=== PATIENT | female | born 1950 | race Caucasian/White ===

== ENCOUNTER 2016-11-13 16:16 | Inpatient (IN) | payer MEDICARE, OTHER ==
[2016-11-13] MEDS ORDERED: ASPIRIN 81 MG CHEW PO STA (16:50)
--- NOTE | 2016-11-13 16:57 | ED ---
General Adult HPI - General Chief complaint: Psychiatric Symptoms Stated complaint: mental health Time Seen by Provider: 11/13/16 16:22 Source: patient, EMS, RN notes reviewed, old records reviewed Mode of arrival: EMS - History of Present Illness Initial comments: 66-year-old female presenting for hallucinations for the past week. Patient states she did not know she was hallucinating until somebody told her today, so she decided to come to the ER. She states she does have a history of depression. She states she has had a history of hallucinations in the past but she believes it was because she was accidentally given illicit drugs. She also mentions that she has had chest pain for the past 2 weeks, as well as pain over her entire body. She denies any shortness of breath associated. She is currently taking Cymbalta for depression. She denies any suicidal or homicidal ideations at this time. She denies any illicit drug use or alcohol use. - Related Data Home Medications Medication Instructions Recorded Confirmed ARIPiprazole [Abilify] 10 mg PO DAILY 01/21/16 11/13/16 Atenolol [Tenormin] 25 mg PO DAILY 01/21/16 11/13/16 Benazepril/Hydrochlorothiazide 1 tab PO DAILY 01/21/16 11/13/16 [Benazepril-Hctz 20-25 mg Tab] Canagliflozin [Invokana] 100 mg PO DAILY 01/21/16 11/13/16 DULoxetine HCL [Cymbalta] 60 mg PO BID 01/21/16 11/13/16 Isosorbide Mononitrate ER [Imdur] 60 mg PO DAILY 01/21/16 11/13/16 Oxybutynin Chloride [Oxybutynin 10 mg PO DAILY 01/21/16 11/13/16 Chloride ER] Ranitidine HCl 150 mg PO BID 01/21/16 11/13/16 Simvastatin [Zocor] 20 mg PO HS 01/21/16 11/13/16 sitaGLIPtin PHOS/metFORMIN HCL 1 tab PO AC-SUPPER 01/21/16 11/13/16 [Janumet Xr 100-1,000 mg Tablet] Loratadine 10 mg PO DAILY 11/13/16 11/13/16 amLODIPine [Norvasc] 10 mg PO DAILY 11/13/16 11/13/16 Allergies Allergy/AdvReac Type Severity Reaction Status Date / Time cephalexin monohydrate Allergy Itching. Verified 11/13/16 17:00 [From Keflex] SWELLING Review of Systems ROS Statement: Those systems with pertinent positive or pertinent negative responses have been documented in the HPI. Constitutional: No fevers. No chills. No change in appetite. No unexpected weight loss. Eyes: No visual changes. No eye pain. No sensitivity to light. HENT: No sinus pressure. No ear pain. No hearing changes. No epistaxis. No sore throat. Respiratory: No cough. No SOB. No wheezing. Cardiovascular: Positive chest pain. No palpitations. No lower extremity edema. Abdomen: No abdominal pain. No nausea. No vomiting. No diarrhea. Genitourinary: No dysuria. No hematuria. No difficulty urinating. No flank pain. Musculoskeletal: No injury. No back pain. Positive body aches. Skin: No rash. No lesions. No lacerations. Neuro: No gross strength deficits. No LOC. No seizures. No headache. Psych: No confusion. No memory changes. No anxiety/depression. Positive hallucinations. ROS Other: All systems not noted in ROS Statement are negative. Past Medical History Past Medical History: Asthma, Diabetes Mellitus, Deep Vein Thrombosis (DVT), GERD/Reflux, Hyperlipidemia, Hypertension, Myocardial Infarction ([place]), Osteoarthritis ([place]) Additional Past Medical History / Comment(s): has abd. HERNIA, recent hospitalization @[facility] for "heart problems" Last Myocardial Infarction Date:: unknown History of Any Multi-Drug Resistant Organisms: None Reported Past Surgical History: Section, Heart Catheterization, Heart Catheterization With Stent, Orthopedic Surgery Additional Past Surgical History / Comment(s): ORIF RIGHT ULNA/RADIUS, left rotator cuff repair Past Anesthesia/Blood Transfusion Reactions: No Reported Reaction Date of Last Stent Placement:: 2010 Past Psychological History: Anxiety, Bipolar, Depression Smoking Status: Never smoker Past Alcohol Use History: Rare Past Drug Use History: None Reported - Past Family History Brother(s) Family Medical History: Cancer General Exam - General Exam Comments Initial Comments: General: Awake and Alert. No acute distress. Does not appear acutely ill. Eyes: JUVE, EOM intact. No nystagmus. No scleral icterus. HENT: Atraumatic, normocephalic. Mucous membranes moist. Trachea midline. Neck: The neck is supple, there is no tenderness or JVD. Cardiovascular: Regular rate and rhythm. No murmur, rub, or gallop is appreciated. Distal pulses intact. Respiratory: Lungs are clear to auscultation bilaterally. No wheezes, rales, rhonchi. No respiratory distress. Gastrointestinal: Soft, Nontender. No rebound or guarding. Non-distended. No masses or organomegaly noted. No CVA tenderness. Musculoskeletal: No tenderness. Normal ROM. No gross deformity. No strength deficits. Neurological: A&Ox3. CN II-XII grossly intact, There are no obvious motor or sensory deficits. Coordination appears grossly intact. Speech is normal. Skin: Skin is warm and dry and no rashes or lesions are noted. Psychiatric: Cooperative, appropriate mood, flat affect, normal judgment. No suicidal ideations or plan. Course Vital Signs 11/13/16 11/13/16 11/13/16 16:17 17:19 18:10 Temperature 97.4 F L Pulse Rate 71 63 74 Respiratory 16 16 16 Rate Blood Pressure 114/58 121/75 128/65 O2 Sat by Pulse 99 67 L 98 Oximetry 11/13/16 18:58 Temperature Pulse Rate 63 Respiratory 16 Rate Blood Pressure 109/61 O2 Sat by Pulse 98 Oximetry EKG Findings - EKG Comments: EKG Findings:: EKG 17:16. Sinus rhythm. Rate 68. NE 176. QRS 80. QT/QTC 418 /444. Normal axis. No STEMI. Nonspecific EKG. Medical Decision Making - Medical Decision Making 66-year-old female presenting for hallucinations. She also mentioned she's had chest pain for the past 2 weeks. She does have a history of ACS with prior stents. EKG without acute ischemia. Patient is given aspirin. Plan for medical clearance including cardiac workup prior to behavior health evaluation. CXR no acute process CT Head no acute process Initial lab work with stable CBC. BMP with evidence of FELIPA, mild electrolyte abnormality. Initial troponin elevated at 0.228 Given elevated troponin and chest pain, concern for NSTEMI. Pt reevaluated. States she still feels some chest pain, morphine ordered. No Nitro at this time as BP is on the lower side. Patient was started on heparin drip after negative CT head imaging. No history of GI bleed per discussion. Updated on results and imaging. Discussed plan for admission for further cardiac management as well as inpatient psychiatric consult. I spoke with fabiano Wallis for Dr. Lemons. She agrees with plan for admission. Agrees with consult to cardiology and Psych. - Lab Data Result diagrams: 11/13/16 17:10 11/13/16 17:10 Lab Results 11/13/16 11/13/16 11/13/16 Range/Units 17:10 17:10 17:10 WBC 6.5 (3.8-10.6) k/uL RBC 4.27 (3.80-5.40) m/uL Hgb 12.9 (11.4-16.0) gm/dL Hct 38.5 (34.0-46.0) % MCV 90.2 (80.0-100.0) fL MCH 30.2 (25.0-35.0) pg MCHC 33.5 (31.0-37.0) g/dL RDW 14.1 (11.5-15.5) % Plt Count 251 (150-450) k/uL Neutrophils % 63 % Lymphocytes % 27 % Monocytes % 6 % Eosinophils % 2 % Basophils % 0 % Neutrophils # 4.1 (1.3-7.7) k/uL Lymphocytes # 1.7 (1.0-4.8) k/uL Monocytes # 0.4 (0-1.0) k/uL Eosinophils # 0.1 (0-0.7) k/uL Basophils # 0.0 (0-0.2) k/uL APTT (22.0-30.0) sec Sodium 138 (137-145) mmol/L Potassium 5.3 H (3.5-5.1) mmol/L Chloride 109 H (98-107) mmol/L Carbon Dioxide 17 L (22-30) mmol/L Anion Gap 12 mmol/L BUN 66 H (7-17) mg/dL Creatinine 2.12 H (0.52-1.04) mg/dL Est GFR (MDRD) Af Amer 28 (>60 ml/min/1.73 sqM) Est GFR (MDRD) Non-Af 23 (>60 ml/min/1.73 sqM) Glucose 216 H (74-99) mg/dL Calcium 8.8 (8.4-10.2) mg/dL Troponin I 0.228 H* (0.000-0.034) ng/mL Urine Color Urine Appearance (Clear) Urine pH (5.0-8.0) Ur Specific [place] (1.001-1.035) Urine Protein (Negative) Urine Glucose (UA) (Negative) Urine Ketones (Negative) Urine Blood (Negative) Urine Nitrite (Negative) Urine Bilirubin (Negative) Urine Urobilinogen (<2.0) mg/dL Ur Leukocyte Esterase (Negative) Urine RBC (0-5) /hpf Urine WBC (0-5) /hpf Ur Squamous Epith Cells (0-4) /hpf Amorphous Sediment (None) /hpf Urine Bacteria (None) /hpf Hyaline Casts (0-2) /lpf Urine Mucus (None) /hpf Urine Opiates Screen (NotDetected) Ur Oxycodone Screen (NotDetected) Urine Methadone Screen (NotDetected) Ur Propoxyphene Screen (NotDetected) Ur Barbiturates Screen (NotDetected) U Tricyclic Antidepress (NotDetected) Ur Phencyclidine Scrn (NotDetected) Ur Amphetamines Screen (NotDetected) U Methamphetamines Scrn (NotDetected) U Benzodiazepines Scrn (NotDetected) Urine Cocaine Screen (NotDetected) U Marijuana (THC) Screen (NotDetected) 11/13/16 11/13/16 Range/Units 17:10 17:26 WBC (3.8-10.6) k/uL RBC (3.80-5.40) m/uL Hgb (11.4-16.0) gm/dL Hct (34.0-46.0) % MCV (80.0-100.0) fL MCH (25.0-35.0) pg MCHC (31.0-37.0) g/dL RDW (11.5-15.5) % Plt Count (150-450) k/uL Neutrophils % % Lymphocytes % % Monocytes % % Eosinophils % % Basophils % % Neutrophils # (1.3-7.7) k/uL Lymphocytes # (1.0-4.8) k/uL Monocytes # (0-1.0) k/uL Eosinophils # (0-0.7) k/uL Basophils # (0-0.2) k/uL APTT 22.5 (22.0-30.0) sec Sodium (137-145) mmol/L Potassium (3.5-5.1) mmol/L Chloride (98-107) mmol/L Carbon Dioxide (22-30) mmol/L Anion Gap mmol/L BUN (7-17) mg/dL Creatinine (0.52-1.04) mg/dL Est GFR (MDRD) Af Amer (>60 ml/min/1.73 sqM) Est GFR (MDRD) Non-Af (>60 ml/min/1.73 sqM) Glucose (74-99) mg/dL Calcium (8.4-10.2) mg/dL Troponin I (0.000-0.034) ng/mL Urine Color Yellow Urine Appearance Clear (Clear) Urine pH 5.5 (5.0-8.0) Ur Specific [place] 1.013 (1.001-1.035) Urine Protein Trace H (Negative) Urine Glucose (UA) Negative (Negative) Urine Ketones Negative (Negative) Urine Blood Negative (Negative) Urine Nitrite Negative (Negative) Urine Bilirubin Negative (Negative) Urine Urobilinogen <2.0 (<2.0) mg/dL Ur Leukocyte Esterase Small H (Negative) Urine RBC 1 (0-5) /hpf Urine WBC 7 H (0-5) /hpf Ur Squamous Epith Cells 5 H (0-4) /hpf Amorphous Sediment Rare H (None) /hpf Urine Bacteria Rare H (None) /hpf Hyaline Casts 5 H (0-2) /lpf Urine Mucus Rare H (None) /hpf Urine Opiates Screen Detected H (NotDetected) Ur Oxycodone Screen Not Detected (NotDetected) Urine Methadone Screen Not Detected (NotDetected) Ur Propoxyphene Screen Not Detected (NotDetected) Ur Barbiturates Screen Not Detected (NotDetected) U Tricyclic Antidepress Not Detected (NotDetected) Ur Phencyclidine Scrn Not Detected (NotDetected) Ur Amphetamines Screen Not Detected (NotDetected) U Methamphetamines Scrn Not Detected (NotDetected) U Benzodiazepines Scrn Not Detected (NotDetected) Urine Cocaine Screen Not Detected (NotDetected) U Marijuana (THC) Screen Not Detected (NotDetected) - EKG Data -: EKG Interpreted by Ks EKG shows normal: sinus rhythm Rate: normal - Radiology Data Radiology results: report reviewed, image reviewed Disposition Clinical Impression: NSTEMI (non-ST elevated myocardial infarction), Hallucinations, Chest pain, FELIPA (acute kidney injury) Disposition: ADMITTED IP TO THIS HOSP Condition: Undetermined Decision to Admit Reason: Admit from EC
[2016-11-13 17:23] LABS: Basophils % (A) 0 %; CH 29.4; CHCM 32.7; Eosinophils # (A) 0.1 k/uL (0-0.7); Eosinophils % (A) 2 %; HCT 38.5 % (34.0-46.0); HDW 2.47; HGB 12.9 gm/dL (11.4-16.0); Luc # (Auto) 0.13; Luc % (Auto) 2; Lymphocytes # (A) 1.7 k/uL (1.0-4.8); Lymphocytes % (A) 27 %; MCH 30.2 pg (25.0-35.0); MCHC 33.5 g/dL (31.0-37.0); MCV 90.2 fL (80.0-100.0); Mean Platelet Volume 8.1; Monocytes # (A) 0.4 k/uL (0-1.0); Monocytes % (A) 6 %; Neutrophils # (A) 4.1 k/uL (1.3-7.7); Neutrophils % (A) 63 %; RBC 4.27 m/uL (3.80-5.40); RDW 14.1 % (11.5-15.5); WBC 6.5 k/uL (3.8-10.6); WBC (Perox) 6.53
[2016-11-13 17:38] LABS: Calcium 8.8 mg/dL (8.4-10.2); Potassium 5.3 mmol/L (3.5-5.1)
[2016-11-13 17:44] LABS: Amorphous Sediment,Urine Rare /hpf; Appearance,Urine Clear (Clear); Bacteria,Urine Rare /hpf; Bilirubin,Urine Negative (Negative); Glucose,Urine (UA) Negative (Negative); Ketones,Urine Negative (Negative); Leukocyte Esterase,Urine Small (Negative); Mucus,Urine Rare /hpf; Nitrite,Urine Negative (Negative); PH, Urine 5.5 (5.0-8.0); Particle Count 3650; Protein,Urine Trace (Negative); RBC,Urine 1 /hpf (0-5); Specific Gravity,Urine 1.013 (1.001-1.035); Squamous Epithelial Cell,Urine 5 /hpf (0-4); UA Billing (MACRO vs. MICRO) MICRO; Urobilinogen,Urine <2.0 mg/dL (<2.0); WBC,Urine 7 /hpf (0-5)
[2016-11-13] MEDS ORDERED: HEPARIN SODIUM,PORCINE 5,000 UNIT/ML 1 ML VIAL IV ONE (18:29)
[2016-11-13] MEDS ORDERED: NITROGLYCERIN SL TABS 0.4 MG TAB SUBLINGUAL PRN (18:32)
--- NOTE | 2016-11-13 18:33 | CT ---
EXAMINATION TYPE: CT brain wo con DATE OF EXAM: 11/13/2016 6:26 PM COMPARISON: 01/04/2011 HISTORY: Dizziness and hallucinations. CT DLP: 1075.20 mGycm Automated exposure control for dose reduction was used. FINDINGS: There is diffuse cerebral auricle atrophy. There is no mass effect nor midline shift. There is no sig n of cranial hemorrhage. There is mucosal thickening with fluid level in the right maxillary sinus. C alvarium is intact. IMPRESSION: Cerebral atrophy. There is new right maxillary sinusitis compared to old exam. No acute intracranial abnormality.
[2016-11-13] MEDS: HEPARIN SODIUM,PORCINE/D5W PMX 25,000 UNIT in DEXTROSE/WATER 1 500ML.BAG IV SCH (18:52)
[2016-11-13] MEDS ORDERED: MORPHINE SULFATE 4 MG/ML SYRINGE IVP STA (18:57)
[2016-11-13] MEDS ORDERED: PNEUMOCOCCAL VACC-PNEUMOVAX 23 25 MCG/0.5 ML VIAL IM ONE (21:00)
--- NOTE | 2016-11-13 21:00 | XR ---
EXAMINATION TYPE: XR chest 2V DATE OF EXAM: 11/13/2016 8:53 PM COMPARISON: 11/30/2010 HISTORY: Chest pain TECHNIQUE: Frontal and lateral views of the chest are obtained. FINDINGS: There is no heart failure nor confluent pneumonic infiltrate. Heart size is normal. There are no hilar masses. There are chest leads. IMPRESSION: No active cardiopulmonary disease. No change.
[2016-11-13 21:10] LABS: Glucose,Whole Blood 296 mg/dL (75-99)
[2016-11-13] MEDS ORDERED: ALPRAZolam 0.25 MG TAB PO PRN (21:34)
[2016-11-13] MEDS ORDERED: TEMAZEPAM 15 MG CAP PO PRN (21:34)
[2016-11-13 22:24] LABS: C Reactive Protein 62.1 mg/L (<10.0); Total Bilirubin 0.7 mg/dL (0.2-1.3); Total Protein 6.3 g/dL (6.3-8.2)
[2016-11-13 23:31] LABS: Creatine Kinase MB 1.4 ng/mL (0.0-2.4)
[2016-11-13 23:41] LABS: Troponin I 0.188 ng/mL (0.000-0.034)
[2016-11-14] MEDS: HYDROmorphone 1 MG/ML 1 ML SYRINGE IVP PRN (03:14)
[2016-11-14 05:25] LABS: Basophils % (A) 1 %; CH 29.5; CHCM 32.3; Eosinophils # (A) 0.2 k/uL (0-0.7); Eosinophils % (A) 3 %; HCT 37.4 % (34.0-46.0); HDW 2.45; Luc # (Auto) 0.19; Luc % (Auto) 3; Lymphocytes # (A) 2.9 k/uL (1.0-4.8); Lymphocytes % (A) 44 %; MCH 29.4 pg (25.0-35.0); Mean Platelet Volume 8.1; Monocytes # (A) 0.4 k/uL (0-1.0); Monocytes % (A) 7 %; Neutrophils # (A) 2.8 k/uL (1.3-7.7); Neutrophils % (A) 43 %; RBC 4.07 m/uL (3.80-5.40); RDW 14.1 % (11.5-15.5); WBC 6.5 k/uL (3.8-10.6); WBC (Perox) 6.89
[2016-11-14 06:01] LABS: Calcium 8.6 mg/dL (8.4-10.2); Potassium 4.8 mmol/L (3.5-5.1)
[2016-11-14 06:04] LABS: Glucose,Whole Blood 184 mg/dL (75-99)
[2016-11-14 06:04] LABS: Creatine Kinase MB 1.1 ng/mL (0.0-2.4)
[2016-11-14 06:14] LABS: Troponin I 0.135 ng/mL (0.000-0.034)
[2016-11-14] MEDS: PANTOPRAZOLE 40 MG TABLET PO SCH (06:37)
[2016-11-14] MEDS: INSULIN LISPRO (humaLOG) 300 UNIT/3 ML VIAL SQ SCH ×4 (06:38→22:50)
--- NOTE | 2016-11-14 07:39 | HP ---
DATE OF ADMISSION: DATE OF SERVICE: 11/13/2016 CHIEF COMPLAINT: Hallucinations as well as chest pain and back pain. HISTORY OF PRESENT ILLNESS: This 66-year-old woman with a past medical history of multiple medical problems, including history of asthma, diabetes mellitus, history of deep venous thrombosis, GERD, hypertension, hyperlipidemia, history of myocardial infarction, degenerative joint disease, history of hernia, history of coronary artery disease and stent, history anxiety, bipolar and depression, being followed by Dr. Marcio Sharpe in the outpatient setting was having back pain to the lower back for the last several weeks. The pain was sharp, constant. Patient unable to sleep. Pain is also in the anterior part of the chest. Patient apparently was drinking alcohol to relieve the pain, about 3 or 4 drinks a day. The patient did not have a chance to come to the hospital because her daughter was incarcerated because of altercation and because she has to take care of the daughter's two children. The patient came to [facility]. The patient also had basic neuropathy and lower limb problems before, Dr. Baca had seen the patient previously. Details are not available at this time. The patient also had some hallucinations and patient came to [facility] and admitted for further evaluation and treatment. After admission, the EKG did not show acute abnormality. CAT scan of the brain showed also showed no acute abnormality. The labs showed multiple abnormalities including creatinine 2.12. The previous creatinine was 1.1, indicating acute renal failure. CO2 79, potassium 5.3. Troponin 0.23. Patient admitted for evaluation and treatment. There is no history of fever, rigors, chills. No history of headache, loss of consciousness, seizures. Patient had weight loss about 160 pounds which is intentional according to her. PAST MEDICAL HISTORY: History of asthma, diabetes, DVT, GERD, hypertension, hyperlipidemia, myocardial infarction, coronary artery disease and stent, history of anxiety, bipolar, depression, not otherwise specified. Medications prior to admission include: 1. Norvasc 10 mg daily. 2. Loratadine 10 mg daily. 3. Abilify 10 mg p.o. daily. 4. Cymbalta 60 mg p.o. b.i.d. 5. Invokana 100 mg p.o. daily. 6. Benazepril hydrochlorothiazide 20/25 p.o. daily. 7. Tenormin 25 mg p.o. daily. 8. Janumet XR 100/1000 one p.o. supper. 9. Zocor 20 mg p.o. q.h.s. 10. Ranitidine 150 mg p.o. b.i.d. 11. Oxybutynin 10 mg p.o. daily. 12. Imdur 60 mg p.o. daily. ALLERGIES: KEFLEX. FAMILY HISTORY: History of cancer in the family. SOCIAL HISTORY: No history of smoking, alcohol as mentioned earlier. REVIEW OF SYSTEMS: ENT: Significant diminished hearing. No diminished vision. CARDIOVASCULAR: As mentioned earlier. RESPIRATORY: As mentioned earlier. GI: No nausea. : No dysuria. NERVOUS SYSTEM: As mentioned earlier. ALLERGY/IMMUNOLOGY: As mentioned earlier. MUSCULOSKELETAL: As mentioned earlier. HEMATOLOGY/ONCOLOGY: As mentioned earlier. ENDOCRINE: As mentioned earlier. CONSTITUTIONAL: As mentioned earlier. DERMATOLOGY: Negative. RHEUMATOLOGY: As mentioned earlier. PSYCHIATRY: As mentioned earlier. PHYSICAL EXAMINATION: Patient is alert and oriented x3. Pulse 66, blood pressure 131/63, respiration 19, temperature 97 degrees, pulse ox 98%. HEENT: Conjunctivae normal. Oral mucosa moist. NECK: No jugular venous distention. No carotid bruit. No lymph node enlargement. CARDIOVASCULAR: S1 and S2, muffled. No S3, no S4. RESPIRATORY: Breath sounds diminished at the bases. No rhonchi, no crackles. Some minimal tenderness in the D12 kyphoscoliosis present. ABDOMEN: Soft, ventral hernia present. Otherwise nontender. No mass palpable. No hepatosplenomegaly. LEGS: No edema, no swelling. NERVOUS SYSTEM: Higher function as mentioned. Moves all four limbs. No focal motor deficits. LYMPHATIC: No lymphadenopathy in the neck, axillae or groin. SKIN: No ulcer, rash or bleeding. LABS: CBC within normal limits. aPTT 22.5. Potassium 5.3 and creatinine is 2.12. Troponin 0.228. LFTs are not available. UA noted. Drug screen is positive for opiates. ASSESSMENT: 1. Neck and chest pain for evaluation rule out acute coronary syndrome. 2. Troponin 0.228. 3. Rule out vertebral pathology. 4. Acute renal failure of undetermined etiology. 5. Hyperkalemia and decreased CO2 possibly secondary to of renal failure. 6. Diabetes mellitus type 2. 7. History of asthma. 8. Obesity with body mass index of 33.5. 9. History of recent intentional weight loss. 10. History of deep venous thrombosis. 11. Gastroesophageal reflux disease. 12. Hypertension. 13. Hyperlipidemia. 14. History of myocardial infarction, coronary artery disease and stent. 15. History of degenerative joint disease. 16. History of abdominal wall hernia. 17. History of right ulnar and radius open reduction and internal fixation. 18. Anxiety, bipolar, depression, not otherwise specified. 19. FULL CODE. RECOMMENDATIONS AND DISCUSSION: In this 66-year-old woman who presented with multiple complex medical issues, will monitor the patient closely, symptomatic treatment. Otherwise, I would also recommend Cardiology consultation and unstable angina protocol. I would also recommend a CT scan of the abdomen and pelvis with views of the spine also because of the pain. Other than that, basic labs are ordered. See orders for further details. Prognosis extremely guarded because of multiple complex medical issues. Discussed with the patient who understands. Further recommendations to follow. Copy of dictation forwarded to Dr. Marcio Sharpe who is the primary physician.
[2016-11-14] MEDS: IOHEXOL 350 MG/ML 25 ML BOTTLE (ORAL USE) PO PRN ×2 (08:03→09:03)
[2016-11-14] MEDS ORDERED: HEPARIN SODIUM,PORCINE 5,000 UNIT/ML 1 ML VIAL IV STA (08:11)
[2016-11-14] MEDS ORDERED: ASPIRIN 325 MG TAB PO SCH (09:00)
[2016-11-14] MEDS ORDERED: NON-FORMULARY DRUG (Canagliflozin [Invokana] 100 MG) PO SCH (09:00)
[2016-11-14] MEDS ORDERED: ALPRAZolam 0.5 MG TAB PO PRN (11:10)
[2016-11-14] MEDS ORDERED: NITROGLYCERIN SL TABS 0.4 MG TAB SUBLINGUAL PRN (11:10)
[2016-11-14] MEDS ORDERED: SODIUM CHLORIDE 0.9% 1,000 ML in EMPTY BAG 1 BAG IV ONE (11:10)
[2016-11-14] MEDS ORDERED: ASPIRIN 325 MG TAB PO STA (11:10)
[2016-11-14] MEDS ORDERED: ALPRAZolam 0.25 MG TAB PO PRN (11:10)
[2016-11-14 11:28] LABS: Glucose,Whole Blood 155 mg/dL (75-99)
--- NOTE | 2016-11-14 11:29 | P.CRDCN ---
History of Present Illness Consult date: 11/14/16 Reason for Consult (text): NSTEMI Chief complaint: hallucinations and chest pain History of present illness: This is a 66-year-old female patient with a known history of diabetes, DVT, hyperlipidemia, hypertension, OK with most recent stent to the mid LAD in January 2016, surgical removal of a benign lung mass over 30 years ago and depression. EMS was called yesterday and patient was brought to the emergency department due to complaints of hallucinations for about a week as well as complaints of chest discomfort, quite severe, radiating to the back worsened with activity and associated with shortness of breath on and off for the last 2-3 weeks. The patient has also been having episodes of dizziness and thought this was related to her [place] so she has not been taking this medication. Apparently the patient's daughter was recently incarcerated and the patient had been caring for her grandson states this is the reason for not seeking medical treatment sooner. In questioning the patient about her medications she denies taking a statin and says she was on Lipitor "a while ago" but ran out of refills. She also has not been taking aspirin or Plavix since her stent placement in January, says she just found the prescriptions for these about a month ago. Upon admission, EKG showed sinus arrhythmia without any acute ST-T wave changes. BUN and creatinine were elevated at 66 and 2.12, down to 59 and 1.70 this morning. Troponins were elevated at 0.228, 0.188 and 0.135. Chest x-ray was negative. Patient had computed tomography scan of the brain without contrast that showed cerebral atrophy and sinusitis. She has been initiated on a heparin drip. She is scheduled to go for a CT of the chest, abdomen and pelvis this morning with oral contrast only. Upon examination, patient is resting comfortably in bed she complains of continued chest discomfort at times, currently pain-free, has been receiving Dilaudid for pain. She denies further hallucinations, denies shortness of breath, dizziness, palpitations. She does complain of some swelling in her left ankle. Past Medical History Past Medical History: Asthma, Diabetes Mellitus, Deep Vein Thrombosis (DVT), GERD/Reflux, Hyperlipidemia, Hypertension, Myocardial Infarction (OK), Osteoarthritis (OA) Additional Past Medical History / Comment(s): has abd. HERNIA Last Myocardial Infarction Date:: unknown History of Any Multi-Drug Resistant Organisms: None Reported Past Surgical History: Section, Heart Catheterization, Heart Catheterization With Stent, Orthopedic Surgery Additional Past Surgical History / Comment(s): ORIF RIGHT ULNA/RADIUS, left rotator cuff repair, stent x2 Past Anesthesia/Blood Transfusion Reactions: No Reported Reaction Date of Last Stent Placement:: 2010 Past Psychological History: Anxiety, Bipolar, Depression Additional Psychological History / Comment(s): take cymbalta. pt reports hallucinations Smoking Status: Never smoker Past Alcohol Use History: Rare Past Drug Use History: None Reported - Past Family History Brother(s) Family Medical History: Cancer Medications and Allergies Home Medications Medication Instructions Recorded Confirmed Type ARIPiprazole [Abilify] 10 mg PO DAILY 01/21/16 11/13/16 History Atenolol [Tenormin] 25 mg PO DAILY 01/21/16 11/13/16 History Benazepril/Hydrochlorothiazide 1 tab PO DAILY 01/21/16 11/13/16 History [Benazepril-Hctz 20-25 mg Tab] Canagliflozin [Invokana] 100 mg PO DAILY 01/21/16 11/13/16 History DULoxetine HCL [Cymbalta] 60 mg PO BID 01/21/16 11/13/16 History Isosorbide Mononitrate ER [Imdur] 60 mg PO DAILY 01/21/16 11/13/16 History Oxybutynin Chloride [Oxybutynin 10 mg PO DAILY 01/21/16 11/13/16 History Chloride ER] Ranitidine HCl 150 mg PO BID 01/21/16 11/13/16 History Simvastatin [Zocor] 20 mg PO HS 01/21/16 11/13/16 History sitaGLIPtin PHOS/metFORMIN HCL 1 tab PO AC-SUPPER 01/21/16 11/13/16 History [Janumet Xr 100-1,000 mg Tablet] Loratadine 10 mg PO DAILY 11/13/16 11/13/16 History amLODIPine [Norvasc] 10 mg PO DAILY 11/13/16 11/13/16 History Allergies Allergy/AdvReac Type Severity Reaction Status Date / Time cephalexin monohydrate Allergy Itching. Verified 11/13/16 17:00 [From Keflex] SWELLING Physical Exam Vitals: Vital Signs Temp Pulse Pulse Resp BP BP Pulse Ox 11/14/16 08:17 97.5 F L 55 L 16 84/47 100 11/14/16 03:49 97.6 F 67 18 117/59 100 11/14/16 00:00 96.9 F L 70 18 109/55 98 11/13/16 20:00 71 18 11/13/16 19:47 97 F L 66 19 131/63 100 11/13/16 18:58 63 16 109/61 98 Intake and Output 11/13/16 11/14/16 11/14/16 22:59 06:59 14:59 Intake Total 142.875 138.098 Output Total 400 Balance -257.125 138.098 Intake: Intake, IV Titration 142.875 138.098 Amount Heparin Sodium,Porcine/ 142.875 138.098 D5w Pmx 25,000 unit In Dextrose/Water 1 500ml. bag @ 12 UNITS/KG/HR 19. 05 mls/hr IV .Q24H [facility] Rx #:[id number] Output: Urine 400 Other: Voiding Method Toilet Toilet Toilet # Voids 1 Weight 80.7 kg 80.4 kg PHYSICAL EXAMINATION: HEENT: Head is atraumatic, normocephalic. Pupils equal, round. Neck is supple. There is no elevated jugular venous pressure. HEART EXAMINATION: Heart sounds regular, S1 and S2 normal. No murmur or gallop heard. CHEST EXAMINATION: Lungs are clear to auscultation and precussion. No chest wall tenderness is noted on palpation or with deep breathing. ABDOMEN: Soft, nontender. Bowel sounds are heard. No organomegaly noted. EXTREMITIES: 1+ peripheral pulses with no evidence of peripheral edema and no calf tenderness noted. NEUROLOGIC patient is awake, alert and oriented x3. . Results 11/14/16 04:48 11/14/16 04:48 Cardiac Enzymes 11/13/16 11/14/16 Range/Units 22:36 04:48 CK-MB (CK-2) 1.4 1.1 (0.0-2.4) ng/mL Troponin I 0.188 H* 0.135 H* (0.000-0.034) ng/mL Coagulation 11/14/16 11/14/16 Range/Units 00:49 06:26 APTT 38.4 H 43.2 H (22.0-30.0) sec Lipids 11/14/16 Range/Units 04:48 Triglycerides 88 (<150) mg/dL Cholesterol 166 (<200) mg/dL HDL Cholesterol 62 H (40-60) mg/dL CBC 11/14/16 Range/Units 04:48 WBC 6.5 (3.8-10.6) k/uL RBC 4.07 (3.80-5.40) m/uL Hgb 12.0 (11.4-16.0) gm/dL Hct 37.4 (34.0-46.0) % Plt Count 239 (150-450) k/uL Comprehensive Metabolic Panel 11/14/16 Range/Units 04:48 Sodium 137 (137-145) mmol/L Potassium 4.8 (3.5-5.1) mmol/L Chloride 111 H (98-107) mmol/L Carbon Dioxide 15 L (22-30) mmol/L BUN 59 H (7-17) mg/dL Creatinine 1.70 H (0.52-1.04) mg/dL Glucose 214 H (74-99) mg/dL Calcium 8.6 (8.4-10.2) mg/dL Current Medications Generic Name Dose Route Start Last Admin Trade Name Freq PRN Reason Stop Dose Admin Hydrocodone Bitart/Acetaminophen 1 each 11/13/16 21:34 [place] 5-325 PO Q6HR PRN Pain Alprazolam 0.25 mg 11/13/16 21:34 Xanax PO TID PRN Anxiety Amlodipine Besylate 10 mg 11/14/16 09:00 Norvasc PO DAILY [facility] Aripiprazole 10 mg 11/14/16 09:00 Abilify PO DAILY [facility] Aspirin 325 mg 11/14/16 09:00 Aspirin PO DAILY [facility] Atenolol 25 mg 11/14/16 09:00 Tenormin PO DAILY [facility] Atorvastatin Calcium 10 mg 11/14/16 21:00 Lipitor PO HS [facility] Duloxetine HCl 60 mg 11/14/16 09:00 Cymbalta PO BID [facility] Hydrochlorothiazide 25 mg 11/14/16 09:00 Hydrodiuril PO DAILY [facility] Hydromorphone HCl 0.5 mg 11/13/16 21:34 11/14/16 03:14 Dilaudid IVP 0.5 mg Q6HR PRN Administration Severe Pain Heparin Sodium/Dextrose 25,000 500 mls @ 19.05 mls/hr 11/13/16 18:30 08:10 unit/ IV Solution IV 17 units/kg/hr .Q24H [facility] 26.98 mls/hr Protocol Titration 12 UNITS/KG/HR Insulin Human Lispro 0 unit 11/14/16 07:30 11/14/16 06:38 Humalog SQ 2 unit ACHS [facility] Administration Protocol Iohexol 25 ml 11/13/16 21:33 11/14/16 08:03 Omnipaque 350 Mg/Ml (For Oral Use) PO 11/14/16 21:33 25 ml Q60M PRN Administration CT Scan Isosorbide Mononitrate 60 mg 11/14/16 09:00 Imdur PO DAILY [facility] Lisinopril 20 mg 11/14/16 09:00 Zestril PO DAILY [facility] Loratadine 10 mg 11/14/16 09:00 Claritin PO DAILY [facility] Nitroglycerin 0.4 mg 11/13/16 18:32 11/13/16 18:57 Nitrostat SUBLINGUAL 0.4 mg Q5M PRN Administration Chest Pain Non-Formulary Medication 100 mg 11/14/16 09:00 Canagliflozin [Invokana] PO DAILY [facility] Oxybutynin Chloride 10 mg 11/14/16 09:00 Ditropan Xl PO DAILY [facility] Pantoprazole Sodium 40 mg 11/14/16 07:30 11/14/16 06:37 Protonix PO Not Given AC-BRKFST [facility] Temazepam 15 mg 11/13/16 21:34 Restoril PO HS PRN Insomnia Intake and Output 11/13/16 11/14/16 11/14/16 22:59 06:59 14:59 Intake Total 142.875 138.098 Output Total 400 Balance -257.125 138.098 Intake: Intake, IV Titration 142.875 138.098 Amount Heparin Sodium,Porcine/ 142.875 138.098 D5w Pmx 25,000 unit In Dextrose/Water 1 500ml. bag @ 12 UNITS/KG/HR 19. 05 mls/hr IV .Q24H [facility] Rx #:[id number] Output: Urine 400 Other: Voiding Method Toilet Toilet Toilet # Voids 1 Weight 80.7 kg 80.4 kg 11/14/16 04:48 11/14/16 04:48 EKG Interpretations (text) Sinus arrhythmia without acute ST-T wave changes Assessment and Plan Plan: Assessment and plan #1 ongoing chest pain, worse with exertion and elevated troponins significant for non-ST elevation myocardial infarction #2 history of CAD with most recent stent in January 2016, not on Plavix or aspirin at home. #3 acute kidney injury #4 diabetes #5 hypertension From cardiology's perspective, continue IV heparin. We will hydrate the patient and check CBC and BMP in the morning. We will resume statin, Plavix and aspirin. Patient to be scheduled for a cardiac catheterization with Dr. LEXUS Gastelum tomorrow. Further recommendations to follow. MANAGER SHIFT note has been reviewed, I agree with a documented findings and plan of care. Patient was seen and examined.
--- NOTE | 2016-11-14 11:32 | CT ---
EXAMINATION TYPE: CT ChestAbdPelvis wo con DATE OF EXAM: 11/14/2016 10:16 AM COMPARISON: NONE HISTORY: 66-year-old female with back pain at T12 vertebra. Weight loss. TECHNIQUE: Contiguous axial scanning of the chest, abdomen, and pelvis without IV contrast. Coronal a nd sagittal reconstructions performed. CT DLP: 1471 mGycm Automated exposure control for dose reduction was used. FINDINGS: CHEST: The heart is normal size with trace pericardial thickening/fluid. Coronary vessel calcifications are present in remarkable for coronary artery disease. The aorta is normal caliber with conventional branching anatomy and mild atherosclerotic calcificatio ns. No thoracic lymphadenopathy. There is some pleural-parenchymal scarring at the peripheral right base. No consolidation or pleural effusion. ABDOMEN: Small hiatal hernia. Noncontrast appearance of the liver, gallbladder, adrenal glands, kidneys, and atrophic pancreas show no gross abnormality. There is a 9 mm area of eggshell calcification in the mid spleen probably jose pherally calcified cyst but nonspecific. Tortuous vessels at the splenic hilum. Lack of IV contrast l imits their evaluation such as for any potential splenic artery aneurysm. No dilated small bowel, free fluid, or free air. There is a small omental fat-containing right lower abdominal ventral wall hernia within measuring 5 mm wide in the herniating fat measuring only 1.1 cm wide, axial image 78. Mild to moderate scattered stool. Oral contrast has progressed to the hepatic flexure. There is moderate stool within the right hemicol on and there is left hemicolonic diverticulosis with a redundant sigmoid colon. No pericolonic inflam matory change. There are scattered prominent but nonenlarged mesenteric lymph nodes are noted. Pelvis: Bladder is nondistended. Uterus and ovaries are visualized. No abnormal fluid collection in the pelvi s or pelvic lymphadenopathy seen. Bones: Mild degenerative changes at the hips. Bilateral L5 pars defects with grade 1 anterolisthesis L5-S1. There is moderate disc/endplate degenerative change in the lower thoracic spine and thoracolumbar noah ction with endplate irregularity and some vacuum phenomenon noted. Multiple endplate Schmorl's nodes along the lower thoracic spine. Facet arthropathy at T12-L1 with grade 1 retrolisthesis at this level. No suspicious endplate erosion s or paravertebral soft tissue abnormality is appreciated. IMPRESSION: 1. MODERATE DEGENERATIVE DISC DISEASE IN THE LOWER THORACIC SPINE AND THORACOLUMBAR JUNCTION. FACET A RTHROPATHY CAUSES A GRADE 1 RETROLISTHESIS AT T12-L1. 2. BILATERAL L5 PARS DEFECTS WITH GRADE 1 ANTEROLISTHESIS AT L5-S1. 3. SMALL HIATAL HERNIA AND A SMALL RIGHT-SIDED LOWER ABDOMINAL HERNIA WITH THE 1 CM WIDE HERNIA SAC C ONTAINING OMENTAL FAT. THE ABDOMINAL WALL DEFECT MEASURES 5 MM. 4. LEFT HEMICOLONIC DIVERTICULOSIS WITHOUT ACUTE DIVERTICULITIS.
[2016-11-14] MEDS ORDERED: ATORVASTATIN 80 MG TAB PO STA (11:37)
[2016-11-14] MEDS: DULoxetine HCL 60 MG CAPSULE.DR PO SCH ×2 (12:02→22:48)
[2016-11-14] MEDS: ARIPiprazole 10 MG TAB PO SCH (12:02)
[2016-11-14] MEDS: CLOPIDOGREL 75 MG TAB PO SCH (12:02)
[2016-11-14] MEDS: OXYBUTYNIN 10 MG TAB.ER.24 PO SCH (12:03)
[2016-11-14] MEDS: LORATADINE 10 MG TAB PO SCH (12:03)
[2016-11-14] MEDS: ATENOLOL 25 MG TAB PO SCH (12:03)
[2016-11-14] MEDS ORDERED: HEPARIN SODIUM,PORCINE 5,000 UNIT/ML 1 ML VIAL IV PRN (14:25)
--- NOTE | 2016-11-14 14:51 | ECHOF ---
Referral Reason:chest pain MEASUREMENTS -------- HEIGHT: 149.9 cm WEIGHT: 80.3 kg BP: 117/59 IVSd: 1.1 cm (0.6 - 1.1) LVIDd: 3.0 cm (3.9 - 5.3) LVPWd: 1.0 cm (0.6 - 1.1) IVSs: 1.1 cm LVIDs: 1.8 cm LVPWs: 1.4 cm Ao Diam: 3.1 cm (2.0 - 3.7) AV Cusp: 1.8 cm (1.5 - 2.6) LA Diam: 3.3 cm (2.7 - 3.8) MV EXCURSION: 18.742 mm (> 18.000) MV EF SLOPE: 99 mm/s (70 - 150) EPSS: 0.5 cm MV E Jaime: 0.65 m/s MV DecT: 246 ms MV A Jaime: 0.79 m/s MV E/A Ratio: 0.83 RAP: 5.00 mmHg RVSP: 19.39 mmHg FINDINGS -------- Sinus rhythm. This was a technically good study. Left ventricular wall thickness is normal. Overall left ventricular systolic function is normal with, an EF between 55 - 60 %. The right ventricle is normal in size and function. The left atrium is normal in size. The right atrium is normal in size. Aortic valve is trileaflet and is mildly thickened. The mitral valve leaflets are mildly thickened. Mild mitral regurgitation is present. Mild tricuspid regurgitation present. The right ventricular systolic pressure, as measured by Doppler, is 19.39mmHg. Pulmonic valve appears structurally normal. The aortic root size is normal. The pericardium is normal. CONCLUSIONS -------- 1. Sinus rhythm. 2. Mild mitral regurgitation is present. 3. Mild tricuspid regurgitation present. 4. The right ventricular systolic pressure, as measured by Doppler, is 19.39mmHg. 5. Pulmonic valve appears structurally normal. 6. The aortic root size is normal. 7. The pericardium is normal. 8. This was a technically good study. 9. Left ventricular wall thickness is normal. 10. Overall left ventricular systolic function is normal with, an EF between 55 - 60 %. 11. The right ventricle is normal in size and function. 12. The left atrium is normal in size. 13. The right atrium is normal in size. 14. Aortic valve is trileaflet and is mildly thickened. 15. The mitral valve leaflets are mildly thickened. PRODUCT SAFETY SPECIALIST: Kristy Garcia RDCS
[2016-11-14] MEDS: HYDROcodone/APAP 5-325MG 1 EACH TAB PO PRN ×2 (14:54→22:51)
[2016-11-14] MEDS: HYDROCHLOROTHIAZIDE 25 MG TAB PO SCH (15:01)
[2016-11-14] MEDS: ISOSORBIDE MONONITRATE ER 60 MG TAB.ER.24H PO SCH (15:01)
[2016-11-14] MEDS: amLODIPine 10 MG TAB PO SCH (15:01)
[2016-11-14] MEDS: LISINOPRIL 20 MG TAB PO SCH (15:01)
[2016-11-14] MEDS: SODIUM CHLORIDE 0.9% 1,000 ML IV SCH ×2 (15:02→22:47)
[2016-11-14 15:31] VITALS: BMI 38.3
[2016-11-14 15:54] LABS: Hemoglobin A1C 9.1 % (4.2-6.1)
[2016-11-14 16:16] LABS: Glucose,Whole Blood 213 mg/dL (75-99)
--- NOTE | 2016-11-14 17:21 | P.CN ---
Psychiatric Consult - . Consult date: 11/14/16 Consult:: 11/14/16 16:55 Date of consultation: [11/14/2016] Reason for consultation: Visual hallucinations Identifying data and history of present illness: The patient is 66-year-old female, who was admitted to the medical floor due to chest pain and she reported hallucinations. The patient stated that her hallucination just started 2 weeks ago, and it's only visual hallucination. She described her hallucinations as seeing things is not existing and her daughter and other family members get angry about reporting that to them. Patient gave examples that she saw her neighbor's dog drawing at the backyard jarrett. Patient denies any any prior history of hallucinations but she admitted to prior history of depression and anxiety. The patient denies any current auditory or visual hallucinations and she denies feeling hopeless or suicidal. Patient states that she has been taking antidepressant medication Cymbalta for the past few years and she feels that the very helpful for depression and anxiety. Patient denies any history of manic episodes including sustained period of time with elevated or irritable mood, uninhibited behavior, grandiosity or inflated self-esteem. The patient denies any history of psychosis including paranoid ideation auditory or visual hallucinations. The patient reports has been suffering from chronic pain, and recently for the past months is started to drink alcohol to cope with her pain. She reports has multiple binge drinking over the past month. She relates her visual hallucinations to do heavy drinking over the past month. Past psychiatric history: Patient reports prior psychiatric hospitalization but she couldn't give more details. Apparently she was admitted at this hospital a few years ago and according to the record, the patient was admitted to the psychiatric floor in 2012 after psychotic episode and probably induced by poor medication compliance. At that time, the psychiatrist restarted risperidone and patient was discharged on risperidone and Cymbalta. According to the patient, she denies taking any other medications besides Cymbalta. Substance use history: Patient reports remote history of other call use disorder and she was able to control her drinking for years, but she reports for the last months has multiple binge of drinking. Past medical history: Myocardial infarction Acute kidney injury Hearing problems Chronic back pain ALLERGIES: Keflex Home medications: Cymbalta 60 mg twice daily Family history of psychiatric illness: Her daughter 5 years ago due to overdose. According to prior medical record, patient has a sister suffer from depression Brief social history: The patient is 66-year-old. She is currently , lives it was her daughter and 2 grandchildren. Patient on Social Security disability. She completed education up to 10th grade. Mental status examination: The patient was seen in [facility], morbidly obese, female. The patient was partially disheveled. Her eye contact is appropriate. Her affect was expressive. She reports her mood as 'fine'. She denies any suicidal or homicidal thoughts. She denies any form of hallucinations or perceptual disturbances. The patient was fully alert, oriented to time place and person and situation. Cognitive function looks intact. Speech was loud that's mainly because the patient has a problem with heating. Assessment: The patient has prior diagnosis with major depressive disorder with psychotic features, but her visual hallucinations at this time are not related to her mood , and the patient currently looked presented with any more problems. The patient might had visual hallucinations related to alcohol. 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 Recommendations: Continue the patient on home psychotropic medication Cymbalta 60 mg by mouth twice a day. Patient to follow up with her outpatient psychiatrist for further monitoring of of any psychotic symptoms.
[2016-11-14 20:55] LABS: Glucose,Whole Blood 174 mg/dL (75-99)
[2016-11-14] MEDS ORDERED: ATORVASTATIN 10 MG TAB PO SCH (21:00)
[2016-11-14] MEDS: HEPARIN SODIUM,PORCINE/D5W PMX 25,000 UNIT in DEXTROSE/WATER 1 500ML.BAG IV SCH (22:47)
[2016-11-15] MEDS: HYDROcodone/APAP 5-325MG 1 EACH TAB PO PRN ×2 (04:25→18:09)
[2016-11-15 05:58] LABS: Glucose,Whole Blood 183 mg/dL (75-99)
[2016-11-15 06:03] LABS: Basophils % (A) 1 %; CH 29.4; CHCM 31.6; Eosinophils # (A) 0.2 k/uL (0-0.7); Eosinophils % (A) 3 %; HCT 36.9 % (34.0-46.0); HDW 2.49; HGB 11.4 gm/dL (11.4-16.0); Luc # (Auto) 0.14; Luc % (Auto) 2; Lymphocytes # (A) 3.1 k/uL (1.0-4.8); Lymphocytes % (A) 49 %; MCV 93.8 fL (80.0-100.0); Mean Platelet Volume 8.3; Monocytes # (A) 0.4 k/uL (0-1.0); Monocytes % (A) 6 %; Neutrophils # (A) 2.5 k/uL (1.3-7.7); Neutrophils % (A) 40 %; RBC 3.94 m/uL (3.80-5.40); RDW 14.1 % (11.5-15.5); WBC 6.4 k/uL (3.8-10.6); WBC (Perox) 6.75
[2016-11-15] MEDS: PANTOPRAZOLE 40 MG TABLET PO SCH (06:13)
[2016-11-15] MEDS: amLODIPine 10 MG TAB PO SCH (06:13)
[2016-11-15] MEDS: ARIPiprazole 10 MG TAB PO SCH (06:13)
[2016-11-15] MEDS: ASPIRIN 81 MG CHEW PO SCH (06:14)
[2016-11-15] MEDS: CLOPIDOGREL 75 MG TAB PO SCH (06:14)
[2016-11-15] MEDS: ATENOLOL 25 MG TAB PO SCH (06:14)
[2016-11-15] MEDS: HYDROCHLOROTHIAZIDE 25 MG TAB PO SCH (06:14)
[2016-11-15] MEDS: DULoxetine HCL 60 MG CAPSULE.DR PO SCH ×2 (06:14→20:59)
[2016-11-15] MEDS: ISOSORBIDE MONONITRATE ER 60 MG TAB.ER.24H PO SCH (06:15)
[2016-11-15] MEDS: LISINOPRIL 20 MG TAB PO SCH (06:15)
[2016-11-15] MEDS: OXYBUTYNIN 10 MG TAB.ER.24 PO SCH (06:15)
[2016-11-15] MEDS: LORATADINE 10 MG TAB PO SCH (06:15)
[2016-11-15] MEDS: SODIUM CHLORIDE 0.9% 1,000 ML IV SCH ×4 (06:15→15:57)
[2016-11-15] MEDS: INSULIN LISPRO (humaLOG) 300 UNIT/3 ML VIAL SQ SCH ×4 (06:26→20:59)
[2016-11-15 07:34] LABS: Calcium 9.8 mg/dL (8.4-10.2)
[2016-11-15 07:52] LABS: Potassium 6.3 mmol/L (3.5-5.1)
[2016-11-15] MEDS ORDERED: SODIUM POLYSTYRENE SULFONATE 15 GM/60 ML BOTTLE PO STA (08:21)
[2016-11-15] MEDS ORDERED: diphenhydrAMINE 50 MG/ML 1 ML VIAL ONE (10:43)
[2016-11-15] MEDS ORDERED: LIDOCAINE 2% INJ 20 MG/ML (20 ML MDV) ONE (10:43)
[2016-11-15] MEDS ORDERED: MIDAZOLAM 2 MG/2 ML VIAL ONE (10:43)
[2016-11-15] MEDS ORDERED: IV FLUID CONTINUATION 650 ML IV ONE (10:50)
[2016-11-15] MEDS ORDERED: VERAPAMIL 2.5 MG/ML 2 ML AMP ONE (10:55)
[2016-11-15] MEDS ORDERED: diphenhydrAMINE 50 MG/ML 1 ML VIAL IVP ONE (11:18)
[2016-11-15] MEDS ORDERED: MIDAZOLAM 2 MG/2 ML VIAL IVP ONE (11:19)
--- NOTE | 2016-11-15 11:19 | PN ---
DATE Of SERVICE: 11/14/2016 This 66-year-old woman was admitted hallucinations. She has chest pain and back pain. She is being closely monitored at this time. Cardiology is following the patient closely and recommending possible hydration and possible cardiac catheterization. Otherwise, Psychiatry also has seen the patient. A 2-D echo with Doppler been done, which showed ejection fraction of 50% to 60%. Other than that, chest, abdomen and pelvis CT scan was done which showed moderate degenerative joint disease of the lower thoracic spine and thoracolumbar junction with as well as bilateral L5 pars defect and small hiatal hernia and left hemicolonic diverticulosis without any diverticulitis. The patient is being closely monitored. PAST MEDICAL HISTORY: Reviewed. REVIEW OF SYSTEMS: CARDIOVASCULAR: No angina, no palpitations. LUNGS: Clear to auscultation. GI: As mentioned. MUSCULOSKELETAL: As mentioned. Current medications are reviewed and include: 1. [place] 5 mg every 6 p.r.n. 2. Xanax 0.5 t.i.d. 3. Norvasc 10 mg daily. 4. Abilify 10 mg daily. 5. Aspirin 81 mg daily. 6. Tenormin 25 mg daily. 7. Lipitor 10 mg at bedtime. 8. Heparin. 9. Hydrodiuril 25 mg daily. 10. Dilaudid. 11. Imdur 60 mg. 12. Zestril 20 mg daily. 13. Claritin 10 mg daily. 14. Nitrostat. 15. Protonix. 16. Restoril. PHYSICAL EXAMINATION: HEENT: Alert, oriented x3. Pulse is 55, blood pressure 83/48, respirations 16, temperature 97.6, pulse 100% on 2 L. HEENT: Conjunctivae normal. CARDIOVASCULAR: S1 and S2 muffled. LUNG: Breath sounds diminished at the bases. A few scattered rhonchi and crackles. ABDOMEN: Soft, nontender. EXTREMITIES: Legs no edema. NERVOUS SYSTEMS: No focal deficits. LABS: Creatinine is 1.7, mildly improved. Troponin 0.135. Otherwise other labs are noted. ASSESSMENT: 1. Neck and c pain for evaluation, possible acute coronary syndrome with troponin 0.228. 2. Back pain. 3. Severe degenerative joint disease at lower thoracic at T12 and L1. 4. Acute renal failure of undetermined etiology, possibly prerenal factors. 5. Hypokalemia. 6. Decreased CO2, possibly secondary to renal failure. 7. Diabetes mellitus type 2. 8. History of asthma. 9. Obesity with body mass index of 33.5. 10. History of recent intentional weight loss. 11. History of deep venous thrombosis. 12. History of gastroesophageal reflux disease. 13. Hypertension, essential. 14. Hyperlipidemia. 15. History of myocardial infarction, coronary artery disease, stent. 16. History of degenerative joint disease. 17. History of abdominal wall hernia. 18. History of right ulnar and radial open reduction and internal fixation. 19. History of anxiety, bipolar, depression, not otherwise specified. 20. FULL CODE. RECOMMENDATIONS: Continue current medications, continue with monitoring and symptomatic treatment. Otherwise at this time I would recommend continue with hydration. Follow closely with cardiology. Proceed with cardiac catheterization. Otherwise, will also get Dr. Jacob for evaluation of the back pain and abnormal CT scan of the vertebrae also. Psychiatric input appreciated. The prognosis is guarded because of multiple complex medical issues. Further recommendations to follow. TARIQD
[2016-11-15] MEDS ORDERED: LIDOCAINE 2% INJ 20 MG/ML SQ ONE (11:25)
[2016-11-15] MEDS ORDERED: IODIXANOL 320 MG/ML 100 ML INTRAARTER ONE (11:40)
[2016-11-15] MEDS ORDERED: RX INFO: IV CONTRAST WAS GIVEN 1 EACH MISC MISCELLANE PRN (12:23)
[2016-11-15 12:28] LABS: Glucose,Whole Blood 133 mg/dL (75-99)
--- NOTE | 2016-11-15 14:53 | PN ---
This lady presented with a non-ST elevation NH has a previous LAD PCI. I advised her regarding coronary angiography and intervention. Risks, benefits, options, rationale were carefully explained. She understands all details and wishes to proceed. I also hydrate her and creatinine is improved to 1.54. However, she received amlodipine and benazepril and she is slightly hyperkalemic. I gave her some Kayexalate and I am going to hydrate her. Blood pressure is also low. She has type 2 diabetes mellitus as well. We will hydrate her. Give her Kayexalate and we will probably proceed with coronary angiography after a re-evaluate her. I discussed my thoughts in detail with the patient. Her chest pain has improved but troponin profile suggests a non-ST elevation NH.
[2016-11-15 16:32] VITALS: RESP 18
[2016-11-15 16:51] LABS: Glucose,Whole Blood 216 mg/dL (75-99)
[2016-11-15 20:49] LABS: Glucose,Whole Blood 212 mg/dL (75-99)
[2016-11-15] MEDS ORDERED: ATORVASTATIN 40 MG TAB PO SCH (21:00)
[2016-11-15] MEDS: HYDROmorphone 1 MG/ML 1 ML SYRINGE IVP PRN (22:30)
[2016-11-16] MEDS: SODIUM CHLORIDE 0.9% 1,000 ML IV SCH ×3 (01:35→03:55)
[2016-11-16] MEDS: HYDROcodone/APAP 5-325MG 1 EACH TAB PO PRN ×2 (03:53→13:43)
[2016-11-16 06:16] LABS: Glucose,Whole Blood 174 mg/dL (75-99)
[2016-11-16 06:24] LABS: Basophils % (A) 0 %; CH 28.7; CHCM 31.9; Eosinophils # (A) 0.1 k/uL (0-0.7); Eosinophils % (A) 2 %; HCT 34.6 % (34.0-46.0); HGB 11.6 gm/dL (11.4-16.0); Luc # (Auto) 0.12; Luc % (Auto) 2; Lymphocytes # (A) 2.1 k/uL (1.0-4.8); Lymphocytes % (A) 39 %; MCH 30.2 pg (25.0-35.0); MCHC 33.4 g/dL (31.0-37.0); MCV 90.4 fL (80.0-100.0); Mean Platelet Volume 7.7; Monocytes # (A) 0.4 k/uL (0-1.0); Monocytes % (A) 8 %; Neutrophils # (A) 2.6 k/uL (1.3-7.7); Neutrophils % (A) 48 %; RBC 3.83 m/uL (3.80-5.40); RDW 13.8 % (11.5-15.5); WBC 5.5 k/uL (3.8-10.6); WBC (Perox) 5.85
[2016-11-16] MEDS: INSULIN LISPRO (humaLOG) 300 UNIT/3 ML VIAL SQ SCH ×2 (06:32→12:21)
[2016-11-16] MEDS: PANTOPRAZOLE 40 MG TABLET PO SCH (06:32)
[2016-11-16 06:38] LABS: Anion Gap 6 mmol/L; Blood Urea Nitrogen 26 mg/dL (7-17); Calcium 8.4 mg/dL (8.4-10.2); Carbon Dioxide 20 mmol/L (22-30); Chloride 113 mmol/L (98-107); Glucose 162 mg/dL (74-99); Non-African American GFR(MDRD) 50 (>60 ml/min/1.73 sqM); Potassium 5.3 mmol/L (3.5-5.1); Sodium 139 mmol/L (137-145)
[2016-11-16] MEDS: DULoxetine HCL 60 MG CAPSULE.DR PO SCH (07:34)
[2016-11-16] MEDS: CLOPIDOGREL 75 MG TAB PO SCH (07:34)
[2016-11-16] MEDS: OXYBUTYNIN 10 MG TAB.ER.24 PO SCH (07:34)
[2016-11-16] MEDS: ASPIRIN 81 MG CHEW PO SCH (07:34)
[2016-11-16] MEDS: ARIPiprazole 10 MG TAB PO SCH (07:34)
[2016-11-16] MEDS: ATENOLOL 25 MG TAB PO SCH (07:34)
[2016-11-16] MEDS: LORATADINE 10 MG TAB PO SCH (07:34)
[2016-11-16 07:41] VITALS: PULSE 72
[2016-11-16] MEDS ORDERED: SODIUM POLYSTYRENE SULFONATE 15 GM/60 ML BOTTLE PO ONE (09:18)
--- NOTE | 2016-11-16 11:18 | PN ---
DATE OF SERVICE: 11/15/2016 This is a 66-year-old woman who was admitted with chest pain and multiple medical problems, had cardiac catheterization. The cardiac cath, the full official report is pending. Cardiac catheterization did not show any significant coronary artery disease. Patient also had a 2-D echo with Doppler, which showed ejection fraction about 55% to 60%. Patient also had a CAT scan of the abdomen and pelvis which was reviewed, previously. Moderate DJD was noted. No chest pain or palpitation. No fever. On exam, alert and oriented x3. Pulse 69, blood pressure 94/61, respiratory rate 18, temperature 97.6, pulse ox 98% on 2 L. CHEST: Conjunctivae normal. NECK: No jugular venous distension. CARDIOVASCULAR: S1, S2, muffled, RESPIRATORY: Breath sounds diminished at the bases. Bilateral scattered rhonchi, no crackles. Abdomen is soft, nontender. LEGS: No edema, no swelling. NERVOUS SYSTEM: No focal deficits. LABS: Potassium 6.3 then, now 5.5, creatinine is 1.54. ASSESSMENT: 1. Neck and chest pain for evaluation, possibly [place] with a troponin of 0.228 and cardiac that is showing mild to modearte significant coronary artery disease. 2. Back pain. 3. Severe degenerative joint disease of the lower thoracic at T12 and L1. 4. Acute renal failure, undetermined etiology, possible prerenal factors. 5. Hyperkalemia secondary to renal failure. 6. Decreased CO2, possible secondary to renal failure. 7. Diabetes mellitus type 2. 8. History of asthma. 9. History of obesity with a body mass index of 33.5. 10. History of recent intentional weight loss. 11. History of deep venous thrombosis. 12. History of gastroesophageal reflux disease. 13. Hypertension, essential. 14. Hyperlipidemia. 15. History of myocardial infarction, coronary artery disease and stent. 16. History of degenerative joint disease. 17. History of abdominal wall hernia. 18. History of right ulnar and radial open ORIF. 19. History of anxiety, bipolar depression, not otherwise specified. 20. FULL CODE. RECOMMENDATIONS: Recommend to continue current medications. Continue with the symptomatic treatment. Otherwise, I would recommend monitor potassium closely. Closely follow with Cardiology and prognosis guarded. Further recommendations to follow. Psychiatry has also been consulted. MTDD
[2016-11-16 12:30] LABS: Glucose,Whole Blood 155 mg/dL (75-99)
--- NOTE | 2016-11-16 12:34 | P.PN ---
Subjective Principal diagnosis: Chest pain This is a 66-year-old female patient with known history of diabetes, hyperlipidemia, hypertension, CAD with prior stenting to the mid LAD in January 2016, prior DVT, prior lung mass, depression. She presented to the hospital with symptoms of chest discomfort. Patient also was not taking her aspirin or Plavix at home for approximately one month now. Her creatinine on admission was 2.1, yesterday 1.5 prior to the cardiac cath, 1.1 this morning. Potassium 5.3. Cardiac catheterization performed yesterday revealed a patent previously stented site was a mild 40-45% lesion in that vessel. She was advised maximum medical therapy, also advised strongly regarding the importance of taking her medications. Blood pressure this morning 113/80 with a heart rate in the 70s. She was complaining of some chest pain this morning, she states the pain worsens with taking deep breaths. Objective - Vital Signs Vital signs: Vital Signs Temp 97.6 F 11/16/16 07:36 Pulse 72 11/16/16 07:36 Resp 18 11/16/16 07:36 BP 113/83 11/16/16 07:36 Pulse Ox 100 11/16/16 07:36 Intake & Output 11/15/16 11/16/16 11/16/16 18:59 06:59 18:59 Intake Total 580 1450 260 Output Total 800 300 Balance -220 1150 260 Weight 82.4 kg Intake: IV 100 800 Sodium Chloride 0.9% 1, 800 000 ml @ 100 mls/hr IV . Q10H VIOLETTA Rx#:[id number] Oral 480 650 260 Output: Urine 800 300 Other: Voiding Method Toilet Toilet # Voids 1 - Exam PHYSICAL EXAMINATION: HEENT: Head is atraumatic, normocephalic. Pupils equal, round. Neck is supple. There is no elevated jugular venous pressure. HEART EXAMINATION: Heart S1, S2 normal. No murmur or gallop heard. CHEST EXAMINATION: Lungs are clear to auscultation and precussion. Positive chest wall tenderness is noted on palpation and with deep breathing. ABDOMEN: Soft, nontender. Bowel sounds are heard. No organomegaly noted. Right groin soft, no evidence of any hematoma. EXTREMITIES: 2+ peripheral pulses with no evidence of peripheral edema and no calf tenderness noted. NEUROLOGIC patient is awake, alert and oriented -3. . - Labs CBC & Chem 7: 11/16/16 05:36 11/16/16 05:36 Labs: Abnormal Lab Results - Last 24 Hours (Table) 11/15/16 11/15/16 11/16/16 Range/Units 16:49 20:46 05:36 Potassium 5.3 H (3.5-5.1) mmol/L Chloride 113 H (98-107) mmol/L Carbon Dioxide 20 L (22-30) mmol/L BUN 26 H (7-17) mg/dL Creatinine 1.10 H (0.52-1.04) mg/dL Glucose 162 H (74-99) mg/dL POC Glucose (mg/dL) 216 H 212 H (75-99) mg/dL 11/16/16 Range/Units 06:15 Potassium (3.5-5.1) mmol/L Chloride (98-107) mmol/L Carbon Dioxide (22-30) mmol/L BUN (7-17) mg/dL Creatinine (0.52-1.04) mg/dL Glucose (74-99) mg/dL POC Glucose (mg/dL) 174 H (75-99) mg/dL Assessment and Plan (1) HTN (hypertension) Status: Acute (2) Hyperlipemia Status: Acute (3) Diabetes Status: Acute (4) Presence of stent in LAD coronary artery Status: Acute (5) S/P cardiac cath Status: Acute (6) FELIPA (acute kidney injury) Status: Acute (7) Chest pain Status: Acute Plan: From cardiology's perspective, we'll give the patient 15 g of Kayexalate, check her potassium level again at 2 PM, if stable she may be able to be discharged home. We will make her a follow-up appointment in the office post discharge with Dr. Haydee Gastelum in 2 weeks. DNP note has been reviewed, I agree with a documented findings and plan of care. Patient was seen and examined.
[2016-11-16 12:40] VITALS: TEMP 97.5
--- NOTE | 2016-11-16 13:07 | CC ---
DATE OF SERVICE: 11/15/2016 PROCEDURE: Left heart catheterization, coronary angiography. Performed by Dr. Delphine Gastelum. CLINICAL INFORMATION: Mrs. Colleen Plata is a 66-year-old lady with a history of type 2 diabetes, hypertension, hyperlipidemia, CAD, who underwent stenting of mid LAD performed by Dr. Sudha Gastelum in January of 2016. However, she did not take her aspirin and Plavix as advised and was lost to followup. She finally came into the hospital with episode of chest pain and a troponin elevation suggestive of [id number] NM and continued to have chest pain. She has mild chronic kidney disease secondary to diabetes and also hyperkalemia. She was hydrated since yesterday and had hyperkalemia which was also addressed with the Kayexalate. She was advised to have coronary angiography in view of non-ST elevation NM and ongoing chest pain. PROCEDURE NOTE: Under local anesthesia and strict aseptic strict precautions, a 6 Salvadorean introducer was placed in the right radial artery. I use a standard Ramez catheters to perform coronary angiography and the same right Ramez catheter was used to check LV pressures but LV gram was not performed. Patient tolerated the procedure well. She received about 50 to 55 mL of dye during the procedure. CARDIAC CATHETERIZATION FINDINGS: The left end-diastolic pressure was about 15 mmHg and there was no gradient across aortic valve. CORONARY ANGIOGRAPHIC FINDINGS LEFT MAIN CORONARY ARTERY: This is a short, patent vessel free of significant disease that bifurcates into LAD and circumflex. There is mild calcification noted. Left main itself is free of significant disease. LEFT ANTERIOR DESCENDING CORONARY ARTERY: This is a good caliber vessel, proximally as a decent caliber, gives off a large diagonal branch and after the diagonal branch, there is stented segment, which is widely patent with a no more than 35% narrowing. Beyond the stented segment in the CROATIAN projection, there is an eccentric 40% to 45% narrowing which is unchanged from the previous study from January of last year. The stented segment is patent, the flow is brisk in the LAD and the diagonal also is a large caliber, large distribution vessel that is free of significant disease, has minor diffuse irregularities, which are unchanged from before. LAD therefore has a 40% plaque beyond the stented segment, but the plaque and the appearance is very stable comparable to the previous study. LEFT POSTERIOR CIRCUMFLEX CORONARY ARTERY: This is a nondominant vessel, has a 40% proximal ostial stenosis, caliber improves. It runs laterally and gives off a posterolateral branch and a small AV groove branch. The entire circumflex system is free of significant disease other than the proximal portion/ostium which has about a 40% narrowing. RIGHT CORONARY ARTERY: Technically a dominant vessel, has about a 40% proximal lesion unchanged from before. Midportion that is somewhat ectatic. No significant disease. There is another 35% distally and it bifurcates into PDA and PLV. The PLV is small in caliber, diffusely diseased. The PDA is larger in caliber but the distal part of the PDA has subtotal occlusion and this area may be responsible for patient's troponin. The distal branches of the PDA show that there is some subtotal occlusion towards the end of the branching area and this may represent some of the troponin elevation, but there are no critical blockages. There is mild to moderate diffuse disease in the branches of RCA and throughout. Right coronary artery is a dominant vessel. LEFT VENTRICULOGRAM: This was not performed. FINAL IMPRESSION: This patient has a patent left anterior descending artery at the site of previous stenting. There is a 40% plaque beyond the stented segment unchanged from before. There is diffuse disease in the distal branches of the right coronary artery, which is a dominant vessel and this may be responsible for her troponin elevation. Circumflex has a 40% ostial lesion unchanged. Filling pressures are acceptable and LV gram was not performed. Only about 55 mL of dye was used. RECOMMENDATION: Findings were discussed with the patient at length. I also talked to her daughter by phone. Will continue medical therapy with risk factor modification, but no intervention at this time.
--- NOTE | 2016-11-16 13:10 | LTR ---
November 15, 2016 RE: Colleen Plata Dear Marcio, Thank you for opportunity to participate in the care of Mrs. Colleen Plata. I am pleased to report to you that she does not have any significant progression of disease. There is evidence of mid LAD disease of about 40%, plaque is unchanged. She has distal branches of RCA have mildly diffuse disease and this may explain her troponin leak. Will continue aggressive medical therapy with risk factor modification and I have advised her regarding complaint with medication. We will hydrate her, check a BUN and creatinine and send her home tomorrow if she remains stable. Thank you for your referral and please call for questions. With kindest regards. Sincerely yours, ELYSIA AKERS MD
[2016-11-16 13:23] VITALS: BP 143/86
--- NOTE | 2016-11-16 14:10 | CONS ---
DATE OF CONSULTATION: 11/16/2016 REASON FOR CONSULT: Hyperkalemia, renal failure. HISTORY OF PRESENT ILLNESS: Patient is a 66-year-old white female who was admitted to the hospital with a history of hallucinations. She also had some chest pain and back pain at the time of admission. She was found to have an elevated troponin at 0.2. Patient was seen by Cardiology and was taken for cardiac catheterization for a [id number] myocardial infarction, and persistent chest pain. On cardiac cath, patient was found to have diffuse disease in the distal branches of the right coronary artery, 40% lesion in the circumflex and patient is being managed with medical therapy. Her potassium was elevated at 5.3 on initial admission and it did go up to 6.3. It is now at 5.3 mEq/L. She has received Kayexalate. Patient had been on NILDA inhibitors which are now discontinued. Serum creatinine was 2.1 on initial admission. It is now down to 1.10 mg/dL. The patient was also mildly acidotic with CO2 at about 17 and that has improved now to about 20. PAST MEDICAL HISTORY: Hypertension, type 2 diabetes, asthma, history of DVT, gastroesophageal reflux disease, history of [place], osteoarthritis, hyperlipidemia. PAST SURGICAL HISTORY: , cardiac catheterization, orthopedic surgery, ORIF right ulna radius, rotator cuff surgery, coronary stent placement. Medications prior to admission included Abilify, Tenormin, Benazepril, hydrochlorothiazide, Invokana, Cymbalta, Imdur, Zocor, Ranitidine, oxybutynin, Norvasc, loratadine, Janumet. Allergies include CEPHALEXIN. REVIEW OF SYSTEMS: As per HPI. Other systems negative On examination, patient is currently comfortable, awake, not in any acute distress. Examination of the heart, S1 and S2. Examination of the lungs, bilateral breath sounds are heard. Abdomen is soft, nontender. Examination of the lower extremities shows no evidence of edema. MUSIC PROMOTER exam is grossly intact. Labs show sodium 139, potassium 5.3, chloride of 113, CO2 of 20, BUN 26, serum creatinine 1.1. Hemoglobin 11.6 g/dL. ASSESSMENT: 1. Acute kidney injury, most likely prerenal, currently improved. 2. Hyperkalemia at the time of admission associated with acute kidney injury and patient had been on NILDA inhibitors at the time of admission. 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 Currently, the potassium is down to 5.3. Patient is getting another dose of Kayexalate. She can be discharged with plans to follow up as outpatient and repeat labs as outpatient. Patient is advised regarding low potassium diet. She will likely benefit from use of diuretics as an outpatient, which can be started in the next few days once renal function stabilizes. We will need to be careful with the NILDA inhibitors given the persistent hyperkalemia. Sometimes use of loop diuretics along with a small dose of sodium bicarb helps to counteract the hyperkalemia from type IV RTA. Patient is advised to continue to avoid the use of NSAIDs. 3. Coronary artery disease, status post non-Q-wave myocardial infarction, status post cardiac catheterization and coronary stent placement. PLAN: Patient can be discharged, maintain her on low-potassium diet. Avoid NILDA inhibitors for now. Repeat labs as outpatient. Consider loop diuretics and small dose of sodium bicarb to help with hyperkalemia if persists as outpatient. Thank you for this consultation.
--- NOTE | 2016-11-17 15:47 | DS ---
DATE OF ADMISSION: 11/13/2016 DATE OF DISCHARGE: 11/16/2016 FINAL DIAGNOSES: 1. Neck and chest pain for evaluation; possibly unstable angina with a troponin 0.228 with cardiac catheterization showing mild to moderate coronary artery disease. 2. Patent stent. 3. Back pain. 4. Severe degenerative joint disease in lower T12 and L1. 5. Mild hyperkalemia. 6. Acute renal failure, possibly prerenal. 7. Hyperkalemia secondary to renal failure. 8. Decreased carbon dioxide, possibly secondary to renal failure. 9. Diabetes mellitus, type 2. 10. History of asthma. 11. Obesity; body mass index of 33.5. 12. History of recent intentional weight loss. 13. History of deep venous thrombosis. 14. History of gastroesophageal reflux disease. 15. Hypertension, essential. 16. Hyperlipidemia. 17. History of myocardial infarction and coronary artery disease, stent. 18. History of degenerative joint disease. 19. History of abdominal wall hernia. 20. History of right ulnar and radial open reduction internal fixation. 21. History of anxiety, bipolar, depression not otherwise specified. 22. FULL CODE. DISCHARGE DISPOSITION: The patient will be discharged in stable condition with guarded prognosis. Cardiology cleared the patient for discharge and Nephrology also cleared the patient for discharge. HISTORY OF PRESENT ILLNESS: This 66-year-old woman with a past medical history of multiple medical problems, as mentioned earlier, was admitted with chest and back pain, possible unstable angina. Troponin was 0.228 and cardiac catheterization showed mild to moderate coronary artery disease and patent stent. Treated symptomatically. Potassium was 5.3. Dr. Johnson saw the patient. Creatinine improved to 1.10. The patient will be discharged in stable condition with guarded prognosis with the following advice and medications: 1. Diet is cardiac. 2. Activity limited until followup. 3. No NILDA inhibitors at this time because of renal failure and hyperkalemia. 4. Follow up with Dr. Marcio Sharpe in 2 to 3 days. 5. Follow up with Dr. Jacob as advised. 6. Abilify 10 mg p.o. daily. 7. Aspirin 81 mg daily. 8. Tenormin 25 mg daily. 9. Lipitor 40 mg at bedtime. 10. Invokana 100 mg p.o. daily. 11. Plavix 75 mg p.o. daily. 12. Cymbalta 60 mg p.o. b.i.d. 13. Loratadine 10 mg p.o. daily. 14. Nitrostat 0.4 sublingually p.r.n. 15. Oxybutynin 10 mg p.o. daily. 16. Ranitidine 150 mg p.o. b.i.d. 17. Sitagliptin/metformin 1 tablet p.o. before meal daily. Once again, the patient will be discharged in stable condition with guarded prognosis.
--- NOTE | 2016-11-18 16:08 | P.PN ---
Progress Note - Text Addendum to discharge summary for Dr. Lemons Date of discharge 11/16/2014 Final Diagnoses: 1. Neck and chest pain for evaluation; possibly unstable angina with troponin 0.2-8 with cardiac catheterization reportedly mild to moderate CAD, possible non -STEMI.
== END 2016-11-16 16:23 | disposition home or self-care (01) | DRG 281 ==
LOC: EC 16:16 → 6SEL 18:33
PROVIDERS: ADMIT Family Medicine; ATTEND Family Medicine
PROC: B211YZZ Fluoroscopy of Multiple Coronary Arteries using Other Contrast (ICD-10-PCS; 2016-11-15)
PROC: 4A023N7 Measurement of Cardiac Sampling and Pressure, Left Heart, Percutaneous Approach (ICD-10-PCS; principal; 2016-11-15 10:48)
DX: I21.4 Non-ST elevation (NSTEMI) myocardial infarction (principal); N17.9 Acute kidney failure, unspecified; E87.2 Acidosis; R44.3 Hallucinations, unspecified; I25.110 Atherosclerotic heart disease of native coronary artery with unstable angina pectoris; E11.40 Type 2 diabetes mellitus with diabetic neuropathy, unspecified; E87.5 Hyperkalemia; E66.9 Obesity, unspecified; E78.5 Hyperlipidemia, unspecified; F41.9 Anxiety disorder, unspecified; I10 Essential (primary) hypertension; I25.2 Old myocardial infarction; J45.909 Unspecified asthma, uncomplicated; K21.9 Gastro-esophageal reflux disease without esophagitis; K44.9 Diaphragmatic hernia without obstruction or gangrene; K57.90 Diverticulosis of intestine, part unspecified, without perforation or abscess without bleeding; M47.9 Spondylosis, unspecified; M19.90 Unspecified osteoarthritis, unspecified site; K46.9 Unspecified abdominal hernia without obstruction or gangrene; Z68.33 Body mass index [BMI] 33.0-33.9, adult; Z79.84 Long term (current) use of oral hypoglycemic drugs; Z79.899 Other long term (current) drug therapy; Z95.5 Presence of coronary angioplasty implant and graft; Z88.1 Allergy status to other antibiotic agents
CPT/HCPCS: 36415; 70450; 71020; 71250; 74176; 80048; 80053; 80061; 80306; 81001; 82150; 82550; 82553; 83036; 83690; 84132; 84484; 85025; 85652; 85730; 86140; 93005; 93306; 93458; 94760; 96365; 96375; 96376; 99285

== ENCOUNTER → 2017-01-22 | Outpatient (CLI) | payer MEDICARE, OTHER ==
[2017-01-22 13:24] LABS: Blood Urea Nitrogen 25 mg/dL (7-17); Non-African American GFR(MDRD) 53 (>60 ml/min/1.73 sqM)
--- NOTE | 2017-01-22 14:25 | MR ---
EXAMINATION TYPE: MR cervical spine wo con DATE OF EXAM: 01/22/2017 COMPARISON: NONE HISTORY: CERVICALGIA TECHNIQUE: Multiplanar, multisequence images of the cervical spine were acquired. C2-C3: Mild degenerative disc disease but no disc herniation or canal stenosis. Neural foramina paten t. C3-C4: Mild degenerative disc disease. There is uncovertebral joint hypertrophy bilaterally but no ev idence of canal stenosis or foraminal encroachment. C4-C5: No disc herniation or canal stenosis. No foraminal encroachment. C5-C6: Large paracentral and and central disc herniation broad-based which abuts the anterior margin the spinal cord. Uncovertebral joint hypertrophy noted at this level with bilateral moderate foramina l encroachment and mild facet arthropathy. Moderate degenerative disc disease. C6-C7: Right paracentral broad-based disc bulging but no canal stenosis. Neural foramina remain paten t. C7-T1: No evidence for degenerative disc disease. No disc bulge/herniation or protrusion. No Canal stenosis. Foramina are patent bilaterally. Cervical segments are intact. There is normal alignment. Cervical spinal cord is of normal signal. Craniovertebral junction relationships are within normal limits. Scoliotic curvature of the vertebr al column. IMPRESSION: 1. Right paracentral and central disc broad-based herniation C5-C6 with compression of the thecal sac and abuts the anterior margin the spinal cord without evidence of displacement or myelitis. 2. Disc bulging paracentrally the right C6-C7. No Canal stenosis. 3. Correlate for scoliosis.
--- NOTE | 2017-01-22 14:30 | MR ---
EXAMINATION TYPE: MR lumbar spine wo con DATE OF EXAM: 01/22/2017 COMPARISON: NONE HISTORY: Back pain TECHNIQUE: T1 and T2 axial and sagittal images of the lumbar spine are submitted. FINDINGS: There is no abnormal signal seen within the visualized spinal cord or paraspinal soft tissu es. At T12-L1 there is moderate to severe degenerative disc disease. There is disc bulging greater parace ntrally and laterally the right with mild right-sided foraminal encroachment. At L1-2 there is degenerative disc disease with facet arthropathy but no canal stenosis or foraminal encroachment. At L2-3 there is no disc herniation. There is facet arthropathy but no foraminal encroachment or tito l stenosis. At L3-4 there is degenerative disc disease and facet arthropathy but no canal stenosis or foraminal e ncroachment. At L4-5 there is degenerative disc disease with severe facet arthropathy. No Canal stenosis. Mild cir cumferential disc bulging with mild bilateral foraminal encroachment. At L5-S1 there is no disc herniation or canal stenosis. There is facet arthropathy. Mild bilateral fo raminal encroachment. Bilateral spondylolysis of L5. IMPRESSION: 1. Multilevel degenerative disc disease with disc bulging greater paracentrally and laterally right T 12-L1 with mild right-sided foraminal encroachment. 2. Multilevel facet arthropathy with severe changes at L5-S1. 3. Bilateral spondylolysis L5 with no evidence of spondylolisthesis. 4. Probable tiny gallstones.
== END | disposition home or self-care (01) ==
LOC: RADMRIMAIN 13:01
PROVIDERS: ATTEND Psychiatry & Neurology Neurology
DX: M50.222 Other cervical disc displacement at C5-C6 level (principal); M51.35 Other intervertebral disc degeneration, thoracolumbar region; M51.25 Other intervertebral disc displacement, thoracolumbar region; M46.87 Other specified inflammatory spondylopathies, lumbosacral region; M47.816 Spondylosis without myelopathy or radiculopathy, lumbar region; Z88.1 Allergy status to other antibiotic agents
CPT/HCPCS: 36415; 72141; 72148; 82565; 84520

== ENCOUNTER → 2017-05-20 | Outpatient (CLI) | payer MEDICARE, OTHER ==
--- NOTE | 2017-05-20 13:24 | CT ---
EXAMINATION TYPE: CT abdomen pelvis w con DATE OF EXAM: 05/20/2017 HISTORY: Umbilical hernia CT DLP: 1575.10mGycm Automated Exposure Control for Dose Reduction was Utilized. CONTRAST: CT scan of the abdomen and pelvis is performed with IV Contrast, patient injected with 80 ml mL of Vi sipaque 320. COMPARISON: 11/14/2016 FINDINGS: LUNG BASES: Linear peripheral right lower lobe atelectasis is appreciated. Again there is a small hia suze hernia. LIVER/GB: The liver parenchyma enhances homogeneously without ductal dilatation or focal lesion. Gall bladder is unremarkable with no evidence of radiopaque calculi. PANCREAS: Mild pancreatic parenchymal atrophy is seen without ductal dilatation. SPLEEN: Peripherally calcified approximately 1.0 cm splenic lesion is favored to be benign and may re present posttraumatic calcified cyst. No evidence of splenic arterial pseudoaneurysm at the hilum is questioned on the prior exam. ADRENALS: Symmetric without nodularity or hypertrophy. KIDNEYS: Peripherally lobulated contour may relate to congenital lobulation or sequela of prior injuries. 7 mm left lower pole renal cortically-based hypoattenuated lesion is too small to accurate ly characterize. BOWEL: Again the bowel is nondilated with moderate amount of retained colonic stool and few scattered colonic diverticula without pericolonic fat stranding. LYMPH NODES: No greater than 1cm abdominal or pelvic lymph nodes are appreciated. OSSEOUS STRUCTURES: Multilevel degenerative changes are again appreciated of the thoracolumbar spine and femoral acetabular joints with bilateral L5 pars interarticularis defects and grade 1 anterolisth esis of L5 on S1. Mild retrolisthesis of T12 with respect to L1 is again appreciated. OTHER: There is redemonstration of a small ventral hernia containing mesenteric fat with a narrow nec k measuring approximately 5.5 mm located approximately 1.6 cm above the umbilicus with the hernia jasbir suring approximately 1.1 cm. IMPRESSION: 1. Redemonstration of a mesenteric fat filled supraumbilical ventral hernia with a narrow neck measur ing 5.5 mm overall unchanged from the prior exam. 2. Colonic diverticulosis without evidence of diverticulitis.
== END | disposition home or self-care (01) ==
LOC: RADCTMAIN 10:39
PROVIDERS: ATTEND Surgery
DX: K43.9 Ventral hernia without obstruction or gangrene (principal); K57.30 Diverticulosis of large intestine without perforation or abscess without bleeding
CPT/HCPCS: 82565; 84520; 74177; 36415; Q9967

== ENCOUNTER 2017-06-29 07:09 | Day surgery (SDC) | payer MEDICARE, OTHER ==
[2017-06-28 09:44] VITALS: BMI 43.2
[~2017-06-29 07:09] MED LIST: LACTATED RINGERS 1,000 ML IV SCH
[2017-06-29 07:27] VITALS: TEMP 98.6
[2017-06-29] MEDS ORDERED: INSULIN ASPART 100 UNIT/ML 1 ML 10 ML VIAL SQ ONE (07:38)
[2017-06-29 07:53] LABS: Glucose,Whole Blood 328 mg/dL (75-99)
[2017-06-29] MEDS ORDERED: LIDOCAINE 1% INJ 10MG/ML (20 ML MDV) ONE (08:15)
[2017-06-29] MEDS ORDERED: PROPOFOL 10 MG/ML 20 ML VIAL IV ONE (08:15)
--- NOTE | 2017-06-29 08:39 | P.PCN ---
Date of Procedure: 06/29/17 Preoperative Diagnosis: Prior history of cecal polyp Postoperative Diagnosis: Sigmoid diverticuli, internal hemorrhoids Procedure(s) Performed: Colonoscopy Anesthesia: MAC Surgeon: Marie Butcher Estimated Blood Loss (ml): 0 IV fluids (ml): 100 Pathology: none sent Condition: stable Disposition: PACU Indications for Procedure: Prior history of cecal polyp Operative Findings: Sigmoid diverticuli, internal hemorrhoids Description of Procedure: Patient was taken to the endoscopy suite and placed in the left lateral decubitus position. Following sedation rectal examination was performed. Patient was noted to have adequate sphincter tone with no masses. Colonoscope was passed through the anus into the rectum. The bowel prep was somewhat suboptimal however we were able to visualize well enough impresses scope through the sigmoid colon splenic flexure transverse colon hepatic flexure right colon down to the area of the cecum. Circumferential observation of the mucosa did not reveal any lesions of concern in the cecum or right colon. No lesions of concern were noted in the transverse colon. No mucosal lesions of concern were noted in the left colon or sigmoid colon. Diverticuli were identified in the sigmoid colon. The scope was brought down into the rectum where it was retroflexed and internal hemorrhoids were identified. Impression/plan: 1. Internal hemorrhoids 2. Scattered diverticuli in the sigmoid colon 3. Somewhat suboptimal bowel prep Plan: 1. Conservative management of diverticuli and hemorrhoids 2. Secondary to suboptimal bowel prep would recommend repeat scope in 3-5 years unless patient notices a symptoms
--- NOTE | 2017-06-29 08:40 | P.DS ---
Providers Attending physician: Marie Butcher Primary care physician: Marcio Sharpe Plan - Discharge Summary New Discharge Prescriptions: No Action Ranitidine HCl 150 mg PO BID Oxybutynin Chloride [Oxybutynin Chloride ER] 10 mg PO BID ARIPiprazole [Abilify] 10 mg PO DAILY DULoxetine HCL [Cymbalta] 60 mg PO BID Loratadine 10 mg PO DAILY Aspirin 81 mg PO DAILY #30 chew Clopidogrel [Plavix] 75 mg PO DAILY #30 tab Simvastatin [Zocor] 20 mg PO DAILY Benazepril HCl [Lotensin] 20 mg PO DAILY Albuterol Inhaler [Ventolin Hfa Inhaler] 1 - 2 puff INHALATION Q6HR PRN PRN Reason: Shortness Of Breath Discharge Medication List ARIPiprazole [Abilify] 10 mg PO DAILY 01/21/16 [History] DULoxetine HCL [Cymbalta] 60 mg PO BID 01/21/16 [History] Oxybutynin Chloride [Oxybutynin Chloride ER] 10 mg PO BID 01/21/16 [History] Ranitidine HCl 150 mg PO BID 01/21/16 [History] Loratadine 10 mg PO DAILY 11/13/16 [History] Aspirin 81 mg PO DAILY #30 chew 11/16/16 [Rx] Clopidogrel [Plavix] 75 mg PO DAILY #30 tab 11/16/16 [Rx] Albuterol Inhaler [Ventolin Hfa Inhaler] 1 - 2 puff INHALATION Q6HR PRN [History] Benazepril HCl [Lotensin] 20 mg PO DAILY 06/28/17 [History] Simvastatin [Zocor] 20 mg PO DAILY 06/28/17 [History] Activity/Diet/Wound Care/Special Instructions: Diverticular diet Discharge Disposition: HOME SELF-CARE
[2017-06-29 09:14] LABS: Glucose,Whole Blood 250 mg/dL (75-99)
[2017-06-29 09:20] VITALS: BP 150/86; PULSE 80; RESP 18
== END 2017-06-29 09:36 | disposition home or self-care (01) ==
LOC: ORWHC2ENDO 07:09
PROVIDERS: ATTEND Surgery
DX: Z12.11 Encounter for screening for malignant neoplasm of colon (principal); K57.30 Diverticulosis of large intestine without perforation or abscess without bleeding; K64.8 Other hemorrhoids; I25.10 Atherosclerotic heart disease of native coronary artery without angina pectoris; I10 Essential (primary) hypertension; E78.5 Hyperlipidemia, unspecified; J45.909 Unspecified asthma, uncomplicated; E11.9 Type 2 diabetes mellitus without complications; K21.9 Gastro-esophageal reflux disease without esophagitis; M19.90 Unspecified osteoarthritis, unspecified site; R32 Unspecified urinary incontinence; Z86.018 Personal history of other benign neoplasm; Z88.1 Allergy status to other antibiotic agents; Z79.02 Long term (current) use of antithrombotics/antiplatelets; Z79.82 Long term (current) use of aspirin; Z79.899 Other long term (current) drug therapy; Z86.718 Personal history of other venous thrombosis and embolism; Z95.5 Presence of coronary angioplasty implant and graft; Z82.49 Family history of ischemic heart disease and other diseases of the circulatory system
CPT/HCPCS: G0105; J2001; J2704; 45378

== ENCOUNTER 2017-11-13 12:30 | Emergency (ER) | payer MEDICARE, OTHER ==
--- NOTE | 2017-11-13 12:51 | ED ---
General Adult HPI - General Chief complaint: Recheck/Abnormal Lab/Rx Stated complaint: Abdominal Mass Time Seen by Provider: 11/13/17 12:33 Source: patient, RN notes reviewed, old records reviewed Mode of arrival: EMS Limitations: no limitations - History of Present Illness Initial comments: This is a 59-year-old female to the ER for evaluation. Patient was essay for evaluation of abdominal pain abdominal mass. Patient has history of CVA. No recent fevers he has complete of right-sided abdominal pain. No nausea no vomiting no diarrhea. Patient states she was sent in for evaluation of REGARDING MASS ON ABDOMINAL WALL. - Related Data Home Medications Medication Instructions Recorded Confirmed ARIPiprazole [Abilify] 10 mg PO HS 01/21/16 11/13/17 DULoxetine HCL [Cymbalta] 60 mg PO BID 01/21/16 11/13/17 Oxybutynin Chloride [Oxybutynin 10 mg PO BID@0800,2000 01/21/16 11/13/17 Chloride ER] Ranitidine HCl 150 mg PO BID 01/21/16 11/13/17 Loratadine 10 mg PO DAILY 11/13/16 11/13/17 Acetaminophen Tab [Tylenol Tab] 650 mg PO Q6H PRN 11/13/17 11/13/17 Antifungal Powder(Unknown) 1 applic TOPICAL BID 11/13/17 11/13/17 Atorvastatin [Lipitor] 40 mg PO HS 11/13/17 11/13/17 Cranberry Fruit Extract [Cranberry] 500 mg PO HS 11/13/17 11/13/17 Ergocalciferol (Vitamin D2) 50,000 unit PO HOPPER 11/13/17 11/13/17 [Vitamin D2] Ertapenem [INVanz] 1 gm IVPB HS 11/13/17 11/13/17 HYDROcodone/APAP 7.5-325MG [[place] 1 tab PO Q4H 11/13/17 11/13/17 7.5-325] HYDROcodone/APAP 7.5-325MG [[place] 1 tab PO Q6H PRN 11/13/17 11/13/17 7.5-325] INSULIN LISPRO (humaLOG) [humaLOG] See Protocol SQ ACHS@07,11,16,20 11/13/1702/23 Metoprolol Tartrate [Lopressor] 12.5 mg PO BID 11/13/17 11/13/17 Nitroglycerin Sl Tabs [Nitrostat] 0.4 mg SUBLINGUAL Q5M PRN 11/13/17 11/13/17 Pioglitazone [Actos] 30 mg PO DAILY 11/13/17 11/13/17 Previous Rx's Medication Instructions Recorded Aspirin 81 mg PO DAILY #30 chew 11/16/16 Allergies Allergy/AdvReac Type Severity Reaction Status Date / Time cephalexin monohydrate Allergy Itching. Verified 11/13/17 13:10 [From Keflex] SWELLING Review of Systems ROS Statement: Those systems with pertinent positive or pertinent negative responses have been documented in the HPI. ROS Other: All systems not noted in ROS Statement are negative. Past Medical History Past Medical History: Asthma, Diabetes Mellitus, Deep Vein Thrombosis (DVT), GERD/Reflux, Hyperlipidemia, Hypertension, Myocardial Infarction ([place]), Osteoarthritis (OA) Additional Past Medical History / Comment(s): ABD HERNIA right sided Last Myocardial Infarction Date:: unknown History of Any Multi-Drug Resistant Organisms: None Reported Past Surgical History: Section, Heart Catheterization, Heart Catheterization With Stent, Orthopedic Surgery Additional Past Surgical History / Comment(s): ORIF RIGHT ULNA/RADIUS, left rotator cuff repair, stent x2, picc line inserted for IV ABX 11/09/2017 Past Anesthesia/Blood Transfusion Reactions: No Reported Reaction Date of Last Stent Placement:: 11/2016 Past Psychological History: Anxiety, Bipolar, Depression Smoking Status: Never smoker Past Alcohol Use History: None Reported Past Drug Use History: None Reported - Past Family History Brother(s) Family Medical History: Cancer General Exam - General Exam Comments Initial Comments: Right abdominal wall tenderness Limitations: no limitations General appearance: alert, in no apparent distress Head exam: Present: atraumatic, normocephalic, normal inspection Eye exam: Present: normal appearance, PERRL, EOMI. Absent: scleral icterus, conjunctival injection, periorbital swelling ENT exam: Present: normal exam, mucous membranes moist Neck exam: Present: normal inspection. Absent: tenderness, meningismus, lymphadenopathy Respiratory exam: Present: normal lung sounds bilaterally. Absent: respiratory distress, wheezes, rales, rhonchi, stridor Cardiovascular Exam: Present: regular rate, normal rhythm, normal heart sounds. Absent: systolic murmur, diastolic murmur, rubs, gallop, clicks GI/Abdominal exam: Present: soft, normal bowel sounds. Absent: distended, tenderness, guarding, rebound, rigid Extremities exam: Present: normal inspection, full ROM, normal capillary refill. Absent: tenderness, pedal edema, joint swelling, calf tenderness Back exam: Present: normal inspection Neurological exam: Present: alert, oriented X3, CN II-XII intact Psychiatric exam: Present: normal affect, normal mood Skin exam: Present: warm, dry, intact, normal color. Absent: rash Course Vital Signs 11/13/17 11/13/17 11/13/17 12:37 14:49 16:46 Temperature 98.9 F 97.9 F 97.8 F Pulse Rate 89 83 82 Respiratory 18 16 16 Rate Blood Pressure 159/79 142/81 160/70 O2 Sat by Pulse 96 96 94 L Oximetry - Reevaluation(s) Reevaluation #1: 11/13/17 17:36 Patient with no specific improvement, still with pain Medical Decision Making - Medical Decision Making 59 female the ER for evaluation regarding cellulitis. Patient has history of abdominal pain, CVA. Will admit for IV antibiotics - Lab Data Result diagrams: 11/13/17 16:25 11/13/17 16:25 Lab Results 11/13/17 11/13/17 11/13/17 Range/Units 16:25 16:25 16:25 WBC 6.0 (3.8-10.6) k/uL RBC 3.58 L (3.80-5.40) m/uL Hgb 10.1 L (11.4-16.0) gm/dL Hct 31.8 L (34.0-46.0) % MCV 88.6 (80.0-100.0) fL MCH 28.2 (25.0-35.0) pg MCHC 31.8 (31.0-37.0) g/dL RDW 14.2 (11.5-15.5) % Plt Count 354 (150-450) k/uL Neutrophils % 58 % Lymphocytes % 31 % Monocytes % 5 % Eosinophils % 4 % Basophils % 1 % Neutrophils # 3.5 (1.3-7.7) k/uL Lymphocytes # 1.8 (1.0-4.8) k/uL Monocytes # 0.3 (0-1.0) k/uL Eosinophils # 0.2 (0-0.7) k/uL Basophils # 0.0 (0-0.2) k/uL Sodium 140 (137-145) mmol/L Potassium 5.1 (3.5-5.1) mmol/L Chloride 106 (98-107) mmol/L Carbon Dioxide 23 (22-30) mmol/L Anion Gap 11 mmol/L BUN 18 H (7-17) mg/dL Creatinine 0.80 (0.52-1.04) mg/dL Est GFR (CKD-EPI)AfAm 88 (>60 ml/min/1.73 sqM) Est GFR (CKD-EPI)NonAf 76 (>60 ml/min/1.73 sqM) Glucose 150 H (74-99) mg/dL Calcium 8.8 (8.4-10.2) mg/dL Total Bilirubin 0.3 (0.2-1.3) mg/dL AST 36 (14-36) U/L ALT 31 (9-52) U/L Alkaline Phosphatase 112 (38-126) U/L Total Protein 5.6 L (6.3-8.2) g/dL Albumin 3.0 L (3.5-5.0) g/dL Amylase 54 (30-110) U/L Lipase 53 (23-300) U/L Urine Color Light Yellow Urine Appearance Clear (Clear) Urine pH 7.0 (5.0-8.0) Ur Specific [place] 1.007 (1.001-1.035) Urine Protein Negative (Negative) Urine Glucose (UA) Negative (Negative) Urine Ketones Negative (Negative) Urine Blood Negative (Negative) Urine Nitrite Negative (Negative) Urine Bilirubin Negative (Negative) Urine Urobilinogen <2.0 (<2.0) mg/dL Ur Leukocyte Esterase Negative (Negative) - Radiology Data Radiology results: report reviewed (Ultrasound abdomen likely cellulitis CT abdomen pelvis cellulitis), image reviewed Disposition Clinical Impression: Abdominal wall cellulitis Disposition: ADMITTED IP TO THIS HOSP Condition: Good Referrals: Tre Denise DO [Primary Care Provider] - 1-2 days
[2017-11-13] MEDS ORDERED: HYDROcodone/APAP 5-325MG 1 EACH TAB PO STA (13:56)
[2017-11-13 14:51] VITALS: RESP 16
--- NOTE | 2017-11-13 14:57 | US ---
EXAMINATION TYPE: US abdomen limited DATE OF EXAM: 11/13/2017 COMPARISON: CT abdomen and pelvis May 20, 2017 CLINICAL HISTORY: Pain. Patient feels a lump RLQ for 2 days. EXAM MEASUREMENTS: Liver Length: 18.4 cm Gallbladder Wall: 0.2 cm CBD: 0.5 cm Right Kidney: 10.8 x 4.2 x 4.7 cm Technical limitations due to patient's body habitus and large amount of overlying bowel content Pancreas: Tail obscured by overlying bowel gas, duct = 0.4cm Liver: attenuating Gallbladder: no evidence of stones Evidence for sonographic Lazo's sign: no CBD: appears wnl as visualized Right Kidney: limited evaluation, no evidence of hydronephrosis Scanned within patient's area of concern, soft tissue edema noted, unable to identify any distinct mass at this time by ultrasound Suboptimal study per technologist due to patient's body habitus and overlying bowel gas. Pancreatic d uct is visualized and minimally dilated on images saved. Some generalized atrophy of the pancreas is seen on comparison CT. Visualized liver shows no ductal dilatation. Slightly heterogeneous hyperechoi c appearance of liver is present favoring fatty infiltration. No gallstones or ultrasound evidence fo r acute cholecystitis. Limited images right kidney show no gross hydronephrosis. Towards fundus study there is moderate to severe subcutaneous edema at area of swelling in the right lower quadrant witho ut well-formed fluid collection or suspicious mass. IMPRESSION: Moderate to severe subcutaneous edema raises concern for cellulitis. No well-formed absce ss. No suspicious mass identified on images saved.
[2017-11-13] MEDS ORDERED: RX INFO: IV CONTRAST WAS GIVEN 1 EACH MISC MISCELLANE PRN (16:04)
[2017-11-13] MEDS ORDERED: SODIUM CHLORIDE 0.9% 1,000 ML IV STA (16:04)
[2017-11-13] MEDS ORDERED: VANCOMYCIN IV PER PHARMACY 1 EACH MISC MISCELLANE PRN (16:06)
[2017-11-13] MEDS ORDERED: VANCOMYCIN 1,750 MG in SODIUM CHLORIDE 0.9% 250 ML IVPB STA (16:16)
[2017-11-13 16:44] LABS: Appearance,Urine Clear (Clear); Basophils % (A) 1 %; Bilirubin,Urine Negative (Negative); Blood,Urine Negative (Negative); Color,Urine Light Yellow; Eosinophils # (A) 0.2 k/uL (0-0.7); Eosinophils % (A) 4 %; Glucose,Urine (UA) Negative (Negative); HCT 31.8 % (34.0-46.0); HGB 10.1 gm/dL (11.4-16.0); Ketones,Urine Negative (Negative); Leukocyte Esterase,Urine Negative (Negative); Lymphocytes # (A) 1.8 k/uL (1.0-4.8); Lymphocytes % (A) 31 %; MCH 28.2 pg (25.0-35.0); MCHC 31.8 g/dL (31.0-37.0); MCV 88.6 fL (80.0-100.0); Mean Platelet Volume 7.5; Monocytes # (A) 0.3 k/uL (0-1.0); Monocytes % (A) 5 %; Neutrophils # (A) 3.5 k/uL (1.3-7.7); Neutrophils % (A) 58 %; Nitrite,Urine Negative (Negative); Platelet Count 354 k/uL (150-450); Protein,Urine Negative (Negative); RBC 3.58 m/uL (3.80-5.40); RDW 14.2 % (11.5-15.5); Specific Gravity,Urine 1.007 (1.001-1.035); Urobilinogen,Urine <2.0 mg/dL (<2.0)
[2017-11-13 16:55] LABS: Calcium 8.8 mg/dL (8.4-10.2); Potassium 5.1 mmol/L (3.5-5.1); Total Bilirubin 0.3 mg/dL (0.2-1.3); Total Protein 5.6 g/dL (6.3-8.2)
--- NOTE | 2017-11-13 16:58 | CT ---
EXAMINATION TYPE: CT abdomen pelvis w con DATE OF EXAM: 11/13/2017 HISTORY: Right flank swelling that wraps around to right groin. CT DLP: 2179.5mGycm Automated Exposure Control for Dose Reduction was Utilized. CONTRAST: CT scan of the abdomen and pelvis is performed without oral but with IV Contrast, patient injected wi th 100 mL of Isovue 300. COMPARISON: None. FINDINGS: LUNG BASES: There is suspected coronary stent in the left circumflex distribution redemonstrated. The re is right basilar linear scarring just above diaphragm. LIVER/GB: Liver is hypodense relative to spleen suggesting fatty infiltration similar to prior. PANCREAS: No significant abnormality is seen. SPLEEN: Spleen is upper limits of normal in size with stable central 1.0 cm calcification could refle ct a rim calcified cyst. ADRENALS: No significant abnormality is seen. KIDNEYS: There is symmetric cortical medullary uptake and excretion without evidence of hydronephrosi s bilaterally. There is a subcentimeter hypodense lesion anteriorly lower pole of left kidney that is too small to further characterize seen best series 5 image 38 more prominent in size versus prior, f ollow-up CT or MRI in 6 months time is advised to continue to monitor. BOWEL: Evaluation of bowel is suboptimal secondary to lack of enteric contrast. There is no suspiciou s small or large bowel dilatation. There is some prominence of fecal material in the right colon. Div erticula are seen throughout the colon most prominent in the left and sigmoid colon. UTERUS/ADNEXA: Anteverted uterus is redemonstrated extending to right of midline, . Underlying fibroi d is suspected. This can be better evaluated with pelvic ultrasound if desired. LYMPH NODES: No greater than 1cm abdominal or pelvic lymph nodes are appreciated. OSSEOUS STRUCTURES: There is moderate multilevel spurring and disc space narrowing in the thoracic sp ine. Bilateral pars defect L5 level without significant spondylolisthesis is redemonstrated. OTHER: There is moderate diffuse subcutaneous edema most prominent along the right flank and in the b ilateral gluteal region. There is moderate axial joint space loss in both hips. There is stable small fat-containing umbilical hernia on axial image 46. IMPRESSION: No significant new or acute finding is seen to account for patient's clinical symptoms.
[2017-11-13] MEDS ORDERED: SODIUM CHLORIDE 0.9% 1,000 ML IV ONE (17:34)
--- NOTE | 2017-11-13 17:49 | ED ---
Medical Decision Making - Lab Data Result diagrams: 11/13/17 16:25 11/13/17 16:25 Lab Results 11/13/17 11/13/17 11/13/17 Range/Units 16:25 16:25 16:25 WBC 6.0 (3.8-10.6) k/uL RBC 3.58 L (3.80-5.40) m/uL Hgb 10.1 L (11.4-16.0) gm/dL Hct 31.8 L (34.0-46.0) % MCV 88.6 (80.0-100.0) fL MCH 28.2 (25.0-35.0) pg MCHC 31.8 (31.0-37.0) g/dL RDW 14.2 (11.5-15.5) % Plt Count 354 (150-450) k/uL Neutrophils % 58 % Lymphocytes % 31 % Monocytes % 5 % Eosinophils % 4 % Basophils % 1 % Neutrophils # 3.5 (1.3-7.7) k/uL Lymphocytes # 1.8 (1.0-4.8) k/uL Monocytes # 0.3 (0-1.0) k/uL Eosinophils # 0.2 (0-0.7) k/uL Basophils # 0.0 (0-0.2) k/uL Sodium 140 (137-145) mmol/L Potassium 5.1 (3.5-5.1) mmol/L Chloride 106 (98-107) mmol/L Carbon Dioxide 23 (22-30) mmol/L Anion Gap 11 mmol/L BUN 18 H (7-17) mg/dL Creatinine 0.80 (0.52-1.04) mg/dL Est GFR (CKD-EPI)AfAm 88 (>60 ml/min/1.73 sqM) Est GFR (CKD-EPI)NonAf 76 (>60 ml/min/1.73 sqM) Glucose 150 H (74-99) mg/dL Calcium 8.8 (8.4-10.2) mg/dL Total Bilirubin 0.3 (0.2-1.3) mg/dL AST 36 (14-36) U/L ALT 31 (9-52) U/L Alkaline Phosphatase 112 (38-126) U/L Total Protein 5.6 L (6.3-8.2) g/dL Albumin 3.0 L (3.5-5.0) g/dL Amylase 54 (30-110) U/L Lipase 53 (23-300) U/L Urine Color Light Yellow Urine Appearance Clear (Clear) Urine pH 7.0 (5.0-8.0) Ur Specific [place] 1.007 (1.001-1.035) Urine Protein Negative (Negative) Urine Glucose (UA) Negative (Negative) Urine Ketones Negative (Negative) Urine Blood Negative (Negative) Urine Nitrite Negative (Negative) Urine Bilirubin Negative (Negative) Urine Urobilinogen <2.0 (<2.0) mg/dL Ur Leukocyte Esterase Negative (Negative) Disposition Clinical Impression: Abdominal wall cellulitis Disposition: HOME SELF-CARE Condition: Good Instructions: Cellulitis (ED) Referrals: Tre Denise DO [Primary Care Provider] - 1-2 days
[2017-11-13 19:05] VITALS: BP 163/82; PULSE 83; TEMP 98.4
[2017-11-14] MEDS ORDERED: ENOXAPARIN 40 MG/0.4 ML SYRINGE SQ SCH (09:00)
[2017-11-14] MEDS ORDERED: VANCOMYCIN 1,750 MG in SODIUM CHLORIDE 0.9% 250 ML IVPB SCH (14:00)
== END 2017-11-13 19:28 | disposition home or self-care (01) ==
LOC: EC 12:30 → EEVIPCON 12:30 → UNDOADMIN 17:34 → 5MS5E 17:34 → EC 19:28
DX: L03.311 Cellulitis of abdominal wall (principal); E11.9 Type 2 diabetes mellitus without complications; K21.9 Gastro-esophageal reflux disease without esophagitis; E78.5 Hyperlipidemia, unspecified; I10 Essential (primary) hypertension; M19.90 Unspecified osteoarthritis, unspecified site; I25.2 Old myocardial infarction; F31.9 Bipolar disorder, unspecified; F41.9 Anxiety disorder, unspecified; Z86.718 Personal history of other venous thrombosis and embolism; Z95.5 Presence of coronary angioplasty implant and graft; Z88.1 Allergy status to other antibiotic agents; Z79.4 Long term (current) use of insulin; Z79.84 Long term (current) use of oral hypoglycemic drugs; Z79.891 Long term (current) use of opiate analgesic; Z79.899 Other long term (current) drug therapy
CPT/HCPCS: 99284; 96365; 96366; 96361; 36415; 80053; 82150; 83690; 85025; 81003; 87040; 87086; 87077; 87186; 76705; 74177; J3370; Q9967

== ENCOUNTER 2017-11-23 17:39 | Emergency (ER) | payer MEDICARE ==
[2017-11-23] MEDS ORDERED: SODIUM CHLORIDE 0.9% 1,000 ML IV ONE (18:17)
[2017-11-23 18:26] LABS: Glucose,Whole Blood 98 mg/dL (75-99)
[2017-11-23 18:29] LABS: Basophils % (A) 0 %; Eosinophils # (A) 0.1 k/uL (0-0.7); Eosinophils % (A) 1 %; HCT 27.7 % (34.0-46.0); HGB 9.2 gm/dL (11.4-16.0); Lymphocytes # (A) 1.1 k/uL (1.0-4.8); Lymphocytes % (A) 18 %; MCH 28.6 pg (25.0-35.0); MCHC 33.2 g/dL (31.0-37.0); MCV 86.1 fL (80.0-100.0); Mean Platelet Volume 7.9; Monocytes # (A) 0.5 k/uL (0-1.0); Monocytes % (A) 8 %; Neutrophils # (A) 4.1 k/uL (1.3-7.7); Neutrophils % (A) 69 %; Platelet Count 192 k/uL (150-450); RBC 3.22 m/uL (3.80-5.40); RDW 13.8 % (11.5-15.5)
[2017-11-23 18:32] LABS: Appearance,Urine Clear (Clear); Bilirubin,Urine Negative (Negative); Blood,Urine Negative (Negative); Color,Urine Yellow; Glucose,Urine (UA) Negative (Negative); Ketones,Urine Negative (Negative); Leukocyte Esterase,Urine Negative (Negative); Nitrite,Urine Negative (Negative); PH, Urine 5.5 (5.0-8.0); Protein,Urine Negative (Negative); Urobilinogen,Urine <2.0 mg/dL (<2.0)
[2017-11-23 18:39] LABS: Partial Thromboplastin Time 22.1 sec (22.0-30.0); Prothrombin Time 9.7 sec (9.0-12.0)
[2017-11-23 18:41] LABS: Amphetamine Screen,Urine Not Detected (NotDetected); Cocaine Screen,Urine Not Detected (NotDetected); Opiate Screen,Urine Detected (NotDetected); Phencyclidine Screen,Urine Not Detected (NotDetected); Urn Cannabinoid Scrn Not Detected (NotDetected)
[2017-11-23 18:42] LABS: Barbiturate Screen,Urine Not Detected (NotDetected); Benzodiazepines Screen,Urine Detected (NotDetected); Methadone Screen, Urine Not Detected (NotDetected); Oxycodone Screen, Urine Not Detected (NotDetected); Tricyclic Antidepressant,Urine Not Detected (NotDetected)
[2017-11-23 18:43] LABS: Albumin 3.3 g/dL (3.5-5.0); Calcium 8.5 mg/dL (8.4-10.2); Total Bilirubin 0.3 mg/dL (0.2-1.3)
--- NOTE | 2017-11-23 18:46 | ED ---
General Adult HPI - General Chief complaint: Altered Mental Status Stated complaint: Aletered mental status Time Seen by Provider: 11/23/17 17:59 Source: patient, EMS, RN notes reviewed, old records reviewed Mode of arrival: EMS Limitations: language barrier, altered mental status - History of Present Illness Initial comments: Patient 67-year-old female presented to the emergency room today by EMS, the chief complaint of cough congestion over the last 5 days. Patient does stay at [facility]. They called EMS because have noticed that her behavior has been off for the past 5 days. Patient's been more confused. Patient did have a recent urinary tract infection was on antibiotics. Patient states she's had some bowel pain she admits to some cough. Patient states she believes she may have pneumonia. Patient denies any headache. Patient denies any other complaints or symptoms at this time. Patient does have hallucinations while in the wound. Talking to somebody else at bedside during HPI. When asked more specifically she states not seen any bloody admits to not talk anybody else. Patient denies any recent fever, chills, shortness of breath, chest pain, back pain, abdominal pain, numbness or tingling, constipation or diarrhea, headaches or visual changes, or any other complaints. - Related Data Home Medications Medication Instructions Recorded Confirmed ARIPiprazole [Abilify] 10 mg PO HS 01/21/16 11/23/17 DULoxetine HCL [Cymbalta] 60 mg PO BID 01/21/16 11/23/17 Oxybutynin Chloride [Oxybutynin 10 mg PO BID@0800,2000 01/21/16 11/23/17 Chloride ER] Ranitidine HCl 150 mg PO BID 01/21/16 11/23/17 Loratadine 10 mg PO DAILY 11/13/16 11/23/17 Acetaminophen Tab [Tylenol Tab] 650 mg PO Q6H PRN 11/13/17 11/23/17 Atorvastatin [Lipitor] 40 mg PO HS 11/13/17 11/23/17 Cranberry Fruit Extract [Cranberry] 500 mg PO HS 11/13/17 11/23/17 Ergocalciferol (Vitamin D2) 50,000 unit PO HOPPER 11/13/17 11/23/17 [Vitamin D2] Ertapenem [INVanz] 1 gm IVPB HS 11/13/17 11/23/17 HYDROcodone/APAP 7.5-325MG [[place] 1 tab PO Q4H 11/13/17 11/23/17 7.5-325] HYDROcodone/APAP 7.5-325MG [[place] 1 tab PO Q6H PRN 11/13/17 11/23/17 7.5-325] INSULIN LISPRO (humaLOG) [humaLOG] See Protocol SQ ACHS@07,11,16,20 11/13/17 Metoprolol Tartrate [Lopressor] 12.5 mg PO BID 11/13/17 11/23/17 Nitroglycerin Sl Tabs [Nitrostat] 0.4 mg SUBLINGUAL Q5M PRN 11/13/17 11/23/17 Pioglitazone [Actos] 30 mg PO DAILY 11/13/17 11/23/17 Magnesium Hydroxide [Milk of 2,400 mg PO ONCE PRN 11/23/17 11/23/17 Magnesia] Previous Rx's Medication Instructions Recorded Aspirin 81 mg PO DAILY #30 chew 11/16/16 Sulfamethox-Tmp 800-160Mg [Bactrim 2 tab PO BID #40 tab 11/13/17 DS 800-160 mg] Allergies Allergy/AdvReac Type Severity Reaction Status Date / Time cephalexin monohydrate Allergy Itching. Verified 11/23/17 18:56 [From Keflex] SWELLING Review of Systems ROS Statement: Those systems with pertinent positive or pertinent negative responses have been documented in the HPI. ROS Other: All systems not noted in ROS Statement are negative. Past Medical History Past Medical History: Asthma, Diabetes Mellitus, Deep Vein Thrombosis (DVT), GERD/Reflux, Hyperlipidemia, Hypertension, Myocardial Infarction ([place]), Osteoarthritis (OA) Additional Past Medical History / Comment(s): ABD HERNIA right sided Last Myocardial Infarction Date:: unknown History of Any Multi-Drug Resistant Organisms: VRE Date of last positivie culture/infection: 11/13/17 MDRO Source:: VRE URINE Past Surgical History: Section, Heart Catheterization, Heart Catheterization With Stent, Orthopedic Surgery Additional Past Surgical History / Comment(s): ORIF RIGHT ULNA/RADIUS, left rotator cuff repair, stent x2, picc line inserted for IV ABX 11/09/2017 Past Anesthesia/Blood Transfusion Reactions: No Reported Reaction Date of Last Stent Placement:: 11/2016 Past Psychological History: Anxiety, Bipolar, Depression Smoking Status: Never smoker Past Alcohol Use History: None Reported Past Drug Use History: None Reported - Past Family History Brother(s) Family Medical History: Cancer General Exam - General Exam Comments Initial Comments: General: The patient is awake and alert, in no distress, and does not appear acutely ill. Eye: Pupils are equal, round and reactive to light, extra-ocular movements are intact. No nystagmus. There is normal conjunctiva bilaterally. No signs of icterus. Ears, nose, mouth and throat: There are moist mucous membranes and no oral lesions. Neck: The neck is supple, there is no tenderness or JVD. Cardiovascular: There is a regular rate and rhythm. No murmur, rub or gallop is appreciated. Respiratory: Lungs are clear to auscultation, respirations are non-labored, breath sounds are equal. No wheezes, stridor, rales, or rhonchi. Gastrointestinal: Soft, non-distended, non-tender abdomen without masses or organomegaly noted. There is no rebound or guarding present. No CVA tenderness. Bowel sounds are unremarkable. Musculoskeletal: Normal ROM, no tenderness. Strength 5/5. Sensation intact. Pulses equal bilaterally 2+. Neurological: CN II-XII intact, There are no obvious motor or sensory deficits. Coordination appears grossly intact. Speech is normal. Skin: Skin is warm and dry and no rashes or lesions are noted. Limitations: language barrier, altered mental status Course Vital Signs 11/23/17 11/23/17 17:52 19:15 Temperature 98.8 F Pulse Rate 81 86 Respiratory 20 20 Rate Blood Pressure 103/65 121/62 O2 Sat by Pulse 99 97 Oximetry EKG Findings - EKG Comments: EKG Findings:: EKG performed at 1825: Shows normal sinus rhythm at 87 beats per minute. CO interval 136. QRS 74. QT/QTC 382/459. No acute ST change. Medical Decision Making - Medical Decision Making Case discussed in detail with attending physician Dr. Agarwal. Patient reexamined at this time shows no signs of distress resting comfortably. Patient 's labs been reviewed. Chest x-ray and CT of the head are negative. Results were discussed with the patient. Patient will be discharged back to the [facility]. Advised following up over the next day with family physician. - Lab Data Result diagrams: 11/23/17 18:00 11/23/17 18:00 Lab Results 11/23/17 11/23/17 11/23/17 Range/Units 18:00 18:00 18:00 WBC 6.0 (3.8-10.6) k/uL RBC 3.22 L (3.80-5.40) m/uL Hgb 9.2 L (11.4-16.0) gm/dL Hct 27.7 L (34.0-46.0) % MCV 86.1 (80.0-100.0) fL MCH 28.6 (25.0-35.0) pg MCHC 33.2 (31.0-37.0) g/dL RDW 13.8 (11.5-15.5) % Plt Count 192 (150-450) k/uL Neutrophils % 69 % Lymphocytes % 18 % Monocytes % 8 % Eosinophils % 1 % Basophils % 0 % Neutrophils # 4.1 (1.3-7.7) k/uL Lymphocytes # 1.1 (1.0-4.8) k/uL Monocytes # 0.5 (0-1.0) k/uL Eosinophils # 0.1 (0-0.7) k/uL Basophils # 0.0 (0-0.2) k/uL PT (9.0-12.0) sec INR (<1.2) APTT (22.0-30.0) sec Sodium 132 L (137-145) mmol/L Potassium 5.0 (3.5-5.1) mmol/L Chloride 99 (98-107) mmol/L Carbon Dioxide 16 L (22-30) mmol/L Anion Gap 17 mmol/L BUN 37 H (7-17) mg/dL Creatinine 1.70 H (0.52-1.04) mg/dL Est GFR (CKD-EPI)AfAm 35 (>60 ml/min/1.73 sqM) Est GFR (CKD-EPI)NonAf 31 (>60 ml/min/1.73 sqM) Glucose 85 (74-99) mg/dL POC Glucose (mg/dL) (75-99) mg/dL POC Glu Gastroenterology Nurse ID Calcium 8.5 (8.4-10.2) mg/dL Total Bilirubin 0.3 (0.2-1.3) mg/dL AST 41 H (14-36) U/L ALT 24 (9-52) U/L Alkaline Phosphatase 100 (38-126) U/L Total Creatine Kinase 585 H (30-135) U/L CK-MB (CK-2) 7.3 H* (0.0-2.4) ng/mL CK-MB (CK-2) Rel Index 1.2 Troponin I <0.012 (0.000-0.034) ng/mL Total Protein 6.0 L (6.3-8.2) g/dL Albumin 3.3 L (3.5-5.0) g/dL Urine Color Urine Appearance (Clear) Urine pH (5.0-8.0) Ur Specific [place] (1.001-1.035) Urine Protein (Negative) Urine Glucose (UA) (Negative) Urine Ketones (Negative) Urine Blood (Negative) Urine Nitrite (Negative) Urine Bilirubin (Negative) Urine Urobilinogen (<2.0) mg/dL Ur Leukocyte Esterase (Negative) Urine Opiates Screen (NotDetected) Ur Oxycodone Screen (NotDetected) Urine Methadone Screen (NotDetected) Ur Propoxyphene Screen (NotDetected) Ur Barbiturates Screen (NotDetected) U Tricyclic Antidepress (NotDetected) Ur Phencyclidine Scrn (NotDetected) Ur Amphetamines Screen (NotDetected) U Methamphetamines Scrn (NotDetected) U Benzodiazepines Scrn (NotDetected) Urine Cocaine Screen (NotDetected) U Marijuana (THC) Screen (NotDetected) 11/23/17 11/23/17 11/23/17 Range/Units 18:00 18:00 18:22 WBC (3.8-10.6) k/uL RBC (3.80-5.40) m/uL Hgb (11.4-16.0) gm/dL Hct (34.0-46.0) % MCV (80.0-100.0) fL MCH (25.0-35.0) pg MCHC (31.0-37.0) g/dL RDW (11.5-15.5) % Plt Count (150-450) k/uL Neutrophils % % Lymphocytes % % Monocytes % % Eosinophils % % Basophils % % Neutrophils # (1.3-7.7) k/uL Lymphocytes # (1.0-4.8) k/uL Monocytes # (0-1.0) k/uL Eosinophils # (0-0.7) k/uL Basophils # (0-0.2) k/uL PT 9.7 (9.0-12.0) sec INR 1.0 (<1.2) APTT 22.1 (22.0-30.0) sec Sodium (137-145) mmol/L Potassium (3.5-5.1) mmol/L Chloride (98-107) mmol/L Carbon Dioxide (22-30) mmol/L Anion Gap mmol/L BUN (7-17) mg/dL Creatinine (0.52-1.04) mg/dL Est GFR (CKD-EPI)AfAm (>60 ml/min/1.73 sqM) Est GFR (CKD-EPI)NonAf (>60 ml/min/1.73 sqM) Glucose (74-99) mg/dL POC Glucose (mg/dL) 98 (75-99) mg/dL POC Glu Gastroenterology Nurse ID Jerrica Martines Calcium (8.4-10.2) mg/dL Total Bilirubin (0.2-1.3) mg/dL AST (14-36) U/L ALT (9-52) U/L Alkaline Phosphatase (38-126) U/L Total Creatine Kinase (30-135) U/L CK-MB (CK-2) (0.0-2.4) ng/mL CK-MB (CK-2) Rel Index Troponin I (0.000-0.034) ng/mL Total Protein (6.3-8.2) g/dL Albumin (3.5-5.0) g/dL Urine Color Yellow Urine Appearance Clear (Clear) Urine pH 5.5 (5.0-8.0) Ur Specific [place] 1.010 (1.001-1.035) Urine Protein Negative (Negative) Urine Glucose (UA) Negative (Negative) Urine Ketones Negative (Negative) Urine Blood Negative (Negative) Urine Nitrite Negative (Negative) Urine Bilirubin Negative (Negative) Urine Urobilinogen <2.0 (<2.0) mg/dL Ur Leukocyte Esterase Negative (Negative) Urine Opiates Screen Detected H (NotDetected) Ur Oxycodone Screen Not Detected (NotDetected) Urine Methadone Screen Not Detected (NotDetected) Ur Propoxyphene Screen Not Detected (NotDetected) Ur Barbiturates Screen Not Detected (NotDetected) U Tricyclic Antidepress Not Detected (NotDetected) Ur Phencyclidine Scrn Not Detected (NotDetected) Ur Amphetamines Screen Not Detected (NotDetected) U Methamphetamines Scrn Not Detected (NotDetected) U Benzodiazepines Scrn Detected H (NotDetected) Urine Cocaine Screen Not Detected (NotDetected) U Marijuana (THC) Screen Not Detected (NotDetected) Disposition Clinical Impression: URI (upper respiratory infection) Disposition: HOME SELF-CARE Condition: Good Instructions: Upper Respiratory Infection (ED) Additional Instructions: Results that physician over the next 2 days. Her strength emergency room if any symptoms increase or worsen or for new concerns. Is patient prescribed a controlled substance at discharge?: No Referrals: Tre Denise DO [Primary Care Provider] - 1-2 days Time of Disposition: 19:54
[2017-11-23 18:53] LABS: Creatine Kinase 585 U/L (30-135)
[2017-11-23 19:06] LABS: Troponin I <0.012 ng/mL (0.000-0.034)
[2017-11-23 19:10] LABS: Creatine Kinase MB 7.3 ng/mL (0.0-2.4)
--- NOTE | 2017-11-23 19:25 | CT ---
EXAMINATION TYPE: CT brain wo con DATE OF EXAM: 11/23/2017 COMPARISON: NONE HISTORY: Altered mental status. CT DLP: 1607.[address] of the brain was performed. Examination is limited by patient motion and resultant art ifact. The ventricles, basal cisterns and sulci overlying the cerebral convexities demonstrate mild enlargem ent. There is no evidence for intracranial hemorrhage or sulcal effacement. There is decreased attenuation about the periventricular white matter and deep white matter of both c erebral hemispheres, compatible with chronic small vessel ischemia. Differential diagnosis does inclu de demyelination. No mass effects are seen.No midline shift. Osseous calvarium is intact. If symptoms persist consider MRI. IMPRESSION: 1. Age related atrophic and chronic small vessel ischemic change without acute intracranial process s een at this time.
--- NOTE | 2017-11-23 19:26 | XR ---
EXAMINATION TYPE: XR chest 2V DATE OF EXAM: 11/23/2017 COMPARISON: 11/13/2016 HISTORY: Shortness of breath TECHNIQUE: Frontal and lateral views of the chest are obtained. FINDINGS: Scattered senescent parenchymal changes noted. Hyperinflation compatible with COPD. No evidence for infiltrate. No evidence for atelectasis. Heart size is stable. Mediastinal structures are stable and grossly unremarkable. No evidence for hilar prominence. Degenerative changes dorsal spine. IMPRESSION: 1. No evidence for acute pulmonary disease.
[2017-11-23 20:26] VITALS: BP 110/65; PULSE 80; RESP 18; TEMP 97
== END 2017-11-23 20:27 | disposition home or self-care (01) ==
LOC: EC 17:39
DX: J06.9 Acute upper respiratory infection, unspecified (principal); R41.82 Altered mental status, unspecified; R41.0 Disorientation, unspecified; N39.0 Urinary tract infection, site not specified; R44.1 Visual hallucinations; E78.5 Hyperlipidemia, unspecified; I10 Essential (primary) hypertension; E11.9 Type 2 diabetes mellitus without complications; K21.9 Gastro-esophageal reflux disease without esophagitis; F31.9 Bipolar disorder, unspecified; F41.9 Anxiety disorder, unspecified; I25.2 Old myocardial infarction; Z79.4 Long term (current) use of insulin; Z79.891 Long term (current) use of opiate analgesic; Z79.899 Other long term (current) drug therapy; Z88.1 Allergy status to other antibiotic agents
CPT/HCPCS: 36415; 70450; 71046; 80053; 80306; 81003; 82550; 82553; 84484; 85025; 85610; 85730; 87086; 93005; 96360; 99285

== ENCOUNTER 2017-11-24 03:38 | Inpatient (IN) | payer MEDICARE ==
[2017-11-24] MEDS ORDERED: LORazepam 2 MG/ML INJ ONE (05:09)
[2017-11-24] MEDS ORDERED: ZIPRASIDONE 20 MG VIAL IM ONE (05:09)
--- NOTE | 2017-11-24 07:11 | ED ---
Psych HPI - General Source: patient - History of Present Illness MD Complaint: other -: days(s) Associated Psychiatric Symptoms: auditory hallucinations, visual hallucinations , delusions History of same: Yes Quality: getting worse Improves With: none Worsens With: none <Joao St - Last Filed: 11/24/17 07:42> <Hood Mckeon - Last Filed: 11/24/17 09:15> - General Stated Complaint: Confusion Time Seen by Provider: 11/24/17 03:45 - History of Present Illness Initial Comments: This patient is a 67-year-old woman with history of previous psychiatric illness , [facility] the [facility] to have [facility] evaluation. The patient was seen here yesterday for similar symptoms, and had gone back to the [facility]. They report that the patient has been very disruptive to the living conditions there. She is reportedly acting out, appearing to respond to hallucinations, and interfering with staff/other residents. The patient is not able to give any additional history. (Joao St) - Related Data Home Medications Medication Instructions Recorded Confirmed ARIPiprazole [Abilify] 10 mg PO HS 01/21/16 11/23/17 DULoxetine HCL [Cymbalta] 60 mg PO BID 01/21/16 11/23/17 Oxybutynin Chloride [Oxybutynin 10 mg PO BID@0800,2000 01/21/16 11/23/17 Chloride ER] Ranitidine HCl 150 mg PO BID 01/21/16 11/23/17 Loratadine 10 mg PO DAILY 11/13/16 11/23/17 Acetaminophen Tab [Tylenol Tab] 650 mg PO Q6H PRN 11/13/17 11/23/17 Atorvastatin [Lipitor] 40 mg PO HS 11/13/17 11/23/17 Cranberry Fruit Extract [Cranberry] 500 mg PO HS 11/13/17 11/23/17 Ergocalciferol (Vitamin D2) 50,000 unit PO HOPPER 11/13/17 11/23/17 [Vitamin D2] Ertapenem [INVanz] 1 gm IVPB HS 11/13/17 11/23/17 HYDROcodone/APAP 7.5-325MG [[place] 1 tab PO Q4H 11/13/17 11/23/17 7.5-325] HYDROcodone/APAP 7.5-325MG [[place] 1 tab PO Q6H PRN 11/13/17 11/23/17 7.5-325] INSULIN LISPRO (humaLOG) [humaLOG] See Protocol SQ ACHS@07,11,16,20 11/13/17 Metoprolol Tartrate [Lopressor] 12.5 mg PO BID 11/13/17 11/23/17 Nitroglycerin Sl Tabs [Nitrostat] 0.4 mg SUBLINGUAL Q5M PRN 11/13/17 11/23/17 Pioglitazone [Actos] 30 mg PO DAILY 11/13/17 11/23/17 Magnesium Hydroxide [Milk of 2,400 mg PO ONCE PRN 11/23/17 11/23/17 Magnesia] Previous Rx's Medication Instructions Recorded Aspirin 81 mg PO DAILY #30 chew 11/16/16 Sulfamethox-Tmp 800-160Mg [Bactrim 2 tab PO BID #40 tab 11/13/17 DS 800-160 mg] Allergies Allergy/AdvReac Type Severity Reaction Status Date / Time cephalexin monohydrate Allergy Itching. Verified 11/23/17 18:56 [From Keflex] SWELLING Review of Systems ROS Other: All systems not noted in ROS Statement are negative. Limitations: ROS unobtainable due to patients medical condition Constitutional: Denies: fever Respiratory: Denies: dyspnea Cardiovascular: Denies: chest pain Gastrointestinal: Denies: abdominal pain, vomiting Musculoskeletal: Denies: back pain Neurological: Denies: headache <Joao St - Last Filed: 11/24/17 07:42> ROS Other: All systems not noted in ROS Statement are negative. <Hood Mckeon - Last Filed: 11/24/17 09:15> ROS Statement: Those systems with pertinent positive or pertinent negative responses have been documented in the HPI. Past Medical History Past Medical History: Asthma, Diabetes Mellitus, Deep Vein Thrombosis (DVT), GERD/Reflux, Hyperlipidemia, Hypertension, Myocardial Infarction ([place]), Osteoarthritis (OA) Additional Past Medical History / Comment(s): ABD HERNIA right sided Last Myocardial Infarction Date:: unknown History of Any Multi-Drug Resistant Organisms: VRE Date of last positivie culture/infection: 11/13/17 MDRO Source:: VRE URINE Past Surgical History: Section, Heart Catheterization, Heart Catheterization With Stent, Orthopedic Surgery Additional Past Surgical History / Comment(s): ORIF RIGHT ULNA/RADIUS, left rotator cuff repair, stent x2, picc line inserted for IV ABX 11/09/2017 Past Anesthesia/Blood Transfusion Reactions: No Reported Reaction Date of Last Stent Placement:: 11/2016 Past Psychological History: Anxiety, Bipolar, Depression Smoking Status: Never smoker Past Alcohol Use History: None Reported Past Drug Use History: None Reported - Past Family History Brother(s) Family Medical History: Cancer <MacielJoao - Last Filed: 11/24/17 07:42> General Exam General appearance: alert, obese Head exam: Present: atraumatic, normocephalic Eye exam: Present: normal appearance, PERRL, EOMI. Absent: scleral icterus, conjunctival injection ENT exam: Present: mucous membranes dry Neck exam: Present: full ROM. Absent: tenderness, meningismus Respiratory exam: Present: normal lung sounds bilaterally. Absent: respiratory distress, wheezes, rales, rhonchi, stridor Cardiovascular Exam: Present: regular rate, normal rhythm, normal heart sounds. Absent: systolic murmur, diastolic murmur, rubs, gallop GI/Abdominal exam: Present: soft. Absent: distended, tenderness, guarding Extremities exam: Present: normal inspection, normal capillary refill. Absent: pedal edema, calf tenderness Back exam: Present: normal inspection. Absent: vertebral tenderness Neurological exam: Present: alert. Absent: oriented X3, motor sensory deficit Skin exam: Present: warm, dry, intact, normal color. Absent: rash <Joao St - Last Filed: 11/24/17 07:42> Disposition <Joao St - Last Filed: 11/24/17 07:42> Is patient prescribed a controlled substance at discharge?: No <Hood Mckeon - Last Filed: 11/24/17 09:15> Clinical Impression: Altered mental status Disposition: ADMITTED IP TO THIS [facility] Condition: Fair Referrals: Tre Denise DO [Primary Care Provider] - 1-2 days
[2017-11-24] MEDS ORDERED: SODIUM CHLORIDE 0.9% 500 ML IV STA (07:41)
[2017-11-24] MEDS ORDERED: MORPHINE SULFATE 4MG/4ML SYRG ONE (07:57)
[2017-11-24] MEDS ORDERED: NALOXONE 0.4 MG/ML 1 ML VIAL IV PRN ×2 (09:15→16:09)
[2017-11-24] MEDS ORDERED: ALPRAZolam 0.25 MG TAB PO PRN (09:15)
[2017-11-24] MEDS ORDERED: MAGNESIUM HYDROXIDE 2,400 MG/10 ML CUP PO PRN (09:19)
[2017-11-24 09:57] LABS: Albumin 3.5 g/dL (3.5-5.0); Calcium 8.7 mg/dL (8.4-10.2); Potassium 5.2 mmol/L (3.5-5.1); Total Bilirubin 0.4 mg/dL (0.2-1.3); Total Protein 6.3 g/dL (6.3-8.2)
--- NOTE | 2017-11-24 10:00 | CT ---
EXAMINATION TYPE: CT brain wo con DATE OF EXAM: 11/24/2017 COMPARISON: 11/23/2017 HISTORY: 67-year-old female with pain, altered mental status TECHNIQUE: Examination was done in axial plane without intravenous contrast. Coronal and sagittal r econstructions performed. The patient was strapped down for the CT. There is persistent movement and the patient was rescanned. CT DLP: 2389 mGycm Automated exposure control for dose reduction was used. FINDINGS: There is no evidence of acute intracranial hemorrhage, acute ischemic changes, mass, mass-effect, or extra-axial fluid collection. There is no effacement of cerebral sulci or basal subarachnoid cister ns. There is no hydrocephalus. There is no midline shift. [place]-white matter distinction is preserv ed. Mild generalized supratentorial volume loss especially with bifrontal atrophy. Moderate focal mucosal thickening posterior right maxillary sinus. Redemonstrated is air in the anter ior right globe. Mastoid air cells well pneumatized. IMPRESSION: Stable exam with mild atrophy. No acute intracranial abnormality seen. Stable air bubble in the right globe.
--- NOTE | 2017-11-24 10:02 | XR ---
EXAMINATION TYPE: XR chest 1V DATE OF EXAM: 11/24/2017 COMPARISON: 11/23/2017 HISTORY: 67-year-old female with pain, confusion, altered mental status TECHNIQUE: Single frontal view of the chest is obtained. FINDINGS: The heart is mildly enlarged. Diffuse interstitial prominence and hyperinflation. Left base underpene trated and not well assessed. Limitations due to large patient body habitus. The remainder of the fallon gs show no definite consolidation. No significant pleural effusion. IMPRESSION: 1. Mild cardiomegaly. 2. Correlate to exclude mild pulmonary vascular congestion. There are limitations due to portable ab hnique and patient's large body habitus.
[2017-11-24 10:06] LABS: Basophils % (A) 1 %; Eosinophils # (A) 0.2 k/uL (0-0.7); Eosinophils % (A) 2 %; HCT 29.6 % (34.0-46.0); HGB 9.5 gm/dL (11.4-16.0); Lymphocytes # (A) 1.3 k/uL (1.0-4.8); Lymphocytes % (A) 17 %; MCH 28.2 pg (25.0-35.0); MCHC 32.3 g/dL (31.0-37.0); MCV 87.3 fL (80.0-100.0); Mean Platelet Volume 9.2; Monocytes # (A) 0.9 k/uL (0-1.0); Monocytes % (A) 12 %; Neutrophils % (A) 64 %; Platelet Count 236 k/uL (150-450); RBC 3.39 m/uL (3.80-5.40); RDW 14.2 % (11.5-15.5); WBC 7.8 k/uL (3.8-10.6)
[2017-11-24] MEDS ORDERED: diphenhydrAMINE 50 MG/ML 1 ML VIAL IVP STA (11:00)
[2017-11-24] MEDS ORDERED: ONDANSETRON 4 MG/2 ML VIAL IVP PRN (16:09)
[2017-11-24] MEDS ORDERED: CALCIUM CARBONATE 500 MG CHEWABLE PO PRN (16:09)
[2017-11-24] MEDS ORDERED: ACETAMINOPHEN TAB 325 MG TAB PO PRN (16:09)
[2017-11-24] MEDS ORDERED: MELATONIN 3 MG TABLET PO PRN (16:09)
[2017-11-24] MEDS ORDERED: SODIUM CHLORIDE 0.9% 1,000 ML IV SCH (16:15)
[2017-11-24 16:18] LABS: Appearance,Urine Clear (Clear); Bilirubin,Urine Negative (Negative); Blood,Urine Negative (Negative); Color,Urine Yellow; Glucose,Urine (UA) Negative (Negative); Ketones,Urine Negative (Negative); Leukocyte Esterase,Urine Negative (Negative); Nitrite,Urine Negative (Negative); PH, Urine 5.5 (5.0-8.0); Protein,Urine Trace (Negative); Specific Gravity,Urine 1.014 (1.001-1.035); Urobilinogen,Urine <2.0 mg/dL (<2.0)
[2017-11-24] MEDS ORDERED: HALOPERIDOL LACTATE 5 MG/ML 1 ML VIAL IM ONE (16:25)
[2017-11-24] MEDS ORDERED: VANCOMYCIN IV PER PHARMACY 1 EACH MISC MISCELLANE PRN (17:12)
[2017-11-24] MEDS ORDERED: LORazepam 2 MG/ML INJ IV PRN (17:17)
[2017-11-24 17:33] LABS: Glucose,Whole Blood 179 mg/dL (75-99)
[2017-11-24 18:11] LABS: ABG Base Excess -11.3 mmol/L; ABG HCO3 14 mmol/L (21-25); ABG Oxygen Saturation 98.3 % (94-97); ABG PCO2 25 mmHg (35-45); ABG PH 7.37 (7.35-7.45); ABG PO2 113 mmHg (83-108); ABG TCO2 15 mmol/L (19-24)
[2017-11-24] MEDS ORDERED: HALOPERIDOL LACTATE 5 MG/ML 1 ML VIAL IM PRN ×2 (18:33→19:09)
[2017-11-24] MEDS: INSULIN ASPART 100 UNIT/ML 1 ML 10 ML VIAL SQ SCH ×2 (18:36→22:11)
[2017-11-24 18:54] LABS: Glucose,Whole Blood 195 mg/dL (75-99)
--- NOTE | 2017-11-24 19:03 | HP ---
HISTORY AND PHYSICAL DATE OF ADMISSION: November 24, 2017. PRESENT COMPLAINT: Altered mental status. HISTORY OF PRESENTING COMPLAINT: This 67-year-old patient who follows with Dr. Denise at [facility]. The patient has a legal guardian, Radha Guadarrama. The patient's chronic stable medical conditions include nonobstructive coronary artery disease, osteoarthritis of T12-L1, diabetes, GERD, hypertension, chronic kidney stage 4, urinary continence per the transfer sheet. The patient is brought in for altered mental status changes. The patient is noted to have elevated BUN and creatinine 34/1.7 in the ER, elevated from a baseline. I was called from the floor that the patient had a fever of 101.4, heart rate of 132 with a blood pressure of 150/75. The patient was agitated, moving about, unable to be kept in place and I was called to give a order of 5 mg of Haldol that did not really control the patient control. Psychiatry was consulted and called from the ER. Empirically, I ordered a dose of Levaquin and vancomycin. The patient also has a sitter and the patient is thrashing about, pulling at her restraints. Given the septic picture and change in status, I decided move the patient to the ICU for closer monitoring and critical care management. REVIEW OF SYSTEMS: Cannot be obtained. PAST MEDICAL HISTORY: Coronary artery disease, nonobstructive, diabetes mellitus type 2, GERD, hypertension, hyperlipidemia, severe osteoarthritis of T12-L1, chronic kidney stage 4, lobectomy for lung cancer, abdominal wall hernia, gait dysfunction with falls, urinary incontinence. PAST SURGICAL HISTORY: , cardiac catheterization with stent, lung lobectomy, ORIF of the right ulnar radius, left rotator cuff repair, healed surgery, colonoscopy with polypectomy, angioplasty with stent x2. Psych: History of major depression with psychotic features. SOCIAL HISTORY: Resident of [facility]. Patient uses a walker to walk with a walker. Legal guardian is Radha Guadarrama. The patient did have a past history of alcohol dependence and marijuana use. FAMILY HISTORY: Of cancer, type unknown. HOME MEDICATIONS: 1. Bactrim DS 1 to 2 tablets p.o. b.i.d. 2. Zantac 150 mg p.o. b.i.d. 3. Actos 30 mg p.o. daily. 4. Oxybutynin 10 mg b.i.d. 5. Zyprexa 10 mg q.h.s. 6. Lopressor 12.5 p.o. b.i.d. 7. Milk of magnesia 2400 mg p.o. 8. Claritin 10 mg a day. 9. [place] 7.5 one tab q.6 p.r.n. 10.Vitamin D2 50,000 units Wednesday. 11.Cymbalta 60 mg b.i.d. 12.Lipitor 40 mg q.h.s. 13.Aspirin 81 mg p.o. daily. 14.Tylenol 650 mg q.6h p.r.n. 15.Abilify 10 mg q.h.s. ALLERGIES: KEFLEX. PHYSICAL EXAMINATION: T-max 101.4, pulse up to 132, respirations 36, blood pressure 120/75, pulse ox 95% on room air. General appearance: Well built, BMI 51.5, very agitated, thrashing about. Eyes: Pupils are equal. Conjunctivae normal. HEENT: External appearance of nose and ears normal. Oral cavity difficult to assess. Neck JVD unable to assess. Mass not palpable. Respiratory effort increased. LUNGS: Diminished breath sounds. Cardiovascular: 1st and 2nd sounds normal. No edema. ABDOMEN: Distended, soft. Liver and spleen not palpable. Bowel sounds are present. Lymphatics: No lymph palpable in the neck and axilla. Psychiatry: Patient extremely agitated, not able to fully follow any commands, very agitated. Neurological: Pupils equal. No facial asymmetry. Thrashing about. Moving all 4 limbs. INVESTIGATIONS: White count 7.8, hemoglobin 9.5, potassium 5.2, BUN 34, creatinine 1.72. Influenza A and B negative. CT scan of the brain nil acute. Chest x-ray limited study. ASSESSMENT: 1. The patient presents with acute change of mental status from the ECF with acute agitation and also febrile and tachycardiac, though normal white count. Differential of course includes sepsis, for which empirically I put the patient on Levaquin and vancomycin. Also, less likely but possible the differential is neuroleptics malignant syndrome and will hold off patient's Zyprexa and Abilify until further evaluation by Psychiatry. 2. Acute severe delirium. 3. Morbid obesity BMI 51.5. 4. Major depression with history of psychotic features. 5. Hyperlipidemia. 6. Chronic urinary stress incontinence. 7. Diabetes mellitus type 2 on oral hypoglycemics. 8. Patient has a legal guardian, Radha Guadarrama. 9. Acute renal failure could be prerenal. Need to rule out rhabdomyolysis. 10.Acute metabolic acidosis, likely from renal failure. PLAN: The patient empirically put on Levaquin and vancomycin. The patient for critical care management moved to the ICU. Consultation to Critical Care, Infectious Disease and psychiatry. Patient also been put on IV fluids and also give bicarb with each L fluid. Including IV fluids, we will add sodium bicarb to each L of fluid. Copy to Dr. Denise. MMATULL / IJN: [id number] /
--- NOTE | 2017-11-24 19:10 | P.CNPUL ---
History of Present Illness Consult date: 11/24/17 History of present illness: 67-year-old female patient known history of depression with psychotic features presented to the emergency department with altered mentation. The patient is a half-way resident. Apparently she was having altered mentation, agitation, restlessness, disruptive behavior to other residents at the half-way. Apparently she was yelling, acting out, hallucinating, trying to reach things in her speech was very much mumbled and she was dysarthric. His bite all this, the patient was moving all 4 extremities without any limitation. Stiffness. She was having episodes of fever and some sweating and she was slightly tachycardic at a time of admission. No information can be obtained from this patient. No other information is available. Reviewing her medication, the patient has been maintained on a combination of Abilify, Cymbalta and Zyprexa. Her psychiatric history is not known to me at length however she has been admitted in the past year the hospital and she has been seen by psychiatry who supported the history of depression with psychotic features. I do not appreciate any neck stiffness. No reported headache. No reported seizure activity. No skin rashes. No leukocytosis. She does having his labored breathing at the Negative blood gas show no acute abnormality with a pH of 7.37 with a pCO2 of 25 and pO2 of 113 and this was essentially done on room air nontender the patient is not utilizing her nasal cannula and she keeps and pulling it out. Lactic acid level is at 1.2. No leukocytosis. Neurologically screen is negative. Urinalysis is also negative. Abdomen is soft. No body stiffness. Her CPK is mildly elevated at 1250. The glucose is 195. Her creatinine is at 1.7 and she does have a mild component of anion gap metabolic acidosis with anion gap of 18 and a bicarb level of 14. Thus far, the patient has been given 5 mg of Haldol and a total of 2 mg of Ativan without significant response. She remains quite restless and agitated in bed. She is in a 2 point restraints and she'll be moved to the intensive care unit. I made recommendations to give additional 5 mg of Haldol to control her agitation. She was also placed on a bicarb infusion at the rate of 100 mL an hour. Review of Systems ROS unobtainable: due to mental status Past Medical History Past Medical History: Coronary Artery Disease (CAD), Cancer, Chest Pain / Angina , Diabetes Mellitus, Deep Vein Thrombosis (DVT), GERD/Reflux, Hyperlipidemia, Hypertension, Myocardial Infarction (UT), Osteoarthritis (OA) Additional Past Medical History / Comment(s): Major depression with psychotic features, morbid obesity, Chronic kidney disease stage IV, COPD/chronic bronchitis, coronary artery disease with previous history of myocardial infarction back in 2008, lobectomy for lung cancer, abdominal wall hernia R side , generalized weakness, gait dysfunction, falls, DJD T12 and L1, urine incontinence at times. The patient is a half-way resident. Last Myocardial Infarction Date:: 01/20/09 History of Any Multi-Drug Resistant Organisms: VRE Date of last positivie culture/infection: 11/13/17 MDRO Source:: VRE URINE Past Surgical History: Section, Heart Catheterization, Heart Catheterization With Stent, Orthopedic Surgery Additional Past Surgical History / Comment(s): Lung lobectomy, ORIF RIGHT ULNA/ RADIUS, left rotator cuff repair, cataract removals, heel surgery r/t infection (laterality unknown), colonoscopies/ benign polypectomy, PCI/ stent x2, picc line inserted for IV ABX 11/09/2017 Past Anesthesia/Blood Transfusion Reactions: No Reported Reaction Date of Last Stent Placement:: 11/2016 Past Psychological History: Anxiety, Bipolar, Depression Smoking Status: Never smoker Past Alcohol Use History: Unable to Obtain Past Drug Use History: Marijuana - Past Family History Brother(s) Family Medical History: Cancer Medications and Allergies Home Medications Medication Instructions Recorded Confirmed Type ARIPiprazole [Abilify] 10 mg PO HS 01/21/16 11/24/17 History DULoxetine HCL [Cymbalta] 60 mg PO BID 01/21/16 11/24/17 History Oxybutynin Chloride [Oxybutynin 10 mg PO BID@0800,2000 01/21/16 11/24/17 History Chloride ER] Ranitidine HCl 150 mg PO BID 01/21/16 11/24/17 History Loratadine 10 mg PO DAILY 11/13/16 11/24/17 History Aspirin 81 mg PO DAILY #30 chew 11/16/16 11/24/17 Rx Acetaminophen Tab [Tylenol Tab] 650 mg PO Q6H PRN 11/13/17 11/24/17 History Atorvastatin [Lipitor] 40 mg PO HS 11/13/17 11/24/17 History Cranberry Fruit Extract [Cranberry] 500 mg PO HS 11/13/17 11/24/17 History Ergocalciferol (Vitamin D2) 50,000 unit PO HOPPER 11/13/17 11/24/17 History [Vitamin D2] HYDROcodone/APAP 7.5-325MG [[place] 1 tab PO Q6H PRN 11/13/17 11/24/17 History 7.5-325] INSULIN LISPRO (humaLOG) [humaLOG] See Protocol SQ ACHS@07,,16,20 11/13/17 History Metoprolol Tartrate [Lopressor] 12.5 mg PO BID 11/13/17 11/24/17 History Nitroglycerin Sl Tabs [Nitrostat] 0.4 mg SUBLINGUAL Q5M PRN 11/13/17 11/24/17 History Pioglitazone [Actos] 30 mg PO DAILY 11/13/17 11/24/17 History Sulfamethox-Tmp 800-160Mg [Bactrim 2 tab PO BID #40 tab 11/13/17 11/24/17 Rx DS 800-160 mg] Magnesium Hydroxide [Milk of 2,400 mg PO ONCE PRN 11/23/17 11/24/17 History Magnesia] OLANZapine [ZyPREXA] 10 mg PO HS@199911/24/17 11/24/17 History Allergies Allergy/AdvReac Type Severity Reaction Status Date / Time cephalexin monohydrate Allergy Itching. Verified 11/24/17 09:35 [From Keflex] SWELLING Physical Exam Vitals: Vital Signs Temp Pulse Pulse Resp BP BP Pulse Ox 11/24/17 17:45 100.8 F H 11/24/17 16:51 100.7 F H 132 H 32 H 195/71 91 L 11/24/17 16:45 130 H 38 H 11/24/17 16:34 101.4 F H 77 36 H 150/75 95 11/24/17 15:26 100.2 F H 118 H 22 139/78 97 11/24/17 13:25 95 20 135/80 96 11/24/17 13:11 120 H 20 113/65 96 11/24/17 11:57 99.5 F 126 H 22 126/74 96 Intake and Output 11/24/17 11/24/17 11/24/17 06:59 14:59 22:59 Output Total 600 Balance -600 Output: Urine 600 Other: # Bowel Movements 0 Weight 119.54 kg The patient is quite restless and agitated even in bed. She is on 2 point restraints. At times she yells then she cries and she seems to be very emotionally labile. She tries to reach stuff. She speaks on her own and her speech is rather garbled. She is moving all 4 extremities without any limitation. She is a bit diaphoretic and sweaty.Head exam was generally normal. There was no scleral icterus or corneal arcus. Mucous membranes were moist. Neck is supple and there is no stiffness.Neck was supple and without jugular venous distension, thyromegaly, or carotid bruits. Carotids were easily palpable bilaterally. There was no adenopathy. The patient has significant crowding of the posterior oropharynx. Pupils are equal and reactive to light. Somewhat irregular left pupil.Lungs were clear to auscultation and percussion, and with normal diaphragmatic excursion. No wheezes or rales were noted. Cardiac exam revealed the PMI to be normally situated and sized. The rhythm was regular and no extrasystoles were noted during several minutes of auscultation. The first and second heart sounds were normal and physiologic splitting of the second heart sound was noted. There were no murmurs, rubs, clicks, or gallops.Abdominal exam revealed normal bowel sounds. The abdomen was soft, non- tender, and without masses, organomegaly, or appreciable enlargement of the abdominal aorta. The patient is obese and the patient has an abdominal wall hernia which is easily reducible at this point.Examination of the extremities revealed easily palpable radial, femoral and pedal pulses. There was no cyanosis , clubbing or edema. Neurologically as mentioned the patient has no focal neurological deficit. She is quite agitated and confused and has some psychotic features knowing that she has been reaching stuff in her speech is obviously dysarthric and garbled. Reflexes are +1 symmetric in all 4 extremities. No Babinski. No clonus. Results - Laboratory Findings CBC and BMP: 11/24/17 08:00 11/24/17 08:00 ABG ABG pH 7.37 (7.35-7.45) 11/24/17 18:03 ABG pCO2 25 mmHg (35-45) L 11/24/17 18:03 ABG pO2 113 mmHg (83-108) H 11/24/17 18:03 ABG O2 Saturation 98.3 % (94-97) H 11/24/17 18:03 Abnormal lab findings: Abnormal Labs 11/24/17 11/24/17 11/24/17 08:00 08:00 08:00 RBC 3.39 L Hgb 9.5 L Hct 29.6 L ABG pCO2 ABG pO2 ABG HCO3 ABG Total CO2 ABG O2 Saturation Sodium 136 L Potassium 5.2 H Carbon Dioxide 14 L BUN 34 H Creatinine 1.72 H Glucose 159 H POC Glucose (mg/dL) AST 62 H Alkaline Phosphatase 136 H Creatine Kinase 1250 H Lipase 17 L Urine Protein Ur Random Sodium 11/24/17 11/24/17 11/24/17 16:00 16:00 17:13 RBC Hgb Hct ABG pCO2 ABG pO2 ABG HCO3 ABG Total CO2 ABG O2 Saturation Sodium Potassium Carbon Dioxide BUN Creatinine Glucose POC Glucose (mg/dL) 179 H AST Alkaline Phosphatase Creatine Kinase Lipase Urine Protein Trace H Ur Random Sodium 23 L 11/24/17 11/24/17 18:03 18:53 RBC Hgb Hct ABG pCO2 25 L ABG pO2 113 H ABG HCO3 14 L ABG Total CO2 15 L ABG O2 Saturation 98.3 H Sodium Potassium Carbon Dioxide BUN Creatinine Glucose POC Glucose (mg/dL) 195 H AST Alkaline Phosphatase Creatine Kinase Lipase Urine Protein Ur Random Sodium - Diagnostic Findings Chest x-ray: image reviewed Assessment and Plan Plan: Assessment 1 acute altered mentation with psychotic features. Rule out acute psychosis. Rule out acute serotonergic syndrome. Doubt neuroleptic malignant syndrome. Doubt meningoencephalitis. Doubt underlying septic component. The patient was moved to the intensive care unit for further monitoring. We'll control the agitation with Haldol. We'll hydrate the patient. We will consult neurology and psychiatric 2 major depression with psychotic features 3 morbid obesity 4 COPD 5 remote history of lung cancer with a previous lobectomy 6 coronary artery disease with previous UT and previous cardiac intervention and stenting 7 diabetes mellitus 8 remote history of DVT 9 hyperlipidemia 10 hypertension 11 abdominal wall hernia 12 chronic renal failure and the patient apparently has a stage IV kidney disease 13 mild anion gap metabolic acidosis 14 mild rhabdomyolysis 15 chronic normocytic anemia Plan We'll the patient to the intensive care unit. Hydrate this patient with bicarb infusion the rate of 150 mL an hour. Monitor fever pattern and provide Tylenol for temperature above 100F. Consult neurology. Consult psychiatric. Give additional Haldol 5 mg IV and monitor agitation. We'll continue Haldol somewhere between 2-5 mg every 2 hours to control her agitation and psychosis. Monitor CPK levels. CAT scan of the brain is been negative. May need a further workup including lumbar puncture if continues to have altered mentation. Keep the patient nothing by mouth for now. Give empiric antibiotic coverage with a combination of Levaquin and vancomycin. Hold the rest of the oral medications including the Cymbalta and Abilify and Zyprexa for now We'll continue to follow. Time with Patient: Greater than 30
[2017-11-24] MEDS: LEVOFLOXACIN 750MG-D5W PMX 750 MG in DEXTROSE/WATER 1 150ML.BAG IVPB SCH (19:45)
[2017-11-24] MEDS: DEXTROSE 5%-0.45% NACL 1,000 ML with SODIUM BICARB (1 MEQ/ML) 50 ML IV SCH ×2 (20:04)
[2017-11-24] MEDS ORDERED: FAMOTIDINE 20 MG TAB PO SCH (21:00)
[2017-11-24] MEDS ORDERED: ARIPiprazole 10 MG TAB PO SCH (21:00)
[2017-11-24] MEDS ORDERED: VANCOMYCIN 1,750 MG in SODIUM CHLORIDE 0.9% 250 ML IVPB ONE (21:00)
[2017-11-24] MEDS: OXYBUTYNIN 10 MG TAB.ER.24 PO SCH (21:54)
[2017-11-24] MEDS: ATORVASTATIN 40 MG TAB PO SCH (21:54)
[2017-11-24] MEDS: FAMOTIDINE 20 MG TAB PO SCH (21:54)
[2017-11-24] MEDS: DULoxetine HCL 60 MG CAPSULE.DR PO SCH (21:54)
[2017-11-24] MEDS: METOPROLOL TARTRATE 12.5 MG TAB PO SCH (21:55)
[2017-11-24 22:06] LABS: Glucose,Whole Blood 237 mg/dL (75-99)
[2017-11-24 23:02] LABS: ABG Base Excess -10.4 mmol/L; ABG HCO3 16 mmol/L (21-25); ABG Oxygen Saturation 97.7 % (94-97); ABG PCO2 33 mmHg (35-45); ABG PO2 107 mmHg (83-108); ABG TCO2 17 mmol/L (19-24)
[2017-11-25] MEDS: DEXTROSE 5%-0.45% NACL 1,000 ML with SODIUM BICARB (1 MEQ/ML) 50 ML IV SCH ×10 (02:53→20:45)
[2017-11-25 03:20] LABS: Hemoglobin A1C 6.8 % (4.0-6.0)
[2017-11-25 05:14] LABS: HCT 26.1 % (34.0-46.0); HGB 8.2 gm/dL (11.4-16.0); Hypochromasia Slight; MCH 28.2 pg (25.0-35.0); MCHC 31.5 g/dL (31.0-37.0); MCV 89.7 fL (80.0-100.0); Mean Platelet Volume 8.3; Platelet Count 178 k/uL (150-450); RBC 2.91 m/uL (3.80-5.40); RDW 13.9 % (11.5-15.5); WBC 4.5 k/uL (3.8-10.6)
[2017-11-25 05:18] LABS: Calcium 8.3 mg/dL (8.4-10.2); Magnesium 2.1 mg/dL (1.6-2.3); Phosphorus 3.7 mg/dL (2.5-4.5)
[2017-11-25 05:53] LABS: Eosinophils # (M) 0.23 k/uL (0-0.7); Lymphocytes # (M) 1.13 k/uL (1.0-4.8); Monocytes # (M) 0.63 k/uL (0-1.0); Neutrophils # (M) 2.52 k/uL (1.3-7.7); Neutrophils % (M) 56 %; Nucleated Red Blood Cells 0 /100 WBC (0-0); Total Cells Counted 100
[2017-11-25] MEDS ORDERED: IPRATROPIUM-ALBUTEROL 3 ML NEB INHALATION PRN (08:29)
[2017-11-25] MEDS: OXYBUTYNIN 10 MG TAB.ER.24 PO SCH ×2 (08:32→20:16)
--- NOTE | 2017-11-25 08:44 | P.PN ---
Subjective Progress Note Date: 11/25/17 67-year-old female patient known history of depression with psychotic features presented to the emergency department with altered mentation. The patient is a [facility] resident. Apparently she was having altered mentation, agitation, restlessness, disruptive behavior to other residents at the [facility]. Apparently she was yelling, acting out, hallucinating, trying to reach things in her speech was very much mumbled and she was dysarthric. His bite all this, the patient was moving all 4 extremities without any limitation. Stiffness. She was having episodes of fever and some sweating and she was slightly tachycardic at a time of admission. No information can be obtained from this patient. No other information is available. Reviewing her medication, the patient has been maintained on a combination of Abilify, Cymbalta and Zyprexa. Her psychiatric history is not known to me at length however she has been admitted in the past year the hospital and she has been seen by psychiatry who supported the history of depression with psychotic features. I do not appreciate any neck stiffness. No reported headache. No reported seizure activity. No skin rashes. No leukocytosis. She does having his labored breathing at the Negative blood gas show no acute abnormality with a pH of 7.37 with a pCO2 of 25 and pO2 of 113 and this was essentially done on room air nontender the patient is not utilizing her nasal cannula and she keeps and pulling it out. Lactic acid level is at 1.2. No leukocytosis. Neurologically screen is negative. Urinalysis is also negative. Abdomen is soft. No body stiffness. Her CPK is mildly elevated at 1250. The glucose is 195. Her creatinine is at 1.7 and she does have a mild component of anion gap metabolic acidosis with anion gap of 18 and a bicarb level of 14. Thus far, the patient has been given 5 mg of Haldol and a total of 2 mg of Ativan without significant response. She remains quite restless and agitated in bed. She is in a 2 point restraints and she'll be moved to the intensive care unit. I made recommendations to give additional 5 mg of Haldol to control her agitation. She was also placed on a bicarb infusion at the rate of 100 mL an hour. On 11/25/2017, the patient is being seen in follow-up. The patient is currently in the intensive care unit. Overnight she was kept in the ICU. She was given a total of 10 mg of Haldol the last dose was given to her around 7:00 in the evening and no Haldol was given since then. She also received another 2 mg of Ativan at around 10 PM. Since then the patient has been calm and quiet and comfortable laying down in bed. She is arousable however she is going back to sleep 1 left unstimulated. No agitation. No thrashing in bed. She hasn't spoken yet. As the patient became more comfortable with sedation, the fever subsided and the patient is less tachycardic. On today's evaluation she is more bronchospastic and wheezy. No reported aspiration. She is essentially having some mouth breathing and she has a dry mouth. No neck stiffness. No hypotension. No leukocytosis. She is on a bicarb drip and the bicarb level is improving. Renal function is also improving and the creatinine is down to 1.3. No seizure activity has been noted. She is still withdrawing all 4 extremities to painful stimuli. Upon repeated stimulation the patient follows some simple commands such as grabbing the hands and wiggling the toes bilaterally. No hyperreflexia. No muscle spasms. No stiffness. No hyperreflexia. Awaiting neurology consultation. Awaiting psychiatry consultation. A consultation will be placed for anesthesia for lumbar puncture to further investigate the mental status change. Objective - Vital Signs Vital signs: Vital Signs Temp 97.5 F L 11/25/17 04:00 Pulse 108 H 11/25/17 07:00 Resp 26 H 11/25/17 07:00 BP 119/56 11/25/17 07:00 Pulse Ox 95 11/25/17 07:00 Intake & Output 11/24/17 11/25/17 11/25/17 18:59 06:59 18:59 Intake Total 2400 150 Output Total 1100 795 55 Balance -1100 1605 95 Weight 119.54 kg 105.7 kg Intake: IV 2150 150 Dextrose 5%-0.45% NaCl 1, 1500 150 000 ml @ 150 mls/hr IV . Q7H [facility] with Sodium Bicarb (1 Meq/ml) 50 ml Rx#:[id number] Sodium Chloride 0.9% 1, 400 000 ml @ 100 mls/hr IV . Q10H [facility] Rx#:[id number] Vancomycin 1,750 mg In 250 Sodium Chloride 0.9% 250 ml @ 125 mls/hr IVPB Q48H [facility] Rx#:[id number] Intake, IV Titration 250 Amount Dextrose 5%-0.45% NaCl 1, 100 000 ml @ 150 mls/hr IV . Q7H [facility] with Sodium Bicarb (1 Meq/ml) 50 ml Rx#:[id number] Levofloxacin 750Mg-D5w 150 Pmx 750 mg In Dextrose/ Water 1 150ml.bag @ 100 mls/hr IVPB Q48H [facility] Rx#: [id number] Output: Urine 1100 795 55 Straight 500 Other: # Bowel Movements 0 - Exam The patient is sedated yet arousable. She follows some simple commands. No agitation this morning. She is moving all 4 extremities without any limitation. .Head exam was generally normal. There was no scleral icterus or corneal arcus. Mucous membranes were moist. Neck is supple and there is no stiffness.Neck was supple and without jugular venous distension, thyromegaly, or carotid bruits. Carotids were easily palpable bilaterally. There was no adenopathy. The patient has significant crowding of the posterior oropharynx. Pupils are equal and reactive to light. Somewhat irregular left pupil.Lungs were clear to auscultation and percussion, and with normal diaphragmatic excursion. No wheezes or rales were noted. Cardiac exam revealed the PMI to be normally situated and sized. The rhythm was regular and no extrasystoles were noted during several minutes of auscultation. The first and second heart sounds were normal and physiologic splitting of the second heart sound was noted. There were no murmurs, rubs, clicks, or gallops.Abdominal exam revealed normal bowel sounds. The abdomen was soft, non-tender, and without masses, organomegaly , or appreciable enlargement of the abdominal aorta. The patient is obese and the patient has an abdominal wall hernia which is easily reducible at this point.Examination of the extremities revealed easily palpable radial, femoral and pedal pulses. There was no cyanosis, clubbing or edema. Neurologically as mentioned the patient has no focal neurological deficit. She is quite agitated and confused and has some psychotic features knowing that she has been reaching stuff in her speech is obviously dysarthric and garbled. Reflexes are +1 symmetric in all 4 extremities. No Babinski. No clonus. - Labs CBC & Chem 7: 11/25/17 04:38 11/25/17 04:38 Labs: Abnormal Lab Results - Last 24 Hours (Table) 11/24/17 11/24/17 11/24/17 Range/Units 08:00 08:00 08:00 RBC 3.39 L (3.80-5.40) m/uL Hgb 9.5 L (11.4-16.0) gm/dL Hct 29.6 L (34.0-46.0) % ABG pH (7.35-7.45) ABG pCO2 (35-45) mmHg ABG pO2 (83-108) mmHg ABG HCO3 (21-25) mmol/L ABG Total CO2 (19-24) mmol/L ABG O2 Saturation (94-97) % Sodium 136 L (137-145) mmol/L Potassium 5.2 H (3.5-5.1) mmol/L Chloride (98-107) mmol/L Carbon Dioxide 14 L (22-30) mmol/L BUN 34 H (7-17) mg/dL Creatinine 1.72 H (0.52-1.04) mg/dL Glucose 159 H (74-99) mg/dL POC Glucose (mg/dL) (75-99) mg/dL Hemoglobin A1c (4.0-6.0) % Calcium (8.4-10.2) mg/dL AST 62 H (14-36) U/L Alkaline Phosphatase 136 H (38-126) U/L Creatine Kinase 1250 H (30-135) U/L Lipase 17 L (23-300) U/L Urine Protein (Negative) Ur Random Sodium (30-90) mmol/L 11/24/17 11/24/17 11/24/17 Range/Units 16:00 16:00 17:13 RBC (3.80-5.40) m/uL Hgb (11.4-16.0) gm/dL Hct (34.0-46.0) % ABG pH (7.35-7.45) ABG pCO2 (35-45) mmHg ABG pO2 (83-108) mmHg ABG HCO3 (21-25) mmol/L ABG Total CO2 (19-24) mmol/L ABG O2 Saturation (94-97) % Sodium (137-145) mmol/L Potassium (3.5-5.1) mmol/L Chloride (98-107) mmol/L Carbon Dioxide (22-30) mmol/L BUN (7-17) mg/dL Creatinine (0.52-1.04) mg/dL Glucose (74-99) mg/dL POC Glucose (mg/dL) 179 H (75-99) mg/dL Hemoglobin A1c (4.0-6.0) % Calcium (8.4-10.2) mg/dL AST (14-36) U/L Alkaline Phosphatase (38-126) U/L Creatine Kinase (30-135) U/L Lipase (23-300) U/L Urine Protein Trace H (Negative) Ur Random Sodium 23 L (30-90) mmol/L 11/24/17 11/24/17 11/24/17 Range/Units 17:40 18:03 18:53 RBC (3.80-5.40) m/uL Hgb (11.4-16.0) gm/dL Hct (34.0-46.0) % ABG pH (7.35-7.45) ABG pCO2 25 L (35-45) mmHg ABG pO2 113 H (83-108) mmHg ABG HCO3 14 L (21-25) mmol/L ABG Total CO2 15 L (19-24) mmol/L ABG O2 Saturation 98.3 H (94-97) % Sodium (137-145) mmol/L Potassium (3.5-5.1) mmol/L Chloride (98-107) mmol/L Carbon Dioxide (22-30) mmol/L BUN (7-17) mg/dL Creatinine (0.52-1.04) mg/dL Glucose (74-99) mg/dL POC Glucose (mg/dL) 195 H (75-99) mg/dL Hemoglobin A1c 6.8 H (4.0-6.0) % Calcium (8.4-10.2) mg/dL AST (14-36) U/L Alkaline Phosphatase (38-126) U/L Creatine Kinase (30-135) U/L Lipase (23-300) U/L Urine Protein (Negative) Ur Random Sodium (30-90) mmol/L 11/24/17 11/24/17 11/25/17 Range/Units 22:05 22:53 04:38 RBC 2.91 L (3.80-5.40) m/uL Hgb 8.2 L (11.4-16.0) gm/dL Hct 26.1 L (34.0-46.0) % ABG pH 7.30 L (7.35-7.45) ABG pCO2 33 L (35-45) mmHg ABG pO2 (83-108) mmHg ABG HCO3 16 L (21-25) mmol/L ABG Total CO2 17 L (19-24) mmol/L ABG O2 Saturation 97.7 H (94-97) % Sodium (137-145) mmol/L Potassium (3.5-5.1) mmol/L Chloride (98-107) mmol/L Carbon Dioxide (22-30) mmol/L BUN (7-17) mg/dL Creatinine (0.52-1.04) mg/dL Glucose (74-99) mg/dL POC Glucose (mg/dL) 237 H (75-99) mg/dL Hemoglobin A1c (4.0-6.0) % Calcium (8.4-10.2) mg/dL AST (14-36) U/L Alkaline Phosphatase (38-126) U/L Creatine Kinase (30-135) U/L Lipase (23-300) U/L Urine Protein (Negative) Ur Random Sodium (30-90) mmol/L 11/25/17 Range/Units 04:38 RBC (3.80-5.40) m/uL Hgb (11.4-16.0) gm/dL Hct (34.0-46.0) % ABG pH (7.35-7.45) ABG pCO2 (35-45) mmHg ABG pO2 (83-108) mmHg ABG HCO3 (21-25) mmol/L ABG Total CO2 (19-24) mmol/L ABG O2 Saturation (94-97) % Sodium (137-145) mmol/L Potassium (3.5-5.1) mmol/L Chloride 111 H (98-107) mmol/L Carbon Dioxide 18 L (22-30) mmol/L BUN 26 H (7-17) mg/dL Creatinine 1.30 H (0.52-1.04) mg/dL Glucose 141 H (74-99) mg/dL POC Glucose (mg/dL) (75-99) mg/dL Hemoglobin A1c (4.0-6.0) % Calcium 8.3 L (8.4-10.2) mg/dL AST (14-36) U/L Alkaline Phosphatase (38-126) U/L Creatine Kinase (30-135) U/L Lipase (23-300) U/L Urine Protein (Negative) Ur Random Sodium (30-90) mmol/L Microbiology - Last 24 Hours (Table) 11/24/17 16:00 Urine Culture - Preliminary Urine,Catheterized Assessment and Plan Plan: Assessment 1 acute altered mentation with psychotic features. Rule out acute psychosis. Rule out acute serotonergic syndrome. Doubt neuroleptic malignant syndrome. Doubt meningoencephalitis. Doubt underlying septic component. The patient was moved to the intensive care unit for further monitoring. We'll control the agitation with Haldol. We'll hydrate the patient. We will consult neurology and psychiatric On today's evaluation of 11/25/2017 the patient is quite sedated yet arousable. She still having some underlying altered mentation. She cannot speak yet and her speech somewhat garbled. She is still has some restlessness whenever she is arousable however she will go quite comfortable once unstimulated. She has not received any further sedation since last night. Furthermore, there is no fever. No leukocytosis. Cultures of been all negative and the patient has been maintained empiric antibiotic coverage with a combination of Levaquin and vancomycin. 2 major depression with psychotic features 3 morbid obesity 4 COPD 5 remote history of lung cancer with a previous lobectomy 6 coronary artery disease with previous [place] and previous cardiac intervention and stenting 7 diabetes mellitus 8 remote history of DVT 9 hyperlipidemia 10 hypertension 11 abdominal wall hernia 12 chronic renal failure and the patient apparently has a stage IV kidney disease 13 mild anion gap metabolic acidosis 14 mild rhabdomyolysis 15 chronic normocytic anemia Plan We'll the patient to the intensive care unit. Hydrate this patient with bicarb infusion the rate of 150 mL an hour. Monitor the fever pattern. We'll request anesthesia to perform a lumbar puncture. We'll send the CSF fluid for cell count and cultures. Neurology consultation. Psychiatric consultation. Abdomen nebulized treatments with albuterol and Atrovent around the clock. Aspiration precautions. Haldol as needed in combination for Ativan should there be any agitation. Keep the patient nothing by mouth for now. We'll continue to follow. The acute kidney injury is improving. She'll be placed on NovoLog insulin/scale coverage. Order a chest x-ray for this morning.
[2017-11-25 08:48] LABS: Glucose,Whole Blood 228 mg/dL (75-99)
[2017-11-25] MEDS: INSULIN ASPART 100 UNIT/ML 1 ML 10 ML VIAL SQ SCH ×4 (08:50→20:36)
[2017-11-25] MEDS: ASPIRIN 81 MG PO SCH (08:51)
[2017-11-25] MEDS: DULoxetine HCL 60 MG CAPSULE.DR PO SCH (08:51)
[2017-11-25] MEDS: PIOGLITAZONE 30 MG TAB PO SCH (08:52)
[2017-11-25] MEDS: FAMOTIDINE 20 MG TAB PO SCH ×2 (08:52→20:16)
[2017-11-25] MEDS: METOPROLOL TARTRATE 12.5 MG TAB PO SCH ×2 (08:52→20:17)
[2017-11-25] MEDS ORDERED: LORATADINE 10 MG TAB PO SCH (09:00)
[2017-11-25] MEDS ORDERED: VANCOMYCIN 1,750 MG in SODIUM CHLORIDE 0.9% 250 ML IVPB SCH (09:00)
--- NOTE | 2017-11-25 09:29 | XR ---
EXAMINATION TYPE: XR chest 1V DATE OF EXAM: 11/25/2017 COMPARISON: Right chest 11/24/2017 HISTORY: Shortness of breath TECHNIQUE: Single frontal view of the chest is obtained. FINDINGS: Patient is rotated. Heart remains enlarged. Central vascularity and interstitium are promi nent. No evident pneumothorax or pleural effusion. There are overlying cardiac leads. IMPRESSION: Correlate to exclude pulmonary venous hypertension and interstitial edema, there may be underlying pulmonary artery hypertension. Follow-up suggested.
--- NOTE | 2017-11-25 09:50 | P.NPCON ---
History of Present Illness - Reason for Consult acute renal failure - History of Present Illness reason for consultation: Acute kidney injury History of present illness: Patient is a 67-year-old female seen in renal consultation for acute kidney injury. Her baseline creatinine is 1 and was elevated at 1.7-1 admission on . Patient was started on IV fluids and creatinine is down to 1.3 today. She is nonoliguric. Patient presented from an ECF with mental status changes. She does have extensive history of psychiatric illness and was apparently hallucinating and was brought to the hospital for further care. Patient was given Haldol and is currently sleeping. She is not able to provide much history at this time.her urinalysis is quite benign. She is currently maintained on half-normal saline with 1 amp of sodium bicarbonate running at [address] of the brain revealed no acute intracranial abnormality. Hemodynamically she's been quite stable with 1 reading of 93/58 for blood pressure. Vital signs are stable. General: The patient appeared well nourished and normally developed. HEENT: Head exam is unremarkable. Neck is without jugular venous distension. LUNGS: Lungs are clear to auscultation and percussion. Breath sounds decreased. HEART: Rate and Rhythm are regular. First and second heart sounds normal. No murmurs, rubs or gallops. ABDOMEN: Abdominal exam reveals normal bowel sounds. Non-tender and non- distended. No evidence of peritonitis. EXTREMITITES: No clubbing, cyanosis, or edema. Past Medical History Past Medical History: Coronary Artery Disease (CAD), Cancer, Chest Pain / Angina , Diabetes Mellitus, Deep Vein Thrombosis (DVT), GERD/Reflux, Hyperlipidemia, Hypertension, Myocardial Infarction (SD), Osteoarthritis (OA) Additional Past Medical History / Comment(s): Major depression with psychotic features, morbid obesity, Chronic kidney disease stage IV, COPD/chronic bronchitis, coronary artery disease with previous history of myocardial infarction back in 2008, lobectomy for lung cancer, abdominal wall hernia R side , generalized weakness, gait dysfunction, falls, DJD T12 and L1, urine incontinence at times. The patient is a custodial resident. Last Myocardial Infarction Date:: 01/20/09 History of Any Multi-Drug Resistant Organisms: VRE Date of last positivie culture/infection: 11/13/17 MDRO Source:: VRE URINE Past Surgical History: Section, Heart Catheterization, Heart Catheterization With Stent, Orthopedic Surgery Additional Past Surgical History / Comment(s): Lung lobectomy, ORIF RIGHT ULNA/ RADIUS, left rotator cuff repair, cataract removals, heel surgery r/t infection (laterality unknown), colonoscopies/ benign polypectomy, PCI/ stent x2, picc line inserted for IV ABX 11/09/2017 Past Anesthesia/Blood Transfusion Reactions: No Reported Reaction Date of Last Stent Placement:: 11/2016 Past Psychological History: Anxiety, Bipolar, Depression Smoking Status: Never smoker Past Alcohol Use History: Unable to Obtain Past Drug Use History: Marijuana - Past Family History Brother(s) Family Medical History: Cancer Medications and Allergies Home Medications Medication Instructions Recorded Confirmed Type ARIPiprazole [Abilify] 10 mg PO HS 01/21/16 11/24/17 History DULoxetine HCL [Cymbalta] 60 mg PO BID 01/21/16 11/24/17 History Oxybutynin Chloride [Oxybutynin 10 mg PO BID@0800,2000 01/21/16 11/24/17 History Chloride ER] Ranitidine HCl 150 mg PO BID 01/21/16 11/24/17 History Loratadine 10 mg PO DAILY 11/13/16 11/24/17 History Aspirin 81 mg PO DAILY #30 chew 11/16/16 11/24/17 Rx Acetaminophen Tab [Tylenol Tab] 650 mg PO Q6H PRN 11/13/17 11/24/17 History Atorvastatin [Lipitor] 40 mg PO HS 11/13/17 11/24/17 History Cranberry Fruit Extract [Cranberry] 500 mg PO HS 11/13/17 11/24/17 History Ergocalciferol (Vitamin D2) 50,000 unit PO HOPPER 11/13/17 11/24/17 History [Vitamin D2] HYDROcodone/APAP 7.5-325MG [Walker 1 tab PO Q6H PRN 11/13/17 11/24/17 History 7.5-325] INSULIN LISPRO (humaLOG) [humaLOG] See Protocol SQ ACHS@07,11,16,20 11/13/17 History Metoprolol Tartrate [Lopressor] 12.5 mg PO BID 11/13/17 11/24/17 History Nitroglycerin Sl Tabs [Nitrostat] 0.4 mg SUBLINGUAL Q5M PRN 11/13/17 11/24/17 History Pioglitazone [Actos] 30 mg PO DAILY 11/13/17 11/24/17 History Sulfamethox-Tmp 800-160Mg [Bactrim 2 tab PO BID #40 tab 11/13/17 11/24/17 Rx DS 800-160 mg] Magnesium Hydroxide [Milk of 2,400 mg PO ONCE PRN 11/23/17 11/24/17 History Magnesia] OLANZapine [ZyPREXA] 10 mg PO HS@199911/24/17 11/24/17 History Allergies Allergy/AdvReac Type Severity Reaction Status Date / Time cephalexin monohydrate Allergy Itching. Verified 11/24/17 09:35 [From Keflex] SWELLING Physical Exam Vitals: Vital Signs Temp Pulse Pulse Resp BP BP Pulse Ox 11/25/17 07:00 108 H 26 H 119/56 95 11/25/17 06:00 104 H 19 138/57 96 11/25/17 05:00 106 H 29 H 99/49 95 11/25/17 04:00 97.5 F L 104 H 28 H 128/58 96 11/25/17 03:00 102 H 18 128/60 94 L 11/25/17 02:00 105 H 22 115/57 97 11/25/17 01:00 103 H 18 112/62 98 11/25/17 00:00 97.7 F 108 H 18 93/58 98 11/24/17 23:00 117 H 25 H 133/83 97 11/24/17 22:30 134 H 28 H 133/83 96 11/24/17 22:00 100.8 F H 131 H 30 H 87 L 11/24/17 21:30 135 H 30 H 151/104 95 11/24/17 21:00 141 H 28 H 123/87 93 L 11/24/17 20:30 134 H 30 H 96 11/24/17 20:15 132 H 52 H 139/99 95 11/24/17 20:00 136 H 132 H 18 168/68 96 11/24/17 19:45 100.4 F H 132 H 37 H 134/82 95 11/24/17 19:30 129 H 40 H 153/61 87 L 11/24/17 19:15 131 H 32 H 150/68 97 11/24/17 19:10 129 H 36 H 144/91 97 11/24/17 19:00 99.2 F 133 H 32 H 144/91 96 11/24/17 18:52 38 H 11/24/17 17:45 100.8 F H 11/24/17 16:51 100.7 F H 132 H 32 H 195/71 91 L 11/24/17 16:45 130 H 38 H 11/24/17 16:34 101.4 F H 77 36 H 150/75 95 11/24/17 15:26 100.2 F H 118 H 22 139/78 97 11/24/17 13:25 95 20 135/80 96 11/24/17 13:11 120 H 20 113/65 96 11/24/17 11:57 99.5 F 126 H 22 126/74 96 Intake and Output 11/24/17 11/25/17 11/25/17 22:59 06:59 14:59 Intake Total 775 1625 150 Output Total 1520 375 55 Balance -745 1250 95 Intake: IV 525 1625 150 Dextrose 5%-0.45% NaCl 1, 300 1200 150 000 ml @ 150 mls/hr IV . Q7H [facility] with Sodium Bicarb (1 Meq/ml) 50 ml Rx#:[id number] Sodium Chloride 0.9% 1, 100 300 000 ml @ 100 mls/hr IV . Q10H [facility] Rx#:[id number] Vancomycin 1,750 mg In 125 125 Sodium Chloride 0.9% 250 ml @ 125 mls/hr IVPB Q48H [facility] Rx#:[id number] Intake, IV Titration 250 Amount Dextrose 5%-0.45% NaCl 1, 100 000 ml @ 150 mls/hr IV . Q7H [facility] with Sodium Bicarb (1 Meq/ml) 50 ml Rx#:[id number] Levofloxacin 750Mg-D5w 150 Pmx 750 mg In Dextrose/ Water 1 150ml.bag @ 100 mls/hr IVPB Q48H [facility] Rx#: [id number] Output: Urine 1520 375 55 Straight 500 Other: # Bowel Movements 0 Weight 105.7 kg Results - Lab Results Most recent lab results ABG pH 7.30 (7.35-7.45) L 11/24/17 22:53 ABG pCO2 33 mmHg (35-45) L 11/24/17 22:53 ABG pO2 107 mmHg (83-108) 11/24/17 22:53 ABG HCO3 16 mmol/L (21-25) L 11/24/17 22:53 ABG O2 Saturation 97.7 % (94-97) H 11/24/17 22:53 Calcium 8.3 mg/dL (8.4-10.2) L 11/25/17 04:38 Phosphorus 3.7 mg/dL (2.5-4.5) 11/25/17 04:38 Magnesium 2.1 mg/dL (1.6-2.3) 11/25/17 04:38 11/25/17 04:38 11/25/17 04:38 Assessment and Plan Plan: assessment: #1.nonoliguric acute kidney injury mostly prerenal improving with IV hydration. I do note that she was on Bactrim as an outpatient which can also falsely elevate the creatinine by impairing its secretion. Creatinine was 1.7 on admission and is down to 1.3 today. Baseline creatinine is near 1. Urinalysis is quite benign. #2. Metabolic acidosis secondary to acute kidney injury and IV fluids. Improved. #3. Anemia. Rule out iron deficiency. #4. Insulin-dependent diabetes mellitus. #5. Encephalopathy likely related to exacerbation of her underlying psychiatric illness. #6. Mild hyperkalemia secondary to acute kidney injury and metabolic acidosis. Bactrim also contributed factor. Improved. Plan: Continue half-normal saline with an amp of sodium bicarbonate to be run at 125 mL an hour. Check iron studies. Avoid nephrotoxic agents and hypotensive episodes. Continue to monitor renal function and urine output. Thank you for the consultation. I will continue to follow patient with you during her hospital stay.
[2017-11-25] MEDS: IPRATROPIUM-ALBUTEROL 3 ML NEB INHALATION SCH ×3 (10:30→19:43)
--- NOTE | 2017-11-25 11:16 | P.PCN ---
Date of Procedure: 11/25/17 Procedure(s) Performed: Procedure=1-lumbar puncture . Preoperative diagnoses= altered mental status Postoperative diagnosis= altered mental status Anesthesia= local lidocaine infiltration 1% 2 mL for skin and subcu infiltration. Condition= critical Complications=none. Indication for the procedure= patient was admitted [facility] secondary to altered mental status, and intensive care unit team requested lumbar puncture, for diagnostic study , the family signed the consent , the gross patient was confused and , Description of the procedure= patient in the procedure room lateral position and monitors applied, the back prepped with chlorhexidine -3, sterile technique , local infiltration of the skin and subcu interstitial with lidocaine 1% 2 mL, then 22-gauge quickie Needle advanced slowly at L4 5 interlaminar space, the cerebrospinal fluid was clear, and no heme no paresthesia, a total of 10 mL of clear cerebrospinal fluid collected in 4 different tubes, the needle removed , Band-Aid applied , patient tolerated the procedure well without any complications, and further management as per intensive care unit team.
[2017-11-25 12:32] LABS: Glucose,Whole Blood 173 mg/dL (75-99)
[2017-11-25 13:09] LABS: Glucose,CSF 114 mg/dL (40-70); Total Protein,CSF 60 mg/dL (12-60)
[2017-11-25 13:38] LABS: Appearance,CSF Clear; CSF Tube Number 3; Nucleated Cells, CSF 3 u/L (0-5); Red Blood Cell, CSF Crenated 100 %; Red Blood Cell, CSF Fresh 0 %; Red Blood Cell,CSF 176 u/L (0-10)
--- NOTE | 2017-11-25 14:30 | P.PN ---
Progress Note - Text Progress Note Date: 11/25/17 I was asked to see the patient for visual hallucinations, patient's chart was reviewed, I spoke with nursing staff and was unable to interview the patient is on 2 occasions she was sound asleep. Patient was last admitted to the psychiatric unit in this hospital in 2012 where she presented with symptoms of psychosis and depression. At that time the patient was maintained on Cymbalta and Risperdal. At that time the patient did have hallucinations that were of a visual nature. Patient was also paranoid at that time, was not eating and was not caring for her ADLs. Patient was also seen in November 2016 and a psychiatric consultation again for a presentation of visual hallucinations at that time the patient was not endorsing or exhibiting any symptoms of depression, there is no other psychotic symptoms present she was not hearing voices nor was she paranoid or delusional at that time. At that time the patient was apparently only on Cymbalta. Patient currently now has a guardian, she has in the past lived with her daughter is unclear when the guardian was obtained. Patient's CAT scan of her brain reveals bifrontal atrophy, and the patient's hemoglobin is 8.2. Per the PES nurse who evaluated the patient in the emergency room the patient has apparently been falling at the [facility] is unclear if this is the cause for the hematomas that were described to me by the nurse in the intensive care unit. Patient received Haldol yesterday total of 10 mg her last dose being given at 8 PM and Ativan 2 mg IV at 22:50 and is sleeping soundly. I will discontinue her Cymbalta at this time. Patient was maintained on Abilify 10 mg as an outpatient as well as Zyprexa 10 mg while she was at the [facility] and was continuing to have visual hallucinations and became increasingly agitated prior to coming to hospital. Patient was examined in the intensive care unit there was some cogwheel rigidity noted in her upper extremities. Would recommend using a lower dose of Haldol if the patient becomes agitated in the future of 0.5 mg every 4 hours when necessary to a max dose of 2 mg in 24 hours, Ativan 1 mg IM can be given with the Haldol. I will return tomorrow to assess the patient, she is sleeping soundly and unable to participate in an interview at this time. per her prior psychiatric history she has been treated for major depressive disorder with psychotic features.
[2017-11-25 16:18] LABS: Iron Saturation 7.2 (12.00-45.00)
[2017-11-25 17:55] LABS: Glucose,Whole Blood 152 mg/dL (75-99)
--- NOTE | 2017-11-25 19:23 | CT ---
EXAMINATION TYPE: CT brain wo con DATE OF EXAM: 11/25/2017 COMPARISON: NONE INDICATION: Altered mental status. DLP: 1171 mGycm, Automated exposure control for dose reduction was used. CONTRAST: None CT of the brain is performed utilizing 3 mm thick sections through the posterior fossa and 3 mm thick sections through the remaining calvarium. Study is not performed within 24 hours of arrival to the hospital. No abnormal hyperdensity is present to suggest an acute intracranial hemorrhage. No mass lesion is evident. No acute infarcts are evident. Ventricles and sulci are appropriate for the patient age. There is a small retention cyst within the right maxillary sinus. Low densities within the anterior r ight orbit. Correlate for prosthesis. This is stable from yesterday. IMPRESSIONS: 1. Atrophy.
[2017-11-25] MEDS: ATORVASTATIN 40 MG TAB PO SCH (20:16)
[2017-11-25 20:52] LABS: Glucose,Whole Blood 129 mg/dL (75-99)
--- NOTE | 2017-11-25 22:13 | PN ---
PROGRESS NOTE DATE OF SERVICE: 11/25/2017 PRESENTING COMPLAINT: Altered mental status. INTERVAL HISTORY: This is a patient who is a resident of [facility], presented with mental status changes, febrile initially, and was empirically put on antibiotics. She was then moved to the ICU. The patient did receive medications last night. This morning she is rather somnolent, though she does wake up. Fevers have been down. CSF earlier today was ordered by Dr. Freedman. REVIEW OF SYSTEMS: Review of systems cannot be done, as the patient is not communicating. CURRENT MEDICATIONS: Reviewed. They include: 1. DuoNeb. 2. D5 saline with bicarb. 3. IV Levaquin. PHYSICAL EXAMINATION: This morning she is afebrile, pulse 109, respiration 23, blood pressure 126/57, pulse ox 94% on 2 L. GENERAL APPEARANCE: Lying in bed, lethargic but arousable. EYES: Pupils equal. Conjunctivae normal. HEENT: External appearance of nose and ears normal. Oral cavity with dry mucous membrane. NECK: JVD unable to assess. Mass not palpable. RESPIRATORY: Effort normal. LUNGS: Decreased breath sounds. CARDIOVASCULAR: First and second sounds normal. No edema. ABDOMEN: Soft, nontender. Liver and spleen not palpable. NEUROLOGICAL: Patient does move all 4 limbs. INVESTIGATIONS: White count 4.5, hemoglobin 8.2, potassium 4, BUN 26, creatinine 1.30. CT scan of the brain done late in the day shows some atrophy. ASSESSMENT: 1. Acute delirium, probably multifactorial. 2. Initially febrile, cause unclear. Patient is empirically covered with antibiotics and fevers are coming down. 3. Morbid obesity; body mass index 51.5. 4. Major depression. 5. Hyperlipidemia. 6. Chronic urinary stress incontinence. 7. Diabetes mellitus, type 2. 8. Patient has a legal guardian, Radha Guadarrama. 9. Acute renal failure; could be prerenal. 10.Acute metabolic acidosis from renal failure. Patient is slow to respond in terms of patient's mental status not changing. Patient's influenza screen was negative. Patient's CPK was not significantly elevated, given that patient's renal failure normally CPK is only slowly excreted. At this point we will continue with empirical treatment, including antibiotics and IV fluids. Will also get a neurology opinion. MMODL / IJN: [id number] /
[2017-11-26 02:56] LABS: Glucose,Whole Blood 224 mg/dL (75-99)
[2017-11-26 04:58] LABS: HCT 28.2 % (34.0-46.0); HGB 8.7 gm/dL (11.4-16.0); Hypochromasia Moderate; MCH 28.6 pg (25.0-35.0); MCHC 30.9 g/dL (31.0-37.0); MCV 92.4 fL (80.0-100.0); Mean Platelet Volume 7.4; Platelet Count 190 k/uL (150-450); RBC 3.05 m/uL (3.80-5.40); RDW 14.3 % (11.5-15.5); WBC 4.2 k/uL (3.8-10.6)
[2017-11-26 05:18] LABS: Calcium 8.2 mg/dL (8.4-10.2); Magnesium 1.8 mg/dL (1.6-2.3); Phosphorus 2.9 mg/dL (2.5-4.5); Potassium 4.6 mmol/L (3.5-5.1)
[2017-11-26] MEDS: DEXTROSE 5%-0.45% NACL 1,000 ML with SODIUM BICARB (1 MEQ/ML) 50 ML IV SCH ×8 (05:37→18:27)
[2017-11-26 05:48] LABS: Basophils # (M) 0.04 k/uL (0-0.2); Eosinophils # (M) 0.13 k/uL (0-0.7); Lymphocytes # (M) 0.92 k/uL (1.0-4.8); Monocytes # (M) 0.55 k/uL (0-1.0); Neutrophils # (M) 2.56 k/uL (1.3-7.7); Neutrophils % (M) 61 %; Nucleated Red Blood Cells 0 /100 WBC (0-0); Total Cells Counted 100
[2017-11-26] MEDS ORDERED: Magnesium Replacement Protocol 1 EACH MISC MISCELLANE PRN (06:59)
[2017-11-26] MEDS: IPRATROPIUM-ALBUTEROL 3 ML NEB INHALATION SCH ×4 (07:25→19:21)
[2017-11-26 07:35] LABS: Glucose,Whole Blood 226 mg/dL (75-99)
[2017-11-26] MEDS: INSULIN ASPART 100 UNIT/ML 1 ML 10 ML VIAL SQ SCH ×4 (08:08→21:15)
[2017-11-26] MEDS: MAGNESIUM SULFATE-D5W PMX 1 GM in DEXTROSE/WATER 1 100ML.BAG IVPB SCH ×2 (08:08→10:06)
[2017-11-26] MEDS: FAMOTIDINE 20 MG TAB PO SCH ×2 (08:09→21:14)
[2017-11-26] MEDS: ASPIRIN 81 MG PO SCH (08:09)
[2017-11-26] MEDS: PIOGLITAZONE 30 MG TAB PO SCH (08:09)
[2017-11-26] MEDS: METOPROLOL TARTRATE 12.5 MG TAB PO SCH ×2 (08:09→21:14)
[2017-11-26] MEDS: OXYBUTYNIN 10 MG TAB.ER.24 PO SCH ×2 (08:09→21:14)
--- NOTE | 2017-11-26 08:54 | XR ---
EXAMINATION TYPE: XR chest 1V portable DATE OF EXAM: 11/26/2017 COMPARISON: Prior chest x-ray 11/25/2017 HISTORY: Shortness of breath TECHNIQUE: Single frontal view of the chest is obtained. FINDINGS: The heart is enlarged. Patient is rotated. No evident pneumothorax or pleural effusion. Pr ominent pulmonary artery is suspected. Lung volumes are low. Interstitium is increased. IMPRESSION: Expiratory rotated exam. Cardiomegaly. Correlate for pulmonary venous hypertension and i nterstitial edema, there may be underlying pulmonary artery hypertension. Follow-up recommended.
--- NOTE | 2017-11-26 11:47 | CONS ---
CONSULTATION DATE OF SERVICE: 11/25/2017 CHIEF COMPLAINT: Altered mental status. HISTORY OF PRESENT ILLNESS: Mrs. Plata is a 67-year-old female, who is being evaluated today on 11/25/2017 by the neurology service per the request of Dr. Jackson for altered mental status. The patient resides in a halfway and has multiple psychiatric disorders including bipolar disorder, depression, and anxiety disorder. In reviewing her home medications, she is on Abilify, Cymbalta and Zyprexa. She was brought into [facility] Emergency Room after she was found to be confused and agitated. The patient was quite disruptive and was yelling at the halfway staff and other residents. It appeared that she was also having hallucinations. In the emergency room, she was noticed to be moving all 4 extremities spontaneously with no obvious weakness. A CT scan of the brain was done, which showed no intracranial abnormalities, but she did have mild generalized atrophy. Her CBC showed anemia with a hemoglobin of 8.2 and hematocrit of 26%. Her comprehensive metabolic profile showed renal insufficiency with a BUN of 26 and creatinine of 1.3. The patient initially had a mild fever and a lumbar puncture was done. I did review the CSF workup which showed no evidence of any infection. She had 176 RBCs which was likely due to a traumatic tap. The patient was sedated and admitted to the intensive care unit for closer monitoring. Her CPK was elevated at 1250 but this has improved with IV hydration. Her antipsychotic medications have been held as there is concerns for serotonin syndrome. She is lying in her bed at the time of my evaluation and continues to be sedated. She is arousable and follows some commands. PAST MEDICAL HISTORY: Anxiety disorder, depression, bipolar disorder, major depression with psychotic features, chronic renal insufficiency, chronic obstructive pulmonary disease, coronary artery disease, history of myocardial infarction, history of lung cancer with lobectomy, hernia repair, chronic gait instability, degenerative joint disease, history deep venous thrombosis, gastroesophageal reflux disease, dyslipidemia, hypertension, arthritis, diabetes, angina, history of , history of orthopedic surgeries. SOCIAL HISTORY: There is no history of any tobacco or alcohol use. There is history of marijuana use. FAMILY HISTORY: Cancer. HOME MEDICATIONS: Reviewed in the chart. ALLERGIES: KEFLEX. REVIEW OF SYSTEM: Unable to obtain, as the patient is sedated. PHYSICAL EXAM: Vital signs show a temperature of 99.3, pulse 109, respiration 23, blood pressure 126/57. GENERAL APPEARANCE: The patient is an obese female, who appears to be sedated. HEENT: Normocephalic, atraumatic, no obvious facial asymmetry is seen. Left pupil has surgical changes. Right pupil is reactive to light. Neck is supple with no masses felt. CARDIOVASCULAR: Regular rate and rhythm. ABDOMEN: Nontender, nondistended. Extremities showed edema with no clubbing seen. NEUROLOGICAL EXAM: The patient is sedated, but she is arousable. She does move all 4 extremities to command. No obvious lateralizing weakness is seen. No facial asymmetry seen on cranial nerve testing. No tremors or seizure-like activity is seen. IMPRESSION: 1. Altered mental status. 2. Psychiatric disorders. 3. Fever. 4. Renal insufficiency. 5. Anemia. RECOMMENDATION: The patient's severe agitation could be due to serotonin syndrome. She is on multiple antipsychotic medications and I do believe these need to be held at this time. A psychiatric consultation is highly recommended and one has been ordered. Continue IV hydration as tolerated. Although the patient did have a mild fever initially, this has improved at the time of my evaluation. Her spinal fluid studies were reviewed and there is no evidence of any intracranial infection. Continue monitoring her anemia as it is significant. An EEG will be ordered. I will also order a repeat CT scan of the brain. Continue neuro checks. I will continue to follow with you. Further recommendations to follow. Thank you for allowing me to participate in the care of your patient. If you have any questions, please feel free to contact me. HUBER / IJN: [id number] /
[2017-11-26 11:51] LABS: VDRL, Qualitative CSF Nonreactive (Nonreactive)
[2017-11-26 12:23] LABS: Glucose,Whole Blood 221 mg/dL (75-99)
--- NOTE | 2017-11-26 13:29 | P.PN ---
Subjective Patient is seen in follow-up for acute kidney injury. Her baseline creatinine is 1 and was elevated at 1.720 admission. GFR is back to baseline. She is currently maintained on bicarbonate drip running at 120 mL an hour. Bicarb level is up to 20. She underwent lumbar puncture altered mental status which is not suggestive of infection. Patient is currently wearing a BiPAP. She is nonoliguric. Vital signs are stable. General: The patient appeared well nourished and normally developed. HEENT: Head exam is unremarkable. Neck is without jugular venous distension. LUNGS: Lungs are clear to auscultation and percussion. Breath sounds decreased. HEART: Rate and Rhythm are regular. First and second heart sounds normal. No murmurs, rubs or gallops. ABDOMEN: Abdominal exam reveals normal bowel sounds. Non-tender and non- distended. No evidence of peritonitis. EXTREMITITES: No clubbing, cyanosis, or edema. Objective - Vital Signs Vital signs: Vital Signs Temp 98.9 F 11/26/17 12:00 Pulse 107 H 11/26/17 12:00 Resp 24 11/26/17 12:00 BP 149/66 11/26/17 12:00 Pulse Ox 99 11/26/17 12:00 Intake & Output 11/25/17 11/26/17 11/26/17 18:59 06:59 18:59 Intake Total 1530 1440 460 Output Total 725 680 200 Balance 805 760 260 Weight 102.9 kg Intake: IV 1530 1440 460 Dextrose 5%-0.45% NaCl 1, 1530 1440 240 000 ml @ 120 mls/hr IV . Q8H45M VIOLETTA with Sodium Bicarb (1 Meq/ml) 50 ml Rx#:[id number] Magnesium Sulfate-D5w Pmx 220 1 gm In Dextrose/Water 1 100ml.bag @ 100 mls/hr IVPB Q1H VIOLETTA Rx#: [id number] Output: Urine 725 680 200 Other: Voiding Method Indwelling Catheter Indwelling Catheter Indwelling Catheter - Labs CBC & Chem 7: 11/26/17 04:33 11/26/17 04:33 Labs: Abnormal Lab Results - Last 24 Hours (Table) 11/25/17 11/25/17 11/25/17 Range/Units 04:38 10:40 17:52 RBC (3.80-5.40) m/uL Hgb (11.4-16.0) gm/dL Hct (34.0-46.0) % MCHC (31.0-37.0) g/dL Lymphocytes # (Manual) (1.0-4.8) k/uL Chloride (98-107) mmol/L Carbon Dioxide (22-30) mmol/L Glucose (74-99) mg/dL POC Glucose (mg/dL) 152 H (75-99) mg/dL Calcium (8.4-10.2) mg/dL Iron 18 L (50-170) ug/dL Iron Saturation 7.20 L (12.00-45.00) Creatine Kinase (30-135) U/L CSF RBC 176 H (0-10) u/L CSF Glucose 114 H (40-70) mg/dL 11/25/17 11/25/17 11/26/17 Range/Units 18:04 20:34 02:54 RBC (3.80-5.40) m/uL Hgb (11.4-16.0) gm/dL Hct (34.0-46.0) % MCHC (31.0-37.0) g/dL Lymphocytes # (Manual) (1.0-4.8) k/uL Chloride (98-107) mmol/L Carbon Dioxide (22-30) mmol/L Glucose (74-99) mg/dL POC Glucose (mg/dL) 129 H 224 H (75-99) mg/dL Calcium (8.4-10.2) mg/dL Iron (50-170) ug/dL Iron Saturation (12.00-45.00) Creatine Kinase 514 H (30-135) U/L CSF RBC (0-10) u/L CSF Glucose (40-70) mg/dL 11/26/17 11/26/17 11/26/17 Range/Units 04:33 04:33 07:29 RBC 3.05 L (3.80-5.40) m/uL Hgb 8.7 L (11.4-16.0) gm/dL Hct 28.2 L (34.0-46.0) % MCHC 30.9 L (31.0-37.0) g/dL Lymphocytes # (Manual) 0.92 L (1.0-4.8) k/uL Chloride 110 H (98-107) mmol/L Carbon Dioxide 20 L (22-30) mmol/L Glucose 237 H (74-99) mg/dL POC Glucose (mg/dL) 226 H (75-99) mg/dL Calcium 8.2 L (8.4-10.2) mg/dL Iron (50-170) ug/dL Iron Saturation (12.00-45.00) Creatine Kinase (30-135) U/L CSF RBC (0-10) u/L CSF Glucose (40-70) mg/dL 11/26/17 Range/Units 12:06 RBC (3.80-5.40) m/uL Hgb (11.4-16.0) gm/dL Hct (34.0-46.0) % MCHC (31.0-37.0) g/dL Lymphocytes # (Manual) (1.0-4.8) k/uL Chloride (98-107) mmol/L Carbon Dioxide (22-30) mmol/L Glucose (74-99) mg/dL POC Glucose (mg/dL) 221 H (75-99) mg/dL Calcium (8.4-10.2) mg/dL Iron (50-170) ug/dL Iron Saturation (12.00-45.00) Creatine Kinase (30-135) U/L CSF RBC (0-10) u/L CSF Glucose (40-70) mg/dL Microbiology - Last 24 Hours (Table) 11/25/17 10:40 CSF Gram Stain - Preliminary Cerebral Spinal Fluid CSF Culture - Preliminary 11/24/17 16:00 Urine Culture - Final Urine,Catheterized Assessment and Plan Plan: assessment: #1. Nonoliguric acute kidney injury mostly prerenal improved with IV hydration. I do note that she was on Bactrim as an outpatient which can also falsely elevate the creatinine by impairing its secretion. Creatinine was 1.7 on admission and is down to 0.83 today. Urinalysis is quite benign. #2. Metabolic acidosis secondary to acute kidney injury and IV fluids. Improved. #3. Anemia. Iron deficiency present. #4. Insulin-dependent diabetes mellitus. #5. Encephalopathy likely related to exacerbation of her underlying psychiatric illness. Lumbar puncture not suggestive of infection. #6. Mild hyperkalemia secondary to acute kidney injury and metabolic acidosis. Bactrim also contributed factor. Improved. Plan: Continue half-normal saline with an amp of sodium bicarbonate - I will decrease the rate to 75 mL an hour. Ferrlecit 125 mg IV daily for 3 days. First dose today. Avoid nephrotoxic agents and hypotensive episodes. Continue to monitor renal function and urine output.
--- NOTE | 2017-11-26 13:36 | P.PN ---
Subjective Progress Note Date: 11/26/17 67-year-old female patient known history of depression with psychotic features presented to the emergency department with altered mentation. The patient is a retirement resident. Apparently she was having altered mentation, agitation, restlessness, disruptive behavior to other residents at the retirement. Apparently she was yelling, acting out, hallucinating, trying to reach things in her speech was very much mumbled and she was dysarthric. His bite all this, the patient was moving all 4 extremities without any limitation. Stiffness. She was having episodes of fever and some sweating and she was slightly tachycardic at a time of admission. No information can be obtained from this patient. No other information is available. Reviewing her medication, the patient has been maintained on a combination of Abilify, Cymbalta and Zyprexa. Her psychiatric history is not known to me at length however she has been admitted in the past year the hospital and she has been seen by psychiatry who supported the history of depression with psychotic features. I do not appreciate any neck stiffness. No reported headache. No reported seizure activity. No skin rashes. No leukocytosis. She does having his labored breathing at the Negative blood gas show no acute abnormality with a pH of 7.37 with a pCO2 of 25 and pO2 of 113 and this was essentially done on room air nontender the patient is not utilizing her nasal cannula and she keeps and pulling it out. Lactic acid level is at 1.2. No leukocytosis. Neurologically screen is negative. Urinalysis is also negative. Abdomen is soft. No body stiffness. Her CPK is mildly elevated at 1250. The glucose is 195. Her creatinine is at 1.7 and she does have a mild component of anion gap metabolic acidosis with anion gap of 18 and a bicarb level of 14. Thus far, the patient has been given 5 mg of Haldol and a total of 2 mg of Ativan without significant response. She remains quite restless and agitated in bed. She is in a 2 point restraints and she'll be moved to the intensive care unit. I made recommendations to give additional 5 mg of Haldol to control her agitation. She was also placed on a bicarb infusion at the rate of 100 mL an hour. On 11/25/2017, the patient is being seen in follow-up. The patient is currently in the intensive care unit. Overnight she was kept in the ICU. She was given a total of 10 mg of Haldol the last dose was given to her around 7:00 in the evening and no Haldol was given since then. She also received another 2 mg of Ativan at around 10 PM. Since then the patient has been calm and quiet and comfortable laying down in bed. She is arousable however she is going back to sleep 1 left unstimulated. No agitation. No thrashing in bed. She hasn't spoken yet. As the patient became more comfortable with sedation, the fever subsided and the patient is less tachycardic. On today's evaluation she is more bronchospastic and wheezy. No reported aspiration. She is essentially having some mouth breathing and she has a dry mouth. No neck stiffness. No hypotension. No leukocytosis. She is on a bicarb drip and the bicarb level is improving. Renal function is also improving and the creatinine is down to 1.3. No seizure activity has been noted. She is still withdrawing all 4 extremities to painful stimuli. Upon repeated stimulation the patient follows some simple commands such as grabbing the hands and wiggling the toes bilaterally. No hyperreflexia. No muscle spasms. No stiffness. No hyperreflexia. Awaiting neurology consultation. Awaiting psychiatry consultation. A consultation will be placed for anesthesia for lumbar puncture to further investigate the mental status change. On 11/26/2017, the patient is being seen in follow-up in the intensive care unit. The patient was already seen by neurology and psychiatry. Mental status still often the patient is still having altered mentation yet she seems to much more awake compared to yesterday. Upon stimulation, she would wake up and open up her eyes and follows simple commands. She can stay awake for longer period of time compared to yesterday. She denies having any headache. She is moving all 4 extremities without any limitation. No seizure activity has been noted. An EEG will be done today. A repeat CAT scan of the brain was done and it showed no evidence of any acute abnormalities and there was diffuse atrophy. Also, lumbar puncture was done that showed no significant white cells or elevation of protein or drop in the blood sugar and the Gram stain and culture has been negative. HSV by PCR still pending for now. The patient is afebrile. The patient is comfortable and she is sleeping for most of the time. She has pages of obstructive sleep apnea and she has a BMI of 44.3 and time she is having some apneic episodes which are essentially the form of obstructive sleep apnea. She is on 2 L of oxygen nasal cannula. Chest x-ray shows no acute abnormalities. Hemodynamically stable. No fever or chills. No neck stiffness. Cultures of been all negative. The white cell count is at 4.2. Rest of the blood work and electrodes were reviewed and the patient's bicarb level is up to 20. I discontinue the vancomycin I kept this patient on Levaquin as an empiric antibiotic coverage. She is receiving DuoNeb nebulized treatments around the clock. Rest of the oral medication been placed on hold and the patient is on a insulin metabolic/Coverage. Objective - Vital Signs Vital signs: Vital Signs Temp 98.9 F 11/26/17 12:00 Pulse 107 H 11/26/17 12:00 Resp 24 11/26/17 12:00 BP 149/66 11/26/17 12:00 Pulse Ox 99 11/26/17 12:00 Intake & Output 11/25/17 11/26/17 11/26/17 18:59 06:59 18:59 Intake Total 1530 1440 460 Output Total 725 680 200 Balance 805 760 260 Weight 102.9 kg Intake: IV 1530 1440 460 Dextrose 5%-0.45% NaCl 1, 1530 1440 240 000 ml @ 120 mls/hr IV . Q8H45M VIOLETTA with Sodium Bicarb (1 Meq/ml) 50 ml Rx#:[id number] Magnesium Sulfate-D5w Pmx 220 1 gm In Dextrose/Water 1 100ml.bag @ 100 mls/hr IVPB Q1H VIOLETTA Rx#: [id number] Output: Urine 725 680 200 Other: Voiding Method Indwelling Catheter Indwelling Catheter Indwelling Catheter - Exam The patient is more arousable compared to yesterday. She follows some simple commands. No agitation this morning. She is moving all 4 extremities without any limitation. .Head exam was generally normal. There was no scleral icterus or corneal arcus. Mucous membranes were moist. Neck is supple and there is no stiffness.Neck was supple and without jugular venous distension, thyromegaly, or carotid bruits. Carotids were easily palpable bilaterally. There was no adenopathy. The patient has significant crowding of the posterior oropharynx. Pupils are equal and reactive to light. Somewhat irregular left pupil.Lungs were clear to auscultation and percussion, and with normal diaphragmatic excursion. No wheezes or rales were noted. Cardiac exam revealed the PMI to be normally situated and sized. The rhythm was regular and no extrasystoles were noted during several minutes of auscultation. The first and second heart sounds were normal and physiologic splitting of the second heart sound was noted. There were no murmurs, rubs, clicks, or gallops.Abdominal exam revealed normal bowel sounds. The abdomen was soft, non-tender, and without masses, organomegaly , or appreciable enlargement of the abdominal aorta. The patient is obese and the patient has an abdominal wall hernia which is easily reducible at this point.Examination of the extremities revealed easily palpable radial, femoral and pedal pulses. There was no cyanosis, clubbing or edema. Neurologically as mentioned the patient has no focal neurological deficit. She is not agitated and she is still lethargic and sleeps quite a bit. She is much easily arousable compared to yesterday. She is following some simple commands. Her speech is more comprehensible on today's evaluation. Reflexes are +1 symmetric in all 4 extremities. No Babinski. No clonus. - Labs CBC & Chem 7: 11/26/17 04:33 11/26/17 04:33 Labs: Abnormal Lab Results - Last 24 Hours (Table) 11/25/17 11/25/17 11/25/17 Range/Units 04:38 10:40 17:52 RBC (3.80-5.40) m/uL Hgb (11.4-16.0) gm/dL Hct (34.0-46.0) % MCHC (31.0-37.0) g/dL Lymphocytes # (Manual) (1.0-4.8) k/uL Chloride (98-107) mmol/L Carbon Dioxide (22-30) mmol/L Glucose (74-99) mg/dL POC Glucose (mg/dL) 152 H (75-99) mg/dL Calcium (8.4-10.2) mg/dL Iron 18 L (50-170) ug/dL Iron Saturation 7.20 L (12.00-45.00) Creatine Kinase (30-135) U/L CSF RBC 176 H (0-10) u/L CSF Glucose 114 H (40-70) mg/dL 11/25/17 11/25/17 11/26/17 Range/Units 18:04 20:34 02:54 RBC (3.80-5.40) m/uL Hgb (11.4-16.0) gm/dL Hct (34.0-46.0) % MCHC (31.0-37.0) g/dL Lymphocytes # (Manual) (1.0-4.8) k/uL Chloride (98-107) mmol/L Carbon Dioxide (22-30) mmol/L Glucose (74-99) mg/dL POC Glucose (mg/dL) 129 H 224 H (75-99) mg/dL Calcium (8.4-10.2) mg/dL Iron (50-170) ug/dL Iron Saturation (12.00-45.00) Creatine Kinase 514 H (30-135) U/L CSF RBC (0-10) u/L CSF Glucose (40-70) mg/dL 11/26/17 11/26/17 11/26/17 Range/Units 04:33 04:33 07:29 RBC 3.05 L (3.80-5.40) m/uL Hgb 8.7 L (11.4-16.0) gm/dL Hct 28.2 L (34.0-46.0) % MCHC 30.9 L (31.0-37.0) g/dL Lymphocytes # (Manual) 0.92 L (1.0-4.8) k/uL Chloride 110 H (98-107) mmol/L Carbon Dioxide 20 L (22-30) mmol/L Glucose 237 H (74-99) mg/dL POC Glucose (mg/dL) 226 H (75-99) mg/dL Calcium 8.2 L (8.4-10.2) mg/dL Iron (50-170) ug/dL Iron Saturation (12.00-45.00) Creatine Kinase (30-135) U/L CSF RBC (0-10) u/L CSF Glucose (40-70) mg/dL 11/26/17 Range/Units 12:06 RBC (3.80-5.40) m/uL Hgb (11.4-16.0) gm/dL Hct (34.0-46.0) % MCHC (31.0-37.0) g/dL Lymphocytes # (Manual) (1.0-4.8) k/uL Chloride (98-107) mmol/L Carbon Dioxide (22-30) mmol/L Glucose (74-99) mg/dL POC Glucose (mg/dL) 221 H (75-99) mg/dL Calcium (8.4-10.2) mg/dL Iron (50-170) ug/dL Iron Saturation (12.00-45.00) Creatine Kinase (30-135) U/L CSF RBC (0-10) u/L CSF Glucose (40-70) mg/dL Microbiology - Last 24 Hours (Table) 11/25/17 10:40 CSF Gram Stain - Preliminary Cerebral Spinal Fluid CSF Culture - Preliminary 11/24/17 16:00 Urine Culture - Final Urine,Catheterized Assessment and Plan Plan: Assessment 1 acute altered mentation with psychotic features. Rule out acute psychosis. Rule out acute serotonergic syndrome. Doubt neuroleptic malignant syndrome. Doubt meningoencephalitis. Doubt underlying septic component. The patient was moved to the intensive care unit for further monitoring. We'll control the agitation with Haldol. We'll hydrate the patient. We will consult neurology and psychiatric On today's evaluation of 11/25/2017 the patient is quite sedated yet arousable. She still having some underlying altered mentation. She cannot speak yet and her speech somewhat garbled. She is still has some restlessness whenever she is arousable however she will go quite comfortable once unstimulated. She has not received any further sedation since last night. Furthermore, there is no fever. No leukocytosis. Cultures of been all negative and the patient has been maintained empiric antibiotic coverage with a combination of Levaquin and vancomycin. On 11/26/2017, the neuro workup is been essentially negative. Lumbar puncture shows no acute abnormalities. Neurologist on the case. Repeat CAT scan of the brain was done and it showed no acute abnormalities and the patient is in progress of having an EEG done. Psychiatric evaluation [place] which is also in progress. The patient is not receiving any psychiatric medication and she has on board Haldol and Ativan should she get any agitation. 2 major depression with psychotic features 3 morbid obesity 4 COPD 5 remote history of lung cancer with a previous lobectomy 6 coronary artery disease with previous PA and previous cardiac intervention and stenting 7 diabetes mellitus 8 remote history of DVT 9 hyperlipidemia 10 hypertension 11 abdominal wall hernia 12 chronic renal failure and the patient apparently has a stage IV kidney disease 13 mild anion gap metabolic acidosis, improving while in the bicarb drip 14 mild rhabdomyolysis, improving and the CPK level has also been normalizing 15 chronic normocytic anemia Plan Monitor mentation and will follow neurology and psychiatry's recommendation. Lumbar puncture was done and is negative. EEG is in progress. Mentation is gradually improving. We'll continue to follow make further recommendations accordingly.
--- NOTE | 2017-11-26 14:47 | P.PN ---
Progress Note - Text Progress Note Date: 11/26/17 I return to see the patient today, she responded to her name but then fell back asleep. Patient is unable to be interviewed at this time. Patient's chart was reviewed her CPK on admission was 1250 and decreased to 514 and 24 hours. Patient's temperature was never higher than 101.4 and this was not sustained. Patient was taking on 120 mg of Cymbalta and has been on Cymbalta 120 mg since November 2016. It is unclear if this was a serotonin syndrome, as the patient has been on her medications for some time unless her dose of hydrocodone had recently been increased or some other medication that does not appear on her summary has been added. Patient's temperature and CPK do not appear to be consistent with a diagnosis of neuroleptic malignant syndrome. I will discontinue the Haldol and would recommend not using any neuroleptics at this time, should the patient become agitated Ativan could be used. I will return to see the patient when she is better able to cooperate with an interview. All of her psychotropic medications have been discontinued at this time.
[2017-11-26 16:55] LABS: Glucose,Whole Blood 142 mg/dL (75-99)
--- NOTE | 2017-11-26 17:59 | PN ---
PROGRESS NOTE DATE OF SERVICE: 11/26/17. PRESENTING COMPLAINT: Altered mental status. INTERVAL HISTORY: The patient is a resident of on psychiatry medications presented with altered mental status, fever, acute confusion. The differential had been syndrome, neuroleptic malignant syndrome, infection. No source of infection has been found. White count never came up. The patient has been more relaxed with no more fevers. Did wake up a bit more today. Not really eating. CSF came back benign. Neurology and Psychiatry also following the patient. REVIEW OF SYSTEMS: Cannot be done as patient is rather lethargic. CURRENT MEDICATIONS: Reviewed. It may be noted that the patient is not taking medications by mouth. PHYSICAL EXAMINATION: Temperature 98.9, pulse 107, respiration 20, blood pressure 149/66, pulse ox 99%. GENERAL APPEARANCE: Lying in bed, lethargic, but arousable more than yesterday. EYES: Pupils equal. Conjunctivae normal. HEENT: External appearance of nose and ears normal. Oral cavity dry mucous membrane. NECK: JVD unable to assess. Mass not palpable. RESPIRATORY: Effort, lungs decreased breath sounds. CARDIOVASCULAR: First and second sounds, no edema. ABDOMEN: Soft, nontender. Liver and spleen not palpable. The patient does respond to commands. INVESTIGATION: White count 4.2, hemoglobin 8.7, potassium 4.6, BUN 16, creatinine 0.83. Accu-Cheks are noted. ASSESSMENT: 1. Acute delirium multifactorial, slow to respond. 2. Initially febrile cause unclear. Empirically on antibiotics. Vancomycin has been discontinued. No source was found. 3. Morbid obesity, BMI 51.5. 4. Major depression. 5. Hyperlipidemia. 6. Chronic urinary stress incontinence. 7. Diabetes mellitus type 2. 8. Patient has legal guardian, Radha Guadarrama. 9. Acute renal failure could be prerenal, improved. 10.Acute metabolic acidosis from renal failure, improved. PLAN: Infection workup has been negative. Per Psychiatry to hold off any Haldol and use Ativan p.r.n. The patient is left on Levaquin, IV fluids. I did discuss with Dr. uH on the phone. She will address patient's anti psychiatry medications when the patient is more awake. MMODL / IJN: [id number] /
[2017-11-26] MEDS: LEVOFLOXACIN 750MG-D5W PMX 750 MG in DEXTROSE/WATER 1 150ML.BAG IVPB SCH (18:28)
--- NOTE | 2017-11-26 18:59 | EEG ---
ELECTROENCEPHALOGRAM REPORT DATE OF SERVICE: 11/26/2017 REASON FOR TESTING: Altered mental status. DESCRIPTION OF THE PROCEDURE: This EEG was performed using a 21-channel digital electroencephalograph, following international 10-20 system. DESCRIPTION OF THE RECORDING: From the beginning of the tracing, and with the patient's eyes closed, the background rhythm was mostly consisting of 8 Hz alpha frequency in the posterior occipital leads. Frequent muscle and movement artifacts are seen. Photic stimulation was performed with no driving response seen. No pathological waves were elicited. Hyperventilation was not performed. More frequent movement artifacts are seen later in the tracing. Hyperventilation was not performed. The patient does reach stage II of sleep during the tracing and occasional K complexes are seen. No epileptiform discharges were seen. Her EKG lead showed a regular rate and rhythm. INTERPRETATION: This asleep and awake EEG is limited due to the frequency of movement and muscle artifacts. No obvious epileptiform discharges were seen. The absence of epileptiform discharges does not rule out the diagnosis of epilepsy; therefore clinical correlation is recommended. MMDAVID / IJN: [id number] /
[2017-11-26 21:05] LABS: Glucose,Whole Blood 178 mg/dL (75-99)
[2017-11-26] MEDS: ATORVASTATIN 40 MG TAB PO SCH (21:14)
[2017-11-26] MEDS: HYDROcodone/APAP 7.5-325MG 1 EACH TAB PO PRN (21:14)
--- NOTE | 2017-11-27 00:20 | P.PN ---
Subjective Progress Note Date: 11/26/17 Principal diagnosis: altered mental status Interval update (11/26/17): Patient was observed in the ICU. Patient is on CPAP machine continuously which also appears to be making a significant improvement in the patient's status. Patient was arousable to verbal stimuli. Patient complied with commands and loud provider to conduct neurological assessment. Patient was observed to be somewhat fatigued or drowsy. However, patient did respond when prompted. Patient is in no acute distress and nursing was in the room. Initial information: Neurology is following on a 67-year-old female for altered mental status. Patient resides in long-term care facility/[facility] and has multiple psychiatric disorders including bipolar, depression and anxiety. Patient's medications noted to include Abilify, Cymbalta and Zyprexa. She is brought to the emergency room where she was found confused and agitated. Patient was disrupted, yelling at staff and residence at the long-term care facility prior to transport. CT of the brain in the ED showed no acute intracranial process but did have mild generalized atrophy. CBC showed anemia with hemoglobin of 8.2 and hematocrit of 26%. CMP showed renal insufficiency. Patient initially had mild fever and a lumbar puncture was done. CSF was negative for any infection. Patient was sedated and admitted to the ICU for closer monitoring. CPK was elevated but has improved with IV hydration. Antipsychotic medications have been held as well as concern for serotonin syndrome. Objective - Vital Signs Vital signs: Vital Signs Temp 98.0 F 11/26/17 20:00 Pulse 119 H 11/26/17 22:00 Resp 12 11/26/17 22:00 BP 119/51 11/26/17 22:00 Pulse Ox 99 11/26/17 22:00 Intake & Output 11/26/17 11/26/17 11/27/17 06:59 18:59 06:59 Intake Total 1440 1115 825 Output Total 680 560 110 Balance 760 555 715 Weight 102.9 kg Intake: IV 1440 1115 225 Dextrose 5%-0.45% NaCl 1, 1440 915 225 000 ml @ 75 mls/hr IV . Q14H VIOLETTA with Sodium Bicarb (1 Meq/ml) 50 ml Rx#:[id number] Magnesium Sulfate-D5w Pmx 200 1 gm In Dextrose/Water 1 100ml.bag @ 100 mls/hr IVPB Q1H VIOLETTA Rx#: [id number] Oral 600 Output: Urine 680 560 110 Other: Voiding Method Indwelling Catheter Indwelling Catheter # Bowel Movements 0 - Exam General appearance: Alert & oriented x3, no apparent distress. Head: Atraumatic, normocephalic, normal inspection Eyes: unequal, left sluggish Ear, nose and throat: Normal exam, mucous membranes moist Neck: Normal inspection, absent tenderness, lymphadenopathy. Respiratory: No increased work of breathing Cardiovascular: Regular rate, rhythm GI/abdominal: nontender, nondistended Extremities: able to move all 4 extremities as requested Neurological: cranial nerves II through XII intact no lateralizing weakness no seizure activity noted on physical exam no pronator drift and no nystagmus. Left lower extremity: 4 minus/5 Right lower extremity: 4 minus/5 Left upper extremity: 4 minus/5 Right upper extremity:4 minus /5 Sensation: equal in all 4 extremities patient appeared fatigued - Labs CBC & Chem 7: 11/26/17 04:33 11/26/17 04:33 Labs: Abnormal Lab Results - Last 24 Hours (Table) 11/25/17 11/26/17 11/26/17 Range/Units 04:38 02:54 04:33 RBC (3.80-5.40) m/uL Hgb (11.4-16.0) gm/dL Hct (34.0-46.0) % MCHC (31.0-37.0) g/dL Lymphocytes # (Manual) (1.0-4.8) k/uL Chloride 110 H (98-107) mmol/L Carbon Dioxide 20 L (22-30) mmol/L Glucose 237 H (74-99) mg/dL POC Glucose (mg/dL) 224 H (75-99) mg/dL Calcium 8.2 L (8.4-10.2) mg/dL Iron 18 L (50-170) ug/dL Iron Saturation 7.20 L (12.00-45.00) 11/26/17 11/26/17 11/26/17 Range/Units 04:33 07:29 12:06 RBC 3.05 L (3.80-5.40) m/uL Hgb 8.7 L (11.4-16.0) gm/dL Hct 28.2 L (34.0-46.0) % MCHC 30.9 L (31.0-37.0) g/dL Lymphocytes # (Manual) 0.92 L (1.0-4.8) k/uL Chloride (98-107) mmol/L Carbon Dioxide (22-30) mmol/L Glucose (74-99) mg/dL POC Glucose (mg/dL) 226 H 221 H (75-99) mg/dL Calcium (8.4-10.2) mg/dL Iron (50-170) ug/dL Iron Saturation (12.00-45.00) 11/26/17 11/26/17 Range/Units 16:36 21:03 RBC (3.80-5.40) m/uL Hgb (11.4-16.0) gm/dL Hct (34.0-46.0) % MCHC (31.0-37.0) g/dL Lymphocytes # (Manual) (1.0-4.8) k/uL Chloride (98-107) mmol/L Carbon Dioxide (22-30) mmol/L Glucose (74-99) mg/dL POC Glucose (mg/dL) 142 H 178 H (75-99) mg/dL Calcium (8.4-10.2) mg/dL Iron (50-170) ug/dL Iron Saturation (12.00-45.00) Microbiology - Last 24 Hours (Table) 11/25/17 10:40 CSF Gram Stain - Preliminary Cerebral Spinal Fluid CSF Culture - Preliminary 11/24/17 16:00 Urine Culture - Final Urine,Catheterized Assessment and Plan (1) Altered mental status Current Visit: Yes Status: Acute Code(s): R41.82 - ALTERED MENTAL STATUS, UNSPECIFIED SNOMED Code(s): 766613894 (2) FELIPA (acute kidney injury) Current Visit: No Status: Acute Code(s): N17.9 - ACUTE KIDNEY FAILURE, UNSPECIFIED SNOMED Code(s): 61196365 Plan: 1. Altered mental status 2. Acute kidney injury Exact underlying etiology for patient's symptoms and presentation appear related to her psychiatric medications as they have been held and the Patient has begun improving in mental clarity, alertness and other psychosocial parameters. Patient was initially thought to have an infectious process however lumbar puncture was negative and laboratory blood work has been corrected. EEG was normal. Repeat CTs of the brain only noted atrophy and no acute process. Lumbar puncture was also negative within the last 72 hours. On physical exam, patient was fully compliant, interactive. recommend continue plan of care as ordered and implemented. Status: Neurology will continue to follow on as-needed basis. I have discussed the plan of care with the physician prior to implementation and he agrees with the plan as implemented.
[2017-11-27] MEDS: HYDROcodone/APAP 7.5-325MG 1 EACH TAB PO PRN ×2 (04:35→12:10)
[2017-11-27] MEDS: SODIUM CHLORIDE 0.9% 1,000 ML IV SCH ×2 (04:35→17:23)
[2017-11-27 05:06] LABS: Basophils % (A) 0 %; Eosinophils # (A) 0.3 k/uL (0-0.7); Eosinophils % (A) 6 %; HGB 8.1 gm/dL (11.4-16.0); Hypochromasia Slight; Lymphocytes # (A) 1.2 k/uL (1.0-4.8); Lymphocytes % (A) 23 %; MCH 28.2 pg (25.0-35.0); MCHC 31.1 g/dL (31.0-37.0); MCV 90.7 fL (80.0-100.0); Mean Platelet Volume 7.8; Monocytes # (A) 0.4 k/uL (0-1.0); Monocytes % (A) 8 %; Neutrophils # (A) 3.1 k/uL (1.3-7.7); Neutrophils % (A) 59 %; Platelet Count 203 k/uL (150-450); RBC 2.86 m/uL (3.80-5.40); RDW 14.7 % (11.5-15.5); WBC 5.3 k/uL (3.8-10.6)
[2017-11-27 05:16] LABS: Calcium 8.3 mg/dL (8.4-10.2); Phosphorus 2.5 mg/dL (2.5-4.5); Potassium 4.2 mmol/L (3.5-5.1)
[2017-11-27 07:46] LABS: Glucose,Whole Blood 178 mg/dL (75-99)
[2017-11-27] MEDS: IPRATROPIUM-ALBUTEROL 3 ML NEB INHALATION SCH ×4 (08:40→19:53)
[2017-11-27] MEDS: METOPROLOL TARTRATE 12.5 MG TAB PO SCH ×2 (08:59→21:06)
[2017-11-27] MEDS: FAMOTIDINE 20 MG TAB PO SCH ×2 (08:59→21:06)
[2017-11-27] MEDS: PIOGLITAZONE 30 MG TAB PO SCH (08:59)
[2017-11-27] MEDS: ASPIRIN 81 MG PO SCH (08:59)
[2017-11-27] MEDS: OXYBUTYNIN 10 MG TAB.ER.24 PO SCH ×2 (09:00→21:06)
[2017-11-27] MEDS: INSULIN ASPART 100 UNIT/ML 1 ML 10 ML VIAL SQ SCH ×4 (09:02→21:07)
--- NOTE | 2017-11-27 09:29 | P.PN ---
Subjective Progress Note Date: 11/27/17 67-year-old female patient known history of depression with psychotic features presented to the emergency department with altered mentation. The patient is a [facility] resident. Apparently she was having altered mentation, agitation, restlessness, disruptive behavior to other residents at the [facility]. Apparently she was yelling, acting out, hallucinating, trying to reach things in her speech was very much mumbled and she was dysarthric. His bite all this, the patient was moving all 4 extremities without any limitation. Stiffness. She was having episodes of fever and some sweating and she was slightly tachycardic at a time of admission. No information can be obtained from this patient. No other information is available. Reviewing her medication, the patient has been maintained on a combination of Abilify, Cymbalta and Zyprexa. Her psychiatric history is not known to me at length however she has been admitted in the past year the hospital and she has been seen by psychiatry who supported the history of depression with psychotic features. I do not appreciate any neck stiffness. No reported headache. No reported seizure activity. No skin rashes. No leukocytosis. She does having his labored breathing at the Negative blood gas show no acute abnormality with a pH of 7.37 with a pCO2 of 25 and pO2 of 113 and this was essentially done on room air nontender the patient is not utilizing her nasal cannula and she keeps and pulling it out. Lactic acid level is at 1.2. No leukocytosis. Neurologically screen is negative. Urinalysis is also negative. Abdomen is soft. No body stiffness. Her CPK is mildly elevated at 1250. The glucose is 195. Her creatinine is at 1.7 and she does have a mild component of anion gap metabolic acidosis with anion gap of 18 and a bicarb level of 14. Thus far, the patient has been given 5 mg of Haldol and a total of 2 mg of Ativan without significant response. She remains quite restless and agitated in bed. She is in a 2 point restraints and she'll be moved to the intensive care unit. I made recommendations to give additional 5 mg of Haldol to control her agitation. She was also placed on a bicarb infusion at the rate of 100 mL an hour. On 11/25/2017, the patient is being seen in follow-up. The patient is currently in the intensive care unit. Overnight she was kept in the ICU. She was given a total of 10 mg of Haldol the last dose was given to her around 7:00 in the evening and no Haldol was given since then. She also received another 2 mg of Ativan at around 10 PM. Since then the patient has been calm and quiet and comfortable laying down in bed. She is arousable however she is going back to sleep 1 left unstimulated. No agitation. No thrashing in bed. She hasn't spoken yet. As the patient became more comfortable with sedation, the fever subsided and the patient is less tachycardic. On today's evaluation she is more bronchospastic and wheezy. No reported aspiration. She is essentially having some mouth breathing and she has a dry mouth. No neck stiffness. No hypotension. No leukocytosis. She is on a bicarb drip and the bicarb level is improving. Renal function is also improving and the creatinine is down to 1.3. No seizure activity has been noted. She is still withdrawing all 4 extremities to painful stimuli. Upon repeated stimulation the patient follows some simple commands such as grabbing the hands and wiggling the toes bilaterally. No hyperreflexia. No muscle spasms. No stiffness. No hyperreflexia. Awaiting neurology consultation. Awaiting psychiatry consultation. A consultation will be placed for anesthesia for lumbar puncture to further investigate the mental status change. On 11/26/2017, the patient is being seen in follow-up in the intensive care unit. The patient was already seen by neurology and psychiatry. Mental status still often the patient is still having altered mentation yet she seems to much more awake compared to yesterday. Upon stimulation, she would wake up and open up her eyes and follows simple commands. She can stay awake for longer period of time compared to yesterday. She denies having any headache. She is moving all 4 extremities without any limitation. No seizure activity has been noted. An EEG will be done today. A repeat CAT scan of the brain was done and it showed no evidence of any acute abnormalities and there was diffuse atrophy. Also, lumbar puncture was done that showed no significant white cells or elevation of protein or drop in the blood sugar and the Gram stain and culture has been negative. HSV by PCR still pending for now. The patient is afebrile. The patient is comfortable and she is sleeping for most of the time. She has pages of obstructive sleep apnea and she has a BMI of 44.3 and time she is having some apneic episodes which are essentially the form of obstructive sleep apnea. She is on 2 L of oxygen nasal cannula. Chest x-ray shows no acute abnormalities. Hemodynamically stable. No fever or chills. No neck stiffness. Cultures of been all negative. The white cell count is at 4.2. Rest of the blood work and electrodes were reviewed and the patient's bicarb level is up to 20. I discontinue the vancomycin I kept this patient on Levaquin as an empiric antibiotic coverage. She is receiving DuoNeb nebulized treatments around the clock. Rest of the oral medication been placed on hold and the patient is on a insulin metabolic/Coverage. On the patient is fully awake and alert and she is following commands and answering questions appropriately. Note that the patient was placed on BiPAP throughout the day yesterday and I took her off the BiPAP this morning. She is not disruptive pH is not yelling. She is having a normal speech i. She is communicating. She has no specific complaints otherwise. The patient as mentioned resides in an [facility] home and she has multiple psychiatric disorders including history of bipolar disorder, depression and anxiety. The patient was taking Abilify, Cymbalta and Zyprexa on outpatient basis. I have not given her any form of sedative medication or Haldol for the past 24 hours. The workup for sepsis and [employer] infection has been negative. CAT scan has been negative. Questionable serotonin syndrome. Currently afebrile. Objective - Vital Signs Vital signs: Vital Signs Temp 97.7 F 11/27/17 04:00 Pulse 100 11/27/17 08:52 Resp 14 11/27/17 06:00 BP 95/48 11/27/17 06:00 Pulse Ox 97 11/27/17 08:42 Intake & Output 11/26/17 11/27/17 11/27/17 18:59 06:59 18:59 Intake Total 1115 1425 Output Total 560 300 Balance 555 1125 Weight 105 kg Intake: IV 1115 600 Dextrose 5%-0.45% NaCl 1, 915 600 000 ml @ 75 mls/hr IV . Q14H [facility] with Sodium Bicarb (1 Meq/ml) 50 ml Rx#:[id number] Magnesium Sulfate-D5w Pmx 200 1 gm In Dextrose/Water 1 100ml.bag @ 100 mls/hr IVPB Q1H [facility] Rx#: [id number] Intake, IV Titration 225 Amount Sodium Chloride 0.9% 1, 225 000 ml @ 75 mls/hr IV . [id number] [facility] Rx#:[id number] Oral 600 Output: Urine 560 300 Other: Voiding Method Indwelling Catheter Indwelling Catheter # Bowel Movements 0 - Exam The patient is awake and alert and the patient is on and any form of respiratory distress. She is following commands and answering questions appropriately.. .Head exam was generally normal. There was no scleral icterus or corneal arcus. Mucous membranes were moist. Neck is supple and there is no stiffness.Neck was supple and without jugular venous distension, thyromegaly, or carotid bruits. Carotids were easily palpable bilaterally. There was no adenopathy. The patient has significant crowding of the posterior oropharynx. Pupils are equal and reactive to light. Somewhat irregular left pupil.Lungs were clear to auscultation and percussion, and with normal diaphragmatic excursion. No wheezes or rales were noted. Cardiac exam revealed the PMI to be normally situated and sized. The rhythm was regular and no extrasystoles were noted during several minutes of auscultation. The first and second heart sounds were normal and physiologic splitting of the second heart sound was noted. There were no murmurs, rubs, clicks, or gallops.Abdominal exam revealed normal bowel sounds. The abdomen was soft, non-tender, and without masses, organomegaly , or appreciable enlargement of the abdominal aorta. The patient is obese and the patient has an abdominal wall hernia which is easily reducible at this point.Examination of the extremities revealed easily palpable radial, femoral and pedal pulses. There was no cyanosis, clubbing or edema. Neurologically patient is moving all 4 extremities. She is aware of place and time for now. She is moving all 4 extremities. Psychiatrically, no agitation no delusions or hallucinations this point and the patient's altered mentation is improved. - Labs CBC & Chem 7: 11/27/17 04:47 11/27/17 04:47 Labs: Abnormal Lab Results - Last 24 Hours (Table) 04/20/18 04/20/18 04/20/18 Range/Units 12:06 16:36 21:03 RBC (3.80-5.40) m/uL Hgb (11.4-16.0) gm/dL Hct (34.0-46.0) % Glucose (74-99) mg/dL POC Glucose (mg/dL) 221 H 142 H 178 H (75-99) mg/dL Calcium (8.4-10.2) mg/dL 11/27/17 11/27/17 11/27/17 Range/Units 04:47 04:47 07:45 RBC 2.86 L (3.80-5.40) m/uL Hgb 8.1 L (11.4-16.0) gm/dL Hct 26.0 L (34.0-46.0) % Glucose 188 H (74-99) mg/dL POC Glucose (mg/dL) 178 H (75-99) mg/dL Calcium 8.3 L (8.4-10.2) mg/dL Microbiology - Last 24 Hours (Table) 11/25/17 10:40 CSF Gram Stain - Preliminary Cerebral Spinal Fluid CSF Culture - Preliminary Assessment and Plan Plan: Assessment 1 acute altered mentation with psychotic features. Rule out acute psychosis. Rule out acute serotonergic syndrome. The patient is normalized and the patient is back to baseline. The patient has no complaints for now. 2 major depression with psychotic features 3 morbid obesity 4 COPD 5 remote history of lung cancer with a previous lobectomy 6 coronary artery disease with previous MD and previous cardiac intervention and stenting 7 diabetes mellitus 8 remote history of DVT 9 hyperlipidemia 10 hypertension 11 abdominal wall hernia 12 chronic renal failure and the patient apparently has a stage IV kidney disease 13 mild anion gap metabolic acidosis, improving and the patient will be taken off the bicarb drip 14 mild rhabdomyolysis, improving and the CPK level has also been normalizing 15 chronic normocytic anemia Plan Patient's neuro workup is negative. CAT scan of the brain is negative. EEG was negative. Neurologic function is back to baseline. Psychiatric status improving. Currently off her psychiatric medication will be awaiting further recommendations from psychiatric regarding restarting this medication. Stop the bicarb drip. Provide diet. We'll continue to follow. Stop the Levaquin. Continue the CPAP treatment overnight at a pressure of 7 cm of water. The patient may need a outpatient sleep evaluation.
--- NOTE | 2017-11-27 09:48 | P.PN ---
Subjective Patient is seen in follow-up for acute kidney injury. Her baseline creatinine is 1 and was elevated at 1.72 on admission. GFR is back to baseline. She is currently maintained on normal saline at 75 mL an hour. She underwent lumbar puncture for altered mental status which is not suggestive of infection. Patient is currently resting in bed. Urine output has been about 20 mL an hour. Oral intake has been poor. She is more awake and alert today. She denies any chest pain or shortness of breath. Vital signs are stable. General: The patient appeared well nourished and normally developed. HEENT: Head exam is unremarkable. Neck is without jugular venous distension. LUNGS: Lungs are clear to auscultation and percussion. Breath sounds decreased. HEART: Rate and Rhythm are regular. First and second heart sounds normal. No murmurs, rubs or gallops. ABDOMEN: Abdominal exam reveals normal bowel sounds. Non-tender and non- distended. No evidence of peritonitis. EXTREMITITES: No clubbing, cyanosis, or edema. Objective - Vital Signs Vital signs: Vital Signs Temp 97.7 F 11/27/17 04:00 Pulse 100 11/27/17 08:52 Resp 14 11/27/17 06:00 BP 95/48 11/27/17 06:00 Pulse Ox 97 11/27/17 08:42 Intake & Output 11/26/17 11/27/17 11/27/17 18:59 06:59 18:59 Intake Total 1115 1425 Output Total 560 300 Balance 555 1125 Weight 105 kg Intake: IV 1115 600 Dextrose 5%-0.45% NaCl 1, 915 600 000 ml @ 75 mls/hr IV . Q14H [facility] with Sodium Bicarb (1 Meq/ml) 50 ml Rx#:[id number] Magnesium Sulfate-D5w Pmx 200 1 gm In Dextrose/Water 1 100ml.bag @ 100 mls/hr IVPB Q1H [facility] Rx#: [id number] Intake, IV Titration 225 Amount Sodium Chloride 0.9% 1, 225 000 ml @ 75 mls/hr IV . [id number] [facility] Rx#:[id number] Oral 600 Output: Urine 560 300 Other: Voiding Method Indwelling Catheter Indwelling Catheter # Bowel Movements 0 - Labs CBC & Chem 7: 11/27/17 04:47 11/27/17 04:47 Labs: Abnormal Lab Results - Last 24 Hours (Table) 11/26/17 11/26/17 11/26/17 Range/Units 12:06 16:36 21:03 RBC (3.80-5.40) m/uL Hgb (11.4-16.0) gm/dL Hct (34.0-46.0) % Glucose (74-99) mg/dL POC Glucose (mg/dL) 221 H 142 H 178 H (75-99) mg/dL Calcium (8.4-10.2) mg/dL 11/27/17 11/27/17 11/27/17 Range/Units 04:47 04:47 07:45 RBC 2.86 L (3.80-5.40) m/uL Hgb 8.1 L (11.4-16.0) gm/dL Hct 26.0 L (34.0-46.0) % Glucose 188 H (74-99) mg/dL POC Glucose (mg/dL) 178 H (75-99) mg/dL Calcium 8.3 L (8.4-10.2) mg/dL Microbiology - Last 24 Hours (Table) 11/25/17 10:40 CSF Gram Stain - Preliminary Cerebral Spinal Fluid CSF Culture - Preliminary Assessment and Plan Plan: assessment: #1. Nonoliguric acute kidney injury mostly prerenal improved with IV hydration. I do note that she was on Bactrim as an outpatient which can also falsely elevate the creatinine by impairing its secretion. Urinalysis is quite benign. Resolved. #2. Metabolic acidosis secondary to acute kidney injury and IV fluids. Improved. #3. Anemia. Iron deficiency present. #4. Insulin-dependent diabetes mellitus. #5. Encephalopathy likely related to exacerbation of her underlying psychiatric illness. Lumbar puncture not suggestive of infection. #6. Mild hyperkalemia secondary to acute kidney injury and metabolic acidosis. Bactrim also contributed factor. Improved. Plan: Continue normal saline at 75 mL an hour. Ferrlecit 125 mg IV daily for 3 days. First dose today. Avoid nephrotoxic agents and hypotensive episodes. Continue to monitor renal function and urine output. Diet to be advanced today. Lasix 20 mg IV once today.
[2017-11-27] MEDS ORDERED: FUROSEMIDE 10 MG/ML 2 ML VIAL IV ONE (09:49)
[2017-11-27 12:35] LABS: Glucose,Whole Blood 152 mg/dL (75-99)
[2017-11-27] MEDS: SODIUM FERRIC GLUCONAT-SUCROSE 125 MG in SODIUM CHLORIDE 0.9% 100 ML IVPB SCH (13:15)
--- NOTE | 2017-11-27 14:33 | PN ---
PROGRESS NOTE DATE OF SERVICE: 11/27/2017 PRESENTING COMPLAINT: Altered mental status. INTERVAL HISTORY: This is a patient who presented with altered mental status, fever. Differential was serotonergic syndrome, neuroleptic malignant syndrome, infection. No source of infection was discovered. Patient remains on Levaquin. Patient actually has come around and awake this morning, talking. Lumbar puncture was negative. Neurological workup otherwise was negative. No focal manifestations. REVIEW OF SYSTEMS: Done for constitutional, cardiovascular, GI, pulmonary; relevant findings as above. CURRENT MEDICATIONS: Reviewed. PHYSICAL EXAMINATION: Afebrile. Pulse 94, respiration 16, blood pressure 118/53, pulse ox 96%. GENERAL APPEARANCE: Lying in bed, awake. Answering questions. EYES: Pupils equal. Conjunctivae normal. HEENT: External appearance of nose and ears normal. Oral cavity more moist. NECK: JVD not raised. Mass not palpable. RESPIRATORY: Effort normal. LUNGS: Decreased breath sounds. CARDIOVASCULAR: First and second sounds normal. No edema. ABDOMEN: Soft, non-tender. Liver and spleen not palpable. PSYCHIATRY: Awake, answering questions appropriately. INVESTIGATIONS: White count 5.3, hemoglobin 8.1, potassium 4.2. ASSESSMENT: 1. Acute delirium, improving. 2. Initial cause of mental status changes could be neuroleptic malignant syndrome; the diagnosis is not entirely clear. 3. Morbid obesity with body mass index of 51.5. 4. Major depression. 5. Hyperlipidemia. 6. Chronic urinary stress incontinence. 7. Diabetes mellitus, type 2. 8. Patient has a legal guardian, Radha Guadarrama. 9. Acute renal failure; could be prerenal. Improved. 10.Acute metabolic acidosis from renal failure, improved. PLAN: Patient is doing much better. Diet will be advanced. Await input from Psychiatry regarding anti-psychotic medications and will go from there. MMODL / IJN: [id number] /
[2017-11-27 16:47] LABS: Glucose,Whole Blood 253 mg/dL (75-99)
[2017-11-27 20:19] LABS: Glucose,Whole Blood 272 mg/dL (75-99)
[2017-11-27] MEDS: ATORVASTATIN 40 MG TAB PO SCH (21:06)
[2017-11-28] MEDS: HYDROcodone/APAP 7.5-325MG 1 EACH TAB PO PRN ×4 (02:28→22:17)
[2017-11-28 04:34] LABS: Basophils % (A) 0 %; Eosinophils # (A) 0.3 k/uL (0-0.7); Eosinophils % (A) 6 %; HCT 27.1 % (34.0-46.0); HGB 8.3 gm/dL (11.4-16.0); Hypochromasia Moderate; Lymphocytes # (A) 1.5 k/uL (1.0-4.8); Lymphocytes % (A) 26 %; MCH 27.9 pg (25.0-35.0); MCHC 30.6 g/dL (31.0-37.0); MCV 91.1 fL (80.0-100.0); Mean Platelet Volume 7.9; Monocytes # (A) 0.4 k/uL (0-1.0); Monocytes % (A) 6 %; Neutrophils # (A) 3.3 k/uL (1.3-7.7); Neutrophils % (A) 58 %; Platelet Count 213 k/uL (150-450); RBC 2.97 m/uL (3.80-5.40); RDW 14.6 % (11.5-15.5); WBC 5.7 k/uL (3.8-10.6)
[2017-11-28 04:47] LABS: Calcium 8.4 mg/dL (8.4-10.2); Magnesium 1.8 mg/dL (1.6-2.3); Phosphorus 3.2 mg/dL (2.5-4.5); Potassium 4.7 mmol/L (3.5-5.1)
[2017-11-28 07:15] LABS: Glucose,Whole Blood 189 mg/dL (75-99)
[2017-11-28] MEDS: IPRATROPIUM-ALBUTEROL 3 ML NEB INHALATION SCH ×4 (07:22→19:22)
[2017-11-28] MEDS: SODIUM CHLORIDE 0.9% 1,000 ML IV SCH (08:23)
[2017-11-28] MEDS: INSULIN ASPART 100 UNIT/ML 1 ML 10 ML VIAL SQ SCH ×4 (08:24→21:39)
[2017-11-28] MEDS: MAGNESIUM SULFATE-D5W PMX 1 GM in DEXTROSE/WATER 1 100ML.BAG IVPB SCH (08:24)
[2017-11-28] MEDS: FAMOTIDINE 20 MG TAB PO SCH ×2 (08:26→21:39)
[2017-11-28] MEDS: OXYBUTYNIN 10 MG TAB.ER.24 PO SCH ×2 (08:26→21:39)
[2017-11-28] MEDS: ASPIRIN 81 MG PO SCH (08:26)
[2017-11-28] MEDS: PIOGLITAZONE 30 MG TAB PO SCH (08:27)
[2017-11-28] MEDS: METOPROLOL TARTRATE 25 MG TAB PO SCH ×2 (08:32→21:40)
--- NOTE | 2017-11-28 08:47 | P.PN ---
Subjective Patient is seen in follow-up for acute kidney injury. Her baseline creatinine is 1 and was elevated at 1.72 on admission. Creatinine did come down to 0.9 but is 1.1 today which is due to diuresis. She underwent lumbar puncture for altered mental status which is not suggestive of infection. Patient is currently resting in bed. She is nonoliguric. Oral intake has improved. She is more awake and alert today. She denies any shortness of breath. Vital signs are stable. General: The patient appeared well nourished and normally developed. HEENT: Head exam is unremarkable. Neck is without jugular venous distension. LUNGS: Lungs are clear to auscultation and percussion. Breath sounds decreased. HEART: Rate and Rhythm are regular. First and second heart sounds normal. No murmurs, rubs or gallops. ABDOMEN: Abdominal exam reveals normal bowel sounds. Non-tender and non- distended. No evidence of peritonitis. EXTREMITITES: No clubbing, cyanosis, or edema. Objective - Vital Signs Vital signs: Vital Signs Temp 98.5 F 11/28/17 00:00 Pulse 96 11/28/17 07:38 Resp 14 11/28/17 07:00 BP 116/54 11/28/17 07:00 Pulse Ox 98 11/28/17 07:00 Intake & Output 11/27/17 11/28/17 11/28/17 18:59 06:59 18:59 Intake Total 1655 825 100 Output Total 1000 1075 125 Balance 655 -250 -25 Weight 105 kg Intake: IV 100 Sodium Ferric Gluconat- 100 Sucrose 125 mg In Sodium Chloride 0.9% 100 ml @ 100 mls/hr IVPB DAILY [facility] Rx#:[id number] Intake, IV Titration 975 825 100 Amount Magnesium Sulfate-D5w Pmx 100 1 gm In Dextrose/Water 1 100ml.bag @ 100 mls/hr IVPB Q1H [facility] Rx#: [id number] Sodium Chloride 0.9% 1, 975 825 000 ml @ 75 mls/hr IV . [id number] [facility] Rx#:[id number] Oral 580 Output: Urine 1000 1075 125 Other: Voiding Method Indwelling Catheter Indwelling Catheter # Bowel Movements 1 - Labs CBC & Chem 7: 11/28/17 04:09 11/28/17 04:09 Labs: Abnormal Lab Results - Last 24 Hours (Table) 11/27/17 11/27/17 11/27/17 Range/Units 12:32 16:46 20:17 RBC (3.80-5.40) m/uL Hgb (11.4-16.0) gm/dL Hct (34.0-46.0) % MCHC (31.0-37.0) g/dL BUN (7-17) mg/dL Creatinine (0.52-1.04) mg/dL Glucose (74-99) mg/dL POC Glucose (mg/dL) 152 H 253 H 272 H (75-99) mg/dL 11/28/17 11/28/17 11/28/17 Range/Units 04:09 04:09 07:13 RBC 2.97 L (3.80-5.40) m/uL Hgb 8.3 L (11.4-16.0) gm/dL Hct 27.1 L (34.0-46.0) % MCHC 30.6 L (31.0-37.0) g/dL BUN 21 H (7-17) mg/dL Creatinine 1.10 H (0.52-1.04) mg/dL Glucose 177 H (74-99) mg/dL POC Glucose (mg/dL) 189 H (75-99) mg/dL Microbiology - Last 24 Hours (Table) 11/25/17 10:40 CSF Gram Stain - Preliminary Cerebral Spinal Fluid CSF Culture - Preliminary Assessment and Plan Plan: assessment: #1. Nonoliguric acute kidney injury mostly prerenal improved with IV hydration. I do note that she was on Bactrim as an outpatient which can also falsely elevate the creatinine by impairing its secretion. Urinalysis is quite benign. Creatinine mildly elevated at 1.1 which is mostly prerenal from diuretics. #2. Metabolic acidosis secondary to acute kidney injury and IV fluids. Improved. #3. Anemia. Iron deficiency present. #4. Insulin-dependent diabetes mellitus. #5. Encephalopathy likely related to exacerbation of her underlying psychiatric illness. Lumbar puncture not suggestive of infection. #6. Mild hyperkalemia secondary to acute kidney injury and metabolic acidosis. Bactrim also contributed factor. Improved. Plan: Ferrlecit 125 mg IV daily for 3 days. Second dose today. Avoid nephrotoxic agents and hypotensive episodes. Continue to monitor renal function and urine output. Encouraged oral intake.
[2017-11-28] MEDS: SODIUM FERRIC GLUCONAT-SUCROSE 125 MG in SODIUM CHLORIDE 0.9% 100 ML IVPB SCH (09:51)
[2017-11-28 12:14] LABS: Glucose,Whole Blood 263 mg/dL (75-99)
--- NOTE | 2017-11-28 13:17 | P.PN ---
Subjective Progress Note Date: 11/28/17 67-year-old female patient known history of depression with psychotic features presented to the emergency department with altered mentation. The patient is a long term resident. Apparently she was having altered mentation, agitation, restlessness, disruptive behavior to other residents at the long term. Apparently she was yelling, acting out, hallucinating, trying to reach things in her speech was very much mumbled and she was dysarthric. His bite all this, the patient was moving all 4 extremities without any limitation. Stiffness. She was having episodes of fever and some sweating and she was slightly tachycardic at a time of admission. No information can be obtained from this patient. No other information is available. Reviewing her medication, the patient has been maintained on a combination of Abilify, Cymbalta and Zyprexa. Her psychiatric history is not known to me at length however she has been admitted in the past year the hospital and she has been seen by psychiatry who supported the history of depression with psychotic features. I do not appreciate any neck stiffness. No reported headache. No reported seizure activity. No skin rashes. No leukocytosis. She does having his labored breathing at the Negative blood gas show no acute abnormality with a pH of 7.37 with a pCO2 of 25 and pO2 of 113 and this was essentially done on room air nontender the patient is not utilizing her nasal cannula and she keeps and pulling it out. Lactic acid level is at 1.2. No leukocytosis. Neurologically screen is negative. Urinalysis is also negative. Abdomen is soft. No body stiffness. Her CPK is mildly elevated at 1250. The glucose is 195. Her creatinine is at 1.7 and she does have a mild component of anion gap metabolic acidosis with anion gap of 18 and a bicarb level of 14. Thus far, the patient has been given 5 mg of Haldol and a total of 2 mg of Ativan without significant response. She remains quite restless and agitated in bed. She is in a 2 point restraints and she'll be moved to the intensive care unit. I made recommendations to give additional 5 mg of Haldol to control her agitation. She was also placed on a bicarb infusion at the rate of 100 mL an hour. On 11/25/2017, the patient is being seen in follow-up. The patient is currently in the intensive care unit. Overnight she was kept in the ICU. She was given a total of 10 mg of Haldol the last dose was given to her around 7:00 in the evening and no Haldol was given since then. She also received another 2 mg of Ativan at around 10 PM. Since then the patient has been calm and quiet and comfortable laying down in bed. She is arousable however she is going back to sleep 1 left unstimulated. No agitation. No thrashing in bed. She hasn't spoken yet. As the patient became more comfortable with sedation, the fever subsided and the patient is less tachycardic. On today's evaluation she is more bronchospastic and wheezy. No reported aspiration. She is essentially having some mouth breathing and she has a dry mouth. No neck stiffness. No hypotension. No leukocytosis. She is on a bicarb drip and the bicarb level is improving. Renal function is also improving and the creatinine is down to 1.3. No seizure activity has been noted. She is still withdrawing all 4 extremities to painful stimuli. Upon repeated stimulation the patient follows some simple commands such as grabbing the hands and wiggling the toes bilaterally. No hyperreflexia. No muscle spasms. No stiffness. No hyperreflexia. Awaiting neurology consultation. Awaiting psychiatry consultation. A consultation will be placed for anesthesia for lumbar puncture to further investigate the mental status change. On 11/26/2017, the patient is being seen in follow-up in the intensive care unit. The patient was already seen by neurology and psychiatry. Mental status still often the patient is still having altered mentation yet she seems to much more awake compared to yesterday. Upon stimulation, she would wake up and open up her eyes and follows simple commands. She can stay awake for longer period of time compared to yesterday. She denies having any headache. She is moving all 4 extremities without any limitation. No seizure activity has been noted. An EEG will be done today. A repeat CAT scan of the brain was done and it showed no evidence of any acute abnormalities and there was diffuse atrophy. Also, lumbar puncture was done that showed no significant white cells or elevation of protein or drop in the blood sugar and the Gram stain and culture has been negative. HSV by PCR still pending for now. The patient is afebrile. The patient is comfortable and she is sleeping for most of the time. She has pages of obstructive sleep apnea and she has a BMI of 44.3 and time she is having some apneic episodes which are essentially the form of obstructive sleep apnea. She is on 2 L of oxygen nasal cannula. Chest x-ray shows no acute abnormalities. Hemodynamically stable. No fever or chills. No neck stiffness. Cultures of been all negative. The white cell count is at 4.2. Rest of the blood work and electrodes were reviewed and the patient's bicarb level is up to 20. I discontinue the vancomycin I kept this patient on Levaquin as an empiric antibiotic coverage. She is receiving DuoNeb nebulized treatments around the clock. Rest of the oral medication been placed on hold and the patient is on a insulin metabolic/Coverage. On the patient is fully awake and alert and she is following commands and answering questions appropriately. Note that the patient was placed on BiPAP throughout the day yesterday and I took her off the BiPAP this morning. She is not disruptive pH is not yelling. She is having a normal speech i. She is communicating. She has no specific complaints otherwise. The patient as mentioned resides in an [facility] home and she has multiple psychiatric disorders including history of bipolar disorder, depression and anxiety. The patient was taking Abilify, Cymbalta and Zyprexa on outpatient basis. I have not given her any form of sedative medication or Haldol for the past 24 hours. The workup for sepsis and [employer]IAN infection has been negative. CAT scan has been negative. Questionable serotonin syndrome. Currently afebrile. On 11/28/2017, the patient is wide awake and she has no specific complaints. She is very much appropriate and I am quite surprised by the massive recovered and the patient has obtained over the past 24 hours. The patient is still awaiting a repeat psychiatric evaluation as far as her reinitiation of antipsychotic medication. I have held all of his medications for now. There was a concern of an acute serotonergic syndrome. Meanwhile, the patient is looking well. She is back on her oral medications. Mi catheter will be discontinued. Oxygen will be discontinued. She is afebrile. Blood sugars under good control. No other significant events over the past 24 hours. Neuro workup has been negative. Awaiting a repeat psychiatric evaluation. Objective - Vital Signs Vital signs: Vital Signs Temp 97.7 F 11/28/17 08:00 Pulse 110 H 11/28/17 11:22 Resp 20 11/28/17 09:00 BP 108/71 11/28/17 09:00 Pulse Ox 97 11/28/17 09:00 Intake & Output 11/27/17 11/28/17 11/28/17 18:59 06:59 18:59 Intake Total 1655 825 300 Output Total 1000 1075 385 Balance 655 -250 -85 Weight 105 kg Intake: IV 100 200 Magnesium Sulfate-D5w Pmx 100 1 gm In Dextrose/Water 1 100ml.bag @ 100 mls/hr IVPB Q1H [facility] Rx#: [id number] Sodium Ferric Gluconat- 100 100 Sucrose 125 mg In Sodium Chloride 0.9% 100 ml @ 100 mls/hr IVPB DAILY [facility] Rx#:[id number] Intake, IV Titration 975 825 100 Amount Magnesium Sulfate-D5w Pmx 100 1 gm In Dextrose/Water 1 100ml.bag @ 100 mls/hr IVPB Q1H [facility] Rx#: [id number] Sodium Chloride 0.9% 1, 975 825 000 ml @ 75 mls/hr IV . [id number] [facility] Rx#:[id number] Oral 580 Output: Urine 1000 1075 385 Other: Voiding Method Indwelling Catheter Indwelling Catheter Indwelling Catheter # Bowel Movements 1 - Exam Gen. appearance the patient is calm comfortable and not in acute distress pH is morbidly obese with a BMI of 45.2. Head exam was generally normal. There was no scleral icterus or corneal arcus. Mucous membranes were moist. Mallampati class IV and significant crowding of the posterior pharynx is seen. Neck was supple and without jugular venous distension, thyromegaly, or carotid bruits. Carotids were easily palpable bilaterally. There was no adenopathy. Lungs sounds are diminished bilaterally.Lungs were clear to auscultation and percussion, and with normal diaphragmatic excursion. No wheezes or rales were noted. Cardiac exam revealed the PMI to be normally situated and sized. The rhythm was regular and no extrasystoles were noted during several minutes of auscultation. The first and second heart sounds were normal and physiologic splitting of the second heart sound was noted. There were no murmurs, rubs, clicks, or gallops. Abdominal exam revealed normal bowel sounds. The abdomen was soft, non-tender, and without masses, organomegaly, or appreciable enlargement of the abdominal aorta. Examination of the extremities revealed easily palpable radial, femoral and pedal pulses. There was no cyanosis, clubbing . There is trace edema in lower extremities bilaterally. Neurologically the patient is awake and alert and is no focal neurological deficit. Examination of the skin revealed no evidence of significant rashes, suspicious appearing nevi or other concerning lesions. - Labs CBC & Chem 7: 11/28/17 04:09 11/28/17 04:09 Labs: Abnormal Lab Results - Last 24 Hours (Table) 11/27/17 11/27/17 11/28/17 Range/Units 16:46 20:17 04:09 RBC (3.80-5.40) m/uL Hgb (11.4-16.0) gm/dL Hct (34.0-46.0) % MCHC (31.0-37.0) g/dL BUN 21 H (7-17) mg/dL Creatinine 1.10 H (0.52-1.04) mg/dL Glucose 177 H (74-99) mg/dL POC Glucose (mg/dL) 253 H 272 H (75-99) mg/dL 11/28/17 11/28/17 11/28/17 Range/Units 04:09 07:13 12:12 RBC 2.97 L (3.80-5.40) m/uL Hgb 8.3 L (11.4-16.0) gm/dL Hct 27.1 L (34.0-46.0) % MCHC 30.6 L (31.0-37.0) g/dL BUN (7-17) mg/dL Creatinine (0.52-1.04) mg/dL Glucose (74-99) mg/dL POC Glucose (mg/dL) 189 H 263 H (75-99) mg/dL Microbiology - Last 24 Hours (Table) 11/25/17 10:40 CSF Gram Stain - Preliminary Cerebral Spinal Fluid CSF Culture - Preliminary Assessment and Plan Plan: Assessment 1 acute altered mentation with psychotic features. Rule out acute psychosis. Rule out acute serotonergic syndrome 2 major depression with psychotic features 3 morbid obesity 4 COPD 5 remote history of lung cancer with a previous lobectomy 6 coronary artery disease with previous ME and previous cardiac intervention and stenting 7 diabetes mellitus 8 remote history of DVT 9 hyperlipidemia 10 hypertension 11 abdominal wall hernia 12 chronic renal failure and the patient apparently has a stage IV kidney disease 13 mild anion gap metabolic acidosis, improving and the patient will be taken off the bicarb drip 14 mild rhabdomyolysis, improving and the CPK level has also been normalizing 15 chronic normocytic anemia Plan The patient had a negative neurologic workup. Her neurologic workup was negative including a CAT scan lumbar puncture. EEG was also negative. The patient is back to her baseline. The patient will need a repeat psychiatric evaluation regarding the reinitiation of her psychiatric medications. She can transfer to the floor. She is competent. She is not agitated. We will keep her off the psychiatric medications for now. Meanwhile, discontinue the Mi catheter. Discontinue oxygen. Advance diet. Blood sugar monitoring. We'll continue to follow.
[2017-11-28 17:09] LABS: Glucose,Whole Blood 223 mg/dL (75-99)
--- NOTE | 2017-11-28 20:17 | P.PN ---
Progress Note - Text Progress Note Date: 11/28/17 Interval history: Patient seen in [facility] today for psychiatry. She has previously been being seen by Dr. Hu. Her Cymbalta as well as other psychotropic medications and been placed on hold due to concerns of serotonin syndrome and possible concerns of neuroleptic malignant syndrome. Her mental status has improved. I was asked to come follow-up the patient today regarding reinitiating psychotropic medications. Patient reports that since she's been off the Cymbalta she has developed depression again. She describes her mood is depressed. She would like to get back on her Cymbalta. Her previous dose was 60 mg twice a day. Mental status exam: She is alert and cooperative with the interview. She is able to maintain alertness. She answers questions appropriately. She describes her mood as depressed. She does not verbalize any thoughts of harm to self or others. She does not show any evidence of active psychosis. She is not presenting as agitated. Plan: Psychiatry to follow up with patient and monitor her mood closely. At this time we'll continue to hold off on Cymbalta as there has been some concern of serotonin syndrome. Consider reinitiating if serotonin syndrome is ruled out or not felt to be a factor in the patient's presenting status.per chart history there has been a significant improvement in her mental status recently.We'll hold off on reinitiating Zyprexa at this point in time, due to there having been some concerns of neuroleptic malignant syndrome.. Consideration should be given to reinitiating Zyprexa if neuroleptic malignant syndrome is ruled out. It is noted that her white count is within normal limits. Psychiatry to follow-up and monitor patient.
[2017-11-28 20:56] LABS: Glucose,Whole Blood 246 mg/dL (75-99)
[2017-11-28] MEDS ORDERED: DULoxetine HCL 30 MG CAPSULE.DR PO SCH (21:00)
[2017-11-28] MEDS: ATORVASTATIN 40 MG TAB PO SCH (21:39)
--- NOTE | 2017-11-28 22:04 | PN ---
PROGRESS NOTE DATE OF SERVICE: November 28, 2017. PRESENTING COMPLAINT: Altered mental status. INTERVAL HISTORY: This is a patient who presented with altered mental status. The patient had a fever, acute renal failure, infection work all came back negative. The patient is awake, talking, actually ate breakfast this morning. Lumbar puncture also was negative. Renal function is greatly improved. REVIEW OF SYSTEMS: Done for constitutional, cardiovascular, GI, pulmonary, psych, relevant findings as above. CURRENT MEDICATIONS: Reviewed. EXAMINATION: Temperature 97.7, pulse 107, respiration 20, blood pressure 118/53, pulse ox 98% on room air. General appearance: Lying in bed, awake, answering questions appropriately. Eyes pupils are equal. Conjunctivae normal. HEENT: External appearance of nose and ears normal. Oral cavity normal. Neck JVD not raised. Mass not palpable. Respiratory effort lungs decreased breath sounds. Cardiovascular 1st and 2nd sounds normal. No edema. ABDOMEN: Soft, nontender. Liver and spleen not palpable. Psychiatry: Awake, answering questions appropriately. INVESTIGATIONS: White count 5.7, hemoglobin 8.3, potassium 4.7, BUN 21, creatinine 1.10. ASSESSMENT: 1. Acute delirium improved, initial cause of mental stages differential could be neuroleptic malignant syndrome, syndrome or metabolic. 2. Morbid obesity BMI 51.5. 3. Major depression. 4. Hyperlipidemia. 5. Chronic urinary stress incontinence. 6. Diabetes mellitus type 2. 7. The patient has a legal guardian, Radha Guadarrama. 8. Acute renal failure could be prerenal, nearly resolved. 9. Acute metabolic acidosis from renal failure much improved. PLAN: Patient doing much better. Awaiting for further input from Psychiatry in terms of medications. Otherwise, the patient is doing rather well. Kidney function has greatly improved. MMODL / IJN: [id number] /
[2017-11-29] MEDS: HYDROcodone/APAP 7.5-325MG 1 EACH TAB PO PRN ×3 (04:01→17:12)
[2017-11-29 04:49] LABS: Basophils # (A) 0.1 k/uL (0-0.2); Basophils % (A) 1 %; Eosinophils # (A) 0.4 k/uL (0-0.7); Eosinophils % (A) 6 %; HCT 28.2 % (34.0-46.0); HGB 8.8 gm/dL (11.4-16.0); Hypochromasia Slight; Lymphocytes # (A) 1.6 k/uL (1.0-4.8); Lymphocytes % (A) 22 %; MCH 28.3 pg (25.0-35.0); MCHC 31.1 g/dL (31.0-37.0); Mean Platelet Volume 7.5; Monocytes # (A) 0.4 k/uL (0-1.0); Monocytes % (A) 5 %; Neutrophils # (A) 4.4 k/uL (1.3-7.7); Neutrophils % (A) 63 %; Platelet Count 274 k/uL (150-450); RDW 14.4 % (11.5-15.5); WBC 6.9 k/uL (3.8-10.6)
[2017-11-29 05:06] LABS: Magnesium 1.9 mg/dL (1.6-2.3); Phosphorus 3.7 mg/dL (2.5-4.5)
[2017-11-29 07:17] LABS: Glucose,Whole Blood 214 mg/dL (75-99)
[2017-11-29] MEDS: IPRATROPIUM-ALBUTEROL 3 ML NEB INHALATION SCH ×4 (07:37→18:56)
[2017-11-29] MEDS: FAMOTIDINE 20 MG TAB PO SCH ×2 (08:43→20:39)
[2017-11-29] MEDS: ASPIRIN 81 MG PO SCH (08:44)
[2017-11-29] MEDS: SODIUM FERRIC GLUCONAT-SUCROSE 125 MG in SODIUM CHLORIDE 0.9% 100 ML IVPB SCH (08:44)
[2017-11-29] MEDS: OXYBUTYNIN 10 MG TAB.ER.24 PO SCH ×2 (08:44→20:39)
[2017-11-29] MEDS: PIOGLITAZONE 30 MG TAB PO SCH (08:44)
[2017-11-29] MEDS: METOPROLOL TARTRATE 25 MG TAB PO SCH ×2 (08:46→20:39)
[2017-11-29] MEDS: INSULIN ASPART 100 UNIT/ML 1 ML 10 ML VIAL SQ SCH ×4 (08:47→20:43)
--- NOTE | 2017-11-29 09:35 | P.PN ---
Subjective Patient is seen in follow-up for acute kidney injury. Her baseline creatinine is 1 and was elevated at 1.72 on admission. Renal function significantly improved since admission. She underwent lumbar puncture for altered mental status which is not suggestive of infection. Patient is currently resting in bed. She is nonoliguric. Oral intake has improved. She is awake and alert. She denies any shortness of breath. Mi catheter was discontinued this morning. Vital signs are stable. General: The patient appeared well nourished and normally developed. HEENT: Head exam is unremarkable. Neck is without jugular venous distension. LUNGS: Lungs are clear to auscultation and percussion. Breath sounds decreased. HEART: Rate and Rhythm are regular. First and second heart sounds normal. No murmurs, rubs or gallops. ABDOMEN: Abdominal exam reveals normal bowel sounds. Non-tender and non- distended. No evidence of peritonitis. EXTREMITITES: No clubbing, cyanosis, or edema. Objective - Vital Signs Vital signs: Vital Signs Temp 97.8 F 11/29/17 06:02 Pulse 95 11/29/17 07:48 Resp 14 11/29/17 06:02 BP 114/51 11/29/17 06:02 Pulse Ox 99 11/29/17 06:02 Intake & Output 11/28/17 11/29/17 11/29/17 18:59 06:59 18:59 Intake Total 900 500 Output Total 1535 1010 Balance -635 -510 Weight 107.4 kg Intake: IV 200 Magnesium Sulfate-D5w Pmx 100 1 gm In Dextrose/Water 1 100ml.bag @ 100 mls/hr IVPB Q1H [facility] Rx#: [id number] Sodium Ferric Gluconat- 100 Sucrose 125 mg In Sodium Chloride 0.9% 100 ml @ 100 mls/hr IVPB DAILY [facility] Rx#:[id number] Intake, IV Titration 100 Amount Magnesium Sulfate-D5w Pmx 100 1 gm In Dextrose/Water 1 100ml.bag @ 100 mls/hr IVPB Q1H [facility] Rx#: [id number] Oral 600 500 Output: Urine 1535 1010 Other: Voiding Method Indwelling Catheter Indwelling Catheter - Labs CBC & Chem 7: 11/29/17 04:19 11/28/17 04:09 Labs: Abnormal Lab Results - Last 24 Hours (Table) 11/28/17 11/28/1711/28/18 Range/Units 12:12 17:08 20:54 RBC (3.80-5.40) m/uL Hgb (11.4-16.0) gm/dL Hct (34.0-46.0) % POC Glucose (mg/dL) 263 H 223 H 246 H (75-99) mg/dL 11/29/17 11/29/17 Range/Units 04:19 07:14 RBC 3.10 L (3.80-5.40) m/uL Hgb 8.8 L (11.4-16.0) gm/dL Hct 28.2 L (34.0-46.0) % POC Glucose (mg/dL) 214 H (75-99) mg/dL Microbiology - Last 24 Hours (Table) 11/25/17 10:40 CSF Gram Stain - Preliminary Cerebral Spinal Fluid CSF Culture - Preliminary Assessment and Plan Plan: assessment: #1. Nonoliguric acute kidney injury mostly prerenal improved with IV hydration. I do note that she was on Bactrim as an outpatient which can also falsely elevate the creatinine by impairing its secretion. Urinalysis is quite benign. Renal function improved since admission. #2. Metabolic acidosis secondary to acute kidney injury and IV fluids. Improved. #3. Anemia. Iron deficiency present. #4. Insulin-dependent diabetes mellitus. #5. Encephalopathy likely related to exacerbation of her underlying psychiatric illness. Lumbar puncture not suggestive of infection. #6. Mild hyperkalemia secondary to acute kidney injury and metabolic acidosis. Bactrim also contributed factor. Improved. Plan: Ferrlecit 125 mg IV daily for 3 days. Third dose today. Avoid nephrotoxic agents and hypotensive episodes. Continue to monitor renal function and urine output. Encouraged oral intake. Mi catheter was discontinued this morning. Monitor serial postvoid residuals.
[2017-11-29 10:39] LABS: Glucose,Whole Blood 163 mg/dL (75-99)
[2017-11-29 11:09] LABS: Glucose,Whole Blood 218 mg/dL (75-99)
--- NOTE | 2017-11-29 12:38 | P.PN ---
Subjective Progress Note Date: 11/29/17 Principal diagnosis: Acute mental status change with psychotic features, possible acute serotonin syndrome. 67-year-old female patient known history of depression with psychotic features presented to the emergency department with altered mentation. The patient is a half-way resident. Apparently she was having altered mentation, agitation, restlessness, disruptive behavior to other residents at the half-way. Apparently she was yelling, acting out, hallucinating, trying to reach things in her speech was very much mumbled and she was dysarthric. His bite all this, the patient was moving all 4 extremities without any limitation. Stiffness. She was having episodes of fever and some sweating and she was slightly tachycardic at a time of admission. No information can be obtained from this patient. No other information is available. Reviewing her medication, the patient has been maintained on a combination of Abilify, Cymbalta and Zyprexa. Her psychiatric history is not known to me at length however she has been admitted in the past year the hospital and she has been seen by psychiatry who supported the history of depression with psychotic features. I do not appreciate any neck stiffness. No reported headache. No reported seizure activity. No skin rashes. No leukocytosis. She does having his labored breathing at the Negative blood gas show no acute abnormality with a pH of 7.37 with a pCO2 of 25 and pO2 of 113 and this was essentially done on room air nontender the patient is not utilizing her nasal cannula and she keeps and pulling it out. Lactic acid level is at 1.2. No leukocytosis. Neurologically screen is negative. Urinalysis is also negative. Abdomen is soft. No body stiffness. Her CPK is mildly elevated at 1250. The glucose is 195. Her creatinine is at 1.7 and she does have a mild component of anion gap metabolic acidosis with anion gap of 18 and a bicarb level of 14. Thus far, the patient has been given 5 mg of Haldol and a total of 2 mg of Ativan without significant response. She remains quite restless and agitated in bed. She is in a 2 point restraints and she'll be moved to the intensive care unit. I made recommendations to give additional 5 mg of Haldol to control her agitation. She was also placed on a bicarb infusion at the rate of 100 mL an hour. On 11/25/2017, the patient is being seen in follow-up. The patient is currently in the intensive care unit. Overnight she was kept in the ICU. She was given a total of 10 mg of Haldol the last dose was given to her around 7:00 in the evening and no Haldol was given since then. She also received another 2 mg of Ativan at around 10 PM. Since then the patient has been calm and quiet and comfortable laying down in bed. She is arousable however she is going back to sleep 1 left unstimulated. No agitation. No thrashing in bed. She hasn't spoken yet. As the patient became more comfortable with sedation, the fever subsided and the patient is less tachycardic. On today's evaluation she is more bronchospastic and wheezy. No reported aspiration. She is essentially having some mouth breathing and she has a dry mouth. No neck stiffness. No hypotension. No leukocytosis. She is on a bicarb drip and the bicarb level is improving. Renal function is also improving and the creatinine is down to 1.3. No seizure activity has been noted. She is still withdrawing all 4 extremities to painful stimuli. Upon repeated stimulation the patient follows some simple commands such as grabbing the hands and wiggling the toes bilaterally. No hyperreflexia. No muscle spasms. No stiffness. No hyperreflexia. Awaiting neurology consultation. Awaiting psychiatry consultation. A consultation will be placed for anesthesia for lumbar puncture to further investigate the mental status change. On 11/26/2017, the patient is being seen in follow-up in the intensive care unit. The patient was already seen by neurology and psychiatry. Mental status still often the patient is still having altered mentation yet she seems to much more awake compared to yesterday. Upon stimulation, she would wake up and open up her eyes and follows simple commands. She can stay awake for longer period of time compared to yesterday. She denies having any headache. She is moving all 4 extremities without any limitation. No seizure activity has been noted. An EEG will be done today. A repeat CAT scan of the brain was done and it showed no evidence of any acute abnormalities and there was diffuse atrophy. Also, lumbar puncture was done that showed no significant white cells or elevation of protein or drop in the blood sugar and the Gram stain and culture has been negative. HSV by PCR still pending for now. The patient is afebrile. The patient is comfortable and she is sleeping for most of the time. She has pages of obstructive sleep apnea and she has a BMI of 44.3 and time she is having some apneic episodes which are essentially the form of obstructive sleep apnea. She is on 2 L of oxygen nasal cannula. Chest x-ray shows no acute abnormalities. Hemodynamically stable. No fever or chills. No neck stiffness. Cultures of been all negative. The white cell count is at 4.2. Rest of the blood work and electrodes were reviewed and the patient's bicarb level is up to 20. I discontinue the vancomycin I kept this patient on Levaquin as an empiric antibiotic coverage. She is receiving DuoNeb nebulized treatments around the clock. Rest of the oral medication been placed on hold and the patient is on a insulin metabolic/Coverage. On the patient is fully awake and alert and she is following commands and answering questions appropriately. Note that the patient was placed on BiPAP throughout the day yesterday and I took her off the BiPAP this morning. She is not disruptive pH is not yelling. She is having a normal speech i. She is communicating. She has no specific complaints otherwise. The patient as mentioned resides in an [facility] home and she has multiple psychiatric disorders including history of bipolar disorder, depression and anxiety. The patient was taking Abilify, Cymbalta and Zyprexa on outpatient basis. I have not given her any form of sedative medication or Haldol for the past 24 hours. 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 CAT scan has been negative. Questionable serotonin syndrome. Currently afebrile. On 11/28/2017, the patient is wide awake and she has no specific complaints. She is very much appropriate and I am quite surprised by the massive recovered and the patient has obtained over the past 24 hours. The patient is still awaiting a repeat psychiatric evaluation as far as her reinitiation of antipsychotic medication. I have held all of his medications for now. There was a concern of an acute serotonergic syndrome. Meanwhile, the patient is looking well. She is back on her oral medications. Mi catheter will be discontinued. Oxygen will be discontinued. She is afebrile. Blood sugars under good control. No other significant events over the past 24 hours. Neuro workup has been negative. Awaiting a repeat psychiatric evaluation. On 11/29/2017, patient is fully awake, in no distress, alert oriented to place, time, and person. Patient apparently made a significant improvement over the last few days. She remains off most of her meds, but today she is asking for Cymbalta to be restarted, and I will go ahead and restart Cymbalta. Apparently the patient has been on all these medications including Cymbalta, Abilify, and Zyprexa for many years. Psychiatry is following, and we'll likely restart these medications. Of course on presentation there was a concern about acute serotonin syndrome, but apparently did resolve. Patient denies taking any other medications than the ones listed in her history. CBC was reviewed hemoglobin is 8.8 WBC count is 6.9. Rest of the labs were unremarkable. Objective - Vital Signs Vital signs: Vital Signs Temp 97.8 F 11/29/17 06:02 Pulse 92 11/29/17 12:03 Resp 14 11/29/17 06:02 BP 114/51 11/29/17 06:02 Pulse Ox 99 11/29/17 06:02 Intake & Output 11/28/17 11/29/17 11/29/17 18:59 06:59 18:59 Intake Total 900 500 Output Total 1535 1010 Balance -635 -510 Weight 107.4 kg Intake: IV 200 Magnesium Sulfate-D5w Pmx 100 1 gm In Dextrose/Water 1 100ml.bag @ 100 mls/hr IVPB Q1H [facility] Rx#: [id number] Sodium Ferric Gluconat- 100 Sucrose 125 mg In Sodium Chloride 0.9% 100 ml @ 100 mls/hr IVPB DAILY [facility] Rx#:[id number] Intake, IV Titration 100 Amount Magnesium Sulfate-D5w Pmx 100 1 gm In Dextrose/Water 1 100ml.bag @ 100 mls/hr IVPB Q1H [facility] Rx#: [id number] Oral 600 500 Output: Urine 1535 1010 Other: Voiding Method Indwelling Catheter Indwelling Catheter Toilet - Exam Physical Exam: Revealed a 67-year-old female in no distress. Head: Atraumatic, normocephalic. HEENT:[Neck is supple.] [No neck masses.] [No thyromegaly.] [No JVD.] Chest: [Clear throughout, no crackles, no rhonchi, no wheezes.] Cardiac Exam: [Normal S1 and S2, no S3 gallop, no murmur.] Abdomen: [Soft, nontender, no megaly, no rebound, no guarding, normal bowel sounds.] Extremities: [No clubbing, no edema, no cyanosis.] Neurological Exam: [No focal neurologic deficit.] Psychiatric: Normal mood affect and mental status examination Musculo skeletal: No limitations in range of motion, - Labs CBC & Chem 7: 11/29/17 04:19 11/28/17 04:09 Labs: Abnormal Lab Results - Last 24 Hours (Table) 11/24/17 11/28/17 11/28/17 Range/Units 06:39 17:08 20:54 RBC (3.80-5.40) m/uL Hgb (11.4-16.0) gm/dL Hct (34.0-46.0) % POC Glucose (mg/dL) 163 H 223 H 246 H (75-99) mg/dL 11/29/17 11/29/17 11/29/17 Range/Units 04:19 07:14 11:08 RBC 3.10 L (3.80-5.40) m/uL Hgb 8.8 L (11.4-16.0) gm/dL Hct 28.2 L (34.0-46.0) % POC Glucose (mg/dL) 214 H 218 H (75-99) mg/dL Microbiology - Last 24 Hours (Table) 11/25/17 10:40 CSF Gram Stain - Final Cerebral Spinal Fluid CSF Culture - Final Assessment and Plan Assessment: 1 acute altered mentation with psychotic features. Rule out acute psychosis. Possible acute serotonin syndrome, however the patient has been on all these medications for a number of years without any side effects. 2 major depression with psychotic features 3 morbid obesity 4 COPD 5 remote history of lung cancer with a previous lobectomy 6 coronary artery disease with previous [place] and previous cardiac intervention and stenting 7 diabetes mellitus 8 remote history of DVT 9 hyperlipidemia 10 hypertension 11 abdominal wall hernia 12 chronic renal failure and the patient apparently has a stage IV kidney disease 13 mild anion gap metabolic acidosis, resolved 14 mild rhabdomyolysis, resolved 15 chronic normocytic anemia Recommendation: Consider transferring the patient out of the ICU to a medical bed with a sitter today. Time with Patient: Less than 30
[2017-11-29 16:56] LABS: Glucose,Whole Blood 390 mg/dL (75-99)
--- NOTE | 2017-11-29 17:03 | P.CN ---
Psychiatric Consult - . Consult date: 11/29/17 Consult:: 11/29/17 16:51 Identification: Patient is a 67-year-old female who was admitted due to confusion and agitation at the custodial. Reason for Consult: Consultation was requested for confusion and agitation History of Present Illness: Patient's chart was reviewed, she was seen and interviewed in her room no family members were present. This is the third time I have attempted to interview this patient as the last 2 visits she has been unable to participate in an interview. Patient states that she has been treated for depression for a number of years on Abilify and Cymbalta and is unaware of why Zyprexa was added to her medication regimen. Patient states that she has not been in the hospital for a number of years and her last admission here was in 2012. Patient states that she came to the hospital because of trouble breathing and walking and was seen things. She states that the visual hallucinations have been present for the last 2-1/2-3 weeks. She reports that she is no longer seeing things. Patient is unable to tell me why the Zyprexa was added to the her medication regimen. She states that she had been on Abilify 10 and Cymbalta 60 twice a day for a period of time prescribed by her primary care physician and is unable to tell me who she was last seen for outpatient psychiatric care. Patient states that she currently is feeling really bad, depressed and wanting to cry but denies any current suicidal ideation. She states that she has attempted suicide in the past but is unable to tell me when her last attempt was. Patient states that she's had auditory hallucinations in the past, as well as being paranoid. Patient denies any AV symptoms at this time. Patient is a fair to poor historian really unable to give much information about her past admissions. Patient has been living at [facility] and does have a guardian. Past Psychiatric History: Per the record the patient's last admission here was in 2012 and she has at least 3 prior admissions for major depressive disorder with psychotic features. Patient's most recent psychiatric medications were Abilify 10 mg, Cymbalta 60 twice a day and Zyprexa 10 mg at bedtime. Past Medical/Surgical History: Patient has a history of diabetes mellitus, coronary artery disease status post stent placement, GERD, hypertension, hyperlipidemia, renal failure status post lobectomy for lung cancer and has had orthopedic surgery in the past Family History: Patient is unable to provide Social History: Patient is currently living at [facility] and has a guardian. She is . Patient does have a daughter with whom she was living when she was last admitted to the inpatient unit in 2012. Mental status: Appearance/Attitude: Patient is lying in a recliner, she is obese , and was cooperative Behavior: Patient did not exhibit any psychomotor agitation or retardation. Speech/Language: Patient's speech was in response to my questions, she was wearing a breathing mask but was coherent Thought Process: Patient's responses were brief and non-elaborative, no evidence of loose associations Thought Content: Patient denied any auditory or visual hallucinations and no delusions or paranoid ideation were elicited. Patient states that she is feeling bad, depressed and feels like wanting to cry all the time. Suicidal/Homicidal Ideation: Patient denied any current suicidal ideation or homicidal ideation Sensorium/Cognition: Patient was alert and oriented to person and location further cognitive testing was not performed Mood/Affect: Patient's mood was depressed and her affect is appropriate to her mood Insight/Judgment: Patient's insight and judgment are limited Assessment: Patient was admitted for confusion and agitation at the custodial , she was given Haldol to control her agitation and on 2 occasions when I attempted to interview the patient she was unable to participate in the interview. Patient is now awake and reporting that she is feeling depressed but states that the visual hallucinations have stopped. She is unable to report to me why she was begun on Zyprexa but states that she's been maintained on Abilify and Cymbalta for a number of years with good results by her PCP. Patient currently is denying any suicidal ideation and states that she is not hearing voices or feeling paranoid. Patient is a fair to poor historian at this time being unable to give many details and much of the information was obtained from the patient's medical record Diagnosis: Delirium now resolved, Major depression, recurrent with psychotic features by history Plan: Patient reports that she is feeling depressed and feels like crying but is not reporting any further visual hallucinations, auditory hallucinations or paranoid ideation. She states that she is not currently suicidal. Patient is requesting to restart her Cymbalta and I discussed with her that he needs to be started at a low dose and slowly titrated. Patient will begun on Cymbalta 30 mg in the morning. At this time I see no reason to restart the patient's Abilify, patient's Abilify, Zyprexa and Cymbalta been held since her admission but the patient did receive Haldol for agitation. We'll continue to assess the patient's response to the Cymbalta and slowly titrate the medication as the patient's condition warrants. Should the patient's psychotic symptoms return a low dose of Abilify can also be started. 11/29/17 16:56
[2017-11-29] MEDS: metFORMIN 850 MG TAB PO SCH (18:59)
--- NOTE | 2017-11-29 19:11 | PN ---
PROGRESS NOTE DATE OF SERVICE: 11/29/17 PRESENTING COMPLAINT: Altered mental status. INTERVAL HISTORY: This patient presented with altered mental status, had a fever, acute renal failure. Infection workup had come back negative. The patient is awake, communicating, tolerating a diet. REVIEW OF SYSTEMS: Done for constitutional, cardiovascular, GI, pulmonary; relevant findings as above. CURRENT MEDICATIONS: Reviewed. The patient started on Cymbalta by Dr. Hu. PHYSICAL EXAMINATION: Temperature 97.8, pulse 95, respiration 17, blood pressure 119/46, pulse ox 96% on room air. General appearance: Lying in bed, awake, answering questions. Eyes: Pupils are equal. Conjunctivae normal. HEENT external appearance of nose and ears normal. Oral cavity normal. Neck JVD not raised. Mass not palpable. Respiratory effort normal. Lungs decreased breath sounds. Cardiovascular: 1st and 2nd sounds normal. No edema. ABDOMEN: Soft, nontender. Liver and spleen not palpable. Psychiatry: Awake, answering questions. INVESTIGATIONS: White count 6.9, hemoglobin 8.8. ASSESSMENT: 1. Acute delirium now improved. 2. Morbid obesity BMI 51.5. 3. Major depression. 4. Hyperlipidemia. 5. Chronic urinary stress incontinence. 6. Diabetes mellitus type 2. 7. Patient legal guardian, Radha Guadarrama. 8. Acute renal failure, resolved. 9. Acute metabolic renal failure much improved. PLAN: Dr. Hu started the patient back on Cymbalta 30 mg a day. We will see how she fairs and will get a final okay from them before she is discharged. The patient is off Abilify and Zyprexa. Will add metformin 50 twice a day starting today. MMODL / IJN: [id number] /
[2017-11-29] MEDS: ATORVASTATIN 40 MG TAB PO SCH (20:39)
[2017-11-29 20:43] LABS: Glucose,Whole Blood 178 mg/dL (75-99)
[2017-11-29] MEDS ORDERED: DULoxetine HCL 60 MG CAPSULE.DR PO SCH (21:00)
[2017-11-30] MEDS: HYDROcodone/APAP 7.5-325MG 1 EACH TAB PO PRN ×3 (00:23→13:17)
[2017-11-30 07:00] LABS: Glucose,Whole Blood 188 mg/dL (75-99)
[2017-11-30] MEDS: IPRATROPIUM-ALBUTEROL 3 ML NEB INHALATION SCH ×3 (07:32→16:13)
[2017-11-30] MEDS: INSULIN ASPART 100 UNIT/ML 1 ML 10 ML VIAL SQ SCH ×2 (07:55→13:14)
[2017-11-30] MEDS: PIOGLITAZONE 30 MG TAB PO SCH (07:56)
[2017-11-30] MEDS: FAMOTIDINE 20 MG TAB PO SCH (07:56)
[2017-11-30] MEDS: ASPIRIN 81 MG PO SCH (07:56)
[2017-11-30] MEDS: metFORMIN 850 MG TAB PO SCH (07:56)
[2017-11-30] MEDS: OXYBUTYNIN 10 MG TAB.ER.24 PO SCH (07:56)
[2017-11-30] MEDS: METOPROLOL TARTRATE 25 MG TAB PO SCH (07:57)
[2017-11-30] MEDS: SODIUM FERRIC GLUCONAT-SUCROSE 125 MG in SODIUM CHLORIDE 0.9% 100 ML IVPB SCH (09:00)
[2017-11-30] MEDS ORDERED: DULoxetine HCL 30 MG CAPSULE.DR PO SCH (09:00)
--- NOTE | 2017-11-30 11:37 | P.PN ---
Subjective Patient is seen in follow-up for acute kidney injury. Her baseline creatinine is 1 and was elevated at 1.72 on admission. Renal function significantly improved since admission. She underwent lumbar puncture for altered mental status which is not suggestive of infection. Patient is currently resting in chair. Oral intake has improved. She is awake and alert. She denies any shortness of breath. Mi catheter discontinued yesterday. She has been waiting. Vital signs are stable. General: The patient appeared well nourished and normally developed. HEENT: Head exam is unremarkable. Neck is without jugular venous distension. LUNGS: Lungs are clear to auscultation and percussion. Breath sounds decreased. HEART: Rate and Rhythm are regular. First and second heart sounds normal. No murmurs, rubs or gallops. ABDOMEN: Abdominal exam reveals normal bowel sounds. Non-tender and non- distended. No evidence of peritonitis. EXTREMITITES: No clubbing, cyanosis, or edema. Objective - Vital Signs Vital signs: Vital Signs Temp 98.1 F 11/30/17 08:00 Pulse 105 H 11/30/17 08:00 Resp 24 11/30/17 08:00 BP 113/65 11/30/17 08:00 Pulse Ox 97 11/30/17 08:00 Intake & Output 11/29/17 11/30/17 11/30/17 18:59 06:59 18:59 Weight 107.8 kg Other: Voiding Method Toilet Toilet Toilet Bedpan Bedpan # Voids 3 3 - Labs CBC & Chem 7: 11/29/17 04:19 11/28/17 04:09 Labs: Abnormal Lab Results - Last 24 Hours (Table) 11/29/17 11/29/17 11/30/17 Range/Units 16:55 20:42 06:58 POC Glucose (mg/dL) 390 H 178 H 188 H (75-99) mg/dL Microbiology - Last 24 Hours (Table) 11/25/17 10:40 CSF Gram Stain - Final Cerebral Spinal Fluid CSF Culture - Final Assessment and Plan Plan: assessment: #1. Nonoliguric acute kidney injury mostly prerenal improved with IV hydration. I do note that she was on Bactrim as an outpatient which can also falsely elevate the creatinine by impairing its secretion. Urinalysis is quite benign. Renal function improved since admission. #2. Metabolic acidosis secondary to acute kidney injury and IV fluids. Improved. #3. Anemia. Iron deficiency present - status post 3 doses of IV iron. #4. Insulin-dependent diabetes mellitus. #5. Encephalopathy likely related to exacerbation of her underlying psychiatric illness. Lumbar puncture not suggestive of infection. #6. Mild hyperkalemia secondary to acute kidney injury and metabolic acidosis. Bactrim also contributed factor. Improved. Plan: Avoid nephrotoxic agents and hypotensive episodes. Continue to monitor renal function and urine output. Encouraged oral intake. Anticipate discharge soon. She will need to follow-up as an outpatient in the next 1-2 weeks.
--- NOTE | 2017-11-30 11:39 | P.PN ---
Subjective Progress Note Date: 11/30/17 Principal diagnosis: Acute mental status change with psychotic features, possible acute serotonin syndrome. 67-year-old female patient known history of depression with psychotic features presented to the emergency department with altered mentation. The patient is a senior living resident. Apparently she was having altered mentation, agitation, restlessness, disruptive behavior to other residents at the senior living. Apparently she was yelling, acting out, hallucinating, trying to reach things in her speech was very much mumbled and she was dysarthric. His bite all this, the patient was moving all 4 extremities without any limitation. Stiffness. She was having episodes of fever and some sweating and she was slightly tachycardic at a time of admission. No information can be obtained from this patient. No other information is available. Reviewing her medication, the patient has been maintained on a combination of Abilify, Cymbalta and Zyprexa. Her psychiatric history is not known to me at length however she has been admitted in the past year the hospital and she has been seen by psychiatry who supported the history of depression with psychotic features. I do not appreciate any neck stiffness. No reported headache. No reported seizure activity. No skin rashes. No leukocytosis. She does having his labored breathing at the Negative blood gas show no acute abnormality with a pH of 7.37 with a pCO2 of 25 and pO2 of 113 and this was essentially done on room air nontender the patient is not utilizing her nasal cannula and she keeps and pulling it out. Lactic acid level is at 1.2. No leukocytosis. Neurologically screen is negative. Urinalysis is also negative. Abdomen is soft. No body stiffness. Her CPK is mildly elevated at 1250. The glucose is 195. Her creatinine is at 1.7 and she does have a mild component of anion gap metabolic acidosis with anion gap of 18 and a bicarb level of 14. Thus far, the patient has been given 5 mg of Haldol and a total of 2 mg of Ativan without significant response. She remains quite restless and agitated in bed. She is in a 2 point restraints and she'll be moved to the intensive care unit. I made recommendations to give additional 5 mg of Haldol to control her agitation. She was also placed on a bicarb infusion at the rate of 100 mL an hour. On 11/25/2017, the patient is being seen in follow-up. The patient is currently in the intensive care unit. Overnight she was kept in the ICU. She was given a total of 10 mg of Haldol the last dose was given to her around 7:00 in the evening and no Haldol was given since then. She also received another 2 mg of Ativan at around 10 PM. Since then the patient has been calm and quiet and comfortable laying down in bed. She is arousable however she is going back to sleep 1 left unstimulated. No agitation. No thrashing in bed. She hasn't spoken yet. As the patient became more comfortable with sedation, the fever subsided and the patient is less tachycardic. On today's evaluation she is more bronchospastic and wheezy. No reported aspiration. She is essentially having some mouth breathing and she has a dry mouth. No neck stiffness. No hypotension. No leukocytosis. She is on a bicarb drip and the bicarb level is improving. Renal function is also improving and the creatinine is down to 1.3. No seizure activity has been noted. She is still withdrawing all 4 extremities to painful stimuli. Upon repeated stimulation the patient follows some simple commands such as grabbing the hands and wiggling the toes bilaterally. No hyperreflexia. No muscle spasms. No stiffness. No hyperreflexia. Awaiting neurology consultation. Awaiting psychiatry consultation. A consultation will be placed for anesthesia for lumbar puncture to further investigate the mental status change. On 11/26/2017, the patient is being seen in follow-up in the intensive care unit. The patient was already seen by neurology and psychiatry. Mental status still often the patient is still having altered mentation yet she seems to much more awake compared to yesterday. Upon stimulation, she would wake up and open up her eyes and follows simple commands. She can stay awake for longer period of time compared to yesterday. She denies having any headache. She is moving all 4 extremities without any limitation. No seizure activity has been noted. An EEG will be done today. A repeat CAT scan of the brain was done and it showed no evidence of any acute abnormalities and there was diffuse atrophy. Also, lumbar puncture was done that showed no significant white cells or elevation of protein or drop in the blood sugar and the Gram stain and culture has been negative. HSV by PCR still pending for now. The patient is afebrile. The patient is comfortable and she is sleeping for most of the time. She has pages of obstructive sleep apnea and she has a BMI of 44.3 and time she is having some apneic episodes which are essentially the form of obstructive sleep apnea. She is on 2 L of oxygen nasal cannula. Chest x-ray shows no acute abnormalities. Hemodynamically stable. No fever or chills. No neck stiffness. Cultures of been all negative. The white cell count is at 4.2. Rest of the blood work and electrodes were reviewed and the patient's bicarb level is up to 20. I discontinue the vancomycin I kept this patient on Levaquin as an empiric antibiotic coverage. She is receiving DuoNeb nebulized treatments around the clock. Rest of the oral medication been placed on hold and the patient is on a insulin metabolic/Coverage. On the patient is fully awake and alert and she is following commands and answering questions appropriately. Note that the patient was placed on BiPAP throughout the day yesterday and I took her off the BiPAP this morning. She is not disruptive pH is not yelling. She is having a normal speech i. She is communicating. She has no specific complaints otherwise. The patient as mentioned resides in an [facility] home and she has multiple psychiatric disorders including history of bipolar disorder, depression and anxiety. The patient was taking Abilify, Cymbalta and Zyprexa on outpatient basis. I have not given her any form of sedative medication or Haldol for the past 24 hours. The workup for sepsis and [employer] infection has been negative. CAT scan has been negative. Questionable serotonin syndrome. Currently afebrile. On 11/28/2017, the patient is wide awake and she has no specific complaints. She is very much appropriate and I am quite surprised by the massive recovered and the patient has obtained over the past 24 hours. The patient is still awaiting a repeat psychiatric evaluation as far as her reinitiation of antipsychotic medication. I have held all of his medications for now. There was a concern of an acute serotonergic syndrome. Meanwhile, the patient is looking well. She is back on her oral medications. Mi catheter will be discontinued. Oxygen will be discontinued. She is afebrile. Blood sugars under good control. No other significant events over the past 24 hours. Neuro workup has been negative. Awaiting a repeat psychiatric evaluation. On 11/29/2017, patient is fully awake, in no distress, alert oriented to place, time, and person. Patient apparently made a significant improvement over the last few days. She remains off most of her meds, but today she is asking for Cymbalta to be restarted, and I will go ahead and restart Cymbalta. Apparently the patient has been on all these medications including Cymbalta, Abilify, and Zyprexa for many years. Psychiatry is following, and we'll likely restart these medications. Of course on presentation there was a concern about acute serotonin syndrome, but apparently did resolve. Patient denies taking any other medications than the ones listed in her history. CBC was reviewed hemoglobin is 8.8 WBC count is 6.9. Rest of the labs were unremarkable. Reevaluated today on 11/30/2017, patient is doing great, asymptomatic, in no distress, evaluated by psychiatry, and it was felt that the patient had a delirium situation, history of major depression, and recurrent psychotic features by history. Recommended restarting her Cymbalta which were already did at a smaller dose. And consider adding Abilify if the patient develops any psychotic symptoms. Today, the patient is relatively asymptomatic, labs were reviewed she had a relatively normal CBC however hemoglobin is 8.8. Her basic metabolic profile is relatively normal. Objective - Vital Signs Vital signs: Vital Signs Temp 98.1 F 11/30/17 08:00 Pulse 105 H 11/30/17 08:00 Resp 24 11/30/17 08:00 BP 113/65 11/30/17 08:00 Pulse Ox 97 11/30/17 08:00 Intake & Output 11/29/17 11/30/17 11/30/17 18:59 06:59 18:59 Weight 107.8 kg Other: Voiding Method Toilet Toilet Toilet Bedpan Bedpan # Voids 3 3 - Exam Physical Exam: Revealed a 67-year-old female in no distress. Head: Atraumatic, normocephalic. HEENT:[Neck is supple.] [No neck masses.] [No thyromegaly.] [No JVD.] Chest: [Clear throughout, no crackles, no rhonchi, no wheezes.] Cardiac Exam: [Normal S1 and S2, no S3 gallop, no murmur.] Abdomen: [Soft, nontender, no megaly, no rebound, no guarding, normal bowel sounds.] Extremities: [No clubbing, no edema, no cyanosis.] Neurological Exam: [No focal neurologic deficit.] Psychiatric: Normal mood affect and mental status examination Musculo skeletal: No limitations in range of motion, - Labs CBC & Chem 7: 11/29/17 04:19 11/28/17 04:09 Labs: Abnormal Lab Results - Last 24 Hours (Table) 11/29/17 11/29/17 11/30/17 Range/Units 16:55 20:42 06:58 POC Glucose (mg/dL) 390 H 178 H 188 H (75-99) mg/dL Microbiology - Last 24 Hours (Table) 11/25/17 10:40 CSF Gram Stain - Final Cerebral Spinal Fluid CSF Culture - Final Assessment and Plan Assessment: 1 acute altered mentation with psychotic features. Rule out acute psychosis. Possible acute serotonin syndrome, however the patient has been on all these medications for a number of years without any side effects. 2 major depression with psychotic features 3 morbid obesity 4 COPD 5 remote history of lung cancer with a previous lobectomy 6 coronary artery disease with previous HI and previous cardiac intervention and stenting 7 diabetes mellitus 8 remote history of DVT 9 hyperlipidemia 10 hypertension 11 abdominal wall hernia 12 chronic renal failure and the patient apparently has a stage IV kidney disease 13 mild anion gap metabolic acidosis, resolved 14 mild rhabdomyolysis, resolved 15 chronic normocytic anemia Recommendation: Continue present medications, consider transferring the patient out of the ICU to a regular medical floor. Patient denies any suicidal or homicidal thoughts, and she has no hallucinations or paranoid ideations. We'll continue to follow. Reviewed the notes from psychiatry. Time with Patient: Less than 30
[2017-11-30 11:41] VITALS: BMI 46.4
[2017-11-30 11:54] LABS: Glucose,Whole Blood 206 mg/dL (75-99)
--- NOTE | 2017-11-30 14:58 | P.PN ---
Progress Note - Text Progress Note Date: 11/30/17 Interval History: Patient is a 67-year-old female who was seen again today in follow-up to a psychiatric consultation. Patient states that she's been doing fairly well, she reports that she's been eating well and sleeping well. She does not report any further visual hallucinations no auditory hallucinations and states she is not feeling depressed or suicidal. Mental Status: Appearance/Attitude: Patient was sitting in a recliner, she made good eye contact and was cooperative Behavior: Patient did not exhibit any psychomotor agitation or retardation. Speech/Language: Speech was spontaneous of normal volume and rhythm and she is coherent Thought Process: Patient was goal-directed there is no evidence of loose association or flight of ideas. Thought Content: Patient denied any auditory or visual hallucinations no delusions or paranoid ideation were elicited. Patient stated that she is not feeling depressed and states she has been eating and sleeping well. Suicidal/Homicidal Ideation: Patient denied any current suicidal or homicidal ideation Sensorium/Cognition: Patient is alert and oriented to person, place, and situation and her recent and remote memory are grossly intact Mood/Affect: Patient's mood was pleasant and her affect was appropriate Assessment: Patient was restarted on Cymbalta 30 mg in the morning and is not having any side effects from the medication and is not reporting that she's feeling suicidal or depressed. Patient is also not reporting any psychotic symptoms specifically any visual hallucinations. Patient reports that she is sleeping and eating well. Plan: Would continue at this time the Cymbalta 30 mg in the morning, this can be titrated up as the patient requires based on her response as well as will not restart the Abilify at this time as there is no evidence of any psychotic symptoms and this certainly can be restarted at a low dose such as 2-5 mg once daily should her depression and not respond to the Cymbalta or she begins to report psychotic symptoms. We will follow the patient while she is in the hospital.
[2017-11-30 16:16] VITALS: PULSE 90
[2017-11-30 16:47] VITALS: BP 125/58; RESP 13; TEMP 98
--- NOTE | 2017-11-30 16:56 | DS ---
DISCHARGE SUMMARY DATE OF ADMISSION: 11/24/17 DATE OF DISCHARGE: 11/30/17. FINAL DIAGNOSES: 1. Acute delirium, multifactorial. 2. Morbid obesity, BMI 51.5. 3. Major depression. 4. Hyperlipidemia. 5. Chronic urinary stress incontinence. 6. Diabetes mellitus type 2. 7. The patient has a legal guardian, Radha Guadarrama. 8. Acute renal failure likely prerenal, resolved. 9. Acute metabolic encephalopathy from renal failure, improved. CONSULTATION: 1. Dr. Rahman from Neurology. 2. Dr. Freedman from Critical Care. 3. Dr. Hu from Psychiatry. 4. Dr. Francisco from Nephrology. HOSPITAL COURSE: This patient presented with altered mental status. Creatinine was 1.72 which did come down to 1.1 by the time of discharge. Some of the patient's antipsychotics medicine were not continued that include Abilify and Zyprexa. The patient was started back on Cymbalta by the psychiatrist and this can be titrated as an outpatient depending on her response. The patient is currently starting a diet. Comfortable, answering questions. EEG did not show any seizure activity. CT scan of the brain showed some atrophy. The patient is able to communicate. Tolerating a diet. The patient's BUN and creatinine currently is 21/1.10. Hemoglobin hemoglobin is 8.3. DC MEDICATIONS: 1. Oxybutynin ER 10 mg p.o. b.i.d. 2. Zantac 150 mg p.o. b.i.d. 3. Aspirin 81 mg p.o. daily. 4. Tylenol 650 mg q.6h p.r.n. 5. Lipitor 40 mg q.h.s. 6. Cranberry 500 mg p.o. q.h.s. 7. Vitamin D2 83147 units p.o. on Wednesday. 8. Humalog subcu a.c. and at bedtime. 9. Nitrostat 0.4 sublingual q.5h p.r.n. 10.Actos 30 mg p.o. daily. 11.Milk of magnesia 2400 mg p.o. p.r.n. 12.Cymbalta 30 mg p.o. daily. 13.Fletcher 7.5 one tablet q.6h p.r.n. 14.DuoNeb t.i.d. 15.Lopressor 25 p.o. b.i.d. 16.Glucophage 1000 mg p.o. b.i.d. DISPOSITION: [facility]. Follow up with Dr. Denise at the [facility]. Follow up with Psychiatry in 7 -10 days. Accu- Cheks to be checked in the morning. Discussion and discharge planning more than 35 minutes. MMODL / IJN: [id number] /
--- NOTE | 2017-12-02 08:18 | CDI ---
Last Revision, July 2017 Documentation Clarification Form Date: 12/02/17 From: Abigail Banda Phone: If you have a question regarding this query, please contact Jenni Castro at [phone] between 8am and 5pm Admit Date: 11/24/2017 9:15:00 AM Patient Name: Colleen Plata Visit Number: [id number] Discharge Date: 11/30/17 ATTENTION: The Clinical Documentation Specialists (CDI) and [facility] Coding Staff appreciate your assistance in clarifying documentation. Please respond to the clarification below the line at the bottom and electronically sign. The CDI & [facility] Coding staff will review the response and follow-up if needed. Please note: Queries are made part of the Legal Health Record. If you have any questions, please contact the author of this message via ITS. Dr. Augustus Jackson Possible/questionable serotonin syndrome is documented in the [facility] consult and in some of the progress notes. Patient's Cymbalta, Abilify and Zyprexa were placed on hold. Documentation in Dr. Walker's 11/28 progress note states, consider reinitiating Cymbalta is serotonin syndrome is ruled out. Cymbalta was reinitiated on 11/30 Patient history/risk factors: Patient has a history of major depression with recurrent psychotic features anxiety and bipolar. Clinical Indicators: Altered mental status and agitation. Treatment: Patient was given Haldol and thte patient's Zyprexa, Abilify and Cymbalta were placed on hold. Consults: Documentation in the psych 11/26 progress note states, it is unclear if this was a serotonin syndrome, as the patient has been on her medication for some time unless her dose of hydrocodone had recently been increased or some other medication that does not appear on her summary has been added. In your professional opinion, can you please clarify if serotonin syndrome was? Ruled In Ruled Out Other, please specify Unable to determine unable to determine MTDD
== END 2017-11-30 19:21 | DRG 885 ==
LOC: EC 03:38 → 4MS4W 09:15 → 6ICU 18:27
PROVIDERS: ADMIT Hospitalist; ATTEND Hospitalist
DX: F33.3 Major depressive disorder, recurrent, severe with psychotic symptoms (principal); G93.41 Metabolic encephalopathy; F05 Delirium due to known physiological condition; N17.9 Acute kidney failure, unspecified; E87.2 Acidosis; M62.82 Rhabdomyolysis; N18.4 Chronic kidney disease, stage 4 (severe); Z68.42 Body mass index [BMI] 45.0-49.9, adult; E11.22 Type 2 diabetes mellitus with diabetic chronic kidney disease; E66.01 Morbid (severe) obesity due to excess calories; D50.9 Iron deficiency anemia, unspecified; F10.21 Alcohol dependence, in remission; E87.5 Hyperkalemia; E78.5 Hyperlipidemia, unspecified; R50.9 Fever, unspecified; F41.9 Anxiety disorder, unspecified; G47.33 Obstructive sleep apnea (adult) (pediatric); I12.9 Hypertensive chronic kidney disease with stage 1 through stage 4 chronic kidney disease, or unspecified chronic kidney disease; I25.10 Atherosclerotic heart disease of native coronary artery without angina pectoris; I25.2 Old myocardial infarction; J44.9 Chronic obstructive pulmonary disease, unspecified; K21.9 Gastro-esophageal reflux disease without esophagitis; K43.9 Ventral hernia without obstruction or gangrene; M47.815 Spondylosis without myelopathy or radiculopathy, thoracolumbar region; N39.3 Stress incontinence (female) (male); T50.2X5A Adverse effect of carbonic-anhydrase inhibitors, benzothiadiazides and other diuretics, initial encounter; R26.9 Unspecified abnormalities of gait and mobility; Z79.4 Long term (current) use of insulin; Z79.82 Long term (current) use of aspirin; Z79.899 Other long term (current) drug therapy; Z88.1 Allergy status to other antibiotic agents; Z86.718 Personal history of other venous thrombosis and embolism; Z85.118 Personal history of other malignant neoplasm of bronchus and lung; Z95.5 Presence of coronary angioplasty implant and graft; Z91.81 History of falling; Z90.2 Acquired absence of lung [part of]
CPT/HCPCS: 36415; 36600; 70450; 71045; 71046; 80048; 80053; 80306; 81003; 82042; 82140; 82550; 82553; 82728; 82805; 82945; 83036; 83540; 83550; 83605; 83690; 83735; 83930; 83935; 84100; 84157; 84300; 84484; 85025; 85610; 85730; 86592; 87070; 87086; 87205; 87252; 87496; 87498; 87502; 87529; 87798; 88108; 89050; 93005; 94640; 94660; 95819; 96360; 96361; 96372; 96374; 96375; 99285

== ENCOUNTER → 2020-08-15 | Outpatient (CLI) | payer MEDICARE, OTHER ==
--- NOTE | 2020-08-16 13:04 | MM ---
Reason for exam: screening (asymptomatic). Last mammogram was performed 14 years and 9 months ago. History: Patient is postmenopausal. Physical Findings: A clinical breast exam by your physician is recommended on an annual basis and results should be correlated with mammographic findings. MG 3D Screening Mammo W/Cad Bilateral CC and MLO view(s) were taken. The breast tissue is heterogeneously dense. This may lower the sensitivity of mammography. No significant changes when compared with prior studies. ASSESSMENT: Benign, BI-RAD 2 RECOMMENDATION: Routine screening mammogram of both breasts in 1 year.
== END | disposition home or self-care (01) ==
LOC: RADMAMWWP 13:39 → EEVIPCON 13:40
PROVIDERS: ATTEND General Practice
DX: Z12.31 Encounter for screening mammogram for malignant neoplasm of breast (principal); E11.9 Type 2 diabetes mellitus without complications
CPT/HCPCS: 77063; 77067

== ENCOUNTER 2021-07-23 07:50 | Day surgery (SDC) | payer MEDICARE, OTHER ==
[2021-07-22 11:36] VITALS: BMI 44.2
[~2021-07-23 07:50] MED LIST changes: +LIDOCAINE 1% (10MG/ML) FOR IV START INTRADERMA PRN
[2021-07-23 08:21] VITALS: TEMP 96.8
[2021-07-23 08:31] LABS: Glucose,Whole Blood 200 mg/dL (75-99)
[2021-07-23] MEDS ORDERED: PROPOFOL 10 MG/ML 20 ML VIAL IV ONE (08:32)
--- NOTE | 2021-07-23 08:44 | P.PCN ---
Date of Procedure: 07/23/21 Procedure(s) Performed: BRIEF HISTORY: Patient is a 71-year-old pleasant female scheduled for an elective colonoscopy as a part of evaluation of prior history of colon polyps. According to the patient her last colonoscopy was 5 years ago. PROCEDURE PERFORMED: Colonoscopy. PREOPERATIVE DIAGNOSIS: History of colon polyps. IV sedation per Anesthesia. PROCEDURE: After informed consent was obtained, the patient, was brought into the endoscopy unit. IV sedation was administered by Anesthesia under continuous monitoring. Digital rectal examination was normal. Initially the Olympus CF-160 flexible video colonoscope was then inserted in the rectum, gradually advanced into the cecum without any difficulty. Careful examination was performed as the scope was gradually being withdrawn. Ileocecal valve and the appendiceal orifice were visualized and appeared normal. Prep was excellent.. Mucosa of the cecum, ascending colon, transverse colon, descending colon, sigmoid colon, and rectum appeared normal. Scattered sigmoid diverticulosis. Retroflexion was performed in the rectum and no lesions were seen. The patient tolerated the procedure well. IMPRESSION: Normal-appearing colon from rectum to cecum with no evidence of colorectal neoplasia. Scattered sigmoid diverticulosis. RECOMMENDATIONS: Findings of this examination were discussed with the patient as well as a family.. She was advised to have a repeat screening colonoscopy in 10 years.
[2021-07-23 09:05] VITALS: BP 138/86; PULSE 77; RESP 16
== END 2021-07-23 09:37 | disposition home or self-care (01) ==
LOC: ORWHC2ENDO 07:50 → EEVIPCON 10:15
PROVIDERS: ATTEND Internal Medicine Gastroenterology
DX: K57.30 Diverticulosis of large intestine without perforation or abscess without bleeding (principal); Z86.010 Personal history of colon polyps
CPT/HCPCS: 45378; J2704

== ENCOUNTER 2022-01-25 18:22 | Inpatient (IN) | payer MEDICARE, OTHER ==
--- NOTE | 2022-01-25 19:02 | ED ---
Altered Mental Status HPI - General Chief Complaint: Altered Mental Status Stated Complaint: facial swelling Time Seen by Provider: 01/25/22 18:40 Source: patient Mode of arrival: ambulatory Limitations: no limitations - History of Present Illness Initial Comments: 71-year-old female with mental disability presents to the emergency department with altered mental status and weakness. Caretakers at bedside and helps provide history. States that the patient has been laying in bed for the past 5 days. She has not ate or drank anything. It patient reports that she feels generally weak with a poor appetite. Denies fevers. No chest pain. Does admit to a mild cough. Patient has a left-sided facial swelling which was noticed today. Denies any dental pain. Denies head trauma. No headaches or visual changes. No neck stiffness. Denies any abdominal pain. States she has had a decrease in the amount that she is urinating due to her dehydration. No difficulty swallowing. No drooling. No other alleviating, precipitating or modifying factors - Related Data Home Medications Medication Instructions Recorded Confirmed Atorvastatin [Lipitor] 40 mg PO HS 11/13/17 01/26/22 Cranberry Fruit Extract [Cranberry] 500 mg PO HS 11/13/17 01/26/22 Ergocalciferol (Vitamin D2) 50,000 unit PO Q7D 11/13/17 01/26/22 [Vitamin D2] ARIPiprazole [Abilify] 10 mg PO DAILY 07/22/21 01/26/22 DULoxetine HCL [Cymbalta] 60 mg PO BID 07/22/21 01/26/22 Docusate [Colace] 100 mg PO DAILY PRN 07/22/21 01/26/22 Loratadine [Claritin] 10 mg PO DAILY 07/22/21 01/26/22 Losartan [Cozaar] 25 mg PO DAILY 07/22/21 01/26/22 Mirabegron [Myrbetriq] 25 mg PO DAILY 07/22/21 01/26/22 Multivitamins, Thera [Multivitamin 1 tab PO DAILY 07/22/21 01/26/22 (formulary)] traZODone HCL 50 mg PO HS 07/22/21 01/26/22 Pioglitazone [Actos] 45 mg PO DAILY 01/26/22 01/26/22 allopurinoL [Zyloprim] 100 mg PO DAILY 01/26/22 01/26/22 Previous Rx's Medication Instructions Recorded Aspirin 81 mg PO DAILY #30 chew 11/16/16 Metoprolol Tartrate [Lopressor] 25 mg PO BID #0 11/30/17 metFORMIN HCL [Glucophage] 1,000 mg PO BID #1 tab 11/30/17 Acetaminophen Tab [Tylenol] 650 mg PO Q6HR PRN tab 02/03/22 Amoxic-Pot Clav 500-125 mg 1 each PO BID 5 Days #10 tab 02/03/22 [Augmentin 500-125 mg] Calcium Carbonate [Tums] 1,000 mg PO Q4HR PRN tab 02/03/22 DAPTOmycin [Cubicin] 600 mg IVPB Q24H 14 Days #14 each 02/03/22 Enoxaparin [Lovenox] 40 mg SQ DAILY each 02/03/22 Folic Acid 1 mg PO DAILY #30 tablet 02/03/22 HYDROcodone/APAP 7.5-325MG [[place] 1 each PO Q6HR PRN #4 tab 02/03/22 7.5-325] INSULIN ASPART (NovoLOG) [NovoLOG 0 unit SQ ACHS each 02/03/22 (formulary)] Lactulose [Cephulac] 30 gm PO DAILY PRN ml 02/03/22 Nystatin 100,000 Unit/ml Susp 500,000 unit PO QID ml 02/03/22 [Mycostatin Oral Susp] Pantoprazole [Protonix] 40 mg PO AC-BRKFST tab 02/03/22 Scopolamine 1 mg/72 Hr Patch 1 patch TRANSDERM Q72H patch 02/03/22 [TransDerm Scop] Sodium Chloride Tab 1 gm PO DAILY tab 02/03/22 Thiamine [Vitamin B-1] 100 mg PO DAILY #30 tablet 02/03/22 amLODIPine [Norvasc] 5 mg PO DAILY #0 02/03/22 Allergies Allergy/AdvReac Type Severity Reaction Status Date / Time cephalexin monohydrate Allergy Itching. Verified 01/25/22 18:31 [From Keflex] SWELLING Review of Systems ROS Statement: Those systems with pertinent positive or pertinent negative responses have been documented in the HPI. ROS Other: All systems not noted in ROS Statement are negative. Past Medical History Past Medical History: Asthma, Coronary Artery Disease (CAD), Cancer, Chest Pain / Angina, COPD, Diabetes Mellitus, Deep Vein Thrombosis (DVT), GERD/Reflux, Hyperlipidemia, Hypertension, Myocardial Infarction ([place]), Osteoarthritis (OA) Additional Past Medical History / Comment(s): mentally incapacitated per guardian, morbid obesity, Chronic kidney disease stage IV, chronic bronchitis, lobectomy for lung cancer, abdominal wall hernia R side, generalized weakness, gait dysfunction, falls, DJD T12 and L1, urine incontinence at times. The patient lives w/her guardian Marianela Syed who is new to this role so wasn't able to confirm health hx., gets bubble pack of meds set up by Visiting Physician- takes own meds per guardian Last Myocardial Infarction Date:: 01/20/09 History of Any Multi-Drug Resistant Organisms: VRE Date of last positivie culture/infection: 11/13/17 MDRO Source:: VRE URINE Past Surgical History: Section, Heart Catheterization, Heart Ca theterization With Stent, Orthopedic Surgery Additional Past Surgical History / Comment(s): Lung lobectomy, ORIF RIGHT ULNA/RADIUS, left rotator cuff repair, cataract removals, heel surgery r/t infection (laterality unknown), colonoscopies/ benign polypectomy, PCI/ stent x2 , guardian unable to confirm Past Anesthesia/Blood Transfusion Reactions: No Reported Reaction Date of Last Stent Placement:: 11/2016 Past Psychological History: Anxiety, Bipolar, Depression Smoking Status: Unknown if ever smoked Past Alcohol Use History: None Reported Past Drug Use History: None Reported - Past Family History Brother(s) Family Medical History: Cancer General Exam Limitations: no limitations General appearance: alert, other (fatigued) Head exam: Present: atraumatic, normocephalic Eye exam: Present: normal appearance, PERRL, EOMI. Absent: scleral icterus, c onjunctival injection, periorbital swelling ENT exam: Present: normal oropharynx, mucous membranes dry, TM's normal bilaterally, other (swelling noted to left paraotid region. No overlying redness or swelling) Neck exam: Present: normal inspection. Absent: tenderness, meningismus, lymphadenopathy Respiratory exam: Present: normal lung sounds bilaterally. Absent: respiratory distress, wheezes, rales, rhonchi, stridor Cardiovascular Exam: Present: regular rate, normal rhythm, normal heart sounds. Absent: systolic murmur, diastolic murmur, rubs, gallop, clicks Neurological exam: Present: alert, oriented X3, CN II-XII intact Psychiatric exam: Present: flat affect Skin exam: Present: warm, dry Course Vital Signs 01/25/22 01/25/22 01/25/22 18:28 21:57 23:40 Temperature 97.5 F L 97.7 F 98.7 F Pulse Rate 103 H 92 87 Respiratory 22 22 20 Rate Blood Pressure 95/54 127/75 121/74 O2 Sat by Pulse 95 97 98 Oximetry - Reevaluation(s) Reevaluation #1: Urine is resulted and one source of sepsis identified at 2148. CT resulted at 2154 demonstrate additional source of infection as a left salivary gland infection. Medical Decision Making - Medical Decision Making Upon arrival patient is placed into room 9. A thorough history and physical exam was performed. IV access is established and the patient was given a liter bolus of normal saline. Additionally placed on 130 mL/h. Laboratory studies are reviewed. White count 16.3. Sodium 131. Creatinine 3.6 C-reactive protein 35.9. Urinalysis resulted at 2149 demonstrates source of infection - [place] 182 white blood cells, moderate white blood cell clumps and many bacteria. Covid is not detected. Chest x-ray demonstrates coarse lung density consistent with pulmonary fibrosis. No heart failure. CT of the brain demonstrates cerebral atrophy, no acute intracranial abnormality. CT of the soft tissue neck without contrast due to kidney failure demonstrates asymmetric enlargement of the left parotid and left submandibular salivary gland. Patient's previous urinary samples demonstrate VRE and therefore she is given a dose of Zosyn. Recommended admission. Called and spoke with Dr. Jackson who agreed to admit the patient. We'll place nephrology and infectious disease on consult. Virginia hong's home medications not ordered as they are not up-to-date. Patient agreed to this and she was transferred to the floor in stable condition - Lab Data Result diagrams: 02/01/22 09:56 02/02/22 08:36 Lab Results 01/25/22 01/25/22 01/25/22 Range/Units 19:18 19:18 19:18 WBC 16.3 H (3.8-10.6) k/uL RBC 3.86 (3.80-5.40) m/uL Hgb 11.6 (11.4-16.0) gm/dL Hct 36.1 (34.0-46.0) % MCV 93.7 (80.0-100.0) fL MCH 30.2 (25.0-35.0) pg MCHC 32.2 (31.0-37.0) g/dL RDW 14.5 (11.5-15.5) % Plt Count 326 (150-450) k/uL MPV 7.9 Neutrophils % 93 % Lymphocytes % 3 % Monocytes % 3 % Eosinophils % 0 % Basophils % 0 % Neutrophils # 15.2 H (1.3-7.7) k/uL Lymphocytes # 0.6 L (1.0-4.8) k/uL Monocytes # 0.4 (0-1.0) k/uL Eosinophils # 0.0 (0-0.7) k/uL Basophils # 0.0 (0-0.2) k/uL VBG pH (7.31-7.41) VBG pCO2 (37-51) mmHg VBG HCO3 (24-28) mmol/L Sodium 131 L (137-145) mmol/L Potassium 3.8 (3.5-5.1) mmol/L Chloride 101 (98-107) mmol/L Carbon Dioxide 13 L (22-30) mmol/L Anion Gap 17 mmol/L BUN 90 H (7-17) mg/dL Creatinine 3.64 H (0.52-1.04) mg/dL Est GFR (CKD-EPI)AfAm 14 (>60 ml/min/1.73 sqM) Est GFR (CKD-EPI)NonAf 12 (>60 ml/min/1.73 sqM) Glucose 223 H (74-99) mg/dL Plasma Lactic Acid [place]ion 1.0 (0.7-2.0) mmol/L Calcium 8.3 L (8.4-10.2) mg/dL Total Bilirubin 0.4 (0.2-1.3) mg/dL AST 45 H (14-36) U/L ALT 29 (4-34) U/L Alkaline Phosphatase 153 H (38-126) U/L Creatine Kinase 129 (30-135) U/L Troponin I (0.000-0.034) ng/mL C-Reactive Protein 35.9 H (<1.0) mg/dL Total Protein 6.2 L (6.3-8.2) g/dL Albumin 3.4 L (3.5-5.0) g/dL Urine Color Urine Appearance (Clear) Urine pH (5.0-8.0) Ur Specific [place] (1.001-1.035) Urine Protein (Negative) Urine Glucose (UA) (Negative) Urine Ketones (Negative) Urine Blood (Negative) Urine Nitrite (Negative) Urine Bilirubin (Negative) Urine Urobilinogen (<2.0) mg/dL Ur Leukocyte Esterase (Negative) Urine RBC (0-5) /hpf Urine WBC (0-5) /hpf Urine WBC Clumps (None) /hpf Ur Squamous Epith Cells (0-4) /hpf Urine Bacteria (None) /hpf Hyaline Casts (0-2) /lpf Urine Mucus (None) /hpf Coronavirus (PCR) (Not Detectd) 01/25/22 01/25/22 01/25/22 Range/Units 19:18 19:18 19:18 WBC (3.8-10.6) k/uL RBC (3.80-5.40) m/uL Hgb (11.4-16.0) gm/dL Hct (34.0-46.0) % MCV (80.0-100.0) fL MCH (25.0-35.0) pg MCHC (31.0-37.0) g/dL RDW (11.5-15.5) % Plt Count (150-450) k/uL MPV Neutrophils % % Lymphocytes % % Monocytes % % Eosinophils % % Basophils % % Neutrophils # (1.3-7.7) k/uL Lymphocytes # (1.0-4.8) k/uL Monocytes # (0-1.0) k/uL Eosinophils # (0-0.7) k/uL Basophils # (0-0.2) k/uL VBG pH (7.31-7.41) VBG pCO2 (37-51) mmHg VBG HCO3 (24-28) mmol/L Sodium (137-145) mmol/L Potassium (3.5-5.1) mmol/L Chloride (98-107) mmol/L Carbon Dioxide (22-30) mmol/L Anion Gap mmol/L BUN (7-17) mg/dL Creatinine (0.52-1.04) mg/dL Est GFR (CKD-EPI)AfAm (>60 ml/min/1.73 sqM) Est GFR (CKD-EPI)NonAf (>60 ml/min/1.73 sqM) Glucose (74-99) mg/dL Plasma Lactic Acid Orion (0.7-2.0) mmol/L Calcium (8.4-10.2) mg/dL Total Bilirubin (0.2-1.3) mg/dL AST (14-36) U/L ALT (4-34) U/L Alkaline Phosphatase (38-126) U/L Creatine Kinase (30-135) U/L Troponin I 0.016 (0.000-0.034) ng/mL C-Reactive Protein (<1.0) mg/dL Total Protein (6.3-8.2) g/dL Albumin (3.5-5.0) g/dL Urine Color Yellow Urine Appearance Cloudy H (Clear) Urine pH 5.5 (5.0-8.0) Ur Specific [place] 1.017 (1.001-1.035) Urine Protein 1+ H (Negative) Urine Glucose (UA) Negative (Negative) Urine Ketones Negative (Negative) Urine Blood Small H (Negative) Urine Nitrite Negative (Negative) Urine Bilirubin Negative (Negative) Urine Urobilinogen <2.0 (<2.0) mg/dL Ur Leukocyte Esterase Large H (Negative) Urine RBC 11 H (0-5) /hpf Urine WBC >182 H (0-5) /hpf Urine WBC Clumps Moderate H (None) /hpf Ur Squamous Epith Cells 3 (0-4) /hpf Urine Bacteria Many H (None) /hpf Hyaline Casts 8 H (0-2) /lpf Urine Mucus Rare H (None) /hpf Coronavirus (PCR) Not Detected (Not Detectd) 01/25/22 Range/Units 20:51 WBC (3.8-10.6) k/uL RBC (3.80-5.40) m/uL Hgb (11.4-16.0) gm/dL Hct (34.0-46.0) % MCV (80.0-100.0) fL MCH (25.0-35.0) pg MCHC (31.0-37.0) g/dL RDW (11.5-15.5) % Plt Count (150-450) k/uL MPV Neutrophils % % Lymphocytes % % Monocytes % % Eosinophils % % Basophils % % Neutrophils # (1.3-7.7) k/uL Lymphocytes # (1.0-4.8) k/uL Monocytes # (0-1.0) k/uL Eosinophils # (0-0.7) k/uL Basophils # (0-0.2) k/uL VBG pH 7.12 L* (7.31-7.41) VBG pCO2 45 (37-51) mmHg VBG HCO3 14 L (24-28) mmol/L Sodium (137-145) mmol/L Potassium (3.5-5.1) mmol/L Chloride (98-107) mmol/L Carbon Dioxide (22-30) mmol/L Anion Gap mmol/L BUN (7-17) mg/dL Creatinine (0.52-1.04) mg/dL Est GFR (CKD-EPI)AfAm (>60 ml/min/1.73 sqM) Est GFR (CKD-EPI)NonAf (>60 ml/min/1.73 sqM) Glucose (74-99) mg/dL Plasma Lactic Acid [place] (0.7-2.0) mmol/L Calcium (8.4-10.2) mg/dL Total Bilirubin (0.2-1.3) mg/dL AST (14-36) U/L ALT (4-34) U/L Alkaline Phosphatase (38-126) U/L Creatine Kinase (30-135) U/L Troponin I (0.000-0.034) ng/mL C-Reactive Protein (<1.0) mg/dL Total Protein (6.3-8.2) g/dL Albumin (3.5-5.0) g/dL Urine Color Urine Appearance (Clear) Urine pH (5.0-8.0) Ur Specific [place] (1.001-1.035) Urine Protein (Negative) Urine Glucose (UA) (Negative) Urine Ketones (Negative) Urine Blood (Negative) Urine Nitrite (Negative) Urine Bilirubin (Negative) Urine Urobilinogen (<2.0) mg/dL Ur Leukocyte Esterase (Negative) Urine RBC (0-5) /hpf Urine WBC (0-5) /hpf Urine WBC Clumps (None) /hpf Ur Squamous Epith Cells (0-4) /hpf Urine Bacteria (None) /hpf Hyaline Casts (0-2) /lpf Urine Mucus (None) /hpf Coronavirus (PCR) (Not Detectd) Disposition Clinical Impression: Infection of parotid gland, UTI (urinary tract infection), Encephalopathy, Sepsis, FELIPA (acute kidney injury), Increased anion gap metabolic acidosis Disposition: ADMITTED IP TO THIS [facility] Condition: Stable Is patient prescribed a controlled substance at d/c from ED?: No Time of Disposition: 22:20 Decision to Admit Reason: Admit from EC Decision Date: 01/25/22 Decision Time: 22:20
[2022-01-25] MEDS ORDERED: SODIUM CHLORIDE 0.9% 1,000 ML IV STA (19:06)
[2022-01-25] MEDS: SODIUM CHLORIDE 0.9% 1,000 ML IV SCH (19:32)
[2022-01-25 19:39] LABS: Basophils % (A) 0 %; Eosinophils % (A) 0 %; HCT 36.1 % (34.0-46.0); HGB 11.6 gm/dL (11.4-16.0); Lymphocytes # (A) 0.6 k/uL (1.0-4.8); Lymphocytes % (A) 3 %; MCH 30.2 pg (25.0-35.0); MCHC 32.2 g/dL (31.0-37.0); MCV 93.7 fL (80.0-100.0); Mean Platelet Volume 7.9; Monocytes # (A) 0.4 k/uL (0-1.0); Monocytes % (A) 3 %; Neutrophils # (A) 15.2 k/uL (1.3-7.7); Neutrophils % (A) 93 %; Platelet Count 326 k/uL (150-450); RBC 3.86 m/uL (3.80-5.40); RDW 14.5 % (11.5-15.5); WBC 16.3 k/uL (3.8-10.6)
[2022-01-25 19:54] LABS: Albumin 3.4 g/dL (3.5-5.0); Calcium 8.3 mg/dL (8.4-10.2); Potassium 3.8 mmol/L (3.5-5.1); Total Bilirubin 0.4 mg/dL (0.2-1.3); Total Protein 6.2 g/dL (6.3-8.2)
--- NOTE | 2022-01-25 20:33 | XR ---
EXAMINATION TYPE: XR chest 2V DATE OF EXAM: 01/25/2022 COMPARISON: 11/26/2017 HISTORY: Cough and chest pain TECHNIQUE: FINDINGS: There is coarse interstitial density in the lungs. Heart size is normal. There are no hilar masses. Costophrenic angles are clear. Bony thorax appears intact. IMPRESSION: Coarse lung density consistent with pulmonary fibrosis. No heart failure seen. There is p rogression of the interstitial infiltrates compared to old exam.
[2022-01-25 20:55] LABS: C Reactive Protein 35.9 mg/dL (<1.0)
[2022-01-25 21:25] LABS: VBG PH 7.12 (7.31-7.41)
[2022-01-25 21:48] LABS: Appearance,Urine Cloudy (Clear); Bacteria,Urine Many /hpf; Bilirubin,Urine Negative (Negative); Blood,Urine Small (Negative); Color,Urine Yellow; Glucose,Urine (UA) Negative (Negative); Hyaline Casts,Urine 8 /lpf (0-2); Ketones,Urine Negative (Negative); Leukocyte Esterase,Urine Large (Negative); Mucus,Urine Rare /hpf; Nitrite,Urine Negative (Negative); PH, Urine 5.5 (5.0-8.0); Protein,Urine 1+ (Negative); RBC,Urine 11 /hpf (0-5); Specific Gravity,Urine 1.017 (1.001-1.035); Squamous Epithelial Cell,Urine 3 /hpf (0-4); Urobilinogen,Urine <2.0 mg/dL (<2.0); WBC,Urine >182 /hpf (0-5)
--- NOTE | 2022-01-25 21:50 | CT ---
EXAMINATION TYPE: CT brain wo con DATE OF EXAM: 01/25/2022 COMPARISON: 11/25/2017 HISTORY: AMS and left side cheek swelling CT DLP: combined [id number] [id number] Automated exposure control for dose reduction was used. There is cerebral cortical atrophy. There is no mass effect or midline shift. No sign of intracranial hemorrhage. Calvarium is intact. There is mucosal thickening right maxillary sinus. IMPRESSION: Cerebral atrophy. No acute intracranial abnormality. No change. There is increased right maxillary sinusitis compared to old exam.
--- NOTE | 2022-01-25 21:55 | CT ---
EXAMINATION TYPE: CT soft tissue neck wo con DATE OF EXAM: 01/25/2022 COMPARISON: None HISTORY: AMS and left side cheek swelling CT DLP: combined [id number] [id number] Automated exposure control for dose reduction was used. Images obtained from the thoracic inlet to the top of the orbits with no contrast. There is opacification right maxillary sinus. Orbital margins are intact. Nasal bone is intact. No ev idence of orbital fracture. There is some asymmetric enlargement of the left parotid gland compared t o the right. No discrete mass seen. The submandibular salivary gland on the left side is also slightl y larger than the right. There is minimal fat stranding in the subcutaneous tissues on the left anter ior neck. No evidence of any significant cervical lymphadenopathy. The epiglottis is normal. Tongue appears normal. Prevertebral soft tissues are intact. The subglottic trachea appears normal. Tonsils and adenoids appear normal. No evidence of a pharyngeal mass. Cervic al vertebra appear intact. There is some degenerative disc space narrowing at C3-4 and C5-6 with mild spurring. No compression fracture. IMPRESSION: Asymmetric enlargement of the left parotid and left submandibular salivary gland could relate to infl ammatory process. No discrete mass. There is mild subcutaneous edema also around the salivary glands on the left side. No evidence of pharyngeal mass. No evidence of an abscess. Right maxillary sinusiti s.
[2022-01-25] MEDS ORDERED: PIPERACILLIN-TAZOBACTAM 3.375 GM in SODIUM CHLORIDE 0.9% 100 ML IVPB ONE (22:15)
[2022-01-25] MEDS ORDERED: NALOXONE 0.4 MG/ML 1 ML VIAL IV PRN (22:20)
[2022-01-26] MEDS: ACETAMINOPHEN TAB 325 MG TAB PO PRN (01:24)
--- NOTE | 2022-01-26 03:18 | XR ---
EXAM: XR Abdomen, 1 View CLINICAL HISTORY: ITS.REASON XR Reason: possible bowel obstruction TECHNIQUE: Frontal supine view of the abdomen/pelvis. COMPARISON: No relevant prior studies available. FINDINGS: Gastrointestinal tract: Scattered gas collections noted predominantly in the colon. Moderate stool burden. No dilation. Bones/joints: Unremarkable. IMPRESSION: Single projection examination demonstrates a nonspecific, nonobstructive bowel gas pattern. At least moderate stool burden noted.
[2022-01-26] MEDS: ONDANSETRON 4 MG/2 ML VIAL IVP PRN ×2 (03:36→10:44)
[2022-01-26] MEDS: SODIUM CHLORIDE 0.9% 1,000 ML IV SCH (04:38)
[2022-01-26] MEDS: HYDROcodone/APAP 7.5-325MG 1 EACH TAB PO PRN ×3 (06:14→20:04)
[2022-01-26 06:30] LABS: Glucose,Whole Blood 210 mg/dL (70-110)
[2022-01-26] MEDS: INSULIN ASPART (NovoLOG) 100 UNIT/ML VIAL SQ SCH ×4 (06:37→21:12)
[2022-01-26] MEDS ORDERED: PIPERACILLIN-TAZOBACTAM 3.375 GM in SODIUM CHLORIDE 0.9% 100 ML IVPB SCH ×3 (07:00)
[2022-01-26] MEDS ORDERED: INSULIN ASPART (NovoLOG) 100 UNIT/ML VIAL SQ SCH (07:30)
[2022-01-26 09:24] LABS: Basophils % (A) 0 %; Eosinophils % (A) 0 %; HCT 33.8 % (34.0-46.0); Hypochromasia Slight; Lymphocytes # (A) 0.8 k/uL (1.0-4.8); Lymphocytes % (A) 4 %; MCH 31.1 pg (25.0-35.0); MCHC 32.7 g/dL (31.0-37.0); MCV 95.2 fL (80.0-100.0); Mean Platelet Volume 7.7; Monocytes # (A) 0.4 k/uL (0-1.0); Monocytes % (A) 2 %; Neutrophils # (A) 17.6 k/uL (1.3-7.7); Neutrophils % (A) 92 %; Platelet Count 375 k/uL (150-450); RBC 3.55 m/uL (3.80-5.40); RDW 14.7 % (11.5-15.5); WBC 19.1 k/uL (3.8-10.6)
[2022-01-26 09:42] LABS: Calcium 8.4 mg/dL (8.4-10.2); Potassium 3.6 mmol/L (3.5-5.1)
[2022-01-26] MEDS: IOPAMIDOL CONTRAST (ORAL USE) VIAL PO PRN ×2 (09:46→10:43)
--- NOTE | 2022-01-26 09:50 | P.NPCON ---
History of Present Illness - Reason for Consult acute renal failure - History of Present Illness Reason for consultation: Acute kidney injury History of present illness: Patient is a 71-year-old female seen in renal consultation for acute kidney injury. Patient's creatinine on admission yesterday was 3.64. Patient was brought to the hospital due to altered mental status and weakness. Patient is not a very reliable historian. From the chart it appears that she was brought to the hospital due to poor oral intake and generalized weakness. Patient's blood pressure was noted to be as low as 95/54 this admission but is improved to 131/73 today. Patient does admit to vomiting this morning. No fever. She was taking losartan which is currently held. Patient does have diabetes. I don't see any nonsteroidals and her home medication list. She was also taking Lasix which is currently held. Patient was noted to be quite acidotic with bicarb level of 13. She denies diarrhea. She was taking metformin outpatient. Currently receiving IV fluids. Vital signs are stable. General: Resting in bed. HEENT: Head exam is unremarkable. LUNGS: Breath sounds decreased. HEART: Rate and Rhythm are regular. ABDOMEN: Soft, no distention. EXTREMITITES: No edema. Past Medical History Past Medical History: Asthma, Coronary Artery Disease (CAD), Cancer, Chest Pain / Angina, COPD, Diabetes Mellitus, Deep Vein Thrombosis (DVT), GERD/Reflux, Hyperlipidemia, Hypertension, Myocardial Infarction ([place]), Osteoarthritis (OA) Additional Past Medical History / Comment(s): mentally incapacitated per guardian, morbid obesity, Chronic kidney disease stage IV, chronic bronchitis, lobectomy for lung cancer, abdominal wall hernia R side, generalized weakness, gait dysfunction, falls, DJD T12 and L1, urine incontinence at times. The patient lives w/her guardian Marianela Syed who is new to this role so wasn't able to confirm health hx., gets bubble pack of meds set up by Visiting Physician- takes own meds per guardian Last Myocardial Infarction Date:: 01/20/09 History of Any Multi-Drug Resistant Organisms: VRE Date of last positivie culture/infection: 11/13/17 MDRO Source:: VRE URINE Past Surgical History: Section, Heart Catheterization, Heart Catheterization With Stent, Orthopedic Surgery Additional Past Surgical History / Comment(s): Lung lobectomy, ORIF RIGHT ULNA/RADIUS, left rotator cuff repair, cataract removals, heel surgery r/t infection (laterality unknown), colonoscopies/ benign polypectomy, PCI/ stent x2, guardian unable to confirm Past Anesthesia/Blood Transfusion Reactions: No Reported Reaction Date of Last Stent Placement:: 11/2016 Past Psychological History: Anxiety, Bipolar, Depression Smoking Status: Unknown if ever smoked Past Alcohol Use History: None Reported Past Drug Use History: None Reported - Past Family History Brother(s) Family Medical History: Cancer Medications and Allergies Home Medications Medication Instructions Recorded Confirmed Type Oxybutynin Chloride [Oxybutynin 15 mg PO DAILY 01/21/16 07/23/21 History Chloride ER] Aspirin 81 mg PO DAILY #30 chew 11/16/16 07/23/21 Rx Acetaminophen Tab [Tylenol] 650 mg PO Q6H PRN 11/13/17 07/23/21 History Atorvastatin [Lipitor] 40 mg PO HS 11/13/17 07/23/21 History Cranberry Fruit Extract [Cranberry] 500 mg PO HS 11/13/17 07/23/21 History Ergocalciferol (Vitamin D2) 50,000 unit PO HOPPER 11/13/17 07/23/21 History [Vitamin D2] Nitroglycerin Sl Tabs [Nitrostat] 0.4 mg SUBLINGUAL Q5M PRN 11/13/17 07/23/21 History Pioglitazone [Actos] 30 mg PO DAILY 11/13/17 07/23/21 History Ipratropium-Albuterol Nebulize 3 ml INHALATION TID ampul.neb 11/30/17 07/23/21 Rx [Duoneb 0.5 mg-3 mg/3 ml Soln] Metoprolol Tartrate [Lopressor] 25 mg PO BID #0 11/30/17 07/23/21 Rx metFORMIN HCL [Glucophage] 1,000 mg PO BID #1 tab 11/30/17 07/23/21 Rx ARIPiprazole [Abilify] 10 mg PO DAILY 07/22/21 07/23/21 History Albuterol Sulfate [Proair Hfa] 1 - 2 puff INHALATION Q6HR PRN 07/22/21 07/23/21 History DULoxetine HCL [Cymbalta] 60 mg PO BID 07/22/21 07/23/21 History Docusate [Colace] 100 mg PO DAILY PRN 07/22/21 07/23/21 History Ferrous Sulfate [Feosol] 325 mg PO DAILY 07/22/21 07/23/21 History Furosemide [Lasix] 20 mg PO BID 07/22/21 07/23/21 History HYDROcodone/APAP 7.5-325MG [[place] 1 tab PO QID 07/22/21 07/23/21 History 7.5-325] Loperamide [Imodium] 2 mg PO QID PRN 07/22/21 07/23/21 History Loratadine [Claritin] 10 mg PO DAILY 07/22/21 07/23/21 History Losartan [Cozaar] 25 mg PO DAILY 07/22/21 07/23/21 History Mirabegron [Myrbetriq] 25 mg PO DAILY 07/22/21 07/23/21 History Multivitamins, Thera [Multivitamin 1 tab PO DAILY 07/22/21 07/23/21 History (formulary)] Pantoprazole Sodium [Protonix] 20 mg PO DAILY 07/22/21 07/23/21 History amLODIPine [Norvasc] 10 mg PO DAILY 07/22/21 07/23/21 History traZODone HCL 50 mg PO HS 07/22/21 07/23/21 History Allergies Allergy/AdvReac Type Severity Reaction Status Date / Time cephalexin monohydrate Allergy Itching. Verified 01/25/22 18:31 [From Keflex] SWELLING Physical Exam Vitals: Vital Signs Temp Pulse Pulse Resp BP BP Pulse Ox 01/26/22 08:10 97.7 F 96 19 131/73 94 L 01/26/22 04:00 97.4 F L 95 20 111/62 94 L 01/26/22 02:00 95 20 01/26/22 00:08 97.6 F 95 20 122/72 97 01/25/22 23:40 98.7 F 87 20 121/74 98 01/25/22 21:57 97.7 F 92 22 127/75 97 01/25/22 18:28 97.5 F L 103 H 22 95/54 95 Intake and Output 01/25/22 01/26/22 01/26/22 22:59 06:59 14:59 Other: Voiding Method External Catheter Weight 108.862 kg 102 kg Results - Lab Results Most recent lab results Calcium 8.3 mg/dL (8.4-10.2) L 01/25/22 19:18 01/26/22 08:36 01/25/22 19:18 Assessment and Plan Plan: Assessment: 1. Acute kidney injury mostly prerenal secondary to infection, hypotension, diuretics and losartan. Creatinine 3.64 on admission yesterday. 2. Metabolic acidosis secondary to acute kidney injury and metformin. 3. Diabetes mellitus. 4. Left parotid gland inflammation. 5. UTI. On antibiotics. 6. Hypovolemic hyponatremia. Plan: Decrease rate of normal saline to 75 mL an hour. If no improvement in acidosis, will change to bicarb drip. Continue to hold diuretics and antihypertensives. Follow-up cultures. Avoid nephrotoxins. Continue to monitor renal function and urine output. Morning labs pending. Follow-up CT results. Thank you for the consultation. I will continue to follow the patient with you during her hospital stay.
[2022-01-26 10:29] LABS: Albumin 3.2 g/dL (3.5-5.0); Magnesium 2.2 mg/dL (1.6-2.3); Total Bilirubin 0.3 mg/dL (0.2-1.3); Total Protein 5.9 g/dL (6.3-8.2)
[2022-01-26] MEDS ORDERED: ENOXAPARIN 40 MG/0.4 ML SYRINGE SQ SCH (10:45)
[2022-01-26] MEDS ORDERED: DEXTROSE 5% IN WATER 1,000 ML with SODIUM BICARB (1 MEQ/ML) 100 ML IV SCH (10:45)
[2022-01-26 11:46] LABS: Glucose,Whole Blood 256 mg/dL (70-110)
--- NOTE | 2022-01-26 11:59 | CT ---
EXAMINATION TYPE: CT abdomen pelvis wo con DATE OF EXAM: 01/26/2022 COMPARISON: CT dated 11/13/2017 HISTORY: Abdominal pain, r/o bowel obstruction CT DLP: 1168.2 mGycm Automated exposure control for dose reduction was used. TECHNIQUE: Helical acquisition of images was performed from the lung bases through the pelvis. FINDINGS: LUNG BASES: Left basal subsegmental pulmonary atelectasis and thick consolidation. This could be rela mayela to recurrent aspiration however pneumonia or other lung lesion cannot be excluded. Suspected card iomegaly and coronary arterial atherosclerotic calcifications. LIVER/GB: No definite hepatic focal lesion by this nonenhanced CT scan. Markedly distended gallbladde r. Tiny 3 mm gallbladder calculus. No pericholecystic fluid or thickened gallbladder wall. PANCREAS: Markedly fatty infiltration of the pancreas. 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 No definite splenic f ocal lesion. ADRENALS: No significant abnormality is seen. KIDNEYS: Mild atrophic changes of the kidneys. No hydroureter or hydronephrosis. FREE AIR: No free air is visualized RETROPERITONEAL ADENOPATHY: None visualized REPRODUCTIVE ORGANS: No gross uterine or adnexal mass. URINARY BLADDER: Gas is seen within the urinary bladder which could be related to recent catheteriza tion, please correlate clinically. PELVIC ADENOPATHY: No pathologically enlarged pelvic lymph nodes. OSSEOUS STRUCTURES: Old healed/healing fractures of the right lower ribs. Osteopenia. Exaggerated iron mbar lordosis. Degenerative changes of the lower lumbar spine. Suspected bilateral L5 pars interartic ularis break. Retrolisthesis of T12 over L1 with mild anterior wedging of T11 and T12 vertebral tod s, likely chronic. BOWEL: Oral contrast is seen within the inferior aspect of the esophagus which may be related to ref lux. Unremarkable stomach, duodenum and small bowel with no evidence of bowel obstruction. Colonic di verticulosis most evident involving the descending colon and sigmoid colon. Fecal loading of the righ t hemicolon. No gross colonic mass. OTHER: Scattered arterial atherosclerotic calcifications. No sizable ascites. Diffuse fatty infiltrat ion of the visualized muscles. IMPRESSION: No evidence of small bowel obstruction. Fecal loading and dilatation of the right hemicolon which may suggest constipation. Please correlate clinically. No other definite acute abnormality seen in the abdomen or the pelvis by this nonenhanced CT scan. In cidental findings and recommendations as described above.
[2022-01-26] MEDS: allopurinoL 100 MG TAB PO SCH (12:35)
[2022-01-26] MEDS: OXYBUTYNIN 15 MG TAB.ER.24 PO SCH (12:36)
[2022-01-26] MEDS: DULoxetine HCL 60 MG CAPSULE.DR PO SCH ×2 (12:36→20:01)
[2022-01-26] MEDS: PANTOPRAZOLE 40 MG TABLET PO SCH (12:36)
[2022-01-26] MEDS: ASPIRIN 81 MG PO SCH (12:36)
[2022-01-26] MEDS: ARIPiprazole 10 MG TAB PO SCH (12:38)
[2022-01-26] MEDS ORDERED: POTASSIUM CHLORIDE ER 20 MEQ TAB.ER PO STA (12:57)
--- NOTE | 2022-01-26 13:43 | P.GSCN ---
History of Present Illness Consult date: 01/26/22 History of present illness: CHIEF COMPLAINT: Altered mental status changes and weakness Reason for consult possible bowel obstruction HISTORY OF PRESENT ILLNESS: This is a 71-year-old female who presented to the hospital with altered mental status changes and weakness. Most information was obtained from patient's chart and nursing staff. Patient had been laying in bed for about 5 days. She had not been eating or drinking. She had been feeling weak. She also was noted to have swelling along the left side of her face. She denies any abdominal pain. She reports feeling nauseated. She did have one episode of vomiting last night that was brownish in color. She's had 2 prior C- sections in the past. She was found have evidence of UTI, acute kidney injury a nd a left salivary gland infection. KUB x-ray was completed due to the episode of vomiting and reported a nonspecific bowel gas pattern and moderate stool burden them. Patient reports no bowel movement for about 4 days. She has had flatus. Patient does have a history of diabetes and she is on [place] tens for chronic pain. PAST MEDICAL HISTORY: See list. PAST SURGICAL HISTORY: See list. MEDICATIONS: See list. ALLERGIES: See list. SOCIAL HISTORY: No illicit drug use. REVIEW OF SYSTEMS: CONSTITUTIONAL: Denies fever or chills. HEENT: Denies blurred vision, vision changes, or eye pain. Denies hemoptysis ENDOCRINE: Denies heat or cold intolerance. CARDIOVASCULAR: Denies chest pain or pressure. RESPIRATORY: No shortness of breath. GASTROINTESTINAL: Please refer to HPI NEURO: Denies history of seizures. PSYCH: No depression or suicidal ideation HEMATOLOGIC: Denies bleeding disorders. LYMPHATIC: The patient denies any lumps and bumps around the neck. GENITOURINARY: Denies any blood in urine or increased urinary frequency. MUSCULOSKELETAL: Denies myalgias. Denies joint swelling. Denies decreased range of motion beyond patients baseline. SKIN: Denies pruitis. Denies rash. PHYSICAL EXAM: VITAL SIGNS: Reviewed GENERAL: Well-developed in no acute distress. HEENT: Patient has swelling left parotid gland Head is atraumatic, normocephalic. Hears conversational speech. No nasal drainage. NECK: Supple without lymphadenopathy. CHEST: Non-labored respirations and equal bilateral excursions. CARDIOVASCULAR: Palpable 2+ radial pulses. ABDOMEN: Soft. Nontender. Mildly distended. MUSCULOSKELETAL: No clubbing or cyanosis. NEUROLOGIC: No focal or lateralizing signs. Cranial nerves II through XII grossly intact. PSYCH: Appropriate affect. Awake and alert SKIN: Well perfused. Good skin turgor. LABORATORY DATA: WBC 16.3 up to 19.1 Hgb 11 PLT 375 sodium 134 potassium 3.6 creatinine down to 3.64-3.14 co2 12 glucose 120 lactic acid 1.0 magnesium 2.2 IMAGING: KUB nonspecific nonobstructive bowel gas pattern. At least moderate stool burden noted. ASSESSMENT: 1. Abdominal distention with nausea and episode of vomiting. Moderate stool burden noted on x-ray 2. Constipation 3. On daily narcotics at home 4. Acute kidney injury 5. Left parotid gland infection 6. UTI 7. Hyponatremia PLAN: -Computed tomography scan abdomen and pelvis with oral contrast ordered for further evaluation of stool burden versus bowel obstruction -Further recommendations forthcoming per surgeon -Continue supportive care -Downgrade diet to clear liquids due to episode of nausea and vomiting Physician [employer] note has been reviewed by physician. Signing provider agrees with the documented findings, assessment, and plan of care. Past Medical History Past Medical History: Asthma, Coronary Artery Disease (CAD), Cancer, Chest Pain / Angina, COPD, Diabetes Mellitus, Deep Vein Thrombosis (DVT), GERD/Reflux, Hyperlipidemia, Hypertension, Myocardial Infarction ([place]), Osteoarthritis (OA) Additional Past Medical History / Comment(s): mentally incapacitated per guardian, morbid obesity, Chronic kidney disease stage IV, chronic bronchitis, lobectomy for lung cancer, abdominal wall hernia R side, generalized weakness, gait dysfunction, falls, DJD T12 and L1, urine incontinence at times. 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 URINE Past Surgical History: Section, Heart Catheterization, Heart Catheterization With Stent, Orthopedic Surgery Additional Past Surgical History / Comment(s): Lung lobectomy, ORIF RIGHT ULNA/RADIUS, left rotator cuff repair, cataract removals, heel surgery r/t infection (laterality unknown), colonoscopies/ benign polypectomy, PCI/ stent x2, guardian unable to confirm Past Anesthesia/Blood Transfusion Reactions: No Reported Reaction Date of Last Stent Placement:: 11/2016 Past Psychological History: Anxiety, Bipolar, Depression Smoking Status: Unknown if ever smoked Past Alcohol Use History: None Reported Past Drug Use History: None Reported - Past Family History Brother(s) Family Medical History: Cancer Medications and Allergies Home Medications Medication Instructions Recorded Confirmed Type Aspirin 81 mg PO DAILY #30 chew 11/16/16 01/26/22 Rx Atorvastatin [Lipitor] 40 mg PO HS 11/13/17 01/26/22 History Cranberry Fruit Extract [Cranberry] 500 mg PO HS 11/13/17 01/26/22 History Ergocalciferol (Vitamin D2) 50,000 unit PO Q7D 11/13/17 01/26/22 History [Vitamin D2] Metoprolol Tartrate [Lopressor] 25 mg PO BID #0 11/30/17 01/26/22 Rx metFORMIN HCL [Glucophage] 1,000 mg PO BID #1 tab 11/30/17 01/26/22 Rx ARIPiprazole [Abilify] 10 mg PO DAILY 07/22/21 01/26/22 History DULoxetine HCL [Cymbalta] 60 mg PO BID 07/22/21 01/26/22 History Docusate [Colace] 100 mg PO DAILY PRN 07/22/21 01/26/22 History Ferrous Sulfate [Feosol] 325 mg PO DAILY 07/22/21 01/26/22 History Furosemide [Lasix] 20 mg PO BID 07/22/21 01/26/22 History Loratadine [Claritin] 10 mg PO DAILY 07/22/21 01/26/22 History Losartan [Cozaar] 25 mg PO DAILY 07/22/21 01/26/22 History Mirabegron [Myrbetriq] 25 mg PO DAILY 07/22/21 01/26/22 History Multivitamins, Thera [Multivitamin 1 tab PO DAILY 07/22/21 01/26/22 History (formulary)] Pantoprazole Sodium [Protonix] 20 mg PO DAILY 07/22/21 01/26/22 History amLODIPine [Norvasc] 10 mg PO DAILY 07/22/21 01/26/22 History traZODone HCL 50 mg PO HS 07/22/21 01/26/22 History Acetaminophen [Tylenol Arthritis] 650 mg PO Q6H PRN 01/26/22 01/26/22 History HYDROcodone/APAP 10-325MG [[place] 1 tab PO Q6H PRN 01/26/22 01/26/22 History 10-325] Oxybutynin Chloride [Oxybutynin 15 mg PO DAILY 01/26/22 01/26/22 History Chloride ER] Pioglitazone [Actos] 45 mg PO DAILY 01/26/22 01/26/22 History allopurinoL [Zyloprim] 100 mg PO DAILY 01/26/22 01/26/22 History Allergies Allergy/AdvReac Type Severity Reaction Status Date / Time cephalexin monohydrate Allergy Itching. Verified 01/25/22 18:31 [From Keflex] SWELLING Surgical - Exam Vital Signs Temp Pulse Resp BP Pulse Ox 97.5 F L 103 H 22 95/54 95 01/25/22 18:28 01/25/22 18:28 01/25/22 18:28 01/25/22 18:28 01/25/22 18:28 Results - Labs 01/26/22 08:36 01/26/22 08:36 Abnormal Lab Results - Last 24 Hours (Table) 01/25/22 01/25/22 01/25/22 Range/Units 19:18 19:18 19:18 WBC 16.3 H (3.8-10.6) k/uL RBC (3.80-5.40) m/uL Hgb (11.4-16.0) gm/dL Hct (34.0-46.0) % Neutrophils # 15.2 H (1.3-7.7) k/uL Lymphocytes # 0.6 L (1.0-4.8) k/uL VBG pH (7.31-7.41) VBG HCO3 (24-28) mmol/L Sodium 131 L (137-145) mmol/L Carbon Dioxide 13 L (22-30) mmol/L BUN 90 H (7-17) mg/dL Creatinine 3.64 H (0.52-1.04) mg/dL Glucose 223 H (74-99) mg/dL POC Glucose (mg/dL) (70-110) mg/dL Calcium 8.3 L (8.4-10.2) mg/dL AST 45 H (14-36) U/L Alkaline Phosphatase 153 H (38-126) U/L C-Reactive Protein 35.9 H (<1.0) mg/dL Total Protein 6.2 L (6.3-8.2) g/dL Albumin 3.4 L (3.5-5.0) g/dL Urine Appearance Cloudy H (Clear) Urine Protein 1+ H (Negative) Urine Blood Small H (Negative) Ur Leukocyte Esterase Large H (Negative) Urine RBC 11 H (0-5) /hpf Urine WBC >182 H (0-5) /hpf Urine WBC Clumps Moderate H (None) /hpf Urine Bacteria Many H (None) /hpf Hyaline Casts 8 H (0-2) /lpf Urine Mucus Rare H (None) /hpf 01/25/22 01/26/22 01/26/22 Range/Units 20:51 06:28 08:36 WBC 19.1 H (3.8-10.6) k/uL RBC 3.55 L (3.80-5.40) m/uL Hgb 11.0 L (11.4-16.0) gm/dL Hct 33.8 L (34.0-46.0) % Neutrophils # 17.6 H (1.3-7.7) k/uL Lymphocytes # 0.8 L (1.0-4.8) k/uL VBG pH 7.12 L* (7.31-7.41) VBG HCO3 14 L (24-28) mmol/L Sodium (137-145) mmol/L Carbon Dioxide (22-30) mmol/L BUN (7-17) mg/dL Creatinine (0.52-1.04) mg/dL Glucose (74-99) mg/dL POC Glucose (mg/dL) 210 H (70-110) mg/dL Calcium (8.4-10.2) mg/dL AST (14-36) U/L Alkaline Phosphatase (38-126) U/L C-Reactive Protein (<1.0) mg/dL Total Protein (6.3-8.2) g/dL Albumin (3.5-5.0) g/dL Urine Appearance (Clear) Urine Protein (Negative) Urine Blood (Negative) Ur Leukocyte Esterase (Negative) Urine RBC (0-5) /hpf Urine WBC (0-5) /hpf Urine WBC Clumps (None) /hpf Urine Bacteria (None) /hpf Hyaline Casts (0-2) /lpf Urine Mucus (None) /hpf 01/26/22 Range/Units 08:36 WBC (3.8-10.6) k/uL RBC (3.80-5.40) m/uL Hgb (11.4-16.0) gm/dL Hct (34.0-46.0) % Neutrophils # (1.3-7.7) k/uL Lymphocytes # (1.0-4.8) k/uL VBG pH (7.31-7.41) VBG HCO3 (24-28) mmol/L Sodium 134 L (137-145) mmol/L Carbon Dioxide 12 L (22-30) mmol/L BUN 92 H (7-17) mg/dL Creatinine 3.14 H (0.52-1.04) mg/dL Glucose 120 H (74-99) mg/dL POC Glucose (mg/dL) (70-110) mg/dL Calcium (8.4-10.2) mg/dL AST 37 H (14-36) U/L Alkaline Phosphatase 147 H (38-126) U/L C-Reactive Protein (<1.0) mg/dL Total Protein 5.9 L (6.3-8.2) g/dL Albumin 3.2 L (3.5-5.0) g/dL Urine Appearance (Clear) Urine Protein (Negative) Urine Blood (Negative) Ur Leukocyte Esterase (Negative) Urine RBC (0-5) /hpf Urine WBC (0-5) /hpf Urine WBC Clumps (None) /hpf Urine Bacteria (None) /hpf Hyaline Casts (0-2) /lpf Urine Mucus (None) /hpf Microbiology - Last 24 Hours (Table) 01/25/22 19:18 Urine Culture - Preliminary Urine,Voided Diabetes panel 01/25/22 01/26/22 Range/Units 19:18 08:36 Sodium 131 L 134 L (137-145) mmol/L Potassium 3.8 3.6 (3.5-5.1) mmol/L Chloride 101 105 (98-107) mmol/L Carbon Dioxide 13 L 12 L (22-30) mmol/L BUN 90 H 92 H (7-17) mg/dL Creatinine 3.64 H 3.14 H (0.52-1.04) mg/dL Glucose 223 H 120 H (74-99) mg/dL Calcium 8.3 L 8.4 (8.4-10.2) mg/dL AST 45 H 37 H (14-36) U/L ALT 29 25 (4-34) U/L Alkaline Phosphatase 153 H 147 H (38-126) U/L Total Protein 6.2 L 5.9 L (6.3-8.2) g/dL Albumin 3.4 L 3.2 L (3.5-5.0) g/dL Calcium panel 01/25/22 01/26/22 Range/Units 19:18 08:36 Calcium 8.3 L 8.4 (8.4-10.2) mg/dL Albumin 3.4 L 3.2 L (3.5-5.0) g/dL Pituitary panel 01/25/22 01/26/22 Range/Units 19:18 08:36 Sodium 131 L 134 L (137-145) mmol/L Potassium 3.8 3.6 (3.5-5.1) mmol/L Chloride 101 105 (98-107) mmol/L Carbon Dioxide 13 L 12 L (22-30) mmol/L BUN 90 H 92 H (7-17) mg/dL Creatinine 3.64 H 3.14 H (0.52-1.04) mg/dL Glucose 223 H 120 H (74-99) mg/dL Calcium 8.3 L 8.4 (8.4-10.2) mg/dL Adrenal panel 01/25/22 01/26/22 Range/Units 19:18 08:36 Sodium 131 L 134 L (137-145) mmol/L Potassium 3.8 3.6 (3.5-5.1) mmol/L Chloride 101 105 (98-107) mmol/L Carbon Dioxide 13 L 12 L (22-30) mmol/L BUN 90 H 92 H (7-17) mg/dL Creatinine 3.64 H 3.14 H (0.52-1.04) mg/dL Glucose 223 H 120 H (74-99) mg/dL Calcium 8.3 L 8.4 (8.4-10.2) mg/dL Total Bilirubin 0.4 0.3 (0.2-1.3) mg/dL AST 45 H 37 H (14-36) U/L ALT 29 25 (4-34) U/L Alkaline Phosphatase 153 H 147 H (38-126) U/L Total Protein 6.2 L 5.9 L (6.3-8.2) g/dL Albumin 3.4 L 3.2 L (3.5-5.0) g/dL
[2022-01-26] MEDS: NON FORMULARY DRUG (Mirabegron [Myrbetriq] 25 MG Tablet) PO SCH (14:50)
[2022-01-26] MEDS: LACTULOSE 20 GM/30 ML CUP PO SCH ×2 (15:34→21:11)
[2022-01-26] MEDS: DEXTROSE 5% IN WATER 1,000 ML with SODIUM BICARB (1 MEQ/ML) 150 ML IV SCH (15:37)
--- NOTE | 2022-01-26 16:18 | P.HPIM ---
History of Present Illness H&P Date: 01/26/22 Chief Complaint: Weakness, lethargic This is a 71-year-old patient, presents to the ER with altered mental status and weakness. Ambulatory Nurse provided the history. Patient has been laying in bed for last 5 days. Not eating or drinking anything. Patient is feeling very weak w ith a poor appetite. No fever reported. Slight cough. Left-sided facial swelling noted. No trauma reported. Abdominal pain. Decreased urine output. Patient also due to weakness very limited historian right now. Attempting to talk. Chronic stable medical conditions include obesity, depression, hyperlipidemia, urinary incontinence, diabetes mellitus type 2,. Has a legal guardian Marianela Syed. Review of systems difficult to obtain as patient is being able to talk. Past medical history to include: Depression, hyperlipidemia, urinary stress incontinence, diabetes mellitus type 2, CAD, COPD, DVT, GERD, hyperlipidemia, mentally incapacitated, chronic kidney disease stage IV, lobectomy for lung cancer, abdominal wall hernia, Social history: Legal guardian Marianela Durants. Past history of alcohol dependence. Family history: Cancer Physical examination: VITAL SIGNS: 97.5, 103, 22, 95/54, 95% on room air upon presentation] GENERAL: BMI 45.4, laying in bed, tired a bit lethargic. EYES: Pupils equal. Conjunctiva normal. HEENT: External appearance of nose and ears normal, oral cavity dry mucous membranes. Swelling over the left parotid. Tender. NECK: JVD not raised; masses not palpable. HEART: First and second heart sounds are normal; no edema. LUNGS: Respiratory rate normal; clear to auscultation. ABDOMEN: Soft, abdominal wall hernia nontender, liver spleen not palpable, no masses palpable. PSYCH: [Able to answer some simple questions. MUSCULOSKELETAL:No Clubbing/cyanosis;muscles-grossly intact NEUROLOGICAL: Cranial nerves grossly intact; no facial asymmetry, power and sensation grossly intact. LYMPHATICS: No lymph nodes palpable in the axilla and neck INVESTIGATIONS, reviewed in the clinical context: CT abdomen pelvis: Fecal loading. That additional right hemicolon. No small bowel obstruction. January 26: White count 19.1 hemoglobin 11 platelets 375 sodium 134 percussion 3.6. 92 creatinine 3.14 albumin 5.9 Troponin I less than 0.012 Admission labs: White count 16.3 hemoglobin 9.6 sodium 131 progression 3.8. 90 creatinine 3.64 UA positive for leukoesterase, WBC, WBC clumps. COVID 19 PCR: Not detected Chest x-ray film personally reviewed by me-findings could be fibrotic. CT soft tissue neck without contrast: Asymmetric enlargement and left parotid left submandibular slightly creatinine. KUB: Personally reviewed by meet: Dilated loops of bowel. Stool present. EKG tracing personally reviewed by me: Sinus rhythm Assessment and plan: -Acute severe kidney injury possibly combination of prerenal ATN. Poor oral intake. IV fluids. Follow renal function. Hold Lasix. -Metabolic acidosis from renal failure IV bicarbonate drip -Acute metabolic encephalopathy with delirium from severe renal failure Follow clinically -Acute left parotitis likely. Precipitated by dehydration and occlusion of parotid duct. Possible secondary infection IV Zosyn. IV fluids. -Morbid obesity BMI 45.4 -Severe constipation from decreased activity Laxative -Diabetes mellitus type 2 on oral hypoglycemic Hold Glucophage. Follow Accu-Cheks. -Depression and anxiety Abilify 10 mg a day. Cymbalta 60 mg twice a day. -Essential hypertension Currently blood pressure is running relatively in the lower site from dehydration. Hold Norvasc. Cozaar. Resume Lopressor 25 mg twice a day this evening -Hyperuricemia Allopurinol 100 mg a day -GERD Protonix 20 mg daily -Chronic urinary stress incontinence Oxybutynin 50 mg a day, but be tried 25 mg a day -Chronic arthritis with pain [place] 10 1 tablet every 6 when necessary -Acute medical debility Fall precautions Hold Norvasc Cozaar. IV bicarbonate drip. IV Zosyn. SABINA. Mi catheter. Consultation to nephrology and surgery. Follow labs closely. Levemir 15 units subcu daily at bedtime. Accu-Cheks and sliding scale insulin. Past Medical History Past Medical History: Asthma, Coronary Artery Disease (CAD), Cancer, Chest Pain / Angina, COPD, Diabetes Mellitus, Deep Vein Thrombosis (DVT), GERD/Reflux, Hyperlipidemia, Hypertension, Myocardial Infarction (CA), Osteoarthritis (OA) Additional Past Medical History / Comment(s): mentally incapacitated per guardian, morbid obesity, Chronic kidney disease stage IV, chronic bronchitis, lobectomy for lung cancer, abdominal wall hernia R side, generalized weakness, gait dysfunction, falls, DJD T12 and L1, urine incontinence at times. The patient lives w/her guardian Marianela Syed who is new to this role so wasn't able to confirm health hx., gets bubble pack of meds set up by Visiting Physician- takes own meds per guardian Last Myocardial Infarction Date:: 01/20/09 History of Any Multi-Drug Resistant Organisms: VRE Date of last positivie culture/infection: 11/13/17 MDRO Source:: VRE URINE Past Surgical History: Section, Heart Catheterization, Heart Catheterization With Stent, Orthopedic Surgery Additional Past Surgical History / Comment(s): Lung lobectomy, ORIF RIGHT ULNA/RADIUS, left rotator cuff repair, cataract removals, heel surgery r/t infection (laterality unknown), colonoscopies/ benign polypectomy, PCI/ stent x2, guardian unable to confirm Past Anesthesia/Blood Transfusion Reactions: No Reported Reaction Date of Last Stent Placement:: 11/2016 Past Psychological History: Anxiety, Bipolar, Depression Smoking Status: Unknown if ever smoked Past Alcohol Use History: None Reported Past Drug Use History: None Reported - Past Family History Brother(s) Family Medical History: Cancer Medications and Allergies Home Medications Medication Instructions Recorded Confirmed Type Aspirin 81 mg PO DAILY #30 chew 11/16/16 01/26/22 Rx Atorvastatin [Lipitor] 40 mg PO HS 11/13/17 01/26/22 History Cranberry Fruit Extract [Cranberry] 500 mg PO HS 11/13/17 01/26/22 History Ergocalciferol (Vitamin D2) 50,000 unit PO Q7D 11/13/17 01/26/22 History [Vitamin D2] Metoprolol Tartrate [Lopressor] 25 mg PO BID #0 11/30/17 01/26/22 Rx metFORMIN HCL [Glucophage] 1,000 mg PO BID #1 tab 11/30/17 01/26/22 Rx ARIPiprazole [Abilify] 10 mg PO DAILY 07/22/21 01/26/22 History DULoxetine HCL [Cymbalta] 60 mg PO BID 07/22/21 01/26/22 History Docusate [Colace] 100 mg PO DAILY PRN 07/22/21 01/26/22 History Ferrous Sulfate [Feosol] 325 mg PO DAILY 07/22/21 01/26/22 History Furosemide [Lasix] 20 mg PO BID 07/22/21 01/26/22 History Loratadine [Claritin] 10 mg PO DAILY 07/22/21 01/26/22 History Losartan [Cozaar] 25 mg PO DAILY 07/22/21 01/26/22 History Mirabegron [Myrbetriq] 25 mg PO DAILY 07/22/21 01/26/22 History Multivitamins, Thera [Multivitamin 1 tab PO DAILY 07/22/21 01/26/22 History (formulary)] Pantoprazole Sodium [Protonix] 20 mg PO DAILY 07/22/21 01/26/22 History amLODIPine [Norvasc] 10 mg PO DAILY 07/22/21 01/26/22 History traZODone HCL 50 mg PO HS 07/22/21 01/26/22 History Acetaminophen [Tylenol Arthritis] 650 mg PO Q6H PRN 01/26/22 01/26/22 History HYDROcodone/APAP 10-325MG [[place] 1 tab PO Q6H PRN 01/26/22 01/26/22 History 10-325] Oxybutynin Chloride [Oxybutynin 15 mg PO DAILY 01/26/22 01/26/22 History Chloride ER] Pioglitazone [Actos] 45 mg PO DAILY 01/26/22 01/26/22 History allopurinoL [Zyloprim] 100 mg PO DAILY 01/26/22 01/26/22 History Allergies Allergy/AdvReac Type Severity Reaction Status Date / Time cephalexin monohydrate Allergy Itching. Verified 01/25/22 18:31 [From Keflex] SWELLING Physical Exam Vitals: Vital Signs Temp Pulse Pulse Resp BP BP Pulse Ox 01/26/22 08:10 97.7 F 96 19 131/73 94 L 01/26/22 04:00 97.4 F L 95 20 111/62 94 L 01/26/22 02:00 95 20 01/26/22 00:08 97.6 F 95 20 122/72 97 01/25/22 23:40 98.7 F 87 20 121/74 98 01/25/22 21:57 97.7 F 92 22 127/75 97 01/25/22 18:28 97.5 F L 103 H 22 95/54 95 Intake and Output 01/25/22 01/26/22 01/26/22 22:59 06:59 14:59 Intake Total 118 Output Total 350 Balance -232 Intake: Oral 118 Output: Urine 350 Other: Voiding Method External Catheter Weight 108.862 kg 102 kg Results CBC & Chem 7: 01/26/22 08:36 01/26/22 08:36 Labs: Abnormal Lab Results - Last 24 Hours (Table) 01/25/22 01/25/22 01/25/22 Range/Units 19:18 19:18 19:18 WBC 16.3 H (3.8-10.6) k/uL RBC (3.80-5.40) m/uL Hgb (11.4-16.0) gm/dL Hct (34.0-46.0) % Neutrophils # 15.2 H (1.3-7.7) k/uL Lymphocytes # 0.6 L (1.0-4.8) k/uL VBG pH (7.31-7.41) VBG HCO3 (24-28) mmol/L Sodium 131 L (137-145) mmol/L Carbon Dioxide 13 L (22-30) mmol/L BUN 90 H (7-17) mg/dL Creatinine 3.64 H (0.52-1.04) mg/dL Glucose 223 H (74-99) mg/dL POC Glucose (mg/dL) (70-110) mg/dL Calcium 8.3 L (8.4-10.2) mg/dL AST 45 H (14-36) U/L Alkaline Phosphatase 153 H (38-126) U/L C-Reactive Protein 35.9 H (<1.0) mg/dL Total Protein 6.2 L (6.3-8.2) g/dL Albumin 3.4 L (3.5-5.0) g/dL Urine Appearance Cloudy H (Clear) Urine Protein 1+ H (Negative) Urine Blood Small H (Negative) Ur Leukocyte Esterase Large H (Negative) Urine RBC 11 H (0-5) /hpf Urine WBC >182 H (0-5) /hpf Urine WBC Clumps Moderate H (None) /hpf Urine Bacteria Many H (None) /hpf Hyaline Casts 8 H (0-2) /lpf Urine Mucus Rare H (None) /hpf 01/25/22 01/26/22 01/26/22 Range/Units 20:51 06:28 08:36 WBC 19.1 H (3.8-10.6) k/uL RBC 3.55 L (3.80-5.40) m/uL Hgb 11.0 L (11.4-16.0) gm/dL Hct 33.8 L (34.0-46.0) % Neutrophils # 17.6 H (1.3-7.7) k/uL Lymphocytes # 0.8 L (1.0-4.8) k/uL VBG pH 7.12 L* (7.31-7.41) VBG HCO3 14 L (24-28) mmol/L Sodium (137-145) mmol/L Carbon Dioxide (22-30) mmol/L BUN (7-17) mg/dL Creatinine (0.52-1.04) mg/dL Glucose (74-99) mg/dL POC Glucose (mg/dL) 210 H (70-110) mg/dL Calcium (8.4-10.2) mg/dL AST (14-36) U/L Alkaline Phosphatase (38-126) U/L C-Reactive Protein (<1.0) mg/dL Total Protein (6.3-8.2) g/dL Albumin (3.5-5.0) g/dL Urine Appearance (Clear) Urine Protein (Negative) Urine Blood (Negative) Ur Leukocyte Esterase (Negative) Urine RBC (0-5) /hpf Urine WBC (0-5) /hpf Urine WBC Clumps (None) /hpf Urine Bacteria (None) /hpf Hyaline Casts (0-2) /lpf Urine Mucus (None) /hpf 01/26/22 Range/Units 08:36 WBC (3.8-10.6) k/uL RBC (3.80-5.40) m/uL Hgb (11.4-16.0) gm/dL Hct (34.0-46.0) % Neutrophils # (1.3-7.7) k/uL Lymphocytes # (1.0-4.8) k/uL VBG pH (7.31-7.41) VBG HCO3 (24-28) mmol/L Sodium 134 L (137-145) mmol/L Carbon Dioxide 12 L (22-30) mmol/L BUN 92 H (7-17) mg/dL Creatinine 3.14 H (0.52-1.04) mg/dL Glucose 120 H (74-99) mg/dL POC Glucose (mg/dL) (70-110) mg/dL Calcium (8.4-10.2) mg/dL AST 37 H (14-36) U/L Alkaline Phosphatase 147 H (38-126) U/L C-Reactive Protein (<1.0) mg/dL Total Protein 5.9 L (6.3-8.2) g/dL Albumin 3.2 L (3.5-5.0) g/dL Urine Appearance (Clear) Urine Protein (Negative) Urine Blood (Negative) Ur Leukocyte Esterase (Negative) Urine RBC (0-5) /hpf Urine WBC (0-5) /hpf Urine WBC Clumps (None) /hpf Urine Bacteria (None) /hpf Hyaline Casts (0-2) /lpf Urine Mucus (None) /hpf Thrombosis Risk Factor Assmnt - Choose All That Apply Other Risk Factors: Yes Each Risk Factor Represents 2 Points: Age 61-74 years Thrombosis Risk Factor Assessment Total Risk Factor Score: 2 Thrombosis Risk Factor Assessment Level: Low Risk
[2022-01-26 16:38] LABS: Glucose,Whole Blood 192 mg/dL (70-110)
[2022-01-26] MEDS: CALCIUM CARBONATE 500 MG CHEWABLE PO PRN (17:49)
[2022-01-26] MEDS: PIPERACILLIN-TAZOBACTAM 3.375 GM in SODIUM CHLORIDE 0.9% 100 ML IVPB SCH (19:58)
[2022-01-26] MEDS: METOPROLOL TARTRATE 25 MG TAB PO SCH (20:01)
[2022-01-26 20:46] LABS: Glucose,Whole Blood 216 mg/dL (70-110)
[2022-01-26] MEDS ORDERED: INSULIN DETEMIR (LEVEMIR) 100 UNIT/ML SYR SQ SCH (21:00)
[2022-01-26] MEDS ORDERED: ATORVASTATIN 40 MG TAB PO SCH (21:00)
[2022-01-26] MEDS: traZODone HCL 50 MG TAB PO SCH (21:11)
[2022-01-26] MEDS: LORazepam 0.5 MG TAB PO PRN (21:11)
--- NOTE | 2022-01-26 22:51 | P.CONS ---
History of Present Illness - Reason for Consult Consult date: 01/26/22 UTI and history of VRE Requesting physician: Donita Suarez - History of Present Illness Patient is a 71-year female presenting to the ER last evening for evaluation of mental status changes and weakness in this patient apparently has been laying in bed for 5 days before the patient be brought to the hospital patient not eat or drink anything and was complaining of generalized weakness w ith poor appetite no clear history of any fever or any chills patient denies having any nausea no vomiting no chest pain or shortness of breath occasional cough and no diarrhea patient on presentation to the hospital was afebrile and no fever have been recorded subsequently patient did have white count of 16 point 3 repeat is 19.1 with a left shift BUN and creatinine has been elevated AST was mildly elevated patient did have a positive UA COVID testing was negative patient did have a chest x-ray coarse lung density consistent with pulmonary fibrosis no heart failure is seen CT of the soft tissue of the neck asymmetric enlargement of the left parotid and left submandibular slightly enlarged,Could relate to inflammatory process no discrete mass patient did have a CT of abdominal pelvis no evidence of small bowel obstruction fecal loading and dilatation of the right hemicolon which may suggest constipation infectious disease was consulted for further management of antibiotic therapy currently being treated with Zosyn most information has been obtained from review of the chart talking nursing staff at the patient self evaluated good historian Review of Systems Positive point has been mentioned in the HPI rest of the systems are negative Past Medical History Past Medical History: Asthma, Coronary Artery Disease (CAD), Cancer, Chest Pain / Angina, COPD, Diabetes Mellitus, Deep Vein Thrombosis (DVT), GERD/Reflux, Hyperlipidemia, Hypertension, Myocardial Infarction (CA), Osteoarthritis (OA) Additional Past Medical History / Comment(s): mentally incapacitated per guardian, morbid obesity, Chronic kidney disease stage IV, chronic bronchitis, lobectomy for lung cancer, abdominal wall hernia R side, generalized weakness, gait dysfunction, falls, DJD T12 and L1, urine incontinence at times. 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 URINE Past Surgical History: Section, Heart Catheterization, Heart Catheterization With Stent, Orthopedic Surgery Additional Past Surgical History / Comment(s): Lung lobectomy, ORIF RIGHT ULNA/RADIUS, left rotator cuff repair, cataract removals, heel surgery r/t infection (laterality unknown), colonoscopies/ benign polypectomy, PCI/ stent x2, guardian unable to confirm Past Anesthesia/Blood Transfusion Reactions: No Reported Reaction Date of Last Stent Placement:: 11/2016 Past Psychological History: Anxiety, Bipolar, Depression Smoking Status: Unknown if ever smoked Past Alcohol Use History: None Reported Past Drug Use History: None Reported - Past Family History Brother(s) Family Medical History: Cancer Medications and Allergies Home Medications Medication Instructions Recorded Confirmed Type Aspirin 81 mg PO DAILY #30 chew 11/16/16 01/26/22 Rx Atorvastatin [Lipitor] 40 mg PO HS 11/13/17 01/26/22 History Cranberry Fruit Extract [Cranberry] 500 mg PO HS 11/13/17 01/26/22 History Ergocalciferol (Vitamin D2) 50,000 unit PO Q7D 11/13/17 01/26/22 History [Vitamin D2] Metoprolol Tartrate [Lopressor] 25 mg PO BID #0 11/30/17 01/26/22 Rx metFORMIN HCL [Glucophage] 1,000 mg PO BID #1 tab 11/30/17 01/26/22 Rx ARIPiprazole [Abilify] 10 mg PO DAILY 07/22/21 01/26/22 History DULoxetine HCL [Cymbalta] 60 mg PO BID 07/22/21 01/26/22 History Docusate [Colace] 100 mg PO DAILY PRN 07/22/21 01/26/22 History Ferrous Sulfate [Feosol] 325 mg PO DAILY 07/22/21 01/26/22 History Furosemide [Lasix] 20 mg PO BID 07/22/21 01/26/22 History Loratadine [Claritin] 10 mg PO DAILY 07/22/21 01/26/22 History Losartan [Cozaar] 25 mg PO DAILY 07/22/21 01/26/22 History Mirabegron [Myrbetriq] 25 mg PO DAILY 07/22/21 01/26/22 History Multivitamins, Thera [Multivitamin 1 tab PO DAILY 07/22/21 01/26/22 History (formulary)] Pantoprazole Sodium [Protonix] 20 mg PO DAILY 07/22/21 01/26/22 History amLODIPine [Norvasc] 10 mg PO DAILY 07/22/21 01/26/22 History traZODone HCL 50 mg PO HS 07/22/21 01/26/22 History Acetaminophen [Tylenol Arthritis] 650 mg PO Q6H PRN 01/26/22 01/26/22 History HYDROcodone/APAP 10-325MG [[place] 1 tab PO Q6H PRN 01/26/22 01/26/22 History 10-325] Oxybutynin Chloride [Oxybutynin 15 mg PO DAILY 01/26/22 01/26/22 History Chloride ER] Pioglitazone [Actos] 45 mg PO DAILY 01/26/22 01/26/22 History allopurinoL [Zyloprim] 100 mg PO DAILY 01/26/22 01/26/22 History Allergies Allergy/AdvReac Type Severity Reaction Status Date / Time cephalexin monohydrate Allergy Itching. Verified 01/25/22 18:31 [From Keflex] SWELLING Physical Exam Vitals: Vital Signs Temp Pulse Pulse Resp BP BP Pulse Ox 01/26/22 08:10 97.7 F 96 19 131/73 94 L 01/26/22 04:00 97.4 F L 95 20 111/62 94 L 01/26/22 02:00 95 20 01/26/22 00:08 97.6 F 95 20 122/72 97 01/25/22 23:40 98.7 F 87 20 121/74 98 01/25/22 21:57 97.7 F 92 22 127/75 97 01/25/22 18:28 97.5 F L 103 H 22 95/54 95 Intake and Output 01/25/22 01/26/22 01/26/22 22:59 06:59 14:59 Intake Total 118 Output Total 350 Balance -232 Intake: Oral 118 Output: Urine 350 Other: Voiding Method External Catheter Weight 108.862 kg 102 kg GENERAL DESCRIPTION: An elderly female lying in bed, no distress. No tachypnea or accessory muscle of respiration use. HEENT: Shows Pallor , no scleral icterus. Oral mucous membrane is dry. No pharyngeal erythema or thrush NECK: Trachea central, no thyromegaly. LUNGS: Unlabored breathing. Decreased pulse on the base. No wheeze or crackle. HEART: S1, S2, regular rate and rhythm. No loud murmur ABDOMEN: Soft, no tenderness , guarding or rigidity, no organomegaly EXTREMITIES: No edema of feet. SKIN: No rash, no masses palpable. NEUROLOGICAL: The patient is awake, alert, oriented x3, mood and affect normal. Results CBC & Chem 7: 01/26/22 08:36 01/26/22 08:36 Labs: Abnormal Lab Results - Last 24 Hours (Table) 01/25/22 01/25/22 01/25/22 Range/Units 19:18 19:18 19:18 WBC 16.3 H (3.8-10.6) k/uL RBC (3.80-5.40) m/uL Hgb (11.4-16.0) gm/dL Hct (34.0-46.0) % Neutrophils # 15.2 H (1.3-7.7) k/uL Lymphocytes # 0.6 L (1.0-4.8) k/uL VBG pH (7.31-7.41) VBG HCO3 (24-28) mmol/L Sodium 131 L (137-145) mmol/L Carbon Dioxide 13 L (22-30) mmol/L BUN 90 H (7-17) mg/dL Creatinine 3.64 H (0.52-1.04) mg/dL Glucose 223 H (74-99) mg/dL POC Glucose (mg/dL) (70-110) mg/dL Calcium 8.3 L (8.4-10.2) mg/dL AST 45 H (14-36) U/L Alkaline Phosphatase 153 H (38-126) U/L C-Reactive Protein 35.9 H (<1.0) mg/dL Total Protein 6.2 L (6.3-8.2) g/dL Albumin 3.4 L (3.5-5.0) g/dL Urine Appearance Cloudy H (Clear) Urine Protein 1+ H (Negative) Urine Blood Small H (Negative) Ur Leukocyte Esterase Large H (Negative) Urine RBC 11 H (0-5) /hpf Urine WBC >182 H (0-5) /hpf Urine WBC Clumps Moderate H (None) /hpf Urine Bacteria Many H (None) /hpf Hyaline Casts 8 H (0-2) /lpf Urine Mucus Rare H (None) /hpf 01/25/22 01/26/22 01/26/22 Range/Units 20:51 06:28 08:36 WBC 19.1 H (3.8-10.6) k/uL RBC 3.55 L (3.80-5.40) m/uL Hgb 11.0 L (11.4-16.0) gm/dL Hct 33.8 L (34.0-46.0) % Neutrophils # 17.6 H (1.3-7.7) k/uL Lymphocytes # 0.8 L (1.0-4.8) k/uL VBG pH 7.12 L* (7.31-7.41) VBG HCO3 14 L (24-28) mmol/L Sodium (137-145) mmol/L Carbon Dioxide (22-30) mmol/L BUN (7-17) mg/dL Creatinine (0.52-1.04) mg/dL Glucose (74-99) mg/dL POC Glucose (mg/dL) 210 H (70-110) mg/dL Calcium (8.4-10.2) mg/dL AST (14-36) U/L Alkaline Phosphatase (38-126) U/L C-Reactive Protein (<1.0) mg/dL Total Protein (6.3-8.2) g/dL Albumin (3.5-5.0) g/dL Urine Appearance (Clear) Urine Protein (Negative) Urine Blood (Negative) Ur Leukocyte Esterase (Negative) Urine RBC (0-5) /hpf Urine WBC (0-5) /hpf Urine WBC Clumps (None) /hpf Urine Bacteria (None) /hpf Hyaline Casts (0-2) /lpf Urine Mucus (None) /hpf 01/26/22 Range/Units 08:36 WBC (3.8-10.6) k/uL RBC (3.80-5.40) m/uL Hgb (11.4-16.0) gm/dL Hct (34.0-46.0) % Neutrophils # (1.3-7.7) k/uL Lymphocytes # (1.0-4.8) k/uL VBG pH (7.31-7.41) VBG HCO3 (24-28) mmol/L Sodium 134 L (137-145) mmol/L Carbon Dioxide 12 L (22-30) mmol/L BUN 92 H (7-17) mg/dL Creatinine 3.14 H (0.52-1.04) mg/dL Glucose 120 H (74-99) mg/dL POC Glucose (mg/dL) (70-110) mg/dL Calcium (8.4-10.2) mg/dL AST (14-36) U/L Alkaline Phosphatase (38-126) U/L C-Reactive Protein (<1.0) mg/dL Total Protein (6.3-8.2) g/dL Albumin (3.5-5.0) g/dL Urine Appearance (Clear) Urine Protein (Negative) Urine Blood (Negative) Ur Leukocyte Esterase (Negative) Urine RBC (0-5) /hpf Urine WBC (0-5) /hpf Urine WBC Clumps (None) /hpf Urine Bacteria (None) /hpf Hyaline Casts (0-2) /lpf Urine Mucus (None) /hpf Assessment and Plan Plan: 1patient presented to hospital with weakness mental status changes likely multifactorial in this patient did have a significant positive UA likely concerning for a symptomatic UTI and evidence of asymmetric enlargement of the left parotid gland concerning for possible parotitis. 2renal insufficiency and high risk of nephrotoxicity from vancomycin. 3positive blood culture questionably skin derrick or related to her UTI versus parotitis. 4blood cultures will be repeated document clearance of bacteremia. 5continue with Zosyn however add daptomycin to cover for the gram-positive. We will follow on clinical condition and cultures to further adjust medication if needed Thank you for this consultation will follow this patient along with you
[2022-01-27] MEDS: PANTOPRAZOLE 40 MG TABLET PO SCH (04:21)
[2022-01-27 06:04] LABS: Glucose,Whole Blood 164 mg/dL (70-110)
[2022-01-27] MEDS: HYDROcodone/APAP 7.5-325MG 1 EACH TAB PO PRN ×2 (06:37→13:24)
[2022-01-27] MEDS: INSULIN ASPART (NovoLOG) 100 UNIT/ML VIAL SQ SCH ×4 (06:38→20:33)
[2022-01-27] MEDS: DEXTROSE 5% IN WATER 1,000 ML with SODIUM BICARB (1 MEQ/ML) 150 ML IV SCH ×2 (06:54→13:24)
[2022-01-27] MEDS: NON FORMULARY DRUG (Mirabegron [Myrbetriq] 25 MG Tablet) PO SCH (08:32)
--- NOTE | 2022-01-27 09:02 | P.PN ---
Subjective Patient is seen in follow-up for acute kidney injury. Resting in bed. Patient is not a very reliable historian. Oral intake is poor. On clear liquid diet. Hemodynamically stable. Blood culture positive for staph aureus. Vital signs are stable. General: Awake. No acute distress. HEENT: Head exam is unremarkable. LUNGS: Breath sounds decreased. HEART: Rate and Rhythm are regular. ABDOMEN: Soft, no distention. EXTREMITITES: No edema. Objective - Vital Signs Vital signs: Vital Signs Temp 97.7 F 01/27/22 04:00 Pulse 77 01/27/22 04:00 Resp 18 01/27/22 04:00 BP 114/64 01/27/22 04:00 Pulse Ox 96 01/27/22 04:00 FiO2 Intake & Output 01/26/22 01/27/22 01/27/22 18:59 06:59 18:59 Intake Total 736 910 Output Total 450 Balance 286 910 Weight 102 kg 97.5 kg Intake: Intake, IV Titration 550 Amount DAPTOmycin 400 mg In 50 Sodium Chloride 0.9% 50 ml @ 100 mls/hr IVPB Q48H [facility] Rx#:[id number] Dextrose 5% in Water 1, 500 000 ml @ 100 mls/hr IV . [id number] [facility] with Sodium Bicarb (1 Meq/ml) 150 ml Rx#:[id number] Oral 736 360 Output: Urine 450 Other: Voiding Method External Catheter External Catheter - Labs CBC & Chem 7: 01/26/22 08:36 01/26/22 08:36 Labs: Abnormal Lab Results - Last 24 Hours (Table) 01/26/22 01/26/22 01/26/22 Range/Units 08:36 08:36 11:43 WBC 19.1 H (3.8-10.6) k/uL RBC 3.55 L (3.80-5.40) m/uL Hgb 11.0 L (11.4-16.0) gm/dL Hct 33.8 L (34.0-46.0) % Neutrophils # 17.6 H (1.3-7.7) k/uL Lymphocytes # 0.8 L (1.0-4.8) k/uL Sodium 134 L (137-145) mmol/L Carbon Dioxide 12 L (22-30) mmol/L BUN 92 H (7-17) mg/dL Creatinine 3.14 H (0.52-1.04) mg/dL Glucose 120 H (74-99) mg/dL POC Glucose (mg/dL) 256 H (70-110) mg/dL AST 37 H (14-36) U/L Alkaline Phosphatase 147 H (38-126) U/L Total Protein 5.9 L (6.3-8.2) g/dL Albumin 3.2 L (3.5-5.0) g/dL 01/26/22 01/26/22 01/27/22 Range/Units 16:31 20:44 06:03 WBC (3.8-10.6) k/uL RBC (3.80-5.40) m/uL Hgb (11.4-16.0) gm/dL Hct (34.0-46.0) % Neutrophils # (1.3-7.7) k/uL Lymphocytes # (1.0-4.8) k/uL Sodium (137-145) mmol/L Carbon Dioxide (22-30) mmol/L BUN (7-17) mg/dL Creatinine (0.52-1.04) mg/dL Glucose (74-99) mg/dL POC Glucose (mg/dL) 192 H 216 H 164 H (70-110) mg/dL AST (14-36) U/L Alkaline Phosphatase (38-126) U/L Total Protein (6.3-8.2) g/dL Albumin (3.5-5.0) g/dL Microbiology - Last 24 Hours (Table) 01/26/22 16:27 Blood Culture Gram Stain - Preliminary Blood Blood Culture - Preliminary Staphylococcus aureus 01/25/22 22:45 Blood Culture - Final Blood 01/25/22 19:18 Urine Culture - Preliminary Urine,Voided Assessment and Plan Plan: Assessment: 1. Acute kidney injury mostly prerenal secondary to infection, hypotension, diuretics and losartan. Creatinine 3.64 on admission - 3.14 yesterday. No hydronephrosis noted on CAT scan. 2. Metabolic acidosis secondary to acute kidney injury and metformin. On IV bicarbonate. 3. Diabetes mellitus. 4. Left parotid gland inflammation. 5. UTI. On antibiotics. Blood culture positive for staph aureus. 6. Hypovolemic hyponatremia. Improved with IV hydration. Plan: Maintain bicarb drip. Continue to hold diuretics and antihypertensives. Avoid nephrotoxins. Continue to monitor renal function and urine output. Morning labs pending.
[2022-01-27] MEDS: DULoxetine HCL 60 MG CAPSULE.DR PO SCH ×2 (09:30→23:34)
[2022-01-27] MEDS: ARIPiprazole 10 MG TAB PO SCH (09:30)
[2022-01-27] MEDS: OXYBUTYNIN 15 MG TAB.ER.24 PO SCH (09:30)
[2022-01-27] MEDS: ASPIRIN 81 MG PO SCH (09:30)
[2022-01-27] MEDS: METOPROLOL TARTRATE 25 MG TAB PO SCH ×2 (09:30→23:34)
[2022-01-27] MEDS: allopurinoL 100 MG TAB PO SCH (09:31)
[2022-01-27] MEDS: ENOXAPARIN 30 MG/0.3 ML SYRINGE SQ SCH (09:31)
[2022-01-27] MEDS: LACTULOSE 20 GM/30 ML CUP PO SCH ×3 (09:31→23:34)
[2022-01-27] MEDS: PIPERACILLIN-TAZOBACTAM 3.375 GM in SODIUM CHLORIDE 0.9% 100 ML IVPB SCH ×2 (09:32→20:11)
[2022-01-27 09:33] LABS: Calcium 8.5 mg/dL (8.4-10.2); Potassium 3.7 mmol/L (3.5-5.1); Total Bilirubin 0.3 mg/dL (0.2-1.3); Total Protein 5.6 g/dL (6.3-8.2)
[2022-01-27 09:46] LABS: C Reactive Protein 24.5 mg/dL (<1.0)
[2022-01-27 11:37] LABS: Glucose,Whole Blood 230 mg/dL (70-110)
--- NOTE | 2022-01-27 12:51 | P.PN ---
Subjective Progress Note Date: 01/27/22 CHIEF COMPLAINT: Constipation HISTORY OF PRESENT ILLNESS: This is a 71-year-old female who presented to the hospital with altered mental status and weakness. Surgical service is following in regards to her constipation. She was started on lactulose. Patient did have 2 large semisolid bowel movements. Patient appears more confused today. She is tolerating clear liquids. She did receive her [place] pill this morning for her chronic pain. Denies any abdominal pain. No nausea or vomiting reported. Afebrile. Sodium is 128 potassium 3.7 CO2 16 creatinine 3.12. 1 positive blood culture with staph aureus. Urine culture gram-negative bacilli. PHYSICAL EXAM: VITAL SIGNS: Reviewed GENERAL: Well-developed in no acute distress. HEENT: No sclera icterus. Extraocular movements grossly intact. Moist buccal mucosa. Head is atraumatic, normocephalic. Hears conversational speech. No nasal drainag e. NECK: Supple without lymphadenopathy. CHEST: Non-labored respirations and equal bilateral excursions. CARDIOVASCULAR: Palpable 2+ radial pulses. ABDOMEN: Soft. Nondistended. Nontender. MUSCULOSKELETAL: No clubbing or cyanosis. NEUROLOGIC: No focal or lateralizing signs. Cranial nerves II through XII grossly intact. PSYCH: Confused SKIN: Well perfused. Good skin turgor. ASSESSMENT: 1. Abdominal distention with nausea and episode of vomiting likely secondary to constipation 2. Constipation 3. Daily narcotic use 4. Acute kidney injury 5. Left parotid gland infection 6. UTI 7. Hyponatremia 8. Metabolic encephalopathy PLAN: -Continue the lactulose -Advance diet as tolerated -Continue supportive care -Antibiotics per ID service for her infectious process -Hyponatremia and acute kidney injury management per nephrology Physician Manager Community Development note has been reviewed by physician. Signing provider agrees with the documented findings, assessment, and plan of care. Objective - Vital Signs Vital signs: Vital Signs Temp 97.7 F 01/27/22 04:00 Pulse 81 01/27/22 10:46 Resp 18 01/27/22 04:00 BP 111/67 01/27/22 10:46 Pulse Ox 96 01/27/22 10:46 FiO2 Intake & Output 01/26/22 01/27/22 01/27/22 18:59 06:59 18:59 Intake Total 736 910 Output Total 450 Balance 286 910 Weight 102 kg 97.5 kg Intake: Intake, IV Titration 550 Amount DAPTOmycin 400 mg In 50 Sodium Chloride 0.9% 50 ml @ 100 mls/hr IVPB Q48H [facility] Rx#:[id number] Dextrose 5% in Water 1, 500 000 ml @ 100 mls/hr IV . [id number] [facility] with Sodium Bicarb (1 Meq/ml) 150 ml Rx#:[id number] Oral 736 360 Output: Urine 450 Other: Voiding Method External Catheter External Catheter # Bowel Movements 1 - Labs CBC & Chem 7: 01/26/22 08:36 01/27/22 08:52 Labs: Abnormal Lab Results - Last 24 Hours (Table) 01/26/22 01/26/22 01/27/22 Range/Units 16:31 20:44 06:03 Sodium (137-145) mmol/L Carbon Dioxide (22-30) mmol/L BUN (7-17) mg/dL Creatinine (0.52-1.04) mg/dL Glucose (74-99) mg/dL POC Glucose (mg/dL) 192 H 216 H 164 H (70-110) mg/dL Alkaline Phosphatase (38-126) U/L C-Reactive Protein (<1.0) mg/dL Total Protein (6.3-8.2) g/dL Albumin (3.5-5.0) g/dL 01/27/22 01/27/22 Range/Units 08:52 11:36 Sodium 128 L (137-145) mmol/L Carbon Dioxide 16 L (22-30) mmol/L BUN 90 H (7-17) mg/dL Creatinine 3.12 H (0.52-1.04) mg/dL Glucose 225 H (74-99) mg/dL POC Glucose (mg/dL) 230 H (70-110) mg/dL Alkaline Phosphatase 160 H (38-126) U/L C-Reactive Protein 24.5 H (<1.0) mg/dL Total Protein 5.6 L (6.3-8.2) g/dL Albumin 3.0 L (3.5-5.0) g/dL Microbiology - Last 24 Hours (Table) 01/25/22 19:18 Urine Culture - Preliminary Urine,Voided Gram Neg Bacilli 01/26/22 16:27 Blood Culture Gram Stain - Preliminary Blood Blood Culture - Preliminary Staphylococcus aureus 01/25/22 22:45 Blood Culture - Final Blood
[2022-01-27] MEDS: LORazepam 0.5 MG TAB PO PRN (13:25)
--- NOTE | 2022-01-27 13:29 | P.PN ---
Progress Note - Text Progress Note Date: 01/27/22 Chief Complaint: Weakness, lethargic This is a 71-year-old patient, presents to the ER with altered mental status and weakness. Final Installer Inspector provided the history. Patient has been laying in bed for last 5 days. Not eating or drinking anything. Patient is feeling very weak with a poor appetite. No fever reported. Slight cough. Left-sided facial swelling noted. No trauma reported. Abdominal pain. Decreased urine output. Patient also due to weakness very limited historian right now. Attempting to talk. Chronic stable medical conditions include obesity, depression, hyperlipidemia, urinary incontinence, diabetes mellitus type 2,. Has a legal guardian Marianela Syed. Admitted with acute severe kidney injury, metabolic acidosis, metabolic encephalopathy with delirium, acute left parotitis. Started IV bicarbonate dose. [facility] Cozaar was held. IV Zosyn. January 27: Patient more awake today. Mouth dry. Trouble with IV access. Answers some questions. A bit agitated. Patient was reassured. Midline ordered. Bicarbonate drip to continue. Slight improvement in creatinine. Active Medications Acetaminophen (Acetaminophen Tab 325 Mg Tab) 650 mg PO Q6HR PRN PRN Reason: Mild Pain or Fever > 100.5 Last Admin: 01/26/22 01:24 Dose: 650 mg Hydrocodone Bitart/Acetaminophen (Hydrocodone/Apap 7.5-325mg 1 Each Tab) 1 each PO Q6HR PRN PRN Reason: Pain Last Admin: 01/27/22 06:37 Dose: 1 each Allopurinol (Allopurinol 100 Mg Tab) 100 mg PO DAILY [facility] Last Admin: 01/27/22 09:31 Dose: 100 mg Aripiprazole (Aripiprazole 10 Mg Tab) 10 mg PO DAILY [facility] Last Admin: 01/27/22 09:30 Dose: 10 mg Aspirin (Aspirin 81 Mg) 81 mg PO DAILY [facility] Last Admin: 01/27/22 09:30 Dose: 81 mg Calcium Carbonate/Glycine (Calcium Carbonate 500 Mg Chewable) 1,000 mg PO Q4HR PRN PRN Reason: Dyspepsia Last Admin: 01/26/22 17:49 Dose: 1,000 mg Duloxetine HCl (Duloxetine Hcl 60 Mg Capsule.Dr) 60 mg PO BID [facility] Last Admin: 01/27/22 09:30 Dose: 60 mg Enoxaparin Sodium (Enoxaparin 30 Mg/0.3 Ml Syringe) 30 mg SQ DAILY [facility] Last Admin: 01/27/22 09:31 Dose: 30 mg Piperacillin Sod/Tazobactam (Sod 3.375 gm/ Sodium Chloride) 100 mls @ 25 mls/hr IVPB Q12HR [facility]; Protocol Last Admin: 01/27/22 09:32 Dose: 25 mls/hr Sodium Bicarbonate 150 ml/ (Dextrose/Water) 1,150 mls @ 100 mls/hr IV .[id number] [facility] Last Admin: 01/27/22 06:54 Dose: Not Given Daptomycin 400 mg/ Sodium (Chloride) 50 mls @ 100 mls/hr IVPB Q48H [facility]; Prot ocol Last Admin: 01/27/22 00:50 Dose: 100 mls/hr Insulin Aspart (Insulin Aspart (Novolog) 100 Unit/Ml Vial) 0 unit SQ ACHS [facility]; Protocol Last Admin: 01/27/22 06:38 Dose: 1 unit Insulin Detemir (Insulin Detemir (Levemir) 100 Unit/Ml Syr) 15 unit SQ HS [facility] Last Admin: 01/26/22 21:12 Dose: Not Given Lactulose (Lactulose 20 Gm/30 Ml Cup) 30 gm PO TID [facility] Last Admin: 01/27/22 09:31 Dose: 30 gm Lorazepam (Lorazepam 0.5 Mg Tab) 0.5 mg PO Q6HR PRN PRN Reason: Anxiety Last Admin: 01/26/22 21:11 Dose: 0.5 mg Metoprolol Tartrate (Metoprolol Tartrate 25 Mg Tab) 25 mg PO BID [facility] Last Admin: 01/27/22 09:30 Dose: 25 mg Naloxone HCl (Naloxone 0.4 Mg/Ml 1 Ml Vial) 0.2 mg IV Q2M PRN PRN Reason: Opioid Reversal Non-Formulary Medication (Mirabegron [Myrbetriq]) 25 mg PO DAILY [facility] Last Admin: 01/27/22 08:32 Dose: Not Given Ondansetron HCl (Ondansetron 4 Mg/2 Ml Vial) 4 mg IVP Q6HR PRN PRN Reason: Nausea And Vomiting Last Admin: 01/26/22 10:44 Dose: 4 mg Oxybutynin Chloride (Oxybutynin 15 Mg Tab.Er.24) 15 mg PO DAILY [facility] Last Admin: 01/27/22 09:30 Dose: 15 mg Pantoprazole Sodium (Pantoprazole 40 Mg Tablet) 40 mg PO [id number]-[id number] [facility] Last Admin: 01/27/22 04:21 Dose: Not Given Trazodone HCl (Trazodone Hcl 50 Mg Tab) 50 mg PO [facility] Last Admin: 01/26/22 21:11 Dose: 50 mg Past medical history to include: Depression, hyperlipidemia, urinary stress incontinence, diabetes mellitus type 2, CAD, COPD, DVT, GERD, hyperlipidemia, mentally incapacitated, chronic kidney disease stage IV, lobectomy for lung cancer, abdominal wall hernia, Social history: Legal guardian Marianela Syed. Past history of alcohol dependence. Family history: Cancer Physical examination: VITAL SIGNS: 97.7, 77, 18, 140s/64, 96% on 4 L GENERAL: Laying in bed, more awake, tired EYES: Pupils equal. Conjunctiva normal. HEENT: External appearance of nose and ears normal, oral cavity dry mucous membranes. Swelling over the left parotid. Tender. NECK: JVD not raised; masses not palpable. HEART: First and second heart sounds are normal; no edema. LUNGS: Respiratory rate normal; clear to auscultation. ABDOMEN: Soft, abdominal wall hernia nontender, liver spleen not palpable, no masses palpable. PSYCH: Answering simple questions better today.. MUSCULOSKELETAL:No Clubbing/cyanosis;muscles-grossly intact NEUROLOGICAL: Cranial nerves grossly intact; no facial asymmetry, moving all 4 limbs INVESTIGATIONS, reviewed in the clinical context: January 27: Sodium 128 progression 3.7 BUN 90 creatinine 3.[address] abdomen pelvis: Fecal loading. That additional right hemicolon. No small bowel obstruction. January 26: White count 19.1 hemoglobin 11 platelets 375 sodium 134 percussion 3.6. 92 creatinine 3.14 albumin 5.9 Troponin I less than 0.012 Admission labs: White count 16.3 hemoglobin 9.6 sodium 131 progression 3.8. 90 creatinine 3.64 UA positive for leukoesterase, WBC, WBC clumps. COVID 19 PCR: Not detected Chest x-ray film personally reviewed by me-findings could be fibrotic. CT soft tissue neck without contrast: Asymmetric enlargement and left parotid left submandibular slightly creatinine. KUB: Personally reviewed by meet: Dilated loops of bowel. Stool present. EKG tracing personally reviewed by me: Sinus rhythm Assessment and plan: -Acute severe kidney injury possibly combination of prerenal ATN. Poor oral intake.: Slow to respond IV fluids. Follow renal function. Hold Lasix. -Metabolic acidosis from renal failure: Slow to respond IV bicarbonate drip -Acute metabolic encephalopathy with delirium from severe renal failure: Some improvement Follow clinically -Acute left parotitis Precipitated by dehydration and occlusion of parotid duct. Possible secondary infection IV Zosyn. IV fluids. -Morbid obesity BMI 45.4 -Severe constipation from decreased activity Laxative -Diabetes mellitus type 2 on oral hypoglycemic Hold Glucophage. Follow Accu-Cheks. Increase Levemir 20 units subcu daily at bedtime. -Depression and anxiety Abilify 10 mg a day. Cymbalta 60 mg twice a day. -Essential hypertension Currently blood pressure is running relatively in the lower site from dehydration. Hold Norvasc. Cozaar. Lopressor 25 mg twice a day -Hyperuricemia Allopurinol 100 mg a day -GERD Protonix 20 mg daily -Chronic urinary stress incontinence Oxybutynin 50 mg a day, but be tried 25 mg a day -Chronic arthritis with pain [place] 10 1 tablet every 6 when necessary -Acute medical debility Fall precautions Continue IV bicarbonate drip. IV Zosyn. SABINA. Mi catheter. Follow labs closely. Increase Levemir 20 units subcu daily at bedtime. Accu-Cheks and sliding scale insulin. Discussed with nurse at the bedside.
[2022-01-27] MEDS: LORazepam 2 MG/ML INJ IV PRN (13:50)
[2022-01-27 16:36] LABS: Glucose,Whole Blood 151 mg/dL (70-110)
[2022-01-27 20:34] LABS: Glucose,Whole Blood 157 mg/dL (70-110)
[2022-01-27] MEDS ORDERED: INSULIN DETEMIR (LEVEMIR) 100 UNIT/ML SYR SQ SCH (21:00)
[2022-01-27] MEDS: traZODone HCL 50 MG TAB PO SCH (23:34)
[2022-01-28] MEDS: LORazepam 2 MG/ML INJ IV PRN (01:36)
[2022-01-28] MEDS: DEXTROSE 5% IN WATER 1,000 ML with SODIUM BICARB (1 MEQ/ML) 150 ML IV SCH ×2 (02:22→14:31)
[2022-01-28 06:22] LABS: Glucose,Whole Blood 208 mg/dL (70-110)
[2022-01-28] MEDS: INSULIN ASPART (NovoLOG) 100 UNIT/ML VIAL SQ SCH ×4 (06:25→21:25)
[2022-01-28] MEDS: PANTOPRAZOLE 40 MG TABLET PO SCH (06:25)
--- NOTE | 2022-01-28 06:48 | P.PN ---
Subjective Progress Note Date: 01/27/22 Principal diagnosis: UTI and bacteremia Patient is a 71-year-old female presenting to the hospital for evaluation of mental status changes and weakness and decision did have a positive UA concerning for a symptomatic UTI also have a large parotid gland on the left side sent for parotitis and did have evidence of Staphylococcus aureus bacteremia. On today's evaluation 01/27/2022, patient is afebrile patient remains to be pleasantly confused and could not provide any history no vomiting diarrhea or any other changes reported by the nursing staff Objective - Vital Signs Vital signs: Vital Signs Temp 97.7 F 01/27/22 04:00 Pulse 77 01/27/22 04:00 Resp 18 01/27/22 04:00 BP 114/64 01/27/22 04:00 Pulse Ox 96 01/27/22 04:00 FiO2 Intake & Output 01/26/22 01/27/22 01/27/22 18:59 06:59 18:59 Intake Total 736 910 Output Total 450 Balance 286 910 Weight 102 kg 97.5 kg Intake: Intake, IV Titration 550 Amount DAPTOmycin 400 mg In 50 Sodium Chloride 0.9% 50 ml @ 100 mls/hr IVPB Q48H [facility] Rx#:[id number] Dextrose 5% in Water 1, 500 000 ml @ 100 mls/hr IV . [id number] [facility] with Sodium Bicarb (1 Meq/ml) 150 ml Rx#:[id number] Oral 736 360 Output: Urine 450 Other: Voiding Method External Catheter External Catheter - Exam GENERAL DESCRIPTION: An elderly female lying in bed in no distress RESPIRATORY SYSTEM: Unlabored breathing , decreased breath sounds at bases HEART: S1 S2 regular rate and rhythm , ABDOMEN: Soft , no tenderness EXTREMITIES: No edema feet - Labs CBC & Chem 7: 01/26/22 08:36 01/27/22 08:52 Labs: Abnormal Lab Results - Last 24 Hours (Table) 01/26/22 01/26/22 01/26/22 Range/Units 08:36 11:43 16:31 Sodium (137-145) mmol/L Carbon Dioxide (22-30) mmol/L BUN (7-17) mg/dL Creatinine (0.52-1.04) mg/dL Glucose (74-99) mg/dL POC Glucose (mg/dL) 256 H 192 H (70-110) mg/dL AST 37 H (14-36) U/L Alkaline Phosphatase 147 H (38-126) U/L C-Reactive Protein (<1.0) mg/dL Total Protein 5.9 L (6.3-8.2) g/dL Albumin 3.2 L (3.5-5.0) g/dL 01/26/22 01/27/22 01/27/22 Range/Units 20:44 06:03 08:52 Sodium 128 L (137-145) mmol/L Carbon Dioxide 16 L (22-30) mmol/L BUN 90 H (7-17) mg/dL Creatinine 3.12 H (0.52-1.04) mg/dL Glucose 225 H (74-99) mg/dL POC Glucose (mg/dL) 216 H 164 H (70-110) mg/dL AST (14-36) U/L Alkaline Phosphatase 160 H (38-126) U/L C-Reactive Protein 24.5 H (<1.0) mg/dL Total Protein 5.6 L (6.3-8.2) g/dL Albumin 3.0 L (3.5-5.0) g/dL Microbiology - Last 24 Hours (Table) 01/26/22 16:27 Blood Culture Gram Stain - Preliminary Blood Blood Culture - Preliminary Staphylococcus aureus 01/25/22 22:45 Blood Culture - Final Blood 01/25/22 19:18 Urine Culture - Preliminary Urine,Voided Assessment and Plan (1) Infection of parotid gland Current Visit: Yes Status: Acute Code(s): K11.20 - SIALOADENITIS, UNSPECIFIED SNOMED Code(s): 647386015 (2) UTI (urinary tract infection) Current Visit: Yes Status: Acute Code(s): N39.0 - URINARY TRACT INFECTION, SITE NOT SPECIFIED SNOMED Code(s): 54872021 Plan: 1patient presented to hospital with weakness mental status changes likely multifactorial in this patient did have a significant positive UA likely concerning for a symptomatic UTI and evidence of asymmetric enlargement of the left parotid gland concerning for possible parotitis. 2renal insufficiency and high risk of nephrotoxicity from vancomycin. 3 Staphylococcus aureus bacteremia possibly related to parotitis, waiting for ID and sensitivity, blood cultures repeated document clearance of bacteremia. 4patient to continue with Zosyn and daptomycin while waiting for the cultures to finalize Time with Patient: Less than 30
[2022-01-28 07:57] LABS: Basophils % (A) 0 %; Eosinophils # (A) 0.3 k/uL (0-0.7); Eosinophils % (A) 2 %; HCT 31.9 % (34.0-46.0); HGB 10.2 gm/dL (11.4-16.0); Hypochromasia Moderate; Lymphocytes % (A) 7 %; MCH 30.7 pg (25.0-35.0); MCHC 31.8 g/dL (31.0-37.0); MCV 96.7 fL (80.0-100.0); Mean Platelet Volume 7.7; Monocytes # (A) 0.6 k/uL (0-1.0); Monocytes % (A) 4 %; Neutrophils # (A) 13.5 k/uL (1.3-7.7); Neutrophils % (A) 86 %; Platelet Count 306 k/uL (150-450); RDW 14.9 % (11.5-15.5); WBC 15.7 k/uL (3.8-10.6)
[2022-01-28 08:09] LABS: Calcium 8.3 mg/dL (8.4-10.2); Magnesium 2.1 mg/dL (1.6-2.3); Potassium 3.6 mmol/L (3.5-5.1)
[2022-01-28] MEDS: NON FORMULARY DRUG (Mirabegron [Myrbetriq] 25 MG Tablet) PO SCH (08:34)
[2022-01-28] MEDS ORDERED: SODIUM BICARB 8.4% 50 ML SYR (1 MEQ/ML) IV STA (09:14)
[2022-01-28] MEDS ORDERED: POTASSIUM CHLORIDE ER 20 MEQ TAB.ER PO STA (09:17)
--- NOTE | 2022-01-28 09:18 | P.PN ---
Subjective Patient is seen in follow-up for acute kidney injury. Resting in bed. Patient is not a very reliable historian. Oral intake is poor. Hemodynamically stable. Blood culture positive for staph aureus and urine culture positive for gram- negative bacilli. Creatinine stable at 3.15 today. Remains acidotic. Bicarb level XV today. Vital signs are stable. General: Awake. No acute distress. HEENT: Head exam is unremarkable. LUNGS: Breath sounds decreased. HEART: Rate and Rhythm are regular. ABDOMEN: Soft, no distention. EXTREMITITES: No edema. Objective - Vital Signs Vital signs: Vital Signs Temp 96.9 F L 01/28/22 03:49 Pulse 88 01/28/22 03:49 Resp 20 01/28/22 03:49 BP 110/67 01/28/22 03:49 Pulse Ox 93 L 01/28/22 03:49 FiO2 Intake & Output 01/27/22 01/28/22 01/28/22 18:59 06:59 18:59 Intake Total 0 620 Output Total 1 Balance 0 619 Intake: Intake, IV Titration 500 Amount Dextrose 5% in Water 1, 400 000 ml @ 100 mls/hr IV . [id number] [facility] with Sodium Bicarb (1 Meq/ml) 150 ml Rx#:[id number] Piperacillin-Tazobactam 3 100 .375 gm In Sodium Chloride 0.9% 100 ml @ 25 mls/hr IVPB Q12HR [facility] Rx #:[id number] Oral 0 120 Output: Stool 1 Other: Voiding Method External Catheter External Catheter # Voids 2 # Bowel Movements 1 - Labs CBC & Chem 7: 01/28/22 06:56 01/28/22 06:56 Labs: Abnormal Lab Results - Last 24 Hours (Table) 01/27/22 01/27/22 01/27/22 Range/Units 08:52 08:52 11:36 WBC (3.8-10.6) k/uL RBC (3.80-5.40) m/uL Hgb (11.4-16.0) gm/dL Hct (34.0-46.0) % Neutrophils # (1.3-7.7) k/uL Sodium 128 L (137-145) mmol/L Carbon Dioxide 16 L (22-30) mmol/L BUN 90 H (7-17) mg/dL Creatinine 3.12 H (0.52-1.04) mg/dL Glucose 225 H (74-99) mg/dL POC Glucose (mg/dL) 230 H (70-110) mg/dL Calcium (8.4-10.2) mg/dL Alkaline Phosphatase 160 H (38-126) U/L C-Reactive Protein 24.5 H (<1.0) mg/dL Total Protein 5.6 L (6.3-8.2) g/dL Albumin 3.0 L (3.5-5.0) g/dL Procalcitonin >100.00 H (0.02-0.09) ng/mL 01/27/22 01/27/22 01/28/22 Range/Units 16:33 20:30 06:09 WBC (3.8-10.6) k/uL RBC (3.80-5.40) m/uL Hgb (11.4-16.0) gm/dL Hct (34.0-46.0) % Neutrophils # (1.3-7.7) k/uL Sodium (137-145) mmol/L Carbon Dioxide (22-30) mmol/L BUN (7-17) mg/dL Creatinine (0.52-1.04) mg/dL Glucose (74-99) mg/dL POC Glucose (mg/dL) 151 H 157 H 208 H (70-110) mg/dL Calcium (8.4-10.2) mg/dL Alkaline Phosphatase (38-126) U/L C-Reactive Protein (<1.0) mg/dL Total Protein (6.3-8.2) g/dL Albumin (3.5-5.0) g/dL Procalcitonin (0.02-0.09) ng/mL 01/28/22 01/28/22 Range/Units 06:56 06:56 WBC 15.7 H (3.8-10.6) k/uL RBC 3.30 L (3.80-5.40) m/uL Hgb 10.2 L (11.4-16.0) gm/dL Hct 31.9 L (34.0-46.0) % Neutrophils # 13.5 H (1.3-7.7) k/uL Sodium 127 L (137-145) mmol/L Carbon Dioxide 15 L (22-30) mmol/L BUN 94 H (7-17) mg/dL Creatinine 3.15 H (0.52-1.04) mg/dL Glucose 161 H (74-99) mg/dL POC Glucose (mg/dL) (70-110) mg/dL Calcium 8.3 L (8.4-10.2) mg/dL Alkaline Phosphatase (38-126) U/L C-Reactive Protein (<1.0) mg/dL Total Protein (6.3-8.2) g/dL Albumin (3.5-5.0) g/dL Procalcitonin (0.02-0.09) ng/mL Microbiology - Last 24 Hours (Table) 01/27/22 08:52 Blood Culture - Final Blood 01/25/22 19:18 Urine Culture - Preliminary Urine,Voided Gram Neg Bacilli 01/26/22 16:27 Blood Culture Gram Stain - Preliminary Blood Blood Culture - Preliminary Staphylococcus aureus Assessment and Plan Plan: Assessment: 1. Acute kidney injury mostly prerenal secondary to infection, hypotension, diuretics and losartan. Creatinine 3.64 on admission - bladstable at 3.15 today. No hydronephrosis noted on CAT scan. 2. Metabolic acidosis secondary to acute kidney injury and metformin. On IV bicarbonate. 3. Diabetes mellitus. 4. Left parotid gland inflammation. 5. UTI. On antibiotics. Blood culture positive for staph aureus. Urine culture positive for gram-negative bacilli. 6. Hyponatremia secondary to acute kidney injury. Also component of poor solute intake. 7. Hypokalemia from poor intake. Magnesium normal. Plan: Maintain bicarb drip. Maintain fluid restriction. Add sodium chloride tab once daily. Diet also advanced by surgery. Continue to hold diuretics and antihypertensives. Avoid nephrotoxins. Continue to monitor renal function and urine output. 2 A of sodium bicarb IV push today. Check serum and urine osmolality and urine sodium level. Check TSH. Strict I's and O's. Check bladder scan to rule out urinary retention. Replace potassium. Check cortisol level.
[2022-01-28] MEDS: DULoxetine HCL 60 MG CAPSULE.DR PO SCH ×2 (09:26→21:25)
[2022-01-28] MEDS: allopurinoL 100 MG TAB PO SCH (09:26)
[2022-01-28] MEDS: METOPROLOL TARTRATE 25 MG TAB PO SCH ×2 (09:26→21:25)
[2022-01-28] MEDS: ASPIRIN 81 MG PO SCH (09:27)
[2022-01-28] MEDS: ARIPiprazole 10 MG TAB PO SCH (09:27)
[2022-01-28] MEDS: PIPERACILLIN-TAZOBACTAM 3.375 GM in SODIUM CHLORIDE 0.9% 100 ML IVPB SCH ×2 (09:30→21:29)
[2022-01-28] MEDS: ENOXAPARIN 30 MG/0.3 ML SYRINGE SQ SCH (09:34)
[2022-01-28] MEDS: LACTULOSE 20 GM/30 ML CUP PO SCH ×2 (09:35→16:23)
[2022-01-28] MEDS: OXYBUTYNIN 15 MG TAB.ER.24 PO SCH (10:28)
[2022-01-28] MEDS: SODIUM CHLORIDE TAB 1 GM TAB PO SCH (10:55)
[2022-01-28 11:31] LABS: Glucose,Whole Blood 198 mg/dL (70-110)
--- NOTE | 2022-01-28 14:06 | P.PN ---
Subjective Progress Note Date: 01/28/22 CHIEF COMPLAINT: Constipation HISTORY OF PRESENT ILLNESS: This is a 71-year-old female who presented to the hospital with altered mental status and weakness. Surgical service is following in regards to her constipation. Patient has had 3 moderate sized semisolid bowel movements yesterday. No nausea or vomiting reported. Decreased oral intake. Afebrile. WBC 19.115.7 hemoglobin 10.2 platelets 306 sodium 127 potassium 3.6 creatinine 3.15. One blood culture with staph aureus repeat blood cultures negative. Urine culture E. coli. PHYSICAL EXAM: VITAL SIGNS: Reviewed GENERAL: Well-developed in no acute distress. HEENT: No sclera icterus. Extraocular movements grossly intact. Moist buccal m ucosa. Head is atraumatic, normocephalic. Hears conversational speech. No nasal drainage. NECK: Supple without lymphadenopathy. CHEST: Non-labored respirations and equal bilateral excursions. CARDIOVASCULAR: Palpable 2+ radial pulses. ABDOMEN: Soft. Nondistended. Nontender. MUSCULOSKELETAL: No clubbing or cyanosis. NEUROLOGIC: No focal or lateralizing signs. Cranial nerves II through XII grossly intact. PSYCH: Confused SKIN: Well perfused. Good skin turgor. ASSESSMENT: 1. Abdominal distention with nausea and episode of vomiting likely secondary to constipation 2. Constipation 3. Daily narcotic use 4. Acute kidney injury 5. Left parotid gland infection 6. UTI 7. Hyponatremia 8. Metabolic encephalopathy PLAN: -Check abdominal x-ray for further evaluation of constipation -Continue the lactulose -Advance diet as tolerated -Continue supportive care -Antibiotics per ID service for her infectious process -Hyponatremia and acute kidney injury management per nephrology Physician Home Care Assistant note has been reviewed by physician. Signing provider agrees with the documented findings, assessment, and plan of care. Objective - Vital Signs Vital signs: Vital Signs Temp 97.5 F L 01/28/22 08:34 Pulse 77 01/28/22 13:12 Resp 20 01/28/22 11:40 BP 120/74 01/28/22 11:40 Pulse Ox 97 01/28/22 11:40 FiO2 Intake & Output 01/27/22 01/28/22 01/28/22 18:59 06:59 18:59 Intake Total 0 620 240 Output Total 1 400 Balance 0 619 -160 Intake: Intake, IV Titration 500 Amount Dextrose 5% in Water 1, 400 000 ml @ 100 mls/hr IV . [id number] VIOLETTA with Sodium Bicarb (1 Meq/ml) 150 ml Rx#:[id number] Piperacillin-Tazobactam 3 100 .375 gm In Sodium Chloride 0.9% 100 ml @ 25 mls/hr IVPB Q12HR VIOLETTA Rx #:[id number] Oral 0 120 240 Output: Urine 400 Stool 1 Other: Voiding Method External Catheter External Catheter External Catheter # Voids 2 # Bowel Movements 1 - Labs CBC & Chem 7: 01/28/22 06:56 01/28/22 06:56 Labs: Abnormal Lab Results - Last 24 Hours (Table) 01/27/22 01/27/22 01/27/22 Range/Units 08:52 16:33 20:30 WBC (3.8-10.6) k/uL RBC (3.80-5.40) m/uL Hgb (11.4-16.0) gm/dL Hct (34.0-46.0) % Neutrophils # (1.3-7.7) k/uL Sodium (137-145) mmol/L Carbon Dioxide (22-30) mmol/L BUN (7-17) mg/dL Creatinine (0.52-1.04) mg/dL Glucose (74-99) mg/dL POC Glucose (mg/dL) 151 H 157 H (70-110) mg/dL Calcium (8.4-10.2) mg/dL Procalcitonin >100.00 H (0.02-0.09) ng/mL 01/28/22 01/28/22 01/28/22 Range/Units 06:09 06:56 06:56 WBC 15.7 H (3.8-10.6) k/uL RBC 3.30 L (3.80-5.40) m/uL Hgb 10.2 L (11.4-16.0) gm/dL Hct 31.9 L (34.0-46.0) % Neutrophils # 13.5 H (1.3-7.7) k/uL Sodium 127 L (137-145) mmol/L Carbon Dioxide 15 L (22-30) mmol/L BUN 94 H (7-17) mg/dL Creatinine 3.15 H (0.52-1.04) mg/dL Glucose 161 H (74-99) mg/dL POC Glucose (mg/dL) 208 H (70-110) mg/dL Calcium 8.3 L (8.4-10.2) mg/dL Procalcitonin (0.02-0.09) ng/mL 01/28/22 Range/Units 11:30 WBC (3.8-10.6) k/uL RBC (3.80-5.40) m/uL Hgb (11.4-16.0) gm/dL Hct (34.0-46.0) % Neutrophils # (1.3-7.7) k/uL Sodium (137-145) mmol/L Carbon Dioxide (22-30) mmol/L BUN (7-17) mg/dL Creatinine (0.52-1.04) mg/dL Glucose (74-99) mg/dL POC Glucose (mg/dL) 198 H (70-110) mg/dL Calcium (8.4-10.2) mg/dL Procalcitonin (0.02-0.09) ng/mL Microbiology - Last 24 Hours (Table) 01/27/22 08:52 Blood Culture Gram Stain - Preliminary Blood 01/25/22 19:18 Urine Culture - Final Urine,Voided Escherichia coli 01/27/22 08:52 Blood Culture - Final Blood 01/26/22 16:27 Blood Culture Gram Stain - Preliminary Blood Blood Culture - Preliminary Staphylococcus aureus
[2022-01-28] MEDS: HYDROcodone/APAP 7.5-325MG 1 EACH TAB PO PRN (14:36)
--- NOTE | 2022-01-28 15:25 | CDI ---
Documentation Clarification Form Date: 01/28/2022 02:53:27 PM From: Donna Camacho RN CCDS Admit Date: 01/25/2022 10:20:00 PM Patient Name: Colleen Plata Visit Number: [id number] Discharge Date: ATTENTION: The Clinical Documentation Specialists (CDI) and [facility] Coding Staff appreciate your assistance in clarifying documentation. Please respond to the clarification below the line at the bottom and electronically sign. The CDI & [facility] Coding staff will review the response and follow-up if needed. Please note: Queries are made part of the Legal Health Record. If you have any questions, please contact the author of this message via ITS. Dr. Augustus Jackson Sepsis is documented ED Note, 01/25 but is not noted in subsequent documentation. Clarification is requested. History/Risk Factors: 71-year-old female presents to the ED with altered mental status and weakness. Medical History: COPD, Asthma, DM, CKD IV and urinary stress incontinence. 01/26, H&P. Clinical Indicators: VSS: 01/25 B/P 95/54; HR 103; Temp 97.5 F Oral; RR 22; SpO2 95% room air Labs: 01/25 Wbc 16.3; Neutrophils 15.2 Urine Culture: 01/25 Escherichia coli Blood Culture Gram Stain: 01/26 Staphylococcus aureus Repeat Blood Culture Gram Stain: 01/27 Gram Positive Cocci In Groups ID Consult: 01/26 Positive blood culture questionably skin derrick related to her UTI versus parotitis. Blood cultures will be repeated document clearance of bacteremia. ID PN: 01/27 Staphylococcus aureus bacteremia possibly related to parotitis, waiting for ID and sensitivity, blood cultures repeated document clearance of bacteremia. Treatment: 01/25 0.9NS 1L bolus x 1; 01/27 current Daptomycin 400mg IVPB Q48H; 01/25 Zosyn 3.375mg IVPB x 1; 01/26 Zoysn 3.375mg IVPB x1; 01/26 current Zosyn 3.375mg IVPB Q12H. ID Consult: Above. Please clarify if the Sepsis is: [ ] Sepsis confirmed, remains under treatment [ ] Sepsis confirmed, resolved [ ] Sepsis ruled out [ ] Other condition, please specify [ ] Unable to determine SIRS Criteria: 2 or more of the following may indicate SIRS -Temperature < 96.8F (36C) or > 101.0F (38.3C) -Heart Rate > 90 bpm -Respiratory Rate > 20 breaths/min or PaCO2 < 32 mmHg -White Blood Cell Count > 12,000 or < 4,000 cells/mm3 or > 10% bands Possible sepsis, POA undergoing treatment (Template Last Reviewed: September 2020) TARIQD
--- NOTE | 2022-01-28 15:56 | XR ---
EXAMINATION TYPE: XR abdomen 2V DATE OF EXAM: 01/28/2022 COMPARISON: 01/26/2022 HISTORY: Constipation TECHNIQUE: One view abdominal series FINDINGS: Exam limited by motion artifact. Degenerative change of the spine. Calcification the right pelvis lik mainor vascular. Arthropathy of the hips. Cannot exclude basilar atelectasis or infiltrate. Lung bases a re clear. IMPRESSION: 1. Limited exam due to motion artifact demonstrates a nonspecific abdomen. Prominent small bowel loop s could been the basis of ileus or enteritis. There is improvement with regard to the amount of retai bruna debris within the colon relative to the prior exam. Obstructive pattern not excluded.
[2022-01-28 16:21] LABS: Glucose,Whole Blood 237 mg/dL (70-110)
--- NOTE | 2022-01-28 17:15 | P.PN ---
Progress Note - Text Progress Note Date: 01/28/22 Chief Complaint: Weakness, lethargic This is a 71-year-old patient, presents to the ER with altered mental status and weakness. Home Teaching Grades 9 Thru 12 Teacher provided the history. Patient has been laying in bed for last 5 days. Not eating or drinking anything. Patient is feeling very weak with a poor appetite. No fever reported. Slight cough. Left-sided facial swelling noted. No trauma reported. Abdominal pain. Decreased urine output. Patient also due to weakness very limited historian right now. Attempting to talk. Chronic stable medical conditions include obesity, depression, hyperlipidemia, urinary incontinence, diabetes mellitus type 2,. Has a legal guardian Marianela Syed. Admitted with acute severe kidney injury, metabolic acidosis, metabolic encephalopathy with delirium, acute left parotitis. Started IV bicarbonate dose. [facility] Cozaar was held. IV Zosyn. January 27: Patient more awake today. Mouth dry. Trouble with IV access. Answers some questions. A bit agitated. Patient was reassured. Midline ordered. Bicarbonate drip to continue. Slight improvement in creatinine. January 28: Midline was placed yesterday. Getting IV daptomycin. D5W. IV Zosyn. 8 lunch with assistance. Answering questions. Occasionally confused Active Medications Acetaminophen (Acetaminophen Tab 325 Mg Tab) 650 mg PO Q6HR PRN PRN Reason: Mild Pain or Fever > 100.5 Last Admin: 01/26/22 01:24 Dose: 650 mg Hydrocodone Bitart/Acetaminophen (Hydrocodone/Apap 7.5-325mg 1 Each Tab) 1 each PO Q6HR PRN PRN Reason: Pain Last Admin: 01/28/22 14:36 Dose: 1 each Allopurinol (Allopurinol 100 Mg Tab) 100 mg PO DAILY [facility] Last Admin: 01/28/22 09:26 Dose: 100 mg Aripiprazole (Aripiprazole 10 Mg Tab) 10 mg PO DAILY [facility] Last Admin: 01/28/22 09:27 Dose: 10 mg Aspirin (Aspirin 81 Mg) 81 mg PO DAILY [facility] Last Admin: 01/28/22 09:27 Dose: 81 mg Calcium Carbonate/Glycine (Calcium Carbonate 500 Mg Chewable) 1,000 mg PO Q4HR PRN PRN Reason: Dyspepsia Last Admin: 01/26/22 17:49 Dose: 1,000 mg Duloxetine HCl (Duloxetine Hcl 60 Mg Capsule.Dr) 60 mg PO BID [facility] Last Admin: 01/28/22 09:26 Dose: 60 mg Enoxaparin Sodium (Enoxaparin 30 Mg/0.3 Ml Syringe) 30 mg SQ DAILY [facility] Last Admin: 01/28/22 09:34 Dose: 30 mg Piperacillin Sod/Tazobactam (Sod 3.375 gm/ Sodium Chloride) 100 mls @ 25 mls/hr IVPB Q12HR [facility]; Protocol Last Admin: 01/28/22 09:30 Dose: 25 mls/hr Sodium Bicarbonate 150 ml/ (Dextrose/Water) 1,150 mls @ 100 mls/hr IV .[id number] [facility] Last Admin: 01/28/22 14:31 Dose: 100 mls/hr Daptomycin 400 mg/ Sodium (Chloride) 50 mls @ 100 mls/hr IVPB Q48H [facility]; Protocol Last Admin: 01/27/22 00:50 Dose: 100 mls/hr Insulin Aspart (Insulin Aspart (Novolog) 100 Unit/Ml Vial) 0 unit SQ ACHS [facility]; Protocol Last Admin: 01/28/22 16:34 Dose: 3 unit Insulin Detemir (Insulin Detemir (Levemir) 100 Unit/Ml Syr) 20 unit SQ HS [facility] Last Admin: 01/27/22 20:33 Dose: Not Given Lorazepam (Lorazepam 0.5 Mg Tab) 0.5 mg PO Q6HR PRN PRN Reason: Anxiety Last Admin: 01/27/22 13:25 Dose: 0.5 mg Lorazepam (Lorazepam 2 Mg/Ml Inj) 0.5 mg IV Q6HR PRN PRN Reason: Anxiety Last Admin: 01/28/22 01:36 Dose: 0.5 mg Metoprolol Tartrate (Metoprolol Tartrate 25 Mg Tab) 25 mg PO BID [facility] Last Admin: 01/28/22 09:26 Dose: 25 mg Naloxone HCl (Naloxone 0.4 Mg/Ml 1 Ml Vial) 0.2 mg IV Q2M PRN PRN Reason: Opioid Reversal Non-Formulary Medication (Mirabegron [Myrbetriq]) 25 mg PO DAILY [facility] Last Admin: 01/28/22 08:34 Dose: Not Given Ondansetron HCl (Ondansetron 4 Mg/2 Ml Vial) 4 mg IVP Q6HR PRN PRN Reason: Nausea And Vomiting Last Admin: 01/26/22 10:44 Dose: 4 mg Pantoprazole Sodium (Pantoprazole 40 Mg Tablet) 40 mg PO AC-BRKFST [facility] Last Admin: 01/28/22 06:25 Dose: Not Given Sodium Chloride (Sodium Chloride Tab 1 Gm Tab) 1 gm PO DAILY [facility] Last Admin: 01/28/22 10:55 Dose: 1 gm Trazodone HCl (Trazodone Hcl 50 Mg Tab) 50 mg PO HS [facility] Last Admin: 01/27/22 23:34 Dose: Not Given Past medical history to include: Depression, hyperlipidemia, urinary stress incontinence, diabetes mellitus type 2, CAD, COPD, DVT, GERD, hyperlipidemia, mentally incapacitated, chronic kidney disease stage IV, lobectomy for lung cancer, abdominal wall hernia, Social history: Legal guardian Marianela Syed. Past history of alcohol dependence. Family history: Cancer Physical examination: VITAL SIGNS: 97.6, 85, 20, 10 9 x 70, 93% on 2 L GENERAL: Laying in bed, awake, tired EYES: Pupils equal. Conjunctiva normal. HEENT: External appearance of nose and ears normal, oral cavity dry mucous membranes. Swelling over the left parotid. Tender. NECK: JVD not raised; masses not palpable. HEART: First and second heart sounds are normal; no edema. LUNGS: Respiratory rate normal; clear to auscultation. ABDOMEN: Soft, abdominal wall hernia nontender, liver spleen not palpable, no masses palpable. PSYCH: Answering simple questions . Occasionally confused MUSCULOSKELETAL:No Clubbing/cyanosis;muscles-grossly intact NEUROLOGICAL: Cranial nerves grossly intact; no facial asymmetry, moving all 4 limbs INVESTIGATIONS, reviewed in the clinical context: January 28: White count 15.7 hemoglobin 10.2 sodium 127 potassium 3.6 BUN 94 creatinine 3.15 January 27: Sodium 128 progression 3.7 BUN 90 creatinine 3.[address] abdomen pelvis: Fecal loading. That additional right hemicolon. No small bowel obstruction. January 26: White count 19.1 hemoglobin 11 platelets 375 sodium 134 percussion 3.6. 92 creatinine 3.14 albumin 5.9 Troponin I less than 0.012 Admission labs: White count 16.3 hemoglobin 9.6 sodium 131 progression 3.8. 90 creatinine 3.64 UA positive for leukoesterase, WBC, WBC clumps. COVID 19 PCR: Not detected Chest x-ray film personally reviewed by me-findings could be fibrotic. CT soft tissue neck without contrast: Asymmetric enlargement and left parotid left submandibular slightly creatinine. KUB: Personally reviewed by meet: Dilated loops of bowel. Stool present. EKG tracing personally reviewed by me: Sinus rhythm Assessment and plan: -Acute severe kidney injury possibly combination of prerenal ATN. Poor oral intake.: Slow to respond IV fluids. Follow renal function. Hold Lasix. -Metabolic acidosis from renal failure: Slow to respond IV bicarbonate drip -Acute metabolic encephalopathy with delirium from severe renal failure: Some improvement Follow clinically -Acute left parotitis Precipitated by dehydration and occlusion of parotid duct. Possible secondary infection IV Zosyn. IV fluids. -Morbid obesity BMI 45.4 -Severe constipation from decreased activity Laxative -Diabetes mellitus type 2 on oral hypoglycemic Hold Glucophage. Follow Accu-Cheks. Increase Levemir 24 units subcu daily at bedtime. -Depression and anxiety Abilify 10 mg a day. Cymbalta 60 mg twice a day. -Essential hypertension Currently blood pressure is running relatively in the lower site from dehydration. Hold Norvasc. Cozaar. Lopressor 25 mg twice a day -Hyperuricemia Allopurinol 100 mg a day -GERD Protonix 20 mg daily -Chronic urinary stress incontinence Oxybutynin 15 mg a day, Myrbetriq 25 mg a day -Chronic arthritis with pain Loving 10 1 tablet every 6 when necessary -Acute medical debility Fall precautions Continue IV bicarbonate drip. IV Zosyn. Increase Levemir 24 units. Follow labs
[2022-01-28 21:13] LABS: Glucose,Whole Blood 236 mg/dL (70-110)
[2022-01-28] MEDS: traZODone HCL 50 MG TAB PO SCH (21:25)
[2022-01-28] MEDS: INSULIN DETEMIR (LEVEMIR) 100 UNIT/ML SYR SQ SCH (21:26)
[2022-01-29] MEDS: DEXTROSE 5% IN WATER 1,000 ML with SODIUM BICARB (1 MEQ/ML) 150 ML IV SCH ×2 (02:53→12:12)
[2022-01-29 05:53] LABS: Glucose,Whole Blood 98 mg/dL (70-110)
[2022-01-29] MEDS: INSULIN ASPART (NovoLOG) 100 UNIT/ML VIAL SQ SCH ×4 (06:05→21:16)
[2022-01-29] MEDS: PANTOPRAZOLE 40 MG TABLET PO SCH (06:20)
--- NOTE | 2022-01-29 09:22 | P.PN ---
Subjective Patient is seen in follow-up for acute kidney injury. Resting in bed. Patient is not a very reliable historian. Oral intake is poor. Hemodynamically stable. Blood culture positive for staph aureus and urine culture positive for E. coli. Creatinine stable at 3.15 yesterday. On bicarb drip. Urine output documented as 850 mL yesterday. Vital signs are stable. General: Awake. No acute distress. HEENT: Head exam is unremarkable. LUNGS: Breath sounds decreased. HEART: Rate and Rhythm are regular. ABDOMEN: Soft, no distention. EXTREMITITES: No edema. Objective - Vital Signs Vital signs: Vital Signs Temp 97.2 F L 01/29/22 05:24 Pulse 78 01/29/22 05:24 Resp 16 01/29/22 05:24 BP 102/63 01/29/22 05:24 Pulse Ox 93 L 01/29/22 05:24 FiO2 Intake & Output 01/28/22 01/29/22 01/29/22 18:59 06:59 18:59 Intake Total 1197 540 200 Output Total 600 250 Balance 597 290 200 Intake: Oral 1197 540 200 Output: Urine 600 250 Other: Voiding Method External Catheter External Catheter # Bowel Movements 1 - Labs CBC & Chem 7: 01/28/22 06:56 01/28/22 06:56 Labs: Abnormal Lab Results - Last 24 Hours (Table) 01/28/22 01/28/22 01/28/22 Range/Units 11:30 11:30 16:19 POC Glucose (mg/dL) 198 H 237 H (70-110) mg/dL Ur Random Sodium <20 L (40-220) mmol/L 01/28/22 Range/Units 21:11 POC Glucose (mg/dL) 236 H (70-110) mg/dL Ur Random Sodium (40-220) mmol/L Microbiology - Last 24 Hours (Table) 01/26/22 16:27 Blood Culture Gram Stain - Final Blood Blood Culture - Final Staphylococcus aureus 01/27/22 08:52 Blood Culture Gram Stain - Preliminary Blood 01/25/22 19:18 Urine Culture - Final Urine,Voided Escherichia coli Assessment and Plan Plan: Assessment: 1. Acute kidney injury mostly prerenal secondary to infection, hypotension, diuretics and losartan. Creatinine 3.64 on admission - stable at 3.15 yesterday No hydronephrosis noted on CAT scan. 2. Metabolic acidosis secondary to acute kidney injury and metformin. On IV bicarbonate. 3. Diabetes mellitus. 4. Left parotid gland inflammation. 5. UTI. On antibiotics. Blood culture positive for staph aureus. Urine culture positive for E. coli. 6. Hyponatremia secondary to acute kidney injury. Also component of poor solute intake. Urine sodium less than 20 and urine osmolality 334. 7. Hypokalemia from poor intake. Magnesium normal. Replaced. Plan: Maintain bicarb drip. Maintain fluid restriction. Maintain sodium chloride tab once daily. Continue to hold diuretics and antihypertensives. Avoid nephrotoxins. Continue to monitor renal function and urine output. Follow-up TSH. Strict I's and O's. Follow-up cortisol level.
[2022-01-29] MEDS: allopurinoL 100 MG TAB PO SCH (09:35)
[2022-01-29] MEDS: ARIPiprazole 10 MG TAB PO SCH (09:36)
[2022-01-29] MEDS: ENOXAPARIN 30 MG/0.3 ML SYRINGE SQ SCH (09:36)
[2022-01-29] MEDS: ASPIRIN 81 MG PO SCH (09:36)
[2022-01-29] MEDS: PIPERACILLIN-TAZOBACTAM 3.375 GM in SODIUM CHLORIDE 0.9% 100 ML IVPB SCH (09:36)
[2022-01-29] MEDS: METOPROLOL TARTRATE 25 MG TAB PO SCH ×2 (09:36→21:15)
[2022-01-29] MEDS: DULoxetine HCL 60 MG CAPSULE.DR PO SCH ×2 (09:36→21:15)
[2022-01-29] MEDS: SODIUM CHLORIDE TAB 1 GM TAB PO SCH (09:37)
[2022-01-29] MEDS: NON FORMULARY DRUG (Mirabegron [Myrbetriq] 25 MG Tablet) PO SCH (09:54)
[2022-01-29 10:34] LABS: African American GFR (CKD) 22 (>60 ml/min/1.73 sqM); Anion Gap 7 mmol/L; Blood Urea Nitrogen 94 mg/dL (7-17); Calcium 8.1 mg/dL (8.4-10.2); Carbon Dioxide 29 mmol/L (22-30); Chloride 93 mmol/L (98-107); Glucose 63 mg/dL (74-99); Non-African American GFR(CKD) 19 (>60 ml/min/1.73 sqM); Potassium 2.8 mmol/L (3.5-5.1); Sodium 129 mmol/L (137-145)
[2022-01-29 11:51] LABS: Glucose,Whole Blood 88 mg/dL (70-110)
[2022-01-29] MEDS ORDERED: POTASSIUM CHLORIDE ER 20 MEQ TAB.ER PO STA ×2 (11:59→12:58)
--- NOTE | 2022-01-29 12:02 | P.PN ---
Progress Note - Text Progress Note Date: 01/29/22 Chief Complaint: Weakness, lethargic This is a 71-year-old patient, presents to the ER with altered mental status and weakness. 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 Patient has been laying in bed for last 5 days. Not eating or drinking anything. Patient is feeling very weak with a poor appetite. No fever reported. Slight cough. Left-sided facial swelling noted. No trauma reported. Abdominal pain. Decreased urine output. Patient also due to weakness very limited historian right now. Attempting to talk. Chronic stable medical conditions include obesity, depression, hyperlipidemia, urinary incontinence, diabetes mellitus type 2,. Has a legal guardian Marianela Syed. Admitted with acute severe kidney injury, metabolic acidosis, metabolic encephalopathy with delirium, acute left parotitis. Started IV bicarbonate dose. [facility] Cozaar was held. IV Zosyn. January 27: Patient more awake today. Mouth dry. Trouble with IV access. Answers some questions. A bit agitated. Patient was reassured. Midline ordered. Bicarbonate drip to continue. Slight improvement in creatinine. January 28: Midline was placed yesterday. Getting IV daptomycin. D5W. IV Zosyn. 8 lunch with assistance. Answering questions. Occasionally confused January 29: A bit more awake. IV daptomycin, IV Zosyn. Oral intake less. Spoke to nurse increase oral intake with assistance. Active Medications Acetaminophen (Acetaminophen Tab 325 Mg Tab) 650 mg PO Q6HR PRN PRN Reason: Mild Pain or Fever > 100.5 Last Admin: 01/26/22 01:24 Dose: 650 mg Hydrocodone Bitart/Acetaminophen (Hydrocodone/Apap 7.5-325mg 1 Each Tab) 1 each PO Q6HR PRN PRN Reason: Pain Last Admin: 01/28/22 14:36 Dose: 1 each Allopurinol (Allopurinol 100 Mg Tab) 100 mg PO DAILY [facility] Last Admin: 01/29/22 09:35 Dose: 100 mg Aripiprazole (Aripiprazole 10 Mg Tab) 10 mg PO DAILY [facility] Last Admin: 01/29/22 09:36 Dose: 10 mg Aspirin (Aspirin 81 Mg) 81 mg PO DAILY [facility] Last Admin: 01/29/22 09:36 Dose: 81 mg Calcium Carbonate/Glycine (Calcium Carbonate 500 Mg Chewable) 1,000 mg PO Q4HR PRN PRN Reason: Dyspepsia Last Admin: 01/26/22 17:49 Dose: 1,000 mg Duloxetine HCl (Duloxetine Hcl 60 Mg Capsule.Dr) 60 mg PO BID [facility] Last Admin: 01/29/22 09:36 Dose: 60 mg Enoxaparin Sodium (Enoxaparin 30 Mg/0.3 Ml Syringe) 30 mg SQ DAILY [facility] Last Admin: 01/29/22 09:36 Dose: 30 mg Piperacillin Sod/Tazobactam (Sod 3.375 gm/ Sodium Chloride) 100 mls @ 25 mls/hr IVPB Q12HR [facility]; Protocol Last Admin: 01/29/22 09:36 Dose: 25 mls/hr Sodium Bicarbonate 150 ml/ (Dextrose/Water) 1,150 mls @ 100 mls/hr IV .[id number] [facility] Last Admin: 01/29/22 02:53 Dose: 100 mls/hr Daptomycin 400 mg/ Sodium (Chloride) 50 mls @ 100 mls/hr IVPB Q48H [facility]; Protocol Last Admin: 01/29/22 00:57 Dose: 100 mls/hr Insulin Aspart (Insulin Aspart (Novolog) 100 Unit/Ml Vial) 0 unit SQ ACHS [facility]; Protocol Last Admin: 01/29/22 06:05 Dose: Not Given Insulin Detemir (Insulin Detemir (Levemir) 100 Unit/Ml Syr) 24 unit SQ [facility] Last Admin: 01/28/22 21:26 Dose: 24 unit Lorazepam (Lorazepam 0.5 Mg Tab) 0.5 mg PO Q6HR PRN PRN Reason: Anxiety Last Admin: 01/27/22 13:25 Dose: 0.5 mg Lorazepam (Lorazepam 2 Mg/Ml Inj) 0.5 mg IV Q6HR PRN PRN Reason: Anxiety Last Admin: 01/28/22 01:36 Dose: 0.5 mg Metoprolol Tartrate (Metoprolol Tartrate 25 Mg Tab) 25 mg PO BID [facility] Last Admin: 01/29/22 09:36 Dose: 25 mg Naloxone HCl (Naloxone 0.4 Mg/Ml 1 Ml Vial) 0.2 mg IV Q2M PRN PRN Reason: Opioid Reversal Non-Formulary Medication (Mirabegron [Myrbetriq]) 25 mg PO DAILY [facility] Last Admin: 01/29/22 09:54 Dose: Not Given Ondansetron HCl (Ondansetron 4 Mg/2 Ml Vial) 4 mg IVP Q6HR PRN PRN Reason: Nausea And Vomiting Last Admin: 01/26/22 10:44 Dose: 4 mg Pantoprazole Sodium (Pantoprazole 40 Mg Tablet) 40 mg PO AC-BRKFST [facility] Last Admin: 01/29/22 06:20 Dose: 40 mg Sodium Chloride (Sodium Chloride Tab 1 Gm Tab) 1 gm PO DAILY [facility] Last Admin: 01/29/22 09:37 Dose: 1 gm Trazodone HCl (Trazodone Hcl 50 Mg Tab) 50 mg PO HS [facility] Last Admin: 01/28/22 21:25 Dose: 50 mg Past medical history to include: Depression, hyperlipidemia, urinary stress incontinence, diabetes mellitus type 2, CAD, COPD, DVT, GERD, hyperlipidemia, mentally incapacitated, chronic kidney disease stage IV, lobectomy for lung cancer, abdominal wall hernia, Social history: Legal guardian Marianela Syed. Past history of alcohol dependence. Family history: Cancer Physical examination: VITAL SIGNS: 98.6, 88, 16, 10 4 x 56, 97% on 2 L GENERAL: Laying in bed, tired EYES: Pupils equal. Conjunctiva normal. HEENT: External appearance of nose and ears normal, oral cavity dry mucous membranes. Swelling over the left parotid. Tender. NECK: JVD not raised; masses not palpable. HEART: First and second heart sounds are normal; no edema. LUNGS: Respiratory rate normal; clear to auscultation. ABDOMEN: Soft, abdominal wall hernia nontender, liver spleen not palpable, no masses palpable. PSYCH: Answering simple questions . Intermittently confused MUSCULOSKELETAL:No Clubbing/cyanosis;muscles-grossly intact NEUROLOGICAL: Cranial nerves grossly intact; no facial asymmetry, moving all 4 limbs INVESTIGATIONS, reviewed in the clinical context: January 29: Sodium 129 potassium 2.8. 94 creatinine 2.41 January 28: White count 15.7 hemoglobin 10.2 sodium 127 potassium 3.6 BUN 94 creatinine 3.15 January 27: Sodium 128 progression 3.7 BUN 90 creatinine 3.[address] abdomen pelvis: Fecal loading. That additional right hemicolon. No small bowel obstruction. January 26: White count 19.1 hemoglobin 11 platelets 375 sodium 134 percussion 3.6. 92 creatinine 3.14 albumin 5.9 Troponin I less than 0.012 Admission labs: White count 16.3 hemoglobin 9.6 sodium 131 progression 3.8. 90 creatinine 3.64 UA positive for leukoesterase, WBC, WBC clumps. COVID 19 PCR: Not detected Chest x-ray film personally reviewed by me-findings could be fibrotic. CT soft tissue neck without contrast: Asymmetric enlargement and left parotid left submandibular slightly creatinine. KUB: Personally reviewed by meet: Dilated loops of bowel. Stool present. EKG tracing personally reviewed by me: Sinus rhythm Assessment and plan: -Acute severe kidney injury possibly combination of prerenal ATN. Poor oral intake.: Slow to respond IV fluids. Follow renal function. Hold Lasix. -Metabolic acidosis from renal failure: Improved IV bicarbonate drip discontinue -Acute metabolic encephalopathy with delirium from severe renal failure: Some improvement Follow clinically -Acute left parotitis Precipitated by dehydration and occlusion of parotid duct. Possible secondary infection IV Zosyn. IV fluids. Warm compress -Morbid obesity BMI 45.4 -Severe constipation from decreased activity Laxative -Diabetes mellitus type 2 on oral hypoglycemic Hold Glucophage. Follow Accu-Cheks. Increase Levemir 24 units subcu daily at bedtime. -Depression and anxiety Abilify 10 mg a day. Cymbalta 60 mg twice a day. -Essential hypertension Currently blood pressure is running relatively in the lower site from dehydration. Hold Norvasc. Cozaar. Lopressor 25 mg twice a day -Hyperuricemia Allopurinol 100 mg a day -GERD Protonix 20 mg daily -Chronic urinary stress incontinence Oxybutynin 15 mg a day, Myrbetriq 25 mg a day -Chronic arthritis with pain [place] 10 1 tablet every 6 when necessary -Acute medical debility Fall precautions *Bicarbonate drip. Start D5 saline at 100 mL an hour.. IV Zosyn. Warm compress to the parotid gland every 4 hours. Encourage oral intake.
[2022-01-29 12:08] LABS: T4, Free (Free Thyroxine) 1.38 ng/dL (0.78-2.19)
[2022-01-29] MEDS: DEXTROSE 5%-0.9% NACL 1,000 ML IV SCH ×2 (12:14→21:17)
[2022-01-29 12:43] VITALS: BMI 43.4
--- NOTE | 2022-01-29 14:14 | P.PN ---
Subjective Progress Note Date: 01/29/22 CHIEF COMPLAINT: Constipation HISTORY OF PRESENT ILLNESS: This is a 71-year-old female who presented to the hospital with altered mental status and weakness. She had evidence of UTI, left parotid gland infection and acute kidney injury. Surgical service is following in regards to her constipation. Per nursing patient has had multiple large bowel movements. Patient is still having a decreased appetite and only taking at her foods. She's currently on a heart healthy diet. Abdominal x-ray prominent small bowel loops could be on the basis of ileus or enteritis. There is improvement with regard to the amount of retained debris within the colon relative to prior exam. Afebrile. Sodium 129 potassium 2.8 creatinine 2.41 and using 2.0. Medicine service has discontinued the lactulose PHYSICAL EXAM: VITAL SIGNS: Reviewed GENERAL: Well-developed in no acute distress. HEENT: No sclera icterus. Extraocular movements grossly intact. Moist buccal mucosa. Head is atraumatic, normocephalic. Hears conversational speech. No nasal drainage. NECK: Supple without lymphadenopathy. CHEST: Non-labored respirations and equal bilateral excursions. CARDIOVASCULAR: Palpable 2+ radial pulses. ABDOMEN: Soft. Nondistended. Nontender. MUSCULOSKELETAL: No clubbing or cyanosis. NEUROLOGIC: No focal or lateralizing signs. Cranial nerves II through XII grossly intact. PSYCH: Confused SKIN: Well perfused. Good skin turgor. ASSESSMENT: 1. Abdominal distention with nausea and episode of vomiting likely secondary to constipation 2. Constipation improving 3. Daily narcotic use 4. Acute kidney injury 5. Left parotid gland infection 6. UTI 7. Hyponatremia 8. Metabolic encephalopathy 9. Hypokalemia PLAN: -Repeat abdominal x-ray in a.m. for further follow-up and constipation -Continue supportive care -Antibiotics per ID service for her infectious process -Hyponatremia and acute kidney injury management per nephrology -Patient receiving potassium supplement Physician Dispensing Optician Apprentice note has been reviewed by physician. Signing provider agrees with the documented findings, assessment, and plan of care. Objective - Vital Signs Vital signs: Vital Signs Temp 97.6 F 01/29/22 11:46 Pulse 64 01/29/22 11:46 Resp 16 01/29/22 11:46 BP 153/77 01/29/22 11:46 Pulse Ox 96 01/29/22 11:46 FiO2 Intake & Output 01/28/22 01/29/22 01/29/22 18:59 06:59 18:59 Intake Total 1197 540 50 Output Total 600 250 Balance 597 290 50 Weight 97.5 kg Intake: Oral 1197 540 50 Output: Urine 600 250 Other: Voiding Method External Catheter External Catheter External Catheter # Bowel Movements 1 - Labs CBC & Chem 7: 01/28/22 06:56 01/29/22 09:15 Labs: Abnormal Lab Results - Last 24 Hours (Table) 01/28/22 01/28/22 01/28/22 Range/Units 11:30 16:19 21:11 Sodium (137-145) mmol/L Potassium (3.5-5.1) mmol/L Chloride (98-107) mmol/L BUN (7-17) mg/dL Creatinine (0.52-1.04) mg/dL Glucose (74-99) mg/dL POC Glucose (mg/dL) 237 H 236 H (70-110) mg/dL Calcium (8.4-10.2) mg/dL TSH (0.465-4.680) mIU/L Ur Random Sodium <20 L (40-220) mmol/L 01/29/22 Range/Units 09:15 Sodium 129 L (137-145) mmol/L Potassium 2.8 L (3.5-5.1) mmol/L Chloride 93 L (98-107) mmol/L BUN 94 H (7-17) mg/dL Creatinine 2.41 H (0.52-1.04) mg/dL Glucose 63 L (74-99) mg/dL POC Glucose (mg/dL) (70-110) mg/dL Calcium 8.1 L (8.4-10.2) mg/dL TSH 0.302 L (0.465-4.680) mIU/L Ur Random Sodium (40-220) mmol/L Microbiology - Last 24 Hours (Table) 01/26/22 16:27 Blood Culture Gram Stain - Final Blood Blood Culture - Final Staphylococcus aureus 01/27/22 08:52 Blood Culture Gram Stain - Preliminary Blood 01/25/22 19:18 Urine Culture - Final Urine,Voided Escherichia coli
[2022-01-29] MEDS: HYDROcodone/APAP 7.5-325MG 1 EACH TAB PO PRN ×2 (14:52→21:15)
[2022-01-29] MEDS: CALCIUM CARBONATE 500 MG CHEWABLE PO PRN (14:53)
[2022-01-29 16:31] LABS: Glucose,Whole Blood 191 mg/dL (70-110)
[2022-01-29 20:49] LABS: Glucose,Whole Blood 297 mg/dL (70-110)
[2022-01-29] MEDS: AMOXIC-POT CLAV 500-125 MG 1 EACH TAB PO SCH (21:15)
[2022-01-29] MEDS: traZODone HCL 50 MG TAB PO SCH (21:15)
[2022-01-29] MEDS: INSULIN DETEMIR (LEVEMIR) 100 UNIT/ML SYR SQ SCH (21:16)
--- NOTE | 2022-01-29 22:58 | P.PN ---
Subjective Progress Note Date: 01/28/22 Principal diagnosis: UTI and bacteremia Patient is a 71-year-old female presenting to the hospital for evaluation of mental status changes and weakness and decision did have a positive UA concerning for a symptomatic UTI also have a large parotid gland on the left side sent for parotitis and did have evidence of Staphylococcus aureus bacteremia. On today's evaluation 01/28/2022, patient remains to be afebrile , the patient remains to be pleasantly confused and did not provide any history no vomiting diarrhea reported by the nursing staff Objective - Vital Signs Vital signs: Vital Signs Temp 97.5 F L 01/28/22 08:34 Pulse 77 01/28/22 11:40 Resp 20 01/28/22 11:40 BP 120/74 01/28/22 11:40 Pulse Ox 97 01/28/22 11:40 FiO2 Intake & Output 01/27/22 01/28/22 01/28/22 18:59 06:59 18:59 Intake Total 0 620 Output Total 1 400 Balance 0 619 -400 Intake: Intake, IV Titration 500 Amount Dextrose 5% in Water 1, 400 000 ml @ 100 mls/hr IV . [id number] [facility] with Sodium Bicarb (1 Meq/ml) 150 ml Rx#:[id number] Piperacillin-Tazobactam 3 100 .375 gm In Sodium Chloride 0.9% 100 ml @ 25 mls/hr IVPB Q12HR [facility] Rx #:[id number] Oral 0 120 Output: Urine 400 Stool 1 Other: Voiding Method External Catheter External Catheter External Catheter # Voids 2 # Bowel Movements 1 - Exam GENERAL DESCRIPTION: An elderly female lying in bed in no distress RESPIRATORY SYSTEM: Unlabored breathing , decreased breath sounds at bases HEART: S1 S2 regular rate and rhythm , ABDOMEN: Soft , no tenderness EXTREMITIES: No edema feet - Labs CBC & Chem 7: 01/28/22 06:56 01/29/22 09:15 Labs: Abnormal Lab Results - Last 24 Hours (Table) 01/27/22 01/27/22 01/27/22 Range/Units 08:52 16:33 20:30 WBC (3.8-10.6) k/uL RBC (3.80-5.40) m/uL Hgb (11.4-16.0) gm/dL Hct (34.0-46.0) % Neutrophils # (1.3-7.7) k/uL Sodium (137-145) mmol/L Carbon Dioxide (22-30) mmol/L BUN (7-17) mg/dL Creatinine (0.52-1.04) mg/dL Glucose (74-99) mg/dL POC Glucose (mg/dL) 151 H 157 H (70-110) mg/dL Calcium (8.4-10.2) mg/dL Procalcitonin >100.00 H (0.02-0.09) ng/mL 01/28/22 01/28/22 01/28/22 Range/Units 06:09 06:56 06:56 WBC 15.7 H (3.8-10.6) k/uL RBC 3.30 L (3.80-5.40) m/uL Hgb 10.2 L (11.4-16.0) gm/dL Hct 31.9 L (34.0-46.0) % Neutrophils # 13.5 H (1.3-7.7) k/uL Sodium 127 L (137-145) mmol/L Carbon Dioxide 15 L (22-30) mmol/L BUN 94 H (7-17) mg/dL Creatinine 3.15 H (0.52-1.04) mg/dL Glucose 161 H (74-99) mg/dL POC Glucose (mg/dL) 208 H (70-110) mg/dL Calcium 8.3 L (8.4-10.2) mg/dL Procalcitonin (0.02-0.09) ng/mL 01/28/22 Range/Units 11:30 WBC (3.8-10.6) k/uL RBC (3.80-5.40) m/uL Hgb (11.4-16.0) gm/dL Hct (34.0-46.0) % Neutrophils # (1.3-7.7) k/uL Sodium (137-145) mmol/L Carbon Dioxide (22-30) mmol/L BUN (7-17) mg/dL Creatinine (0.52-1.04) mg/dL Glucose (74-99) mg/dL POC Glucose (mg/dL) 198 H (70-110) mg/dL Calcium (8.4-10.2) mg/dL Procalcitonin (0.02-0.09) ng/mL Microbiology - Last 24 Hours (Table) 01/27/22 08:52 Blood Culture Gram Stain - Preliminary Blood 01/25/22 19:18 Urine Culture - Final Urine,Voided Escherichia coli 01/27/22 08:52 Blood Culture - Final Blood 01/26/22 16:27 Blood Culture Gram Stain - Preliminary Blood Blood Culture - Preliminary Staphylococcus aureus Assessment and Plan (1) Infection of parotid gland Current Visit: Yes Status: Acute Code(s): K11.20 - SIALOADENITIS, UNSPECIF IED SNOMED Code(s): 177579319 (2) UTI (urinary tract infection) Current Visit: Yes Status: Acute Code(s): N39.0 - URINARY TRACT INFECTION, SITE NOT SPECIFIED SNOMED Code(s): 19077452 Plan: 1patient presented to hospital with weakness mental status changes likely multifactorial in this patient did have a significant positive UA likely concerning for a symptomatic UTI and evidence of asymmetric enlargement of the left parotid gland concerning for possible parotitis. 2 patient with Staphylococcus aureus bacteremia possibly related to parotitis, waiting for ID and sensitivity, blood cultures repeated document clearance of bacteremia. 4patient to continue with Zosyn and daptomycin while waiting for the cultures to finalize and monitor clinical course closely Time with Patient: Less than 30
--- NOTE | 2022-01-29 23:00 | P.PN ---
Subjective Progress Note Date: 01/29/22 Principal diagnosis: UTI and bacteremia Patient is a 71-year-old female presenting to the hospital for evaluation of mental status changes and weakness and decision did have a positive UA concerning for a symptomatic UTI also have a large parotid gland on the left side sent for parotitis and did have evidence of Staphylococcus aureus bacteremia. On today's evaluation 01/29/2022, patient continues to be afebrile , the patient is breathing comfortably and in no distress no vomiting or diarrhea reported by the nursing staff Objective - Vital Signs Vital signs: Vital Signs Temp 97.6 F 01/29/22 11:46 Pulse 64 01/29/22 11:46 Resp 16 01/29/22 11:46 BP 153/77 01/29/22 11:46 Pulse Ox 96 01/29/22 11:46 FiO2 Intake & Output 01/28/22 01/29/22 01/29/22 18:59 06:59 18:59 Intake Total 1197 540 50 Output Total 600 250 Balance 597 290 50 Weight 97.5 kg Intake: Oral 1197 540 50 Output: Urine 600 250 Other: Voiding Method External Catheter External Catheter External Catheter # Bowel Movements 1 - Exam GENERAL DESCRIPTION: An elderly female lying in bed in no distress RESPIRATORY SYSTEM: Unlabored breathing , decreased breath sounds at bases HEART: S1 S2 regular rate and rhythm , ABDOMEN: Soft , no tenderness EXTREMITIES: No edema feet - Labs CBC & Chem 7: 01/28/22 06:56 01/29/22 09:15 Labs: Abnormal Lab Results - Last 24 Hours (Table) 01/28/22 01/28/22 01/28/22 Range/Units 11:30 16:19 21:11 Sodium (137-145) mmol/L Potassium (3.5-5.1) mmol/L Chloride (98-107) mmol/L BUN (7-17) mg/dL Creatinine (0.52-1.04) mg/dL Glucose (74-99) mg/dL POC Glucose (mg/dL) 237 H 236 H (70-110) mg/dL Calcium (8.4-10.2) mg/dL TSH (0.465-4.680) mIU/L Ur Random Sodium <20 L (40-220) mmol/L 01/29/22 Range/Units 09:15 Sodium 129 L (137-145) mmol/L Potassium 2.8 L (3.5-5.1) mmol/L Chloride 93 L (98-107) mmol/L BUN 94 H (7-17) mg/dL Creatinine 2.41 H (0.52-1.04) mg/dL Glucose 63 L (74-99) mg/dL POC Glucose (mg/dL) (70-110) mg/dL Calcium 8.1 L (8.4-10.2) mg/dL TSH 0.302 L (0.465-4.680) mIU/L Ur Random Sodium (40-220) mmol/L Microbiology - Last 24 Hours (Table) 01/26/22 16:27 Blood Culture Gram Stain - Final Blood Blood Culture - Final Staphylococcus aureus Assessment and Plan (1) Infection of parotid gland Current Visit: Yes Status: Acute Code(s): K11.20 - SIALOADENITIS, UNSPECIFIED SNOMED Code(s): 364183725 (2) UTI (urinary tract infection) Current Visit: Yes Status: Acute Code(s): N39.0 - URINARY TRACT INFECTION, SITE NOT SPECIFIED SNOMED Code(s): 04941021 Plan: 1patient presented to hospital with weakness mental status changes likely multifactorial in this patient did have a significant positive UA likely concerning for a symptomatic UTI and evidence of asymmetric enlargement of the left parotid gland concerning for possible parotitis. 2 patient with MSSA bacteremia possibly related to parotitis, repeat blood cultures were positive patient did have cephalexin ALLERGY hence we'll continue the daptomycin however the dose has been adjusted up after discussion with the pharmacy 3urine has been finalized with E. coli. Switch over to Augmentin and discontinue Zosyn Time with Patient: Less than 30
[2022-01-30] MEDS: HYDROcodone/APAP 7.5-325MG 1 EACH TAB PO PRN ×4 (03:36→23:16)
[2022-01-30 06:08] LABS: Glucose,Whole Blood 105 mg/dL (70-110)
[2022-01-30] MEDS: PANTOPRAZOLE 40 MG TABLET PO SCH (06:20)
[2022-01-30] MEDS: INSULIN ASPART (NovoLOG) 100 UNIT/ML VIAL SQ SCH ×4 (06:21→20:41)
--- NOTE | 2022-01-30 08:29 | P.PN ---
Subjective Patient is seen in follow-up for acute kidney injury. Resting in bed. Patient is not a very reliable historian. Oral intake is fair per nurse. He modynamically stable. Blood culture positive for staph aureus and urine culture positive for E. coli. Creatinine improved to 2.41 yesterday. Acidosis resolved with bicarb drip. Now on normal saline. Urine output documented as 800 mL yesterday. Vital signs are stable. General: Resting in bed. HEENT: Head exam is unremarkable. LUNGS: Breath sounds decreased. HEART: Rate and Rhythm are regular. ABDOMEN: Soft, no distention. EXTREMITITES: No edema. Objective - Vital Signs Vital signs: Vital Signs Temp 98.2 F 01/30/22 04:00 Pulse 70 01/30/22 04:00 Resp 20 01/30/22 04:00 BP 119/67 01/30/22 04:00 Pulse Ox 96 01/30/22 04:00 FiO2 Intake & Output 01/29/22 01/30/22 01/30/22 18:59 06:59 18:59 Intake Total 590 237 Output Total 1 800 Balance 589 -563 Weight 97.5 kg Intake: Oral 590 237 Output: Urine 800 Stool 1 Other: Voiding Method External Catheter External Catheter - Labs CBC & Chem 7: 01/28/22 06:56 01/29/22 09:15 Labs: Abnormal Lab Results - Last 24 Hours (Table) 01/29/22 01/29/22 01/29/22 Range/Units 09:15 16:22 20:39 Sodium 129 L (137-145) mmol/L Potassium 2.8 L (3.5-5.1) mmol/L Chloride 93 L (98-107) mmol/L BUN 94 H (7-17) mg/dL Creatinine 2.41 H (0.52-1.04) mg/dL Glucose 63 L (74-99) mg/dL POC Glucose (mg/dL) 191 H 297 H (70-110) mg/dL Calcium 8.1 L (8.4-10.2) mg/dL TSH 0.302 L (0.465-4.680) mIU/L Microbiology - Last 24 Hours (Table) 01/27/22 08:52 Blood Culture Gram Stain - Preliminary Blood Blood Culture - Preliminary Presumptive Staph aureus 01/26/22 16:27 Blood Culture Gram Stain - Final Blood Blood Culture - Final Staphylococcus aureus Assessment and Plan Plan: Assessment: 1. Acute kidney injury mostly prerenal secondary to infection, hypotension, diuretics and losartan. Creatinine 3.64 on admission - improved to 2.41 yesterday. No hydronephrosis noted on CAT scan. 2. Metabolic acidosis secondary to acute kidney injury and metformin. Status post bicarb drip. Resolved. 3. Diabetes mellitus. 4. Left parotid gland inflammation. 5. UTI. On antibiotics. ID following. Blood culture positive for staph aureus. Urine culture positive for E. coli. 6. Hyponatremia secondary to acute kidney injury. Also component of poor solute intake. Urine sodium less than 20 and urine osmolality 334. TSH 0.3 with normal free T4. Cortisol level normal. 7. Hypokalemia from poor intake. Magnesium normal. Replaced. Plan: Maintain normal saline. Maintain fluid restriction. Maintain sodium chloride tab once daily. Continue to hold diuretics and antihypertensives. Avoid nephrotoxins. Continue to monitor renal function and urine output. Follow-up morning labs.
--- NOTE | 2022-01-30 09:01 | XR ---
2 view abdomen HISTORY: Constipation 2 views the abdomen on 4 images correlated prior exam 01/28/2022, CT 01/26/2022 Patchy basilar density noted within the lungs, heart remains enlarged. Exam is limited by patient body habitus. No evident pneumoperitoneum or bowel obstruction. There are overlying artifacts. Probable phleboliths in the right hemipelvis. IMPRESSION: Correlate for basilar pneumonia versus atelectasis, follow-up is recommended.
[2022-01-30] MEDS: ARIPiprazole 10 MG TAB PO SCH (09:16)
[2022-01-30] MEDS: AMOXIC-POT CLAV 500-125 MG 1 EACH TAB PO SCH ×2 (09:16→20:41)
[2022-01-30] MEDS: DULoxetine HCL 60 MG CAPSULE.DR PO SCH ×2 (09:16→20:41)
[2022-01-30] MEDS: ACETAMINOPHEN TAB 325 MG TAB PO PRN (09:16)
[2022-01-30] MEDS: SODIUM CHLORIDE TAB 1 GM TAB PO SCH (09:16)
[2022-01-30] MEDS: METOPROLOL TARTRATE 25 MG TAB PO SCH ×2 (09:16→20:41)
[2022-01-30] MEDS: ASPIRIN 81 MG PO SCH (09:16)
[2022-01-30] MEDS: NON FORMULARY DRUG (Mirabegron [Myrbetriq] 25 MG Tablet) PO SCH (09:18)
[2022-01-30] MEDS: allopurinoL 100 MG TAB PO SCH (09:18)
[2022-01-30] MEDS: ENOXAPARIN 30 MG/0.3 ML SYRINGE SQ SCH (09:18)
[2022-01-30 10:02] LABS: Calcium 8.5 mg/dL (8.4-10.2); Potassium 3.6 mmol/L (3.5-5.1)
[2022-01-30 12:14] LABS: Glucose,Whole Blood 154 mg/dL (70-110)
[2022-01-30] MEDS: LACTULOSE 20 GM/30 ML CUP PO SCH ×3 (13:06→20:40)
[2022-01-30] MEDS: DEXTROSE 5%-0.9% NACL 1,000 ML IV SCH (13:07)
[2022-01-30] MEDS: SCOPOLAMINE 1 MG/72 HR PATCH TRANSDERM SCH (13:08)
--- NOTE | 2022-01-30 13:21 | P.PN ---
Subjective Progress Note Date: 01/30/22 CHIEF COMPLAINT: Constipation HISTORY OF PRESENT ILLNESS: This is a 71-year-old female who presented to the hospital with altered mental status and weakness. She had evidence of UTI, left parotid gland infection and acute kidney injury. Surgical service is following in regards to her constipation. Nurse reports no bowel movements for patient yesterday or today. Her lactulose had been discontinued by medicine service. She did have an episode of vomiting this morning. Abdominal x-ray per Dr. Brenna garcia had still shown constipation. Radiologist reports correlate for basilar pneumonia versus atelectasis. Afebrile. Sodium 133 potassium up from 2.8-3.6 creatinine 2.31 magnesium 2.0 PHYSICAL EXAM: VITAL SIGNS: Reviewed GENERAL: Well-developed in no acute distress. HEENT: No sclera icterus. Extraocular movements grossly intact. Moist buccal mucosa. Head is atraumatic, normocephalic. Hears conversational speech. No nasal drainage. NECK: Supple without lymphadenopathy. CHEST: Non-labored respirations and equal bilateral excursions. CARDIOVASCULAR: Palpable 2+ radial pulses. ABDOMEN: Soft. Nondistended. Nontender. MUSCULOSKELETAL: No clubbing or cyanosis. NEUROLOGIC: No focal or lateralizing signs. Cranial nerves II through XII grossly intact. PSYCH: Confused SKIN: Well perfused. Good skin turgor. ASSESSMENT: 1. Abdominal distention with nausea and episode of vomiting likely secondary to constipation 2. Constipation improving 3. Daily narcotic use 4. Acute kidney injury 5. Left parotid gland infection 6. UTI 7. Hyponatremia 8. Metabolic encephalopathy 9. Hypokalemia improved PLAN: -Add scopolamine patch for nausea -Resume lactulose to further treat the constipation -Downgrade diet to clear liquids -Continue Glucerna shakes -Continue supportive care -Antibiotics per ID service for her infectious process -Hyponatremia and acute kidney injury management per nephrology Physician Roll Up Guider Operator note has been reviewed by physician. Signing provider agrees with the documented findings, assessment, and plan of care. Objective - Vital Signs Vital signs: Vital Signs Temp 97.6 F 01/30/22 12:45 Pulse 81 01/30/22 12:45 Resp 18 01/30/22 12:45 BP 135/78 01/30/22 12:45 Pulse Ox 93 L 01/30/22 12:45 FiO2 Intake & Output 0601/30/22 01/30/22 18:59 06:59 18:59 Intake Total 590 237 357 Output Total 1 800 Balance 589 -563 357 Weight 97.5 kg Intake: Oral 590 237 357 Output: Urine 800 Stool 1 Other: Voiding Method External Catheter External Catheter Diaper Incontinent - Labs CBC & Chem 7: 01/28/22 06:56 01/30/22 08:23 Labs: Abnormal Lab Results - Last 24 Hours (Table) 01/29/22 01/29/22 01/30/22 Range/Units 16:22 20:39 08:23 Sodium 133 L (137-145) mmol/L BUN 86 H (7-17) mg/dL Creatinine 2.31 H (0.52-1.04) mg/dL POC Glucose (mg/dL) 191 H 297 H (70-110) mg/dL 01/30/22 Range/Units 12:12 Sodium (137-145) mmol/L BUN (7-17) mg/dL Creatinine (0.52-1.04) mg/dL POC Glucose (mg/dL) 154 H (70-110) mg/dL Microbiology - Last 24 Hours (Table) 01/27/22 08:52 Blood Culture Gram Stain - Preliminary Blood Blood Culture - Preliminary Presumptive Staph aureus 01/26/22 16:27 Blood Culture Gram Stain - Final Blood Blood Culture - Final Staphylococcus aureus
[2022-01-30 16:30] LABS: Glucose,Whole Blood 298 mg/dL (70-110)
--- NOTE | 2022-01-30 16:52 | P.PN ---
Progress Note - Text Progress Note Date: 01/30/22 Chief Complaint: Weakness, lethargic This is a 71-year-old patient, presents to the ER with altered mental status and weakness. Senior Backup Administrator provided the history. Patient has been laying in bed for last 5 days. Not eating or drinking anything. Patient is feeling very weak with a poor appetite. No fever reported. Slight cough. Left-sided facial swelling noted. No trauma reported. Abdominal pain. Decreased urine output. Patient also due to weakness very limited historian right now. Attempting to talk. Chronic stable medical conditions include obesity, depression, hyperlipidemia, urinary incontinence, diabetes mellitus type 2,. Has a legal guardian Marianela Syed. Admitted with acute severe kidney injury, metabolic acidosis, metabolic encephalopathy with delirium, acute left parotitis. Started IV bicarbonate dose. [facility] Cozaar was held. IV Zosyn. January 27: Patient more awake today. Mouth dry. Trouble with IV access. Answers some questions. A bit agitated. Patient was reassured. Midline ordered. Bicarbonate drip to continue. Slight improvement in creatinine. January 28: Midline was placed yesterday. Getting IV daptomycin. D5W. IV Zosyn. 8 lunch with assistance. Answering questions. Occasionally confused January 29: A bit more awake. IV daptomycin, IV Zosyn. Oral intake less. Spoke to nurse increase oral intake with assistance. January 30: Oral intake significantly better. Getting IV fluids. On IV daptomycin. Augmentin. Answering questions more appropriately. Creatinine 2.31. Good urine output Active Medications Acetaminophen (Acetaminophen Tab 325 Mg Tab) 650 mg PO Q6HR PRN PRN Reason: Mild Pain or Fever > 100.5 Last Admin: 01/30/22 09:16 Dose: 650 mg Hydrocodone Bitart/Acetaminophen (Hydrocodone/Apap 7.5-325mg 1 Each Tab) 1 each PO Q6HR PRN PRN Reason: Pain Last Admin: 01/30/22 09:17 Dose: 1 each Allopurinol (Allopurinol 100 Mg Tab) 100 mg PO DAILY [facility] Last Admin: 01/30/22 09:18 Dose: 100 mg Amoxicillin/Clavulanate Potassium (Amoxic-Pot Clav 500-125 Mg 1 Each Tab) 1 e ach PO BID [facility]; Protocol Last Admin: 01/30/22 09:16 Dose: 1 each Aripiprazole (Aripiprazole 10 Mg Tab) 10 mg PO DAILY [facility] Last Admin: 01/30/22 09:16 Dose: 10 mg Aspirin (Aspirin 81 Mg) 81 mg PO DAILY [facility] Last Admin: 01/30/22 09:16 Dose: 81 mg Calcium Carbonate/Glycine (Calcium Carbonate 500 Mg Chewable) 1,000 mg PO Q4HR PRN PRN Reason: Dyspepsia Last Admin: 01/29/22 14:53 Dose: 1,000 mg Duloxetine HCl (Duloxetine Hcl 60 Mg Capsule.Dr) 60 mg PO BID [facility] Last Admin: 01/30/22 09:16 Dose: 60 mg Enoxaparin Sodium (Enoxaparin 30 Mg/0.3 Ml Syringe) 30 mg SQ DAILY [facility] Last Admin: 01/30/22 09:18 Dose: 30 mg Dextrose/Sodium Chloride (Dextrose 5%-Ns Iv Soln) 1,000 mls @ 75 mls/hr IV .[id number] [facility] Last Admin: 01/30/22 13:07 Dose: 75 mls/hr Daptomycin 600 mg/ Sodium (Chloride) 50 mls @ 100 mls/hr IVPB Q48H [facility]; Protocol Insulin Aspart (Insulin Aspart (Novolog) 100 Unit/Ml Vial) 0 unit SQ ACHS [facility]; Protocol Last Admin: 01/30/22 13:08 Dose: 1 unit Insulin Detemir (Insulin Detemir (Levemir) 100 Unit/Ml Syr) 24 unit SQ HS [facility] Last Admin: 01/29/22 21:16 Dose: 24 unit Lactulose (Lactulose 20 Gm/30 Ml Cup) 30 gm PO TID [facility] Last Admin: 01/30/22 13:06 Dose: 30 gm Lorazepam (Lorazepam 0.5 Mg Tab) 0.5 mg PO Q6HR PRN PRN Reason: Anxiety Last Admin: 01/27/22 13:25 Dose: 0.5 mg Metoprolol Tartrate (Metoprolol Tartrate 25 Mg Tab) 25 mg PO BID [facility] Last Admin: 01/30/22 09:16 Dose: 25 mg Naloxone HCl (Naloxone 0.4 Mg/Ml 1 Ml Vial) 0.2 mg IV Q2M PRN PRN Reason: Opioid Reversal Non-Formulary Medication (Mirabegron [Myrbetriq]) 25 mg PO DAILY [facility] Last Admin: 01/30/22 09:18 Dose: Not Given Ondansetron HCl (Ondansetron 4 Mg/2 Ml Vial) 4 mg IVP Q6HR PRN PRN Reason: Nausea And Vomiting Last Admin: 01/26/22 10:44 Dose: 4 mg Pantoprazole Sodium (Pantoprazole 40 Mg Tablet) 40 mg PO AC-[id number] [facility] Last Admin: 01/30/22 06:20 Dose: 40 mg Scopolamine (Scopolamine 1 Mg/72 Hr Patch) 1 patch TRANSDERM Q72H [facility] Last Admin: 01/30/22 13:08 Dose: 1 patch Sodium Chloride (Sodium Chloride Tab 1 Gm Tab) 1 gm PO DAILY [facility] Last Admin: 01/30/22 09:16 Dose: 1 gm Trazodone HCl (Trazodone Hcl 50 Mg Tab) 50 mg PO HS [facility] Last Admin: 01/29/22 21:15 Dose: 50 mg Past medical history to include: Depression, hyperlipidemia, urinary stress incontinence, diabetes mellitus type 2, CAD, COPD, DVT, GERD, hyperlipidemia, mentally incapacitated, chronic kidney disease stage IV, lobectomy for lung cancer, abdominal wall hernia, Social history: Legal guardian Marianela Syed. Past history of alcohol dependence. Family history: Cancer Physical examination: VITAL SIGNS: 97.6, 81, 18, 135-78, 93% room air GENERAL: Laying in bed, more comfortable EYES: Pupils equal. Conjunctiva normal. HEENT: External appearance of nose and ears normal, oral cavity dry mucous membranes. Swelling over the left parotid. Tender. NECK: JVD not raised; masses not palpable. HEART: First and second heart sounds are normal; no edema. LUNGS: Respiratory rate normal; clear to auscultation. ABDOMEN: Soft, abdominal wall hernia nontender, liver spleen not palpable, no masses palpable. PSYCH: Answering questions more appropriately MUSCULOSKELETAL:No Clubbing/cyanosis;muscles-grossly intact NEUROLOGICAL: Cranial nerves grossly intact; no facial asymmetry, moving all 4 limbs INVESTIGATIONS, reviewed in the clinical context: January 30: Sodium 133 potassium 3.6 BUN 86 creatinine 2.31 January 29: Sodium 129 potassium 2.8. 94 creatinine 2.41 January 28: White count 15.7 hemoglobin 10.2 sodium 127 potassium 3.6 BUN 94 creatinine 3.15 January 27: Sodium 128 progression 3.7 BUN 90 creatinine 3.[address] abdomen pelvis: Fecal loading. That additional right hemicolon. No small bowel obstruction. January 26: White count 19.1 hemoglobin 11 platelets 375 sodium 134 percussion 3.6. 92 creatinine 3.14 albumin 5.9 Troponin I less than 0.012 Admission labs: White count 16.3 hemoglobin 9.6 sodium 131 progression 3.8. 90 creatinine 3.64 UA positive for leukoesterase, WBC, WBC clumps. COVID 19 PCR: Not detected Chest x-ray film personally reviewed by me-findings could be fibrotic. CT soft tissue neck without contrast: Asymmetric enlargement and left parotid left submandibular slightly creatinine. KUB: Personally reviewed by meet: Dilated loops of bowel. Stool present. EKG tracing personally reviewed by me: Sinus rhythm Assessment and plan: -Acute severe kidney injury possibly combination of prerenal ATN. Poor oral intake.: Slow to respond Admission creatinine 3.64. IV fluids. Follow renal function. Hold Lasix. -Metabolic acidosis from renal failure: Improved IV bicarbonate drip discontinue -Acute metabolic encephalopathy with delirium from severe renal failure: Better Follow clinically -Acute left parotitis Precipitated by dehydration and occlusion of parotid duct. Possible secondary infection Oral Augmentin and daptomycin. Warm compress -Morbid obesity BMI 45.4 -Severe constipation from decreased activity Laxative -Diabetes mellitus type 2 on oral hypoglycemic Hold Glucophage. Follow Accu-Cheks. Increase Levemir 24 units subcu daily at bedtime. -Depression and anxiety Abilify 10 mg a day. Cymbalta 60 mg twice a day. -Essential hypertension Hold Norvasc and Cozaar. Lopressor 25 mg twice a day -Hyperuricemia Allopurinol 100 mg a day -GERD Protonix 20 mg daily -Chronic urinary stress incontinence Oxybutynin 15 mg a day, Myrbetriq 25 mg a day -Chronic arthritis with pain Comfort 10 1 tablet every 6 when necessary -Acute medical debility Fall precautions Change IV fluids to saline at 50 mL an hour. Follow labs. Follow nephrology.
[2022-01-30] MEDS: SODIUM CHLORIDE 0.9% 1,000 ML IV SCH (17:00)
[2022-01-30 20:12] LABS: Glucose,Whole Blood 290 mg/dL (70-110)
[2022-01-30] MEDS: INSULIN DETEMIR (LEVEMIR) 100 UNIT/ML SYR SQ SCH (20:41)
[2022-01-30] MEDS: traZODone HCL 50 MG TAB PO SCH (20:41)
[2022-01-31] MEDS: HYDROcodone/APAP 7.5-325MG 1 EACH TAB PO PRN ×4 (05:11→23:04)
[2022-01-31 06:03] LABS: Glucose,Whole Blood 76 mg/dL (70-110)
[2022-01-31] MEDS: INSULIN ASPART (NovoLOG) 100 UNIT/ML VIAL SQ SCH ×4 (06:14→20:42)
[2022-01-31] MEDS: PANTOPRAZOLE 40 MG TABLET PO SCH (06:14)
[2022-01-31 08:25] LABS: Calcium 8.3 mg/dL (8.4-10.2); Magnesium 1.9 mg/dL (1.6-2.3); Potassium 3.2 mmol/L (3.5-5.1)
[2022-01-31] MEDS: LACTULOSE 20 GM/30 ML CUP PO SCH ×3 (09:07→20:43)
[2022-01-31] MEDS: ARIPiprazole 10 MG TAB PO SCH (09:08)
[2022-01-31] MEDS: AMOXIC-POT CLAV 500-125 MG 1 EACH TAB PO SCH ×2 (09:08→21:04)
[2022-01-31] MEDS: SODIUM CHLORIDE TAB 1 GM TAB PO SCH (09:08)
[2022-01-31] MEDS: ASPIRIN 81 MG PO SCH (09:08)
[2022-01-31] MEDS: allopurinoL 100 MG TAB PO SCH (09:08)
[2022-01-31] MEDS: CALCIUM CARBONATE 500 MG CHEWABLE PO PRN (09:08)
[2022-01-31] MEDS: DULoxetine HCL 60 MG CAPSULE.DR PO SCH ×2 (09:08→20:42)
[2022-01-31] MEDS: METOPROLOL TARTRATE 25 MG TAB PO SCH ×2 (09:08→20:42)
[2022-01-31] MEDS: ENOXAPARIN 30 MG/0.3 ML SYRINGE SQ SCH (09:09)
[2022-01-31] MEDS: NON FORMULARY DRUG (Mirabegron [Myrbetriq] 25 MG Tablet) PO SCH (09:09)
[2022-01-31] MEDS ORDERED: Potassium Replacement Protocol 1 EACH MISC MISCELLANE PRN ×2 (09:31→09:46)
--- NOTE | 2022-01-31 09:46 | P.PN ---
Subjective Progress Note Date: 01/31/22 Principal diagnosis: Patient is a 71-year-old female seen in renal consultation for acute kidney injury. Patient's creatinine on admission yesterday was 3.64. Patient was brought to the hospital due to altered mental status and weakness. She has staph aureus bacteremia as well as E. coli UTI. She complains of not feeling well tired and fatigued her appetite she denies any nausea vomiting but has diarrhea. The left parotid gland is swollen and is tender. Also complains of poor appetite. Also complains of cough with scant yellow purulent expectoration. No chest pain. No abdominal pain no dysuria frequency. On examination awake alert and oriented. W1 26/76 heart rate 85 times and then 7.7 24-hour intake is 1954 output is 1000 mL HEENT exam no JVP neck is supple no facial asymmetry there is elevation of the left pupil. She has had cataract surgery Lungs are significant for left lower zone coarse crackles not clear but cough. A chest x-ray on 01/25/2022 on admission showed possible pulmonary fibrosis and progression compared to old exam from 2018 Heart sounds unremarkable for any murmur rub or gallop Abdomen is protuberant but nontender Extreme exam was no edema Neurologically awake alert oriented. Dialyzed weakness. Assessment: 1. Acute kidney injury mostly prerenal secondary to infection, staph aureus bacteremia E. coli UTI, hypotension, diuretics and losartan. Creatinine 3.64 on admission - improved to 1.29 No hydronephrosis noted on CAT scan. 2. Metabolic acidosis secondary to acute kidney injury and metformin. Status post bicarb drip. Resolved. Bicarb 25 3. Diabetes mellitus. 4. Left parotid gland inflammation. 5. UTI. On antibiotics. ID following. Blood culture positive for staph aureus. Urine culture positive for E. coli. 6. Hyponatremia secondary to acute kidney injury. Also component of poor solute intake. Urine sodium less than 20 and urine osmolality 334. TSH 0.3 with normal free T4. Cortisol level normal. Sodium improved to 135 7. Hypokalemia from poor intake. Magnesium normal. Replaced. Potassium is 3.2. Element of GI losses from diarrhea and 40 Recommendation 1. Continue antibiotics 2. Replace potassium, she'll need at least 60 mEq 3. Continue IV fluids because of the diarrhea and poor intake 4. Monitor labs tomorrow Objective - Vital Signs Vital signs: Vital Signs Temp 97.7 F 01/31/22 09:04 Pulse 85 01/31/22 09:04 Resp 16 01/31/22 09:04 BP 126/76 01/31/22 09:04 Pulse Ox 99 01/31/22 09:04 FiO2 Intake & Output 01/30/22 01/31/22 01/31/22 18:59 06:59 18:59 Intake Total 1954 897 Output Total 1000 Balance 954 897 Intake: IV 700 Dextrose 5%-0.9% NaCl 1, 600 000 ml @ 75 mls/hr IV . [id number] [facility] Rx#:[id number] Sodium Chloride 0.9% 1, 100 000 ml @ 50 mls/hr IV . Q20H [facility] Rx#:[id number] Oral 1254 897 Output: Urine 1000 Other: Voiding Method Diaper Diaper Diaper Incontinent Incontinent Incontinent # Voids 3 # Bowel Movements 1 6 - Labs CBC & Chem 7: 01/28/22 06:56 01/31/22 07:04 Labs: Abnormal Lab Results - Last 24 Hours (Table) 01/30/22 01/30/22 01/30/22 Range/Units 08:23 12:12 16:29 Sodium 133 L (137-145) mmol/L Potassium (3.5-5.1) mmol/L BUN 86 H (7-17) mg/dL Creatinine 2.31 H (0.52-1.04) mg/dL Glucose (74-99) mg/dL POC Glucose (mg/dL) 154 H 298 H (70-110) mg/dL Calcium (8.4-10.2) mg/dL 01/30/22 01/31/22 Range/Units 20:11 07:04 Sodium 135 L (137-145) mmol/L Potassium 3.2 L (3.5-5.1) mmol/L BUN 59 H (7-17) mg/dL Creatinine 1.29 H (0.52-1.04) mg/dL Glucose 68 L (74-99) mg/dL POC Glucose (mg/dL) 290 H (70-110) mg/dL Calcium 8.3 L (8.4-10.2) mg/dL Microbiology - Last 24 Hours (Table) 01/29/22 14:45 Blood Culture - Preliminary Blood No Growth after 24 hours 01/27/22 08:52 Blood Culture Gram Stain - Final Blood Blood Culture - Final Staphylococcus aureus
[2022-01-31 10:16] LABS: Basophils % (A) 0 %; Eosinophils # (A) 0.4 k/uL (0-0.7); Eosinophils % (A) 3 %; HCT 28.5 % (34.0-46.0); HGB 9.3 gm/dL (11.4-16.0); Hypochromasia Slight; Lymphocytes # (A) 1.2 k/uL (1.0-4.8); Lymphocytes % (A) 9 %; MCH 31.4 pg (25.0-35.0); MCHC 32.7 g/dL (31.0-37.0); MCV 96.1 fL (80.0-100.0); Mean Platelet Volume 8.2; Monocytes # (A) 0.6 k/uL (0-1.0); Monocytes % (A) 5 %; Neutrophils # (A) 10.7 k/uL (1.3-7.7); Neutrophils % (A) 82 %; Platelet Count 272 k/uL (150-450); RBC 2.97 m/uL (3.80-5.40); RDW 14.7 % (11.5-15.5); WBC 13.1 k/uL (3.8-10.6)
[2022-01-31] MEDS: POTASSIUM CHLORIDE ER 20 MEQ TAB.ER PO SCH ×4 (10:20→11:24)
--- NOTE | 2022-01-31 10:27 | P.PN ---
Progress Note - Text Progress Note Date: 01/31/22 Patient is very hard of hearing. She has no real complaints of abdominal pain or nausea. She is tolerating full liquid diet. She's had a bowel movement. On exam abdomen soft nontender. Resolving constipation. Patient will remain on full liquid diet.
[2022-01-31 11:25] LABS: Glucose,Whole Blood 110 mg/dL (70-110)
[2022-01-31] MEDS: SODIUM CHLORIDE 0.9% 1,000 ML IV SCH (11:25)
[2022-01-31 16:58] LABS: Glucose,Whole Blood 247 mg/dL (70-110)
[2022-01-31 20:22] LABS: Glucose,Whole Blood 252 mg/dL (70-110)
[2022-01-31] MEDS: traZODone HCL 50 MG TAB PO SCH (20:42)
[2022-01-31] MEDS: INSULIN DETEMIR (LEVEMIR) 100 UNIT/ML SYR SQ SCH (20:43)
--- NOTE | 2022-01-31 22:02 | P.PN ---
Subjective Progress Note Date: 01/31/22 71-year-old patient, presents to the ER with altered mental status and weakness. Cream Ripener provided the history. Patient has been laying in bed for last 5 days. Not eating or drinking anything. Patient is feeling very weak with a poor appetite. No fever reported. Slight cough. Left-sided facial swelling noted. No trauma reported. Abdominal pain. Decreased urine output. Patient also due to weakness very limited historian right now. Attempting to talk. Chronic stable medical conditions include obesity, depression, hyperlipidemia, urinary incontinence, diabetes mellitus type 2,. Has a legal guardian Marianela Syed. Admitted with acute severe kidney injury, metabolic acidosis, metabolic enc ephalopathy with delirium, acute left parotitis. Started IV bicarbonate dose. Norvasc Cozaar was held. IV Zosyn. Objective - Vital Signs Vital signs: Vital Signs Temp 97.5 F L 01/31/22 11:15 Pulse 94 01/31/22 11:15 Resp 16 01/31/22 11:15 BP 111/65 01/31/22 11:15 Pulse Ox 98 01/31/22 11:15 FiO2 Intake & Output 01/30/22 01/31/22 01/31/22 18:59 06:59 18:59 Intake Total 1954 2334 Output Total 1000 Balance 954 2334 Intake: IV 700 Dextrose 5%-0.9% NaCl 1, 600 000 ml @ 75 mls/hr IV . [id number] [facility] Rx#:[id number] Sodium Chloride 0.9% 1, 100 000 ml @ 50 mls/hr IV . Q20H [facility] Rx#:[id number] Oral 1254 2334 Output: Urine 1000 Other: Voiding Method Diaper Diaper Diaper Incontinent Incontinent Incontinent # Voids 3 # Bowel Movements 1 6 - Exam GENERAL: Laying in bed, more comfortable EYES: Pupils equal. Conjunctiva normal. HEENT: External appearance of nose and ears normal, oral cavity dry mucous membranes. Swelling over the left parotid. Tender. NECK: JVD not raised; masses not palpable. HEART: First and second heart sounds are normal; no edema. LUNGS: Respiratory rate normal; clear to auscultation. ABDOMEN: Soft, abdominal wall hernia nontender, liver spleen not palpable, no masses palpable. PSYCH: Answering questions more appropriately MUSCULOSKELETAL:No Clubbing/cyanosis;muscles-grossly intact NEUROLOGICAL: Cranial nerves grossly intact; no facial asymmetry, moving all 4 limbs - Labs CBC & Chem 7: 01/31/22 07:04 01/31/22 19:19 Labs: Abnormal Lab Results - Last 24 Hours (Table) 01/30/22 01/30/22 01/31/22 Range/Units 16:29 20:11 07:04 WBC (3.8-10.6) k/uL RBC (3.80-5.40) m/uL Hgb (11.4-16.0) gm/dL Hct (34.0-46.0) % Neutrophils # (1.3-7.7) k/uL Sodium 135 L (137-145) mmol/L Potassium 3.2 L (3.5-5.1) mmol/L BUN 59 H (7-17) mg/dL Creatinine 1.29 H (0.52-1.04) mg/dL Glucose 68 L (74-99) mg/dL POC Glucose (mg/dL) 298 H 290 H (70-110) mg/dL Calcium 8.3 L (8.4-10.2) mg/dL 01/31/22 Range/Units 07:04 WBC 13.1 H (3.8-10.6) k/uL RBC 2.97 L (3.80-5.40) m/uL Hgb 9.3 L (11.4-16.0) gm/dL Hct 28.5 L (34.0-46.0) % Neutrophils # 10.7 H (1.3-7.7) k/uL Sodium (137-145) mmol/L Potassium (3.5-5.1) mmol/L BUN (7-17) mg/dL Creatinine (0.52-1.04) mg/dL Glucose (74-99) mg/dL POC Glucose (mg/dL) (70-110) mg/dL Calcium (8.4-10.2) mg/dL Microbiology - Last 24 Hours (Table) 01/30/22 08:23 Blood Culture - Preliminary Blood No Growth after 24 hours 01/29/22 14:45 Blood Culture - Preliminary Blood No Growth after 24 hours 01/27/22 08:52 Blood Culture Gram Stain - Final Blood Blood Culture - Final Staphylococcus aureus Assessment and Plan Assessment: 1. Acute severe kidney injury possibly combination of prerenal ATN. Poor oral intake.: Slow to respond Admission creatinine 3.64. IV fluids. Follow renal function. Hold Lasix. 2. Metabolic acidosis from renal failure: Improved IV bicarbonate drip discontinue 3. Acute metabolic encephalopathy with delirium from severe renal failure: Better Follow clinically 4. Acute left parotitis Precipitated by dehydration and occlusion of parotid duct. Possible secondary infection Oral Augmentin and daptomycin. Warm compress 5. Severe constipation from decreased activity Laxative 6. Diabetes mellitus type 2 on oral hypoglycemic Hold Glucophage. Follow Accu-Cheks. Increase Levemir 24 units subcu daily at bedtime. 7. Depression and anxiety Abilify 10 mg a day. Cymbalta 60 mg twice a day. 8 Essential hypertension Hold Norvasc and Cozaar. Lopressor 25 mg twice a day 9. Hyperuricemia Allopurinol 100 mg a day 10. Chronic urinary stress incontinence Oxybutynin 15 mg a day, Myrbetriq 25 mg a day
--- NOTE | 2022-01-31 22:28 | P.PN ---
Subjective Progress Note Date: 01/30/22 Principal diagnosis: UTI and bacteremia Patient is a 71-year-old female presenting to the hospital for evaluation of mental status changes and weakness and decision did have a positive UA concerning for a symptomatic UTI also have a large parotid gland on the left side sent for parotitis and did have evidence of Staphylococcus aureus bacteremia. On today's evaluation 01/30/2022, patient is afebrile , the patient is breathing comfortably on room air, patient denies any chest pain shortness of breath or cough, has been complaining of some pain to the left side of the face, no vomiting or diarrhea reported by the nursing staff Objective - Vital Signs Vital signs: Vital Signs Temp 97.6 F 01/30/22 12:45 Pulse 81 01/30/22 12:45 Resp 18 01/30/22 12:45 BP 135/78 01/30/22 12:45 Pulse Ox 93 L 01/30/22 12:45 FiO2 Intake & Output 01/29/22 01/30/22 01/30/22 18:59 06:59 18:59 Intake Total 590 237 357 Output Total 1 800 Balance 589 -563 357 Weight 97.5 kg Intake: Oral 590 237 357 Output: Urine 800 Stool 1 Other: Voiding Method External Catheter External Catheter Diaper Incontinent - Exam GENERAL DESCRIPTION: An elderly female lying in bed in no distress RESPIRATORY SYSTEM: Unlabored breathing , decreased breath sounds at bases HEART: S1 S2 regular rate and rhythm , ABDOMEN: Soft , no tenderness EXTREMITIES: No edema feet - Labs CBC & Chem 7: 01/31/22 07:04 01/31/22 19:19 Labs: Abnormal Lab Results - Last 24 Hours (Table) 01/29/22 01/29/22 01/30/22 Range/Units 16:22 20:39 08:23 Sodium 133 L (137-145) mmol/L BUN 86 H (7-17) mg/dL Creatinine 2.31 H (0.52-1.04) mg/dL POC Glucose (mg/dL) 191 H 297 H (70-110) mg/dL 01/30/22 Range/Units 12:12 Sodium (137-145) mmol/L BUN (7-17) mg/dL Creatinine (0.52-1.04) mg/dL POC Glucose (mg/dL) 154 H (70-110) mg/dL Microbiology - Last 24 Hours (Table) 01/27/22 08:52 Blood Culture Gram Stain - Preliminary Blood Blood Culture - Preliminary Presumptive Staph aureus 01/26/22 16:27 Blood Culture Gram Stain - Final Blood Blood Culture - Final Staphylococcus aureus Assessment and Plan (1) Infection of parotid gland Current Visit: Yes Status: Acute Code(s): K11.20 - SIALOADENITIS, UNSPECIFIED SNOMED Code(s): 422487750 (2) UTI (urinary tract infection) Current Visit: Yes Status: Acute Code(s): N39.0 - URINARY TRACT INFECTION, SITE NOT SPECIFIED SNOMED Code(s): 92022446 Plan: 1patient presented to hospital with weakness mental status changes likely mu ltifactorial in this patient did have a significant positive UA likely concerning for a symptomatic UTI and evidence of asymmetric enlargement of the left parotid gland concerning for possible parotitis. 2 patient with MSSA bacteremia likely related to parotitis, repeat blood cultures were positive patient did have cephalexin ALLERGY hence we'll continue the daptomycin 3patient with E. coli. Urinary tract infection, patient to continue with Augmentin Time with Patient: Less than 30
--- NOTE | 2022-01-31 22:29 | P.PN ---
Subjective Progress Note Date: 01/31/22 Principal diagnosis: UTI and bacteremia Patient is a 71-year-old female presenting to the hospital for evaluation of mental status changes and weakness and decision did have a positive UA concerning for a symptomatic UTI also have a large parotid gland on the left side sent for parotitis and did have evidence of Staphylococcus aureus bacteremia. On today's evaluation 01/31/2022, patient continues to be afebrile , the patient is breathing comfortably on room air, patient denies chest pain shortness of breath or cough, the patient is still complaining of some pain to the left side of the face but no worsening Objective - Vital Signs Vital signs: Vital Signs Temp 97.5 F L 01/31/22 11:15 Pulse 94 01/31/22 11:15 Resp 16 01/31/22 11:15 BP 111/65 01/31/22 11:15 Pulse Ox 98 01/31/22 11:15 FiO2 Intake & Output 01/30/22 01/31/22 01/31/22 18:59 06:59 18:59 Intake Total 1954 2334 Output Total 1000 Balance 954 2334 Intake: IV 700 Dextrose 5%-0.9% NaCl 1, 600 000 ml @ 75 mls/hr IV . [id number] VIOLETTA Rx#:[id number] Sodium Chloride 0.9% 1, 100 000 ml @ 50 mls/hr IV . Q20H VIOLETTA Rx#:[id number] Oral 1254 2334 Output: Urine 1000 Other: Voiding Method Diaper Diaper Diaper Incontinent Incontinent Incontinent # Voids 3 # Bowel Movements 1 6 - Exam GENERAL DESCRIPTION: An elderly female lying in bed in no distress RESPIRATORY SYSTEM: Unlabored breathing , decreased breath sounds at bases HEART: S1 S2 regular rate and rhythm , ABDOMEN: Soft , no tenderness EXTREMITIES: No edema feet - Labs CBC & Chem 7: 01/31/22 07:04 01/31/22 19:19 Labs: Abnormal Lab Results - Last 24 Hours (Table) 01/30/22 01/30/22 01/30/22 Range/Units 12:12 16:29 20:11 WBC (3.8-10.6) k/uL RBC (3.80-5.40) m/uL Hgb (11.4-16.0) gm/dL Hct (34.0-46.0) % Neutrophils # (1.3-7.7) k/uL Sodium (137-145) mmol/L Potassium (3.5-5.1) mmol/L BUN (7-17) mg/dL Creatinine (0.52-1.04) mg/dL Glucose (74-99) mg/dL POC Glucose (mg/dL) 154 H 298 H 290 H (70-110) mg/dL Calcium (8.4-10.2) mg/dL 01/31/22 01/31/22 Range/Units 07:04 07:04 WBC 13.1 H (3.8-10.6) k/uL RBC 2.97 L (3.80-5.40) m/uL Hgb 9.3 L (11.4-16.0) gm/dL Hct 28.5 L (34.0-46.0) % Neutrophils # 10.7 H (1.3-7.7) k/uL Sodium 135 L (137-145) mmol/L Potassium 3.2 L (3.5-5.1) mmol/L BUN 59 H (7-17) mg/dL Creatinine 1.29 H (0.52-1.04) mg/dL Glucose 68 L (74-99) mg/dL POC Glucose (mg/dL) (70-110) mg/dL Calcium 8.3 L (8.4-10.2) mg/dL Microbiology - Last 24 Hours (Table) 01/30/22 08:23 Blood Culture - Preliminary Blood No Growth after 24 hours 01/29/22 14:45 Blood Culture - Preliminary Blood No Growth after 24 hours 01/27/22 08:52 Blood Culture Gram Stain - Final Blood Blood Culture - Final Staphylococcus aureus Assessment and Plan (1) Infection of parotid gland Current Visit: Yes Status: Acute Code(s): K11.20 - SIALOADENITIS, UNSPECIFIED SNOMED Code(s): 622693104 (2) UTI (urinary tract infection) Current Visit: Yes Status: Acute Code(s): N39.0 - URINARY TRACT INFECTION, SITE NOT SPECIFIED SNOMED Code(s): 20895656 Plan: 1patient presented to hospital with weakness mental status changes likely multifactorial in this patient did have a significant positive UA likely concerning for a symptomatic UTI and evidence of asymmetric enlargement of the left parotid gland concerning for possible parotitis. 2 patient with MSSA bacteremia likely related to parotitis, repeat blood cultures has been negative patient did have cephalexin ALLERGY hence we'll continue the daptomycin and monitor clinical course closely 3patient with E. coli. Urinary tract infection, patient currently being treated with Augmentin Time with Patient: Less than 30
[2022-02-01] MEDS: HYDROcodone/APAP 7.5-325MG 1 EACH TAB PO PRN ×3 (04:50→17:49)
[2022-02-01 06:10] LABS: Glucose,Whole Blood 71 mg/dL (70-110)
[2022-02-01] MEDS: INSULIN ASPART (NovoLOG) 100 UNIT/ML VIAL SQ SCH ×4 (06:12→20:35)
[2022-02-01] MEDS: PANTOPRAZOLE 40 MG TABLET PO SCH (06:14)
[2022-02-01] MEDS: CALCIUM CARBONATE 500 MG CHEWABLE PO PRN (08:53)
[2022-02-01] MEDS: LACTULOSE 20 GM/30 ML CUP PO SCH ×3 (08:54→20:34)
[2022-02-01] MEDS: METOPROLOL TARTRATE 25 MG TAB PO SCH ×2 (08:54→20:35)
[2022-02-01] MEDS: allopurinoL 100 MG TAB PO SCH (08:54)
[2022-02-01] MEDS: ASPIRIN 81 MG PO SCH (08:54)
[2022-02-01] MEDS: SODIUM CHLORIDE TAB 1 GM TAB PO SCH (08:54)
[2022-02-01] MEDS: ARIPiprazole 10 MG TAB PO SCH (08:54)
[2022-02-01] MEDS: DULoxetine HCL 60 MG CAPSULE.DR PO SCH ×2 (08:54→20:35)
[2022-02-01] MEDS: ENOXAPARIN 30 MG/0.3 ML SYRINGE SQ SCH (08:54)
[2022-02-01] MEDS: AMOXIC-POT CLAV 500-125 MG 1 EACH TAB PO SCH ×2 (08:54→20:35)
[2022-02-01] MEDS: NON FORMULARY DRUG (Mirabegron [Myrbetriq] 25 MG Tablet) PO SCH (08:55)
[2022-02-01] MEDS: SODIUM CHLORIDE 0.9% 1,000 ML IV SCH (08:55)
--- NOTE | 2022-02-01 09:07 | P.PN ---
Progress Note - Text Progress Note Date: 02/01/22 Patient is resting comfortably in bed. She is tolerating diet. She's had bowel movements. On exam vital signs are stable. Abdomen soft. There is no significant tenderness. Resolved constipation. Patiently receive supportive care.
--- NOTE | 2022-02-01 09:46 | P.PN ---
Subjective Progress Note Date: 02/01/22 Principal diagnosis: Patient is a 71-year-old female seen in renal consultation for acute kidney injury, secondary to sepsis with staph aureus bacteremia as well as E. coli urinary tract infection. Patient's creatinine on admission y was 3.64. Patient was brought to the hospital due to altered mental status and weakness. She complains of not feeling well tired and fatigued her appetite is slightly better. No nausea vomiting diarrhea. The left parotid gland is swollen and is tender. Also complains of poor appetite. Also complains of cough with scant yellow purulent expectoration. No chest pain. No abdominal pain no dysuria frequency. On examination awake alert and oriented. Blood pressure 115/60 heart rate 83 temperature 90.8 24-hour intake is 3461 output is not documented HEENT exam no JVP neck is supple no facial asymmetry there is elevation of the left pupil. She has had cataract surgery Lungs are significant for left lower zone coarse crackles not clear but cough. A chest x-ray on 01/25/2022 on admission showed possible pulmonary fibrosis and progression compared to old exam from 2018 Heart sounds unremarkable for any murmur rub or gallop Abdomen is protuberant but nontender Extreme exam was no edema Neurologically awake alert oriented. Dialyzed weakness. Labs are pending today Assessment: 1. Acute kidney injury mostly prerenal secondary to infection, staph aureus bacteremia E. coli UTI, hypotension, diuretics and losartan. Creatinine 3.64 on admission - improved to 1.29 as of yesterday. Last today are pending. No hydronephrosis noted on CAT scan. 2. Metabolic acidosis secondary to acute kidney injury and metformin. Status post bicarb drip. Resolved. Bicarb 25. Labs pending today 3. Diabetes mellitus. 4. Left parotid gland inflammation. 5. UTI. On antibiotics. ID following. Blood culture positive for staph aureus. Urine culture positive for E. coli. 6. Hyponatremia secondary to acute kidney injury. Also component of poor solute intake. Urine sodium less than 20 and urine osmolality 334. TSH 0.3 with normal free T4. Cortisol level normal. Sodium improved to 135 7. Hypokalemia from poor intake. Magnesium normal. Replaced. Potassium improved to 4.3 after replacement Recommendation 1. Continue antibiotics 2. Continue IV fluids because of the diarrhea and poor intake 3. Monitor labs tomorrow Objective - Vital Signs Vital signs: Vital Signs Temp 98.0 F 02/01/22 08:53 Pulse 83 02/01/22 08:53 Resp 18 02/01/22 08:53 BP 115/60 02/01/22 08:53 Pulse Ox 95 02/01/22 08:53 FiO2 Intake & Output 01/31/22 02/01/22 02/01/22 18:59 06:59 18:59 Intake Total 3461 237 Output Total 3 Balance 3461 -3 237 Intake: IV 10 Invasive Line 3 10 Oral 3451 237 Output: Urine/Stool Mix 3 Other: Voiding Method Diaper Diaper Diaper Incontinent Incontinent Incontinent # Bowel Movements 3 - Labs CBC & Chem 7: 01/31/22 07:04 01/31/22 19:19 Labs: Abnormal Lab Results - Last 24 Hours (Table) 01/31/22 01/31/22 01/31/22 Range/Units 07:04 16:54 20:20 WBC 13.1 H (3.8-10.6) k/uL RBC 2.97 L (3.80-5.40) m/uL Hgb 9.3 L (11.4-16.0) gm/dL Hct 28.5 L (34.0-46.0) % Neutrophils # 10.7 H (1.3-7.7) k/uL POC Glucose (mg/dL) 247 H 252 H (70-110) mg/dL Microbiology - Last 24 Hours (Table) 01/29/22 14:45 Blood Culture - Preliminary Blood No Growth after 48 hours 01/30/22 08:23 Blood Culture - Preliminary Blood No Growth after 24 hours
[2022-02-01 11:00] LABS: Albumin 2.9 g/dL (3.5-5.0); Calcium 8.5 mg/dL (8.4-10.2); Magnesium 1.8 mg/dL (1.6-2.3); Potassium 4.8 mmol/L (3.5-5.1); Total Bilirubin 0.4 mg/dL (0.2-1.3); Total Protein 5.6 g/dL (6.3-8.2)
[2022-02-01 11:02] LABS: Basophils % (A) 0 %; Eosinophils # (A) 0.3 k/uL (0-0.7); Eosinophils % (A) 3 %; HCT 33.9 % (34.0-46.0); HGB 10.6 gm/dL (11.4-16.0); Hypochromasia Moderate; Lymphocytes # (A) 1.1 k/uL (1.0-4.8); Lymphocytes % (A) 10 %; MCH 30.8 pg (25.0-35.0); MCHC 31.1 g/dL (31.0-37.0); Mean Platelet Volume 8.6; Monocytes # (A) 0.5 k/uL (0-1.0); Monocytes % (A) 4 %; Neutrophils # (A) 9.2 k/uL (1.3-7.7); Neutrophils % (A) 81 %; Platelet Count 262 k/uL (150-450); RBC 3.43 m/uL (3.80-5.40); RDW 14.9 % (11.5-15.5); WBC 11.4 k/uL (3.8-10.6)
[2022-02-01 11:53] LABS: Glucose,Whole Blood 203 mg/dL (70-110)
--- NOTE | 2022-02-01 15:46 | P.PN ---
Subjective Progress Note Date: 02/01/22 Principal diagnosis: Acute severe kidney injury Metabolic acidosis from renal failure Acute metabolic encephalopathy Acute left parotitis Severe constipation 71-year-old patient, presents to the ER with altered mental status and weakness. Welt Sewer provided the history. Patient has been laying in bed for last 5 days. Not eating or drinking anything. Patient is feeling very weak with a poor appetite. No fever reported. Slight cough. Left-sided facial swelling noted. No trauma reported. Abdominal pain. Decreased urine output. Patient also due to weakness very limited historian right now. Attempting to talk. Chronic stable medical conditions include obesity, depression, hyperlipidemia, urinary incontinence, diabetes mellitus type 2,. Has a legal guardian Marianela Syed. Admitted with acute severe kidney injury, metabolic acidosis, metabolic encephalopathy with delirium, acute left parotitis. Started IV bicarbonate dose. Norvasc Cozaar was held. IV Zosyn. 02/01/2022 Patient is seen and evaluated in room at bedside; Patient is resting comfortably in bed. She is tolerating diet. She's had bowel movements Vital signs are reviewed and remained stable; lab review reveals the PVC of 11.4 hemoglobin of 10.6, sodium 137, BUN/creatinine of 32/0.87; BG ranging between 115 to 203 Nephrology following for acute renal injury related to sepsis with staph aureus bacteremia and E. coli UTI with creatinine at 3.64 upon admission; creatinine down to 0.87 this morning; nephrology on board and recommending to continue with IV fluids anticipating worsening renal function due to diarrhea; continue to monitor renal function and electrolytes Objective - Vital Signs Vital signs: Vital Signs Temp 98.0 F 02/01/22 08:53 Pulse 83 02/01/22 08:53 Resp 18 02/01/22 08:53 BP 115/60 02/01/22 08:53 Pulse Ox 95 02/01/22 08:53 FiO2 Intake & Output 01/31/22 02/01/22 02/01/22 18:59 06:59 18:59 Intake Total 3461 1753 Output Total 3 Balance 3461 -3 1753 Intake: IV 10 Invasive Line 3 10 Oral 3451 1753 Output: Urine/Stool Mix 3 Other: Voiding Method Diaper Diaper Diaper Incontinent Incontinent Incontinent # Bowel Movements 3 - Exam GENERAL: Laying in bed, more comfortable EYES: Pupils equal. Conjunctiva normal. HEENT: External appearance of nose and ears normal, oral cavity dry mucous membranes. Swelling over the left parotid. Tender. NECK: JVD not raised; masses not palpable. HEART: First and second heart sounds are normal; no edema. LUNGS: Respiratory rate normal; clear to auscultation. ABDOMEN: Soft, abdominal wall hernia nontender, liver spleen not palpable, no masses palpable. PSYCH: Answering questions more appropriately MUSCULOSKELETAL:No Clubbing/cyanosis;muscles-grossly intact NEUROLOGICAL: Cranial nerves grossly intact; no facial asymmetry, moving all 4 limbs - Labs CBC & Chem 7: 02/01/22 09:56 02/01/22 09:56 Labs: Abnormal Lab Results - Last 24 Hours (Table) 01/31/22 01/31/22 02/01/22 Range/Units 16:54 20:20 09:56 WBC 11.4 H (3.8-10.6) k/uL RBC 3.43 L (3.80-5.40) m/uL Hgb 10.6 L (11.4-16.0) gm/dL Hct 33.9 L (34.0-46.0) % Neutrophils # 9.2 H (1.3-7.7) k/uL Chloride (98-107) mmol/L Carbon Dioxide (22-30) mmol/L BUN (7-17) mg/dL Glucose (74-99) mg/dL POC Glucose (mg/dL) 247 H 252 H (70-110) mg/dL Alkaline Phosphatase (38-126) U/L Total Protein (6.3-8.2) g/dL Albumin (3.5-5.0) g/dL 02/01/22 02/01/22 Range/Units 09:56 11:52 WBC (3.8-10.6) k/uL RBC (3.80-5.40) m/uL Hgb (11.4-16.0) gm/dL Hct (34.0-46.0) % Neutrophils # (1.3-7.7) k/uL Chloride 109 H (98-107) mmol/L Carbon Dioxide 20 L (22-30) mmol/L BUN 32 H (7-17) mg/dL Glucose 115 H (74-99) mg/dL POC Glucose (mg/dL) 203 H (70-110) mg/dL Alkaline Phosphatase 149 H (38-126) U/L Total Protein 5.6 L (6.3-8.2) g/dL Albumin 2.9 L (3.5-5.0) g/dL Microbiology - Last 24 Hours (Table) 01/30/22 08:23 Blood Culture - Preliminary Blood No Growth after 48 hours 01/29/22 14:45 Blood Culture - Preliminary Blood No Growth after 48 hours Assessment and Plan Assessment: 1. Acute severe kidney injury possibly combination of prerenal ATN. Poor oral intake.: Slow to respond Admission creatinine 3.64. IV fluids. Follow renal function. Hold Lasix. 2. Metabolic acidosis from renal failure: Improved IV bicarbonate drip discontinue 3. Acute metabolic encephalopathy with delirium from severe renal failure: Better Follow clinically 4. Acute left parotitis Precipitated by dehydration and occlusion of parotid duct. Possible secondary infection Oral Augmentin and daptomycin. Warm compress 5. Severe constipation from decreased activity Laxative 6. Diabetes mellitus type 2 on oral hypoglycemic Hold Glucophage. Follow Accu-Cheks. Increase Levemir 24 units subcu daily at bedtime. 7. Depression and anxiety Abilify 10 mg a day. Cymbalta 60 mg twice a day. 8 Essential hypertension Hold Norvasc and Cozaar. Lopressor 25 mg twice a day 9. Hyperuricemia Allopurinol 100 mg a day 10. Chronic urinary stress incontinence Oxybutynin 15 mg a day, Myrbetriq 25 mg a day
[2022-02-01 16:58] LABS: Glucose,Whole Blood 149 mg/dL (70-110)
[2022-02-01 20:20] LABS: Glucose,Whole Blood 267 mg/dL (70-110)
[2022-02-01] MEDS: traZODone HCL 50 MG TAB PO SCH (20:35)
[2022-02-01] MEDS: INSULIN DETEMIR (LEVEMIR) 100 UNIT/ML SYR SQ SCH (20:35)
[2022-02-02] MEDS: HYDROcodone/APAP 7.5-325MG 1 EACH TAB PO PRN ×4 (01:36→20:46)
[2022-02-02 06:07] LABS: Glucose,Whole Blood 75 mg/dL (70-110)
[2022-02-02] MEDS: INSULIN ASPART (NovoLOG) 100 UNIT/ML VIAL SQ SCH ×4 (06:12→20:21)
[2022-02-02] MEDS: PANTOPRAZOLE 40 MG TABLET PO SCH (06:14)
[2022-02-02] MEDS: SODIUM CHLORIDE TAB 1 GM TAB PO SCH (08:18)
[2022-02-02] MEDS: SCOPOLAMINE 1 MG/72 HR PATCH TRANSDERM SCH (08:18)
[2022-02-02] MEDS: DULoxetine HCL 60 MG CAPSULE.DR PO SCH ×2 (08:18→20:21)
[2022-02-02] MEDS: AMOXIC-POT CLAV 500-125 MG 1 EACH TAB PO SCH ×2 (08:18→20:45)
[2022-02-02] MEDS: METOPROLOL TARTRATE 25 MG TAB PO SCH ×2 (08:18→20:21)
[2022-02-02] MEDS: ASPIRIN 81 MG PO SCH (08:18)
[2022-02-02] MEDS: ARIPiprazole 10 MG TAB PO SCH (08:18)
[2022-02-02] MEDS: allopurinoL 100 MG TAB PO SCH (08:18)
[2022-02-02] MEDS: ENOXAPARIN 40 MG/0.4 ML SYRINGE SQ SCH (08:21)
[2022-02-02] MEDS: LACTULOSE 20 GM/30 ML CUP PO SCH (08:21)
[2022-02-02] MEDS: SODIUM CHLORIDE 0.9% 1,000 ML IV SCH (08:21)
[2022-02-02] MEDS: NON FORMULARY DRUG (Mirabegron [Myrbetriq] 25 MG Tablet) PO SCH (08:21)
[2022-02-02 09:18] LABS: Calcium 8.6 mg/dL (8.4-10.2); Potassium 4.4 mmol/L (3.5-5.1)
[2022-02-02 11:34] LABS: Glucose,Whole Blood 160 mg/dL (70-110)
--- NOTE | 2022-02-02 12:15 | P.PN ---
Subjective Progress Note Date: 02/02/22 CHIEF COMPLAINT: Constipation HISTORY OF PRESENT ILLNESS: This is a 71-year-old female who presented to the hospital with altered mental status and weakness. She had evidence of UTI, left parotid gland infection and acute kidney injury. Surgical service is following in regards to her constipation. Per nursing staff patient has had 8 bowel movements. They are now more liquidy. Lactulose was held this morning. She is tolerating a full liquid diet. Patient sitting at bedside chair. Denies any ab dominal pain. Denies any nausea or vomiting. PHYSICAL EXAM: VITAL SIGNS: Reviewed GENERAL: Well-developed in no acute distress. HEENT: No sclera icterus. Extraocular movements grossly intact. Moist buccal mucosa. Head is atraumatic, normocephalic. Hears conversational speech. No nasal drain age. NECK: Supple without lymphadenopathy. CHEST: Non-labored respirations and equal bilateral excursions. CARDIOVASCULAR: Palpable 2+ radial pulses. ABDOMEN: Soft. Nondistended. Nontender. MUSCULOSKELETAL: No clubbing or cyanosis. NEUROLOGIC: No focal or lateralizing signs. Cranial nerves II through XII grossly intact. PSYCH: less Confused SKIN: Well perfused. Good skin turgor. ASSESSMENT: 1. Abdominal distention with nausea and episode of vomiting likely secondary to constipation 2. Constipation improving 3. Daily narcotic use 4. Acute kidney injury 5. Left parotid gland infection 6. UTI 7. Hyponatremia 8. Metabolic encephalopathy 9. Hypokalemia improved PLAN: -Check abdominal x-ray for further evaluation and constipation -Decrease lactulose from 3 times a day to daily -Continue full liquid diet -Continue supportive care -Antibiotics per ID service for her infectious process Physician Beef Trimmer note has been reviewed by physician. Signing provider agrees with the documented findings, assessment, and plan of care. Objective - Vital Signs Vital signs: Vital Signs Temp 97.5 F L 02/02/22 07:59 Pulse 103 H 02/02/22 07:59 Resp 17 02/02/22 07:59 BP 136/73 02/02/22 07:59 Pulse Ox 95 02/02/22 07:59 FiO2 Intake & Output 02/01/22 02/02/22 02/02/22 18:59 06:59 18:59 Intake Total 3506 1075 Output Total 300 1 Balance 3506 -300 1074 Intake: IV 10 Invasive Line 3 10 Oral 3506 1065 Output: Urine 300 Stool 1 Other: Voiding Method Diaper Diaper Diaper Incontinent Incontinent Incontinent External Catheter # Voids 1 # Bowel Movements 1 - Labs CBC & Chem 7: 02/01/22 09:56 02/02/22 08:36 Labs: Abnormal Lab Results - Last 24 Hours (Table) 02/01/22 02/01/22 02/01/22 Range/Units 11:52 16:51 20:18 Chloride (98-107) mmol/L BUN (7-17) mg/dL POC Glucose (mg/dL) 203 H 149 H 267 H (70-110) mg/dL 02/02/22 02/02/22 Range/Units 08:36 11:28 Chloride 109 H (98-107) mmol/L BUN 19 H (7-17) mg/dL POC Glucose (mg/dL) 160 H (70-110) mg/dL Microbiology - Last 24 Hours (Table) 01/30/22 08:23 Blood Culture - Preliminary Blood No Growth after 72 hours 01/29/22 14:45 Blood Culture - Preliminary Blood No Growth after 72 hours
--- NOTE | 2022-02-02 14:35 | P.PN ---
Subjective Progress Note Date: 02/02/22 Acute severe kidney injury Metabolic acidosis from renal failure Acute metabolic encephalopathy Acute left parotitis Severe constipation 71-year-old patient, presents to the ER with altered mental status and weakness. 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 Patient has been laying in bed for last 5 days. Not eating or drinking anything. Patient is feeling very weak with a poor appetite. No fever reported. Slight cough. Left-sided facial swelling noted. No trauma reported. Abdominal pain. Decreased urine output. Patient also due to weakness very limited historian right now. Attempting to talk. Chronic stable medical conditions include obesity, depression, hyperlipidemia, urinary incontinence, diabetes mellitus type 2,. Has a legal guardian Marianela Syed. Admitted with acute severe kidney injury, metabolic acidosis, metabolic encephalopathy with delirium, acute left parotitis. Started IV bicarbonate dose. Norvasc Cozaar was held. IV Zosyn. 02/01/2022 Patient is seen and evaluated in room at bedside; Patient is resting comfortably in bed. She is tolerating diet. She's had bowel movements Vital signs are reviewed and remained stable; lab review reveals the PVC of 11.4 hemoglobin of 10.6, sodium 137, BUN/creatinine of 32/0.87; BG ranging between 115 to 203 Nephrology following for acute renal injury related to sepsis with staph aureus bacteremia and E. coli UTI with creatinine at 3.64 upon admission; creatinine down to 0.87 this morning; nephrology on board and recommending to continue with IV fluids anticipating worsening renal function due to diarrhea; continue to monitor renal function and electrolytes 02/02/2022 Patient is seen and evaluated in follow-up this morning currently sitting up in the chair with multiple medical consultations following. General surgery following and has cleared the patient to continue current regimen and will follow-up with the patient in the outpatient setting. Patient continues on IV antibiotics with infectious disease following an waiting on repeat finalized blood cultures to monitor for bacteremia clearance. Most recent repeat blood cultures have been negative for 72 hours. Patient is continued on oral Augmentin and IV daptomycin. Patient is currently afebrile and oxygen saturations are 98% on room air. Patient denies chest pain or shortness of breath. Recommend the patient to continue with lactulose daily and hold if having loose stools. Encouraged oral intake. Review of systems: Constitutional: No reports of fatigue, fever, or chills Cardiovascular: No reports of chest pain or palpitations Respiratory: No reports of shortness of breath or cough GI: No reports of nausea, vomiting, or diarrhea : No reports of dysuria or retention Neurovascular: No reports of weakness or numbness All medications have been reviewed Active Medications Acetaminophen (Acetaminophen Tab 325 Mg Tab) 650 mg PO Q6HR PRN PRN Reason: Mild Pain or Fever > 100.5 Last Admin: 01/30/22 09:16 Dose: 650 mg Hydrocodone Bitart/Acetaminophen (Hydrocodone/Apap 7.5-325mg 1 Each Tab) 1 each PO Q6HR PRN PRN Reason: Pain Last Admin: 02/02/22 08:18 Dose: 1 each Allopurinol (Allopurinol 100 Mg Tab) 100 mg PO DAILY [facility] [place] Last Admin: 02/02/22 08:18 Dose: 100 mg Amoxicillin/Clavulanate Potassium (Amoxic-Pot Clav 500-125 Mg 1 Each Tab) 1 each PO BID [facility] [place]; Protocol Last Admin: 02/02/22 08:18 Dose: 1 each Aripiprazole (Aripiprazole 10 Mg Tab) 10 mg PO DAILY [facility] [place] Last Admin: 02/02/22 08:18 Dose: 10 mg Aspirin (Aspirin 81 Mg) 81 mg PO DAILY [facility] [place] Last Admin: 02/02/22 08:18 Dose: 81 mg Calcium Carbonate/Glycine (Calcium Carbonate 500 Mg Chewable) 1,000 mg PO Q4HR PRN PRN Reason: Dyspepsia Last Admin: 02/01/22 08:53 Dose: 1,000 mg Duloxetine HCl (Duloxetine Hcl 60 Mg Capsule.Dr) 60 mg PO BID [facility] [place] Last Admin: 02/02/22 08:18 Dose: 60 mg Enoxaparin Sodium (Enoxaparin 40 Mg/0.4 Ml Syringe) 40 mg SQ DAILY [facility] [place] Last Admin: 02/02/22 08:21 Dose: 40 mg Sodium Chloride (Saline 0.9%) 1,000 mls @ 50 mls/hr IV .Q20H [facility] [place] Last Admin: 02/02/22 08:21 Dose: Not Given Daptomycin 600 mg/ Sodium (Chloride) 50 mls @ 100 mls/hr IVPB Q24H [facility] [place]; Protocol Last Admin: 02/01/22 20:35 Dose: 100 mls/hr Insulin Aspart (Insulin Aspart (Novolog) 100 Unit/Ml Vial) 0 unit SQ ACHS [facility] [place]; Protocol Last Admin: 02/02/22 11:41 Dose: 1 unit Insulin Detemir (Insulin Detemir (Levemir) 100 Unit/Ml Syr) 24 unit SQ [facility] Last Admin: 02/01/22 20:35 Dose: 24 unit Lactulose (Lactulose 20 Gm/30 Ml Cup) 30 gm PO DAILY [facility] [place] Lorazepam (Lorazepam 0.5 Mg Tab) 0.5 mg PO Q6HR PRN PRN Reason: Anxiety Last Admin: 01/27/22 13:25 Dose: 0.5 mg Metoprolol Tartrate (Metoprolol Tartrate 25 Mg Tab) 25 mg PO BID [facility] [place] Last Admin: 02/02/22 08:18 Dose: 25 mg Miscellaneous Information (Potassium Replacement Protocol 1 Each Misc) 1 each MISCELLANE DAILY PRN; Protocol PRN Reason: Per Protocol Naloxone HCl (Naloxone 0.4 Mg/Ml 1 Ml Vial) 0.2 mg IV Q2M PRN PRN Reason: Opioid Reversal Non-Formulary Medication (Mirabegron [Myrbetriq]) 25 mg PO DAILY [facility] [place] Last Admin: 02/02/22 08:21 Dose: Not Given Ondansetron HCl (Ondansetron 4 Mg/2 Ml Vial) 4 mg IVP Q6HR PRN PRN Reason: Nausea And Vomiting Last Admin: 01/26/22 10:44 Dose: 4 mg Pantoprazole Sodium (Pantoprazole 40 Mg Tablet) 40 mg PO AC-BRKFST [facility] [place] Last Admin: 02/02/22 06:14 Dose: 40 mg Scopolamine (Scopolamine 1 Mg/72 Hr Patch) 1 patch TRANSDERM Q72H [facility] [place] Last Admin: 02/02/22 08:18 Dose: 1 patch Sodium Chloride (Sodium Chloride Tab 1 Gm Tab) 1 gm PO DAILY [facility] [place] Last Admin: 02/02/22 08:18 Dose: 1 gm Trazodone HCl (Trazodone Hcl 50 Mg Tab) 50 mg PO [facility] Last Admin: 02/01/22 20:35 Dose: 50 mg Physical exam: GENERAL: Sitting up in the chair, awake, alert and oriented 3, well-developed, well-nourished, morbidly obese EYES: Pupils equal. Conjunctiva normal. HEENT: External appearance of nose and ears normal, oral cavity dry mucous membranes. Swelling over the left parotid. Tender. NECK: JVD not raised; masses not palpable. HEART: S1, S2 are muffled LUNGS: Diminished breath sounds bilaterally with no wheezing or rhonchi noted ABDOMEN: Soft, obese, nontender, normal bowel sounds noted MUSCULOSKELETAL:No Clubbing/cyanosis;muscles-grossly intact NEUROLOGICAL: Cranial nerves grossly intact; no facial asymmetry, moving all 4 limbs Assessment: acute severe kidney injury possibly combination of prerenal acute tubular necrosis secondary to poor oral intake and diuretic use Metabolic acidosis from acute renal failure Acute metabolic encephalopathy with delirium from severe renal failure Acute left parotitis possibly precipitated by dehydration and occlusion of the parotid duct with a possible secondary infection Severe constipation from decreased activity Diabetes mellitus type 2 History of depression and anxiety Hypertension Hyperuricemia Chronic urinary stress incontinence GI prophylaxis DVT prophylaxis Full code Plan: Recommend continue with current medications and management with multiple medical consultations following. Gen. surgery following an patient is having bowel movements and recommend continue with current bowel regimen and also to continue with lactulose daily Kidney functions improved and recommend outpatient follow-up with nephrology and also repeat labs in the next few days Recommend continue monitoring Accu-Cheks and continue sliding scale along with long-acting Patient is maintained on oral Augmentin along with IV daptomycin and awaiting for repeat blood cultures to finalize, most recent repeat blood cultures have been negative for 72 hours with initial culture showing Staphylococcus aureus PT/OT to evaluate the patient Plan is for returning to rehab and will discuss with case management and social work about discharge planning along with infectious disease if requiring continued antibiotics patient currently does have a midline in the event she may need IV antibiotic therapy for a short course on discharge due to multiple complex medical issues, prognosis is guarded possible discharge in 24 hours The impression and plan of care has been dictated by Danya Christina, Nurse Practitioner as directed. Dr. Cristo MD I have performed a history and examination and MDM of this patient, discussed the same with the dictator, and agree with the dictator's assessment and plan as written ,documented as a scribe. Based on total visit time, I have performed more than 50% of the visit. Objective - Vital Signs Vital signs: Vital Signs Temp 97.7 F 02/02/22 12:27 Pulse 80 02/02/22 12:27 Resp 16 02/02/22 12:27 BP 123/63 02/02/22 12:27 Pulse Ox 98 02/02/22 12:27 FiO2 Intake & Output 02/01/22 02/02/22 02/02/22 18:59 06:59 18:59 Intake Total 3506 1075 Output Total 300 1 Balance 3506 -300 1074 Weight 97.5 kg Intake: IV 10 Invasive Line 3 10 Oral 3506 1065 Output: Urine 300 Stool 1 Other: Voiding Method Diaper Diaper Diaper Incontinent Incontinent Incontinent External Catheter # Voids 1 # Bowel Movements 1 - Labs CBC & Chem 7: 02/01/22 09:56 02/02/22 08:36 Labs: Abnormal Lab Results - Last 24 Hours (Table) 02/01/22 02/01/22 02/02/22 Range/Units 16:51 20:18 08:36 Chloride 109 H (98-107) mmol/L BUN 19 H (7-17) mg/dL POC Glucose (mg/dL) 149 H 267 H (70-110) mg/dL 02/02/22 Range/Units 11:28 Chloride (98-107) mmol/L BUN (7-17) mg/dL POC Glucose (mg/dL) 160 H (70-110) mg/dL Microbiology - Last 24 Hours (Table) 01/30/22 08:23 Blood Culture - Preliminary Blood No Growth after 72 hours 01/29/22 14:45 Blood Culture - Preliminary Blood No Growth after 72 hours
[2022-02-02 16:50] LABS: Glucose,Whole Blood 150 mg/dL (70-110)
--- NOTE | 2022-02-02 17:37 | XR ---
EXAMINATION TYPE: XR abdomen 2V DATE OF EXAM: 02/02/2022 COMPARISON: 01/30/2022 HISTORY: Constipation TECHNIQUE: 4 views FINDINGS: Bowel gas pattern is normal. No sign of intestinal obstruction or pneumoperitoneum. Fecal p attern is normal. No evidence of a mass. IMPRESSION: Nonacute abdomen. Mild pleural reaction and atelectasis is noted at both lung bases. No s ignificant change.
[2022-02-02 20:14] LABS: Glucose,Whole Blood 221 mg/dL (70-110)
[2022-02-02] MEDS: traZODone HCL 50 MG TAB PO SCH (20:21)
[2022-02-02] MEDS: INSULIN DETEMIR (LEVEMIR) 100 UNIT/ML SYR SQ SCH (20:45)
--- NOTE | 2022-02-02 23:43 | P.PN ---
Subjective Progress Note Date: 02/01/22 Principal diagnosis: UTI and bacteremia Patient is a 71-year-old female presenting to the hospital for evaluation of mental status changes and weakness and decision did have a positive UA concerning for a symptomatic UTI also have a large parotid gland on the left side sent for parotitis and did have evidence of Staphylococcus aureus bacteremia. On today's evaluation 02/01/2022, patient remains to be afebrile , the patient is breathing comfortably on room air, patient denies chest pain shortness of breath or cough, the patient is complaining of pain to the left side of the face but no worsening, but denies abdominal pain and no diarrhea Objective - Vital Signs Vital signs: Vital Signs Temp 98.0 F 02/01/22 08:53 Pulse 83 02/01/22 08:53 Resp 18 02/01/22 08:53 BP 115/60 02/01/22 08:53 Pulse Ox 95 02/01/22 08:53 FiO2 Intake & Output 01/31/22 02/01/22 02/01/22 18:59 06:59 18:59 Intake Total 3461 1753 Output Total 3 Balance 3461 -3 1753 Intake: IV 10 Invasive Line 3 10 Oral 3451 1753 Output: Urine/Stool Mix 3 Other: Voiding Method Diaper Diaper Diaper Incontinent Incontinent Incontinent # Bowel Movements 3 - Exam GENERAL DESCRIPTION: An elderly female lying in bed in no distress RESPIRATORY SYSTEM: Unlabored breathing , decreased breath sounds at bases HEART: S1 S2 regular rate and rhythm , ABDOMEN: Soft , no tenderness EXTREMITIES: No edema feet - Labs CBC & Chem 7: 02/01/22 09:56 02/02/22 08:36 Labs: Abnormal Lab Results - Last 24 Hours (Table) 01/31/22 01/31/22 02/01/22 Range/Units 16:54 20:20 09:56 WBC 11.4 H (3.8-10.6) k/uL RBC 3.43 L (3.80-5.40) m/uL Hgb 10.6 L (11.4-16.0) gm/dL Hct 33.9 L (34.0-46.0) % Neutrophils # 9.2 H (1.3-7.7) k/uL Chloride (98-107) mmol/L Carbon Dioxide (22-30) mmol/L BUN (7-17) mg/dL Glucose (74-99) mg/dL POC Glucose (mg/dL) 247 H 252 H (70-110) mg/dL Alkaline Phosphatase (38-126) U/L Total Protein (6.3-8.2) g/dL Albumin (3.5-5.0) g/dL 02/01/22 02/01/22 Range/Units 09:56 11:52 WBC (3.8-10.6) k/uL RBC (3.80-5.40) m/uL Hgb (11.4-16.0) gm/dL Hct (34.0-46.0) % Neutrophils # (1.3-7.7) k/uL Chloride 109 H (98-107) mmol/L Carbon Dioxide 20 L (22-30) mmol/L BUN 32 H (7-17) mg/dL Glucose 115 H (74-99) mg/dL POC Glucose (mg/dL) 203 H (70-110) mg/dL Alkaline Phosphatase 149 H (38-126) U/L Total Protein 5.6 L (6.3-8.2) g/dL Albumin 2.9 L (3.5-5.0) g/dL Microbiology - Last 24 Hours (Table) 01/30/22 08:23 Blood Culture - Preliminary Blood No Growth after 48 hours 01/29/22 14:45 Blood Culture - Preliminary Blood No Growth after 48 hours Assessment and Plan (1) Infection of parotid gland Current Visit: Yes Status: Acute Code(s): K11.20 - SIALOADENITIS, UNSPECIFIED SNOMED Code(s): 603817254 (2) UTI (urinary tract infection) Current Visit: Yes Status: Acute Code(s): N39.0 - URINARY TRACT INFECTION, SITE NOT SPECIFIED SNOMED Code(s): 75065418 Plan: 1patient presented to hospital with weakness mental status changes likely multifactorial in this patient did have a significant positive UA likely concerning for a symptomatic UTI and evidence of asymmetric enlargement of the left parotid gland concerning for possible parotitis. 2 patient with MSSA bacteremia likely secondary to parotitis, repeat blood cultures 01/29/2022 has been negative patient did have cephalexin ALLERGY hence we'll continue the daptomycin and monitor clinical course closely 3patient with E. coli. Urinary tract infection, patient to continue with Augmentin Time with Patient: Less than 30
--- NOTE | 2022-02-02 23:44 | P.PN ---
Subjective Progress Note Date: 02/02/22 Principal diagnosis: UTI and bacteremia Patient is a 71-year-old female presenting to the hospital for evaluation of mental status changes and weakness and decision did have a positive UA concerning for a symptomatic UTI also have a large parotid gland on the left side sent for parotitis and did have evidence of Staphylococcus aureus bacteremia. On today's evaluation 02/02/2022, patient denies any fever or chills , the patient is breathing comfortably on room air, patient denies chest pain shortness of breath or cough, the patient pain to the left side of the face has decreased in intensity, the patient denies abdominal pain and no diarrhea Objective - Vital Signs Vital signs: Vital Signs Temp 97.7 F 02/02/22 12:27 Pulse 80 02/02/22 12:27 Resp 16 02/02/22 12:27 BP 123/63 02/02/22 12:27 Pulse Ox 98 02/02/22 12:27 FiO2 Intake & Output 02/01/22 02/02/22 02/02/22 18:59 06:59 18:59 Intake Total 3506 1325 Output Total 300 1 Balance 3506 -300 1324 Weight 97.5 kg Intake: IV 20 Invasive Line 3 20 Oral 3506 1305 Output: Urine 300 Stool 1 Other: Voiding Method Diaper Diaper Diaper Incontinent Incontinent Incontinent External Catheter # Voids 1 # Bowel Movements 1 - Exam GENERAL DESCRIPTION: An elderly female lying in bed in no distress HEENT left-sided parotid swelling and tenderness and decreased RESPIRATORY SYSTEM: Unlabored breathing , decreased breath sounds at bases HEART: S1 S2 regular rate and rhythm , ABDOMEN: Soft , no tenderness EXTREMITIES: No edema feet - Labs CBC & Chem 7: 02/01/22 09:56 02/02/22 08:36 Labs: Abnormal Lab Results - Last 24 Hours (Table) 02/01/22 02/01/22 02/02/22 Range/Units 16:51 20:18 08:36 Chloride 109 H (98-107) mmol/L BUN 19 H (7-17) mg/dL POC Glucose (mg/dL) 149 H 267 H (70-110) mg/dL 02/02/22 Range/Units 11:28 Chloride (98-107) mmol/L BUN (7-17) mg/dL POC Glucose (mg/dL) 160 H (70-110) mg/dL Microbiology - Last 24 Hours (Table) 01/30/22 08:23 Blood Culture - Preliminary Blood No Growth after 72 hours 01/29/22 14:45 Blood Culture - Preliminary Blood No Growth after 72 hours Assessment and Plan (1) Infection of parotid gland Current Visit: Yes Status: Acute Code(s): K11.20 - SIALOADENITIS, UNSPECIFIED SNOMED Code(s): 897379046 (2) UTI (urinary tract infection) Current Visit: Yes Status: Acute Code(s): N39.0 - URINARY TRACT INFECTION, SITE NOT SPECIFIED SNOMED Code(s): 03871423 Plan: 1patient presented to hospital with weakness mental status changes likely multifactorial in this patient did have a significant positive UA likely concerning for a symptomatic UTI and evidence of asymmetric enlargement of the left parotid gland concerning for possible parotitis. 2 patient with MSSA bacteremia likely secondary to parotitis, repeat blood cultures 01/29/2022 has been negative patient did have cephalexin ALLERGY hence we'll continue the daptomycin and plan is for total of 2 weeks of IV daptomycin from a negative blood culture 3patient with E. coli. Urinary tract infection, patient to continue with Augmentin 5 more days Time with Patient: Less than 30
[2022-02-03] MEDS: HYDROcodone/APAP 7.5-325MG 1 EACH TAB PO PRN ×3 (03:33→15:21)
[2022-02-03] MEDS: SODIUM CHLORIDE 0.9% 1,000 ML IV SCH (05:23)
[2022-02-03 06:19] LABS: Glucose,Whole Blood 54 mg/dL (70-110)
[2022-02-03] MEDS: INSULIN ASPART (NovoLOG) 100 UNIT/ML VIAL SQ SCH ×2 (06:20→12:11)
[2022-02-03] MEDS: PANTOPRAZOLE 40 MG TABLET PO SCH (06:23)
[2022-02-03 06:33] LABS: Glucose,Whole Blood 59 mg/dL (70-110)
[2022-02-03 06:53] LABS: Glucose,Whole Blood 69 mg/dL (70-110)
[2022-02-03 07:14] LABS: Glucose,Whole Blood 79 mg/dL (70-110)
[2022-02-03] MEDS ORDERED: LACTULOSE 20 GM/30 ML CUP PO PRN (08:20)
[2022-02-03 08:25] LABS: Glucose,Whole Blood 112 mg/dL (70-110)
[2022-02-03] MEDS ORDERED: LACTULOSE 20 GM/30 ML CUP PO SCH (09:00)
[2022-02-03] MEDS: ASPIRIN 81 MG PO SCH (09:16)
[2022-02-03] MEDS: ARIPiprazole 10 MG TAB PO SCH (09:16)
[2022-02-03] MEDS: AMOXIC-POT CLAV 500-125 MG 1 EACH TAB PO SCH (09:16)
[2022-02-03] MEDS: METOPROLOL TARTRATE 25 MG TAB PO SCH (09:16)
[2022-02-03] MEDS: ENOXAPARIN 40 MG/0.4 ML SYRINGE SQ SCH (09:17)
[2022-02-03] MEDS: allopurinoL 100 MG TAB PO SCH (09:17)
[2022-02-03] MEDS: DULoxetine HCL 60 MG CAPSULE.DR PO SCH (09:17)
[2022-02-03] MEDS: SODIUM CHLORIDE TAB 1 GM TAB PO SCH (09:17)
[2022-02-03 11:55] LABS: Glucose,Whole Blood 126 mg/dL (70-110)
[2022-02-03] MEDS: NON FORMULARY DRUG (Mirabegron [Myrbetriq] 25 MG Tablet) PO SCH (12:12)
[2022-02-03] MEDS ORDERED: NYSTATIN 100,000 UNIT/ML SUSP 500,000 UNIT/5 ML CUP PO SCH (13:00)
--- NOTE | 2022-02-03 13:36 | P.PN ---
Subjective Progress Note Date: 02/03/22 CHIEF COMPLAINT: Constipation HISTORY OF PRESENT ILLNESS: This is a 71-year-old female who presented to the hospital with altered mental status and weakness. She had evidence of UTI, left parotid gland infection and acute kidney injury. Surgical service is following in regards to her constipation. Patient is having diarrhea. Her abdominal x- ray no longer shows constipation. She denies any abdominal pain. Denies any nausea or vomiting. Afebrile PHYSICAL EXAM: VITAL SIGNS: Reviewed GENERAL: Well-developed in no acute distress. HEENT: No sclera icterus. Extraocular movements grossly intact. Moist buccal mucosa. Head is atraumatic, normocephalic. Hears conversational speech. No nasal janet inage. NECK: Supple without lymphadenopathy. CHEST: Non-labored respirations and equal bilateral excursions. CARDIOVASCULAR: Palpable 2+ radial pulses. ABDOMEN: Soft. Nondistended. Nontender. MUSCULOSKELETAL: No clubbing or cyanosis. NEUROLOGIC: No focal or lateralizing signs. Cranial nerves II through XII grossly intact. PSYCH: less Confused SKIN: Well perfused. Good skin turgor. ASSESSMENT: 1. Abdominal distention with nausea and episode of vomiting likely secondary to constipation 2. Constipation improving 3. Daily narcotic use 4. Acute kidney injury 5. Left parotid gland infection 6. UTI 7. Hyponatremia 8. Metabolic encephalopathy 9. Hypokalemia improved PLAN: -Advance diet to a heart healthy -We will change lactulose to as needed daily -Antibiotics per ID service for her infectious process -Continue supportive care -Surgical service will sign off. Please call with any questions or concerns Physician Tube Rebuilder note has been reviewed by physician. Signing provider agrees with the documented findings, assessment, and plan of care. Objective - Vital Signs Vital signs: Vital Signs Temp 98.4 F 02/03/22 08:00 Pulse 98 02/03/22 08:00 Resp 22 02/03/22 08:00 BP 127/81 02/03/22 08:00 Pulse Ox 95 02/03/22 08:00 FiO2 Intake & Output 02/02/22 02/03/22 02/03/22 18:59 06:59 18:59 Intake Total 2643 118 Output Total 1 Balance 2642 118 Weight 97.5 kg Intake: IV 20 Invasive Line 3 20 Oral 2623 118 Output: Stool 1 Other: Voiding Method Diaper Diaper Incontinent Incontinent # Voids 1 1 # Bowel Movements 3 1 - Labs CBC & Chem 7: 02/01/22 09:56 02/02/22 08:36 Labs: Abnormal Lab Results - Last 24 Hours (Table) 02/02/22 02/02/22 02/03/22 Range/Units 16:47 20:12 06:17 POC Glucose (mg/dL) 150 H 221 H 54 L (70-110) mg/dL 02/03/22 02/03/22 02/03/22 Range/Units 06:32 06:51 08:24 POC Glucose (mg/dL) 59 L 69 L 112 H (70-110) mg/dL 02/03/22 Range/Units 11:53 POC Glucose (mg/dL) 126 H (70-110) mg/dL Microbiology - Last 24 Hours (Table) 01/30/22 08:23 Blood Culture - Preliminary Blood No Growth after 96 hours 01/29/22 14:45 Blood Culture - Preliminary Blood No Growth after 96 hours
--- NOTE | 2022-02-03 13:43 | P.DS ---
Providers Date of admission: 01/25/22 22:20 Expected date of discharge: 02/03/22 Attending physician: Augustus Jackson Consults: 01/25/22 22:20 Consult Physician Urgent Consulting Provider: Alesha Johnson Consult Reason/Comments: delmar/ckd Do you want consulting provider notified?: Yes 01/25/22 22:40 Consult Physician Urgent Consulting Provider: Dru Encarnacion Consult Reason/Comments: uti, hx vre Do you want consulting provider notified?: Yes 01/26/22 01:15 Consult Physician Urgent Consulting Provider: Marci Rodriguez Consult Reason/Comments: Possible bowel obstruction Do you want consulting provider notified?: Yes, Notify in am Primary care physician: Collin Waller MD Hospital Course: Final diagnosis acute severe kidney injury possibly combination of prerenal acute tubular necrosis secondary to poor oral intake and diuretic use Metabolic acidosis from acute renal failure Acute metabolic encephalopathy with delirium from severe renal failure Acute left parotitis possibly precipitated by dehydration and occlusion of the parotid duct with a possible secondary infection Severe constipation from decreased activity Oral thrush Diabetes mellitus type 2 History of depression and anxiety Hypertension Hyperuricemia Chronic urinary stress incontinence GI prophylaxis DVT prophylaxis Full code Discharge disposition Patient is being discharged in a stable condition with guarded prognosis to [facility] for continued PT/OT therapy. Patient will follow-up with Dr. Raiza Patel in the outpatient setting upon discharge. Patient will continue on IV antibiotics in the form of daptomycin daily for the next 2 weeks along with oral Augmentin twice daily for the next 5 days to complete the course. Recommend patient to continue subcutaneous Lovenox until more mobile. Patient to follow-up with nephrology outpatient in 1-2 weeks. Total time taken is greater than 35 minutes. Hospital course This is a 71-year-old female who was recently admitted with weakness and altered mental status most likely multifactorial and also found to have an acute urinary tract infection, present on admission with cultures finalizing E. coli and also MSSA bacteremia possibly secondary to parotid gland swelling and infection and was being closely monitored by infectious disease. Patient was maintained on IV antibiotic therapy and will continue with IV daptomycin daily for the next 2 weeks along with oral Augmentin twice daily for the next 5 days to complete the course. Patient to follow-up with primary care provider along with nephrology in the outpatient setting. Patient was also seen and evaluated by general surgery for severe constipation and patient is having bowel movements and recommend to continue with when necessary bowel regimen. Recommend repeat labs of CBC and BMP in the outpatient setting in the next 2-3 days. Recommend to continue holding diuretics for now. Patient with some features of thrush and will continue nystatin swish and swallow 4 times daily for the next 1 week and also recommend yogurt with each meal. Patient continues with weakness and will continue with PT/OT therapy at [facility]. Currently no reports of chest pain, sh ortness of breath, or palpitations. Patient is afebrile. No reports of nausea or vomiting and patient is tolerating diet. Patient will be going to [facility] today. Guarded prognosis. On exam vital signs are stable. Cardio S1, S2 are muffled. Respiratory system shows diminished breath sounds at the bases with no wheezing or rhonchi noted. Abdomen is soft and obese, and nontender. Nervous system shows diffuse weakness. Please refer to medication reconciliation sheet for a list of medications. The impression and plan of care has been dictated by Danya Christina, Nurse Practitioner as directed. Dr. Cristo MD I have performed a history and examination and MDM of this patient, discussed the same with the dictator, and agree with the dictator's assessment and plan as written ,documented as a scribe. Based on total visit time, I have performed more than 50% of the visit. Patient Condition at Discharge: Stable Plan - Discharge Summary New Discharge Prescriptions: New Amoxic-Pot Clav 500-125 mg [Augmentin 500-125 mg] 1 each PO BID 5 Days #10 tab Lactulose [Cephulac] 30 gm PO DAILY PRN ml PRN Reason: Constipation INSULIN ASPART (NovoLOG) [NovoLOG (formulary)] 0 unit SQ ACHS each Pantoprazole [Protonix] 40 mg PO AC-BRKFST tab Acetaminophen Tab [Tylenol] 650 mg PO Q6HR PRN tab PRN Reason: Mild Pain Or Fever > 100.5 Folic Acid 1 mg PO DAILY #30 tablet Thiamine [Vitamin B-1] 100 mg PO DAILY #30 tablet DAPTOmycin [Cubicin] 600 mg IVPB Q24H 14 Days #14 each Enoxaparin [Lovenox] 40 mg SQ DAILY each HYDROcodone/APAP 7.5-325MG [[place] 7.5-325] 1 each PO Q6HR PRN #4 tab PRN Reason: Pain Sodium Chloride Tab 1 gm PO DAILY tab Scopolamine 1 mg/72 Hr Patch [TransDerm Scop] 1 patch TRANSDERM Q72H patch Calcium Carbonate [Tums] 1,000 mg PO Q4HR PRN tab PRN Reason: Dyspepsia Nystatin 100,000 Unit/ml Susp [Mycostatin Oral Susp] 500,000 unit PO QID ml Continue Aspirin 81 mg PO DAILY #30 chew Ergocalciferol (Vitamin D2) [Vitamin D2] 50,000 unit PO Q7D Cranberry Fruit Extract [Cranberry] 500 mg PO HS Atorvastatin [Lipitor] 40 mg PO HS metFORMIN HCL [Glucophage] 1,000 mg PO BID #1 tab Metoprolol Tartrate [Lopressor] 25 mg PO BID #0 Losartan [Cozaar] 25 mg PO DAILY ARIPiprazole [Abilify] 10 mg PO DAILY Docusate [Colace] 100 mg PO DAILY PRN PRN Reason: Constipation Multivitamins, Thera [Multivitamin (formulary)] 1 tab PO DAILY Loratadine [Claritin] 10 mg PO DAILY allopurinoL [Zyloprim] 100 mg PO DAILY Pioglitazone [Actos] 45 mg PO DAILY DULoxetine HCL [Cymbalta] 60 mg PO BID traZODone HCL 50 mg PO HS Mirabegron [Myrbetriq] 25 mg PO DAILY Changed amLODIPine [Norvasc] 5 mg PO DAILY #0 Discontinued Pantoprazole Sodium [Protonix] 20 mg PO DAILY HYDROcodone/APAP 10-325MG [[place] 10-325] 1 tab PO Q6H PRN PRN Reason: Pain Ferrous Sulfate [Feosol] 325 mg PO DAILY Furosemide [Lasix] 20 mg PO BID Oxybutynin Chloride [Oxybutynin Chloride ER] 15 mg PO DAILY Acetaminophen [Tylenol Arthritis] 650 mg PO Q6H PRN PRN Reason: Pain Discharge Medication List Aspirin 81 mg PO DAILY #30 chew 11/16/16 [Rx] Atorvastatin [Lipitor] 40 mg PO HS 11/13/17 [History] Cranberry Fruit Extract [Cranberry] 500 mg PO HS 11/13/17 [History] Ergocalciferol (Vitamin D2) [Vitamin D2] 50,000 unit PO Q7D 11/13/17 [History] Metoprolol Tartrate [Lopressor] 25 mg PO BID #0 11/30/17 [Rx] metFORMIN HCL [Glucophage] 1,000 mg PO BID #1 tab 11/30/17 [Rx] ARIPiprazole [Abilify] 10 mg PO DAILY 07/22/21 [History] DULoxetine HCL [Cymbalta] 60 mg PO BID 07/22/21 [History] Docusate [Colace] 100 mg PO DAILY PRN 07/22/21 [History] Loratadine [Claritin] 10 mg PO DAILY 07/22/21 [History] Losartan [Cozaar] 25 mg PO DAILY 07/22/21 [History] Mirabegron [Myrbetriq] 25 mg PO DAILY 07/22/21 [History] Multivitamins, Thera [Multivitamin (formulary)] 1 tab PO DAILY 07/22/21 [History] traZODone HCL 50 mg PO HS 07/22/21 [History] Pioglitazone [Actos] 45 mg PO DAILY 01/26/22 [History] allopurinoL [Zyloprim] 100 mg PO DAILY 01/26/22 [History] Acetaminophen Tab [Tylenol] 650 mg PO Q6HR PRN tab 02/03/22 [Rx] Amoxic-Pot Clav 500-125 mg [Augmentin 500-125 mg] 1 each PO BID 5 Days #10 tab 02/03/22 [Rx] Calcium Carbonate [Tums] 1,000 mg PO Q4HR PRN tab 02/03/22 [Rx] DAPTOmycin [Cubicin] 600 mg IVPB Q24H 14 Days #14 each 02/03/22 [Rx] Enoxaparin [Lovenox] 40 mg SQ DAILY each 02/03/22 [Rx] Folic Acid 1 mg PO DAILY #30 tablet 02/03/22 [Rx] HYDROcodone/APAP 7.5-325MG [[place] 7.5-325] 1 each PO Q6HR PRN #4 tab 02/03/22 [Rx] INSULIN ASPART (NovoLOG) [NovoLOG (formulary)] 0 unit SQ ACHS each 02/03/22 [Rx] Lactulose [Cephulac] 30 gm PO DAILY PRN ml 02/03/22 [Rx] Nystatin 100,000 Unit/ml Susp [Mycostatin Oral Susp] 500,000 unit PO QID ml 02/03/22 [Rx] Pantoprazole [Protonix] 40 mg PO AC-BRKFST tab 02/03/22 [Rx] Scopolamine 1 mg/72 Hr Patch [TransDerm Scop] 1 patch TRANSDERM Q72H patch 02/03/22 [Rx] Sodium Chloride Tab 1 gm PO DAILY tab 02/03/22 [Rx] Thiamine [Vitamin B-1] 100 mg PO DAILY #30 tablet 02/03/22 [Rx] amLODIPine [Norvasc] 5 mg PO DAILY #0 02/03/22 [Rx] Follow up Appointment(s)/Referral(s): Collin Waller MD [Primary Care Provider] - 1-2 days Ambulatory/Diagnostic Orders: Complete Blood Count w/diff [LAB.AMB] Time Frame: 3 Days, Location: None Selected Activity/Diet/Wound Care/Special Instructions: Patient is going to [facility] Activity as tolerated Recommend continue IV daptomycin daily for the next 2 weeks along with oral Augmentin twice daily for the next 5 days Recommend repeat labs of CBC BMP in 2-3 days Recommend to continue with heart healthy diet with low potassium low phosphorus and low sodium 2000 mg and also consistent carb, recommend yogurt with meals Recommend continue monitoring Accu-Cheks before meals and at bedtime Recommend continue sliding scale and resume oral diabetic agents Recommend continue nystatin swish and swallow 4 times daily for the next 1 week NovoLog sliding scale 0-150 equals 0 units 151-200 equals 2 units 201-250 equals 4 units 251-300 equals 6 units 301-350 equals 8 units 351-400 equals 10 units Please notify provider if blood sugar is 400 or above . Recommend outpatient follow-up with surgery along with nephrology in 1-2 weeks Discharge Disposition: TRANSFER TO SNF/ECF
[2022-02-03 16:39] VITALS: RESP 20
[2022-02-03 16:39] LABS: Glucose,Whole Blood 164 mg/dL (70-110)
[2022-02-03 16:40] VITALS: BP 135/80; PULSE 76; TEMP 98.5
== END 2022-02-03 17:00 | DRG 871 ==
LOC: EC 18:22 → 3SCARD 22:20
PROVIDERS: ADMIT Hospitalist; ATTEND Hospitalist
DX: A41.2 Sepsis due to unspecified staphylococcus (principal); G93.41 Metabolic encephalopathy; N17.0 Acute kidney failure with tubular necrosis; B37.0 Candidal stomatitis; E87.1 Hypo-osmolality and hyponatremia; E87.2 Acidosis; F05 Delirium due to known physiological condition; N18.4 Chronic kidney disease, stage 4 (severe); Z68.42 Body mass index [BMI] 45.0-49.9, adult; N39.0 Urinary tract infection, site not specified; K11.21 Acute sialoadenitis; B95.61 Methicillin susceptible Staphylococcus aureus infection as the cause of diseases classified elsewhere; B96.20 Unspecified Escherichia coli [E. coli] as the cause of diseases classified elsewhere; Z85.118 Personal history of other malignant neoplasm of bronchus and lung; Z90.2 Acquired absence of lung [part of]; E11.22 Type 2 diabetes mellitus with diabetic chronic kidney disease; J44.9 Chronic obstructive pulmonary disease, unspecified; J84.10 Pulmonary fibrosis, unspecified; E66.01 Morbid (severe) obesity due to excess calories; R65.20 Severe sepsis without septic shock; I12.9 Hypertensive chronic kidney disease with stage 1 through stage 4 chronic kidney disease, or unspecified chronic kidney disease; F10.21 Alcohol dependence, in remission; F31.9 Bipolar disorder, unspecified; F41.9 Anxiety disorder, unspecified; G89.29 Other chronic pain; H91.90 Unspecified hearing loss, unspecified ear; E86.1 Hypovolemia; E87.6 Hypokalemia; E86.0 Dehydration; Z20.822 Contact with and (suspected) exposure to COVID-19; I25.10 Atherosclerotic heart disease of native coronary artery without angina pectoris; E78.5 Hyperlipidemia, unspecified; I25.2 Old myocardial infarction; I49.3 Ventricular premature depolarization; K21.9 Gastro-esophageal reflux disease without esophagitis; K43.9 Ventral hernia without obstruction or gangrene; M51.35 Other intervertebral disc degeneration, thoracolumbar region; R53.81 Other malaise; E79.0 Hyperuricemia without signs of inflammatory arthritis and tophaceous disease; T50.2X5A Adverse effect of carbonic-anhydrase inhibitors, benzothiadiazides and other diuretics, initial encounter; R29.6 Repeated falls; K59.00 Constipation, unspecified; M19.90 Unspecified osteoarthritis, unspecified site; N39.3 Stress incontinence (female) (male); Z79.4 Long term (current) use of insulin; Z79.82 Long term (current) use of aspirin; Z79.84 Long term (current) use of oral hypoglycemic drugs; Z79.891 Long term (current) use of opiate analgesic; Z79.899 Other long term (current) drug therapy; Z86.010 Personal history of colon polyps; Z91.81 History of falling; Z88.1 Allergy status to other antibiotic agents; Z98.890 Other specified postprocedural states; Z98.42 Cataract extraction status, left eye; Z98.41 Cataract extraction status, right eye; Z95.5 Presence of coronary angioplasty implant and graft; Z86.718 Personal history of other venous thrombosis and embolism
CPT/HCPCS: 36410; 36415; 70450; 70490; 71046; 74018; 74019; 74176; 76937; 80048; 80053; 81001; 82533; 82550; 82803; 83605; 83735; 83930; 83935; 84132; 84145; 84300; 84439; 84443; 84484; 85025; 86140; 87040; 87077; 87086; 87186; 87635; 94760; 96361; 96365; 99285

== ENCOUNTER 2023-05-31 23:00 | Inpatient (IN) | payer MEDICARE, OTHER ==
[2023-05-31] MEDS ORDERED: ONDANSETRON 4 MG/2 ML VIAL IVP STA (23:40)
[2023-05-31] MEDS ORDERED: SODIUM CHLORIDE 0.9% 500 ML 500 ML IV STA (23:40)
[2023-05-31] MEDS ORDERED: MORPHINE SULFATE 4 MG/ML SYRINGE IVP STA (23:45)
[2023-06-01 01:11] LABS: Basophils % (A) 0 %; Eosinophils # (A) 0.1 k/uL (0-0.7); Eosinophils % (A) 0 %; HCT 43.9 % (34.0-46.0); HGB 14.3 gm/dL (11.4-16.0); Lymphocytes # (A) 1.1 k/uL (1.0-4.8); Lymphocytes % (A) 7 %; MCH 30.6 pg (25.0-35.0); MCHC 32.6 g/dL (31.0-37.0); MCV 93.7 fL (80.0-100.0); Mean Platelet Volume 9.6; Monocytes % (A) 6 %; Neutrophils # (A) 13.8 k/uL (1.3-7.7); Neutrophils % (A) 86 %; Platelet Count 258 k/uL (150-450); RBC 4.68 m/uL (3.80-5.40); RDW 13.8 % (11.5-15.5); WBC 16.1 k/uL (3.8-10.6)
[2023-06-01 01:33] LABS: Amorphous Sediment,Urine Rare /hpf; Bacteria,Urine Many /hpf; Hyaline Casts,Urine 1 /lpf (0-2); RBC,Urine 2 /hpf (0-5); Squamous Epithelial Cell,Urine 1 /hpf (0-4); WBC,Urine 57 /hpf (0-5)
[2023-06-01 01:38] LABS: Appearance,Urine Slightly Cloudy (Clear); Color,Urine Yellow; Specific Gravity,Urine 1.004 (1.001-1.035)
[2023-06-01 01:39] LABS: Bilirubin,Urine Negative (Negative); Blood,Urine Trace (Negative); Glucose,Urine (UA) 4+ (Negative); Ketones,Urine Negative (Negative); Leukocyte Esterase,Urine Large (Negative); Nitrite,Urine Negative (Negative); PH, Urine 5.5 (5.0-8.0); Protein,Urine 1+ (Negative); Urobilinogen,Urine 0.2 mg/dL (<2.0)
--- NOTE | 2023-06-01 01:47 | XR ---
EXAM: XR Chest, 2 Views CLINICAL HISTORY: chest pain TECHNIQUE: Frontal and lateral views of the chest. COMPARISON: 01/25/22 FINDINGS: Lungs: Suspect small patchy airspace opacities over bilateral lower lung zones. Pleural space: Unremarkable. No pneumothorax. Heart: Cardiomegaly. Mediastinum: Calcified aorta Bones/joints: No acute findings. IMPRESSION: Suspect small patchy airspace opacities over bilateral lower lung zones, may represent atelectasis and/or pneumonia.
[2023-06-01 02:18] LABS: INR 0.9 (<1.2); Prothrombin Time 9.8 sec (10.0-12.5)
[2023-06-01 02:40] LABS: ALT 25 U/L (4-34); AST 21 U/L (14-36); African American GFR (CKD) 44 (>60 ml/min/1.73 sqM); Albumin 3.6 g/dL (3.5-5.0); Alkaline Phosphatase 141 U/L (38-126); Amylase 59 U/L (30-110); Anion Gap 8 mmol/L; Blood Urea Nitrogen 47 mg/dL (7-17); Calcium 8.8 mg/dL (8.4-10.2); Carbon Dioxide 22 mmol/L (22-30); Chloride 94 mmol/L (98-107); Lipase 188 U/L (23-300); Non-African American GFR(CKD) 38 (>60 ml/min/1.73 sqM); Potassium 5.4 mmol/L (3.5-5.1); Sodium 124 mmol/L (137-145); Total Bilirubin 0.7 mg/dL (0.2-1.3); Total Protein 6.3 g/dL (6.3-8.2)
[2023-06-01 02:50] LABS: Glucose 535 mg/dL (74-99)
[2023-06-01] MEDS ORDERED: INSULIN REGULAR 100 UNIT/ML VIAL (IV) IV ONE (02:58)
[2023-06-01] MEDS ORDERED: LEVOFLOXACIN 500MG-D5W PMX 500 MG in DEXTROSE/WATER 1 100ML.BAG IVPB STA (03:02)
[2023-06-01] MEDS ORDERED: ASPIRIN 81 MG PO STA (03:03)
[2023-06-01] MEDS ORDERED: NALOXONE 0.4 MG/ML 1 ML VIAL IV PRN (03:12)
[2023-06-01] MEDS ORDERED: ACETAMINOPHEN TAB 325 MG TAB PO PRN (03:12)
--- NOTE | 2023-06-01 03:15 | ED ---
Female Urogenital HPI - General Chief complaint: Urogenital Stated complaint: uti Time Seen by Provider: 05/31/23 23:14 Source: patient Mode of arrival: wheelchair Limitations: no limitations - History of Present Illness Initial comments: 73-year-old female with history of CAD, COPD, diabetes, hypertension, hyperlipidemia, obesity presenting with multiple complaints. Patient comes from assisted living. Patient is complaining of chest pressure. Has been present for the last 2 days. She admits to corresponding shortness of breath. Patient also admits to lower abdominal cramping as well as urinary urgency and frequency. This has been present for the last 4 days. She admits to nausea and vomiting. Patient states "I think I have a UTI". No fever, chills, numbness, tingling, weakness. - Related Data Home Medications Medication Instructions Recorded Confirmed Atorvastatin [Lipitor] 40 mg PO HS 11/13/17 01/26/22 Cranberry Fruit Extract [Cranberry] 500 mg PO HS 11/13/17 01/26/22 Ergocalciferol (Vitamin D2) 50,000 unit PO Q7D 11/13/17 01/26/22 [Vitamin D2] ARIPiprazole [Abilify] 10 mg PO DAILY 07/22/21 01/26/22 DULoxetine HCL [Cymbalta] 60 mg PO BID 07/22/21 01/26/22 Docusate [Colace] 100 mg PO DAILY PRN 07/22/21 01/26/22 Loratadine [Claritin] 10 mg PO DAILY 07/22/21 01/26/22 Losartan [Cozaar] 25 mg PO DAILY 07/22/21 01/26/22 Mirabegron [Myrbetriq] 25 mg PO DAILY 07/22/21 01/26/22 Multivitamins, Thera [Multivitamin 1 tab PO DAILY 07/22/21 01/26/22 (formulary)] traZODone HCL 50 mg PO HS 07/22/21 01/26/22 Pioglitazone [Actos] 45 mg PO DAILY 01/26/22 01/26/22 allopurinoL [Zyloprim] 100 mg PO DAILY 01/26/22 01/26/22 Previous Rx's Medication Instructions Recorded Aspirin 81 mg PO DAILY #30 chew 11/16/16 Metoprolol Tartrate [Lopressor] 25 mg PO BID #0 11/30/17 metFORMIN HCL [Glucophage] 1,000 mg PO BID #1 tab 11/30/17 Acetaminophen Tab [Tylenol] 650 mg PO Q6HR PRN tab 02/03/22 Amoxic-Pot Clav 500-125 mg 1 each PO BID 5 Days #10 tab 02/03/22 [Augmentin 500-125 mg] Calcium Carbonate [Tums] 1,000 mg PO Q4HR PRN tab 02/03/22 DAPTOmycin [Cubicin] 600 mg IVPB Q24H 14 Days #14 each 02/03/22 Enoxaparin [Lovenox] 40 mg SQ DAILY each 02/03/22 Folic Acid 1 mg PO DAILY #30 tablet 02/03/22 HYDROcodone/APAP 7.5-325MG [[place] 1 each PO Q6HR PRN #4 tab 02/03/22 7.5-325] INSULIN ASPART (NovoLOG) [NovoLOG 0 unit SQ ACHS each 02/03/22 (formulary)] Lactulose [Cephulac] 30 gm PO DAILY PRN ml 02/03/22 Nystatin 100,000 Unit/ml Susp 500,000 unit PO QID ml 02/03/22 [Mycostatin Oral Susp] Pantoprazole [Protonix] 40 mg PO AC-BRKFST tab 02/03/22 Scopolamine 1 mg/72 Hr Patch 1 patch TRANSDERM Q72H patch 02/03/22 [TransDerm Scop] Sodium Chloride Tab 1 gm PO DAILY tab 02/03/22 Thiamine [Vitamin B-1] 100 mg PO DAILY #30 tablet 02/03/22 amLODIPine [Norvasc] 5 mg PO DAILY #0 02/03/22 Allergies Allergy/AdvReac Type Severity Reaction Status Date / Time cephalexin monohydrate Allergy Itching. Verified 01/25/22 18:31 [From Keflex] SWELLING Review of Systems ROS Statement: Those systems with pertinent positive or pertinent negative responses have been documented in the HPI. ROS Other: All systems not noted in ROS Statement are negative. Past Medical History Past Medical History: Asthma, Coronary Artery Disease (CAD), Cancer, Chest Pain / Angina, COPD, Diabetes Mellitus, Deep Vein Thrombosis (DVT), GERD/Reflux, Hyperlipidemia, Hypertension, Myocardial Infarction ([place]), Osteoarthritis (OA) Additional Past Medical History / Comment(s): mentally incapacitated per guardian, morbid obesity, Chronic kidney disease stage IV, chronic bronchitis, lobectomy for lung cancer, abdominal wall hernia R side, generalized weakness, gait dysfunction, falls, DJD T12 and L1, urine incontinence at times. The patient lives w/her guardian Marianela Syed who is new to this role so wasn't able to confirm health hx., gets bubble pack of meds set up by Visiting Physician- takes own meds per guardian Last Myocardial Infarction Date:: 01/20/09 History of Any Multi-Drug Resistant Organisms: VRE Date of last positivie culture/infection: 11/13/17 MDRO Source:: VRE URINE Past Surgical History: Section, Heart Catheterization, Heart Catheterization With Stent, Orthopedic Surgery Additional Past Surgical History / Comment(s): Lung lobectomy, ORIF RIGHT ULNA/RADIUS, left rotator cuff repair, cataract removals, heel surgery r/t infection (laterality unknown), colonoscopies/ benign polypectomy, PCI/ stent x2, guardian unable to confirm Past Anesthesia/Blood Transfusion Reactions: No Reported Reaction Date of Last Stent Placement:: 11/2016 Past Psychological History: Anxiety, Bipolar, Depression Smoking Status: Unknown if ever smoked Past Alcohol Use History: None Reported Past Drug Use History: None Reported - Past Family History Brother(s) Family Medical History: Cancer General Exam Limitations: no limitations General appearance: alert, in no apparent distress Head exam: Present: atraumatic, normocephalic, normal inspection Eye exam: Present: normal appearance, EOMI Neck exam: Present: normal inspection, full ROM Respiratory exam: Present: normal lung sounds bilaterally. Absent: respiratory distress, wheezes, rales, rhonchi, stridor Cardiovascular Exam: Present: regular rate, normal rhythm, normal heart sounds. Absent: systolic murmur, diastolic murmur, rubs, gallop, clicks GI/Abdominal exam: Present: soft. Absent: distended, tenderness, guarding, rebound, rigid Neurological exam: Present: alert, oriented X3 Psychiatric exam: Present: normal affect, normal mood Skin exam: Present: warm, dry, intact, normal color. Absent: rash Course Vital Signs 05/31/23 06/01/23 06/01/23 23:01 01:02 02:00 Temperature 98.2 F Pulse Rate 118 H 94 96 Respiratory 20 16 14 Rate Blood Pressure 163/93 179/89 147/83 O2 Sat by Pulse 98 100 99 Oximetry Medical Decision Making - Medical Decision Making Was pt. sent in by a medical professional or institution (JOSE Friend, OFFICE MACHINE MECHANIC, urgent care, hospital, or chcf...) When possible be specific @ -No Did you speak to anyone other than the patient for history (EMS, parent, family, police, friend...)? What history was obtained from this source @ -No Did you review nursing and triage notes (agree or disagree)? Why? @ -I reviewed and agree with nursing and triage notes Were old charts reviewed (outside hosp., previous admission, EMS record, old EKG, old radiological studies, urgent care reports/EKG's, chcf records)? Report findings @ -No old charts were reviewed Differential Diagnosis (chest pain, altered mental status, abdominal pain women, abdominal pain men, vaginal bleeding, weakness, fever, dyspnea, syncope, hea dache, dizziness, GI bleed, back pain, seizure, CVA, palpatations, mental health, musculoskeletal)? @ -MDM Differential Chest Pain: Stable Angina, Unstable Angina, STEMI, NSTEMI Aortic Dissection, Pneumothorax, Musculoskeletal, Esophageal Spasm GERD, Cholecystitis, Pancreatitis, Zoster This is not meant to be an all-inclusive list. EKG interpreted by me (3pts min.). @ -As above X-rays interpreted by me (1pt min.). @ -X-ray shows a small patchy airspace opacities over bilateral lower lung z ones. May represent atelectasis and/or pneumonia CT interpreted by me (1pt min.). @ -None done U/S interpreted by me (1pt. min.). @ -None done What testing was considered but not performed or refused? (CT, X-rays, U/S, labs)? Why? @ -None What meds were considered but not given or refused? Why? @ -None Did you discuss the management of the patient with other professionals (professionals i.e. JOSE Friend, OFFICE MACHINE MECHANIC, lab, RT, psych nurse, high school social studies tutor, receiving associate, teacher, correction officer supervisor, casework manager)? Give summary @ -I spoke with Dr. Jackson who accepted admission Was smoking cessation discussed for >3mins.? @ -No Was critical care preformed (if so, how long)? @ -No Were there social determinants of health that impacted care today? How? (Homelessness, low income, unemployed, alcoholism, drug addiction, transportation, low edu. Level, literacy, decrease access to med. care, care home, rehab)? @ -No Was there de-escalation of care discussed even if they declined (Discuss DNR or withdrawal of care, Hospice)? DNR status @ -No What co-morbidities impacted this encounter? (DM, HTN, Smoking, COPD, CAD, Cancer, CVA, ARF, Chemo, Hep., AIDS, mental health diagnosis, sleep apnea, morbid obesity)? @ -Diabetes, hypertension, CAD, obesity Was patient admitted / discharged? Hospital course, mention meds given and route, prescriptions, significant lab abnormalities, going to OR and other pertinent info. @ -Admitted. 73-year-old female presenting with chief complaint of chest pain and UTI like symptoms. Physical exam is conducted. Urine is positive for UTI. WBC 16.1. Glucose 535, potassium 5.4, normal anion gap. Patient is treated with IV fluids and insulin. Negative troponin. Chest x-ray shows possible atelectasis and/or pneumonia. Given that the patient is not having cough or fever I feel there is decrease likelihood that this is attributed to pneumonia. Patient is treated with levofloxacin for UTI. She'll be admitted for observation due to chest pain and UTI. Follow-up with PCP. Report back to ER with any new or worsening symptoms. Discussed return parameters and answered all questions. Patient conveyed verbal understanding and agreed to the plan. I discussed this case in detail with my attending Dr. Nelson Undiagnosed new problem with uncertain prognosis? @ -No Drug Therapy requiring intensive monitoring for toxicity (Heparin, Nitro, Insulin, Cardizem)? @ -No Were any procedures done? @ -No Diagnosis/symptom? @ -Chest pain Acute, or Chronic, or Acute on Chronic? @ -Acute Uncomplicated (without systemic symptoms) or Complicated (systemic symptoms)? @ -Complicated Side effects of treatment? @ -No Exacerbation, Progression, or Severe Exacerbation? @ -No Poses a threat to life or bodily function? How? (Chest pain, [place], [place], pneumonia, PE, COPD, DKA, ARF, appy, cholecystitis, CVA, Diverticulitis, Homicidal, Suic idal, threat to staff... and all critical care pts) @ -yes Diagnosis/symptom? @UTI Acute, or Chronic, or Acute on Chronic? @Acute Uncomplicated (without systemic symptoms) or Complicated (systemic symptoms)? @Complicated Side effects of treatment? @ none Exacerbation, Progression, or Severe Exacerbation] @ no Poses a threat to life or bodily function? @Yes - Lab Data Result diagrams: 06/01/23 00:16 06/01/23 02:13 Lab Results 06/01/23 06/01/23 06/01/23 Range/Units 00:16 00:16 00:16 WBC 16.1 H (3.8-10.6) k/uL RBC 4.68 (3.80-5.40) m/uL Hgb 14.3 (11.4-16.0) gm/dL Hct 43.9 (34.0-46.0) % MCV 93.7 (80.0-100.0) fL MCH 30.6 (25.0-35.0) pg MCHC 32.6 (31.0-37.0) g/dL RDW 13.8 (11.5-15.5) % Plt Count 258 (150-450) k/uL MPV 9.6 Neutrophils % 86 % Lymphocytes % 7 % Monocytes % 6 % Eosinophils % 0 % Basophils % 0 % Neutrophils # 13.8 H (1.3-7.7) k/uL Lymphocytes # 1.1 (1.0-4.8) k/uL Monocytes # 1.0 (0-1.0) k/uL Eosinophils # 0.1 (0-0.7) k/uL Basophils # 0.0 (0-0.2) k/uL Sodium (137-145) mmol/L Potassium (3.5-5.1) mmol/L Chloride (98-107) mmol/L Carbon Dioxide (22-30) mmol/L Anion Gap mmol/L BUN (7-17) mg/dL Creatinine (0.52-1.04) mg/dL Est GFR (CKD-EPI)AfAm (>60 ml/min/1.73 sqM) Est GFR (CKD-EPI)NonAf (>60 ml/min/1.73 sqM) Glucose (74-99) mg/dL Plasma Lactic Acid Orion 2.2 H* (0.7-2.0) mmol/L Calcium (8.4-10.2) mg/dL Total Bilirubin (0.2-1.3) mg/dL AST (14-36) U/L ALT (4-34) U/L Alkaline Phosphatase (38-126) U/L Troponin I (0.000-0.034) ng/mL Total Protein (6.3-8.2) g/dL Albumin (3.5-5.0) g/dL Amylase (30-110) U/L Lipase (23-300) U/L Urine Color Yellow Urine Appearance Slightly Cloudy H (Clear) Urine pH 5.5 (5.0-8.0) Ur Specific Supply 1.004 (1.001-1.035) Urine Protein 1+ H (Negative) Urine Glucose (UA) 4+ H (Negative) Urine Ketones Negative (Negative) Urine Blood Trace H (Negative) Urine Nitrite Negative (Negative) Urine Bilirubin Negative (Negative) Urine Urobilinogen 0.2 (<2.0) mg/dL Ur Leukocyte Esterase Large H (Negative) Urine RBC 2 (0-5) /hpf Urine WBC 57 H (0-5) /hpf Ur Squamous Epith Cells 1 (0-4) /hpf Amorphous Sediment Rare H (None) /hpf Urine Bacteria Many H (None) /hpf Hyaline Casts 1 (0-2) /lpf 06/01/23 06/01/23 Range/Units 00:16 02:13 WBC (3.8-10.6) k/uL RBC (3.80-5.40) m/uL Hgb (11.4-16.0) gm/dL Hct (34.0-46.0) % MCV (80.0-100.0) fL MCH (25.0-35.0) pg MCHC (31.0-37.0) g/dL RDW (11.5-15.5) % Plt Count (150-450) k/uL MPV Neutrophils % % Lymphocytes % % Monocytes % % Eosinophils % % Basophils % % Neutrophils # (1.3-7.7) k/uL Lymphocytes # (1.0-4.8) k/uL Monocytes # (0-1.0) k/uL Eosinophils # (0-0.7) k/uL Basophils # (0-0.2) k/uL Sodium 124 L (137-145) mmol/L Potassium 5.4 H (3.5-5.1) mmol/L Chloride 94 L (98-107) mmol/L Carbon Dioxide 22 (22-30) mmol/L Anion Gap 8 mmol/L BUN 47 H (7-17) mg/dL Creatinine 1.37 H (0.52-1.04) mg/dL Est GFR (CKD-EPI)AfAm 44 (>60 ml/min/1.73 sqM) Est GFR (CKD-EPI)NonAf 38 (>60 ml/min/1.73 sqM) Glucose 535 H* (74-99) mg/dL Plasma Lactic Acid Orion (0.7-2.0) mmol/L Calcium 8.8 (8.4-10.2) mg/dL Total Bilirubin 0.7 (0.2-1.3) mg/dL AST 21 (14-36) U/L ALT 25 (4-34) U/L Alkaline Phosphatase 141 H (38-126) U/L Troponin I 0.026 (0.000-0.034) ng/mL Total Protein 6.3 (6.3-8.2) g/dL Albumin 3.6 (3.5-5.0) g/dL Amylase 59 (30-110) U/L Lipase 188 (23-300) U/L Urine Color Urine Appearance (Clear) Urine pH (5.0-8.0) Ur Specific Supply (1.001-1.035) Urine Protein (Negative) Urine Glucose (UA) (Negative) Urine Ketones (Negative) Urine Blood (Negative) Urine Nitrite (Negative) Urine Bilirubin (Negative) Urine Urobilinogen (<2.0) mg/dL Ur Leukocyte Esterase (Negative) Urine RBC (0-5) /hpf Urine WBC (0-5) /hpf Ur Squamous Epith Cells (0-4) /hpf Amorphous Sediment (None) /hpf Urine Bacteria (None) /hpf Hyaline Casts (0-2) /lpf Disposition Clinical Impression: UTI (urinary tract infection), Chest pain Disposition: ADMITTED IP TO THIS HOSP Condition: Fair Time of Disposition: 03:15
[2023-06-01 03:22] LABS: Glucose,Whole Blood 499 mg/dL (70-110)
[2023-06-01] MEDS ORDERED: DEXTROSE 50% SYRINGE 50 ML IVP PRN ×4 (03:29→12:18)
[2023-06-01 04:32] LABS: Glucose,Whole Blood 189 mg/dL (70-110)
[2023-06-01] MEDS: MORPHINE SULFATE 4 MG/ML SYRINGE IV PRN (06:08)
[2023-06-01 07:39] LABS: Glucose,Whole Blood 273 mg/dL (70-110)
[2023-06-01] MEDS: INSULIN ASPART (NovoLOG) 100 UNIT/ML VIAL SQ SCH ×4 (08:12→20:55)
[2023-06-01] MEDS: ONDANSETRON 4 MG/2 ML VIAL IVP PRN ×2 (10:30→20:55)
[2023-06-01] MEDS: METOPROLOL TARTRATE 12.5 MG TAB PO SCH ×2 (10:31→20:55)
[2023-06-01] MEDS: amLODIPine 5 MG TAB PO SCH (10:33)
[2023-06-01] MEDS: ASPIRIN 81 MG PO SCH (10:33)
[2023-06-01] MEDS ORDERED: LOSARTAN 25 MG TAB PO SCH (11:00)
[2023-06-01] MEDS ORDERED: NON FORMULARY DRUG (Pantoprazole Sodium [Protonix] 20 MG Tablet) PO SCH (11:00)
[2023-06-01] MEDS: ARIPiprazole 10 MG TAB PO SCH (12:07)
[2023-06-01] MEDS: MULTIVITAMINS, THERA 1 EACH TAB PO SCH (12:07)
[2023-06-01] MEDS: FERROUS SULFATE 325 MG TAB PO SCH (12:07)
[2023-06-01] MEDS: PANTOPRAZOLE 40 MG TABLET PO SCH (12:07)
[2023-06-01] MEDS: allopurinoL 100 MG TAB PO SCH (12:07)
[2023-06-01] MEDS: THIAMINE 100 MG TAB PO SCH (12:07)
[2023-06-01] MEDS: FOLIC ACID 1 MG TAB PO SCH (12:07)
[2023-06-01] MEDS: HYDROcodone/APAP 5-325MG 1 EACH TAB PO PRN ×2 (12:07→19:12)
[2023-06-01] MEDS ORDERED: IOPAMIDOL CONTRAST (ORAL USE) VIAL PO PRN (12:13)
[2023-06-01] MEDS: DULoxetine HCL 60 MG CAPSULE.DR PO SCH ×2 (12:25→20:55)
[2023-06-01] MEDS: OXYBUTYNIN 15 MG TAB.ER.24 PO SCH (12:25)
[2023-06-01] MEDS: NON FORMULARY DRUG (Mirabegron [Myrbetriq] 25 MG Tablet) PO SCH (12:29)
[2023-06-01] MEDS ORDERED: LEVOFLOXACIN 750MG-D5W PMX 750 MG in DEXTROSE/WATER 1 150ML.BAG IVPB SCH (12:30)
--- NOTE | 2023-06-01 12:38 | P.CRDCN ---
History of Present Illness History of present illness: HISTORY OF PRESENT ILLNESS: This is a 73-year-old female with a past medical history significant for hypertension, hyperlipidemia, and coronary artery disease with previous stenting. Patient does not follow with a immigration patrol inspector. We have been asked to see the patient in consultation for chest pain with abnormal troponins. Patient examined at the bedside in the emergency room. Patient presented to the hospital with a chief complaint of weakness. She states that she has been weak at home for the past 3-4 days and is having a hard time getting around at home. She also reports significant burning with urination for the past 4 days. Patient was found to have leukocytosis with a white count of 16. She is receiving antibiotics for urinary tract infection. The patient reports also having some chest pain at home. She reports it feels like a thumping sensation and also a pressure type sensation. She also reports feeling "gassy" and has been burping more than usual for the past couple days. * EKG reveals sinus mechanism with no signs of acute ischemia * Chest xray suspect small patchy airspace opacities over bilateral lower lung zones, may represent atelectasis and/or pneumonia * Current home cardiac medications include aspirin 81 mg daily, Lipitor 40 mg at night, amlodipine 5 mg daily, Lasix 20 mg twice a day, losartan 25 mg daily, metoprolol tartrate 37.5 mg twice a day * Most recent echocardiogram obtained in 2017 reveals ejection fraction 55-60%, mild mitral education, and mild tricuspid regurgitation * Cardiac catheterization history: November 2016 revealing patent stent to the LAD. 40% plaque beyond the stented segment unchanged from before. Diffuse disease in the distal branches of the right coronary artery. Circumflex is a 40% ostial lesion which is unchanged. Medical management was recommended. REVIEW OF SYSTEMS: At the time of my exam: CONSTITUTIONAL: Denies fever or chills. HEENT: Denies blurred vision, vision changes, or eye pain. Denies hemoptysis CARDIOVASCULAR: Denies chest pain. Denies orthopnea. Denies PND. Denies palpitations RESPIRATORY: Denies shortness of breath. GASTROINTESTINAL: Denies abdominal pain. Denies nausea or vomiting. HEMATOLOGIC: Denies bleeding disorders. GENITOURINARY: Denies any blood in urine. SKIN: Denies pruitis. Denies rash. PHYSICAL EXAM: VITAL SIGNS: Reviewed. GENERAL: Well-developed in no acute distress. HEENT: Head is normocephalic. Pupils are equal, round. Sclerae anicteric. Mucous membranes of the mouth are moist. Neck supple. No JVD or thyromegaly LUNGS: Respirations even and unlabored. Lungs essentially clear to auscultation bilaterally. HEART: Regular rate and rhythm. S1 and S2 heard. ABDOMEN: Soft. Nondistended. Nontender. EXTREMITIES: Normal range of motion. No clubbing or cyanosis. Peripheral pulses intact. No lower extremity edema NEUROLOGIC: Awake and alert. Oriented x 3. ASSESSMENT: Generalized weakness Urinary tract infection Leukocytosis Abnormal troponins, flat, not suggestive of acute coronary syndrome, likely secondary to infectious process and acute kidney injury Hyponatremia Hyperkalemia Acute kidney injury Coronary artery disease with previous stenting of LAD, 2016 Diabetes, uncontrolled on admission Hypertension Hyperlipidemia PLAN: An acute coronary event has been ruled out Resume home cardiac medications Obtain 2-D echo to assess cardiac structure and function Treatment of infectious process per primary medicine Hold Vi. Monitor kidney function. Further recommendations pending patient's course Nurse practitioner note has been reviewed by physician. Signing provider agrees with the documented findings, assessment, and plan of care. Past Medical History Past Medical History: Asthma, Coronary Artery Disease (CAD), Cancer, Chest Pain / Angina, COPD, Diabetes Mellitus, Deep Vein Thrombosis (DVT), GERD/Reflux, Hyperlipidemia, Hypertension, Myocardial Infarction ([place]), Osteoarthritis (OA) Additional Past Medical History / Comment(s): mentally incapacitated per guardian, morbid obesity, Chronic kidney disease stage IV, chronic bronchitis, lobectomy for lung cancer, abdominal wall hernia R side, generalized weakness, gait dysfunction, falls, DJD T12 and L1, urine incontinence at times. The patient lives w/her guardian Marianela Syed who is new to this role so wasn't able to confirm health hx., gets bubble pack of meds set up by Visiting Physician- takes own meds per guardian Last Myocardial Infarction Date:: 01/20/09 History of Any Multi-Drug Resistant Organisms: VRE Date of last positivie culture/infection: 11/13/17 MDRO Source:: VRE URINE Past Surgical History: Section, Heart Catheterization, Heart Catheterization With Stent, Orthopedic Surgery Additional Past Surgical History / Comment(s): Lung lobectomy, ORIF RIGHT ULNA/RADIUS, left rotator cuff repair, cataract removals, heel surgery r/t infection (laterality unknown), colonoscopies/ benign polypectomy, PCI/ stent x2, guardian unable to confirm Past Anesthesia/Blood Transfusion Reactions: No Reported Reaction Date of Last Stent Placement:: 11/2016 Past Psychological History: Anxiety, Bipolar, Depression Smoking Status: Unknown if ever smoked Past Alcohol Use History: None Reported Past Drug Use History: None Reported - Past Family History Brother(s) Family Medical History: Cancer Medications and Allergies Home Medications Medication Instructions Recorded Confirmed Type Aspirin 81 mg PO DAILY #30 chew 11/16/16 06/01/23 Rx Atorvastatin [Lipitor] 40 mg PO HS 11/13/17 06/01/23 History ARIPiprazole [Abilify] 10 mg PO DAILY 07/22/21 06/01/23 History DULoxetine HCL [Cymbalta] 60 mg PO BID 07/22/21 06/01/23 History Loratadine [Claritin] 10 mg PO DAILY 07/22/21 06/01/23 History Losartan [Cozaar] 25 mg PO DAILY 07/22/21 06/01/23 History Mirabegron [Myrbetriq] 25 mg PO DAILY 07/22/21 06/01/23 History traZODone HCL 50 mg PO HS 07/22/21 06/01/23 History allopurinoL [Zyloprim] 100 mg PO DAILY 01/26/22 06/01/23 History Folic Acid 1 mg PO DAILY #30 tablet 02/03/22 06/01/23 Rx Sodium Chloride Tab 1 gm PO DAILY tab 02/03/22 06/01/23 Rx Thiamine [Vitamin B-1] 100 mg PO DAILY #30 tablet 02/03/22 06/01/23 Rx Doxycycline Monohydrate 100 mg PO BID 06/01/23 06/01/23 History Ergocalciferol [Vitamin D2 (1250 1,250 mcg PO Q7D 06/01/23 06/01/23 History Mcg = 21307 Iu)] Ferrous Sulfate [Feosol] 325 mg PO DAILY 06/01/23 06/01/23 History Furosemide [Lasix] 20 mg PO BID 06/01/23 06/01/23 History HYDROcodone/APAP 10-325MG [[place] 1 tab PO Q6HR PRN 06/01/23 06/01/23 History 10-325] Loperamide [Imodium] 2 - 4 mg PO QID PRN 06/01/23 06/01/23 History Metoprolol Tartrate [Lopressor] 37.5 mg PO BID 06/01/23 06/01/23 History Multivit-Min/FA/Lycopen/Lutein 1 tab PO DAILY 06/01/23 06/01/23 History [Centrum Silver Tablet] Omeprazole [PriLOSEC] 20 mg PO DAILY 06/01/23 06/01/23 History Oxybutynin ER [Ditropan XL] 15 mg PO DAILY 06/01/23 06/01/23 History Pantoprazole Sodium [Protonix] 20 mg PO DAILY 06/01/23 06/01/23 History Potassium Chloride [Klor-Con M20] 20 meq PO DAILY 06/01/23 06/01/23 History amLODIPine [Norvasc] 5 mg PO DAILY 06/01/23 06/01/23 History Allergies Allergy/AdvReac Type Severity Reaction Status Date / Time cephalexin monohydrate Allergy Itching. Verified 06/01/23 09:17 [From Keflex] SWELLING Physical Exam Vitals: Vital Signs Temp Pulse Resp BP Pulse Ox 06/01/23 06:20 95 16 108/98 98 06/01/23 04:00 103 H 152/87 97 06/01/23 03:34 95 14 152/85 97 06/01/23 02:00 96 14 147/83 99 06/01/23 01:02 94 16 179/89 100 05/31/23 23:01 98.2 F 118 H 20 163/93 98 Intake and Output 05/31/23 06/01/23 06/01/23 22:59 06:59 14:59 Other: Weight 103.873 kg Results 06/01/23 00:16 06/01/23 02:13 Cardiac Enzymes 06/01/23 06/01/23 06/01/23 Range/Units 00:16 02:13 06:00 AST 21 (14-36) U/L Troponin I 0.026 0.037 H* (0.000-0.034) ng/mL Coagulation 06/01/23 Range/Units 00:16 PT 9.8 L (10.0-12.5) sec APTT 19.0 L (22.0-30.0) sec CBC 06/01/23 Range/Units 00:16 WBC 16.1 H (3.8-10.6) k/uL RBC 4.68 (3.80-5.40) m/uL Hgb 14.3 (11.4-16.0) gm/dL Hct 43.9 (34.0-46.0) % Plt Count 258 (150-450) k/uL Comprehensive Metabolic Panel 06/01/23 Range/Units 02:13 Sodium 124 L (137-145) mmol/L Potassium 5.4 H (3.5-5.1) mmol/L Chloride 94 L (98-107) mmol/L Carbon Dioxide 22 (22-30) mmol/L BUN 47 H (7-17) mg/dL Creatinine 1.37 H (0.52-1.04) mg/dL Glucose 535 H* (74-99) mg/dL Calcium 8.8 (8.4-10.2) mg/dL AST 21 (14-36) U/L ALT 25 (4-34) U/L Alkaline Phosphatase 141 H (38-126) U/L Total Protein 6.3 (6.3-8.2) g/dL Albumin 3.6 (3.5-5.0) g/dL Current Medications Generic Name Dose Route Start Last Admin Trade Name Freq PRN Reason Stop Dose Admin Acetaminophen 650 mg 06/01/23 03:12 Acetaminophen Tab 325 Mg Tab PO Q6HR PRN Mild Pain or Fever > 100.5 Hydrocodone Bitart/Acetaminophen 1 each 06/01/23 03:12 Hydrocodone/Apap 5-325mg 1 Each Tab PO Q4HR PRN Moderate Pain (Scale 4 to 6) Dextrose/Water 25 ml 06/01/23 03:29 Dextrose 50% Syringe 50 Ml IVP PER PROTOCOL PRN Hypoglycemia Protocol Dextrose/Water 50 ml 06/01/23 03:29 Dextrose 50% Syringe 50 Ml IVP PER PROTOCOL PRN Hypoglycemia Protocol Insulin Aspart 0 unit 06/01/23 07:30 Insulin Aspart (Novolog) 100 Unit/Ml Vial SQ ACHS VIOLETTA Protocol Morphine Sulfate 4 mg 06/01/23 03:12 06/01/23 06:08 Morphine Sulfate 4 Mg/Ml Syringe IV 4 mg Q4HR PRN Administration Severe Pain (Scale 7 to 10) Naloxone HCl 0.2 mg 06/01/23 03:12 Naloxone 0.4 Mg/Ml 1 Ml Vial IV Q2M PRN Opioid Reversal Ondansetron HCl 4 mg 06/01/23 03:12 Ondansetron 4 Mg/2 Ml Vial IVP Q8HR PRN Nausea And Vomiting Intake and Output 05/31/23 06/01/23 06/01/23 22:59 06:59 14:59 Other: Weight 103.873 kg 06/01/23 00:16 06/01/23 02:13
--- NOTE | 2023-06-01 12:52 | P.HPIM ---
History of Present Illness H&P Date: 06/01/23 Chief Complaint: Nausea vomiting This is a 73-year-old patient, follows with visiting physicians Dr. Waller. At her baseline patient does use a cane sometimes a walker. Presents with 5 days of nausea vomiting. Unable to keep anything down. Right lower quadrant pain. Normally has a bowel movement once a week. No BM for last 2 days. Chills. Patient is hard of hearing. Tired rundown. Also having some intermittent chest pain. Patient is incontinent of urine. Review of systems: GEN.: Tired EYES: [None] HEENT: [Decreased hearing] NECK: [None] RESPIRATORY: [None] CARDIOVASCULAR: Chest pain] GASTROINTESTINAL: [As above] GENITOURINARY: [Incontinent] MUSCULOSKELETAL: [Chronic joint pains] LYMPHATICS: [None] HEMATOLOGICAL: [None] PSYCHIATRY: [None] NEUROLOGICAL: [Does use a cane walker] Past medical history to include: Depression, hyperlipidemia, urinary stress incontinence, diabetes mellitus type 2, CAD, COPD, DVT, GERD, hyperlipidemia, mentally incapacitated, chronic kidney disease stage IV, right lobectomy for lung cancer, abdominal wall hernia, Social history: Legal guardian Marianela Syed. Past history of alcohol dependence. Has 2 roommates. Has a caregiver. Family history: Cancer Physical examination: VITAL SIGNS: 98.2, 118, 20, 163/93, 98% room air GENERAL: BMI 49.6 Sitting up in bed awake not in distress EYES: Pupils equal. Conjunctiva normal. HEENT: External appearance of nose and ears normal, oral cavity dry mucous membranes. Heart appearing NECK: JVD not raised; masses not palpable. HEART: First and second heart sounds are normal; no edema. LUNGS: Respiratory rate normal; clear to auscultation. ABDOMEN: Soft, non-abdominal tenderness, no guarding rigidity abdominal wall hernia nontender, liver spleen not palpable, no masses palpable. PSYCH: Answering simple questions appropriately MUSCULOSKELETAL:No Clubbing/cyanosis;muscles-grossly intact. OA NEUROLOGICAL: Cranial nerves grossly intact; no facial asymmetry, moving all 4 limbs INVESTIGATIONS, reviewed in the clinical context: June 01: White count 16.1 hemoglobin 14.3 platelets 258 sodium 124 potassium 5.4 BUN 47 creatinine 1.37 blood glucose 535 lactic acid 2.2 Troponin I 0.026, 0.037, 0.044 EKG tracing personally reviewed by -normal sinus rhythm. Chest x-ray film personally reviewed by me-possible infiltrates Previous labs: Creatinine 0.851 01/2022 Assessment and plan: -Acute abdominal pain. 34 days. Along with nausea vomiting. Some chills. Elevated white count. Unable to keep anything down. Tenderness in the right lower quadrant. Empirically started IV ceftriaxone. Clear liquid diet. Consult surgery. Computed tomography scan of the abdomen with oral contrast. [IV contrast because of worsening kidney function] -Acute kidney injury possibly combination of prerenal and ATN. IV fluids. Follow renal function -Metabolic acidosis from renal failure: Improved IV bicarbonate drip discontinue -Morbid obesity BMI 49.6 Weight loss measures -Chronice constipation has a bowel movement normally once a day. -Diabetes mellitus type 2 on insulin, uncontrolled with hyperglycemia Labs the nurse update patient's home medication list is a sling. Sliding scale. Serum acetone -Depression and anxiety Abilify 10 mg a day. Cymbalta 60 mg twice a day. -Essential hypertension Norvasc Lopressor 25 mg twice a day Hold Cozaar because of renal function -Hyperuricemia Allopurinol 100 mg a day -GERD Protonix 20 mg daily -Chronic urinary stress incontinence Oxybutynin 15 mg a day, Myrbetriq 25 mg a day -Chronic arthritis with pain [place] 10 1 tablet every 6 when necessary -Chronic hard of hearing -Chronic medical debility. At her baseline uses a walker -Legal guardian: Marianela Yahaira Discussed with patient. Past Medical History Past Medical History: Asthma, Coronary Artery Disease (CAD), Cancer, Chest Pain / Angina, COPD, Diabetes Mellitus, Deep Vein Thrombosis (DVT), GERD/Reflux, Hyperlipidemia, Hypertension, Myocardial Infarction ([place]), Osteoarthritis (OA) Additional Past Medical History / Comment(s): mentally incapacitated per guardian, morbid obesity, Chronic kidney disease stage IV, chronic bronchitis, lobectomy for lung cancer, abdominal wall hernia R side, generalized weakness, gait dysfunction, falls, DJD T12 and L1, urine incontinence at times. The patient lives w/her guardian Marianela Syed who is new to this role so wasn't able to confirm health hx., gets bubble pack of meds set up by Visiting Physician- takes own meds per guardian Last Myocardial Infarction Date:: 01/20/09 History of Any Multi-Drug Resistant Organisms: VRE Date of last positivie culture/infection: 11/13/17 MDRO Source:: VRE URINE Past Surgical History: Section, Heart Catheterization, Heart Catheterization With Stent, Orthopedic Surgery Additional Past Surgical History / Comment(s): Lung lobectomy, ORIF RIGHT ULNA/RADIUS, left rotator cuff repair, cataract removals, heel surgery r/t infection (laterality unknown), colonoscopies/ benign polypectomy, PCI/ stent x2, guardian unable to confirm Past Anesthesia/Blood Transfusion Reactions: No Reported Reaction Date of Last Stent Placement:: 11/2016 Past Psychological History: Anxiety, Bipolar, Depression Smoking Status: Unknown if ever smoked Past Alcohol Use History: None Reported Past Drug Use History: None Reported - Past Family History Brother(s) Family Medical History: Cancer Medications and Allergies Home Medications Medication Instructions Recorded Confirmed Type Aspirin 81 mg PO DAILY #30 chew 11/16/16 06/01/23 Rx Atorvastatin [Lipitor] 40 mg PO HS 11/13/17 06/01/23 History ARIPiprazole [Abilify] 10 mg PO DAILY 07/22/21 06/01/23 History DULoxetine HCL [Cymbalta] 60 mg PO BID 07/22/21 06/01/23 History Loratadine [Claritin] 10 mg PO DAILY 07/22/21 06/01/23 History Losartan [Cozaar] 25 mg PO DAILY 07/22/21 06/01/23 History Mirabegron [Myrbetriq] 25 mg PO DAILY 07/22/21 06/01/23 History traZODone HCL 50 mg PO HS 07/22/21 06/01/23 History allopurinoL [Zyloprim] 100 mg PO DAILY 01/26/22 06/01/23 History Folic Acid 1 mg PO DAILY #30 tablet 02/03/22 06/01/23 Rx Sodium Chloride Tab 1 gm PO DAILY tab 02/03/22 06/01/23 Rx Thiamine [Vitamin B-1] 100 mg PO DAILY #30 tablet 02/03/22 06/01/23 Rx Doxycycline Monohydrate 100 mg PO BID 06/01/23 06/01/23 History Ergocalciferol [Vitamin D2 (1250 1,250 mcg PO Q7D 06/01/23 06/01/23 History Mcg = 21729 Iu)] Ferrous Sulfate [Feosol] 325 mg PO DAILY 06/01/23 06/01/23 History Furosemide [Lasix] 20 mg PO BID 06/01/23 06/01/23 History HYDROcodone/APAP 10-325MG [[place] 1 tab PO Q6HR PRN 06/01/23 06/01/23 History 10-325] Loperamide [Imodium] 2 - 4 mg PO QID PRN 06/01/23 06/01/23 History Metoprolol Tartrate [Lopressor] 37.5 mg PO BID 06/01/23 06/01/23 History Multivit-Min/FA/Lycopen/Lutein 1 tab PO DAILY 06/01/23 06/01/23 History [Centrum Silver Tablet] Omeprazole [PriLOSEC] 20 mg PO DAILY 06/01/23 06/01/23 History Oxybutynin ER [Ditropan XL] 15 mg PO DAILY 06/01/23 06/01/23 History Pantoprazole Sodium [Protonix] 20 mg PO DAILY 06/01/23 06/01/23 History Potassium Chloride [Klor-Con M20] 20 meq PO DAILY 06/01/23 06/01/23 History amLODIPine [Norvasc] 5 mg PO DAILY 06/01/23 06/01/23 History Allergies Allergy/AdvReac Type Severity Reaction Status Date / Time cephalexin monohydrate Allergy Itching. Verified 06/01/23 09:17 [From Keflex] SWELLING Physical Exam Vitals: Vital Signs Temp Pulse Resp BP Pulse Ox 06/01/23 10:00 99 18 157/76 97 06/01/23 08:00 104 H 18 139/79 99 06/01/23 06:20 95 16 108/98 98 06/01/23 04:00 103 H 152/87 97 06/01/23 03:34 95 14 152/85 97 06/01/23 02:00 96 14 147/83 99 06/01/23 01:02 94 16 179/89 100 05/31/23 23:01 98.2 F 118 H 20 163/93 98 Intake and Output 05/31/23 06/01/23 06/01/23 22:59 06:59 14:59 Other: Weight 103.873 kg Results CBC & Chem 7: 06/01/23 00:16 06/01/23 02:13 Labs: Abnormal Lab Results - Last 24 Hours (Table) 06/01/23 06/01/23 06/01/23 Range/Units 00:16 00:16 00:16 WBC 16.1 H (3.8-10.6) k/uL Neutrophils # 13.8 H (1.3-7.7) k/uL PT 9.8 L (10.0-12.5) sec APTT 19.0 L (22.0-30.0) sec Sodium (137-145) mmol/L Potassium (3.5-5.1) mmol/L Chloride (98-107) mmol/L BUN (7-17) mg/dL Creatinine (0.52-1.04) mg/dL Glucose (74-99) mg/dL POC Glucose (mg/dL) (70-110) mg/dL Plasma Lactic Acid [place] (0.7-2.0) mmol/L Alkaline Phosphatase (38-126) U/L Troponin I (0.000-0.034) ng/mL Urine Appearance Slightly Cloudy H (Clear) Urine Protein 1+ H (Negative) Urine Glucose (UA) 4+ H (Negative) Urine Blood Trace H (Negative) Ur Leukocyte Esterase Large H (Negative) Urine WBC 57 H (0-5) /hpf Amorphous Sediment Rare H (None) /hpf Urine Bacteria Many H (None) /hpf 06/01/23 06/01/23 06/01/23 Range/Units 00:16 02:13 03:19 WBC (3.8-10.6) k/uL Neutrophils # (1.3-7.7) k/uL PT (10.0-12.5) sec APTT (22.0-30.0) sec Sodium 124 L (137-145) mmol/L Potassium 5.4 H (3.5-5.1) mmol/L Chloride 94 L (98-107) mmol/L BUN 47 H (7-17) mg/dL Creatinine 1.37 H (0.52-1.04) mg/dL Glucose 535 H* (74-99) mg/dL POC Glucose (mg/dL) 499 H (70-110) mg/dL Plasma Lactic Acid [place] 2.2 H* (0.7-2.0) mmol/L Alkaline Phosphatase 141 H (38-126) U/L Troponin I (0.000-0.034) ng/mL Urine Appearance (Clear) Urine Protein (Negative) Urine Glucose (UA) (Negative) Urine Blood (Negative) Ur Leukocyte Esterase (Negative) Urine WBC (0-5) /hpf Amorphous Sediment (None) /hpf Urine Bacteria (None) /hpf 06/01/23 06/01/23 06/01/23 Range/Units 04:31 06:00 07:38 WBC (3.8-10.6) k/uL Neutrophils # (1.3-7.7) k/uL PT (10.0-12.5) sec APTT (22.0-30.0) sec Sodium (137-145) mmol/L Potassium (3.5-5.1) mmol/L Chloride (98-107) mmol/L BUN (7-17) mg/dL Creatinine (0.52-1.04) mg/dL Glucose (74-99) mg/dL POC Glucose (mg/dL) 189 H 273 H (70-110) mg/dL Plasma Lactic Acid [place] (0.7-2.0) mmol/L Alkaline Phosphatase (38-126) U/L Troponin I 0.037 H* (0.000-0.034) ng/mL Urine Appearance (Clear) Urine Protein (Negative) Urine Glucose (UA) (Negative) Urine Blood (Negative) Ur Leukocyte Esterase (Negative) Urine WBC (0-5) /hpf Amorphous Sediment (None) /hpf Urine Bacteria (None) /hpf 06/01/23 Range/Units 07:59 WBC (3.8-10.6) k/uL Neutrophils # (1.3-7.7) k/uL PT (10.0-12.5) sec APTT (22.0-30.0) sec Sodium (137-145) mmol/L Potassium (3.5-5.1) mmol/L Chloride (98-107) mmol/L BUN (7-17) mg/dL Creatinine (0.52-1.04) mg/dL Glucose (74-99) mg/dL POC Glucose (mg/dL) (70-110) mg/dL Plasma Lactic Acid [place] (0.7-2.0) mmol/L Alkaline Phosphatase (38-126) U/L Troponin I 0.044 H* (0.000-0.034) ng/mL Urine Appearance (Clear) Urine Protein (Negative) Urine Glucose (UA) (Negative) Urine Blood (Negative) Ur Leukocyte Esterase (Negative) Urine WBC (0-5) /hpf Amorphous Sediment (None) /hpf Urine Bacteria (None) /hpf
[2023-06-01 12:59] LABS: Glucose,Whole Blood 422 mg/dL (70-110)
[2023-06-01] MEDS: SODIUM CHLORIDE 0.45% 1,000 ML IV SCH ×2 (13:10→19:54)
--- NOTE | 2023-06-01 14:47 | CT ---
EXAMINATION TYPE: CT abdomen pelvis wo con CT DLP: 1058.4 mGycm, Automated exposure control for dose reduction was used. DATE OF EXAM: 06/01/2023 2:30 PM COMPARISON: 01/26/2022 CLINICAL INDICATION:Female, 73 years old with history of RLQ pain; Abdominal pain TECHNIQUE: Axial CT of the ;CT abdomen pelvis wo con;Sagittal and coronal reformats were created on a separate workstation. Contrast used: mL of , (none if empty) Oral contrast used: with Oral Contrast (none if empty) FINDINGS: LOWER CHEST: Moderate coronary artery calcifications. Lipomatous hypertrophy of interatrial septum. D istal esophageal wall thickening up to 12 mm. ABDOMEN LIVER: Unremarkable GALLBLADDER AND BILE DUCTS: Gallstone present. PANCREAS: Lipomatous atrophy changes of the pancreas. SPLEEN: Calcified granuloma. ADRENAL GLANDS: Unremarkable. KIDNEYS AND URETERS: No evidence of hydronephrosis or renal calculus. The ureters are unremarkable. PELVIS BLADDER: Incompletely distended but grossly unremarkable. REPRODUCTIVE: Unremarkable. ABDOMEN & PELVIS STOMACH AND BOWEL: No evidence of bowel obstruction. Small hiatal hernia. Scattered colonic diverticu la. The appendix is not definitively visualized. The cecum is flipped inward and is near midline. PERITONEUM/RETROPERITONEUM: No evidence of pneumoperitoneum or free fluid. VASCULATURE: Mild atherosclerotic calcifications are present throughout the abdominal aorta and its b ranches. No evidence of aortic aneurysm. MUSCULOSKELETAL: No acute osseous abnormalities. Mild disc degeneration changes are present throughou t the thoracolumbar spine. LYMPH NODES: No gross evidence for lymphadenopathy. SOFT TISSUE/ABDOMINAL WALL: Unremarkable IMPRESSION: 1. No evidence for acute process. The appendix is not definitively visualized. The cecum has a more medialized position. No evidence for obstructive uropathy. 2. Distal esophageal wall thickening up to 12 mm correlate for esophagitis. This is slightly worse f rom prior study. Consider endoscopy as clinically warranted. 3. Cholelithiasis. 4. Colonic diverticulosis.
[2023-06-01 17:34] LABS: Glucose,Whole Blood 144 mg/dL (70-110)
[2023-06-01 20:49] LABS: Glucose,Whole Blood 215 mg/dL (70-110)
--- NOTE | 2023-06-01 20:50 | CA ---
Transthoracic Echo Report Name: Colleen Plata Age: 73 Gender: F : 1950 Exam Date: 06/01/2023 15:34 Exam Location: [facility] Ht (in): 58 Wt (lb): 227 Ordering Physician: Sharita Chavez Attending/Referring Phys: [id number], Kathy Elementary Science Teacher Carola Altamirano [facility] Procedure CPT: Indications: LV function, CP Cardiac Hx: Technical Quality: Technically difficult study Contrast 1: Lumason Total Dose (mL): 5 Contrast 2: Total Dose (mL): MEASUREMENTS (Male / Female) Normal Values 2D ECHO LV Diastolic Diameter PLAX 4.0 cm 4.2 - 5.9 / 3.9 - 5.3 cm LV Systolic Diameter PLAX 2.6 cm IVS Diastolic Thickness 1.0 cm 0.6 - 1.0 / 0.6 - 0.9 cm LVPW Diastolic Thickness 1.0 cm 0.6 - 1.0 / 0.6 - 0.9 cm LV Relative Wall Thickness 0.5 LVOT Diameter 2.0 cm Ascending Aorta Diameter 3.1 cm M-MODE Aortic Root Diameter MM 2.8 cm LA Systolic Diameter MM 3.9 cm LA Ao Ratio MM 1.4 AV Cusp Separation MM 1.8 cm DOPPLER AV Peak Velocity 80.8 cm/s AV Peak Gradient 2.6 mmHg AV Mean Velocity 60.9 cm/s AV Mean Gradient 1.6 mmHg AV Velocity Time Integral 16.3 cm LVOT Peak Velocity 70.8 cm/s LVOT Peak Gradient 2.0 mmHg LVOT Velocity Time Integral 13.6 cm LVOT Stroke Volume 42.1 cm??? LVOT Stroke Volume Index 21.9 ml/m??? LVOT Cardiac Index 1607.4 cm???/min???m??? AV Area Cont Eq vti 2.6 cm??? AV Area Cont Eq pk 2.7 cm??? Mitral E Point Velocity 37.0 cm/s Mitral A Point Velocity 54.3 cm/s Mitral E to A Ratio 0.7 MV Deceleration Time 242.2 ms LV E' Lateral Velocity 4.1 cm/s Mitral E to LV E' Lateral Ratio 9.0 LV E' Septal Velocity 2.6 cm/s Mitral E to LV E' Septal Ratio 14.1 TR Peak Velocity 218.4 cm/s TR Peak Gradient 19.1 mmHg Right Atrial Pressure 3.0 mmHg Pulmonary Artery Systolic Pressu 22.1 mmHg Right Ventricular Systolic Press 22.1 mmHg FINDINGS Left Ventricle Moderate increased left ventricular wall thickness. Left ventricular cavity size normal. Normal left ventricular systolic function with no obvious regional wall motion abnormalities. Left ventricular ejection fraction is estimated at 55-60%. Right Ventricle Mild right ventricular dilatation. Right Atrium Right atrium not well visualized. Left Atrium Normal left atrial size. Mitral Valve Mitral valve not well visualized. No mitral regurgitation. Aortic Valve Aortic valve not well visualized. Trileaflet aortic valve. No aortic valve stenosis or regurgitation. Tricuspid Valve Tricuspid valve not well visualized. Trace tricuspid regurgitation. Pulmonic Valve Pulmonic valve not well visualized. Pericardium No pericardial effusion. Echo free space anterior to the right ventricle likely represents a fat pad. Aorta Normal size aortic root and proximal ascending aorta. CONCLUSIONS Technically difficult study. Left ventricular ejection fraction is estimated at 55-60%. Moderate concentric LVH No obvious regional wall motion abnormalities. Epicardial fat No significant valvular disease appreciated No prior echo to compare with in [facility] database Previewed by: Dr Salvatore Mane (Electronically Signed) Final Date: 01 June 2023 20:49
[2023-06-01] MEDS: ATORVASTATIN 40 MG TAB PO SCH (20:55)
[2023-06-01] MEDS: traZODone HCL 50 MG TAB PO SCH (20:55)
[2023-06-02] MEDS: HYDROcodone/APAP 5-325MG 1 EACH TAB PO PRN ×4 (01:19→23:54)
[2023-06-02] MEDS: ONDANSETRON 4 MG/2 ML VIAL IVP PRN (05:12)
[2023-06-02] MEDS: SODIUM CHLORIDE 0.45% 1,000 ML IV SCH ×2 (05:24→16:15)
[2023-06-02 06:35] LABS: Glucose,Whole Blood 378 mg/dL (70-110)
[2023-06-02] MEDS: INSULIN ASPART (NovoLOG) 100 UNIT/ML VIAL SQ SCH ×4 (06:53→23:47)
[2023-06-02] MEDS: PANTOPRAZOLE 40 MG TABLET PO SCH (06:54)
[2023-06-02 08:13] LABS: Basophils % (A) 0 %; Eosinophils # (A) 0.2 k/uL (0-0.7); Eosinophils % (A) 2 %; HCT 40.2 % (34.0-46.0); HGB 13.2 gm/dL (11.4-16.0); Lymphocytes # (A) 1.2 k/uL (1.0-4.8); Lymphocytes % (A) 10 %; MCH 31.1 pg (25.0-35.0); MCHC 32.9 g/dL (31.0-37.0); MCV 94.7 fL (80.0-100.0); Mean Platelet Volume 8.7; Monocytes # (A) 0.7 k/uL (0-1.0); Monocytes % (A) 5 %; Neutrophils # (A) 10.2 k/uL (1.3-7.7); Neutrophils % (A) 82 %; Platelet Count 251 k/uL (150-450); RBC 4.25 m/uL (3.80-5.40); RDW 13.9 % (11.5-15.5); WBC 12.5 k/uL (3.8-10.6)
[2023-06-02 08:32] LABS: ALT 22 U/L (4-34); AST 23 U/L (14-36); African American GFR (CKD) 27 (>60 ml/min/1.73 sqM); Albumin 3.5 g/dL (3.5-5.0); Albumin/Globulin Ratio 1.3; Alkaline Phosphatase 131 U/L (38-126); Anion Gap 11 mmol/L; Blood Urea Nitrogen 61 mg/dL (7-17); Calcium 8.6 mg/dL (8.4-10.2); Carbon Dioxide 19 mmol/L (22-30); Chloride 90 mmol/L (98-107); Globulin 2.6 g/dL; Glucose 387 mg/dL (74-99); Non-African American GFR(CKD) 23 (>60 ml/min/1.73 sqM); Potassium 5.3 mmol/L (3.5-5.1); Sodium 120 mmol/L (137-145); Total Bilirubin 0.5 mg/dL (0.2-1.3); Total Protein 6.1 g/dL (6.3-8.2)
[2023-06-02] MEDS: allopurinoL 100 MG TAB PO SCH (09:08)
[2023-06-02] MEDS: DULoxetine HCL 60 MG CAPSULE.DR PO SCH ×2 (09:09→23:45)
[2023-06-02] MEDS: ARIPiprazole 10 MG TAB PO SCH (09:09)
[2023-06-02] MEDS: FERROUS SULFATE 325 MG TAB PO SCH (09:09)
[2023-06-02] MEDS: FOLIC ACID 1 MG TAB PO SCH (09:09)
[2023-06-02] MEDS: amLODIPine 5 MG TAB PO SCH (09:09)
[2023-06-02] MEDS: ASPIRIN 81 MG PO SCH (09:09)
[2023-06-02] MEDS: MULTIVITAMINS, THERA 1 EACH TAB PO SCH (09:10)
[2023-06-02] MEDS: METOPROLOL TARTRATE 12.5 MG TAB PO SCH ×2 (09:10→23:46)
[2023-06-02] MEDS: OXYBUTYNIN 15 MG TAB.ER.24 PO SCH (09:10)
[2023-06-02] MEDS: THIAMINE 100 MG TAB PO SCH (09:11)
[2023-06-02] MEDS: NON FORMULARY DRUG (Mirabegron [Myrbetriq] 25 MG Tablet) PO SCH (09:12)
--- NOTE | 2023-06-02 10:27 | P.PN ---
Subjective HISTORY OF PRESENT ILLNESS: This is a 73-year-old female with a past medical history significant for hypertension, hyperlipidemia, and coronary artery disease with previous stenting. Patient does not follow with a caponizer. We have been asked to see the patient in consultation for chest pain with abnormal troponins. Patient examined at the bedside in the emergency room. Patient presented to the hospital with a chief complaint of weakness. She states that she has been weak at home for the past 3-4 days and is having a hard time getting around at home. She also reports significant burning with urination for the past 4 days. Patient was found to have leukocytosis with a white count of 16. She is receiving antibiotics for urinary tract infection. The patient reports also having some chest pain at home. She reports it feels like a thumping sensation and also a pressure type sensation. She also reports feeling "gassy" and has been burping more than usual for the past couple days. * EKG reveals sinus mechanism with no signs of acute ischemia * Chest xray suspect small patchy airspace opacities over bilateral lower lung zones, may represent atelectasis and/or pneumonia * Current home cardiac medications include aspirin 81 mg daily, Lipitor 40 mg at night, amlodipine 5 mg daily, Lasix 20 mg twice a day, losartan 25 mg daily, metoprolol tartrate 37.5 mg twice a day * Most recent echocardiogram obtained in 2016 reveals ejection fraction 55-60%, mild mitral education, and mild tricuspid regurgitation * Cardiac catheterization history: November 2016 revealing patent stent to the LAD. 40% plaque beyond the stented segment unchanged from before. Diffuse disease in the distal branches of the right coronary artery. Circumflex is a 40% ostial lesion which is unchanged. Medical management was recommended. 06/02/2023 Patient examined this morning at the bedside. Patient denies chest pain or pressure. She denies shortness of breath. She remains on IV antibiotics for urinary tract infection. Vital signs are stable. Echocardiogram completed revealing ejection fraction 55-60% with moderate concentric LVH, and no significant valvular disease noted. Patient's hyponatremia worsening today at 120. Potassium 5.3. Creatinine 2.06. PHYSICAL EXAM: VITAL SIGNS: Reviewed. GENERAL: Well-developed in no acute distress. HEENT: Head is normocephalic. Pupils are equal, round. Sclerae anicteric. Mucous membranes of the mouth are moist. Neck supple. No JVD or thyromegaly LUNGS: Respirations even and unlabored. Lungs essentially clear to auscultation bilaterally. HEART: Regular rate and rhythm. S1 and S2 heard. ABDOMEN: Soft. Nondistended. Nontender. EXTREMITIES: Normal range of motion. No clubbing or cyanosis. Peripheral pulses intact. No lower extremity edema NEUROLOGIC: Awake and alert. Oriented x 3. ASSESSMENT: Generalized weakness Urinary tract infection Leukocytosis Abnormal troponins, flat, not suggestive of acute coronary syndrome, likely secondary to infectious process and acute kidney injury Hyponatremia Hyperkalemia Acute kidney injury Coronary artery disease with previous stenting of LAD, 2016 Diabetes, uncontrolled on admission Hypertension Hyperlipidemia PLAN: Continue current cardiac medications Treatment of infectious process per primary medicine Hold Vi. Monitor kidney function. Further recommendations pending patient's course Nurse practitioner note has been reviewed by physician. Signing provider agrees with the documented findings, assessment, and plan of care. Objective - Vital Signs Vital signs: Vital Signs Temp 97.5 F L 06/02/23 07:01 Pulse 69 06/02/23 09:02 Resp 17 06/02/23 08:00 BP 144/71 06/02/23 09:02 Pulse Ox 99 06/02/23 07:44 FiO2 Intake & Output 06/01/23 06/02/23 06/02/23 18:59 06:59 18:59 Output Total 200 Balance -200 Output: Urine 200 Other: Voiding Method External Catheter - Labs CBC & Chem 7: 06/02/23 07:10 06/02/23 07:10 Labs: Abnormal Lab Results - Last 24 Hours (Table) 06/01/23 06/01/23 06/01/23 Range/Units 12:58 17:33 20:47 WBC (3.8-10.6) k/uL Neutrophils # (1.3-7.7) k/uL Sodium (137-145) mmol/L Potassium (3.5-5.1) mmol/L Chloride (98-107) mmol/L Carbon Dioxide (22-30) mmol/L BUN (7-17) mg/dL Creatinine (0.52-1.04) mg/dL Glucose (74-99) mg/dL POC Glucose (mg/dL) 422 H 144 H 215 H (70-110) mg/dL Alkaline Phosphatase (38-126) U/L Total Protein (6.3-8.2) g/dL 06/02/23 06/02/23 06/02/23 Range/Units 06:27 07:10 07:10 WBC 12.5 H (3.8-10.6) k/uL Neutrophils # 10.2 H (1.3-7.7) k/uL Sodium 120 L (137-145) mmol/L Potassium 5.3 H (3.5-5.1) mmol/L Chloride 90 L (98-107) mmol/L Carbon Dioxide 19 L (22-30) mmol/L BUN 61 H (7-17) mg/dL Creatinine 2.06 H (0.52-1.04) mg/dL Glucose 387 H (74-99) mg/dL POC Glucose (mg/dL) 378 H (70-110) mg/dL Alkaline Phosphatase 131 H (38-126) U/L Total Protein 6.1 L (6.3-8.2) g/dL
[2023-06-02 11:32] LABS: Glucose,Whole Blood 373 mg/dL (70-110)
--- NOTE | 2023-06-02 13:10 | P.GSCN ---
History of Present Illness Consult date: 06/02/23 History of present illness: CHIEF COMPLAINT: Abdominal pain and chest pressure HISTORY OF PRESENT ILLNESS: This is a 73-year-old female who presented with chest pressure 2 days and abdominal pain 1 week. Patient has been having nausea and vomiting. She's been unable to tolerate food for the past 5 days. She does report having reflux like symptoms. Patient is currently on antibiotics for UTI. Patient had computed tomography scan abdomen and pelvis completed showing no evidence for acute process. Appendix is not definitively visualized. Cecum has a more medialized position. No evidence of obstructive uropathy. Distal esophageal wall thickening up to 12 mm correlate for esophagitis. Cholelithiasis and colonic diverticulosis. Patient reports no prior history of EGD. She reports her last colonoscopy was 6 months ago and reported as normal. Patient reports a surgical history of appendectomy with her prior over 45 years ago. Patient also has coronary artery disease with cardiac stents and lung cancer with lobectomy. Patient evaluated by cardiology due to elevated troponins and acute coronary syndrome was ruled out by cardiology service. Surgical service has been consulted in regards to right lower quadrant abdominal pain. PAST MEDICAL HISTORY: See below PAST SURGICAL HISTORY: See below MEDICATIONS: See below ALLERGIES: See below SOCIAL HISTORY: No illicit drug use. REVIEW OF SYSTEMS: CONSTITUTIONAL: Denies fever or chills. HEENT: Denies blurred vision, vision changes, or eye pain. Denies hemoptysis CARDIOVASCULAR: Denies chest pain or pressure. RESPIRATORY: No shortness of breath. GASTROINTESTINAL: See HPI for pertinent findings HEMATOLOGIC: Denies bleeding disorders. GENITOURINARY: Denies any blood in urine or increased urinary frequency. SKIN: Denies pruitis. Denies rash. PHYSICAL EXAM: VITAL SIGNS: Reviewed GENERAL: Well-developed in no acute distress. HEENT: No sclera icterus. ABDOMEN: Soft. Nondistended. Tenderness to palpation of the right upper quadrant epigastric and right lower quadrant NEUROLOGIC: Alert and oriented. Cranial nerves II through XII grossly intact. LABORATORY DATA: WBC 16.1 down to 12.5 Hgb 13.2 platelets 251 Sodium is 120 potassium is 5.3 creatinine 2.06 Glucose 535 down 37 Total bilirubin 0.5 AST 23 ALT 22 alk phos 131 Mildly elevated troponins Lipase 188 Positive urinalysis Acetone negative IMAGING: Computed tomography scan of pelvis reported no evidence for acute process. The appendix is not definitively visualized. The cecum has a more medialized position. No evidence for obstructive uropathy. Distal esophageal wall thickening up to 12 mm correlate for esophagitis. This is slightly worse from prior study. Consider endoscopy as clinically warranted. Cholelithiasis. Colonic diverticulosis. Echo shows EF of 55-60%. Moderate concentric LVH. No wall motion abnormality ASSESSMENT: 1. Right upper quadrant, epigastric and right lower quadrant abdominal pain 2. Cholelithiasis 3. Distal esophageal wall thickening correlate for esophagitis noted on computed tomography scan 4. Mildly elevated troponins. Evaluated by cardiology 5. Hyponatremia followed by nephrology 6. History of appendectomy per patient 7. UTI PLAN: -Gallbladder ultrasound ordered for further evaluation of abdominal pain and gallstones -Further recommendations forthcoming per surgeon -Continue clear liquid diet -Continue antibiotics -Continue Protonix Physician Documentation Billing Clerk note has been reviewed by physician. Signing provider agrees with the documented findings, assessment, and plan of care. Past Medical History Past Medical History: Asthma, Coronary Artery Disease (CAD), Cancer, Chest Pain / Angina, COPD, Diabetes Mellitus, Deep Vein Thrombosis (DVT), GERD/Reflux, Hyperlipidemia, Hypertension, Myocardial Infarction (UT), Osteoarthritis (OA) Additional Past Medical History / Comment(s): mentally incapacitated per guardian, morbid obesity, Chronic kidney disease stage IV, chronic bronchitis, lobectomy for lung cancer, abdominal wall hernia R side, generalized weakness, gait dysfunction, falls, DJD T12 and L1, urine incontinence at times. 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 URINE Past Surgical History: Section, Heart Catheterization, Heart Elisa terization With Stent, Orthopedic Surgery Additional Past Surgical History / Comment(s): Lung lobectomy, ORIF RIGHT ULNA/RADIUS, left rotator cuff repair, cataract removals, heel surgery r/t infection (laterality unknown), colonoscopies/ benign polypectomy, PCI/ stent x2, guardian unable to confirm Past Anesthesia/Blood Transfusion Reactions: No Reported Reaction Date of Last Stent Placement:: 11/2016 Past Psychological History: Anxiety, Bipolar, Depression Smoking Status: Unknown if ever smoked Past Alcohol Use History: None Reported Past Drug Use History: None Reported - Past Family History Brother(s) Family Medical History: Cancer Medications and Allergies Home Medications Medication Instructions Recorded Confirmed Type Aspirin 81 mg PO DAILY #30 chew 11/16/16 06/01/23 Rx Atorvastatin [Lipitor] 40 mg PO HS 11/13/17 06/01/23 History ARIPiprazole [Abilify] 10 mg PO DAILY 07/22/21 06/01/23 History DULoxetine HCL [Cymbalta] 60 mg PO BID 07/22/21 06/01/23 History Loratadine [Claritin] 10 mg PO DAILY 07/22/21 06/01/23 History Losartan [Cozaar] 25 mg PO DAILY 07/22/21 06/01/23 History Mirabegron [Myrbetriq] 25 mg PO DAILY 07/22/21 06/01/23 History traZODone HCL 50 mg PO HS 07/22/21 06/01/23 History allopurinoL [Zyloprim] 100 mg PO DAILY 01/26/22 06/01/23 History Folic Acid 1 mg PO DAILY #30 tablet 02/03/22 06/01/23 Rx Sodium Chloride Tab 1 gm PO DAILY tab 02/03/22 06/01/23 Rx Thiamine [Vitamin B-1] 100 mg PO DAILY #30 tablet 02/03/22 06/01/23 Rx Doxycycline Monohydrate 100 mg PO BID 06/01/23 06/01/23 History Ergocalciferol [Vitamin D2 (1250 1,250 mcg PO Q7D 06/01/23 06/01/23 History Mcg = [id number] Iu)] Ferrous Sulfate [Feosol] 325 mg PO DAILY 06/01/23 06/01/23 History Furosemide [Lasix] 20 mg PO BID 06/01/23 06/01/23 History HYDROcodone/APAP 10-325MG [Rex 1 tab PO Q6HR PRN 06/01/23 06/01/23 History 10-325] Loperamide [Imodium] 2 - 4 mg PO QID PRN 06/01/23 06/01/23 History Metoprolol Tartrate [Lopressor] 37.5 mg PO BID 06/01/23 06/01/23 History Multivit-Min/FA/Lycopen/Lutein 1 tab PO DAILY 06/01/23 06/01/23 History [Centrum Silver Tablet] Omeprazole [PriLOSEC] 20 mg PO DAILY 06/01/23 06/01/23 History Oxybutynin ER [Ditropan XL] 15 mg PO DAILY 06/01/23 06/01/23 History Pantoprazole Sodium [Protonix] 20 mg PO DAILY 06/01/23 06/01/23 History Potassium Chloride [Klor-Con M20] 20 meq PO DAILY 06/01/23 06/01/23 History amLODIPine [Norvasc] 5 mg PO DAILY 06/01/23 06/01/23 History Allergies Allergy/AdvReac Type Severity Reaction Status Date / Time cephalexin monohydrate Allergy Itching. Verified 06/01/23 09:17 [From Keflex] SWELLING Surgical - Exam Vital Signs Temp Pulse Resp BP Pulse Ox 98.2 F 118 H 20 163/93 98 05/31/23 23:01 05/31/23 23:01 05/31/23 23:01 05/31/23 23:01 05/31/23 23:01 Results - Labs 06/02/23 07:10 06/02/23 07:10 Abnormal Lab Results - Last 24 Hours (Table) 06/01/23 06/01/23 06/01/23 Range/Units 12:58 17:33 20:47 WBC (3.8-10.6) k/uL Neutrophils # (1.3-7.7) k/uL Sodium (137-145) mmol/L Potassium (3.5-5.1) mmol/L Chloride (98-107) mmol/L Carbon Dioxide (22-30) mmol/L BUN (7-17) mg/dL Creatinine (0.52-1.04) mg/dL Glucose (74-99) mg/dL POC Glucose (mg/dL) 422 H 144 H 215 H (70-110) mg/dL Alkaline Phosphatase (38-126) U/L Total Protein (6.3-8.2) g/dL 06/02/23 06/02/23 06/02/23 Range/Units 06:27 07:10 07:10 WBC 12.5 H (3.8-10.6) k/uL Neutrophils # 10.2 H (1.3-7.7) k/uL Sodium 120 L (137-145) mmol/L Potassium 5.3 H (3.5-5.1) mmol/L Chloride 90 L (98-107) mmol/L Carbon Dioxide 19 L (22-30) mmol/L BUN 61 H (7-17) mg/dL Creatinine 2.06 H (0.52-1.04) mg/dL Glucose 387 H (74-99) mg/dL POC Glucose (mg/dL) 378 H (70-110) mg/dL Alkaline Phosphatase 131 H (38-126) U/L Total Protein 6.1 L (6.3-8.2) g/dL Diabetes panel 06/02/23 Range/Units 07:10 Sodium 120 L (137-145) mmol/L Potassium 5.3 H (3.5-5.1) mmol/L Chloride 90 L (98-107) mmol/L Carbon Dioxide 19 L (22-30) mmol/L BUN 61 H (7-17) mg/dL Creatinine 2.06 H (0.52-1.04) mg/dL Glucose 387 H (74-99) mg/dL Calcium 8.6 (8.4-10.2) mg/dL AST 23 (14-36) U/L ALT 22 (4-34) U/L Alkaline Phosphatase 131 H (38-126) U/L Total Protein 6.1 L (6.3-8.2) g/dL Albumin 3.5 (3.5-5.0) g/dL Calcium panel 06/02/23 Range/Units 07:10 Calcium 8.6 (8.4-10.2) mg/dL Albumin 3.5 (3.5-5.0) g/dL Pituitary panel 06/02/23 Range/Units 07:10 Sodium 120 L (137-145) mmol/L Potassium 5.3 H (3.5-5.1) mmol/L Chloride 90 L (98-107) mmol/L Carbon Dioxide 19 L (22-30) mmol/L BUN 61 H (7-17) mg/dL Creatinine 2.06 H (0.52-1.04) mg/dL Glucose 387 H (74-99) mg/dL Calcium 8.6 (8.4-10.2) mg/dL Adrenal panel 06/02/23 Range/Units 07:10 Sodium 120 L (137-145) mmol/L Potassium 5.3 H (3.5-5.1) mmol/L Chloride 90 L (98-107) mmol/L Carbon Dioxide 19 L (22-30) mmol/L BUN 61 H (7-17) mg/dL Creatinine 2.06 H (0.52-1.04) mg/dL Glucose 387 H (74-99) mg/dL Calcium 8.6 (8.4-10.2) mg/dL Total Bilirubin 0.5 (0.2-1.3) mg/dL AST 23 (14-36) U/L ALT 22 (4-34) U/L Alkaline Phosphatase 131 H (38-126) U/L Total Protein 6.1 L (6.3-8.2) g/dL Albumin 3.5 (3.5-5.0) g/dL
[2023-06-02 16:36] LABS: Glucose,Whole Blood 287 mg/dL (70-110)
--- NOTE | 2023-06-02 16:37 | US ---
EXAMINATION TYPE: US gallbladder DATE OF EXAM: 06/02/2023 Exam done portable COMPARISON: US 2018. CT abdomen and pelvis one day earlier CLINICAL INDICATION: Female, 73 years old with history of RUQ pain, gallstones; TECHNIQUE: Multiple sonographic images of the right upper quadrant are obtained. FINDINGS: EXAM MEASUREMENTS: Liver Length: 18.3 cm Gallbladder Wall: 0.2 cm CBD: 0.7 cm Right Kidney: 9.2 x 5.0 x 4.7 cm Pancreas: duct seen measuring 0.3cm Liver: enlarged Gallbladder: 0.6cm echogenic focus with low level echoes Evidence for sonographic Lazo's sign: no CBD: Upper limits of normal for patient's age Right Kidney: wnl Visualized portion of pancreas unremarkable. Portions obscured by overlying bowel gas. Visualized briseyda er measures upper limits of normal in size and slightly heterogeneous in appearance without suspiciou s mass. No biliary dilatation is evident. No right-sided hydronephrosis. Cortical thinning is seen. G allbladder shows small mobile stone. There is no pericholecystic fluid or abnormal wall thickening. IMPRESSION: Gallstone without ultrasound evidence for acute cholecystitis.
--- NOTE | 2023-06-02 19:01 | P.PN ---
Progress Note - Text Progress Note Date: 06/02/23 Chief Complaint: Nausea vomiting This is a 73-year-old patient, follows with visiting physicians Dr. Waller. At her baseline patient does use a cane sometimes a walker. Presents with 5 days of nausea vomiting. Unable to keep anything down. Right lower quadrant pain. Normally has a bowel movement once a week. No BM for last 2 days. Chills. Patient is hard of hearing. Tired rundown. Also having some intermittent chest pain. Patient is incontinent of urine. June 02: No further nausea vomiting since yesterday. Continues to have right lower quadrant pain. No bowel movement. On clear liquid diet. Computed tomography scan of the abdomen showed some gallstones. Otherwise unremarkable. Gallbladder ultrasound: Small mobile stones. No pericholecystic fluid or abnormal wall thickening. Suspect underlying mild colitis. Worsening renal function. Nephrology consulted. Some decrease in bicarbonate. We will change to sodium bicarbonate drip. No renal offensive drugs. Possibly right-sided low grade colitis. Strict I's and O's. Active Medications Acetaminophen (Acetaminophen Tab 325 Mg Tab) 650 mg PO Q6HR PRN PRN Reason: Mild Pain or Fever > 100.5 Hydrocodone Bitart/Acetaminophen (Hydrocodone/Apap 5-325mg 1 Each Tab) 1 each PO Q4HR PRN PRN Reason: Moderate Pain (Scale 4 to 6) Last Admin: 06/02/23 17:22 Dose: 1 each Allopurinol (Allopurinol 100 Mg Tab) 100 mg PO DAILY [facility] Last Admin: 06/02/23 09:08 Dose: 100 mg Amlodipine Besylate (Amlodipine 5 Mg Tab) 5 mg PO DAILY [facility] Aripiprazole (Aripiprazole 10 Mg Tab) 10 mg PO DAILY [facility] Last Admin: 06/02/23 09:09 Dose: 10 mg Aspirin (Aspirin 81 Mg) 81 mg PO DAILY [facility] Last Admin: 06/02/23 09:09 Dose: 81 mg Atorvastatin Calcium (Atorvastatin 40 Mg Tab) 40 mg PO HS [facility] Last Admin: 06/01/23 20:55 Dose: 40 mg Dextrose/Water (Dextrose 50% Syringe 50 Ml) 25 ml IVP PER PROTOCOL PRN; Protocol PRN Reason: Hypoglycemia Dextrose/Water (Dextrose 50% Syringe 50 Ml) 50 ml IVP PER PROTOCOL PRN; Protocol PRN Reason: Hypoglycemia Duloxetine HCl (Duloxetine Hcl 60 Mg Capsule.) 60 mg PO BID [facility] Last Admin: 06/02/23 09:09 Dose: 60 mg Ferrous Sulfate (Ferrous Sulfate 325 Mg Tab) 325 mg PO DAILY [facility] Last Admin: 06/02/23 09:09 Dose: 325 mg Folic Acid (Folic Acid 1 Mg Tab) 1 mg PO DAILY [facility] Last Admin: 06/02/23 09:09 Dose: 1 mg Levofloxacin 500 mg/ IV (Solution) 100 mls @ 100 mls/hr IVPB Q48H [facility] Sodium Bicarbonate 150 ml/ (Dextrose/Water) 1,150 mls @ 150 mls/hr IV .Q7H40M [facility] Insulin Aspart (Insulin Aspart (Novolog) 100 Unit/Ml Vial) 0 unit SQ ACHS [facility]; Protocol Last Admin: 06/02/23 17:16 Dose: 6 unit Metoprolol Tartrate (Metoprolol Tartrate 12.5 Mg Tab) 37.5 mg PO BID [facility] Last Admin: 06/02/23 09:10 Dose: 37.5 mg Morphine Sulfate (Morphine Sulfate 4 Mg/Ml Syringe) 4 mg IV Q4HR PRN PRN Reason: Severe Pain (Scale 7 to 10) Last Admin: 06/01/23 06:08 Dose: 4 mg Multivitamins (Multivitamins, Thera 1 Each Tab) 1 each PO DAILY [facility] Last Admin: 06/02/23 09:10 Dose: 1 each Naloxone HCl (Naloxone 0.4 Mg/Ml 1 Ml Vial) 0.2 mg IV Q2M PRN PRN Reason: Opioid Reversal Non-Formulary Medication (Mirabegron [Myrbetriq]) 25 mg PO DAILY [facility] Last Admin: 06/02/23 09:12 Dose: Not Given Ondansetron HCl (Ondansetron 4 Mg/2 Ml Vial) 4 mg IVP Q8HR PRN PRN Reason: Nausea And Vomiting Last Admin: 06/02/23 05:12 Dose: 4 mg Oxybutynin Chloride (Oxybutynin 15 Mg Tab.Er.24) 15 mg PO DAILY [facility] Last Admin: 06/02/23 09:10 Dose: 15 mg Pantoprazole Sodium (Pantoprazole 40 Mg Tablet) 40 mg PO AC-BRKFST [facility] Last Admin: 06/02/23 06:54 Dose: 40 mg Thiamine HCl (Thiamine 100 Mg Tab) 100 mg PO DAILY [facility] Last Admin: 06/02/23 09:11 Dose: 100 mg Trazodone HCl (Trazodone Hcl 50 Mg Tab) 50 mg PO HS [facility] Last Admin: 06/01/23 20:55 Dose: 50 mg Past medical history to include: Depression, hyperlipidemia, urinary stress incontinence, diabetes mellitus type 2, CAD, COPD, DVT, GERD, hyperlipidemia, mentally incapacitated, chronic kidney disease stage IV, right lobectomy for lung cancer, abdominal wall hernia, Social history: Legal guardian Marianela Syed. Past history of alcohol dependence. Has 2 roommates. Has a caregiver. Family history: Cancer Physical examination: VITAL SIGNS: 97.6, 57, 16, 127/79, 98% on 2 L GENERAL: Laying in bed, awake a bit tired EYES: Pupils equal. Conjunctiva normal. HEENT: External appearance of nose and ears normal, oral cavity dry mucous membranes. Heart appearing NECK: JVD not raised; masses not palpable. HEART: First and second heart sounds are normal; no edema. LUNGS: Respiratory rate normal; clear to auscultation. ABDOMEN: Soft, non-abdominal tenderness, no guarding rigidity abdominal wall hernia nontender, liver spleen not palpable, no masses palpable. PSYCH: Answering questions appropriately MUSCULOSKELETAL:No Clubbing/cyanosis;muscles-grossly intact. OA INVESTIGATIONS, reviewed in the clinical context: June 02: White count 12.5 hemoglobin 13.2 sodium 120 potassium 5.3 BUN 61 creatinine 2.06 glucose 387 Gallbladder ultrasound: Small mobile stones. No pericholecystic fluid. No gallbladder wall thickening. Computed tomography scan abdomen pelvis: No evidence of acute process. Gallstones. Colonic diverticulosis. Serum acetone: Negative June 01: White count 16.1 hemoglobin 14.3 platelets 258 sodium 124 potassium 5.4 BUN 47 creatinine 1.37 blood glucose 535 lactic acid 2.2 Troponin I 0.026, 0.037, 0.044 EKG tracing personally reviewed by me-normal sinus rhythm. Chest x-ray film personally reviewed by me-possible infiltrates Previous labs: Creatinine 0.851 01/2022 Assessment and plan: -Acute abdominal pain. 34 days. Along with nausea vomiting. Some chills. Elevated white count. Unable to keep anything down. Tenderness in the right lower quadrant.: Possible right-sided low-grade colitis IV ceftriaxone. full liquid diet. Being followed by surgery. Computed tomography scan of the abdomen : Nothing acute Gallbladder ultrasound: Small mobile stones. -Acute kidney injury possibly combination of prerenal and ATN. : Worsening IV fluids. Follow renal function Nephrology consulted -Hyponatremia, hypovolemia: Worsening Fluid restriction 1500 mL a day. Check serum osmolality, urine sodium Avoid free fluid. -Metabolic acidosis from renal failure: IV bicarbonate drip and start -Morbid obesity BMI 49.6 Weight loss measures -Chronice constipation has a bowel movement normally once a day. -Diabetes mellitus type 2 on insulin, uncontrolled with hyperglycemia [patient takes 2 different tests of insulin at home] Follow Accu-Cheks with sliding scale Start Levemir 16 units daily at bedtime. -Depression and anxiety Abilify 10 mg a day. Cymbalta 60 mg twice a day. -Essential hypertension Norvasc Lopressor 25 mg twice a day Hold Cozaar because of renal function -Hyperuricemia Allopurinol 100 mg a day -GERD Protonix 20 mg daily -Chronic urinary stress incontinence Oxybutynin 15 mg a day, Myrbetriq 25 mg a day -Chronic arthritis with pain Irma 10 1 tablet every 6 when necessary -Chronic hard of hearing -Chronic medical debility. At her baseline uses a walker -Legal guardian: Marianela Syed Consult nephrology. Start bicarbonate drip. Add Levemir. Follow labs. Full liquid-renal diet
[2023-06-02 20:05] LABS: Glucose,Whole Blood 206 mg/dL (70-110)
[2023-06-02] MEDS: DEXTROSE 5% IN WATER 1,000 ML with SODIUM BICARB (1 MEQ/ML) 150 ML IV SCH (23:45)
[2023-06-02] MEDS: ATORVASTATIN 40 MG TAB PO SCH (23:45)
[2023-06-02] MEDS: traZODone HCL 50 MG TAB PO SCH (23:46)
[2023-06-02] MEDS: INSULIN DETEMIR (LEVEMIR) 100 UNIT/ML SYR SQ SCH (23:55)
[2023-06-03] MEDS: HYDROcodone/APAP 5-325MG 1 EACH TAB PO PRN ×3 (04:23→20:38)
[2023-06-03 06:29] LABS: Glucose,Whole Blood 378 mg/dL (70-110)
[2023-06-03] MEDS: INSULIN ASPART (NovoLOG) 100 UNIT/ML VIAL SQ SCH ×4 (07:02→20:38)
[2023-06-03] MEDS: PANTOPRAZOLE 40 MG TABLET PO SCH (07:02)
[2023-06-03] MEDS: DEXTROSE 5% IN WATER 1,000 ML with SODIUM BICARB (1 MEQ/ML) 150 ML IV SCH ×2 (07:07→08:32)
[2023-06-03] MEDS: allopurinoL 100 MG TAB PO SCH (08:31)
[2023-06-03] MEDS: ASPIRIN 81 MG PO SCH (08:31)
[2023-06-03] MEDS: ARIPiprazole 10 MG TAB PO SCH (08:31)
[2023-06-03] MEDS: DULoxetine HCL 60 MG CAPSULE.DR PO SCH ×2 (08:31→20:38)
[2023-06-03] MEDS: MULTIVITAMINS, THERA 1 EACH TAB PO SCH (08:31)
[2023-06-03] MEDS: THIAMINE 100 MG TAB PO SCH (08:31)
[2023-06-03] MEDS: FERROUS SULFATE 325 MG TAB PO SCH (08:31)
[2023-06-03] MEDS: amLODIPine 5 MG TAB PO SCH (08:31)
[2023-06-03] MEDS: METOPROLOL TARTRATE 12.5 MG TAB PO SCH ×2 (08:31→20:38)
[2023-06-03] MEDS: FOLIC ACID 1 MG TAB PO SCH (08:31)
[2023-06-03] MEDS: OXYBUTYNIN 15 MG TAB.ER.24 PO SCH (08:32)
[2023-06-03] MEDS: NON FORMULARY DRUG (Mirabegron [Myrbetriq] 25 MG Tablet) PO SCH (08:33)
[2023-06-03 08:48] LABS: African American GFR (CKD) 43 (>60 ml/min/1.73 sqM); Anion Gap 10 mmol/L; Blood Urea Nitrogen 47 mg/dL (7-17); Carbon Dioxide 20 mmol/L (22-30); Chloride 92 mmol/L (98-107); Glucose 349 mg/dL (74-99); Non-African American GFR(CKD) 38 (>60 ml/min/1.73 sqM); Potassium 5.3 mmol/L (3.5-5.1); Sodium 122 mmol/L (137-145)
[2023-06-03] MEDS ORDERED: SODIUM CHLORIDE TAB 1 GM TAB PO STA (09:38)
[2023-06-03] MEDS: LEVOFLOXACIN 500MG-D5W PMX 500 MG in DEXTROSE/WATER 1 100ML.BAG IVPB SCH (11:13)
--- NOTE | 2023-06-03 11:14 | P.PN ---
Subjective HISTORY OF PRESENT ILLNESS: This is a 73-year-old female with a past medical history significant for hypertension, hyperlipidemia, and coronary artery disease with previous stenting. Patient does not follow with a process development technician. We have been asked to see the patient in consultation for chest pain with abnormal troponins. Patient examined at the bedside in the emergency room. Patient presented to the hospital with a chief complaint of weakness. She states that she has been weak at home for the past 3-4 days and is having a hard time getting around at home. She also reports significant burning with urination for the past 4 days. Patient was found to have leukocytosis with a white count of 16. She is receiving antibiotics for urinary tract infection. The patient reports also having some chest pain at home. She reports it feels like a thumping sensation and also a pressure type sensation. She also reports feeling "gassy" and has been burping more than usual for the past couple days. * EKG reveals sinus mechanism with no signs of acute ischemia * Chest xray suspect small patchy airspace opacities over bilateral lower lung zones, may represent atelectasis and/or pneumonia * Current home cardiac medications include aspirin 81 mg daily, Lipitor 40 mg at night, amlodipine 5 mg daily, Lasix 20 mg twice a day, losartan 25 mg daily, metoprolol tartrate 37.5 mg twice a day * Most recent echocardiogram obtained in 2017 reveals ejection fraction 55-60%, mild mitral education, and mild tricuspid regurgitation * Cardiac catheterization history: November 2016 revealing patent stent to the LAD. 40% plaque beyond the stented segment unchanged from before. Diffuse disease in the distal branches of the right coronary artery. Circumflex is a 40% ostial lesion which is unchanged. Medical management was recommended. 06/02/2023 Patient examined this morning at the bedside. Patient denies chest pain or pressure. She denies shortness of breath. She remains on IV antibiotics for urinary tract infection. Vital signs are stable. Echocardiogram completed revealing ejection fraction 55-60% with moderate concentric LVH, and no significant valvular disease noted. Patient's hyponatremia worsening today at 120. Potassium 5.3. Creatinine 2.06. 06/03/2023 Patient examined this morning is bedside. Patient denies chest pain or pressure. She denies shortness of breath. She continues to report mild abdominal pain. Gallbladder ultrasound completed revealing gallstones with no evidence of acute cholecystitis. Creatinine improving. 1.38 today. Sodium 122. PHYSICAL EXAM: VITAL SIGNS: Reviewed. GENERAL: Well-developed in no acute distress. HEENT: Head is normocephalic. Pupils are equal, round. Sclerae anicteric. Mucous membranes of the mouth are moist. Neck supple. No JVD or thyromegaly LUNGS: Respirations even and unlabored. Lungs essentially clear to auscultation bilaterally. HEART: Regular rate and rhythm. S1 and S2 heard. ABDOMEN: Soft. Nondistended. Nontender. EXTREMITIES: Normal range of motion. No clubbing or cyanosis. Peripheral pulses intact. No lower extremity edema NEUROLOGIC: Awake and alert. Oriented x 3. ASSESSMENT: Generalized weakness Urinary tract infection Leukocytosis Abnormal troponins, flat, not suggestive of acute coronary syndrome, likely secondary to infectious process and acute kidney injury Hyponatremia Hyperkalemia Acute kidney injury Coronary artery disease with previous stenting of LAD, 2016 Diabetes, uncontrolled on admission Hypertension Hyperlipidemia PLAN: Continue current cardiac medications Treatment of infectious process per primary medicine Hold Vi. Monitor kidney function. Patient is currently stable from a cardiac perspective with no further inpatient recommendations We will sign off. Please reconsult if needed. Nurse practitioner note has been reviewed by physician. Signing provider agrees with the documented findings, assessment, and plan of care. Objective - Vital Signs Vital signs: Vital Signs Temp 98.4 F 06/03/23 06:56 Pulse 62 06/03/23 06:56 Resp 17 06/03/23 06:56 BP 103/67 06/03/23 06:56 Pulse Ox 95 06/03/23 09:54 FiO2 Intake & Output 06/02/23 06/03/23 06/03/23 18:59 06:59 18:59 Output Total 900 800 Balance -900 -800 Output: Urine 900 800 Other: Voiding Method External Catheter - Labs CBC & Chem 7: 06/02/23 07:10 06/03/23 07:15 Labs: Abnormal Lab Results - Last 24 Hours (Table) 06/02/23 06/02/23 06/02/23 Range/Units 11:31 16:35 20:03 Sodium (137-145) mmol/L Potassium (3.5-5.1) mmol/L Chloride (98-107) mmol/L Carbon Dioxide (22-30) mmol/L BUN (7-17) mg/dL Creatinine (0.52-1.04) mg/dL Glucose (74-99) mg/dL POC Glucose (mg/dL) 373 H 287 H 206 H (70-110) mg/dL Calcium (8.4-10.2) mg/dL Ur Random Sodium (40-220) mmol/L 06/03/23 06/03/23 06/03/23 Range/Units 05:30 06:28 07:15 Sodium 122 L (137-145) mmol/L Potassium 5.3 H (3.5-5.1) mmol/L Chloride 92 L (98-107) mmol/L Carbon Dioxide 20 L (22-30) mmol/L BUN 47 H (7-17) mg/dL Creatinine 1.38 H (0.52-1.04) mg/dL Glucose 349 H (74-99) mg/dL POC Glucose (mg/dL) 378 H (70-110) mg/dL Calcium 8.0 L (8.4-10.2) mg/dL Ur Random Sodium <20 L (40-220) mmol/L Microbiology - Last 24 Hours (Table) 06/01/23 00:16 Urine Culture - Preliminary Urine,Voided Gram Neg Bacilli
[2023-06-03 11:58] LABS: Glucose,Whole Blood 313 mg/dL (70-110)
[2023-06-03] MEDS: SODIUM CHLORIDE 0.45% 1,000 ML with SODIUM BICARB (1 MEQ/ML) 150 ML IV SCH ×2 (12:09)
--- NOTE | 2023-06-03 12:15 | P.NPCON ---
History of Present Illness - Reason for Consult hyponatremia - History of Present Illness Patient is a 73-year-old female with history of depression, type 2 diabetes, coronary artery disease and hypertension. Patient is admitted to the hospital with complaints of nausea and vomiting. No history of diarrhea. Patient has also had a right upper abdominal pain. Abdominal CT shows evidence of gallstone. Serum sodium was 124 and admission. Patient was maintained on half normal saline and sodium dropped to 120. Fluids are now discontinued and serum sodium is at 122 today. No previous history of hyponatremia No thiazide diuretics noted on home med list. Review of Systems As per HPI Past Medical History Past Medical History: Asthma, Coronary Artery Disease (CAD), Cancer, Chest Pain / Angina, COPD, Diabetes Mellitus, Deep Vein Thrombosis (DVT), GERD/Reflux, Hyperlipidemia, Hypertension, Myocardial Infarction (MD), Osteoarthritis (OA) Additional Past Medical History / Comment(s): mentally incapacitated per guardian, morbid obesity, Chronic kidney disease stage IV, chronic bronchitis, lobectomy for lung cancer, abdominal wall hernia R side, generalized weakness, gait dysfunction, falls, DJD T12 and L1, urine incontinence at times. The patient lives w/her guardian Marianela Syed who is new to this role so wasn't able to confirm health hx., gets bubble pack of meds set up by Visiting Physician- takes own meds per guardian Last Myocardial Infarction Date:: 01/20/09 History of Any Multi-Drug Resistant Organisms: VRE Date of last positivie culture/infection: 11/13/17 MDRO Source:: VRE URINE Past Surgical History: Section, Heart Catheterization, Heart Catheterization With Stent, Orthopedic Surgery Additional Past Surgical History / Comment(s): Lung lobectomy, ORIF RIGHT ULNA/RADIUS, left rotator cuff repair, cataract removals, heel surgery r/t infection (laterality unknown), colonoscopies/ benign polypectomy, PCI/ stent x2, guardian unable to confirm Past Anesthesia/Blood Transfusion Reactions: No Reported Reaction Date of Last Stent Placement:: 11/2016 Past Psychological History: Anxiety, Bipolar, Depression Smoking Status: Unknown if ever smoked Past Alcohol Use History: None Reported Past Drug Use History: None Reported - Past Family History Brother(s) Family Medical History: Cancer Medications and Allergies Home Medications Medication Instructions Recorded Confirmed Type Aspirin 81 mg PO DAILY #30 chew 11/16/16 06/01/23 Rx Atorvastatin [Lipitor] 40 mg PO HS 11/13/17 06/01/23 History ARIPiprazole [Abilify] 10 mg PO DAILY 07/22/21 06/01/23 History DULoxetine HCL [Cymbalta] 60 mg PO BID 07/22/21 06/01/23 History Loratadine [Claritin] 10 mg PO DAILY 07/22/21 06/01/23 History Losartan [Cozaar] 25 mg PO DAILY 07/22/21 06/01/23 History Mirabegron [Myrbetriq] 25 mg PO DAILY 07/22/21 06/01/23 History traZODone HCL 50 mg PO HS 07/22/21 06/01/23 History allopurinoL [Zyloprim] 100 mg PO DAILY 01/26/22 06/01/23 History Folic Acid 1 mg PO DAILY #30 tablet 02/03/22 06/01/23 Rx Sodium Chloride Tab 1 gm PO DAILY tab 02/03/22 06/01/23 Rx Thiamine [Vitamin B-1] 100 mg PO DAILY #30 tablet 02/03/22 06/01/23 Rx Doxycycline Monohydrate 100 mg PO BID 06/01/23 06/01/23 History Ergocalciferol [Vitamin D2 (1250 1,250 mcg PO Q7D 06/01/23 06/01/23 History Mcg = [id number] Iu)] Ferrous Sulfate [Feosol] 325 mg PO DAILY 06/01/23 06/01/23 History Furosemide [Lasix] 20 mg PO BID 06/01/23 06/01/23 History HYDROcodone/APAP 10-325MG [[place] 1 tab PO Q6HR PRN 06/01/23 06/01/23 History 10-325] Loperamide [Imodium] 2 - 4 mg PO QID PRN 06/01/23 06/01/23 History Metoprolol Tartrate [Lopressor] 37.5 mg PO BID 06/01/23 06/01/23 History Multivit-Min/FA/Lycopen/Lutein 1 tab PO DAILY 06/01/23 06/01/23 History [Centrum Silver Tablet] Omeprazole [PriLOSEC] 20 mg PO DAILY 06/01/23 06/01/23 History Oxybutynin ER [Ditropan XL] 15 mg PO DAILY 06/01/23 06/01/23 History Pantoprazole Sodium [Protonix] 20 mg PO DAILY 06/01/23 06/01/23 History Potassium Chloride [Klor-Con M20] 20 meq PO DAILY 06/01/23 06/01/23 History amLODIPine [Norvasc] 5 mg PO DAILY 06/01/23 06/01/23 History Allergies Allergy/AdvReac Type Severity Reaction Status Date / Time cephalexin monohydrate Allergy Itching. Verified 06/01/23 09:17 [From Keflex] SWELLING Physical Exam Vitals: Vital Signs Temp Pulse Pulse Resp BP Pulse Ox 06/03/23 09:54 95 06/03/23 06:56 98.4 F 62 17 103/67 98 06/03/23 01:01 97.5 F L 58 L 18 97/60 99 06/02/23 19:30 58 L 06/02/23 18:56 97.9 F 63 18 110/71 97 06/02/23 13:39 97.6 F 57 L 16 127/79 98 Intake and Output 06/02/23 06/03/23 06/03/23 22:59 06:59 14:59 Output Total 900 800 Balance -900 -800 Output: Urine 900 800 Other: Voiding Method External Catheter Patient is awake, comfortable, no acute distress Examination of the heart S1 and S2 Examination of the lungs bilateral breath sounds are heard Abdomen is soft with tenderness in right upper quadrant Examination of lower extremities shows no significant edema CLINICAL RESOURCE MANAGER exam grossly intact Results - Lab Results Most recent lab results Calcium 8.0 mg/dL (8.4-10.2) L 06/03/23 07:15 06/02/23 07:10 06/03/23 07:15 Assessment and Plan Assessment: 1. Acute kidney injury associated with volume depletion and possible component of ATN. Currently nonoliguric. Patient has an external catheter. Rule out urine retention. Creatinine has improved to 1.3. Patient has had previous episodes of acute kidney injury with serum creatinine decreasing to 0.8 mg/dL on 02/02/2022 2. Volume depletion status post IV fluids 3. Hyponatremia, hypovolemic, worsened with use of hypotonic fluid. Check urine sodium and urine osmolality 4. Cholelithiasis 5. Mild hyperkalemia associated with acute kidney injury and possible urine retention. High blood sugars also contributing to hyperkalemia. Patient was maintained on potassium supplementation and Cozaar prior to admission. Plan: Change IV fluids to bicarb drip with base of half-normal saline. sodium chloride tab x1 Check urine osmolality and urine sodium Repeat sodium this evening Thank you for the consultation. We will continue to follow the patient with you during her hospitalization
--- NOTE | 2023-06-03 13:07 | P.PN ---
Subjective Progress Note Date: 06/03/23 CHIEF COMPLAINT: Abdominal pain HISTORY OF PRESENT ILLNESS: Patient continues to report right-sided abdominal pain. She was able to eat her meal this morning. She reports she had been having difficulty eating at home due to abdominal pain. She denies any nausea vomiting. She does complain of constipation and reports several days since her last bowel movement. She is having flatus. Gallbladder ultrasound shows gallstone without ultrasound evidence for acute cholecystitis. Afebrile. Sodium 122 potassium is 5.3 creatinine 1.38 glucose 313. Nephrology following patient for hyponatremia PHYSICAL EXAM: VITAL SIGNS: Reviewed. GENERAL: Well-developed in no acute distress. HEENT: No sclera icterus. Extraocular movements grossly intact. Moist buccal mucosa. Head is atraumatic, normocephalic. ABDOMEN: Soft. Nondistended. Right upper quadrant and right sided tenderness with palpation NEUROLOGIC: Alert and oriented. Cranial nerves II through XII grossly intact. ASSESSMENT: 1. Right upper quadrant and right sided abdominal pain 2. Cholelithiasis 3. Distal esophageal wall thickening correlate for esophagitis noted on computed tomography scan 4. History of appendectomy PLAN: -HIDA scan without EF ordered to check for patent cystic duct -Continue full liquid diet -Continue supportive care -Continue Protonix -Further recommendations forthcoming per surgeon Physician Clinical Program Coordinator note has been reviewed by physician. Signing provider agrees with the documented findings, assessment, and plan of care. I have personally seen and examined the patient, reviewed the PLEATER HAND /PAs history, exam and MDM and agree with the assessment and plan as written. Based on total visit time, I have performed more than 50% of the visit. As above: Patient with right-sided pain. Ultrasound does show a small gallstone. CAT scan does not look suspicious for cholecystitis nor does the ultrasound. If cystic duct is patent would plan observation of the gallbladder at this time. Await findings of HIDA scan. Objective - Vital Signs Vital signs: Vital Signs Temp 98.4 F 06/03/23 06:56 Pulse 62 06/03/23 06:56 Resp 17 06/03/23 06:56 BP 103/67 06/03/23 06:56 Pulse Ox 95 06/03/23 09:54 FiO2 Intake & Output 06/02/23 06/03/23 06/03/23 18:59 06:59 18:59 Output Total 900 800 Balance -900 -800 Output: Urine 900 800 Other: Voiding Method External Catheter - Labs CBC & Chem 7: 06/02/23 07:10 06/03/23 07:15 Labs: Abnormal Lab Results - Last 24 Hours (Table) 06/02/23 06/02/23 06/02/23 Range/Units 07:10 11:31 16:35 Sodium (137-145) mmol/L Potassium (3.5-5.1) mmol/L Chloride (98-107) mmol/L Carbon Dioxide (22-30) mmol/L BUN (7-17) mg/dL Creatinine (0.52-1.04) mg/dL Glucose (74-99) mg/dL POC Glucose (mg/dL) 373 H 287 H (70-110) mg/dL Calcium (8.4-10.2) mg/dL Procalcitonin 0.15 H (0.02-0.09) ng/mL Ur Random Sodium (40-220) mmol/L 06/02/23 06/03/23 06/03/23 Range/Units 20:03 05:30 06:28 Sodium (137-145) mmol/L Potassium (3.5-5.1) mmol/L Chloride (98-107) mmol/L Carbon Dioxide (22-30) mmol/L BUN (7-17) mg/dL Creatinine (0.52-1.04) mg/dL Glucose (74-99) mg/dL POC Glucose (mg/dL) 206 H 378 H (70-110) mg/dL Calcium (8.4-10.2) mg/dL Procalcitonin (0.02-0.09) ng/mL Ur Random Sodium <20 L (40-220) mmol/L 06/03/23 Range/Units 07:15 Sodium 122 L (137-145) mmol/L Potassium 5.3 H (3.5-5.1) mmol/L Chloride 92 L (98-107) mmol/L Carbon Dioxide 20 L (22-30) mmol/L BUN 47 H (7-17) mg/dL Creatinine 1.38 H (0.52-1.04) mg/dL Glucose 349 H (74-99) mg/dL POC Glucose (mg/dL) (70-110) mg/dL Calcium 8.0 L (8.4-10.2) mg/dL Procalcitonin (0.02-0.09) ng/mL Ur Random Sodium (40-220) mmol/L Microbiology - Last 24 Hours (Table) 06/01/23 00:16 Urine Culture - Preliminary Urine,Voided Gram Neg Bacilli
[2023-06-03] MEDS: NYSTATIN 100,000 UNIT/GM POWD 15 GM TOPICAL SCH ×2 (17:29→22:58)
--- NOTE | 2023-06-03 18:07 | NM ---
EXAMINATION TYPE: NM hepatobiliary wo EF DATE OF EXAM: 06/03/2023 5:59 PM COMPARISON: CT abdomen pelvis most recent from 06/01/2023, ultrasound 06/02/2023. CLINICAL INDICATION:Female, 73 years old with history of RUQ abdominal pain, gallstones; TECHNIQUE: The patient was given 4.76 mCi of Technetium 99m-Mebrofenin as a radiotracer and multiple scintigraphic images were obtained of the abdomen. Gallbladder function was also assessed after the administration of 4 mL of Sincalide (cholecystokinin) and additional scintigraphic images were obtain ed of the abdomen. A region of interest was drawn over the gallbladder and a timing activity curve wa s generated. The gallbladder ejection fraction was calculated. FINDINGS: Normal uptake of radiotracer was identified within the liver with excretion into the hepatic and comm on biliary ducts within 120 seconds. There was normal progressive washout of the liver over the cours e of the study. Radiotracer uptake within the gallbladder at 10 minutes. Radiotracer in the small bow el centrally visualized IMPRESSION: Normal filling of the gallbladder. No radiotracer is seen within the small bowel on this exam and cou ld be due to patient fasting status in technique. If there is concern for common bile duct obstructio n consider MRI MRCP.
[2023-06-03 18:09] LABS: Glucose,Whole Blood 139 mg/dL (70-110)
[2023-06-03] MEDS: MORPHINE SULFATE 4 MG/ML SYRINGE IV PRN (18:50)
[2023-06-03 19:30] LABS: Glucose,Whole Blood 177 mg/dL (70-110)
[2023-06-03] MEDS: INSULIN DETEMIR (LEVEMIR) 100 UNIT/ML SYR SQ SCH (20:38)
[2023-06-03] MEDS: traZODone HCL 50 MG TAB PO SCH (20:38)
[2023-06-03] MEDS: ATORVASTATIN 40 MG TAB PO SCH (20:38)
[2023-06-04] MEDS: MORPHINE SULFATE 4 MG/ML SYRINGE IV PRN ×4 (01:24→22:07)
--- NOTE | 2023-06-04 02:14 | PN ---
PROGRESS NOTE DATE OF SERVICE: 06/03/2023 SUBJECTIVE: This is a 73-year-old woman who was admitted with chest pain and UTI. Multiple symptoms, nausea, vomiting, abdominal discomfort also. No fever, no cough. The patient appears to be slowly improving at this time. OBJECTIVE: VITAL SIGNS: Pulse is 62, blood pressure 106/69, and respirations 17. CHEST: Clear to auscultation. CARDIOVASCULAR: S1, S2. ABDOMEN: Soft, nontender. NERVOUS SYSTEM: No focal deficits. LABORATORY DATA: Reviewed. ASSESSMENT: 1. Abdominal pain, acute UTI present on admission. 2. Acute kidney injury. 3. Hyponatremia. 4. Metabolic acidosis. 5. Chronic constipation. 6. Multiple complex medical issues. RECOMMENDATIONS: Recommended to continue current medications, continue symptomatic treatment. I would recommend empiric antibiotics and closely follow and follow the cultures. Repeat labs. Increase ambulation. Closely follow with Nephrology. Guarded prognosis. Further recommendations to follow. MMODL / IJN: [id number] /
[2023-06-04] MEDS: SODIUM CHLORIDE 0.45% 1,000 ML with SODIUM BICARB (1 MEQ/ML) 150 ML IV SCH ×2 (02:28)
[2023-06-04] MEDS: HYDROcodone/APAP 5-325MG 1 EACH TAB PO PRN ×3 (03:08→17:24)
[2023-06-04 06:07] LABS: Glucose,Whole Blood 201 mg/dL (70-110)
[2023-06-04] MEDS: INSULIN ASPART (NovoLOG) 100 UNIT/ML VIAL SQ SCH ×4 (06:21→22:06)
[2023-06-04] MEDS: PANTOPRAZOLE 40 MG TABLET PO SCH (06:21)
[2023-06-04] MEDS: NON FORMULARY DRUG (Mirabegron [Myrbetriq] 25 MG Tablet) PO SCH (09:56)
[2023-06-04] MEDS: FERROUS SULFATE 325 MG TAB PO SCH (09:57)
[2023-06-04] MEDS: FOLIC ACID 1 MG TAB PO SCH (09:57)
[2023-06-04] MEDS: allopurinoL 100 MG TAB PO SCH (09:57)
[2023-06-04] MEDS: DULoxetine HCL 60 MG CAPSULE.DR PO SCH ×2 (09:57→22:06)
[2023-06-04] MEDS: METOPROLOL TARTRATE 12.5 MG TAB PO SCH ×2 (09:57→22:06)
[2023-06-04] MEDS: MULTIVITAMINS, THERA 1 EACH TAB PO SCH (09:57)
[2023-06-04] MEDS: amLODIPine 5 MG TAB PO SCH (09:57)
[2023-06-04] MEDS: THIAMINE 100 MG TAB PO SCH (09:57)
[2023-06-04] MEDS: ASPIRIN 81 MG PO SCH (09:57)
[2023-06-04] MEDS: ARIPiprazole 10 MG TAB PO SCH (09:58)
[2023-06-04] MEDS: OXYBUTYNIN 15 MG TAB.ER.24 PO SCH (09:59)
[2023-06-04] MEDS: NYSTATIN 100,000 UNIT/GM POWD 15 GM TOPICAL SCH ×3 (09:59→22:07)
[2023-06-04] MEDS ORDERED: COSYNTROPIN 0.25 MG VIAL IVP ONE (10:19)
--- NOTE | 2023-06-04 10:21 | P.PN ---
Subjective Patient is seen in follow-up for acute kidney injury and hyponatremia. Creatinine 1.38 yesterday and sodium level up to 127. Maintained on bicarb drip. Oral intake just fair. She is on fluid restriction. No vomiting or diarrhea. Vital signs are stable. General: No acute distress. HEENT: Head exam is unremarkable. LUNGS: No audible rhonchi or wheezes. HEART: Rate and Rhythm are regular. ABDOMEN: Nontender. EXTREMITITES: 1+ edema. Objective - Vital Signs Vital signs: Vital Signs Temp 96.9 F L 06/04/23 07:34 Pulse 63 06/04/23 07:34 Resp 18 06/04/23 07:34 BP 112/61 06/04/23 07:34 Pulse Ox 99 06/04/23 07:34 FiO2 Intake & Output 06/03/23 06/04/23 06/04/23 18:59 06:59 18:59 Output Total 800 400 Balance -800 -400 Output: Urine 800 400 Other: Voiding Method External Catheter - Labs CBC & Chem 7: 06/02/23 07:10 06/03/23 18:36 Labs: Abnormal Lab Results - Last 24 Hours (Table) 06/03/23 06/03/23 06/03/23 Range/Units 05:30 11:57 18:07 Sodium (137-145) mmol/L POC Glucose (mg/dL) 313 H 139 H (70-110) mg/dL Ur Random Sodium <20 L (40-220) mmol/L 06/03/23 06/03/23 06/04/23 Range/Units 18:36 19:24 06:06 Sodium 127 L (137-145) mmol/L POC Glucose (mg/dL) 177 H 201 H (70-110) mg/dL Ur Random Sodium (40-220) mmol/L Microbiology - Last 24 Hours (Table) 06/01/23 00:16 Urine Culture - Final Urine,Voided Klebsiella pneumoniae Escherichia coli Assessment and Plan Plan: Assessment: 1. Acute kidney injury secondary to vasomotor nephropathy from hypovolemia. Creatinine peaked at 2.06 this admission and was down to 1.38 as of yesterday. 2. Hypovolemic hyponatremia with component of poor solute intake improved with IV hydration. Urine sodium less than 20 and urine osmolality 179. Cortisol level on the lower end at 5. 3. Hyperkalemia secondary to acute kidney injury, acidosis and losartan. Also component of hyperglycemia. Questionable adrenal insufficiency. 4. Metabolic acidosis secondary to acute kidney injury. 5. Benign hypertension. Controlled. 6. Diabetes mellitus. 7. E. coli and Klebsiella UTI on antibiotics. Plan: Hep-Lock IV fluids. Maintain fluid restriction. Blood sugar control. Encourage oral intake. Check cosyntropin stimulation test. Hold amlodipine for systolic blood pressure less than 120. Morning labs pending.
[2023-06-04 11:02] LABS: Basophils # (A) 0.02 X 10*3/uL (0.00-0.10); Basophils % (A) 0.2 %; Eosinophils # (A) 0.29 X 10*3/uL (0.04-0.35); Eosinophils % (A) 3.3 %; HCT 33.1 % (37.2-46.3); Lymphocytes # (A) 1.21 X 10*3/uL (0.90-5.00); Lymphocytes % (A) 13.7 %; MCH 29.8 pg (27.0-32.0); MCHC 33.2 d/dL (32.0-37.0); MCV 89.7 FL (80.0-97.0); Mean Platelet Volume 11.1 FL (9.5-12.2); Monocytes # (A) 0.71 X 10*3/uL (0.20-1.00); NRBC Per 100 WBC 0 X 10*3/uL (0.00-0.01); Neutrophils # (A) 6.51 X 10*3/uL (1.80-7.70); Neutrophils % (A) 73.7 %; Platelet Count 184 X 10*3/uL (140-440); RBC 3.69 X 10*6/uL (4.10-5.20); RDW 13.2 % (11.5-14.5); WBC 8.84 X 10*3/uL (4.50-10.00)
--- NOTE | 2023-06-04 11:04 | P.PN ---
Subjective Progress Note Date: 06/04/23 CHIEF COMPLAINT: Abdominal pain HISTORY OF PRESENT ILLNESS: Patient continues to report right-sided abdominal pain. She denies any nausea or vomiting. She had been tolerating diet. Patient having flatus. Denies any bowel movement for about 4 days. Gallbladder ultrasound shows gallstone without ultrasound evidence for acute cholecystitis. Patient did have a low-grade temp last night of 100.2. Labs for today are pending. HIDA scan reports normal filling of the gallbladder. PHYSICAL EXAM: VITAL SIGNS: Reviewed. GENERAL: Well-developed in no acute distress. HEENT: No sclera icterus. Extraocular movements grossly intact. Moist buccal mucosa. Head is atraumatic, normocephalic. ABDOMEN: Soft. Nondistended. Right upper quadrant and right sided tenderness with palpation NEUROLOGIC: Alert and oriented. Cranial nerves II through XII grossly intact. ASSESSMENT: 1. Right upper quadrant and right sided abdominal pain 2. Cholelithiasis 3. Distal esophageal wall thickening correlate for esophagitis noted on computed tomography scan 4. History of appendectomy PLAN: -Continue full liquid diet -Continue supportive care -Continue Protonix -Further recommendations forthcoming per surgeon Physician Diesel Lube Tech note has been reviewed by physician. Signing provider agrees with the documented findings, assessment, and plan of care. I have personally seen and examined the patient, reviewed the PILE HEADER /PAs history, exam and MDM and agree with the assessment and plan as written. Based on total visit time, I have performed more than 50% of the visit. As above: Patient states she is still having pain right lower quadrant. On exam she is most tender in the left lower quadrant although mild in nature. Gallbladder workup thus far only reveals a single small gallstone. I'm not con vinced this has anything to do with her pain. Discussed with the patient. She states she feels bloated and has not had a bowel movement in 6 days. Begin lactulose and will order flatplate at this time. We'll follow. Objective - Vital Signs Vital signs: Vital Signs Temp 96.9 F L 06/04/23 07:34 Pulse 63 06/04/23 07:34 Resp 18 06/04/23 07:34 BP 112/61 06/04/23 07:34 Pulse Ox 99 06/04/23 07:34 FiO2 Intake & Output 06/03/23 06/04/23 06/04/23 18:59 06:59 18:59 Output Total 800 400 Balance -800 -400 Output: Urine 800 400 Other: Voiding Method External Catheter - Labs CBC & Chem 7: 06/04/23 06:37 06/04/23 06:37 Labs: Abnormal Lab Results - Last 24 Hours (Table) 06/03/23 06/03/23 06/03/23 Range/Units 05:30 11:57 18:07 Sodium (137-145) mmol/L POC Glucose (mg/dL) 313 H 139 H (70-110) mg/dL Ur Random Sodium <20 L (40-220) mmol/L 06/03/23 06/03/23 06/04/23 Range/Units 18:36 19:24 06:06 Sodium 127 L (137-145) mmol/L POC Glucose (mg/dL) 177 H 201 H (70-110) mg/dL Ur Random Sodium (40-220) mmol/L Microbiology - Last 24 Hours (Table) 06/01/23 00:16 Urine Culture - Final Urine,Voided Klebsiella pneumoniae Escherichia coli
[2023-06-04 11:27] LABS: Glucose,Whole Blood 373 mg/dL (70-110)
[2023-06-04 11:31] LABS: ALT 19 U/L (8-44); AST 14 U/L (13-35); Albumin 3.3 d/dL (3.8-4.9); Albumin/Globulin Ratio 1.74 Ratio (1.60-3.17); Alkaline Phosphatase 112 U/L (41-126); BUN/Creat Ratio 22.14 Ratio (12.00-20.00); Calcium 8.3 mg/dL (8.7-10.3); Carbon Dioxide 33.6 mmol/L (21.6-31.8); Chloride 96 mmol/L (96-109); Globulin 1.9 d/dL (1.6-3.3); Glucose 178 mg/dL (70-110); Potassium 5.2 mmol/L (3.5-5.5); Sodium 132 mmol/L (135-145); Total Bilirubin 0.2 mg/dL (0.3-1.2); Total Protein 5.2 d/dL (6.2-8.2)
--- NOTE | 2023-06-04 12:48 | P.PN ---
Subjective This is a 73-year-old patient, follows with visiting physicians Dr. Waller. At her baseline patient does use a cane sometimes a walker. Presents with 5 days of nausea vomiting. Unable to keep anything down. Right lower quadrant pain. Normally has a bowel movement once a week. No BM for last 2 days. Chills. Patient is hard of hearing. Tired rundown. Also having some intermittent chest pain. Patient is incontinent of urine. June 02: No further nausea vomiting since yesterday. Continues to have right lower quadrant pain. No bowel movement. On clear liquid diet. Computed tomography scan of the abdomen showed some gallstones. Otherwise unremarkable. Gallbladder ultrasound: Small mobile stones. No pericholecystic fluid or abnor mal wall thickening. Suspect underlying mild colitis. Worsening renal function. Nephrology consulted. Some decrease in bicarbonate. We will change to sodium bicarbonate drip. No renal offensive drugs. Possibly right-sided low grade colitis. Strict I's and O's. 06/04/2023 pATIENT IS STILL COMPLAINING OF FROM SIGNIFICANT rIGHT LOWER QUADRANT ABDOMINAL PAIN AND TENDERNESS. sHE IS TOLERATING THE TOTAL LIQUID. nO NAUSEA VOMITING. She says her last bowel movement wasAbout 4-6 days ago. Today she had low-grade fever of 100.2. She has leukocytosis 16,000 came down to 8.8. She was on Levaquin started 2 days ago. We will add IV Flagyl. She remains onIV fluids. Lasix and Cozaar on hold. She is on aspirin 81 mg daily Objective - Vital Signs Vital signs: Vital Signs Temp 96.9 F L 06/04/23 07:34 Pulse 63 06/04/23 07:34 Resp 18 06/04/23 07:34 BP 112/61 06/04/23 07:34 Pulse Ox 99 06/04/23 07:34 FiO2 Intake & Output 06/03/23 06/04/23 06/04/23 18:59 06:59 18:59 Output Total 800 400 Balance -800 -400 Output: Urine 800 400 Other: Voiding Method External Catheter - Exam GENERAL: The patient is alert and oriented x3, not in any acute distress. Well developed, well nourished. HEENT: Pupils are round and equally reacting to light. EOMI. No scleral icterus. No conjunctival pallor. Normocephalic, atraumatic. No pharyngeal erythema. No thyromegaly. CARDIOVASCULAR: S1 and S2 present. No murmurs, rubs, or gallops. PULMONARY: Chest is clear to auscultation, no wheezing , no crackles. ABDOMEN: Soft, RLQ TENDERNESSr, nondistended, normoactive bowel sounds. No palpable organomegaly. MUSCULOSKELETAL: No joint swelling or deformity. EXTREMITIES: No cyanosis, clubbing, or pedal edema. NEUROLOGICAL: Gross neurological examination did not reveal any focal deficits. SKIN: No rashes. no petechiae. - Labs CBC & Chem 7: 06/04/23 06:37 06/04/23 06:37 Labs: Abnormal Lab Results - Last 24 Hours (Table) 06/03/23 06/03/23 06/03/23 Range/Units 18:07 18:36 19:24 RBC (4.10-5.20) X 10*6/uL Hgb (12.0-15.0) d/dL Hct (37.2-46.3) % Sodium 127 L (137-145) mmol/L Carbon Dioxide (21.6-31.8) mmol/L Anion Gap (4.00-12.00) mmol/L BUN (9.0-27.0) mg/dL Est GFR (CKD-EPI) (>=60) BUN/Creatinine Ratio (12.00-20.00) Ratio Glucose (70-110) mg/dL POC Glucose (mg/dL) 139 H 177 H (70-110) mg/dL Calcium (8.7-10.3) mg/dL Total Bilirubin (0.3-1.2) mg/dL Total Protein (6.2-8.2) d/dL Albumin (3.8-4.9) d/dL 06/04/23 06/04/23 06/04/23 Range/Units 06:06 06:37 06:37 RBC 3.69 L (4.10-5.20) X 10*6/uL Hgb 11.0 L (12.0-15.0) d/dL Hct 33.1 L (37.2-46.3) % Sodium 132 L (137-145) mmol/L Carbon Dioxide 33.6 H (21.6-31.8) mmol/L Anion Gap 2.40 L (4.00-12.00) mmol/L BUN 31.0 H (9.0-27.0) mg/dL Est GFR (CKD-EPI) 39 L (>=60) BUN/Creatinine Ratio 22.14 H (12.00-20.00) Ratio Glucose 178 H (70-110) mg/dL POC Glucose (mg/dL) 201 H (70-110) mg/dL Calcium 8.3 L (8.7-10.3) mg/dL Total Bilirubin 0.2 L (0.3-1.2) mg/dL Total Protein 5.2 L (6.2-8.2) d/dL Albumin 3.3 L (3.8-4.9) d/dL 06/04/23 Range/Units 11:26 RBC (4.10-5.20) X 10*6/uL Hgb (12.0-15.0) d/dL Hct (37.2-46.3) % Sodium (137-145) mmol/L Carbon Dioxide (21.6-31.8) mmol/L Anion Gap (4.00-12.00) mmol/L BUN (9.0-27.0) mg/dL Est GFR (CKD-EPI) (>=60) BUN/Creatinine Ratio (12.00-20.00) Ratio Glucose (70-110) mg/dL POC Glucose (mg/dL) 373 H (70-110) mg/dL Calcium (8.7-10.3) mg/dL Total Bilirubin (0.3-1.2) mg/dL Total Protein (6.2-8.2) d/dL Albumin (3.8-4.9) d/dL Microbiology - Last 24 Hours (Table) 06/01/23 00:16 Urine Culture - Final Urine,Voided Klebsiella pneumoniae Escherichia coli Assessment and Plan Assessment: -Acute abdominal pain. . Along with nausea vomiting. Some chills. Elevated white count. Unable to keep anything down. Tenderness in the right lower quadrant.: Possible right-sided low-grade colitis IV antibiotic is ordered. full liquid diet. Being followed by surgery. Computed tomography scan of the abdomen : Nothing acute Gallbladder ultrasound: Small mobile stones. -Acute kidney injury possibly combination of prerenal and ATN. : Worsening IV fluids. Follow renal function Nephrology consulted improved -Hyponatremia, hypovolemia: Worsening Fluid restriction 1500 mL a day. Check serum osmolality, urine sodium Avoid free fluid. -Metabolic acidosis from renal failure: improved -Morbid obesity BMI 49.6 Weight loss measures -Chronice constipation has a bowel movement normally once a day at baseline -Diabetes mellitus type 2 on insulin, uncontrolled with hyperglycemia [patient takes 2 different tests of insulin at home] Follow Accu-Cheks with sliding scale Start Levemir 16 units daily at bedtime. -Depression and anxiety Abilify 10 mg a day. Cymbalta 60 mg twice a day. -Essential hypertension Norvasc Lopressor 25 mg twice a day Hold Cozaar because of renal function -Hyperuricemia Allopurinol 100 mg a day -GERD Protonix 20 mg daily -Chronic urinary stress incontinence Oxybutynin 15 mg a day, Myrbetriq 25 mg a day -Chronic arthritis with pain [place] 10 1 tablet every 6 when necessary -Chronic hard of hearing -Chronic medical debility. At her baseline uses a walker -Legal guardian: Marianela Syed
[2023-06-04] MEDS: metroNIDAZOLE-NS PMX 500 MG in SALINE 1 100ML.BAG IVPB SCH (16:01)
[2023-06-04 16:37] LABS: Glucose,Whole Blood 159 mg/dL (70-110)
[2023-06-04 19:19] LABS: Glucose,Whole Blood 269 mg/dL (70-110)
--- NOTE | 2023-06-04 20:00 | XR ---
EXAMINATION TYPE: XR abdomen 2V DATE OF EXAM: 06/04/2023 5:09 PM CLINICAL INDICATION:Female, 73 years old with history of constipation; [facility] COMPARISON: CT abdomen 06/01/2023 TECHNIQUE: Two views of the abdomen were obtained. FINDINGS: There is residual contrast seen throughout nondistended colon with multiple diverticula not ed. Mild/moderate colonic stool, greatest on the right. No gas dilated loops of small bowel are seen. No free air suggested. Degenerative changes throughout the spine with mild scoliotic curvature. IMPRESSION: Nonspecific, nonobstructive bowel gas pattern. No free air detected. Residual contrast throughout nondistended colon with multiple diverticula noted. Mild/moderate colonic stool, greatest on the right.
[2023-06-04] MEDS: LACTULOSE 20 GM/30 ML CUP PO SCH (22:06)
[2023-06-04] MEDS: traZODone HCL 50 MG TAB PO SCH (22:06)
[2023-06-04] MEDS: ATORVASTATIN 40 MG TAB PO SCH (22:06)
[2023-06-04] MEDS: INSULIN DETEMIR (LEVEMIR) 100 UNIT/ML SYR SQ SCH (22:07)
[2023-06-05] MEDS: metroNIDAZOLE-NS PMX 500 MG in SALINE 1 100ML.BAG IVPB SCH ×3 (00:09→16:18)
[2023-06-05] MEDS: HYDROcodone/APAP 5-325MG 1 EACH TAB PO PRN ×2 (04:17→07:45)
[2023-06-05 05:52] LABS: Glucose,Whole Blood 149 mg/dL (70-110)
[2023-06-05] MEDS: INSULIN ASPART (NovoLOG) 100 UNIT/ML VIAL SQ SCH ×4 (06:25→22:18)
[2023-06-05] MEDS: FOLIC ACID 1 MG TAB PO SCH (07:44)
[2023-06-05] MEDS: THIAMINE 100 MG TAB PO SCH (07:44)
[2023-06-05] MEDS: MULTIVITAMINS, THERA 1 EACH TAB PO SCH (07:44)
[2023-06-05] MEDS: allopurinoL 100 MG TAB PO SCH (07:44)
[2023-06-05] MEDS: ASPIRIN 81 MG PO SCH (07:44)
[2023-06-05] MEDS: OXYBUTYNIN 15 MG TAB.ER.24 PO SCH (07:44)
[2023-06-05] MEDS: DULoxetine HCL 60 MG CAPSULE.DR PO SCH ×2 (07:44→22:18)
[2023-06-05] MEDS: FERROUS SULFATE 325 MG TAB PO SCH (07:44)
[2023-06-05] MEDS: PANTOPRAZOLE 40 MG TABLET PO SCH (07:44)
[2023-06-05] MEDS: amLODIPine 5 MG TAB PO SCH (07:45)
[2023-06-05] MEDS: ARIPiprazole 10 MG TAB PO SCH (07:45)
[2023-06-05] MEDS: METOPROLOL TARTRATE 12.5 MG TAB PO SCH ×2 (07:46→22:20)
[2023-06-05] MEDS: LACTULOSE 20 GM/30 ML CUP PO SCH ×2 (07:52→22:20)
--- NOTE | 2023-06-05 09:58 | P.PN ---
Subjective Progress Note Date: 06/05/23 Principal diagnosis: 73-year-old female with right-sided abdominal pain, UTI patient resting quietly in bed, patient did have a bowel movement earlier this morning denies any fever or chills denies any nausea or vomiting. Currently tolerating a full liquid diet. Patient continues to note some mild right-sided abdominal discomfort. Recent abdominal x-ray demonstrates nonspecific, nonobstructive gas pattern. Vitals are stable. Objective - Vital Signs Vital signs: Vital Signs Temp 97.8 F 06/05/23 07:33 Pulse 62 06/05/23 07:43 Resp 16 06/05/23 07:33 BP 106/58 06/05/23 07:33 Pulse Ox 98 06/05/23 08:47 FiO2 Intake & Output 06/04/23 06/05/23 06/05/23 18:59 06:59 18:59 Other: Voiding Method External Catheter - Constitutional Constitutional Comment(s): no acute distress - EENT EENT Comment(s): sclerae clear, nonicteric - Respiratory Details: nonlabored respirations - Cardiovascular Details: regular rate and rhythm - Gastrointestinal Gastrointestinal Comment(s): protuberant, soft, mildly tender mid left side, no peritoneal signs - Labs CBC & Chem 7: 06/04/23 06:37 06/04/23 06:37 Labs: Abnormal Lab Results - Last 24 Hours (Table) 06/04/23 06/04/23 06/04/23 Range/Units 06:37 06:37 11:26 RBC 3.69 L (4.10-5.20) X 10*6/uL Hgb 11.0 L (12.0-15.0) d/dL Hct 33.1 L (37.2-46.3) % Sodium 132 L (135-145) mmol/L Carbon Dioxide 33.6 H (21.6-31.8) mmol/L Anion Gap 2.40 L (4.00-12.00) mmol/L BUN 31.0 H (9.0-27.0) mg/dL Est GFR (CKD-EPI) 39 L (>=60) BUN/Creatinine Ratio 22.14 H (12.00-20.00) Ratio Glucose 178 H (70-110) mg/dL POC Glucose (mg/dL) 373 H (70-110) mg/dL Calcium 8.3 L (8.7-10.3) mg/dL Total Bilirubin 0.2 L (0.3-1.2) mg/dL Total Protein 5.2 L (6.2-8.2) d/dL Albumin 3.3 L (3.8-4.9) d/dL 06/04/23 06/04/23 06/05/23 Range/Units 16:36 19:18 05:50 RBC (4.10-5.20) X 10*6/uL Hgb (12.0-15.0) d/dL Hct (37.2-46.3) % Sodium (135-145) mmol/L Carbon Dioxide (21.6-31.8) mmol/L Anion Gap (4.00-12.00) mmol/L BUN (9.0-27.0) mg/dL Est GFR (CKD-EPI) (>=60) BUN/Creatinine Ratio (12.00-20.00) Ratio Glucose (70-110) mg/dL POC Glucose (mg/dL) 159 H 269 H 149 H (70-110) mg/dL Calcium (8.7-10.3) mg/dL Total Bilirubin (0.3-1.2) mg/dL Total Protein (6.2-8.2) d/dL Albumin (3.8-4.9) d/dL - Imaging and Cardiology Abdominal x-ray: report reviewed CT scan - abdomen: report reviewed US - abdomen: report reviewed Assessment and Plan Assessment: 73-year-old female complaining of right-sided abdominal pain and some chest heaviness. Cholelithiasis present but no evidence of cholecystitis per ultrasound or HIDA Nonsurgical abdomen, your medical care CT notes questionable changes in the distal esophagus, consider EGD if not performed within past year. Time with Patient: Less than 30
[2023-06-05] MEDS: NON FORMULARY DRUG (Mirabegron [Myrbetriq] 25 MG Tablet) PO SCH (10:03)
[2023-06-05 10:29] LABS: BUN/Creat Ratio 18.36 Ratio (12.00-20.00); Blood Urea Nitrogen 25.7 mg/dL (9.0-27.0); Calcium 8.2 mg/dL (8.7-10.3); Carbon Dioxide 26.4 mmol/L (21.6-31.8); Chloride 100 mmol/L (96-109); Glucose 133 mg/dL (70-110); Magnesium 2.5 mg/dL (1.5-2.4); Potassium 5.1 mmol/L (3.5-5.5); Sodium 133 mmol/L (135-145)
[2023-06-05] MEDS: NYSTATIN 100,000 UNIT/GM POWD 15 GM TOPICAL SCH ×3 (10:29→22:19)
[2023-06-05 11:30] LABS: Glucose,Whole Blood 367 mg/dL (70-110)
--- NOTE | 2023-06-05 12:06 | P.PN ---
Subjective This is a 73-year-old patient, follows with visiting physicians Dr. Waller. At her baseline patient does use a cane sometimes a walker. Presents with 5 days of nausea vomiting. Unable to keep anything down. Right lower quadrant pain. Normally has a bowel movement once a week. No BM for last 2 days. Chills. Patient is hard of hearing. Tired rundown. Also having some intermittent chest pain. Patient is incontinent of urine. June 02: No further nausea vomiting since yesterday. Continues to have right lower quadrant pain. No bowel movement. On clear liquid diet. Computed tomography scan of the abdomen showed some gallstones. Otherwise unremarkable. Gallbladder ultrasound: Small mobile stones. No pericholecystic fluid or abnor mal wall thickening. Suspect underlying mild colitis. Worsening renal function. Nephrology consulted. Some decrease in bicarbonate. We will change to sodium bicarbonate drip. No renal offensive drugs. Possibly right-sided low grade colitis. Strict I's and O's. 06/04/2023 pATIENT IS STILL COMPLAINING OF FROM SIGNIFICANT rIGHT LOWER QUADRANT ABDOMINAL PAIN AND TENDERNESS. sHE IS TOLERATING THE TOTAL LIQUID. nO NAUSEA VOMITING. She says her last bowel movement wasAbout 4-6 days ago. Today she had low-grade fever of 100.2. She has leukocytosis 16,000 came down to 8.8. She was on Levaquin started 2 days ago. We will add IV Flagyl. She remains onIV fluids. Lasix and Cozaar on hold. She is on aspirin 81 mg daily 06/05/2023 Patient still complaining of from right lower quadrant abdominal pain and tenderness, looks better today. KUB abdominal x-ray yesterday showing evidence of mild to moderate stool more on the right side. She had large liquid bowel movement this morning after she was started on lactulose 30 g twice daily. Her urine culture is growing Klebsiella and E. coli both sensitive to Cipro. Currently patient kept on Levaquin and Flagyl. Patient also noted a 75 mL/h. No indication for surgical intervention now for surgery team. Also she has right-sided chest pain and tenderness most likely musculoskeletal. Already evaluated by acetaldehyde converter operator and they signed off the case. Patient states pain uncontrolled and requires more pain medication, increased her [place] 10 mg-325 Objective - Vital Signs Vital signs: Vital Signs Temp 97.8 F 06/05/23 07:33 Pulse 62 06/05/23 07:43 Resp 16 06/05/23 07:33 BP 106/58 06/05/23 07:33 Pulse Ox 98 06/05/23 08:47 FiO2 Intake & Output 06/04/23 06/05/23 06/05/23 18:59 06:59 18:59 Other: Voiding Method External Catheter - Exam GENERAL: The patient is alert and oriented x3, not in any acute distress. Well developed, well nourished. HEENT: Pupils are round and equally reacting to light. EOMI. No scleral icterus. No conjunctival pallor. Normocephalic, atraumatic. No pharyngeal erythema. No thyromegaly. CARDIOVASCULAR: S1 and S2 present. No murmurs, rubs, or gallops. PULMONARY: Chest is clear to auscultation, no wheezing , no crackles. ABDOMEN: Soft, RLQ TENDERNESSr, nondistended, normoactive bowel sounds. No palpable organomegaly. MUSCULOSKELETAL: No joint swelling or deformity. EXTREMITIES: No cyanosis, clubbing, or pedal edema. NEUROLOGICAL: Gross neurological examination did not reveal any focal deficits. SKIN: No rashes. no petechiae. - Labs CBC & Chem 7: 06/04/23 06:37 06/05/23 06:10 Labs: Abnormal Lab Results - Last 24 Hours (Table) 06/04/23 06/04/23 06/05/23 Range/Units 16:36 19:18 05:50 Sodium (135-145) mmol/L Est GFR (CKD-EPI) (>=60) Glucose (70-110) mg/dL POC Glucose (mg/dL) 159 H 269 H 149 H (70-110) mg/dL Calcium (8.7-10.3) mg/dL Magnesium (1.5-2.4) mg/dL TSH (0.350-5.500) UIU/ML 06/05/23 06/05/23 Range/Units 06:10 11:29 Sodium 133 L (135-145) mmol/L Est GFR (CKD-EPI) 39 L (>=60) Glucose 133 H (70-110) mg/dL POC Glucose (mg/dL) 367 H (70-110) mg/dL Calcium 8.2 L (8.7-10.3) mg/dL Magnesium 2.5 H (1.5-2.4) mg/dL TSH 0.202 L (0.350-5.500) UIU/ML Assessment and Plan Assessment: -Acute urinary tract infection secondary to Klebsiella and E. coli Continue with Levaquin -Right lower quadrant abdominal pain and tenderness, improving. Could be acute gastroenteritis Chest mostly secondary to constipation No need for surgical intervention by surgery team Recommend outpatient EGD if not done earlier. On Levaquin and Flagyl -Acute abdominal pain. . Along with nausea vomiting. Some chills. Elevated white count. Unable to keep anything down. Tenderness in the right lower quadrant.: Possible right-sided low-grade colitis IV antibiotic is ordered. full liquid diet. Being followed by surgery. Computed tomography scan of the abdomen : Nothing acute Gallbladder ultrasound: Small mobile stones. -Acute kidney injury possibly combination of prerenal and ATN. : Stable IV fluids. Follow renal function Nephrology consulted improved -Hyponatremia, hypovolemia: Worsening Fluid restriction 1500 mL a day. Check serum osmolality, urine sodium Avoid free fluid. -Constipation On lactulose -Metabolic acidosis from renal failure: improved -Morbid obesity BMI 49.6 Weight loss measures -Chronice constipation has a bowel movement normally once a day at baseline -Diabetes mellitus type 2 on insulin, uncontrolled with hyperglycemia [patient takes 2 different tests of insulin at home] Follow Accu-Cheks with sliding scale Start Levemir 16 units daily at bedtime. -Depression and anxiety Abilify 10 mg a day. Cymbalta 60 mg twice a day. -Essential hypertension Norvasc Lopressor 25 mg twice a day Hold Cozaar because of renal function -Hyperuricemia Allopurinol 100 mg a day -GERD Protonix 20 mg daily -Chronic urinary stress incontinence Oxybutynin 15 mg a day, Myrbetriq 25 mg a day -Chronic arthritis with pain [place] 10 1 tablet every 6 when necessary -Chronic hard of hearing -Chronic medical debility. At her baseline uses a walker -Legal guardian: Marianela Syed
[2023-06-05] MEDS: LEVOFLOXACIN 500MG-D5W PMX 500 MG in DEXTROSE/WATER 1 100ML.BAG IVPB SCH (12:27)
[2023-06-05] MEDS: HYDROcodone/APAP 10-325MG 1 EACH TAB PO PRN ×2 (12:31→18:02)
--- NOTE | 2023-06-05 15:44 | P.PN ---
Subjective Progress Note Date: 06/05/23 Follow-up for acute kidney injury and hyponatremia. Sleepy today. Objective - Vital Signs Vital signs: Vital Signs Temp 98.0 F 06/05/23 14:29 Pulse 64 06/05/23 14:29 Resp 14 06/05/23 14:29 BP 95/64 06/05/23 14:29 Pulse Ox 96 06/05/23 14:29 FiO2 Intake & Output 06/04/23 06/05/23 06/05/23 18:59 06:59 18:59 Other: Voiding Method External Catheter - Exam No acute distress S1-S2 heard Decreased breath sounds Abdomen soft No edema - Labs CBC & Chem 7: 06/04/23 06:37 06/05/23 06:10 Labs: Abnormal Lab Results - Last 24 Hours (Table) 06/04/23 06/04/23 06/05/23 Range/Units 16:36 19:18 05:50 Sodium (135-145) mmol/L Est GFR (CKD-EPI) (>=60) Glucose (70-110) mg/dL POC Glucose (mg/dL) 159 H 269 H 149 H (70-110) mg/dL Calcium (8.7-10.3) mg/dL Magnesium (1.5-2.4) mg/dL TSH (0.350-5.500) UIU/ML 06/05/23 06/05/23 Range/Units 06:10 11:29 Sodium 133 L (135-145) mmol/L Est GFR (CKD-EPI) 39 L (>=60) Glucose 133 H (70-110) mg/dL POC Glucose (mg/dL) 367 H (70-110) mg/dL Calcium 8.2 L (8.7-10.3) mg/dL Magnesium 2.5 H (1.5-2.4) mg/dL TSH 0.202 L (0.350-5.500) UIU/ML Assessment and Plan Assessment: #1 acute kidney injury secondary to prerenal process. -Baseline creatinine 0.8 MG per DL. -Urine analysis hematuria with proteinuria. Leukocyte esterase positive. Urine sodium less than 20 #2 complicated UTI #3 hypovolemic hyponatremia #4 hypertension, essential #5 hyperkalemia secondary to acute kidney injury Plan: #1 creatinine improving and stable. #2 sodiums better. #3 antibiotics as per primary team/infectious disease #4 avoid nephrotoxic agents and hypotensive episodes
[2023-06-05 16:38] LABS: Glucose,Whole Blood 126 mg/dL (70-110)
[2023-06-05 20:13] LABS: Glucose,Whole Blood 291 mg/dL (70-110)
[2023-06-05] MEDS: ATORVASTATIN 40 MG TAB PO SCH (22:17)
[2023-06-05] MEDS: traZODone HCL 50 MG TAB PO SCH ×2 (22:17→22:18)
[2023-06-05] MEDS: INSULIN DETEMIR (LEVEMIR) 100 UNIT/ML SYR SQ SCH (22:18)
[2023-06-05] MEDS: MORPHINE SULFATE 4 MG/ML SYRINGE IV PRN (22:27)
[2023-06-06] MEDS: metroNIDAZOLE-NS PMX 500 MG in SALINE 1 100ML.BAG IVPB SCH ×4 (00:24→23:37)
[2023-06-06] MEDS: HYDROcodone/APAP 10-325MG 1 EACH TAB PO PRN ×3 (04:05→16:16)
[2023-06-06 06:07] LABS: Glucose,Whole Blood 99 mg/dL (70-110)
[2023-06-06] MEDS: INSULIN ASPART (NovoLOG) 100 UNIT/ML VIAL SQ SCH ×4 (06:07→21:29)
[2023-06-06] MEDS: PANTOPRAZOLE 40 MG TABLET PO SCH (06:09)
[2023-06-06] MEDS: LACTULOSE 20 GM/30 ML CUP PO SCH ×2 (07:26→21:30)
[2023-06-06] MEDS: OXYBUTYNIN 15 MG TAB.ER.24 PO SCH (07:26)
[2023-06-06] MEDS: FOLIC ACID 1 MG TAB PO SCH (07:27)
[2023-06-06] MEDS: ASPIRIN 81 MG PO SCH (07:27)
[2023-06-06] MEDS: DULoxetine HCL 60 MG CAPSULE.DR PO SCH ×2 (07:28→21:29)
[2023-06-06] MEDS: METOPROLOL TARTRATE 12.5 MG TAB PO SCH ×2 (07:30→21:29)
[2023-06-06] MEDS: ARIPiprazole 10 MG TAB PO SCH (07:30)
[2023-06-06] MEDS: amLODIPine 5 MG TAB PO SCH (07:30)
[2023-06-06] MEDS: NON FORMULARY DRUG (Mirabegron [Myrbetriq] 25 MG Tablet) PO SCH (07:33)
[2023-06-06] MEDS: allopurinoL 100 MG TAB PO SCH (07:33)
[2023-06-06] MEDS: FERROUS SULFATE 325 MG TAB PO SCH (07:33)
[2023-06-06] MEDS: NYSTATIN 100,000 UNIT/GM POWD 15 GM TOPICAL SCH ×3 (07:34→21:31)
[2023-06-06] MEDS: MULTIVITAMINS, THERA 1 EACH TAB PO SCH (07:35)
[2023-06-06] MEDS: THIAMINE 100 MG TAB PO SCH (07:35)
[2023-06-06 09:47] LABS: BUN/Creat Ratio 14.93 Ratio (12.00-20.00); Blood Urea Nitrogen 20.9 mg/dL (9.0-27.0); Glucose 96 mg/dL (70-110)
[2023-06-06 09:48] LABS: Calcium 8.4 mg/dL (8.7-10.3); Carbon Dioxide 25.5 mmol/L (21.6-31.8); Chloride 96 mmol/L (96-109); Sodium 129 mmol/L (135-145); T4, Free (Free Thyroxine) 1.59 ng/dL (0.80-1.80)
[2023-06-06 11:22] LABS: Glucose,Whole Blood 258 mg/dL (70-110)
--- NOTE | 2023-06-06 11:24 | P.PN ---
Subjective This is a 73-year-old patient, follows with visiting physicians Dr. Waller. At her baseline patient does use a cane sometimes a walker. Presents with 5 days of nausea vomiting. Unable to keep anything down. Right lower quadrant pain. Normally has a bowel movement once a week. No BM for last 2 days. Chills. Patient is hard of hearing. Tired rundown. Also having some intermittent chest pain. Patient is incontinent of urine. June 02: No further nausea vomiting since yesterday. Continues to have right lower quadrant pain. No bowel movement. On clear liquid diet. Computed tomography scan of the abdomen showed some gallstones. Otherwise unremarkable. Gallbladder ultrasound: Small mobile stones. No pericholecystic fluid or abnor mal wall thickening. Suspect underlying mild colitis. Worsening renal function. Nephrology consulted. Some decrease in bicarbonate. We will change to sodium bicarbonate drip. No renal offensive drugs. Possibly right-sided low grade colitis. Strict I's and O's. 06/04/2023 pATIENT IS STILL COMPLAINING OF FROM SIGNIFICANT rIGHT LOWER QUADRANT ABDOMINAL PAIN AND TENDERNESS. sHE IS TOLERATING THE TOTAL LIQUID. nO NAUSEA VOMITING. She says her last bowel movement wasAbout 4-6 days ago. Today she had low-grade fever of 100.2. She has leukocytosis 16,000 came down to 8.8. She was on Levaquin started 2 days ago. We will add IV Flagyl. She remains onIV fluids. Lasix and Cozaar on hold. She is on aspirin 81 mg daily 06/05/2023 Patient still complaining of from right lower quadrant abdominal pain and tenderness, looks better today. KUB abdominal x-ray yesterday showing evidence of mild to moderate stool more on the right side. She had large liquid bowel movement this morning after she was started on lactulose 30 g twice daily. Her urine culture is growing Klebsiella and E. coli both sensitive to Cipro. Currently patient kept on Levaquin and Flagyl. Patient also noted a 75 mL/h. No indication for surgical intervention now for surgery team. Also she has right-sided chest pain and tenderness most likely musculoskeletal. Already evaluated by medical affairs manager and they signed off the case. Patient states pain uncontrolled and requires more pain medication, increased her [place] 10 mg-325 06/06/2023 Patient symptoms feels better, she still have some musculoskeletal chest pain and right lower quadrant pain but it looks better, abdomen is very soft 11 on deep palpation. No suprapubic tenderness but patient still complaining of from dysuria, she has external catheter. Arthroscope was stopped and currently she is on Levaquin and Flagyl and she is improving. Informed about the recommendations of his general surgeon to do EGD as an outpatient for thickened esophagus and risks including but not limited to cancer are explained for her and she verbalized understanding and acceptance. She tolerates diet well Objective - Vital Signs Vital signs: Vital Signs Temp 97.9 F 06/06/23 07:30 Pulse 59 L 06/06/23 07:30 Resp 16 06/06/23 07:30 BP 146/78 06/06/23 07:30 Pulse Ox 100 06/06/23 07:30 FiO2 - Exam GENERAL: The patient is alert and oriented x3, not in any acute distress. Well developed, well nourished. HEENT: Pupils are round and equally reacting to light. EOMI. No scleral icterus. No conjunctival pallor. Normocephalic, atraumatic. No pharyngeal erythema. No thyromegaly. CARDIOVASCULAR: S1 and S2 present. No murmurs, rubs, or gallops. PULMONARY: Chest is clear to auscultation, no wheezing , no crackles. ABDOMEN: Soft, RLQ TENDERNESSr, nondistended, normoactive bowel sounds. No palpable organomegaly. MUSCULOSKELETAL: No joint swelling or deformity. EXTREMITIES: No cyanosis, clubbing, or pedal edema. NEUROLOGICAL: Gross neurological examination did not reveal any focal deficits. SKIN: No rashes. no petechiae. - Labs CBC & Chem 7: 06/04/23 06:37 06/06/23 05:22 Labs: Abnormal Lab Results - Last 24 Hours (Table) 06/05/23 06/05/23 06/05/23 Range/Units 06:10 11:29 16:36 Sodium 133 L (135-145) mmol/L Est GFR (CKD-EPI) 39 L (>=60) Glucose 133 H (70-110) mg/dL POC Glucose (mg/dL) 367 H 126 H (70-110) mg/dL Calcium 8.2 L (8.7-10.3) mg/dL Magnesium 2.5 H (1.5-2.4) mg/dL TSH 0.202 L (0.350-5.500) UIU/ML 06/05/23 06/06/23 Range/Units 20:12 05:22 Sodium 129 L (135-145) mmol/L Est GFR (CKD-EPI) 39 L (>=60) Glucose (70-110) mg/dL POC Glucose (mg/dL) 291 H (70-110) mg/dL Calcium 8.4 L (8.7-10.3) mg/dL Magnesium (1.5-2.4) mg/dL TSH 0.245 L (0.350-5.500) UIU/ML Assessment and Plan Assessment: -Acute urinary tract infection secondary to Klebsiella and E. coli Continue with Levaquin -Right lower quadrant abdominal pain and tenderness, improving. Could be acute gastroenteritis Chest mostly secondary to constipation No need for surgical intervention by surgery team Recommend outpatient EGD if not done earlier. On Levaquin and Flagyl -Acute abdominal pain. . Along with nausea vomiting. Some chills. Elevated white count. Unable to keep anything down. Tenderness in the right lower quadrant.: Possible right-sided low-grade colitis IV antibiotic is ordered. full liquid diet. Being followed by surgery. Computed tomography scan of the abdomen : Nothing acute Gallbladder ultrasound: Small mobile stones. -Acute kidney injury possibly combination of prerenal and ATN. : Stable IV fluids. Follow renal function Nephrology consulted improved -Hyponatremia, hypovolemia: Worsening Fluid restriction 1500 mL a day. Check serum osmolality, urine sodium Avoid free fluid. -Constipation On lactulose -Metabolic acidosis from renal failure: improved -Morbid obesity BMI 49.6 Weight loss measures -Chronice constipation has a bowel movement normally once a day at baseline -Diabetes mellitus type 2 on insulin, uncontrolled with hyperglycemia [patient t jorge 2 different tests of insulin at home] Follow Accu-Cheks with sliding scale Start Levemir 16 units daily at bedtime. -Depression and anxiety Abilify 10 mg a day. Cymbalta 60 mg twice a day. -Essential hypertension Norvasc Lopressor 25 mg twice a day Hold Cozaar because of renal function -Hyperuricemia Allopurinol 100 mg a day -GERD Protonix 20 mg daily -Chronic urinary stress incontinence Oxybutynin 15 mg a day, Myrbetriq 25 mg a day -Chronic arthritis with pain [place] 10 1 tablet every 6 when necessary -Chronic hard of hearing -Chronic medical debility. At her baseline uses a walker -Legal guardian: Marianela Syed
--- NOTE | 2023-06-06 12:41 | P.PN ---
Subjective Progress Note Date: 06/06/23 She is tolerating clear liquid diet but complaining of chest pain and right lower quadrant abdominal pain. She had a bowel movement yesterday and reports no improvement of her abdominal pain. Multiple studies performed. AXR reviewed with non-specific bowel gas pattern. No obstruction. Continue liquid diet. Objective - Vital Signs Vital signs: Vital Signs Temp 97.9 F 06/06/23 07:30 Pulse 59 L 06/06/23 07:30 Resp 16 06/06/23 07:30 BP 146/78 06/06/23 07:30 Pulse Ox 100 06/06/23 07:30 FiO2 - Labs CBC & Chem 7: 06/04/23 06:37 06/06/23 05:22 Labs: Abnormal Lab Results - Last 24 Hours (Table) 06/05/23 06/05/23 06/05/23 Range/Units 06:10 16:36 20:12 Sodium 133 L (135-145) mmol/L Est GFR (CKD-EPI) 39 L (>=60) Glucose 133 H (70-110) mg/dL POC Glucose (mg/dL) 126 H 291 H (70-110) mg/dL Calcium 8.2 L (8.7-10.3) mg/dL Magnesium 2.5 H (1.5-2.4) mg/dL TSH 0.202 L (0.350-5.500) UIU/ML 06/06/23 06/06/23 Range/Units 05:22 11:21 Sodium 129 L (135-145) mmol/L Est GFR (CKD-EPI) 39 L (>=60) Glucose (70-110) mg/dL POC Glucose (mg/dL) 258 H (70-110) mg/dL Calcium 8.4 L (8.7-10.3) mg/dL Magnesium (1.5-2.4) mg/dL TSH 0.245 L (0.350-5.500) UIU/ML
--- NOTE | 2023-06-06 15:38 | P.PN ---
Subjective Progress Note Date: 06/06/23 Follow-up for acute kidney injury and hyponatremia. Sleepy today. Objective - Vital Signs Vital signs: Vital Signs Temp 97.7 F 06/06/23 14:27 Pulse 69 06/06/23 14:27 Resp 18 06/06/23 14:27 BP 109/70 06/06/23 14:27 Pulse Ox 98 06/06/23 14:27 FiO2 Intake & Output 06/05/23 06/06/23 06/06/23 18:59 06:59 18:59 Other: # Bowel Movements 2 - Exam No acute distress S1-S2 heard Decreased breath sounds Abdomen soft No edema - Labs CBC & Chem 7: 06/04/23 06:37 06/06/23 05:22 Labs: Abnormal Lab Results - Last 24 Hours (Table) 06/05/23 06/05/23 06/06/23 Range/Units 16:36 20:12 05:22 Sodium 129 L (135-145) mmol/L Est GFR (CKD-EPI) 39 L (>=60) POC Glucose (mg/dL) 126 H 291 H (70-110) mg/dL Calcium 8.4 L (8.7-10.3) mg/dL TSH 0.245 L (0.350-5.500) UIU/ML 06/06/23 Range/Units 11:21 Sodium (135-145) mmol/L Est GFR (CKD-EPI) (>=60) POC Glucose (mg/dL) 258 H (70-110) mg/dL Calcium (8.7-10.3) mg/dL TSH (0.350-5.500) UIU/ML Assessment and Plan Assessment: #1 acute kidney injury secondary to prerenal process. -Baseline creatinine 0.8 MG per DL. -Urine analysis hematuria with proteinuria. Leukocyte esterase positive. Urine sodium less than 20 #2 complicated UTI #3 hypovolemic hyponatremia #4 hypertension, essential #5 hyperkalemia secondary to acute kidney injury Plan: #1 creatinine improving and stable. #2 sodiums drop today, repeat again tomorrow. #3 antibiotics as per primary team/infectious disease #4 avoid nephrotoxic agents and hypotensive episodes
[2023-06-06 16:32] LABS: Glucose,Whole Blood 127 mg/dL (70-110)
[2023-06-06 19:44] LABS: Glucose,Whole Blood 244 mg/dL (70-110)
[2023-06-06] MEDS: ATORVASTATIN 40 MG TAB PO SCH (21:28)
[2023-06-06] MEDS: INSULIN DETEMIR (LEVEMIR) 100 UNIT/ML SYR SQ SCH (21:29)
[2023-06-06] MEDS: MORPHINE SULFATE 4 MG/ML SYRINGE IV PRN (21:44)
[2023-06-07] MEDS: HYDROcodone/APAP 10-325MG 1 EACH TAB PO PRN ×4 (01:25→22:40)
[2023-06-07 06:08] LABS: Glucose,Whole Blood 112 mg/dL (70-110)
[2023-06-07] MEDS: INSULIN ASPART (NovoLOG) 100 UNIT/ML VIAL SQ SCH ×4 (06:33→20:19)
[2023-06-07] MEDS: PANTOPRAZOLE 40 MG TABLET PO SCH (06:37)
[2023-06-07] MEDS: amLODIPine 5 MG TAB PO SCH (08:21)
[2023-06-07] MEDS: ARIPiprazole 10 MG TAB PO SCH (08:21)
[2023-06-07] MEDS: allopurinoL 100 MG TAB PO SCH (08:21)
[2023-06-07] MEDS: LACTULOSE 20 GM/30 ML CUP PO SCH ×2 (08:21→20:19)
[2023-06-07] MEDS: OXYBUTYNIN 15 MG TAB.ER.24 PO SCH (08:21)
[2023-06-07] MEDS: DULoxetine HCL 60 MG CAPSULE.DR PO SCH ×2 (08:21→20:18)
[2023-06-07] MEDS: FOLIC ACID 1 MG TAB PO SCH (08:21)
[2023-06-07] MEDS: METOPROLOL TARTRATE 12.5 MG TAB PO SCH ×2 (08:21→20:17)
[2023-06-07] MEDS: THIAMINE 100 MG TAB PO SCH (08:21)
[2023-06-07] MEDS: MULTIVITAMINS, THERA 1 EACH TAB PO SCH (08:21)
[2023-06-07] MEDS: FERROUS SULFATE 325 MG TAB PO SCH (08:21)
[2023-06-07] MEDS: ASPIRIN 81 MG PO SCH (08:21)
[2023-06-07] MEDS: metroNIDAZOLE-NS PMX 500 MG in SALINE 1 100ML.BAG IVPB SCH ×2 (08:22→16:03)
[2023-06-07] MEDS: NYSTATIN 100,000 UNIT/GM POWD 15 GM TOPICAL SCH ×3 (08:27→22:31)
[2023-06-07] MEDS: NON FORMULARY DRUG (Mirabegron [Myrbetriq] 25 MG Tablet) PO SCH (08:27)
[2023-06-07 09:01] LABS: BUN/Creat Ratio 12.17 Ratio (12.00-20.00); Blood Urea Nitrogen 14.6 mg/dL (9.0-27.0); Calcium 8.5 mg/dL (8.7-10.3); Carbon Dioxide 24.5 mmol/L (21.6-31.8); Chloride 102 mmol/L (96-109); Glucose 103 mg/dL (70-110); Potassium 5.2 mmol/L (3.5-5.5); Sodium 134 mmol/L (135-145)
[2023-06-07 09:10] LABS: Basophils # (A) 0.04 X 10*3/uL (0.00-0.10); Basophils % (A) 0.5 %; Eosinophils # (A) 0.35 X 10*3/uL (0.04-0.35); Eosinophils % (A) 4.2 %; HGB 10.7 d/dL (12.0-15.0); Lymphocytes # (A) 1.56 X 10*3/uL (0.90-5.00); Lymphocytes % (A) 18.8 %; MCH 30.1 pg (27.0-32.0); MCHC 31.5 d/dL (32.0-37.0); MCV 95.5 FL (80.0-97.0); Mean Platelet Volume 11.3 FL (9.5-12.2); Monocytes % (A) 8.4 %; NRBC Per 100 WBC 0 X 10*3/uL (0.00-0.01); Neutrophils # (A) 5.53 X 10*3/uL (1.80-7.70); Neutrophils % (A) 66.8 %; Platelet Count 190 X 10*3/uL (140-440); RBC 3.56 X 10*6/uL (4.10-5.20); RDW 13.2 % (11.5-14.5); WBC 8.29 X 10*3/uL (4.50-10.00)
--- NOTE | 2023-06-07 10:47 | P.PN ---
Subjective Progress Note Date: 06/07/23 CHIEF COMPLAINT: Abdominal pain HISTORY OF PRESENT ILLNESS: Patient continues to report right-sided abdominal pain and right lower quadrant pain. She denies any nausea or vomiting. She did have a liquidy bowel movement today. She had been tolerating diet. Gallbladder ultrasound shows gallstone without ultrasound evidence for acute cholecystitis. HIDA scan reports normal filling of the gallbladder. Afebrile. WBC 8.29 PHYSICAL EXAM: VITAL SIGNS: Reviewed. GENERAL: Well-developed in no acute distress. ABDOMEN: Soft. Nondistended. tenderness with palpation to the right side of the abdomen from upper to lower quadrant NEUROLOGIC: Alert and oriented. Cranial nerves II through XII grossly intact. ASSESSMENT: 1. Right sided abdominal pain 2. Cholelithiasis 3. Distal esophageal wall thickening correlate for esophagitis noted on computed tomography scan 4. History of appendectomy 5. Constipation PLAN: -Continue full liquid diet -Continue lactulose for constipation -Continue supportive care -Continue Protonix -Further recommendations forthcoming per surgeon Physician Oracle Analyst note has been reviewed by physician. Signing provider agrees with the documented findings, assessment, and plan of care. I have personally seen and examined the patient, reviewed the [employer] /PAs history, exam and MDM and agree with the assessment and plan as written. Based on total visit time, I have performed more than 50% of the visit. As above: Patient has had bowel movements although says she still feels bloated and constipated. Says she only had a small amount of stool. Will order soapsuds enemas. Advance diet to regular. Agree with plans for EGD as outpatient. Objective - Vital Signs Vital signs: Vital Signs Temp 98.6 F 06/07/23 07:00 Pulse 63 06/07/23 07:00 Resp 16 06/07/23 07:00 BP 129/82 06/07/23 07:00 Pulse Ox 100 06/07/23 07:00 FiO2 Intake & Output 06/06/23 06/07/23 06/07/23 18:59 06:59 18:59 Intake Total 1000 Balance 1000 Intake: Oral 1000 Other: # Bowel Movements 2 - Labs CBC & Chem 7: 06/07/23 05:19 06/07/23 05:19 Labs: Abnormal Lab Results - Last 24 Hours (Table) 06/06/23 06/06/23 06/06/23 Range/Units 11:21 16:30 19:43 RBC (4.10-5.20) X 10*6/uL Hgb (12.0-15.0) d/dL Hct (37.2-46.3) % MCHC (32.0-37.0) d/dL Sodium (135-145) mmol/L Est GFR (CKD-EPI) (>=60) POC Glucose (mg/dL) 258 H 127 H 244 H (70-110) mg/dL Calcium (8.7-10.3) mg/dL 06/07/23 06/07/23 06/07/23 Range/Units 05:19 05:19 06:06 RBC 3.56 L (4.10-5.20) X 10*6/uL Hgb 10.7 L (12.0-15.0) d/dL Hct 34.0 L (37.2-46.3) % MCHC 31.5 L (32.0-37.0) d/dL Sodium 134 L (135-145) mmol/L Est GFR (CKD-EPI) 48 L (>=60) POC Glucose (mg/dL) 112 H (70-110) mg/dL Calcium 8.5 L (8.7-10.3) mg/dL
--- NOTE | 2023-06-07 11:22 | P.PN ---
Subjective Patient is seen in follow-up for acute kidney injury and hyponatremia. Sodium level and renal function both better. Oral intake fair. She is on fluid restriction. No vomiting. Has loose bowel movements at times. Vital signs are stable. General: No acute distress. HEENT: Head exam is unremarkable. LUNGS: No audible rhonchi or wheezes. HEART: Rate and Rhythm are regular. ABDOMEN: Nontender. EXTREMITITES: Trace edema. Objective - Vital Signs Vital signs: Vital Signs Temp 98.6 F 06/07/23 07:00 Pulse 63 06/07/23 08:00 Resp 16 06/07/23 08:00 BP 129/82 06/07/23 07:00 Pulse Ox 100 06/07/23 07:00 FiO2 Intake & Output 06/06/23 06/07/23 06/07/23 18:59 06:59 18:59 Intake Total 1000 Balance 1000 Intake: Oral 1000 Other: Voiding Method External Catheter # Bowel Movements 2 - Labs CBC & Chem 7: 06/07/23 05:19 06/07/23 05:19 Labs: Abnormal Lab Results - Last 24 Hours (Table) 06/06/23 06/06/23 06/06/23 Range/Units 11:21 16:30 19:43 RBC (4.10-5.20) X 10*6/uL Hgb (12.0-15.0) d/dL Hct (37.2-46.3) % MCHC (32.0-37.0) d/dL Sodium (135-145) mmol/L Est GFR (CKD-EPI) (>=60) POC Glucose (mg/dL) 258 H 127 H 244 H (70-110) mg/dL Calcium (8.7-10.3) mg/dL 06/07/23 06/07/23 06/07/23 Range/Units 05:19 05:19 06:06 RBC 3.56 L (4.10-5.20) X 10*6/uL Hgb 10.7 L (12.0-15.0) d/dL Hct 34.0 L (37.2-46.3) % MCHC 31.5 L (32.0-37.0) d/dL Sodium 134 L (135-145) mmol/L Est GFR (CKD-EPI) 48 L (>=60) POC Glucose (mg/dL) 112 H (70-110) mg/dL Calcium 8.5 L (8.7-10.3) mg/dL Assessment and Plan Plan: Assessment: 1. Acute kidney injury secondary to vasomotor nephropathy from hypovolemia. Creatinine peaked at 2.06 this admission and is 1.2 today. 2. Hypovolemic hyponatremia with component of poor solute intake improved with IV hydration. Urine sodium less than 20 and urine osmolality 179. Cortisol level on the lower end at 5. Status post cosyntropin stimulation test with normal adrenal response. 3. Hyperkalemia secondary to acute kidney injury, acidosis and losartan. Also component of hyperglycemia. Improved. 4. Metabolic acidosis secondary to acute kidney injury. Status post bicarb drip. Better. 5. Benign hypertension. Controlled. 6. Diabetes mellitus. 7. E. coli and Klebsiella UTI on antibiotics. Plan: Maintain fluid restriction. Blood sugar control. Encourage oral intake. Hold amlodipine for systolic blood pressure less than 120.
[2023-06-07 11:32] LABS: Glucose,Whole Blood 241 mg/dL (70-110)
[2023-06-07] MEDS: LEVOFLOXACIN 500MG-D5W PMX 500 MG in DEXTROSE/WATER 1 100ML.BAG IVPB SCH (11:36)
[2023-06-07 17:05] LABS: Glucose,Whole Blood 247 mg/dL (70-110)
[2023-06-07 19:33] LABS: Glucose,Whole Blood 302 mg/dL (70-110)
[2023-06-07] MEDS: ATORVASTATIN 40 MG TAB PO SCH (20:18)
[2023-06-07] MEDS: traZODone HCL 50 MG TAB PO SCH (20:18)
--- NOTE | 2023-06-07 21:33 | P.PN ---
Progress Note - Text Progress Note Date: 06/07/23 Chief Complaint: Nausea vomiting This is a 73-year-old patient, follows with visiting physicians Dr. Waller. At her baseline patient does use a cane sometimes a walker. Presents with 5 days of nausea vomiting. Unable to keep anything down. Right lower quadrant pain. Normally has a bowel movement once a week. No BM for last 2 days. Chills. Patient is hard of hearing. Tired rundown. Also having some intermittent chest pain. Patient is incontinent of urine. June 02: No further nausea vomiting since yesterday. Continues to have right lower quadrant pain. No bowel movement. On clear liquid diet. Computed tomography scan of the abdomen showed some gallstones. Otherwise unremarkable. Gallbladder ultrasound: Small mobile stones. No pericholecystic fluid or abnormal wall thickening. Suspect underlying mild colitis. Worsening renal function. Nephrology consulted. Some decrease in bicarbonate. We will change to sodium bicarbonate drip. No renal offensive drugs. Possibly right-sided low grade colitis. Strict I's and O's. 06/04/2023 pATIENT IS STILL COMPLAINING OF FROM SIGNIFICANT rIGHT LOWER QUADRANT ABDOMINAL PAIN AND TENDERNESS. sHE IS TOLERATING THE TOTAL LIQUID. nO NAUSEA VOMITING. She says her last bowel movement wasAbout 4-6 days ago. Today she had low-grade fever of 100.2. She has leukocytosis 16,000 came down to 8.8. She was on Levaquin started 2 days ago. We will add IV Flagyl. She remains onIV fluids. Lasix and Cozaar on hold. She is on aspirin 81 mg daily 06/05/2023 Patient still complaining of from right lower quadrant abdominal pain and tenderness, looks better today. KUB abdominal x-ray yesterday showing evidence of mild to moderate stool more on the right side. She had large liquid bowel movement this morning after she was started on lactulose 30 g twice daily. Her urine culture is growing Klebsiella and E. coli both sensitive to Cipro. Currently patient kept on Levaquin and Flagyl. Patient also noted a 75 mL/h. No indication for surgical intervention now for surgery team. Also she has right-sided chest pain and tenderness most likely musculoskeletal. Already evaluated by yarn dyer and they signed off the case. Patient states pain uncontrolled and requires more pain medication, increased her [place] 10 mg-325 06/06/2023 Patient symptoms feels better, she still have some musculoskeletal chest pain and right lower quadrant pain but it looks better, abdomen is very soft 11 on deep palpation. No suprapubic tenderness but patient still complaining of from dysuria, she has external catheter. Arthroscope was stopped and currently she is on Levaquin and Flagyl and she is improving. Informed about the recommendations of his general surgeon to do EGD as an outpatient for thickened esophagus and risks including but not limited to cancer are explained for her and she verbalized understanding and acceptance. She tolerates diet well June 07: I assumed care of the patient today. Some right lower quadrant pain still present. Tolerating full liquids. Advance to soft diet. Has had a small bowel. DC IV pain medications. Have the patient sit up in a chair. Active Medications Acetaminophen (Acetaminophen Tab 325 Mg Tab) 650 mg PO Q6HR PRN PRN Reason: Mild Pain or Fever > 100.5 Hydrocodone Bitart/Acetaminophen (Hydrocodone/Apap 10-325mg 1 Each Tab) 1 each PO Q6HR PRN PRN Reason: Pain Last Admin: 06/07/23 17:17 Dose: 1 each Allopurinol (Allopurinol 100 Mg Tab) 100 mg PO DAILY [facility] Last Admin: 06/07/23 08:21 Dose: 100 mg Amlodipine Besylate (Amlodipine 5 Mg Tab) 5 mg PO DAILY [facility] Last Admin: 06/07/23 08:21 Dose: 5 mg Aripiprazole (Aripiprazole 10 Mg Tab) 10 mg PO DAILY [facility] Last Admin: 06/07/23 08:21 Dose: 10 mg Aspirin (Aspirin 81 Mg) 81 mg PO DAILY [facility] Last Admin: 06/07/23 08:21 Dose: 81 mg Atorvastatin Calcium (Atorvastatin 40 Mg Tab) 40 mg PO HS [facility] Last Admin: 06/07/23 20:18 Dose: 40 mg Dextrose/Water (Dextrose 50% Syringe 50 Ml) 25 ml IVP PER PROTOCOL PRN; Protocol PRN Reason: Hypoglycemia Dextrose/Water (Dextrose 50% Syringe 50 Ml) 50 ml IVP PER PROTOCOL PRN; Protocol PRN Reason: Hypoglycemia Duloxetine HCl (Duloxetine Hcl 60 Mg Capsule.Dr) 60 mg PO BID [facility] Last Admin: 06/07/23 20:18 Dose: 60 mg Ferrous Sulfate (Ferrous Sulfate 325 Mg Tab) 325 mg PO DAILY [facility] Last Admin: 06/07/23 08:21 Dose: 325 mg Folic Acid (Folic Acid 1 Mg Tab) 1 mg PO DAILY [facility] Last Admin: 06/07/23 08:21 Dose: 1 mg Levofloxacin 500 mg/ IV (Solution) 100 mls @ 100 mls/hr IVPB Q48H [facility] Last Admin: 06/07/23 11:36 Dose: 100 mls/hr Metronidazole 500 mg/ IV (Solution) 100 mls @ 100 mls/hr IVPB Q8HR [facility]; Protocol Last Admin: 06/07/23 16:03 Dose: 100 mls/hr Insulin Aspart (Insulin Aspart (Novolog) 100 Unit/Ml Vial) 0 unit SQ ACHS [facility]; Protocol Last Admin: 06/07/23 20:19 Dose: 8 unit Insulin Detemir (Insulin Detemir (Levemir) 100 Unit/Ml Syr) 16 unit SQ HS [facility] Last Admin: 06/06/23 21:29 Dose: 16 unit Lactulose (Lactulose 20 Gm/30 Ml Cup) 30 gm PO BID [facility] Last Admin: 06/07/23 20:19 Dose: 30 gm Metoprolol Tartrate (Metoprolol Tartrate 12.5 Mg Tab) 37.5 mg PO BID [facility] Last Admin: 06/07/23 20:17 Dose: 37.5 mg Multivitamins (Multivitamins, Thera 1 Each Tab) 1 each PO DAILY [facility] Last Admin: 06/07/23 08:21 Dose: 1 each Naloxone HCl (Naloxone 0.4 Mg/Ml 1 Ml Vial) 0.2 mg IV Q2M PRN PRN Reason: Opioid Reversal Non-Formulary Medication (Mirabegron [Myrbetriq]) 25 mg PO DAILY [facility] Last Admin: 06/07/23 08:27 Dose: Not Given Nystatin (Nystatin 100,000 Unit/Gm Powd 15 Gm) 1 applic TOPICAL TID [facility]; Protocol Last Admin: 06/07/23 16:05 Dose: 1 applic Ondansetron HCl (Ondansetron 4 Mg/2 Ml Vial) 4 mg IVP Q8HR PRN PRN Reason: Nausea And Vomiting Last Admin: 06/02/23 05:12 Dose: 4 mg Oxybutynin Chloride (Oxybutynin 15 Mg Tab.Er.24) 15 mg PO DAILY [facility] Last Admin: 06/07/23 08:21 Dose: 15 mg Pantoprazole Sodium (Pantoprazole 40 Mg Tablet) 40 mg PO AC-BRKFST [facility] Last Admin: 06/07/23 06:37 Dose: 40 mg Thiamine HCl (Thiamine 100 Mg Tab) 100 mg PO DAILY [facility] Last Admin: 06/07/23 08:21 Dose: 100 mg Trazodone HCl (Trazodone Hcl 50 Mg Tab) 50 mg PO HS [facility] Last Admin: 06/07/23 20:18 Dose: 50 mg Past medical history to include: Depression, hyperlipidemia, urinary stress incontinence, diabetes mellitus type 2, CAD, COPD, DVT, GERD, hyperlipidemia, mentally incapacitated, chronic kidney disease stage IV, right lobectomy for lung cancer, abdominal wall hernia, Social history: Legal guardian Marianela Syed. Past history of alcohol dependence. Has 2 roommates. Has a caregiver. Family history: Cancer Physical examination: VITAL SIGNS: 98, a 61, 19, 105/73, 98% on 3 L GENERAL: Reclining in bed, comfortable EYES: Pupils equal. Conjunctiva normal. HEENT: External appearance of nose and ears normal, oral cavity dry mucous memb ranes. Heart appearing NECK: JVD not raised; masses not palpable. HEART: First and second heart sounds are normal; no edema. LUNGS: Respiratory rate normal; clear to auscultation. ABDOMEN: Soft, mild right abdominal tenderness, no guarding rigidity abdominal wall hernia nontender, liver spleen not palpable, no masses palpable. PSYCH: Answering questions appropriately MUSCULOSKELETAL:No Clubbing/cyanosis;muscles-grossly intact. OA INVESTIGATIONS, reviewed in the clinical context: June 07: White count 8.2 hemoglobin 10.7 potassium 5.2 creatinine 1.2 June 02: White count 12.5 hemoglobin 13.2 sodium 120 potassium 5.3 BUN 61 creatinine 2.06 glucose 387 Gallbladder ultrasound: Small mobile stones. No pericholecystic fluid. No gallbladder wall thickening. Computed tomography scan abdomen pelvis: No evidence of acute process. Gallstones. Colonic diverticulosis. Serum acetone: Negative June 01: White count 16.1 hemoglobin 14.3 platelets 258 sodium 124 potassium 5.4 BUN 47 creatinine 1.37 blood glucose 535 lactic acid 2.2 Troponin I 0.026, 0.037, 0.044 EKG tracing personally reviewed by me-normal sinus rhythm. Chest x-ray film personally reviewed by me-possible infiltrates Previous labs: Creatinine 0.851 01/2022 Assessment and plan: -Acute abdominal pain. 3-4 days, prior to presentation. Along with nausea vomiting. Some chills. Elevated white count. Unable to keep anything down. Tenderness in the right lower quadrant.: Possible right-sided low-grade colitis: Improving IV Levaquin and Flagyl Being followed by surgery. Computed tomography scan of the abdomen : Nothing acute Gallbladder ultrasound: Small mobile stones. Advance diet to soft bland. -Acute kidney injury possibly combination of prerenal and ATN. : Better IV fluids. Follow renal function Nephrology following -Hyponatremia, hypovolemia normal osmolality: Slow to respond Fluid restriction 1500 mL a day. -Metabolic acidosis from renal failure: Better IV bicarbonate drip was given -Morbid obesity BMI 49.6 Weight loss measures -Chronice constipation has a bowel movement normally once a day. -Diabetes mellitus type 2 on insulin, uncontrolled with hyperglycemia [patient t akes 2 different tests of insulin at home] Follow Accu-Cheks with sliding scale Levemir 16 units daily at bedtime. -Depression and anxiety Abilify 10 mg a day. Cymbalta 60 mg twice a day. -Essential hypertension, blood pressure in the lower side Norvasc 5 mg. Cutback Lopressor 25 mg twice a day -Hyperuricemia Allopurinol 100 mg a day -GERD Protonix 20 mg daily -Chronic urinary stress incontinence Oxybutynin 15 mg a day, Myrbetriq 25 mg a day -Chronic arthritis with pain [place] 10 1 tablet every 6 when necessary -Chronic hard of hearing -Chronic medical debility. At her baseline uses a walker -Legal guardian: Marianela Syed Diet soft bland. Fluid restriction. Blood pressure in the softer side. Cutback Lopressor 25 mg twice a day.
[2023-06-07] MEDS: INSULIN DETEMIR (LEVEMIR) 100 UNIT/ML SYR SQ SCH (22:00)
[2023-06-08] MEDS: metroNIDAZOLE-NS PMX 500 MG in SALINE 1 100ML.BAG IVPB SCH ×4 (00:54→23:31)
[2023-06-08] MEDS: HYDROcodone/APAP 10-325MG 1 EACH TAB PO PRN ×3 (05:11→23:01)
[2023-06-08 05:16] LABS: Glucose,Whole Blood 142 mg/dL (70-110)
[2023-06-08] MEDS: PANTOPRAZOLE 40 MG TABLET PO SCH (06:39)
[2023-06-08] MEDS: INSULIN ASPART (NovoLOG) 100 UNIT/ML VIAL SQ SCH ×4 (06:39→22:54)
[2023-06-08] MEDS: amLODIPine 5 MG TAB PO SCH (08:34)
[2023-06-08] MEDS: FOLIC ACID 1 MG TAB PO SCH (08:38)
[2023-06-08] MEDS: OXYBUTYNIN 15 MG TAB.ER.24 PO SCH (08:38)
[2023-06-08] MEDS: NYSTATIN 100,000 UNIT/GM POWD 15 GM TOPICAL SCH ×3 (08:38→22:55)
[2023-06-08] MEDS: FERROUS SULFATE 325 MG TAB PO SCH (08:39)
[2023-06-08] MEDS: MULTIVITAMINS, THERA 1 EACH TAB PO SCH (08:39)
[2023-06-08] MEDS: ASPIRIN 81 MG PO SCH (08:39)
[2023-06-08] MEDS: allopurinoL 100 MG TAB PO SCH (08:39)
[2023-06-08] MEDS: THIAMINE 100 MG TAB PO SCH (08:39)
[2023-06-08] MEDS: LACTULOSE 20 GM/30 ML CUP PO SCH ×2 (08:39→23:33)
[2023-06-08] MEDS: ARIPiprazole 10 MG TAB PO SCH (08:39)
[2023-06-08] MEDS: METOPROLOL TARTRATE 25 MG TAB PO SCH ×2 (08:39→22:52)
[2023-06-08] MEDS: DULoxetine HCL 60 MG CAPSULE.DR PO SCH ×2 (08:39→22:53)
[2023-06-08] MEDS: NON FORMULARY DRUG (Mirabegron [Myrbetriq] 25 MG Tablet) PO SCH (08:46)
[2023-06-08 11:10] LABS: BUN/Creat Ratio 12.42 Ratio (12.00-20.00); Blood Urea Nitrogen 14.9 mg/dL (9.0-27.0); Calcium 7.9 mg/dL (8.7-10.3); Carbon Dioxide 24.2 mmol/L (21.6-31.8); Chloride 104 mmol/L (96-109); Glucose 135 mg/dL (70-110); Magnesium 2.1 mg/dL (1.5-2.4); Potassium 5.2 mmol/L (3.5-5.5); Sodium 135 mmol/L (135-145)
--- NOTE | 2023-06-08 11:35 | P.PN ---
Subjective Patient is seen in follow-up for acute kidney injury and hyponatremia. Sodium level and renal function both improved. Oral intake fair. She is on fluid restriction. No vomiting. No active complaints. Vital signs are stable. General: No acute distress. HEENT: Head exam is unremarkable. LUNGS: No audible rhonchi or wheezes. HEART: Rate and Rhythm are regular. ABDOMEN: Nontender. EXTREMITITES: Trace edema. Objective - Vital Signs Vital signs: Vital Signs Temp 98.3 F 06/08/23 07:22 Pulse 86 06/08/23 07:22 Resp 17 06/08/23 07:22 BP 101/53 06/08/23 07:22 Pulse Ox 98 06/08/23 08:54 FiO2 Intake & Output 06/07/23 06/08/23 06/08/23 18:59 06:59 18:59 Output Total 600 350 Balance -600 -350 Output: Urine 600 350 Other: Voiding Method External Catheter External Catheter External Catheter # Bowel Movements 1 - Labs CBC & Chem 7: 06/07/23 05:19 06/08/23 05:35 Labs: Abnormal Lab Results - Last 24 Hours (Table) 06/07/23 06/07/23 06/07/23 Range/Units 11:30 17:04 19:31 Est GFR (CKD-EPI) (>=60) Glucose (70-110) mg/dL POC Glucose (mg/dL) 241 H 247 H 302 H (70-110) mg/dL Calcium (8.7-10.3) mg/dL 06/08/23 06/08/23 Range/Units 05:13 05:35 Est GFR (CKD-EPI) 48 L (>=60) Glucose 135 H (70-110) mg/dL POC Glucose (mg/dL) 142 H (70-110) mg/dL Calcium 7.9 L (8.7-10.3) mg/dL Assessment and Plan Plan: Assessment: 1. Acute kidney injury secondary to vasomotor nephropathy from hypovolemia. Creatinine peaked at 2.06 this admission and is stable at 1.2 today. 2. Hypovolemic hyponatremia with component of poor solute intake improved with IV hydration. Urine sodium less than 20 and urine osmolality 179. Cortisol l evel on the lower end at 5. Status post cosyntropin stimulation test with normal adrenal response. 3. Hyperkalemia secondary to acute kidney injury, acidosis and losartan. Also component of hyperglycemia. Improved. 4. Metabolic acidosis secondary to acute kidney injury. Status post bicarb dri p. Better. 5. Benign hypertension. Controlled. 6. Diabetes mellitus. 7. E. coli and Klebsiella UTI on antibiotics. Plan: Maintain fluid restriction. Blood sugar control. Encourage oral intake. Hold amlodipine for systolic blood pressure less than 120.
[2023-06-08 11:51] VITALS: BMI 49.5
[2023-06-08 12:06] LABS: Glucose,Whole Blood 243 mg/dL (70-110)
--- NOTE | 2023-06-08 13:57 | P.PN ---
Subjective Progress Note Date: 06/08/23 CHIEF COMPLAINT: Abdominal pain HISTORY OF PRESENT ILLNESS: Patient continues to report right-sided abdominal pain and right lower quadrant pain. She denies any nausea or vomiting. She did tolerate regular diet. She had a small bowel movement yesterday. Soapsuds enema was not done yesterday. Per Nursing charting patient refused. PHYSICAL EXAM: VITAL SIGNS: Reviewed. GENERAL: Well-developed in no acute distress. ABDOMEN: Soft. Nondistended. tenderness with palpation to the right side of the abdomen from upper to lower quadrant NEUROLOGIC: Alert and oriented. Cranial nerves II through XII grossly intact. ASSESSMENT: 1. Right sided abdominal pain 2. Constipation 3. Distal esophageal wall thickening correlate for esophagitis noted on computed tomography scan 4. History of appendectomy 5. Cholelithiasis PLAN: -Agree with ordering Soap Jessi enema -Continue regular diet -Recommend EGD outpatient -Continue lactulose for constipation -Continue Protonix -Encourage patient to increase activity level Physician Entry Level Sales Representative note has been reviewed by physician. Signing provider agrees with the documented findings, assessment, and plan of care. I have personally seen and examined the patient, reviewed the DRY TRANSFER MAN /PAs history, exam and MDM and agree with the assessment and plan as written. Based on total visit time, I have performed more than 50% of the visit. As above: Patient just had her enema given to her. She has not stooled yet. Still having mild right lower quadrant pain. Will reassess tomorrow. Objective - Vital Signs Vital signs: Vital Signs Temp 98.3 F 06/08/23 07:22 Pulse 86 06/08/23 07:22 Resp 17 06/08/23 07:22 BP 101/53 06/08/23 07:22 Pulse Ox 98 06/08/23 08:54 FiO2 Intake & Output 06/07/23 06/08/23 06/08/23 18:59 06:59 18:59 Output Total 600 350 Balance -600 -350 Output: Urine 600 350 Other: Voiding Method External Catheter External Catheter # Bowel Movements 1 - Labs CBC & Chem 7: 06/07/23 05:19 06/08/23 05:35 Labs: Abnormal Lab Results - Last 24 Hours (Table) 06/07/23 06/07/23 06/07/23 Range/Units 11:30 17:04 19:31 POC Glucose (mg/dL) 241 H 247 H 302 H (70-110) mg/dL 06/08/23 Range/Units 05:13 POC Glucose (mg/dL) 142 H (70-110) mg/dL
[2023-06-08 16:25] LABS: Glucose,Whole Blood 236 mg/dL (70-110)
[2023-06-08] MEDS ORDERED: MAGNESIUM CITRATE 296 ML BOTTLE PO ONE (19:13)
--- NOTE | 2023-06-08 19:18 | P.PN ---
Progress Note - Text Progress Note Date: 06/08/23 Chief Complaint: Nausea vomiting This is a 73-year-old patient, follows with visiting physicians Dr. Waller. At her baseline patient does use a cane sometimes a walker. Presents with 5 days of nausea vomiting. Unable to keep anything down. Right lower quadrant pain. Normally has a bowel movement once a week. No BM for last 2 days. Chills. Patient is hard of hearing. Tired rundown. Also having some intermittent chest pain. Patient is incontinent of urine. June 02: No further nausea vomiting since yesterday. Continues to have right lower quadrant pain. No bowel movement. On clear liquid diet. Computed tomography scan of the abdomen showed some gallstones. Otherwise unremarkable. Gallbladder ultrasound: Small mobile stones. No pericholecystic fluid or abnormal wall thickening. Suspect underlying mild colitis. Worsening renal function. Nephrology consulted. Some decrease in bicarbonate. We will change to sodium bicarbonate drip. No renal offensive drugs. Possibly right-sided low grade colitis. Strict I's and O's. 06/04/2023 pATIENT IS STILL COMPLAINING OF FROM SIGNIFICANT rIGHT LOWER QUADRANT ABDOMINAL PAIN AND TENDERNESS. sHE IS TOLERATING THE TOTAL LIQUID. nO NAUSEA VOMITING. She says her last bowel movement wasAbout 4-6 days ago. Today she had low-grade fever of 100.2. She has leukocytosis 16,000 came down to 8.8. She was on Levaquin started 2 days ago. We will add IV Flagyl. She remains onIV fluids. Lasix and Cozaar on hold. She is on aspirin 81 mg daily 06/05/2023 Patient still complaining of from right lower quadrant abdominal pain and tenderness, looks better today. KUB abdominal x-ray yesterday showing evidence of mild to moderate stool more on the right side. She had large liquid bowel movement this morning after she was started on lactulose 30 g twice daily. Her urine culture is growing Klebsiella and E. coli both sensitive to Cipro. Currently patient kept on Levaquin and Flagyl. Patient also noted a 75 mL/h. No indication for surgical intervention now for surgery team. Also she has right-sided chest pain and tenderness most likely musculoskeletal. Already evaluated by passenger relations representative and they signed off the case. Patient states pain uncontrolled and requires more pain medication, increased her [place] 10 mg-325 06/06/2023 Patient symptoms feels better, she still have some musculoskeletal chest pain and right lower quadrant pain but it looks better, abdomen is very soft 11 on deep palpation. No suprapubic tenderness but patient still complaining of from dysuria, she has external catheter. Arthroscope was stopped and currently she is on Levaquin and Flagyl and she is improving. Informed about the recommendations of his general surgeon to do EGD as an outpatient for thickened esophagus and risks including but not limited to cancer are explained for her and she verbalized understanding and acceptance. She tolerates diet well June 07: I assumed care of the patient today. Some right lower quadrant pain still present. Tolerating full liquids. Advance to soft diet. Has had a small bowel movement. DC IV pain medications. Have the patient sit up in a chair. June 08: Patient has not had a good bowel movement. Enema was ordered. Patient only had some brown watery output. Mag citrate ordered. Otherwise patient tolerating a diet well. Tolerating regular diet. Active Medications Acetaminophen (Acetaminophen Tab 325 Mg Tab) 650 mg PO Q6HR PRN PRN Reason: Mild Pain or Fever > 100.5 Hydrocodone Bitart/Acetaminophen (Hydrocodone/Apap 10-325mg 1 Each Tab) 1 each PO Q6HR PRN PRN Reason: Pain Last Admin: 06/08/23 12:44 Dose: 1 each Allopurinol (Allopurinol 100 Mg Tab) 100 mg PO DAILY [facility] Last Admin: 06/08/23 08:39 Dose: 100 mg Amlodipine Besylate (Amlodipine 5 Mg Tab) 5 mg PO DAILY [facility] Last Admin: 06/08/23 08:34 Dose: Not Given Aripiprazole (Aripiprazole 10 Mg Tab) 10 mg PO DAILY [facility] Last Admin: 06/08/23 08:39 Dose: 10 mg Aspirin (Aspirin 81 Mg) 81 mg PO DAILY [facility] Last Admin: 06/08/23 08:39 Dose: 81 mg Atorvastatin Calcium (Atorvastatin 40 Mg Tab) 40 mg PO HS [facility] Last Admin: 06/07/23 20:18 Dose: 40 mg Dextrose/Water (Dextrose 50% Syringe 50 Ml) 25 ml IVP PER PROTOCOL PRN; Protocol PRN Reason: Hypoglycemia Dextrose/Water (Dextrose 50% Syringe 50 Ml) 50 ml IVP PER PROTOCOL PRN; Protocol PRN Reason: Hypoglycemia Duloxetine HCl (Duloxetine Hcl 60 Mg Capsule.Dr) 60 mg PO BID [facility] Last Admin: 06/08/23 08:39 Dose: 60 mg Ferrous Sulfate (Ferrous Sulfate 325 Mg Tab) 325 mg PO DAILY [facility] Last Admin: 06/08/23 08:39 Dose: 325 mg Folic Acid (Folic Acid 1 Mg Tab) 1 mg PO DAILY [facility] Last Admin: 06/08/23 08:38 Dose: 1 mg Levofloxacin 500 mg/ IV (Solution) 100 mls @ 100 mls/hr IVPB Q48H [facility] Last Admin: 06/07/23 11:36 Dose: 100 mls/hr Metronidazole 500 mg/ IV (Solution) 100 mls @ 100 mls/hr IVPB Q8HR [facility]; Protocol Last Admin: 06/08/23 17:03 Dose: 100 mls/hr Insulin Aspart (Insulin Aspart (Novolog) 100 Unit/Ml Vial) 0 unit SQ ACHS [facility]; Protocol Last Admin: 06/08/23 17:04 Dose: 4 unit Insulin Detemir (Insulin Detemir (Levemir) 100 Unit/Ml Syr) 16 unit SQ HS [facility] Last Admin: 06/07/23 22:00 Dose: 16 unit Lactulose (Lactulose 20 Gm/30 Ml Cup) 30 gm PO BID [facility] Last Admin: 06/08/23 08:39 Dose: 30 gm Metoprolol Tartrate (Metoprolol Tartrate 25 Mg Tab) 25 mg PO BID [facility] Last Admin: 06/08/23 08:39 Dose: 25 mg Multivitamins (Multivitamins, Thera 1 Each Tab) 1 each PO DAILY [facility] Last Admin: 06/08/23 08:39 Dose: 1 each Naloxone HCl (Naloxone 0.4 Mg/Ml 1 Ml Vial) 0.2 mg IV Q2M PRN PRN Reason: Opioid Reversal Non-Formulary Medication (Mirabegron [Myrbetriq]) 25 mg PO DAILY [facility] Last Admin: 06/08/23 08:46 Dose: Not Given Nystatin (Nystatin 100,000 Unit/Gm Powd 15 Gm) 1 applic TOPICAL TID [facility]; Protocol Last Admin: 06/08/23 17:03 Dose: 1 applic Ondansetron HCl (Ondansetron 4 Mg/2 Ml Vial) 4 mg IVP Q8HR PRN PRN Reason: Nausea And Vomiting Last Admin: 06/02/23 05:12 Dose: 4 mg Oxybutynin Chloride (Oxybutynin 15 Mg Tab.Er.24) 15 mg PO DAILY [facility] Last Admin: 06/08/23 08:38 Dose: 15 mg Pantoprazole Sodium (Pantoprazole 40 Mg Tablet) 40 mg PO AC-BRKFST [facility] Last Admin: 06/08/23 06:39 Dose: 40 mg Thiamine HCl (Thiamine 100 Mg Tab) 100 mg PO DAILY [facility] Last Admin: 06/08/23 08:39 Dose: 100 mg Trazodone HCl (Trazodone Hcl 50 Mg Tab) 50 mg PO HS [facility] Last Admin: 06/07/23 20:18 Dose: 50 mg Past medical history to include: Depression, hyperlipidemia, urinary stress incontinence, diabetes mellitus type 2, CAD, COPD, DVT, GERD, hyperlipidemia, mentally incapacitated, chronic kidney disease stage IV, right lobectomy for lung cancer, abdominal wall hernia, Social history: Legal guardian Marianela Syed. Past history of alcohol dependence. Has 2 roommates. Has a caregiver. Family history: Cancer Physical examination: VITAL SIGNS: 98.3, 86, 17, 101/53, 98% on 3 L GENERAL: Reclining in bed, comfortable EYES: Pupils equal. Conjunctiva normal. HEENT: External appearance of nose and ears normal, oral cavity dry mucous membranes. Heart appearing NECK: JVD not raised; masses not palpable. HEART: First and second heart sounds are normal; no edema. LUNGS: Respiratory rate normal; clear to auscultation. ABDOMEN: Soft, mild right abdominal tenderness, no guarding rigidity abdominal wall hernia nontender, liver spleen not palpable, no masses palpable. PSYCH: Answering questions appropriately MUSCULOSKELETAL:No Clubbing/cyanosis;muscles-grossly intact. OA INVESTIGATIONS, reviewed in the clinical context: June 08: Sodium 135 potassium 5.2 creatinine 1.2 June 07: White count 8.2 hemoglobin 10.7 potassium 5.2 creatinine 1.2 June 02: White count 12.5 hemoglobin 13.2 sodium 120 potassium 5.3 BUN 61 creatinine 2.06 glucose 387 Gallbladder ultrasound: Small mobile stones. No pericholecystic fluid. No gallbladder wall thickening. Computed tomography scan abdomen pelvis: No evidence of acute process. Gallstones. Colonic diverticulosis. Serum acetone: Negative June 01: White count 16.1 hemoglobin 14.3 platelets 258 sodium 124 potassium 5.4 BUN 47 creatinine 1.37 blood glucose 535 lactic acid 2.2 Troponin I 0.026, 0.037, 0.044 EKG tracing personally reviewed by me-normal sinus rhythm. Chest x-ray film personally reviewed by me-possible infiltrates Previous labs: Creatinine 0.851 01/2022 Assessment and plan: -Acute abdominal pain. 3-4 days, prior to presentation. Along with nausea vomiting. Some chills. Elevated white count. Unable to keep anything down. Tenderness in the right lower quadrant.: Possible right-sided low-grade colitis: Improving IV Levaquin and Flagyl Being followed by surgery. Computed tomography scan of the abdomen : Nothing acute Gallbladder ultrasound: Small mobile stones. Tolerating regular diet -Acute kidney injury possibly combination of prerenal and ATN. : Better IV fluids. Follow renal function Nephrology following -Hyponatremia, hypovolemia normal osmolality: Much improved Fluid restriction 2000 mL a day. -Metabolic acidosis from renal failure: Better IV bicarbonate drip was given -Morbid obesity BMI 49.6 Weight loss measures -Chronice constipation has a bowel movement normally once a day. -Diabetes mellitus type 2 on insulin, uncontrolled with hyperglycemia [patient takes 2 different tests of insulin at home] Follow Accu-Cheks with sliding scale Levemir 16 units daily at bedtime. -Depression and anxiety Abilify 10 mg a day. Cymbalta 60 mg twice a day. -Essential hypertension, blood pressure in the lower side Norvasc cutback to 2.5 mg a day Cutback Lopressor 25 mg twice a day -Constipation Not much output with enema. Give magnesium citrate -Hyperuricemia Allopurinol 100 mg a day -GERD Protonix 20 mg daily -Chronic urinary stress incontinence Oxybutynin 15 mg a day, Myrbetriq 25 mg a day -Chronic arthritis with pain [place] 10 1 tablet every 6 when necessary -Chronic hard of hearing -Chronic medical debility. At her baseline uses a walker -Legal guardian: Marianela Syed Blood pressure running on the lower side. Change fluid restriction to 2000 mL a day. Cutback amlodipine to 2.5 mg daily. Magnesium citrate
[2023-06-08 19:34] LABS: Glucose,Whole Blood 204 mg/dL (70-110)
[2023-06-08] MEDS: traZODone HCL 50 MG TAB PO SCH (22:52)
[2023-06-08] MEDS: INSULIN DETEMIR (LEVEMIR) 100 UNIT/ML SYR SQ SCH (22:53)
[2023-06-08] MEDS: ATORVASTATIN 40 MG TAB PO SCH (22:53)
[2023-06-09 05:49] LABS: Glucose,Whole Blood 285 mg/dL (70-110)
[2023-06-09] MEDS: PANTOPRAZOLE 40 MG TABLET PO SCH (05:56)
[2023-06-09] MEDS: HYDROcodone/APAP 10-325MG 1 EACH TAB PO PRN ×2 (05:56→11:51)
[2023-06-09] MEDS: INSULIN ASPART (NovoLOG) 100 UNIT/ML VIAL SQ SCH ×2 (06:48→11:50)
[2023-06-09 08:49] VITALS: RESP 20
[2023-06-09] MEDS: metroNIDAZOLE-NS PMX 500 MG in SALINE 1 100ML.BAG IVPB SCH (08:52)
[2023-06-09] MEDS: LACTULOSE 20 GM/30 ML CUP PO SCH (08:53)
[2023-06-09] MEDS: FOLIC ACID 1 MG TAB PO SCH (08:54)
[2023-06-09] MEDS: MULTIVITAMINS, THERA 1 EACH TAB PO SCH (08:54)
[2023-06-09] MEDS: ASPIRIN 81 MG PO SCH (08:54)
[2023-06-09] MEDS: DULoxetine HCL 60 MG CAPSULE.DR PO SCH (08:54)
[2023-06-09] MEDS: allopurinoL 100 MG TAB PO SCH (08:55)
[2023-06-09] MEDS: ARIPiprazole 10 MG TAB PO SCH (08:55)
[2023-06-09] MEDS: OXYBUTYNIN 15 MG TAB.ER.24 PO SCH (08:55)
[2023-06-09] MEDS ORDERED: amLODIPine 2.5 MG TAB PO SCH (09:00)
[2023-06-09] MEDS: THIAMINE 100 MG TAB PO SCH (09:02)
[2023-06-09] MEDS: FERROUS SULFATE 325 MG TAB PO SCH (09:10)
[2023-06-09] MEDS: METOPROLOL TARTRATE 25 MG TAB PO SCH (09:13)
[2023-06-09] MEDS: NYSTATIN 100,000 UNIT/GM POWD 15 GM TOPICAL SCH (09:15)
[2023-06-09] MEDS: NON FORMULARY DRUG (Mirabegron [Myrbetriq] 25 MG Tablet) PO SCH (09:53)
[2023-06-09 11:31] LABS: Glucose,Whole Blood 344 mg/dL (70-110)
--- NOTE | 2023-06-09 11:44 | P.PN ---
Subjective Patient is seen in follow-up for acute kidney injury and hyponatremia. Sodium level and renal function both improved. Oral intake fair. She is on fluid restriction. No vomiting. Does admit to loose bowel movements. No active complaints. Vital signs are stable. General: No acute distress. HEENT: Head exam is unremarkable. LUNGS: No audible rhonchi or wheezes. HEART: Rate and Rhythm are regular. ABDOMEN: Nontender. EXTREMITITES: Trace edema. Objective - Vital Signs Vital signs: Vital Signs Temp 98.2 F 06/09/23 07:54 Pulse 65 06/09/23 07:54 Resp 20 06/09/23 07:54 BP 124/59 06/09/23 07:54 Pulse Ox 98 06/09/23 07:54 FiO2 Intake & Output 06/08/23 06/09/23 06/09/23 18:59 06:59 18:59 Intake Total 1120 200 Output Total 500 Balance 620 200 Weight 103.873 kg Intake: Intake, IV Titration 200 Amount Levofloxacin 500Mg-D5w 100 Pmx 500 mg In Dextrose/ Water 1 100ml.bag @ 100 mls/hr IVPB Q48H [facility] Rx#: [id number] metroNIDAZOLE-NS PMX 500 100 mg In Saline 1 100ml.bag @ 100 mls/hr IVPB Q8HR [facility] Rx#:[id number] Oral 1120 Output: Urine 500 Other: Voiding Method External Catheter External Catheter - Labs CBC & Chem 7: 06/07/23 05:19 06/08/23 05:35 Labs: Abnormal Lab Results - Last 24 Hours (Table) 06/08/23 06/08/23 06/08/23 Range/Units 12:04 16:23 19:33 POC Glucose (mg/dL) 243 H 236 H 204 H (70-110) mg/dL 06/09/23 06/09/23 Range/Units 05:47 11:30 POC Glucose (mg/dL) 285 H 344 H (70-110) mg/dL Assessment and Plan Plan: Assessment: 1. Acute kidney injury secondary to vasomotor nephropathy from hypovolemia. Creatinine peaked at 2.06 this admission and is stable at 1.2 yesterday. 2. Hypovolemic hyponatremia with component of poor solute intake improved with IV hydration. Urine sodium less than 20 and urine osmolality 179. Cortisol level on the lower end at 5. Status post cosyntropin stimulation test with normal adrenal response. 3. Hyperkalemia secondary to acute kidney injury, acidosis and losartan. Also component of hyperglycemia. Improved. 4. Metabolic acidosis secondary to acute kidney injury. Status post bicarb drip. Better. 5. Benign hypertension. Controlled. 6. Diabetes mellitus. 7. E. coli and Klebsiella UTI on antibiotics. Plan: Maintain fluid restriction. Blood sugar control. Encourage oral intake. Hold amlodipine for systolic blood pressure less than 120. Repeat labs in the morning.
--- NOTE | 2023-06-09 11:46 | P.PN ---
Subjective Progress Note Date: 06/09/23 CHIEF COMPLAINT: Abdominal pain HISTORY OF PRESENT ILLNESS: Patient reports she is feeling better today. Abdominal pain he is improving. She did have a large bowel movement after the negative citrate. Had small BM with the soapsuds enema. Denies any nausea or vomiting. Tolerating regular diet. Afebrile. PHYSICAL EXAM: VITAL SIGNS: Reviewed. GENERAL: Well-developed in no acute distress. ABDOMEN: Soft. Nondistended. Minimal discomfort with palpation right lower quadrant NEUROLOGIC: Alert and oriented. Cranial nerves II through XII grossly intact. ASSESSMENT: 1. Right sided abdominal pain 2. Constipation 3. Distal esophageal wall thickening correlate for esophagitis noted on comp uted tomography scan 4. History of appendectomy 5. Cholelithiasis PLAN: -Patient can be discharged from surgical standpoint when medically stable -Continue a good bowel regimen at home -Continue regular diet -Recommend EGD outpatient -Continue lactulose for constipation -Continue Protonix -Encourage patient to increase activity level -Surgical service will sign off. Please call with any questions or concerns. Physician Wash Helper note has been reviewed by physician. Signing provider agrees with the documented findings, assessment, and plan of care. I have personally seen and examined the patient, reviewed the FURNITURE FABRICATOR /PAs history, exam and MDM and agree with the assessment and plan as written. Based on total visit time, I have performed more than 50% of the visit. As above: Patient seen on rounds yesterday. Pain was improved. Good bowel function after enema. Recommend outpatient follow-up for EGD. No further surgical plans at this time. We'll sign off. Please call if needed. Objective - Vital Signs Vital signs: Vital Signs Temp 98.2 F 06/09/23 07:54 Pulse 65 06/09/23 07:54 Resp 20 06/09/23 07:54 BP 124/59 06/09/23 07:54 Pulse Ox 98 06/09/23 07:54 FiO2 Intake & Output 06/08/23 06/09/23 06/09/23 18:59 06:59 18:59 Intake Total 1120 200 Output Total 500 Balance 620 200 Weight 103.873 kg Intake: Intake, IV Titration 200 Amount Levofloxacin 500Mg-D5w 100 Pmx 500 mg In Dextrose/ Water 1 100ml.bag @ 100 mls/hr IVPB Q48H [facility] Rx#: [id number] metroNIDAZOLE-NS PMX 500 100 mg In Saline 1 100ml.bag @ 100 mls/hr IVPB Q8HR [facility] Rx#:[id number] Oral 1120 Output: Urine 500 Other: Voiding Method External Catheter External Catheter - Labs CBC & Chem 7: 06/07/23 05:19 06/08/23 05:35 Labs: Abnormal Lab Results - Last 24 Hours (Table) 06/08/23 06/08/23 06/08/23 Range/Units 05:35 12:04 16:23 Est GFR (CKD-EPI) 48 L (>=60) Glucose 135 H (70-110) mg/dL POC Glucose (mg/dL) 243 H 236 H (70-110) mg/dL Calcium 7.9 L (8.7-10.3) mg/dL 06/08/23 06/09/23 Range/Units 19:33 05:47 Est GFR (CKD-EPI) (>=60) Glucose (70-110) mg/dL POC Glucose (mg/dL) 204 H 285 H (70-110) mg/dL Calcium (8.7-10.3) mg/dL
[2023-06-09] MEDS: LEVOFLOXACIN 500MG-D5W PMX 500 MG in DEXTROSE/WATER 1 100ML.BAG IVPB SCH (11:50)
[2023-06-09 14:55] VITALS: BP 113/66; PULSE 62; TEMP 98.3
--- NOTE | 2023-06-09 18:49 | P.DS ---
Providers Date of admission: 06/01/23 13:25 Expected date of discharge: 06/09/23 Attending physician: Augustus Jackson Consults: 06/01/23 12:16 Consult Physician Routine Consulting Provider: Singh Blancas Consult Reason/Comments: RLQ pain Do you want consulting provider notified?: Yes 06/02/23 11:44 Consult Physician Routine Consulting Provider: Kaiden Francisco Consult Reason/Comments: FELIPA/low sodium Do you want consulting provider notified?: Yes Primary care physician: Collin Waller MD Hospital Course: Chief Complaint: Nausea vomiting This is a 73-year-old patient, follows with visiting physicians Dr. Waller. At her baseline patient does use a cane sometimes a walker. Presents with 5 days of nausea vomiting. Unable to keep anything down. Right lower quadrant pain. Normally has a bowel movement once a week. No BM for last 2 days. Chills. Patient is hard of hearing. Tired rundown. Also having some intermittent chest pain. Patient is incontinent of urine. June 02: No further nausea vomiting since yesterday. Continues to have right lower quadrant pain. No bowel movement. On clear liquid diet. Computed tomography scan of the abdomen showed some gallstones. Otherwise unremarkable. Gallbladder ultrasound: Small mobile stones. No pericholecystic fluid or abnormal wall thickening. Suspect underlying mild colitis. Worsening renal function. Nephrology consulted. Some decrease in bicarbonate. We will change to sodium bicarbonate drip. No renal offensive drugs. Possibly right-sided low grade colitis. Strict I's and O's. 06/04/2023 pATIENT IS STILL COMPLAINING OF FROM SIGNIFICANT rIGHT LOWER QUADRANT ABDOMINAL PAIN AND TENDERNESS. sHE IS TOLERATING THE TOTAL LIQUID. nO NAUSEA VOMITING. She says her last bowel movement wasAbout 4-6 days ago. Today she had low-grade fever of 100.2. She has leukocytosis 16,000 came down to 8.8. She was on Levaquin started 2 days ago. We will add IV Flagyl. She remains onIV fluids. Lasix and Cozaar on hold. She is on aspirin 81 mg daily 06/05/2023 Patient still complaining of from right lower quadrant abdominal pain and tenderness, looks better today. KUB abdominal x-ray yesterday showing evidence of mild to moderate stool more on the right side. She had large liquid bowel movement this morning after she was started on lactulose 30 g twice daily. Her urine culture is growing Klebsiella and E. coli both sensitive to Cipro. Currently patient kept on Levaquin and Flagyl. Patient also noted a 75 mL/h. No indication for surgical intervention now for surgery team. Also she has right-sided chest pain and tenderness most likely musculoskeletal. Already evaluated by leveling machine operator and they signed off the case. Patient states pain uncontrolled and requires more pain medication, increased her Milano 10 mg-325 06/06/2023 Patient symptoms feels better, she still have some musculoskeletal chest pain and right lower quadrant pain but it looks better, abdomen is very soft 11 on deep palpation. No suprapubic tenderness but patient still complaining of from dysuria, she has external catheter. Arthroscope was stopped and currently she is on Levaquin and Flagyl and she is improving. Informed about the recommendations of his general surgeon to do EGD as an outpatient for thickened esophagus and risks including but not limited to cancer are explained for her and she verbalized understanding and acceptance. She tolerates diet well June 07: I assumed care of the patient today. Some right lower quadrant pain still present. Tolerating full liquids. Advance to soft diet. Has had a small bowel movement. DC IV pain medications. Have the patient sit up in a chair. June 08: Patient has not had a good bowel movement. Enema was ordered. Laurent simons only had some brown watery output. Mag citrate ordered. Otherwise patient tolerating a diet well. Tolerating regular diet. June 09: Patient had a very good response to magnesium citrate yesterday. Stable today. Tolerating regular diet. No nausea vomiting. Patient has completed a week of antibiotics. We'll discontinue the same. Patient returned home. Discussed with correctional case records supervisor. Blood pressure medications adjusted. Follow with Dr. Karthik Ervin outpatient June 30. For EGD. Discussion and discharge planning more than 35 minutes Past medical history to include: Depression, hyperlipidemia, urinary stress incontinence, diabetes mellitus type 2, CAD, COPD, DVT, GERD, hyperlipidemia, mentally incapacitated, chronic kidney disease stage IV, right lobectomy for lung cancer, abdominal wall hernia, Social history: Legal guardian Marianela Syed. Past history of alcohol dependence. Has 2 roommates. Has a caregiver. Family history: Cancer Physical examination: VITAL SIGNS: 98.3, 62, 20, 124/59, 98% on 2 L GENERAL: Reclining in bed, comfortable EYES: Pupils equal. Conjunctiva normal. HEENT: External appearance of nose and ears normal, oral cavity dry mucous membranes. Heart appearing NECK: JVD not raised; masses not palpable. HEART: First and second heart sounds are normal; no edema. LUNGS: Respiratory rate normal; clear to auscultation. ABDOMEN: Soft, no tenderness, no guarding rigidity abdominal wall hernia nontender, liver spleen not palpable, no masses palpable. PSYCH: Answering questions appropriately MUSCULOSKELETAL:No Clubbing/cyanosis;muscles-grossly intact. OA INVESTIGATIONS, reviewed in the clinical context: June 08: Sodium 135 potassium 5.2 creatinine 1.2 June 07: White count 8.2 hemoglobin 10.7 potassium 5.2 creatinine 1.2 June 02: White count 12.5 hemoglobin 13.2 sodium 120 potassium 5.3 BUN 61 creatinine 2.06 glucose 387 Gallbladder ultrasound: Small mobile stones. No pericholecystic fluid. No gallbladder wall thickening. Computed tomography scan abdomen pelvis: No evidence of acute process. Gallstones. Colonic diverticulosis. Serum acetone: Negative June 01: White count 16.1 hemoglobin 14.3 platelets 258 sodium 124 potassium 5.4 BUN 47 creatinine 1.37 blood glucose 535 lactic acid 2.2 Troponin I 0.026, 0.037, 0.044 EKG tracing personally reviewed by me-normal sinus rhythm. Chest x-ray film personally reviewed by me-possible infiltrates Urine culture: Klebsiella Pneumoniae, E. coli. Previous labs: Creatinine 0.851 01/2022 Assessment and plan: -Acute abdominal pain. 3-4 days, prior to presentation. Along with nausea vomiting. Some chills. Elevated white count. Unable to keep anything down. Tenderness in the right lower quadrant.: Possible right-sided low-grade colitis: Improving IV Levaquin and Flagyl-completed course Being followed by surgery. Computed tomography scan of the abdomen : Nothing acute Gallbladder ultrasound: Small mobile stones. Tolerating regular diet -Gallstones, asymptomatic -Acute UTI with cystitis from klebsiella pneumoniae and E. coli. Completed course of antibiotic -Acute kidney injury possibly combination of prerenal and ATN. : Better IV fluids. Follow renal function Nephrology following -Hyponatremia, hypovolemia normal osmolality: Much improved Fluid restriction 2000 mL a day. -Metabolic acidosis from renal failure: Better IV bicarbonate drip was given -Morbid obesity BMI 49.6 Weight loss measures -Chronice constipation has a bowel movement normally once a day. -Diabetes mellitus type 2 on insulin, uncontrolled with hyperglycemia [patient takes 2 different tests of insulin at home] Follow Accu-Cheks with sliding scale Levemir 16 units daily at bedtime. -Depression and anxiety Abilify 10 mg a day. Cymbalta 60 mg twice a day. -Essential hypertension, blood pressure in the lower side Norvasc cutback to 2.5 mg a day Cutback Lopressor 25 mg twice a day -Constipation Not much output with enema. Give magnesium citrate -Hyperuricemia Allopurinol 100 mg a day -GERD Protonix 20 mg daily -Chronic urinary stress incontinence Oxybutynin 15 mg a day, Myrbetriq 25 mg a day -Chronic arthritis with pain Milano 10 1 tablet every 6 when necessary -Chronic hard of hearing -Chronic medical debility. At her baseline uses a walker -Legal guardian: Marianela Syed Disposition: Home with home care Plan - Discharge Summary Discharge Rx Participant: Yes New Discharge Prescriptions: New Nystatin 100,000 Unit/gm Powd [Mycostatin Powder] 1 gram TOPICAL TID #60 each amLODIPine [Norvasc] 2.5 mg PO DAILY #30 tab Acetaminophen Tab [Tylenol] 650 mg PO Q6HR PRN tab PRN Reason: Mild Pain Or Fever > 100.5 Continue Aspirin 81 mg PO DAILY #30 chew Atorvastatin [Lipitor] 40 mg PO HS ARIPiprazole [Abilify] 10 mg PO DAILY allopurinoL [Zyloprim] 100 mg PO DAILY Folic Acid 1 mg PO DAILY #30 tablet Thiamine [Vitamin B-1] 100 mg PO DAILY #30 tablet Ergocalciferol [Vitamin D2 (1250 Mcg = 56085 Iu)] 1,250 mcg PO Q7D Pantoprazole Sodium [Protonix] 20 mg PO DAILY Oxybutynin ER [Ditropan XL] 15 mg PO DAILY Omeprazole [PriLOSEC] 20 mg PO DAILY Ferrous Sulfate [Iron (65 MG Elemental)] 325 mg PO DAILY Multivit-Min/FA/Lycopen/Lutein [Centrum Silver Tablet] 1 tab PO DAILY DULoxetine HCL [Cymbalta] 60 mg PO BID traZODone HCL 50 mg PO HS Mirabegron [Myrbetriq] 25 mg PO DAILY Metoprolol Tartrate [Lopressor] 37.5 mg PO BID Loperamide [Imodium] 2 - 4 mg PO QID PRN PRN Reason: Diarrhea HYDROcodone/APAP 10-325MG [Milano 10-325] 1 tab PO Q6HR PRN PRN Reason: Pain Discontinued Losartan [Cozaar] 25 mg PO DAILY Loratadine [Claritin] 10 mg PO DAILY Potassium Chloride [Klor-Con M20] 20 meq PO DAILY Furosemide [Lasix] 20 mg PO BID amLODIPine [Norvasc] 5 mg PO DAILY Sodium Chloride Tab 1 gm PO DAILY tab Doxycycline Monohydrate 100 mg PO BID Discharge Medication List Aspirin 81 mg PO DAILY #30 chew 11/16/16 [Rx] Atorvastatin [Lipitor] 40 mg PO HS 11/13/17 [History] ARIPiprazole [Abilify] 10 mg PO DAILY 07/22/21 [History] DULoxetine HCL [Cymbalta] 60 mg PO BID 07/22/21 [History] Mirabegron [Myrbetriq] 25 mg PO DAILY 07/22/21 [History] traZODone HCL 50 mg PO HS 07/22/21 [History] allopurinoL [Zyloprim] 100 mg PO DAILY 01/26/22 [History] Folic Acid 1 mg PO DAILY #30 tablet 02/03/22 [Rx] Thiamine [Vitamin B-1] 100 mg PO DAILY #30 tablet 02/03/22 [Rx] Ergocalciferol [Vitamin D2 (1250 Mcg = 47656 Iu)] 1,250 mcg PO Q7D 06/01/23 [History] Ferrous Sulfate [Iron (65 MG Elemental)] 325 mg PO DAILY 06/01/23 [History] HYDROcodone/APAP 10-325MG [Milano 10-325] 1 tab PO Q6HR PRN 06/01/23 [History] Loperamide [Imodium] 2 - 4 mg PO QID PRN 06/01/23 [History] Metoprolol Tartrate [Lopressor] 37.5 mg PO BID 06/01/23 [History] Multivit-Min/FA/Lycopen/Lutein [Centrum Silver Tablet] 1 tab PO DAILY 06/01/23 [History] Omeprazole [PriLOSEC] 20 mg PO DAILY 06/01/23 [History] Oxybutynin ER [Ditropan XL] 15 mg PO DAILY 06/01/23 [History] Pantoprazole Sodium [Protonix] 20 mg PO DAILY 06/01/23 [History] Acetaminophen Tab [Tylenol] 650 mg PO Q6HR PRN tab 06/09/23 [Rx] Nystatin 100,000 Unit/gm Powd [Mycostatin Powder] 1 gram TOPICAL TID #60 each 06/09/23 [Rx] amLODIPine [Norvasc] 2.5 mg PO DAILY #30 tab 06/09/23 [Rx] Follow up Appointment(s)/Referral(s): Singh Blancas MD [Medical Doctor] - 06/17/23 10:20 am Collin Waller MD [Primary Care Provider] - 1-2 days Starr Ervin MD [STAFF PHYSICIAN] - 06/30/23 3:30 pm (gastro-enterologist ) Patient Instructions/Handouts: Chest Pain (DC), Constipation (DC), Acute Kidney Injury (DC), Urinary Tract Infection in Women (DC) Activity/Diet/Wound Care/Special Instructions: we recommend to do EGD as an outpatient for thickened esophagus fluid restrict 1800 cc/day Discharge Disposition: HOME SELF-CARE
--- NOTE | 2023-06-11 19:04 | CDI ---
Documentation Clarification Form Date: 06/11/2023 From: Abigail Gallegos Admit Date: 06/01/2023 01:25:00 PM Patient Name: Colleen Plata Visit Number: [id number] Discharge Date: 06/09/2023 03:34:00 PM ATTENTION: The Clinical Documentation Specialists (CDI) and [facility] Coding Staff appreciate your assistance in clarifying documentation. Please respond to the clarification below the line at the bottom and electronically sign. The CDI & [facility] Coding staff will review the response and follow-up if needed. Please note: Queries are made part of the Legal Health Record. If you have any questions, please contact the author of this message via ITS. Dr. Augustus Jackson The patient has UTI, leukocytosis, elevated heart rate and elevated lactic acid on admission. Based on this information and the findings below, is there an additional diagnosis that is clinically appropriate for this patient? History/Risk Factors: Per the H&P the pt has a h/o urinary incontinence and morbid obesity. Clinical Indicators: Per the H&P, the pt reported chills, presented with a UTI, acute renal failure, metabolic acidosis from renal failure. DC summary 06/09 noted Possible right-sided low-grade colitis: Improving, IV Levaquin and Flagyl completed course, Acute UTI with cystitis from klebsiella pneumoniae and E. Coli. WBC: 06/01 16.1, 06/02 12.5, 06/04 8.84 Lactic acid 06/01: 2.2-1.6 UA 06/01: yellow, slightly cloudy, 1+ protein, 4+ glucose, trace blood, large leuk esterase, 57 WBC, rare amorphous sediment, many bacteria Urine culture 06/01: Klebsiella pneumoniae, E. Coli Vitals signs: 05/31 @ 2301 temp 98.2, 118, RR 20, 163/93, Spo2 98% on RA Treatment: Levaquin IV, IV fluid, IV Bicarb gtt, Flagyl IV Is there an additional diagnosis that is clinically appropriate for this patient? [ + ] Sepsis 2nd to Klebsiella pneumoniae and E. Coli UTI w/ cystitis [ ] Sepsis 2nd to mild infectious colitis [ ] Sepsis 2nd to other infection (please specify) [ ] No sepsis noted, no additional diagnosis [ ] Other, please specify [ ] Unable to determine SIRS Criteria: 2 or more of the following may indicate SIRS Temperature < 96.8F (36C) or > 101.0F (38.3C) Heart Rate > 90 bpm Respiratory Rate > 20 breaths/min or PaCO2 < 32 mmHg White Blood Cell Count > 12,000 or < 4,000 cells/mm3 or > 10% bands (Template Last Reviewed: August 2022) MTDD
== END 2023-06-09 15:34 | disposition home or self-care (01) | DRG 871 ==
LOC: EC 23:00 → 6NMEDSUR 06-01 03:09 → OBSVTOIN 06-01 13:25 → 5NMEDONC 06-01 14:09 → 4SSUR 06-01 21:49
PROVIDERS: ADMIT Hospitalist; ATTEND Hospitalist
DX: A41.59 Other Gram-negative sepsis (principal); N17.0 Acute kidney failure with tubular necrosis; E87.1 Hypo-osmolality and hyponatremia; E87.20 Acidosis, unspecified; N30.01 Acute cystitis with hematuria; Z68.42 Body mass index [BMI] 45.0-49.9, adult; N18.4 Chronic kidney disease, stage 4 (severe); K52.9 Noninfective gastroenteritis and colitis, unspecified; E11.22 Type 2 diabetes mellitus with diabetic chronic kidney disease; B96.1 Klebsiella pneumoniae [K. pneumoniae] as the cause of diseases classified elsewhere; E11.65 Type 2 diabetes mellitus with hyperglycemia; E66.01 Morbid (severe) obesity due to excess calories; F10.21 Alcohol dependence, in remission; F31.9 Bipolar disorder, unspecified; B96.20 Unspecified Escherichia coli [E. coli] as the cause of diseases classified elsewhere; Z79.4 Long term (current) use of insulin; K80.20 Calculus of gallbladder without cholecystitis without obstruction; I12.9 Hypertensive chronic kidney disease with stage 1 through stage 4 chronic kidney disease, or unspecified chronic kidney disease; E87.5 Hyperkalemia; E86.1 Hypovolemia; J44.89 Other specified chronic obstructive pulmonary disease; E78.5 Hyperlipidemia, unspecified; F41.9 Anxiety disorder, unspecified; K57.30 Diverticulosis of large intestine without perforation or abscess without bleeding; K21.00 Gastro-esophageal reflux disease with esophagitis, without bleeding; I25.10 Atherosclerotic heart disease of native coronary artery without angina pectoris; N39.3 Stress incontinence (female) (male); K43.9 Ventral hernia without obstruction or gangrene; I25.2 Old myocardial infarction; R26.9 Unspecified abnormalities of gait and mobility; M19.90 Unspecified osteoarthritis, unspecified site; H91.90 Unspecified hearing loss, unspecified ear; R80.9 Proteinuria, unspecified; E79.0 Hyperuricemia without signs of inflammatory arthritis and tophaceous disease; K59.09 Other constipation; F79 Unspecified intellectual disabilities; Z79.82 Long term (current) use of aspirin; Z79.899 Other long term (current) drug therapy; Z86.19 Personal history of other infectious and parasitic diseases; Z95.5 Presence of coronary angioplasty implant and graft; Z85.118 Personal history of other malignant neoplasm of bronchus and lung; Z86.718 Personal history of other venous thrombosis and embolism; Z71.3 Dietary counseling and surveillance; Z88.1 Allergy status to other antibiotic agents
CPT/HCPCS: 36415; 71046; 74019; 74176; 76705; 78226; 80048; 80053; 81001; 82009; 82150; 82533; 83605; 83690; 83735; 83930; 83935; 84145; 84295; 84300; 84439; 84443; 84484; 85025; 85610; 85730; 87077; 87086; 87186; 93005; 93306; 94760; 96361; 96365; 96366; 96375; 96376; 99285

== ENCOUNTER 2023-06-15 18:21 | Inpatient (IN) | payer MEDICARE, OTHER ==
--- NOTE | 2023-06-15 18:43 | ED ---
General Adult HPI - General Chief complaint: Weakness Stated complaint: weakness Time Seen by Provider: 06/15/23 18:28 Source: patient, EMS, RN notes reviewed Mode of arrival: EMS Limitations: no limitations - History of Present Illness Initial comments: Patient is a pleasant 73-year-old female presents emergency department with weakness. Onset of symptoms was last couple of days. Patient did have a fall. Patient did strike her head. No loss of consciousness or confusion. No neck or back pain. Patient feels weak all over. Patient was in the hospital a week ago and Lasix was discontinued. Patient is having increasing leg edema with leg bullae. Patient states she is no longer able to walk. - Related Data Home Medications Medication Instructions Recorded Confirmed Atorvastatin [Lipitor] 40 mg PO HS 11/13/17 06/15/23 ARIPiprazole [Abilify] 10 mg PO DAILY 07/22/21 06/15/23 DULoxetine HCL [Cymbalta] 60 mg PO BID 07/22/21 06/15/23 Mirabegron [Myrbetriq] 25 mg PO DAILY 07/22/21 06/15/23 traZODone HCL 50 mg PO HS 07/22/21 06/15/23 allopurinoL [Zyloprim] 100 mg PO DAILY 01/26/22 06/15/23 Ergocalciferol [Vitamin D2 (1250 1,250 mcg PO Q7D 06/01/23 06/15/23 Mcg = 23547 Iu)] Ferrous Sulfate [Iron (65 MG 325 mg PO DAILY 06/01/23 06/15/23 Elemental)] HYDROcodone/APAP 10-325MG [[place] 1 tab PO Q6HR PRN 06/01/23 06/15/23 10-325] Loperamide [Imodium] 2 - 4 mg PO QID PRN 06/01/23 06/15/23 Metoprolol Tartrate [Lopressor] 37.5 mg PO BID 06/01/23 06/15/23 Multivit-Min/FA/Lycopen/Lutein 1 tab PO DAILY 06/01/23 06/15/23 [Centrum Silver Tablet] Omeprazole [PriLOSEC] 20 mg PO DAILY 06/01/23 06/15/23 Oxybutynin ER [Ditropan XL] 15 mg PO DAILY 06/01/23 06/15/23 Pantoprazole Sodium [Protonix] 20 mg PO DAILY 06/01/23 06/15/23 Insulin Aspart [NovoLOG Flexpen] See Protocol SQ AC-TID 06/15/23 06/15/23 Insulin Glargine,Hum.rec.anlog 12 unit SQ HS 06/15/23 06/15/23 [Basaglar Kwikpen U-100] Nystatin 100,000 Unit/gm Powd 1 applic TOPICAL TID 06/15/23 06/15/23 [Mycostatin Powder] Previous Rx's Medication Instructions Recorded Aspirin 81 mg PO DAILY #30 chew 11/16/16 Folic Acid 1 mg PO DAILY #30 tablet 02/03/22 Thiamine [Vitamin B-1] 100 mg PO DAILY #30 tablet 02/03/22 Acetaminophen Tab [Tylenol] 650 mg PO Q6HR PRN tab 06/09/23 amLODIPine [Norvasc] 2.5 mg PO DAILY #30 tab 06/09/23 Allergies Allergy/AdvReac Type Severity Reaction Status Date / Time cephalexin monohydrate Allergy Itching. Verified 06/15/23 22:16 [From Keflex] SWELLING Review of Systems ROS Statement: Those systems with pertinent positive or pertinent negative responses have been documented in the HPI. ROS Other: All systems not noted in ROS Statement are negative. Constitutional: Denies: fever Eyes: Denies: eye pain ENT: Denies: ear pain Respiratory: Denies: dyspnea Cardiovascular: Denies: chest pain Endocrine: Reports: fatigue Gastrointestinal: Denies: abdominal pain Neurological: Reports: as per HPI, weakness. Denies: headache, confusion Past Medical History Past Medical History: Asthma, Coronary Artery Disease (CAD), Cancer, Chest Pain / Angina, COPD, Diabetes Mellitus, Deep Vein Thrombosis (DVT), GERD/Reflux, Hyperlipidemia, Hypertension, Myocardial Infarction (GA), Osteoarthritis (OA) Additional Past Medical History / Comment(s): mentally incapacitated per guardian, morbid obesity, Chronic kidney disease stage IV, chronic bronchitis, lobectomy for lung cancer, abdominal wall hernia R side, generalized weakness, gait dysfunction, falls, DJD T12 and L1, urine incontinence at times. The patient lives w/her guardian Marianela Syed who is new to this role so wasn't able to confirm health hx., gets bubble pack of meds set up by Visiting Physician- takes own meds per guardian Last Myocardial Infarction Date:: 01/20/09 History of Any Multi-Drug Resistant Organisms: VRE Date of last positivie culture/infection: 11/13/17 MDRO Source:: VRE URINE Past Surgical History: Section, Heart Catheterization, Heart Elisa terization With Stent, Orthopedic Surgery Additional Past Surgical History / Comment(s): Lung lobectomy, ORIF RIGHT ULNA/RADIUS, left rotator cuff repair, cataract removals, heel surgery r/t infection (laterality unknown), colonoscopies/ benign polypectomy, PCI/ stent x2, guardian unable to confirm Past Anesthesia/Blood Transfusion Reactions: No Reported Reaction Date of Last Stent Placement:: 11/2016 Past Psychological History: Anxiety, Bipolar, Depression Smoking Status: Never smoker Past Alcohol Use History: None Reported Past Drug Use History: None Reported - Past Family History Brother(s) Family Medical History: Cancer General Exam Limitations: no limitations General appearance: alert, in no apparent distress Head exam: Present: other (Ecchymosis left for) Eye exam: Present: normal appearance ENT exam: Present: mucous membranes dry Neck exam: Present: normal inspection. Absent: tenderness Respiratory exam: Present: normal lung sounds bilaterally Cardiovascular Exam: Present: regular rate, normal rhythm GI/Abdominal exam: Present: soft. Absent: tenderness Extremities exam: Present: pedal edema (+4 bilateral with some bullae forming). Absent: calf tenderness Neurological exam: Present: alert Expanded Neurological exam: Present: protecting the airway Speech: Present: fluid speech Motor strength exam: RUE: 5, LUE: 5, RLE: 2/1, LLE: 2/1 Eye Response: (4) open spontaneously Motor Response: (6) obeys commands Verbal Response: (5) oriented Psychiatric exam: Present: normal affect, normal mood Skin exam: Present: normal color Course Vital Signs 06/15/23 06/15/23 06/15/23 18:23 18:31 20:01 Temperature 98.7 F Pulse Rate 90 98 Pulse Rate [ 90 Radial] Respiratory 18 18 Rate Blood Pressure 143/83 129/77 O2 Sat by Pulse 96 96 Oximetry 06/15/23 22:00 Temperature 98.1 F Pulse Rate 84 Pulse Rate [ Radial] Respiratory 18 Rate Blood Pressure 138/70 O2 Sat by Pulse 96 Oximetry EKG Findings - EKG Results: EKG: interpreted by DEMID (Left axis), sinus rhythm, normal QRS, normal ST/T Medical Decision Making - Medical Decision Making Was pt. sent in by a medical professional or institution (, JOSE, COMMUTATOR TESTER, urgent care, hospital, or detention...) When possible be specific @ -No Did you speak to anyone other than the patient for history (EMS, parent, family, police, friend...)? What history was obtained from this source @ -No Did you review nursing and triage notes (agree or disagree)? Why? @ -I reviewed and agree with nursing and triage notes Were old charts reviewed (outside hosp., previous admission, EMS record, old EKG, old radiological studies, urgent care reports/EKG's, detention records)? Report findings @ -Sent discharge summary review Differential Diagnosis (chest pain, altered mental status, abdominal pain women, abdominal pain men, vaginal bleeding, weakness, fever, dyspnea, syncope, headache, dizziness, GI bleed, back pain, seizure, CVA, palpatations, mental health, musculoskeletal)? @ -Differential Weakness: Hypoglycemia, shock, sepsis, hyponatremia, anemia, infection, GA, ETOH, adverse medicine reaction, overdose, stroke, this is not meant to be an all-inclusive list. EKG interpreted by me (3pts min.). @ -As above X-rays interpreted by me (1pt min.). @ -X-ray left hand shows no acute process. Chest x-ray shows cardiomegaly and some pulmonary edema CT interpreted by me (1pt min.). @ -Report reviewed U/S interpreted by me (1pt. min.). @ -None done What testing was considered but not performed or refused? (CT, X-rays, U/S, labs)? Why? @ -None What meds were considered but not given or refused? Why? @ -None Did you discuss the management of the patient with other professionals (professionals i.e. JOSE Friend, COMMUTATOR TESTER, lab, RT, psych nurse, hospital social worker, supervisor hide house, teacher, correctional officer, rn case manager hospice)? Give summary @ -Case was discussed with Dr. Jackson, who will admit for suzette Was smoking cessation discussed for >3mins.? @ -No Was critical care preformed (if so, how long)? @ -No Were there social determinants of health that impacted care today? How? (Homelessness, low income, unemployed, alcoholism, drug addiction, transport ation, low edu. Level, literacy, decrease access to med. care, senior living, rehab)? @ -No Was there de-escalation of care discussed even if they declined (Discuss DNR or withdrawal of care, Hospice)? DNR status @ -No What co-morbidities impacted this encounter? (DM, HTN, Smoking, COPD, CAD, Cancer, CVA, ARF, Chemo, Hep., AIDS, mental health diagnosis, sleep apnea, morbid obesity)? @ -None Was patient admitted / discharged? Hospital course, mention meds given and route, prescriptions, significant lab abnormalities, going to OR and other pertinent info. @ -Patient reevaluated and resting comfortably in bed. Patient is updated on results and plan. Patient will be admitted with diuresis. I cardiology will be placed on consult. Patient may end up needing placement. Undiagnosed new problem with uncertain prognosis? @ -No Drug Therapy requiring intensive monitoring for toxicity (Heparin, Nitro, Insulin, Cardizem)? @ -No Were any procedures done? @ -No Diagnosis/symptom? @ -CHF, weakness Acute, or Chronic, or Acute on Chronic? @ -Acute, acute Uncomplicated (without systemic symptoms) or Complicated (systemic symptoms)? @ -default Side effects of treatment? @ -No Exacerbation, Progression, or Severe Exacerbation? @ -No Poses a threat to life or bodily function? How? (Chest pain, USA, GA, pneumonia, PE, COPD, DKA, ARF, appy, cholecystitis, CVA, Diverticulitis, Homicidal, Suicidal, threat to staff... and all critical care pts) @ -No - Lab Data Result diagrams: 06/15/23 18:51 06/15/23 18:51 Lab Results 06/15/23 06/15/23 06/15/23 Range/Units 18:51 18:51 18:51 WBC 6.0 (3.8-10.6) k/uL RBC 3.73 L (3.80-5.40) m/uL Hgb 11.7 (11.4-16.0) gm/dL Hct 35.1 (34.0-46.0) % MCV 94.1 (80.0-100.0) fL MCH 31.2 (25.0-35.0) pg MCHC 33.2 (31.0-37.0) g/dL RDW 13.8 (11.5-15.5) % Plt Count 164 (150-450) k/uL MPV 7.8 Neutrophils % 78 % Lymphocytes % 13 % Monocytes % 6 % Eosinophils % 2 % Basophils % 0 % Neutrophils # 4.7 (1.3-7.7) k/uL Lymphocytes # 0.8 L (1.0-4.8) k/uL Monocytes # 0.3 (0-1.0) k/uL Eosinophils # 0.1 (0-0.7) k/uL Basophils # 0.0 (0-0.2) k/uL PT 10.2 (10.0-12.5) sec INR 0.9 (<1.2) APTT 20.6 L (22.0-30.0) sec Sodium 130 L (137-145) mmol/L Potassium 3.7 (3.5-5.1) mmol/L Chloride 94 L (98-107) mmol/L Carbon Dioxide 27 (22-30) mmol/L Anion Gap 9 mmol/L BUN 14 (7-17) mg/dL Creatinine 1.01 (0.52-1.04) mg/dL Est GFR (CKD-EPI)AfAm 64 (>60 ml/min/1.73 sqM) Est GFR (CKD-EPI)NonAf 55 (>60 ml/min/1.73 sqM) Glucose 206 H (74-99) mg/dL Plasma Lactic Acid Orion (0.7-2.0) mmol/L Calcium 8.4 (8.4-10.2) mg/dL Magnesium 1.3 L (1.6-2.3) mg/dL Total Bilirubin 0.6 (0.2-1.3) mg/dL AST 27 (14-36) U/L ALT 23 (4-34) U/L Alkaline Phosphatase 109 (38-126) U/L Troponin I (0.000-0.034) ng/mL NT-Pro-B Natriuret Pep 513 pg/mL Total Protein 6.1 L (6.3-8.2) g/dL Albumin 3.6 (3.5-5.0) g/dL Urine Color Urine Appearance (Clear) Urine pH (5.0-8.0) Ur Specific [place] (1.001-1.035) Urine Protein (Negative) Urine Glucose (UA) (Negative) Urine Ketones (Negative) Urine Blood (Negative) Urine Nitrite (Negative) Urine Bilirubin (Negative) Urine Urobilinogen (<2.0) mg/dL Ur Leukocyte Esterase (Negative) 06/15/23 06/15/23 06/15/23 Range/Units 18:51 18:51 21:32 WBC (3.8-10.6) k/uL RBC (3.80-5.40) m/uL Hgb (11.4-16.0) gm/dL Hct (34.0-46.0) % MCV (80.0-100.0) fL MCH (25.0-35.0) pg MCHC (31.0-37.0) g/dL RDW (11.5-15.5) % Plt Count (150-450) k/uL MPV Neutrophils % % Lymphocytes % % Monocytes % % Eosinophils % % Basophils % % Neutrophils # (1.3-7.7) k/uL Lymphocytes # (1.0-4.8) k/uL Monocytes # (0-1.0) k/uL Eosinophils # (0-0.7) k/uL Basophils # (0-0.2) k/uL PT (10.0-12.5) sec INR (<1.2) APTT (22.0-30.0) sec Sodium (137-145) mmol/L Potassium (3.5-5.1) mmol/L Chloride (98-107) mmol/L Carbon Dioxide (22-30) mmol/L Anion Gap mmol/L BUN (7-17) mg/dL Creatinine (0.52-1.04) mg/dL Est GFR (CKD-EPI)AfAm (>60 ml/min/1.73 sqM) Est GFR (CKD-EPI)NonAf (>60 ml/min/1.73 sqM) Glucose (74-99) mg/dL Plasma Lactic Acid Orion 1.3 (0.7-2.0) mmol/L Calcium (8.4-10.2) mg/dL Magnesium (1.6-2.3) mg/dL Total Bilirubin (0.2-1.3) mg/dL AST (14-36) U/L ALT (4-34) U/L Alkaline Phosphatase (38-126) U/L Troponin I <0.012 (0.000-0.034) ng/mL NT-Pro-B Natriuret Pep pg/mL Total Protein (6.3-8.2) g/dL Albumin (3.5-5.0) g/dL Urine Color Colorless Urine Appearance Clear (Clear) Urine pH 6.5 (5.0-8.0) Ur Specific [place] 1.005 (1.001-1.035) Urine Protein Negative (Negative) Urine Glucose (UA) Trace H (Negative) Urine Ketones Negative (Negative) Urine Blood Negative (Negative) Urine Nitrite Negative (Negative) Urine Bilirubin Negative (Negative) Urine Urobilinogen <2.0 (<2.0) mg/dL Ur Leukocyte Esterase Negative (Negative) Disposition Clinical Impression: CHF (congestive heart failure), Weakness Disposition: ADMITTED IP TO THIS [facility] Is patient prescribed a controlled substance at d/c from ED?: No Referrals: Collin Waller MD [Primary Care Provider] - 1-2 days Time of Disposition: 22:27
[2023-06-15 19:03] LABS: Basophils % (A) 0 %; Eosinophils # (A) 0.1 k/uL (0-0.7); Eosinophils % (A) 2 %; HCT 35.1 % (34.0-46.0); HGB 11.7 gm/dL (11.4-16.0); Lymphocytes # (A) 0.8 k/uL (1.0-4.8); Lymphocytes % (A) 13 %; MCH 31.2 pg (25.0-35.0); MCHC 33.2 g/dL (31.0-37.0); MCV 94.1 fL (80.0-100.0); Mean Platelet Volume 7.8; Monocytes # (A) 0.3 k/uL (0-1.0); Monocytes % (A) 6 %; Neutrophils # (A) 4.7 k/uL (1.3-7.7); Neutrophils % (A) 78 %; Platelet Count 164 k/uL (150-450); RBC 3.73 m/uL (3.80-5.40); RDW 13.8 % (11.5-15.5)
[2023-06-15 19:12] LABS: ALT 23 U/L (4-34); AST 27 U/L (14-36); African American GFR (CKD) 64 (>60 ml/min/1.73 sqM); Albumin 3.6 g/dL (3.5-5.0); Alkaline Phosphatase 109 U/L (38-126); Anion Gap 9 mmol/L; Blood Urea Nitrogen 14 mg/dL (7-17); Calcium 8.4 mg/dL (8.4-10.2); Carbon Dioxide 27 mmol/L (22-30); Chloride 94 mmol/L (98-107); Glucose 206 mg/dL (74-99); Magnesium 1.3 mg/dL (1.6-2.3); Non-African American GFR(CKD) 55 (>60 ml/min/1.73 sqM); Potassium 3.7 mmol/L (3.5-5.1); Sodium 130 mmol/L (137-145); Total Bilirubin 0.6 mg/dL (0.2-1.3); Total Protein 6.1 g/dL (6.3-8.2)
[2023-06-15 19:20] LABS: NT-Pro-B-Type Natriuretic Pept 513 pg/mL
[2023-06-15 19:33] LABS: INR 0.9 (<1.2); Prothrombin Time 10.2 sec (10.0-12.5)
[2023-06-15 19:38] LABS: Partial Thromboplastin Time 20.6 sec (22.0-30.0)
--- NOTE | 2023-06-15 19:49 | XR ---
EXAMINATION TYPE: XR hand complete LT DATE OF EXAM: 06/15/2023 7:33 PM CLINICAL INDICATION:Female, 73 years old with history of fall; COMPARISON: None TECHNIQUE: XR hand complete LT Frontal, lateral and oblique views were obtained. FINDINGS: Normal alignment of the visualized joints. No acute osseous pathology is identified. No e vidence of soft tissue swelling. Multifocal degeneration changes with joint space narrowing and osteo phyte formation. IMPRESSION: 1. No acute osseous pathology. 2. Multifocal osteoarthrosis changes.
--- NOTE | 2023-06-15 19:54 | XR ---
EXAMINATION TYPE: XR chest 2V DATE OF EXAM: 06/15/2023 7:33 PM CLINICAL INDICATION:Female, 73 years old with history of Weakness; PHH COMPARISON: Chest radiographs from 06/01/2023 TECHNIQUE: XR chest 2V Frontal and lateral views of the chest. FINDINGS: Lungs/Pleura: There is no evidence of pleural effusion, focal consolidation, or pneumothorax. Pulmonary vascularity: Pulmonary vascular congestion. Heart/mediastinum: Cardiomediastinal silhouette is enlarged and stable. Musculoskeletal: No acute osseous pathology. IMPRESSION: Cardiomegaly and mild pulmonary vascular congestion. Correlate with BNP for congestive heart failure.
--- NOTE | 2023-06-15 19:54 | CT ---
EXAMINATION TYPE: CT brain wo con CT DLP: 1114.4 mGycm, Automated exposure control for dose reduction was used. DATE OF EXAM: 06/15/2023 7:25 PM COMPARISON: 01/25/2022. CLINICAL INDICATION:Female, 73 years old with history of weakness, Weakness, multiple falls. TECHNIQUE: Brain: Axial CT images of the brain were obtained with coronal and sagittal reformats created and rev iewed. Contrast used: None. Oral contrast used: None. FINDINGS: Brain: Motion limited exam. Extra-axial spaces: No abnormal extra-axial fluid collections. Ventricular system: Within normal limits Cerebral parenchyma: No acute intraparenchymal hemorrhage or mass effect. The millan-white junction is well differentiated. Cerebellum: Unremarkable. Mass effect: No evidence of midline shift. Intracranial vasculature: unremarkable Soft tissues: Normal. Calvarium/osseous structures: No depressed skull fracture. Paranasal sinuses and mastoid air cells: Mild scattered paranasal sinus disease. Visualized orbits: Bilateral aphakia. Postprocedural changes to the right globe IMPRESSION: Motion limited exam, No acute intracranial process.
[2023-06-15 22:21] LABS: Appearance,Urine Clear (Clear); Bilirubin,Urine Negative (Negative); Blood,Urine Negative (Negative); Color,Urine Colorless; Glucose,Urine (UA) Trace (Negative); Ketones,Urine Negative (Negative); Leukocyte Esterase,Urine Negative (Negative); Nitrite,Urine Negative (Negative); PH, Urine 6.5 (5.0-8.0); Protein,Urine Negative (Negative); Specific Gravity,Urine 1.005 (1.001-1.035); Urobilinogen,Urine <2.0 mg/dL (<2.0)
[2023-06-15] MEDS ORDERED: ASPIRIN 325 MG TAB PO STA (22:27)
[2023-06-15] MEDS: FUROSEMIDE 10 MG/ML 4 ML VIAL IV SCH (23:02)
[2023-06-16] MEDS: NITROGLYCERIN OINT 1 INCH/GM PACKET TOPICAL SCH ×4 (00:04→17:13)
[2023-06-16] MEDS: FUROSEMIDE 10 MG/ML 4 ML VIAL IV SCH ×3 (06:49→21:21)
[2023-06-16] MEDS: FERROUS SULFATE 325 MG TAB PO SCH (08:38)
[2023-06-16] MEDS: ASPIRIN 325 MG TAB PO SCH (08:39)
[2023-06-16] MEDS: THIAMINE 100 MG TAB PO SCH (08:39)
[2023-06-16] MEDS: PANTOPRAZOLE 40 MG TABLET PO SCH (08:40)
[2023-06-16] MEDS: DULoxetine HCL 60 MG CAPSULE.DR PO SCH ×2 (08:40→21:21)
[2023-06-16] MEDS: allopurinoL 100 MG TAB PO SCH (08:41)
[2023-06-16] MEDS: OXYBUTYNIN 15 MG TAB.ER.24 PO SCH (08:41)
[2023-06-16] MEDS: FOLIC ACID 1 MG TAB PO SCH (08:41)
[2023-06-16] MEDS: amLODIPine 2.5 MG TAB PO SCH (08:41)
[2023-06-16] MEDS: ARIPiprazole 10 MG TAB PO SCH (08:41)
[2023-06-16] MEDS: NON FORMULARY DRUG (Mirabegron [Myrbetriq] 25 MG Tablet) PO SCH (08:42)
[2023-06-16] MEDS ORDERED: NON FORMULARY DRUG (Pantoprazole Sodium [Protonix] 20 MG Tablet) PO SCH (09:00)
[2023-06-16] MEDS ORDERED: METOPROLOL TARTRATE 25 MG TAB PO SCH (09:00)
[2023-06-16] MEDS ORDERED: ACETAMINOPHEN TAB 325 MG TAB PO PRN (09:52)
--- NOTE | 2023-06-16 10:13 | CONS ---
CONSULTATION CHIEF COMPLAINT: Shortness of breath. HISTORY OF PRESENT ILLNESS: Colleen is a 73-year-old lady with history of hypertension, insulin-requiring diabetes, dyslipidemia, who is a poor historian, presented to hospital with symptoms of weakness, headache, fatigue, tiredness, and some shortness of breath along the way. The patient was recently in the hospital and her Lasix had been stopped. The patient complains of increasing leg edema and has difficulty walking. She apparently had a fall also. I am not able to obtain much meaningful history from the patient, but she appears comfortable at rest, stable hemodynamically. EKG shows sinus tachycardia without significant ST-T wave changes. Three sets of troponins are negative. BNP is normal at 513. PAST MEDICAL HISTORY: Significant for hypertension, diabetes, and dyslipidemia. The patient had a cardiac catheterization in 2017 that revealed a patent stent within the LAD with diffuse disease in rest of her coronary arteries. A recent echocardiogram showed normal LV systolic function with concentric left ventricular hypertrophy. FAMILY HISTORY: Significant for coronary artery disease. SOCIAL HISTORY: Denies current smoking, EtOH abuse or drug abuse. REVIEW OF SYSTEMS: HEENT: Unremarkable. CARDIAC: As described above. RESPIRATORY: Negative. GI: Negative. GENITOURINARY: Negative. ALLERGY/IMMUNOLOGY: Negative. SKIN: Negative. MUSCULOSKELETAL: Significant for arthritis. PSYCHOSOCIAL: Negative. DERM: Negative. CONSTITUTIONAL: Negative. CLINICAL LAB TECHNOLOGIST: Negative. Rest of the system review is not relevant. PHYSICAL EXAMINATION: GENERAL: She is comfortable at rest. VITAL SIGNS: Afebrile. Heart rate is 85 beats per minute, blood pressure is 120/72, respiratory rate 18, O2 saturation is 97% on room air. NECK: There is no jugular venous distention. Carotid upstroke is diminished. There is no bruit. CHEST: Diminished air entry at the bases. HEART: First and second heart sounds. No gallop. No murmur. ABDOMEN: Soft. EXTREMITIES: Did not reveal bilateral pitting edema. ASSESSMENT: 1. Atypical chest pain, myocardial infarction ruled out. 2. Coronary artery disease, status post prior angioplasty. 3. Chronic diastolic heart failure. 4. Hypertension. PLAN: I will continue the patient on IV Lasix. Continue rest of her medications. Hopefully, we can switch her to p.o. Lasix and discharge her home over the next 24 to 48 hours. MMODL / IJN: [id number] /
[2023-06-16] MEDS: HYDROcodone/APAP 10-325MG 1 EACH TAB PO PRN ×3 (10:27→23:55)
[2023-06-16] MEDS: NYSTATIN 100,000 UNIT/GM POWD 15 GM TOPICAL SCH ×3 (11:12→21:21)
[2023-06-16 16:15] LABS: Glucose,Whole Blood 297 mg/dL (70-110)
[2023-06-16] MEDS: INSULIN ASPART (NovoLOG) 100 UNIT/ML VIAL SQ SCH ×2 (17:18→21:20)
[2023-06-16] MEDS ORDERED: LACTULOSE 20 GM/30 ML CUP PO PRN (19:34)
[2023-06-16] MEDS ORDERED: ONDANSETRON 4 MG/2 ML VIAL IVP PRN (19:34)
[2023-06-16] MEDS ORDERED: NALOXONE 0.4 MG/ML 1 ML VIAL IV PRN (19:34)
[2023-06-16] MEDS ORDERED: ALPRAZolam 0.25 MG TAB PO PRN (19:34)
[2023-06-16] MEDS ORDERED: MELATONIN 3 MG TABLET PO PRN (19:34)
[2023-06-16] MEDS ORDERED: CALCIUM CARBONATE 500 MG CHEWABLE PO PRN (19:34)
--- NOTE | 2023-06-16 19:36 | P.HPIM ---
History of Present Illness H&P Date: 06/16/23 Chief Complaint: Short of breath This is a 73-year-old patient, follows with visiting physicians Dr. Waller. At her baseline patient does use a cane sometimes a walker. Patient was recently discharged from the hospital being from June 01 through June 09. Was admitted with right lower quadrant pain felt to be mild colitis. Also treated for UTI. Constipation. Found over thickened esophagus. Supposed to follow with Dr. Karthik Ervin outpatient. Patient presents with significant weakness. Increasing edema with blisters lower extremity. Short of breath. Patient even fell out of for sulfa because of weakness. No chest pain and palpitation. Denies any fever and chills. No urinary symptoms. Review of systems: GEN.: Tired EYES: None HEENT: Decreased hearing NECK: None RESPIRATORY: None CARDIOVASCULAR: Chest pain] GASTROINTESTINAL: As above GENITOURINARY: Incontinent MUSCULOSKELETAL: Chronic joint pains LYMPHATICS: None HEMATOLOGICAL: None PSYCHIATRY: None NEUROLOGICAL: Does use a cane walker Past medical history to include: Depression, hyperlipidemia, urinary stress incontinence, diabetes mellitus type 2, CAD, COPD, DVT, GERD, hyperlipidemia, mentally incapacitated, chronic kidney disease stage IV, right lobectomy for lung cancer, abdominal wall hernia, Social history: Legal guardian Marianela Syed. Past history of alcohol dependence. Has 2 roommates. Has a caregiver. Uses a walker Family history: Cancer Physical examination: VITAL SIGNS: 98.1, 84, 18, 1 38 x 70, 96% on 2 L GENERAL: BMI 49.6 reclining in bed, tired EYES: Pupils equal. Conjunctiva normal. HEENT: External appearance of nose and ears normal, oral cavity dry mucous membranes. Heart appearing NECK: JVD possibly raised; masses not palpable. HEART: First and second heart sounds are normal; edema present. LUNGS: Respiratory rate increased; decreased breath sounds. ABDOMEN: Soft, non-abdominal tenderness, no guarding rigidity abdominal wall hernia nontender, liver spleen not palpable, no masses palpable. PSYCH: Answering simple questions appropriately MUSCULOSKELETAL:No Clubbing/cyanosis;muscles-grossly intact. OA NEUROLOGICAL: Cranial nerves grossly intact; no facial asymmetry, moving all 4 limbs INVESTIGATIONS, reviewed in the clinical context: June 15: White count 6 hemoglobin 11.7 platelets 164 sodium 1:30 potassium 3.7 BUN 14 creatinine 1.01 Troponin I less than 0.0123 ProBNP 513 EKG tracing personally reviewed by me-mati gold. Sinus rhythm. Chest x-ray film personally reviewed by me-cardiomegaly and some venous prominence. Investigations from June 01 through 06/09/2023 Gallbladder ultrasound: Small mobile stones. No pericholecystic fluid. No gallbladder wall thickening. Computed tomography scan abdomen pelvis: No evidence of acute process. Gallstones. Colonic diverticulosis. Urine culture: Klebsiella Pneumoniae, E. coli. 2-D echocardiogram: Moderate left ventricular wall thickness. EF 55-60%. Mild right ventricle dilatation. Assessment and plan: -Possibly acute congestive heart failure exacerbation from diastolic dysfunction. EF 55-60%. IV Lasix. Telemetry. Cardiology consulted. -Gallstones, asymptomatic -Acute kidney injury possibly combination of prerenal and ATN. : Better IV fluids. Follow renal function Nephrology following -Hyponatremia, Fluid restriction 1500 mL a day. -Morbid obesity BMI 49.6 Weight loss measures -Diabetes mellitus type 2 on insulin, Follow Accu-Cheks with sliding scale Levemir -Depression and anxiety Abilify 10 mg a day. Cymbalta 60 mg twice a day. -Essential hypertension, blood pressure in the lower side Norvasc to 2.5 mg a day. Cutback Lopressor 25 mg twice a day -Hyperuricemia Allopurinol 100 mg a day -GERD Protonix 20 mg daily -Chronic urinary stress incontinence Oxybutynin 15 mg a day, Myrbetriq 25 mg a day -Chronic arthritis with pain [place] 10 1 tablet every 6 when necessary -Chronic hard of hearing -Chronic medical debility. At her baseline uses a walker -Legal guardian: Marianela Syed Discussed with patient. Cardiology consulted. Cutback Lopressor to 25 mg twice a day. Past Medical History Past Medical History: Asthma, Coronary Artery Disease (CAD), Cancer, Chest Pain / Angina, COPD, Diabetes Mellitus, Deep Vein Thrombosis (DVT), GERD/Reflux, Hy perlipidemia, Hypertension, Myocardial Infarction (MS), Osteoarthritis (OA) Additional Past Medical History / Comment(s): mentally incapacitated per guardian, morbid obesity, Chronic kidney disease stage IV, chronic bronchitis, lobectomy for lung cancer, abdominal wall hernia R side, generalized weakness, gait dysfunction, falls, DJD T12 and L1, urine incontinence at times. The patient lives w/her guardian Marianela Syed who is new to this role so wasn't able to confirm health hx., gets bubble pack of meds set up by Visiting Physician- takes own meds per guardian Last Myocardial Infarction Date:: 01/20/09 History of Any Multi-Drug Resistant Organisms: VRE Date of last positivie culture/infection: 11/13/17 MDRO Source:: VRE URINE Past Surgical History: Section, Heart Catheterization, Heart Catheterization With Stent, Orthopedic Surgery Additional Past Surgical History / Comment(s): Lung lobectomy, ORIF RIGHT ULNA/RADIUS, left rotator cuff repair, cataract removals, heel surgery r/t infection (laterality unknown), colonoscopies/ benign polypectomy, PCI/ stent x2, guardian unable to confirm Past Anesthesia/Blood Transfusion Reactions: No Reported Reaction Date of Last Stent Placement:: 11/2016 Past Psychological History: Anxiety, Bipolar, Depression Smoking Status: Never smoker Past Alcohol Use History: None Reported Past Drug Use History: None Reported - Past Family History Brother(s) Family Medical History: Cancer Medications and Allergies Home Medications Medication Instructions Recorded Confirmed Type Aspirin 81 mg PO DAILY #30 chew 11/16/16 06/15/23 Rx Atorvastatin [Lipitor] 40 mg PO HS 11/13/17 06/15/23 History ARIPiprazole [Abilify] 10 mg PO DAILY 07/22/21 06/15/23 History DULoxetine HCL [Cymbalta] 60 mg PO BID 07/22/21 06/15/23 History Mirabegron [Myrbetriq] 25 mg PO DAILY 07/22/21 06/15/23 History traZODone HCL 50 mg PO HS 07/22/21 06/15/23 History allopurinoL [Zyloprim] 100 mg PO DAILY 01/26/22 06/15/23 History Folic Acid 1 mg PO DAILY #30 tablet 02/03/22 06/15/23 Rx Thiamine [Vitamin B-1] 100 mg PO DAILY #30 tablet 02/03/22 06/15/23 Rx Ergocalciferol [Vitamin D2 (1250 1,250 mcg PO Q7D 06/01/23 06/15/23 History Mcg = 15026 Iu)] Ferrous Sulfate [Iron (65 MG 325 mg PO DAILY 06/01/23 06/15/23 History Elemental)] HYDROcodone/APAP 10-325MG [[place] 1 tab PO Q6HR PRN 06/01/23 06/15/23 History 10-325] Loperamide [Imodium] 2 - 4 mg PO QID PRN 06/01/23 06/15/23 History Metoprolol Tartrate [Lopressor] 37.5 mg PO BID 06/01/23 06/15/23 History Multivit-Min/FA/Lycopen/Lutein 1 tab PO DAILY 06/01/23 06/15/23 History [Centrum Silver Tablet] Omeprazole [PriLOSEC] 20 mg PO DAILY 06/01/23 06/15/23 History Oxybutynin ER [Ditropan XL] 15 mg PO DAILY 06/01/23 06/15/23 History Pantoprazole Sodium [Protonix] 20 mg PO DAILY 06/01/23 06/15/23 History Acetaminophen Tab [Tylenol] 650 mg PO Q6HR PRN tab 06/09/23 06/15/23 Rx amLODIPine [Norvasc] 2.5 mg PO DAILY #30 tab 06/09/23 06/15/23 Rx Insulin Aspart [NovoLOG Flexpen] See Protocol SQ AC-TID 06/15/23 06/15/23 History Insulin Glargine,Hum.rec.anlog 12 unit SQ HS 06/15/23 06/15/23 History [Basaglar Kwikpen U-100] Nystatin 100,000 Unit/gm Powd 1 applic TOPICAL TID 06/15/23 06/15/23 History [Mycostatin Powder] Allergies Allergy/AdvReac Type Severity Reaction Status Date / Time cephalexin monohydrate Allergy Itching. Verified 06/15/23 22:16 [From Keflex] SWELLING Physical Exam Vitals: Vital Signs Temp Pulse Pulse Resp BP Pulse Ox 06/16/23 07:36 85 18 121/70 97 06/16/23 06:45 109 H 19 120/74 97 06/16/23 04:00 110 H 16 145/89 97 06/15/23 23:10 92 L 06/15/23 23:00 98 18 136/83 2 L 06/15/23 22:00 98.1 F 84 18 138/70 96 06/15/23 20:01 98 18 129/77 96 06/15/23 18:31 90 06/15/23 18:23 98.7 F 90 18 143/83 96 Intake and Output 06/15/23 06/16/23 06/16/23 22:59 06:59 14:59 Other: Weight 103.873 kg Results CBC & Chem 7: 06/15/23 18:51 06/15/23 18:51 Labs: Abnormal Lab Results - Last 24 Hours (Table) 06/15/23 06/15/23 06/15/23 Range/Units 18:51 18:51 18:51 RBC 3.73 L (3.80-5.40) m/uL Lymphocytes # 0.8 L (1.0-4.8) k/uL APTT 20.6 L (22.0-30.0) sec Sodium 130 L (137-145) mmol/L Chloride 94 L (98-107) mmol/L Glucose 206 H (74-99) mg/dL Magnesium 1.3 L (1.6-2.3) mg/dL Total Protein 6.1 L (6.3-8.2) g/dL Urine Glucose (UA) (Negative) 06/15/23 Range/Units 21:32 RBC (3.80-5.40) m/uL Lymphocytes # (1.0-4.8) k/uL APTT (22.0-30.0) sec Sodium (137-145) mmol/L Chloride (98-107) mmol/L Glucose (74-99) mg/dL Magnesium (1.6-2.3) mg/dL Total Protein (6.3-8.2) g/dL Urine Glucose (UA) Trace H (Negative)
[2023-06-16 20:17] LABS: Glucose,Whole Blood 226 mg/dL (70-110)
[2023-06-16] MEDS: INSULIN DETEMIR (LEVEMIR) 100 UNIT/ML SYR SQ SCH (21:20)
[2023-06-16] MEDS: ATORVASTATIN 40 MG TAB PO SCH (21:21)
[2023-06-16] MEDS: METOPROLOL TARTRATE 25 MG TAB PO SCH (21:21)
[2023-06-16] MEDS: traZODone HCL 50 MG TAB PO SCH (21:21)
[2023-06-17 06:06] LABS: Glucose,Whole Blood 188 mg/dL (70-110)
[2023-06-17] MEDS: FUROSEMIDE 10 MG/ML 4 ML VIAL IV SCH ×2 (06:33→15:27)
[2023-06-17] MEDS: INSULIN ASPART (NovoLOG) 100 UNIT/ML VIAL SQ SCH ×4 (06:33→20:36)
[2023-06-17] MEDS: HYDROcodone/APAP 10-325MG 1 EACH TAB PO PRN ×3 (06:33→23:04)
[2023-06-17 08:16] LABS: African American GFR (CKD) 52 (>60 ml/min/1.73 sqM); Anion Gap 5 mmol/L; Blood Urea Nitrogen 21 mg/dL (7-17); Calcium 7.2 mg/dL (8.4-10.2); Carbon Dioxide 29 mmol/L (22-30); Chloride 95 mmol/L (98-107); Glucose 127 mg/dL (74-99); Non-African American GFR(CKD) 45 (>60 ml/min/1.73 sqM); Potassium 3.5 mmol/L (3.5-5.1); Sodium 129 mmol/L (137-145)
[2023-06-17] MEDS: DULoxetine HCL 60 MG CAPSULE.DR PO SCH ×2 (09:25→20:36)
[2023-06-17] MEDS: allopurinoL 100 MG TAB PO SCH (09:25)
[2023-06-17] MEDS: THIAMINE 100 MG TAB PO SCH (09:26)
[2023-06-17] MEDS: ASPIRIN 325 MG TAB PO SCH (09:26)
[2023-06-17] MEDS: FERROUS SULFATE 325 MG TAB PO SCH (09:26)
[2023-06-17] MEDS: OXYBUTYNIN 15 MG TAB.ER.24 PO SCH (09:26)
[2023-06-17] MEDS: ARIPiprazole 10 MG TAB PO SCH (09:26)
[2023-06-17] MEDS: FOLIC ACID 1 MG TAB PO SCH (09:26)
[2023-06-17] MEDS: PANTOPRAZOLE 40 MG TABLET PO SCH (09:26)
[2023-06-17] MEDS: amLODIPine 2.5 MG TAB PO SCH (09:26)
[2023-06-17] MEDS: METOPROLOL TARTRATE 25 MG TAB PO SCH ×2 (09:26→20:37)
[2023-06-17] MEDS: NYSTATIN 100,000 UNIT/GM POWD 15 GM TOPICAL SCH ×3 (09:28→23:05)
--- NOTE | 2023-06-17 10:48 | P.PN ---
Subjective Progress Note Date: 06/17/23 History of present illness: This is a 73-year-old female with past medical history of hypertension, diabet es, dyslipidemia. Patient presented hospital due to weakness headache fatigue tiredness and shortness of breath. Patient was recently hospitalized and Lasix have been stopped. Patient complains of increased lower extremity edema and difficulty walking due to the discomfort in her feet from the swelling. EKG was a sinus tachycardia with out significant ST-T wave changes. Troponins were negative. ProBNP 513. Patient is complaining of continued chest pain that is on the right side of the sternum and reproducible, tender. The patient has been started on IV Lasix 40 mg every 8 hours. Last evening her blood pressure went down 87/58. Has recovered some this morning to 90/64. Patient receiving [place] and trazodone. These possibly contributing to the blood pressure. Patient is complaining of pain of 10 out of 10 in her neck abdomen chest feet and legs. Repeat blood work reveals sodium 129, potassium 3.5, BUN 21 creatinine 1.19. Echocardiogram performed on previous admission 06/01/2023 revealed EF of 55-60%, moderately concentric LVH. Physical examination: Gen: This is a morbidly obese 73-year-old female. She is sitting up in bed and appears to be in no acute distress, no respiratory distress noted VS: reviewed blood pressure 98/64, heart rate in the 60s to 80s, pulse ox 94% on room air HEENT: Head is atraumatic, normocephalic. Pupils equal, round. Sclerae is anic teric. NECK: Supple. No JVD. LUNGS: Crackles in the bilateral bases. No intercostal retractions. HEART: Regular rate and rhythm. No murmur. ABDOMEN: Soft No tenderness. EXTREMITIES: 3+ pedal edema wrapped with Seb wraps. NEUROLOGICAL: Patient is awake, alert and oriented x3. Assessment: Atypical chest pain, acute cardiac syndrome ruled out History of coronary artery disease status post prior angioplasty Acute on chronic diastolic heart failure Hypertension Plan: Continue current cardiac medications Continue IV Lasix for another 24 hours and then transitioned to oral Monitor I&O and daily weights, I's and renal function Discontinue amlodipine due to hypotension No need to repeat echocardiogram Further recommendations to follow based upon clinical course Thank you kindly for this consultation. Nurse practitioner note has been reviewed, I agree with documented findings and plan of care. Patient was seen and examined. Objective - Vital Signs Vital signs: Vital Signs Temp 98.1 F 06/17/23 04:00 Pulse 84 06/17/23 04:00 Resp 19 06/17/23 04:00 BP 90/58 06/17/23 04:00 Pulse Ox 95 06/17/23 04:00 FiO2 Intake & Output 06/16/23 06/17/23 06/17/23 18:59 06:59 18:59 Intake Total 580 240 Output Total 1700 600 Balance -1120 -360 Weight 103.873 kg Intake: Oral 580 240 Output: Urine 1700 600 Other: Voiding Method External Catheter External Catheter # Voids 1 - Labs CBC & Chem 7: 06/15/23 18:51 06/17/23 07:44 Labs: Abnormal Lab Results - Last 24 Hours (Table) 06/16/23 06/16/23 06/17/23 Range/Units 16:13 20:16 06:04 POC Glucose (mg/dL) 297 H 226 H 188 H (70-110) mg/dL
[2023-06-17] MEDS: NON FORMULARY DRUG (Mirabegron [Myrbetriq] 25 MG Tablet) PO SCH (11:06)
[2023-06-17 11:31] LABS: Glucose,Whole Blood 186 mg/dL (70-110)
[2023-06-17 13:12] VITALS: BMI 49.5
[2023-06-17 16:26] LABS: Glucose,Whole Blood 207 mg/dL (70-110)
--- NOTE | 2023-06-17 16:55 | P.PN ---
Progress Note - Text Progress Note Date: 06/17/23 Chief Complaint: Short of breath This is a 73-year-old patient, follows with visiting physicians Dr. Waller. At her baseline patient does use a cane sometimes a walker. Patient was recently discharged from the hospital being from June 01 through June 09. Was admitted with right lower quadrant pain felt to be mild colitis. Also treated for UTI. Constipation. Found over thickened esophagus. Supposed to follow with Dr. Karthik Ervin outpatient. Patient presents with significant weakness. Increasing edema with blisters lower extremity. Short of breath. Patient even fell out of for sulfa because of weakness. No chest pain and palpitation. Denies any fever and chills. No urinary symptoms. June 17: Breathing better. Eating well. Decreased edema. Remains on IV Lasix. Looking into rehab. Amlodipine discontinued because of low blood pressure Active Medications Acetaminophen (Acetaminophen Tab 325 Mg Tab) 650 mg PO Q6HR PRN PRN Reason: Mild Pain or Fever > 100.5 Hydrocodone Bitart/Acetaminophen (Hydrocodone/Apap 10-325mg 1 Each Tab) 1 each PO Q6HR PRN PRN Reason: Pain Last Admin: 06/17/23 12:29 Dose: 1 each Allopurinol (Allopurinol 100 Mg Tab) 100 mg PO DAILY [facility] Last Admin: 06/17/23 09:25 Dose: 100 mg Alprazolam (Alprazolam 0.25 Mg Tab) 0.25 mg PO Q6HR PRN PRN Reason: Anxiety Aripiprazole (Aripiprazole 10 Mg Tab) 10 mg PO DAILY [facility] Last Admin: 06/17/23 09:26 Dose: 10 mg Aspirin (Aspirin 325 Mg Tab) 325 mg PO DAILY [facility] Last Admin: 06/17/23 09:26 Dose: 325 mg Atorvastatin Calcium (Atorvastatin 40 Mg Tab) 40 mg PO HS [facility] Last Admin: 06/16/23 21:21 Dose: 40 mg Calcium Carbonate/Glycine (Calcium Carbonate 500 Mg Chewable) 1,000 mg PO Q4HR PRN PRN Reason: Dyspepsia Duloxetine HCl (Duloxetine Hcl 60 Mg Capsule.) 60 mg PO BID [facility] Last Admin: 06/17/23 09:25 Dose: 60 mg Ferrous Sulfate (Ferrous Sulfate 325 Mg Tab) 325 mg PO DAILY [facility] Last Admin: 06/17/23 09:26 Dose: 325 mg Folic Acid (Folic Acid 1 Mg Tab) 1 mg PO DAILY [facility] Last Admin: 06/17/23 09:26 Dose: 1 mg Furosemide (Furosemide 10 Mg/Ml 4 Ml Vial) 40 mg IV Q8H [facility] Last Admin: 06/17/23 15:27 Dose: 40 mg Insulin Aspart (Insulin Aspart (Novolog) 100 Unit/Ml Vial) 0 unit SQ ACHS [facility]; Protocol Last Admin: 06/17/23 12:30 Dose: 2 unit Insulin Detemir (Insulin Detemir (Levemir) 100 Unit/Ml Syr) 12 unit SQ [facility] Last Admin: 06/16/23 21:20 Dose: 12 unit Lactulose (Lactulose 20 Gm/30 Ml Cup) 20 gm PO DAILY PRN PRN Reason: Constipation Melatonin (Melatonin 3 Mg Tablet) 3 mg PO HS PRN PRN Reason: Insomnia Last Admin: 06/16/23 21:21 Dose: 3 mg Metoprolol Tartrate (Metoprolol Tartrate 25 Mg Tab) 25 mg PO BID [facility] Last Admin: 06/17/23 09:26 Dose: 25 mg Naloxone HCl (Naloxone 0.4 Mg/Ml 1 Ml Vial) 0.2 mg IV Q2M PRN PRN Reason: Opioid Reversal Non-Formulary Medication (Mirabegron [Myrbetriq]) 25 mg PO DAILY [facility] Last Admin: 06/17/23 11:06 Dose: Not Given Nystatin (Nystatin 100,000 Unit/Gm Powd 15 Gm) 1 applic TOPICAL TID [facility]; Protocol Last Admin: 06/17/23 15:28 Dose: 1 applic Ondansetron HCl (Ondansetron 4 Mg/2 Ml Vial) 4 mg IVP Q8HR PRN PRN Reason: Nausea And Vomiting Oxybutynin Chloride (Oxybutynin 15 Mg Tab.Er.24) 15 mg PO DAILY [facility] Last Admin: 06/17/23 09:26 Dose: 15 mg Pantoprazole Sodium (Pantoprazole 40 Mg Tablet) 40 mg PO DAILY [facility] Last Admin: 06/17/23 09:26 Dose: 40 mg Thiamine HCl (Thiamine 100 Mg Tab) 100 mg PO DAILY [facility] Last Admin: 06/17/23 09:26 Dose: 100 mg Trazodone HCl (Trazodone Hcl 50 Mg Tab) 50 mg PO HS [facility] Last Admin: 06/16/23 21:21 Dose: 50 mg Past medical history to include: Depression, hyperlipidemia, urinary stress incontinence, diabetes mellitus type 2, CAD, COPD, DVT, GERD, hyperlipidemia, mentally incapacitated, chronic kidney disease stage IV, right lobectomy for lung cancer, abdominal wall hernia, Social history: Legal guardian Marianela Syed. Past history of alcohol dependence. Has 2 roommates. Has a caregiver. Uses a walker Family history: Cancer Physical examination: VITAL SIGNS: 98.3, 76, 18, 129/60, 96% room air GENERAL: BMI 49.6 reclining in bed, comfortable EYES: Pupils equal. Conjunctiva normal. HEENT: External appearance of nose and ears normal, oral cavity dry mucous membranes. Heart appearing NECK: JVD possibly raised; masses not palpable. HEART: First and second heart sounds are normal; edema decreased LUNGS: Respiratory rate normal; decreased breath sounds. ABDOMEN: Soft, non-abdominal tenderness, no guarding rigidity abdominal wall hernia nontender, liver spleen not palpable, no masses palpable. PSYCH: Answering simple questions appropriately MUSCULOSKELETAL:No Clubbing/cyanosis;muscles-grossly intact. OA NEUROLOGICAL: Cranial nerves grossly intact; no facial asymmetry, moving all 4 limbs INVESTIGATIONS, reviewed in the clinical context: June 17: Sodium 129 BUN 21 and creatinine 1.19 June 15: White count 6 hemoglobin 11.7 platelets 164 sodium 1:30 potassium 3.7 BUN 14 creatinine 1.01 Troponin I less than 0.0123 ProBNP 513 EKG tracing personally reviewed by -mati gold. Sinus rhythm. Chest x-ray film personally reviewed by me-cardiomegaly and some venous prominence. Investigations from June 01 through 06/09/2023 Gallbladder ultrasound: Small mobile stones. No pericholecystic fluid. No gallbladder wall thickening. Computed tomography scan abdomen pelvis: No evidence of acute process. Gallsto ivon. Colonic diverticulosis. Urine culture: Klebsiella Pneumoniae, E. coli. 2-D echocardiogram: Moderate left ventricular wall thickness. EF 55-60%. Mild right ventricle dilatation. Assessment and plan: -Possibly acute congestive heart failure exacerbation from diastolic dysfunction. EF 55-60%.: Improving IV Lasix 40 mg every 12. Telemetry. Cardiac she following -Gallstones, asymptomatic -Hyponatremia, Fluid restriction 1500 mL a day. -Morbid obesity BMI 49.6 Weight loss measures -Diabetes mellitus type 2 on insulin, Follow Accu-Cheks with sliding scale Levemir -Depression and anxiety Abilify 10 mg a day. Cymbalta 60 mg twice a day. -Essential hypertension, blood pressure in the lower side Stop Norvasc Cutback Lopressor 25 mg twice a day -Hyperuricemia Allopurinol 100 mg a day -GERD Protonix 20 mg daily -Chronic urinary stress incontinence Oxybutynin 15 mg a day, Myrbetriq 25 mg a day -Chronic arthritis with pain [place] 10 1 tablet every 6 when necessary -Chronic hard of hearing -Chronic medical debility. At her baseline uses a walker -Legal guardian: Marianela Syed Stop amlodipine. Changed to oral Lasix. Looking for rehab discharged tomorrow
[2023-06-17 19:44] LABS: Glucose,Whole Blood 240 mg/dL (70-110)
[2023-06-17] MEDS: INSULIN DETEMIR (LEVEMIR) 100 UNIT/ML SYR SQ SCH (20:36)
[2023-06-17] MEDS: traZODone HCL 50 MG TAB PO SCH (20:36)
[2023-06-17] MEDS: ATORVASTATIN 40 MG TAB PO SCH (20:36)
[2023-06-18] MEDS: HYDROcodone/APAP 10-325MG 1 EACH TAB PO PRN ×2 (05:58→12:47)
[2023-06-18 06:01] LABS: Glucose,Whole Blood 202 mg/dL (70-110)
[2023-06-18] MEDS: INSULIN ASPART (NovoLOG) 100 UNIT/ML VIAL SQ SCH ×2 (06:08→12:47)
[2023-06-18 08:23] VITALS: RESP 18
[2023-06-18] MEDS ORDERED: FUROSEMIDE 40 MG TAB PO SCH (09:00)
[2023-06-18] MEDS: FOLIC ACID 1 MG TAB PO SCH (09:41)
[2023-06-18] MEDS: THIAMINE 100 MG TAB PO SCH (09:41)
[2023-06-18] MEDS: OXYBUTYNIN 15 MG TAB.ER.24 PO SCH (09:41)
[2023-06-18] MEDS: FERROUS SULFATE 325 MG TAB PO SCH (09:42)
[2023-06-18] MEDS: NON FORMULARY DRUG (Mirabegron [Myrbetriq] 25 MG Tablet) PO SCH (09:42)
[2023-06-18] MEDS: allopurinoL 100 MG TAB PO SCH (09:42)
[2023-06-18] MEDS: ASPIRIN 325 MG TAB PO SCH (09:42)
[2023-06-18] MEDS: PANTOPRAZOLE 40 MG TABLET PO SCH (09:42)
[2023-06-18] MEDS: ARIPiprazole 10 MG TAB PO SCH (09:42)
[2023-06-18] MEDS: METOPROLOL TARTRATE 25 MG TAB PO SCH (09:42)
[2023-06-18] MEDS: DULoxetine HCL 60 MG CAPSULE.DR PO SCH (09:42)
[2023-06-18] MEDS: NYSTATIN 100,000 UNIT/GM POWD 15 GM TOPICAL SCH (09:43)
[2023-06-18 10:04] LABS: African American GFR (CKD) 48 (>60 ml/min/1.73 sqM); Anion Gap 7 mmol/L; Blood Urea Nitrogen 26 mg/dL (7-17); Carbon Dioxide 27 mmol/L (22-30); Chloride 98 mmol/L (98-107); Glucose 184 mg/dL (74-99); Non-African American GFR(CKD) 42 (>60 ml/min/1.73 sqM); Sodium 132 mmol/L (137-145)
--- NOTE | 2023-06-18 11:28 | P.PN ---
Subjective Progress Note Date: 06/18/23 History of present illness: This is a 73-year-old female with past medical history of hypertension, diabet es, dyslipidemia. Patient presented hospital due to weakness headache fatigue tiredness and shortness of breath. Patient was recently hospitalized and Lasix have been stopped. Patient complains of increased lower extremity edema and difficulty walking due to the discomfort in her feet from the swelling. EKG was a sinus tachycardia with out significant ST-T wave changes. Troponins were negative. ProBNP 513. Patient is complaining of continued chest pain that is on the right side of the sternum and reproducible, tender. The patient has been started on IV Lasix 40 mg every 8 hours. Last evening her blood pressure went down 87/58. Has recovered some this morning to 90/64. Patient receiving [place] and trazodone. These possibly contributing to the blood pressure. Patient is complaining of pain of 10 out of 10 in her neck abdomen chest feet and legs. Repeat blood work reveals sodium 129, potassium 3.5, BUN 21 creatinine 1.19. Echocardiogram performed on previous admission 06/01/2023 revealed EF of 55-60%, moderately concentric LVH. 06/18 Patient continues to complain of chest pain which is reproducible and tender on palpation. Attending has transitioned IV Lasix to oral 40 mg daily. Patient states that she is scheduled to be discharged to [facility] today for rehab. Repeat blood work and not available at the time of this dictation. Physical examination: Gen: This is a morbidly obese 73-year-old female. She is sitting up in bed and appears to be in no acute distress, no respiratory distress noted VS: reviewed blood pressure 118/74, heart rate in the 60s and 70s, pulse ox 95% on room air HEENT: Head is atraumatic, normocephalic. Pupils equal, round. Sclerae is anicteric. NECK: Supple. No JVD. LUNGS: Crackles in the bilateral bases. No intercostal retractions. HEART: Regular rate and rhythm. No murmur. ABDOMEN: Soft No tenderness. EXTREMITIES: 3+ pedal edema wrapped with Seb wraps. NEUROLOGICAL: Patient is awake, alert and oriented x3. Assessment: Atypical chest pain, acute cardiac syndrome ruled out History of coronary artery disease status post prior angioplasty Acute on chronic diastolic heart failure Hypertension Plan: Continue current cardiac medications Continue oral Lasix Monitor I&O and daily weights, I's and renal function Continue to hold amlodipine No need to repeat echocardiogram Patient is cleared from cardiology for discharge. Nurse practitioner note has been reviewed, I agree with documented findings and plan of care. Patient was seen and examined. Objective - Vital Signs Vital signs: Vital Signs Temp 98.1 F 06/17/23 20:04 Pulse 72 06/18/23 03:49 Resp 20 06/18/23 03:49 BP 109/58 06/18/23 03:49 Pulse Ox 97 06/18/23 03:49 FiO2 Intake & Output 06/17/23 06/18/23 06/18/23 18:59 06:59 18:59 Intake Total 236 335 Output Total 1100 1100 Balance -864 -1100 335 Weight 103.873 kg 104 kg Intake: Oral 236 335 Output: Urine 1100 1100 Other: Voiding Method Diaper Diaper External Catheter External Catheter - Labs CBC & Chem 7: 06/15/23 18:51 06/18/23 08:33 Labs: Abnormal Lab Results - Last 24 Hours (Table) 06/17/23 06/17/23 06/17/23 Range/Units 07:44 11:30 16:24 Sodium 129 L (137-145) mmol/L Chloride 95 L (98-107) mmol/L BUN 21 H (7-17) mg/dL Creatinine 1.19 H (0.52-1.04) mg/dL Glucose 127 H (74-99) mg/dL POC Glucose (mg/dL) 186 H 207 H (70-110) mg/dL Calcium 7.2 L (8.4-10.2) mg/dL 06/17/23 06/18/23 Range/Units 19:40 06:00 Sodium (137-145) mmol/L Chloride (98-107) mmol/L BUN (7-17) mg/dL Creatinine (0.52-1.04) mg/dL Glucose (74-99) mg/dL POC Glucose (mg/dL) 240 H 202 H (70-110) mg/dL Calcium (8.4-10.2) mg/dL
[2023-06-18 11:34] LABS: Glucose,Whole Blood 221 mg/dL (70-110)
[2023-06-18 12:06] VITALS: BP 104/68; PULSE 76; TEMP 97.7
--- NOTE | 2023-06-18 13:11 | P.DS ---
Providers Date of admission: 06/15/23 22:28 Expected date of discharge: 06/18/23 Attending physician: Augustus Jackson Consults: 06/15/23 22:27 Consult Physician Routine Consulting Provider: Vel Peralta Consult Reason/Comments: chf Do you want consulting provider notified?: Yes Primary care physician: Collin Waller MD Hospital Course: Chief Complaint: Short of breath This is a 73-year-old patient, follows with visiting physicians Dr. Waller. At her baseline patient does use a cane sometimes a walker. Patient was recently discharged from the hospital being from June 01 through June 09. Was admitted with right lower quadrant pain felt to be mild colitis. Also treated for UTI. Constipation. Found over thickened esophagus. Supposed to follow with Dr. Karthik Ervin outpatient. Patient presents with significant weakness. Increasing edema with blisters lower extremity. Short of breath. Patient even fell out of for sulfa because of weakness. No chest pain and palpitation. Denies any fever and chills. No urinary symptoms. June 17: Breathing better. Eating well. Decreased edema. Remains on IV Lasix. Looking into rehab. Amlodipine discontinued because of low blood pressure June 18: Breathing greatly improved. Decreased edema. Seb wrap to continue. Changed to by mouth Lasix. Patient has been excepted at rehab. OBRA form filled. Questions answered. Daily Seb wraps Discussion and discharge planning more than 35 minutes Past medical history to include: Depression, hyperlipidemia, urinary stress incontinence, diabetes mellitus type 2, CAD, COPD, DVT, GERD, hyperlipidemia, mentally incapacitated, chronic kidney disease stage IV, right lobectomy for lung cancer, abdominal wall hernia, Social history: Legal guardian Marianela Syed. Past history of alcohol dependence. Has 2 roommates. Has a caregiver. Uses a walker Family history: Cancer Physical examination: VITAL SIGNS: 97.7, 76, 18, 104/60, 95% room air GENERAL: reclining in bed, comfortable EYES: Pupils equal. Conjunctiva normal. HEENT: External appearance of nose and ears normal, oral cavity dry mucous membranes. Heart appearing NECK: JVD possibly raised; masses not palpable. HEART: First and second heart sounds are normal; edema decreased LUNGS: Respiratory rate normal; decreased breath sounds. ABDOMEN: Soft, non-abdominal tenderness, no guarding rigidity abdominal wall hernia nontender, liver spleen not palpable, no masses palpable. PSYCH: Answering simple questions appropriately MUSCULOSKELETAL:No Clubbing/cyanosis;muscles-grossly intact. OA NEUROLOGICAL: Cranial nerves grossly intact; no facial asymmetry, moving all 4 limbs INVESTIGATIONS, reviewed in the clinical context: June 18: Sodium 132 potassium 4 BUN 26 creatinine 1.26 June 17: Sodium 129 BUN 21 and creatinine 1.19 June 15: White count 6 hemoglobin 11.7 platelets 164 sodium 1:30 potassium 3.7 BUN 14 creatinine 1.01 Troponin I less than 0.0123 ProBNP 513 EKG tracing personally reviewed by -mati gold. Sinus rhythm. Chest x-ray film personally reviewed by me-cardiomegaly and some venous prominence. Investigations from June 01 through 06/09/2023 Gallbladder ultrasound: Small mobile stones. No pericholecystic fluid. No gallbladder wall thickening. Computed tomography scan abdomen pelvis: No evidence of acute process. Galls tones. Colonic diverticulosis. Urine culture: Klebsiella Pneumoniae, E. coli. 2-D echocardiogram: Moderate left ventricular wall thickness. EF 55-60%. Mild right ventricle dilatation. Assessment and plan: - acute congestive heart failure exacerbation from diastolic dysfunction. EF 55-60%.: Improved Lasix 40 mg daily. Fluid restriction 1800 mL a day. Follow-up with Dr. Ana Lilia Ervin cardiology -Gallstones, asymptomatic -Hyponatremia,: Better Fluid restriction 1800 mL a -Morbid obesity BMI 49.6 Weight loss measures -Diabetes mellitus type 2 on insulin, Follow Accu-Cheks with sliding scale Levemir -Depression and anxiety Abilify 10 mg a day. Cymbalta 60 mg twice a day. -Essential hypertension, Stop Norvasc Lopressor 25 mg twice a day -Hyperuricemia Allopurinol 100 mg a day -GERD Protonix 20 mg daily -Chronic urinary stress incontinence Oxybutynin 15 mg a day, Myrbetriq 25 mg a day -Chronic arthritis with pain [place] 10 1 tablet every 6 when necessary -Chronic hard of hearing -Chronic medical debility. At her baseline uses a walker -Legal guardian: Marianela Syed Disposition: Rehab at [facility] Labs: CBC BMP: 5 days Daily Seb wraps lower extremity Plan - Discharge Summary Discharge Rx Participant: Yes New Discharge Prescriptions: New Melatonin 3 mg PO HS PRN tab PRN Reason: Insomnia Furosemide [Lasix] 40 mg PO DAILY tab Continue Aspirin 81 mg PO DAILY #30 chew Atorvastatin [Lipitor] 40 mg PO HS ARIPiprazole [Abilify] 10 mg PO DAILY allopurinoL [Zyloprim] 100 mg PO DAILY Folic Acid 1 mg PO DAILY #30 tablet Thiamine [Vitamin B-1] 100 mg PO DAILY #30 tablet Ergocalciferol [Vitamin D2 (1250 Mcg = 86313 Iu)] 1,250 mcg PO Q7D Pantoprazole Sodium [Protonix] 20 mg PO DAILY Oxybutynin ER [Ditropan XL] 15 mg PO DAILY Omeprazole [PriLOSEC] 20 mg PO DAILY Ferrous Sulfate [Iron (65 MG Elemental)] 325 mg PO DAILY Insulin Aspart [NovoLOG Flexpen] See Protocol SQ AC-TID Nystatin 100,000 Unit/gm Powd [Mycostatin Powder] 1 applic TOPICAL TID HYDROcodone/APAP 10-325MG [[place] 10-325] 1 tab PO Q6HR PRN #12 tab PRN Reason: Pain DULoxetine HCL [Cymbalta] 60 mg PO BID traZODone HCL 50 mg PO HS Mirabegron [Myrbetriq] 25 mg PO DAILY Loperamide [Imodium] 2 - 4 mg PO QID PRN PRN Reason: Diarrhea Acetaminophen Tab [Tylenol] 650 mg PO Q6HR PRN tab PRN Reason: Mild Pain Or Fever > 100.5 Insulin Glargine,Hum.rec.anlog [Basaglar Kwikpen U-100] 12 unit SQ HS Changed Metoprolol Tartrate [Lopressor] 25 mg PO BID #0 Discontinued amLODIPine [Norvasc] 2.5 mg PO DAILY #30 tab No Action Multivit-Min/FA/Lycopen/Lutein [Centrum Silver Tablet] 1 tab PO DAILY Discharge Medication List Aspirin 81 mg PO DAILY #30 chew 11/16/16 [Rx] Atorvastatin [Lipitor] 40 mg PO HS 11/13/17 [History] ARIPiprazole [Abilify] 10 mg PO DAILY 07/22/21 [History] DULoxetine HCL [Cymbalta] 60 mg PO BID 07/22/21 [History] Mirabegron [Myrbetriq] 25 mg PO DAILY 07/22/21 [History] traZODone HCL 50 mg PO HS 07/22/21 [History] allopurinoL [Zyloprim] 100 mg PO DAILY 01/26/22 [History] Folic Acid 1 mg PO DAILY #30 tablet 02/03/22 [Rx] Thiamine [Vitamin B-1] 100 mg PO DAILY #30 tablet 02/03/22 [Rx] Ergocalciferol [Vitamin D2 (1250 Mcg = 84474 Iu)] 1,250 mcg PO Q7D 06/01/23 [History] Ferrous Sulfate [Iron (65 MG Elemental)] 325 mg PO DAILY 06/01/23 [History] Loperamide [Imodium] 2 - 4 mg PO QID PRN 06/01/23 [History] Multivit-Min/FA/Lycopen/Lutein [Centrum Silver Tablet] 1 tab PO DAILY 06/01/23 [History] Omeprazole [PriLOSEC] 20 mg PO DAILY 06/01/23 [History] Oxybutynin ER [Ditropan XL] 15 mg PO DAILY 06/01/23 [History] Pantoprazole Sodium [Protonix] 20 mg PO DAILY 06/01/23 [History] Acetaminophen Tab [Tylenol] 650 mg PO Q6HR PRN tab 06/09/23 [Rx] Insulin Aspart [NovoLOG Flexpen] See Protocol SQ AC-TID 06/15/23 [History] Insulin Glargine,Hum.rec.anlog [Basaglar Kwikpen U-100] 12 unit SQ HS 06/15/23 [History] Nystatin 100,000 Unit/gm Powd [Mycostatin Powder] 1 applic TOPICAL TID 06/15/23 [History] Furosemide [Lasix] 40 mg PO DAILY tab 06/18/23 [Rx] HYDROcodone/APAP 10-325MG [[place] 10-325] 1 tab PO Q6HR PRN #12 tab 06/18/23 [Rx] Melatonin 3 mg PO HS PRN tab 06/18/23 [Rx] Metoprolol Tartrate [Lopressor] 25 mg PO BID #0 06/18/23 [Rx] Follow up Appointment(s)/Referral(s): Collin Waller MD [Primary Care Provider] - 1-2 days Arpan Ervin MD [STAFF PHYSICIAN] - 2 Weeks Activity/Diet/Wound Care/Special Instructions: fluid restrict 1800 cc/day
== END 2023-06-18 15:17 | disposition home health service (06) | DRG 291 ==
LOC: EC 18:21 → 3SCARD 22:28
PROVIDERS: ADMIT Hospitalist; ATTEND Hospitalist
DX: I13.0 Hypertensive heart and chronic kidney disease with heart failure and stage 1 through stage 4 chronic kidney disease, or unspecified chronic kidney disease (principal); I50.33 Acute on chronic diastolic (congestive) heart failure; N17.0 Acute kidney failure with tubular necrosis; N18.4 Chronic kidney disease, stage 4 (severe); E87.1 Hypo-osmolality and hyponatremia; K80.10 Calculus of gallbladder with chronic cholecystitis without obstruction; Z68.42 Body mass index [BMI] 45.0-49.9, adult; N39.0 Urinary tract infection, site not specified; E11.22 Type 2 diabetes mellitus with diabetic chronic kidney disease; J44.9 Chronic obstructive pulmonary disease, unspecified; E66.01 Morbid (severe) obesity due to excess calories; F10.21 Alcohol dependence, in remission; F31.9 Bipolar disorder, unspecified; R07.89 Other chest pain; I25.119 Atherosclerotic heart disease of native coronary artery with unspecified angina pectoris; Z95.5 Presence of coronary angioplasty implant and graft; E78.5 Hyperlipidemia, unspecified; N39.3 Stress incontinence (female) (male); K21.9 Gastro-esophageal reflux disease without esophagitis; B96.1 Klebsiella pneumoniae [K. pneumoniae] as the cause of diseases classified elsewhere; B96.20 Unspecified Escherichia coli [E. coli] as the cause of diseases classified elsewhere; F41.9 Anxiety disorder, unspecified; K57.30 Diverticulosis of large intestine without perforation or abscess without bleeding; I25.10 Atherosclerotic heart disease of native coronary artery without angina pectoris; I25.2 Old myocardial infarction; M19.90 Unspecified osteoarthritis, unspecified site; Z79.4 Long term (current) use of insulin; Z79.82 Long term (current) use of aspirin; G47.00 Insomnia, unspecified; K59.00 Constipation, unspecified; W19.XXXA Unspecified fall, initial encounter; Z79.899 Other long term (current) drug therapy; Z82.49 Family history of ischemic heart disease and other diseases of the circulatory system; Z85.118 Personal history of other malignant neoplasm of bronchus and lung; Z88.1 Allergy status to other antibiotic agents; Z88.8 Allergy status to other drugs, medicaments and biological substances; Z98.42 Cataract extraction status, left eye; Z98.41 Cataract extraction status, right eye; R26.2 Difficulty in walking, not elsewhere classified; K52.9 Noninfective gastroenteritis and colitis, unspecified
CPT/HCPCS: 36415; 70450; 71046; 80048; 80053; 81003; 83605; 83735; 83880; 84484; 85025; 85610; 85730; 93005; 94760; 96374; 96376; 99285

== ENCOUNTER → 2023-10-07 | Outpatient (CLI) | payer MEDICARE, OTHER ==
[2023-10-07 10:31] VITALS: BP 152/88; PULSE 78; RESP 16; TEMP 98.2
--- NOTE | 2023-10-07 13:48 | XR ---
EXAMINATION TYPE: XR lumbar spine 2 or 3V DATE OF EXAM: 10/07/2023 11:07 AM CLINICAL INDICATION:Female, 73 years old with history of M51.36 OTHER INTERVERTEBRAL DISC DEGENERATI; COMPARISON: 01/22/2016 TECHNIQUE: XR lumbar spine 2 or 3V - Frontal, lateral and coned in L5-S1 lateral views of the spine. FINDINGS: No evidence of any acute osseous pathology. No evidence of loss of vertebral body height i s seen. There is grade 1 anterolisthesis of L5 on S1. Alignment of the lumbar vertebral bodies. Mild scattered disc space narrowing. Multilevel marginal osteophyte formation throughout the visualized sp ine. There is facet joint arthropathy throughout the spine. Scattered at least mild neural foraminal stenosis. Atherosclerosis of the arterial vasculature. IMPRESSION: 1. No acute fracture. 2. Grade 1 anterolisthesis of L5 on S1. 3. Moderate multilevel degeneration changes throughout the spine.
--- NOTE | 2023-10-07 14:16 | P.PAINPG ---
PQRS Measure Charge Sheet Comment: HISTORY OF PRESENT ILLNESS: A 73 yr old female as a referral from [facility] presents today w severe and chronic LBP x 43 yrs secondary to DDD, spondylosis and facet arthropathy without myelopathy for evaluation. Pt states pain level is provoked at 10 /10 in intensity, constant, localized in the lumbar spine, predominantly axial, stabbing in character w occasional shooting pain towards the BL feet. Pain is provoked by over activity. Pain is alleviated by PT in 1985, heat, medications (Tyl), use of a wheelchair for ambulatory assistance, repositioning and rest. Oswestry axial pain score at 42. PMH: OA, Asthma, CAD, Lung CA, Angina, COPD, Diabetes Mellitus, DVT, GERD, Hyperlipidemia, HTN, CA (2009), Stage IV CKD, MDD/ Anxiety/ Bipolar PSH: Lobectomy s/p Lung CA, Abd Wall Hernia Repair, Section, Heart Catheterization With Stent x2 (2017), R Wrist ORIF, L RCT Repair, BL Cataracts Extractions, Colonoscopies, SH: Mentally Incapacitated w Guardian Marianela Syed. Never smoker, No ETOH use, No illicit drug use FH: Bro- CA All: See list Meds: See list REVIEW OF ORGAN SYSTEMS: CONSTITUTIONAL: No fevers or chills. No recent weight loss. NEUROLOGICAL: + numbness and tingling along the distal extremities. No seizure disorders or headaches. MUSCULOSKELETAL: + pain PSYCHIATRIC: Denies current depression or suicidal thoughts. Physical Examinations : Constitutional : Cooperative , not in acute distress . Neurologic : Cranial nerve II to XII intact. No focal neurological deficits. Psychiatric : alert & oriented x 3. Matching mood & appropriate affect. Judgment & insight intact. Musculoskeletal : Cervical Spine Motor strength in the deltoid and biceps: Normal right side. Normal Left side Motor strength biceps and the wrist extensors: Normal right side . Normal left side Motor strength in the triceps muscle: Normal right side. Normal left side Deep tendon reflexes: Normal at the biceps. Normal at Brachioradialis. Normal at triceps Vertebral body tenderness to deep palpation over Cervical facet loading test: positive bilaterally Spurling test: positive bilaterally Neck distraction test: positive bilaterally Mikala sign: positive bilaterally Lumbar spine Motor strength lower extremities ,thigh and legs 5/5 Right side , 5/5 Left side Deep tendon reflexes : Normal Knee Jerk. Normal Ankle Jerk Vertebral body tenderness over Garcia Test positive Lumbar facet Loading Test: positive Right / positive Left Range of motion of the lumbar spine Flexion 30 degrees, extension 10 degrees Straight Leg Raise test: Left/ Right positive at degree Alison test: positive right / positive left. Severe tenderness over the Sacroiliac joint on the Right / Left sides Gaenslen test: positive bilaterally Seated flexion test: positive bilaterally. Sacral spine : Severe tenderness over the Sacroiliac joint: right side / left side Range of motion: Flexion of the lumbar spine <60 degrees Range of motion: Extension of the lumbar spine <20 degrees Gaenslen's Test positive Alison test: positive right side / left side Thigh Thrust Test Sacral Thrust Test Imaging: None on file Assessment/ Plan : Lumbar DDD Recommendation of PT x 6 wks, Lumbar x ray M51.36 May need additional testing if clinically indicated. All questions answered. I have spent greater than 30 minutes on patient care today. Dr Colby was available by phone for the evaluation of this patient. The time was used to review the medical records including relevant urine studies and Prescription history (MAPs), review of the available imaging, evaluation and examination of the patient, coordination of care with the medical staff and if applicable referring physicians, as well as creation of the medical record PQRS Narrative: Smoking Status Never smoker Home Medications: Ambulatory Orders Aspirin 81 mg PO DAILY #30 chew 11/16/16 Atorvastatin [Lipitor] 40 mg PO HS 11/13/17 ARIPiprazole [Abilify] 10 mg PO DAILY 07/22/21 DULoxetine HCL [Cymbalta] 60 mg PO BID 07/22/21 Mirabegron [Myrbetriq] 25 mg PO DAILY 07/22/21 traZODone HCL 50 mg PO HS 07/22/21 allopurinoL [Zyloprim] 100 mg PO DAILY 01/26/22 Folic Acid 1 mg PO DAILY #30 tablet 02/03/22 Thiamine [Vitamin B-1] 100 mg PO DAILY #30 tablet 02/03/22 Ergocalciferol [Vitamin D2 (1250 Mcg = 71849 Iu)] 1,250 mcg PO Q7D 06/01/23 Ferrous Sulfate [Iron (65 MG Elemental)] 325 mg PO DAILY 06/01/23 Loperamide [Imodium] 2 - 4 mg PO QID PRN 06/01/23 Multivit-Min/FA/Lycopen/Lutein [Centrum Silver Tablet] 1 tab PO DAILY 06/01/23 Omeprazole [PriLOSEC] 20 mg PO DAILY 06/01/23 Oxybutynin ER [Ditropan XL] 15 mg PO DAILY 06/01/23 Pantoprazole Sodium [Protonix] 20 mg PO DAILY 06/01/23 Acetaminophen Tab [Tylenol] 650 mg PO Q6HR PRN tab 06/09/23 Insulin Aspart [NovoLOG Flexpen] See Protocol SQ AC-TID 06/15/23 Insulin Glargine,Hum.rec.anlog [Basaglar Kwikpen U-100] 12 unit SQ HS 06/15/23 Nystatin 100,000 Unit/gm Powd [Mycostatin Powder] 1 applic TOPICAL TID 06/15/23 Furosemide [Lasix] 40 mg PO DAILY tab 06/18/23 HYDROcodone/APAP 10-325MG [[place] 10-325] 1 tab PO Q6HR PRN #12 tab 06/18/23 Melatonin 3 mg PO HS PRN tab 06/18/23 Metoprolol Tartrate [Lopressor] 25 mg PO BID #0 06/18/23 Controlled Substance Measures - Controlled Substance Measures Is patient prescribed a controlled substance at discharge?: No
== END ==
LOC: PNWHC3 09:53
PROVIDERS: ATTEND Specialist
DX: Z00.01 Encounter for general adult medical examination with abnormal findings (principal); G89.29 Other chronic pain; M51.36 Other intervertebral disc degeneration, lumbar region; M43.17 Spondylolisthesis, lumbosacral region; I13.0 Hypertensive heart and chronic kidney disease with heart failure and stage 1 through stage 4 chronic kidney disease, or unspecified chronic kidney disease; I50.32 Chronic diastolic (congestive) heart failure; N18.4 Chronic kidney disease, stage 4 (severe); M19.90 Unspecified osteoarthritis, unspecified site; I25.10 Atherosclerotic heart disease of native coronary artery without angina pectoris; J44.89 Other specified chronic obstructive pulmonary disease; E11.22 Type 2 diabetes mellitus with diabetic chronic kidney disease; K21.9 Gastro-esophageal reflux disease without esophagitis; E78.5 Hyperlipidemia, unspecified; F41.9 Anxiety disorder, unspecified; F31.9 Bipolar disorder, unspecified; I25.2 Old myocardial infarction; Z86.718 Personal history of other venous thrombosis and embolism; Z85.118 Personal history of other malignant neoplasm of bronchus and lung; Z79.82 Long term (current) use of aspirin; Z79.899 Other long term (current) drug therapy; Z79.4 Long term (current) use of insulin; Z88.1 Allergy status to other antibiotic agents
CPT/HCPCS: 72100; G0463; 99211

== ENCOUNTER → 2023-10-26 | Outpatient (CLI) | payer MEDICARE, OTHER ==
--- NOTE | 2023-10-27 16:13 | CT ---
EXAMINATION TYPE: CT lumbar spine wo con CT DLP: 875 mGycm, Automated exposure control for dose reduction was used. DATE OF EXAM: 10/26/2023 3:36 PM COMPARISON: . CLINICAL INDICATION:Female, 73 years old with history of M51.36 OTHER INTERVERTEBRAL DISC DEGENERATIO N, LUM; PHH, Chronic lower back pain, DDD. TECHNIQUE: Multiple axial images were obtained from the midportion of T11 through the sacroiliac alhaji nts. Soft tissue and bone windows in coronal and sagittal planes were obtained and reviewed. 3-D ref ormats of the bones were created on a separate workstation and submitted for review. Contrast used: mL of , (None, if empty). Oral contrast used: (None, if empty). FINDINGS: Alignment: There are 5 lumbar type vertebral bodies within normal alignment. Bone: No compression fractures. Multilevel vacuum disc phenomenon Bilateral vacuum joint phenomeno n SI joints. Discs: T12-L1: No spinal canal or neural foraminal stenosis is identified. L1-L2: No spinal canal or neural foraminal stenosis is identified. L2-L3: No spinal canal or neural foraminal stenosis is identified. L3-L4: No spinal canal or neural foraminal stenosis is identified. L4-L5: No spinal canal or neural foraminal stenosis is identified. L5-S1: No spinal canal or neural foraminal stenosis is identified. Other: None IMPRESSION: 1. No evidence for spinal fracture. 2. Multilevel vacuum disc phenomena. 3. Bilateral vacuum joint phenomenon SI joints.
== END | disposition home or self-care (01) ==
LOC: RADCTMAIN 15:17
PROVIDERS: ATTEND Specialist
DX: M51.36 Other intervertebral disc degeneration, lumbar region (principal)
CPT/HCPCS: 72131

== ENCOUNTER → 2023-12-29 | Outpatient (CLI) | payer MEDICARE, OTHER ==
--- NOTE | 2023-12-29 13:14 | P.PAINPG ---
PQRS Measure Charge Sheet Comment: HISTORY OF PRESENT ILLNESS: A 73 yr old wheelchair bound female presents today w severe and chronic LBP x 43 yrs secondary to DDD, spondylosis and facet arthropathy without myelopathy for evaluation. Pt states pain level is provoked at 10 /10 in intensity, constant, localized in the lumbar spine, predominantly axial, stabbing in character w occasional shooting pain towards the BL feet. Pain is provoked by over activity. Pain is alleviated by PT in 1984, physician guided stretches every morning since Sep 2023, heat, medications, use of a wheelchair and cane for ambulatory assistance, repositioning and rest. Oswestry axial pain score at 42. Interventional procedures include Medications include Tyl. Mentally Incapacitated w Guardian Marianela Syed. REVIEW OF ORGAN SYSTEMS: CONSTITUTIONAL: No fevers or chills. No recent weight loss. NEUROLOGICAL: + numbness and tingling along the distal extremities. No seizure disorders or headaches. MUSCULOSKELETAL: + pain PSYCHIATRIC: Denies current depression or suicidal thoughts. Physical Examinations : Constitutional : Cooperative , not in acute distress . Neurologic : Cranial nerve II to XII intact. No focal neurological deficits. Psychiatric : alert & oriented x 3. Matching mood & appropriate affect. Judgment & insight intact. Musculoskeletal : Cervical Spine Motor strength in the deltoid and biceps: Normal right side. Normal Left side Motor strength biceps and the wrist extensors: Normal right side . Normal left side Motor strength in the triceps muscle: Normal right side. Normal left side Deep tendon reflexes: Normal at the biceps. Normal at Brachioradialis. Normal at triceps Vertebral body tenderness to deep palpation over Cervical facet loading test: positive bilaterally Spurling test: positive bilaterally Neck distraction test: positive bilaterally Mikala sign: positive bilaterally Lumbar spine Motor strength lower extremities ,thigh and legs 5/5 Right side , 5/5 Left side Deep tendon reflexes : Normal Knee Jerk. Normal Ankle Jerk Vertebral body tenderness over Garcia Test positive L5-S1 Lumbar facet Loading Test: positive Right / positive Left Range of motion of the lumbar spine Flexion 30 degrees, extension 10 degrees Straight Leg Raise test: Left/ Right positive at < 30 degrees Alison test: positive right / positive left. Severe tenderness over the Sacroiliac joint on the Right / Left sides Gaenslen test: positive bilaterally Seated flexion test: positive bilaterally. Sacral spine : Severe tenderness over the Sacroiliac joint: right side / left side Range of motion: Flexion of the lumbar spine <60 degrees Range of motion: Extension of the lumbar spine <20 degrees Gaenslen's Test positive Alison test: positive right side / left side Thigh Thrust Test Sacral Thrust Test Imaging: CT non contrast of the lumbar spine from 10/26/23 reviewed Assessment/ Plan : Lumbar DDD w Vacuum Disc Phenomenon, SI joint Vacuum Disc Phenomenon Recommendation of LAY L5-S1 #1. May need a series of injections for optimal pain relief. Risk, benefits of procedure discussed and patient verbalized understanding. Protocol for discontinuation/continuation of medication surrounding procedure discussed. Recommendation of PT to focus on therapeutic massage x 6 wks, TENS unit use M51.36. Trial of Flexeril 10mg #60 w 1 RF. Use, side effects, adverse reactions, safe storage discussed. Pt acknowledged understanding. All questions answered. I have spent greater than 30 minutes on patient care today. Dr Colby was avai lable by phone for the evaluation of this patient. The time was used to review the medical records including relevant urine studies and Prescription history (MAPs), review of the available imaging, evaluation and examination of the patient, coordination of care with the medical staff and if applicable referring physicians, as well as creation of the medical record PQRS Narrative: Smoking Status Never smoker Hx Alcohol Use (MH) No Home Medications: Ambulatory Orders Aspirin 81 mg PO DAILY #30 chew 11/16/16 Atorvastatin [Lipitor] 40 mg PO HS 11/13/17 ARIPiprazole [Abilify] 10 mg PO DAILY 07/22/21 DULoxetine HCL [Cymbalta] 60 mg PO BID 07/22/21 Mirabegron [Myrbetriq] 25 mg PO DAILY 07/22/21 traZODone HCL 50 mg PO HS 07/22/21 allopurinoL [Zyloprim] 100 mg PO DAILY 01/26/22 Folic Acid 1 mg PO DAILY #30 tablet 02/03/22 Thiamine [Vitamin B-1] 100 mg PO DAILY #30 tablet 02/03/22 Ergocalciferol [Vitamin D2 (1250 Mcg = 15428 Iu)] 1,250 mcg PO Q7D 06/01/23 Ferrous Sulfate [Iron (65 MG Elemental)] 325 mg PO DAILY 06/01/23 Loperamide [Imodium] 2 - 4 mg PO QID PRN 06/01/23 Multivit-Min/FA/Lycopen/Lutein [Centrum Silver Tablet] 1 tab PO DAILY 06/01/23 Omeprazole [PriLOSEC] 20 mg PO DAILY 06/01/23 Oxybutynin ER [Ditropan XL] 15 mg PO DAILY 06/01/23 Pantoprazole Sodium [Protonix] 20 mg PO DAILY 06/01/23 Acetaminophen Tab [Tylenol] 650 mg PO Q6HR PRN tab 06/09/23 Insulin Aspart [NovoLOG Flexpen] See Protocol SQ AC-TID 06/15/23 Insulin Glargine,Hum.rec.anlog [Basaglar Kwikpen U-100] 12 unit SQ HS 06/15/23 Nystatin 100,000 Unit/gm Powd [Mycostatin Powder] 1 applic TOPICAL TID 06/15/23 Furosemide [Lasix] 40 mg PO DAILY tab 06/18/23 HYDROcodone/APAP 10-325MG [[place] 10-325] 1 tab PO Q6HR PRN #12 tab 06/18/23 Melatonin 3 mg PO HS PRN tab 06/18/23 Metoprolol Tartrate [Lopressor] 25 mg PO BID #0 06/18/23 Cyclobenzaprine [Flexeril] 10 mg PO BID PRN 30 Days #60 tab 12/29/23 Controlled Substance Measures - Controlled Substance Measures Is patient prescribed a controlled substance at discharge?: No
[2023-12-29 13:34] VITALS: BP 123/70; PULSE 74; RESP 15; TEMP 98.4
== END ==
LOC: PNWHC3 11:40
PROVIDERS: ATTEND Specialist
DX: M51.37 Other intervertebral disc degeneration, lumbosacral region (principal); M51.87 Other intervertebral disc disorders, lumbosacral region; Z88.1 Allergy status to other antibiotic agents
CPT/HCPCS: 99211

== ENCOUNTER 2024-01-01 12:53 | Emergency (ER) | payer MEDICARE, OTHER ==
--- NOTE | 2024-01-01 13:42 | ED ---
Lower Extremity Injury HPI - General Chief Complaint: Extremity Injury, Lower Stated Complaint: L ankle pain Time Seen by Provider: 01/01/24 13:40 Source: patient, RN notes reviewed Mode of arrival: wheelchair Limitations: no limitations - History of Present Illness Initial Comments: 73-year-old female presented to the ER with a chief complaint of left calf pain and swelling. Patient has a past medical history significant of DVTs and is not currently on a blood thinner. She reports she started to experience pain in her left ankle yesterday and noticed swelling later at night. She denies any injuries or traumas. She states this feels similar to when she had blood clots in the past. She denies any wounds, fevers, paresthesias, chest pain, shortness of breath. Patient does normally wear nasal cannula oxygen at home. - Related Data Home Medications Medication Instructions Recorded Confirmed Atorvastatin [Lipitor] 40 mg PO HS 11/13/17 06/15/23 ARIPiprazole [Abilify] 10 mg PO DAILY 07/22/21 06/15/23 DULoxetine HCL [Cymbalta] 60 mg PO BID 07/22/21 06/15/23 Mirabegron [Myrbetriq] 25 mg PO DAILY 07/22/21 06/15/23 traZODone HCL 50 mg PO HS 07/22/21 06/15/23 allopurinoL [Zyloprim] 100 mg PO DAILY 01/26/22 06/15/23 Ergocalciferol [Vitamin D2 (1250 1,250 mcg PO Q7D 06/01/23 06/15/23 Mcg = 28028 Iu)] Ferrous Sulfate [Iron (65 MG 325 mg PO DAILY 06/01/23 06/15/23 Elemental)] Loperamide [Imodium] 2 - 4 mg PO QID PRN 06/01/23 06/15/23 Multivit-Min/FA/Lycopen/Lutein 1 tab PO DAILY 06/01/23 06/15/23 [Centrum Silver Tablet] Omeprazole [PriLOSEC] 20 mg PO DAILY 06/01/23 06/15/23 Oxybutynin ER [Ditropan XL] 15 mg PO DAILY 06/01/23 06/15/23 Pantoprazole Sodium [Protonix] 20 mg PO DAILY 06/01/23 06/15/23 Insulin Aspart [NovoLOG Flexpen] See Protocol SQ AC-TID 06/15/23 06/15/23 Insulin Glargine,Hum.rec.anlog 12 unit SQ HS 06/15/23 06/15/23 [Basaglar Kwikpen U-100] Nystatin 100,000 Unit/gm Powd 1 applic TOPICAL TID 06/15/23 06/15/23 [Mycostatin Powder] Previous Rx's Medication Instructions Recorded Aspirin 81 mg PO DAILY #30 chew 11/16/16 Folic Acid 1 mg PO DAILY #30 tablet 02/03/22 Thiamine [Vitamin B-1] 100 mg PO DAILY #30 tablet 02/03/22 Acetaminophen Tab [Tylenol] 650 mg PO Q6HR PRN tab 06/09/23 Furosemide [Lasix] 40 mg PO DAILY tab 06/18/23 HYDROcodone/APAP 10-325MG [[place] 1 tab PO Q6HR PRN #12 tab 06/18/23 10-325] Melatonin 3 mg PO HS PRN tab 06/18/23 Metoprolol Tartrate [Lopressor] 25 mg PO BID #0 06/18/23 tiZANidine [Zanaflex] 4 mg PO BID PRN 30 Days #60 tab 12/29/23 Clindamycin [Cleocin] 450 mg PO TID 7 Days #21 cap 01/01/24 Allergies Allergy/AdvReac Type Severity Reaction Status Date / Time cephalexin monohydrate Allergy Itching. Verified 06/15/23 22:16 [From Keflex] SWELLING Review of Systems ROS Statement: Those systems with pertinent positive or pertinent negative responses have been documented in the HPI. ROS Other: All systems not noted in ROS Statement are negative. Past Medical History Past Medical History: Asthma, Coronary Artery Disease (CAD), Cancer, Chest Pain / Angina, COPD, Diabetes Mellitus, Deep Vein Thrombosis (DVT), GERD/Reflux, Hyperlipidemia, Hypertension, Myocardial Infarction (GA), Osteoarthritis (OA) Additional Past Medical History / Comment(s): mentally incapacitated per guardian, morbid obesity, Chronic kidney disease stage IV, chronic bronchitis, lobectomy for lung cancer, abdominal wall hernia R side, generalized weakness, gait dysfunction, falls, DJD T12 and L1, urine incontinence at times. The patient lives w/her guardian Marianela Syed who is new to this role so wasn't able to confirm health hx., gets bubble pack of meds set up by Visiting Physician-fiona patel own meds per guardian Last Myocardial Infarction Date:: 01/20/09 History of Any Multi-Drug Resistant Organisms: VRE Date of last positivie culture/infection: 11/13/17 MDRO Source:: VRE URINE Past Surgical History: Section, Heart Catheterization, Heart Catheterization With Stent, Orthopedic Surgery Additional Past Surgical History / Comment(s): Lung lobectomy, ORIF RIGHT ULNA/RADIUS, left rotator cuff repair, cataract removals, heel surgery r/t infection (laterality unknown), colonoscopies/ benign polypectomy, PCI/ stent x2, guardian unable to confirm Past Anesthesia/Blood Transfusion Reactions: No Reported Reaction Date of Last Stent Placement:: 11/2016 Past Psychological History: Anxiety, Bipolar, Depression Smoking Status: Never smoker - Past Family History Brother(s) Family Medical History: Cancer General Exam General appearance: alert, in no apparent distress Respiratory exam: Present: normal lung sounds bilaterally. Absent: respiratory distress, wheezes, rales, rhonchi, stridor Cardiovascular Exam: Present: regular rate, normal rhythm, normal heart sounds. Absent: systolic murmur, diastolic murmur, rubs, gallop, clicks Extremities exam: Present: tenderness (Left calf. Overlying skin is erythematous and edematous. 2+ left dorsalis pedis pulse. Sensation intact.) Neurological exam: Present: alert, oriented X3, CN II-XII intact Skin exam: Present: warm, dry, intact, normal color. Absent: rash Course Vital Signs 01/01/24 01/01/24 13:08 17:13 Temperature 98.2 F 98.0 F Pulse Rate 73 76 Respiratory 16 18 Rate Blood Pressure 127/76 132/74 O2 Sat by Pulse 97 98 Oximetry Medical Decision Making - Medical Decision Making Was pt. sent in by a medical professional or institution (, PA, BOBBIN DISKER, urgent care, hospital, or prison...) When possible be specific @ -No Did you speak to anyone other than the patient for history (EMS, parent, family, police, friend...)? What history was obtained from this source @ -No Did you review nursing and triage notes (agree or disagree)? Why? @ -I reviewed and agree with nursing and triage notes Were old charts reviewed (outside hosp., previous admission, EMS record, old EKG, old radiological studies, urgent care reports/EKG's, prison records)? Report findings @ -No old charts were reviewed Differential Diagnosis (chest pain, altered mental status, abdominal pain women, abdominal pain men, vaginal bleeding, weakness, fever, dyspnea, syncope, headache, dizziness, GI bleed, back pain, seizure, CVA, palpatations, mental health, musculoskeletal)? @ -Differential Musculoskeletal: Muscular strain, contusion, ligament sprain, fracture, arthritis, septic arthritis, bursitis, cellulitis, muscle spasm, nerve compression, DVT, arterial occlusion, herpes zoster, electrolyte abnormality, tumor.... This is not meant to be in all inclusive list EKG interpreted by me (3pts min.). @ -None X-rays interpreted by me (1pt min.). @ -None done CT interpreted by me (1pt min.). @ -None done U/S interpreted by me (1pt. min.). @ -Venous Doppler left lower extremity negative for acute DVT. What testing was considered but not performed or refused? (CT, X-rays, U/S, labs)? Why? @ -None What meds were considered but not given or refused? Why? @ -None Did you discuss the management of the patient with other professionals (professionals i.e. , PA, BOBBIN DISKER, lab, RT, psych nurse, medical social worker, cooper apprentice, teacher, ethics officer, keycase assembler)? Give summary @ -No Was smoking cessation discussed for >3mins.? @ -No Was critical care preformed (if so, how long)? @ -No Were there social determinants of health that impacted care today? How? (Homelessness, low income, unemployed, alcoholism, drug addiction, transportation, low edu. Level, literacy, decrease access to med. care, fpc, rehab)? @ -No Was there de-escalation of care discussed even if they declined (Discuss DNR or withdrawal of care, Hospice)? DNR status @ -No What co-morbidities impacted this encounter? (DM, HTN, Smoking, COPD, CAD, Cancer, CVA, ARF, Chemo, Hep., AIDS, mental health diagnosis, sleep apnea, morbid obesity)? @ -Obese, diabetes Was patient admitted / discharged? Hospital course, mention meds given and route, prescriptions, significant lab abnormalities, going to OR and other pertinent info. @ -Discharge. 73-year-old female presented to the ER with a chief complaint of atraumatic left lower extremity pain. History and physical exam completed. Vitals stable. Patient in no signs of acute distress and nontoxic-appearing. Physical exam significant 1+ pitting pretibial edema to left lower extremity. Mild erythema of surrounding tissues. Left lower extremity neurovascular intact. No focal bony tenderness. Ultrasound performed due to patient's history of DVTs and is not currently on a blood thinner. Ultrasound negative for acute DVT. Results discussed with patient, all questions answered. Clindamycin prescribed for concern of cellulitis, first dose in ER. Return parameters discussed. Patient discharged in stable condition. Patient verbally expressed understanding and agreement with care plan. Case discussed with ED attending, Dr. Merlos. Undiagnosed new problem with uncertain prognosis? @ -No Drug Therapy requiring intensive monitoring for toxicity (Heparin, Nitro, Insulin, Cardizem)? @ -No Were any procedures done? @ -No Diagnosis/symptom? @ -Cellulitis Acute, or Chronic, or Acute on Chronic? @ -Acute Uncomplicated (without systemic symptoms) or Complicated (systemic symptoms)? @ -Uncomplicated Side effects of treatment? @ -No Exacerbation, Progression, or Severe Exacerbation? @ -No Poses a threat to life or bodily function? How? (Chest pain, [place], GA, pneumonia, PE, COPD, DKA, ARF, appy, cholecystitis, CVA, Diverticulitis, Homicidal, Suicidal, threat to staff... and all critical care pts) @ -No - Radiology Data Radiology results: report reviewed, image reviewed Disposition Clinical Impression: Cellulitis Disposition: HOME SELF-CARE Condition: Stable Instructions (If sedation given, give patient instructions): Cellulitis (ED) Additional Instructions: Please follow-up with PCP soon as possible. Return to the ER for any new or worsening concerns. Prescriptions: Clindamycin [Cleocin] 450 mg PO TID 7 Days #21 cap Is patient prescribed a controlled substance at d/c from ED?: No Referrals: Collin Waller MD [Primary Care Provider] - 1-2 days Time of Disposition: 16:53
[2024-01-01] MEDS: ACETAMINOPHEN TAB 325 MG TAB PO STA (14:47)
--- NOTE | 2024-01-01 15:42 | US ---
EXAMINATION TYPE: US venous doppler duplex LE LT DATE OF EXAM: 01/01/2024 2:12 PM COMPARISON: NONE CLINICAL INDICATION: Female, 73 years old with history of pain and swelling; pain and edema SIDE PERFORMED: Left TECHNIQUE: The lower extremity deep venous system is examined utilizing real time linear array sonog tommy with graded compression, doppler sonography and color-flow sonography. VESSELS IMAGED: Common Femoral Vein Deep Femoral Vein Greater Saphenous Vein * Femoral Vein Popliteal Vein Small Saphenous Vein * Proximal Calf Veins (* superficial vessels) FINDINGS: Grayscale, color doppler, spectral doppler imaging performed of the deep veins of the lower extremiti es. There is normal flow, compressibility, vascular waveforms. Left Leg: Negative for DVT IMPRESSION: No evidence of left lower extremity DVT.
[2024-01-01] MEDS: CLINDAMYCIN 150 MG CAP PO STA (17:02)
[2024-01-01 17:26] VITALS: BP 132/74; PULSE 76; RESP 18; TEMP 98
== END 2024-01-01 19:00 | disposition home or self-care (01) ==
LOC: EC 12:53
DX: L03.116 Cellulitis of left lower limb (principal); E66.01 Morbid (severe) obesity due to excess calories; E11.9 Type 2 diabetes mellitus without complications; Z88.1 Allergy status to other antibiotic agents; Z68.43 Body mass index [BMI] 50.0-59.9, adult
CPT/HCPCS: 99283

== ENCOUNTER 2024-01-18 09:12 | Day surgery (SDC) | payer MEDICARE, OTHER ==
[~2024-01-18 09:12] MED LIST changes: -LIDOCAINE 1% (10MG/ML) FOR IV START INTRADERMA PRN
[2024-01-18 09:44] LABS: Glucose,Whole Blood 297 mg/dL (70-110)
[2024-01-18 10:00] VITALS: RESP 16; TEMP 97.8
[2024-01-18] MEDS ORDERED: IOPAMIDOL M200 10 ML VIAL ONE (10:00)
[2024-01-18] MEDS ORDERED: methylPREDNISolone ACETATE 40 MG/ML 1 ML VIAL ONE (10:00)
[2024-01-18] MEDS: INSULIN ASPART (NovoLOG) 100 UNIT/ML VIAL SQ ONE (10:06)
--- NOTE | 2024-01-18 10:09 | P.PCN ---
Date of Procedure: 01/18/24 Description of Procedure: PREOPERATIVE DIAGNOSIS: lumbar radiculopathy POSTOPERATIVE DIAGNOSIS: Lumbar radiculopathy PROCEDURE 1. Lumbar epidural steroid injection under fluoroscopic guidance at the L4/5 level. (L5/S1 LEVEL had a rash and was near stool so the needle was not entered near that area) 2. Lumbar epidurogram. Imaging: Fluoroscopy was used, images where saved to the medical record ANESTHESIA: local only EBL: Minimal PROCEDURE INDICATION: The patient with low back pain and radiculitis symptoms unresponsive to conservative treatment. Fluoroscopy was used to optimize visualization of the needle placement and to maximize safety. PROCEDURE DESCRIPTION / TECHNIQUE: The patient was seen and identified in the preoperative area. Risks, benefits, complications including but not limited to infections, bleeding, allergic reaction to medications, nerve damage and incomplete pain relief, as well as a lternatives to the procedure were discussed with the patient. The patient agreed to proceed with the procedure and signed the consent. IV was started if indicated above, and vital signs were stable. Patient was taken to the OR and time out was completed. The patient was placed in the prone position on procedure table and a pillow was placed under the abdomen to reduce lumbar lordosis. The lumbosacral area was prepped and draped in the usual sterile fashion. Vitals were closely monitored during the procedure. Using anterior-posterior fluoroscopy, the L4/5 interlaminar space was identified and the skin over this site was marked and then infiltrated with 1% lidocaine subcutaneously. Subsequently, a 20-gauge Tuohy epidural needle was inserted and advanced toward the epidural space using the Loss of resistance technique and guided by AP and lateral fluoroscopy. The correct needle position in the epidural space was verified with the injection of 1 mL of Omnipaque 180 contrast to observe an acceptable epidurogram, after negative aspiration for blood and CSF and in the absence of paresthesias. Again after negative aspiration, a 3 ml mixture containing 40mg of depomedrol and 2 ml of pr eservative free Normal Saline was injected and a washout of epidurogram was seen. Needle was withdrawn intact, skin was cleansed, and bandages were applied. COMPLICATIONS: None DISPOSITION / PLANS: The patient was placed in a supine position and transferred to the recovery area in a stable condition for observation. There was no evidence of lower extremity motor or sensory deficit after the procedure. Patient was discharged from the recovery room after meeting discharge criteria. Home discharge instructions were given to the patient by the staff. The patient was reexamined prior to discharge. The patient will follow up as directed.
--- NOTE | 2024-01-18 10:20 | FL ---
EXAMINATION TYPE: FL guided pain mgmt statistic DATE OF EXAM: 01/18/2024 HISTORY: Fluoroscopy time Total dose area product (DAP) in uGy*m?, mGy*cm? (or similar): 0.29676 IMPRESSION: 1. Fluoroscopy time.
[2024-01-18 10:27] LABS: Glucose,Whole Blood 297 mg/dL (70-110)
[2024-01-18 10:38] VITALS: BP 144/79; PULSE 64
[2024-01-18] MEDS: ACETAMINOPHEN TAB 325 MG TAB PO ONE (11:39)
== END 2024-01-18 12:24 | disposition home or self-care (01) ==
LOC: ORPAIN 09:12
PROVIDERS: ATTEND Hospitalist
DX: M54.16 Radiculopathy, lumbar region (principal); E11.9 Type 2 diabetes mellitus without complications; Z79.82 Long term (current) use of aspirin; Z88.1 Allergy status to other antibiotic agents
CPT/HCPCS: 62323; Q9966; J1010

== ENCOUNTER 2024-01-28 12:11 | Inpatient (IN) | payer MEDICARE, OTHER ==
--- NOTE | 2024-01-28 12:39 | ED ---
General Adult HPI - General Chief complaint: Weakness Stated complaint: weak Time Seen by Provider: 01/28/24 12:13 Source: patient, EMS, RN notes reviewed Mode of arrival: EMS Limitations: no limitations - History of Present Illness Initial comments: Patient is a 73-year-old female present to the emergency department with weakness. Patient has been unable to get out of bed or walk for the past 3 days. Patient feels weak all over. Patient does have dyspnea and mild nonproductive cough. Patient does have some chest discomfort. Patient has had some nausea and vomiting. Patient has had chills. - Related Data Home Medications Medication Instructions Recorded Confirmed Atorvastatin [Lipitor] 40 mg PO HS 11/13/17 01/28/24 ARIPiprazole [Abilify] 10 mg PO DAILY 07/22/21 01/28/24 DULoxetine HCL [Cymbalta] 60 mg PO BID 07/22/21 01/28/24 Mirabegron [Myrbetriq] 25 mg PO DAILY 07/22/21 01/28/24 traZODone HCL 150 mg PO HS 07/22/21 01/28/24 allopurinoL [Zyloprim] 100 mg PO DAILY 01/26/22 01/28/24 Omeprazole [PriLOSEC] 20 mg PO DAILY 06/01/23 01/28/24 Oxybutynin ER [Ditropan XL] 15 mg PO DAILY 06/01/23 01/28/24 Empagliflozin [Jardiance] 10 mg PO DAILY 01/05/24 01/28/24 Furosemide [Lasix] 40 mg PO DAILY 01/05/24 01/28/24 Losartan [Cozaar] 25 mg PO DAILY 01/05/24 01/28/24 amLODIPine [Norvasc] 5 mg PO DAILY 01/05/24 01/28/24 Acetaminophen [Tylenol 8 Hour] 650 mg PO Q6H 01/28/24 01/28/24 Insulin Glargine,Hum.rec.anlog 30 unit SQ HS 01/28/24 01/28/24 [Basaglar Kwikpen U-100] Pantoprazole Sodium [Protonix] 20 mg PO DAILY 01/28/24 01/28/24 Previous Rx's Medication Instructions Recorded Metoprolol Tartrate [Lopressor] 25 mg PO BID #0 06/18/23 Allergies Allergy/AdvReac Type Severity Reaction Status Date / Time cephalexin monohydrate Allergy Rash/Hives/ Verified 01/28/24 14:05 [From Keflex] Itching/Swe lling Review of Systems ROS Statement: Those systems with pertinent positive or pertinent negative responses have been documented in the HPI. ROS Other: All systems not noted in ROS Statement are negative. Constitutional: Reports: chills Eyes: Denies: eye pain ENT: Denies: ear pain Respiratory: Reports: cough, dyspnea Cardiovascular: Reports: chest pain Endocrine: Reports: fatigue Gastrointestinal: Reports: nausea, vomiting. Denies: abdominal pain Genitourinary: Denies: dysuria Musculoskeletal: Denies: back pain Neurological: Reports: as per HPI, weakness Past Medical History Past Medical History: Asthma, Coronary Artery Disease (CAD), Cancer, Chest Pain / Angina, COPD, Diabetes Mellitus, Deep Vein Thrombosis (DVT), GERD/Reflux, Hyperlipidemia, Hypertension, Myocardial Infarction (DE), Osteoarthritis (OA) Additional Past Medical History / Comment(s): mentally incapacitated per guardian, morbid obesity, Chronic kidney disease stage IV, chronic bronchitis, lobectomy for lung cancer, abdominal wall hernia R side, generalized weakness, gait dysfunction, falls, DJD T12 and L1, urine incontinence at times. The patient lives w/her guardian Marianela Syed who is new to this role so wasn't able to confirm health hx., gets bubble pack of meds set up by Visiting Physician- takes own meds per guardian Last Myocardial Infarction Date:: 01/20/09 History of Any Multi-Drug Resistant Organisms: VRE Date of last positivie culture/infection: 11/13/17 MDRO Source:: VRE URINE Past Surgical History: Section, Heart Catheterization, Heart Catheterization With Stent, Orthopedic Surgery Additional Past Surgical History / Comment(s): Lung lobectomy, ORIF RIGHT ULNA/RADIUS, left rotator cuff repair, cataract removals, heel surgery r/t infection (laterality unknown), colonoscopies/ benign polypectomy, PCI/ stent x2, guardian unable to confirm Past Anesthesia/Blood Transfusion Reactions: No Reported Reaction Date of Last Stent Placement:: 11/2016 Past Psychological History: Anxiety, Bipolar, Depression Smoking Status: Never smoker Past Alcohol Use History: None Reported Past Drug Use History: None Reported - Past Family History Brother(s) Family Medical History: Cancer General Exam Limitations: no limitations General appearance: alert, in no apparent distress Head exam: Present: normocephalic Eye exam: Present: normal appearance ENT exam: Present: mucous membranes dry Neck exam: Present: normal inspection Respiratory exam: Present: normal lung sounds bilaterally Cardiovascular Exam: Present: tachycardia GI/Abdominal exam: Present: soft. Absent: tenderness Extremities exam: Present: normal inspection Neurological exam: Present: alert, CN II-XII intact Expanded Neurological exam: Present: protecting the airway Speech: Present: fluid speech Cranial nerves: EOM's Intact: Normal Motor strength exam: RUE: 4, LUE: 4, RLE: 4, LLE: 4 Eye Response: (4) open spontaneously Motor Response: (6) obeys commands Verbal Response: (5) oriented Psychiatric exam: Present: normal affect, normal mood Skin exam: Present: normal color Course Vital Signs 01/28/24 01/28/24 01/28/24 12:13 12:17 13:59 Temperature 97.6 F 99.7 F H Pulse Rate 114 H 108 H Respiratory 22 30 H Rate Blood Pressure 144/75 152/98 O2 Sat by Pulse 100 100 Oximetry EKG Findings - EKG Results: EKG: interpreted by ERMD (Left axis. Frequent supraventricular premature complexes.), sinus rhythm, normal QRS, normal ST/T EKG shows: tachycardia Medical Decision Making - Medical Decision Making Was pt. sent in by a medical professional or institution (Dr. PA, JAVA PROGRAMMER, urgent care, hospital, or group home...) When possible be specific @ -No Did you speak to anyone other than the patient for history (EMS, parent, family, police, friend...)? What history was obtained from this source @ -No Did you review nursing and triage notes (agree or disagree)? Why? @ -I reviewed and agree with nursing and triage notes Were old charts reviewed (outside hosp., previous admission, EMS record, old EKG, old radiological studies, urgent care reports/EKG's, group home records)? Report findings @ -No old charts were reviewed Differential Diagnosis (chest pain, altered mental status, abdominal pain women, abdominal pain men, vaginal bleeding, weakness, fever, dyspnea, syncope, headache, dizziness, GI bleed, back pain, seizure, CVA, palpatations, mental health, musculoskeletal)? @ -Differential Weakness: Hypoglycemia, shock, sepsis, hyponatremia, anemia, infection, DE, ETOH, adverse medicine reaction, overdose, stroke, this is not meant to be an all-inclusive list. EKG interpreted by me (3pts min.). @ -As above X-rays interpreted by me (1pt min.). @ -Chest x-ray shows no acute CT interpreted by me (1pt min.). @ -CT brain without acute abnormality U/S interpreted by me (1pt. min.). @ -None done What testing was considered but not performed or refused? (CT, X-rays, U/S, labs)? Why? @ -None What meds were considered but not given or refused? Why? @ -None Did you discuss the management of the patient with other professionals (professionals i.e. , PA, JAVA PROGRAMMER, lab, RT, psych nurse, child protective services social worker, manager recruitment, teacher, personnel training officer, director case)? Give summary @ -Case was discussed with Dr. Jackson will admit covering Dr. Langston Was smoking cessation discussed for >3mins.? @ -No Was critical care preformed (if so, how long)? @ -31 minutes critical care Were there social determinants of health that impacted care today? How? (Homelessness, low income, unemployed, alcoholism, drug addiction, transportation, low edu. Level, literacy, decrease access to med. care, usp, rehab)? @ -No Was there de-escalation of care discussed even if they declined (Discuss DNR or withdrawal of care, Hospice)? DNR status @ -No What co-morbidities impacted this encounter? (DM, HTN, Smoking, COPD, CAD, Cancer, CVA, ARF, Chemo, Hep., AIDS, mental health diagnosis, sleep apnea, morbid obesity)? @ -None Was patient admitted / discharged? Hospital course, mention meds given and route, prescriptions, significant lab abnormalities, going to OR and other pertinent info. @ -Patient presents with generalized weakness. Patient does meet criteria for sepsis diagnosed at 1345. Blood culture, lactic acid, and IV antibiotics have a ll been ordered. IV fluids at 130. Patient will be admitted with urinary tract infection and sepsis. Admission orders written Undiagnosed new problem with uncertain prognosis? @ -No Drug Therapy requiring intensive monitoring for toxicity (Heparin, Nitro, Insulin, Cardizem)? @ -No Were any procedures done? @ -No Diagnosis/symptom? @ -UTI, sepsis, felipa Acute, or Chronic, or Acute on Chronic? @ -Acute,, acute Uncomplicated (without systemic symptoms) or Complicated (systemic symptoms)? @ -Default Side effects of treatment? @ -No Exacerbation, Progression, or Severe Exacerbation? @ -No Poses a threat to life or bodily function? How? (Chest pain, USA, DE, pneumonia, PE, COPD, DKA, ARF, appy, cholecystitis, CVA, Diverticulitis, Homicidal, Suicidal, threat to staff... and all critical care pts) @ -Threat for multiorgan dysfunction - Lab Data Result diagrams: 01/28/24 12:51 01/28/24 12:51 Lab Results 01/28/24 01/28/24 01/28/24 Range/Units 12:31 12:51 12:51 WBC 17.3 H (3.8-10.6) k/uL RBC 4.72 (3.80-5.40) m/uL Hgb 13.9 (11.4-16.0) gm/dL Hct 47.0 H (34.0-46.0) % MCV 99.6 (80.0-100.0) fL MCH 29.4 (25.0-35.0) pg MCHC 29.6 L (31.0-37.0) g/dL RDW 15.8 H (11.5-15.5) % Plt Count 324 (150-450) k/uL MPV 8.5 Neutrophils % 90 % Lymphocytes % 6 % Monocytes % 4 % Eosinophils % 0 % Basophils % 0 % Neutrophils # 15.5 H (1.3-7.7) k/uL Lymphocytes # 1.0 (1.0-4.8) k/uL Monocytes # 0.7 (0-1.0) k/uL Eosinophils # 0.0 (0-0.7) k/uL Basophils # 0.0 (0-0.2) k/uL Hypochromasia Moderate Macrocytosis Slight PT 10.0 (10.0-12.5) sec INR 0.9 (<1.2) APTT 25.6 (22.0-30.0) sec Sodium (137-145) mmol/L Potassium (3.5-5.1) mmol/L Chloride (98-107) mmol/L Carbon Dioxide (22-30) mmol/L Anion Gap BUN (7-17) mg/dL Creatinine (0.52-1.04) mg/dL Est GFR (CKD-EPI)AfAm (>60 ml/min/1.73 sqM) Est GFR (CKD-EPI)NonAf (>60 ml/min/1.73 sqM) Glucose (74-99) mg/dL Plasma Lactic Acid Orion (0.7-2.0) mmol/L Calcium (8.4-10.2) mg/dL Magnesium (1.6-2.3) mg/dL Total Bilirubin (0.2-1.3) mg/dL AST (14-36) U/L ALT (4-34) U/L Alkaline Phosphatase (38-126) U/L Creatine Kinase (30-135) U/L Troponin I (0.000-0.034) ng/mL NT-Pro-B Natriuret Pep pg/mL Total Protein (6.3-8.2) g/dL Albumin (3.5-5.0) g/dL TSH (0.465-4.680) mIU/L Urine Color Colorless Urine Appearance Cloudy H (Clear) Urine pH 5.5 (5.0-8.0) Ur Specific Langston 1.021 (1.001-1.035) Urine Protein 1+ H (Negative) Urine Glucose (UA) 3+ H (Negative) Urine Ketones 1+ H (Negative) Urine Blood Moderate H (Negative) Urine Nitrite Negative (Negative) Urine Bilirubin Negative (Negative) Urine Urobilinogen <2.0 (<2.0) mg/dL Ur Leukocyte Esterase Large H (Negative) Urine RBC 2 (0-5) /hpf Urine WBC 68 H (0-5) /hpf Ur Squamous Epith Cells <1 (0-4) /hpf Urine Bacteria Many H (None) /hpf Hyaline Casts 1 (0-2) /lpf Urine Mucus Rare H (None) /hpf Influenza Type A (PCR) (Not Detectd) Influenza Type B (PCR) (Not Detectd) RSV (PCR) (Not Detectd) SARS-CoV-2 (PCR) (Not Detectd) 06/01/28/24 01/28/24 Range/Units 12:51 12:51 12:51 WBC (3.8-10.6) k/uL RBC (3.80-5.40) m/uL Hgb (11.4-16.0) gm/dL Hct (34.0-46.0) % MCV (80.0-100.0) fL MCH (25.0-35.0) pg MCHC (31.0-37.0) g/dL RDW (11.5-15.5) % Plt Count (150-450) k/uL MPV Neutrophils % % Lymphocytes % % Monocytes % % Eosinophils % % Basophils % % Neutrophils # (1.3-7.7) k/uL Lymphocytes # (1.0-4.8) k/uL Monocytes # (0-1.0) k/uL Eosinophils # (0-0.7) k/uL Basophils # (0-0.2) k/uL Hypochromasia Macrocytosis PT (10.0-12.5) sec INR (<1.2) APTT (22.0-30.0) sec Sodium 133 L (137-145) mmol/L Potassium 4.6 (3.5-5.1) mmol/L Chloride 113 H (98-107) mmol/L Carbon Dioxide <5 L* (22-30) mmol/L Anion Gap JAVA PROGRAMMER BUN 44 H (7-17) mg/dL Creatinine 2.03 H (0.52-1.04) mg/dL Est GFR (CKD-EPI)AfAm 27 (>60 ml/min/1.73 sqM) Est GFR (CKD-EPI)NonAf 24 (>60 ml/min/1.73 sqM) Glucose 260 H (74-99) mg/dL Plasma Lactic Acid Orion 1.2 (0.7-2.0) mmol/L Calcium 9.6 (8.4-10.2) mg/dL Magnesium 2.5 H (1.6-2.3) mg/dL Total Bilirubin 0.6 (0.2-1.3) mg/dL AST 33 (14-36) U/L ALT 29 (4-34) U/L Alkaline Phosphatase 179 H (38-126) U/L Creatine Kinase 154 H (30-135) U/L Troponin I 0.053 H* (0.000-0.034) ng/mL NT-Pro-B Natriuret Pep 1710 pg/mL Total Protein 6.7 (6.3-8.2) g/dL Albumin 4.2 (3.5-5.0) g/dL TSH 0.363 L (0.465-4.680) mIU/L Urine Color Urine Appearance (Clear) Urine pH (5.0-8.0) Ur Specific Langston (1.001-1.035) Urine Protein (Negative) Urine Glucose (UA) (Negative) Urine Ketones (Negative) Urine Blood (Negative) Urine Nitrite (Negative) Urine Bilirubin (Negative) Urine Urobilinogen (<2.0) mg/dL Ur Leukocyte Esterase (Negative) Urine RBC (0-5) /hpf Urine WBC (0-5) /hpf Ur Squamous Epith Cells (0-4) /hpf Urine Bacteria (None) /hpf Hyaline Casts (0-2) /lpf Urine Mucus (None) /hpf Influenza Type A (PCR) (Not Detectd) Influenza Type B (PCR) (Not Detectd) RSV (PCR) (Not Detectd) SARS-CoV-2 (PCR) (Not Detectd) 01/28/24 Range/Units 12:51 WBC (3.8-10.6) k/uL RBC (3.80-5.40) m/uL Hgb (11.4-16.0) gm/dL Hct (34.0-46.0) % MCV (80.0-100.0) fL MCH (25.0-35.0) pg MCHC (31.0-37.0) g/dL RDW (11.5-15.5) % Plt Count (150-450) k/uL MPV Neutrophils % % Lymphocytes % % Monocytes % % Eosinophils % % Basophils % % Neutrophils # (1.3-7.7) k/uL Lymphocytes # (1.0-4.8) k/uL Monocytes # (0-1.0) k/uL Eosinophils # (0-0.7) k/uL Basophils # (0-0.2) k/uL Hypochromasia Macrocytosis PT (10.0-12.5) sec INR (<1.2) APTT (22.0-30.0) sec Sodium (137-145) mmol/L Potassium (3.5-5.1) mmol/L Chloride (98-107) mmol/L Carbon Dioxide (22-30) mmol/L Anion Gap BUN (7-17) mg/dL Creatinine (0.52-1.04) mg/dL Est GFR (CKD-EPI)AfAm (>60 ml/min/1.73 sqM) Est GFR (CKD-EPI)NonAf (>60 ml/min/1.73 sqM) Glucose (74-99) mg/dL Plasma Lactic Acid Orion (0.7-2.0) mmol/L Calcium (8.4-10.2) mg/dL Magnesium (1.6-2.3) mg/dL Total Bilirubin (0.2-1.3) mg/dL AST (14-36) U/L ALT (4-34) U/L Alkaline Phosphatase (38-126) U/L Creatine Kinase (30-135) U/L Troponin I (0.000-0.034) ng/mL NT-Pro-B Natriuret Pep pg/mL Total Protein (6.3-8.2) g/dL Albumin (3.5-5.0) g/dL TSH (0.465-4.680) mIU/L Urine Color Urine Appearance (Clear) Urine pH (5.0-8.0) Ur Specific Langston (1.001-1.035) Urine Protein (Negative) Urine Glucose (UA) (Negative) Urine Ketones (Negative) Urine Blood (Negative) Urine Nitrite (Negative) Urine Bilirubin (Negative) Urine Urobilinogen (<2.0) mg/dL Ur Leukocyte Esterase (Negative) Urine RBC (0-5) /hpf Urine WBC (0-5) /hpf Ur Squamous Epith Cells (0-4) /hpf Urine Bacteria (None) /hpf Hyaline Casts (0-2) /lpf Urine Mucus (None) /hpf Influenza Type A (PCR) Not Detected (Not Detectd) Influenza Type B (PCR) Not Detected (Not Detectd) RSV (PCR) Not Detected (Not Detectd) SARS-CoV-2 (PCR) Not Detected (Not Detectd) Disposition Clinical Impression: UTI (urinary tract infection), Sepsis, FELIPA (acute kidney injury) Disposition: ADMITTED IP TO THIS HOSP Is patient prescribed a controlled substance at d/c from ED?: No Referrals: Collin Waller MD [Primary Care Provider] - 1-2 days Time of Disposition: 13:48
[2024-01-28] MEDS: SODIUM CHLORIDE 0.9% 1,000 ML IV STA ×2 (12:44→14:12)
[2024-01-28 12:50] LABS: Appearance,Urine Cloudy (Clear); Bacteria,Urine Many /hpf; Bilirubin,Urine Negative (Negative); Blood,Urine Moderate (Negative); Color,Urine Colorless; Glucose,Urine (UA) 3+ (Negative); Hyaline Casts,Urine 1 /lpf (0-2); Ketones,Urine 1+ (Negative); Leukocyte Esterase,Urine Large (Negative); Mucus,Urine Rare /hpf; Nitrite,Urine Negative (Negative); PH, Urine 5.5 (5.0-8.0); Protein,Urine 1+ (Negative); RBC,Urine 2 /hpf (0-5); Specific Gravity,Urine 1.021 (1.001-1.035); Squamous Epithelial Cell,Urine <1 /hpf (0-4); Urobilinogen,Urine <2.0 mg/dL (<2.0); WBC,Urine 68 /hpf (0-5)
--- NOTE | 2024-01-28 13:19 | CT ---
EXAMINATION TYPE: CT brain wo con DATE OF EXAM: 01/28/2024 COMPARISON: None HISTORY: weakness CT DLP: 1138.[address] of the brain was performed. The ventricles, basal cisterns and sulci overlying the cerebral convexities demonstrate mild enlargem ent. There is no evidence for intracranial hemorrhage or sulcal effacement. There is decreased attenuation about the periventricular white matter and deep white matter of both c erebral hemispheres, compatible with chronic small vessel ischemia. Differential diagnosis does inclu de demyelination. No mass effects are seen.No midline shift. Osseous calvarium is intact. Right ocular prosthesis noted. Right temporal scalp hematoma. If symptoms persist consider MRI. IMPRESSION: 1. Age related atrophic and chronic small vessel ischemic change without acute intracranial process s een at this time.
[2024-01-28 13:32] LABS: Basophils % (A) 0 %; Eosinophils % (A) 0 %; HGB 13.9 gm/dL (11.4-16.0); Hypochromasia Moderate; Lymphocytes % (A) 6 %; MCH 29.4 pg (25.0-35.0); MCHC 29.6 g/dL (31.0-37.0); MCV 99.6 fL (80.0-100.0); Macrocytosis Slight; Mean Platelet Volume 8.5; Monocytes # (A) 0.7 k/uL (0-1.0); Monocytes % (A) 4 %; Neutrophils # (A) 15.5 k/uL (1.3-7.7); Neutrophils % (A) 90 %; Platelet Count 324 k/uL (150-450); RBC 4.72 m/uL (3.80-5.40); RDW 15.8 % (11.5-15.5); WBC 17.3 k/uL (3.8-10.6)
--- NOTE | 2024-01-28 13:41 | XR ---
EXAMINATION TYPE: XR chest 2V DATE OF EXAM: 01/28/2024 1:17 PM CLINICAL INDICATION:Female, 73 years old with history of Weakness; [facility] COMPARISON: Chest radiographs from 06/15/2023. TECHNIQUE: XR chest 2V Frontal and lateral views of the chest. FINDINGS: Lungs/Pleura: There is flattening of the diaphragm with increased lucency of the lungs. No evidence o f pneumothorax, pleural effusion or focal consolidation. Pulmonary vascularity: Unremarkable. Heart/mediastinum: Cardiomediastinal silhouette is unremarkable. Musculoskeletal: No acute osseous pathology. IMPRESSION: 1. No acute cardiopulmonary disease process. 2. COPD changes.
[2024-01-28 13:45] LABS: INR 0.9 (<1.2); Partial Thromboplastin Time 25.6 sec (22.0-30.0)
[2024-01-28 13:47] LABS: ALT 29 U/L (4-34); AST 33 U/L (14-36); African American GFR (CKD) 27 (>60 ml/min/1.73 sqM); Albumin 4.2 g/dL (3.5-5.0); Alkaline Phosphatase 179 U/L (38-126); Blood Urea Nitrogen 44 mg/dL (7-17); Calcium 9.6 mg/dL (8.4-10.2); Chloride 113 mmol/L (98-107); Creatine Kinase 154 U/L (30-135); Glucose 260 mg/dL (74-99); Magnesium 2.5 mg/dL (1.6-2.3); Non-African American GFR(CKD) 24 (>60 ml/min/1.73 sqM); Potassium 4.6 mmol/L (3.5-5.1); Sodium 133 mmol/L (137-145); Total Bilirubin 0.6 mg/dL (0.2-1.3); Total Protein 6.7 g/dL (6.3-8.2)
[2024-01-28 13:55] LABS: NT-Pro-B-Type Natriuretic Pept 1710 pg/mL
[2024-01-28] MEDS: LEVOFLOXACIN 750MG-D5W PMX 750 MG in DEXTROSE/WATER 1 150ML.BAG IVPB STA (13:56)
[2024-01-28 13:58] LABS: Carbon Dioxide <5 mmol/L (22-30)
[2024-01-28] MEDS ORDERED: NALOXONE 0.4 MG/ML 1 ML VIAL IV PRN (14:32)
[2024-01-28] MEDS: SODIUM CHLORIDE 0.9% 1,000 ML IV SCH (14:35)
[2024-01-28 14:47] LABS: VBG PH 7.03 (7.31-7.41)
[2024-01-28] MEDS: ONDANSETRON 4 MG/2 ML VIAL IVP PRN (15:23)
[2024-01-28 17:14] LABS: African American GFR (CKD) 30 (>60 ml/min/1.73 sqM); Blood Urea Nitrogen 43 mg/dL (7-17); Chloride 113 mmol/L (98-107); Glucose 290 mg/dL (74-99); Non-African American GFR(CKD) 26 (>60 ml/min/1.73 sqM); Potassium 4.3 mmol/L (3.5-5.1); Sodium 133 mmol/L (137-145)
[2024-01-28] MEDS ORDERED: DEXTROSE 50% SYRINGE 50 ML IVP PRN (17:17)
[2024-01-28 17:25] LABS: Carbon Dioxide <5 mmol/L (22-30)
[2024-01-28 18:03] LABS: Glucose,Whole Blood 340 mg/dL (70-110)
[2024-01-28] MEDS: INSULIN ASPART (NovoLOG) 100 UNIT/ML VIAL SQ SCH (18:10)
[2024-01-28] MEDS: ACETAMINOPHEN TAB 325 MG TAB PO SCH (18:10)
[2024-01-28] MEDS: SODIUM CHLORIDE 0.9% 2,000 ML IV ONE (19:27)
[2024-01-28] MEDS: SODIUM BICARB 8.4% 50 ML SYR (1 MEQ/ML) IV STA ×2 (19:28→20:41)
[2024-01-28 19:32] LABS: Glucose,Whole Blood 266 mg/dL (70-110)
[2024-01-28 20:15] LABS: Glucose,Whole Blood 251 mg/dL (70-110)
[2024-01-28] MEDS: D5-0.45% NACL WITH KCL 20MEQ/L 1,000 ML IV SCH (20:26)
[2024-01-28 20:28] LABS: ABG Base Excess -21.1 mmol/L; ABG Oxygen Saturation 98.2 % (94-97); ABG PO2 165 mmHg (83-108); ABG TCO2 6 mmol/L (19-24); Allen Test Performed? Yes
[2024-01-28 20:38] LABS: ABG PH 7.15 (7.35-7.45)
[2024-01-28 20:39] LABS: ABG HCO3 6 mmol/L (21-25); ABG PCO2 17 mmHg (35-45)
[2024-01-28] MEDS: INSULIN DETEMIR (LEVEMIR) 100 UNIT/ML SYR SQ SCH (20:41)
[2024-01-28] MEDS ORDERED: FAMOTIDINE 20 MG TAB PO SCH (21:00)
[2024-01-28 21:16] LABS: Glucose,Whole Blood 218 mg/dL (70-110)
--- NOTE | 2024-01-28 21:20 | P.HPIM ---
History of Present Illness H&P Date: 01/28/24 Chief Complaint: Weakness This is a 73-year-old patient, follows with visiting physicians Dr. Waller. At her baseline patient does use a cane sometimes a walker. Legal guardian is Marianela Syed Patient presents with weakness. Decreased appetite. Last bowel movement was about a week ago. Normally has a bowel movement average about every 4 days. Denies any fever and chills. Has a dry cough for last 3 days. Weak and tired Review of systems: GEN.: Tired, decreased appetite EYES: None HEENT: Decreased hearing NECK: None RESPIRATORY: As above CARDIOVASCULAR: Chest pain] GASTROINTESTINAL: As above GENITOURINARY: Incontinent MUSCULOSKELETAL: Chronic joint pains LYMPHATICS: None HEMATOLOGICAL: None PSYCHIATRY: None NEUROLOGICAL: Does use a cane walker Past medical history to include: Depression, hyperlipidemia, urinary stress incontinence, diabetes mellitus type 2, CAD, COPD, DVT, GERD, hyperlipidemia, mentally incapacitated, chronic kidney disease stage IV, right lobectomy for lung cancer, abdominal wall hernia, Social history: Legal guardian Marianela Syed. Past history of alcohol dependence. Has 2 roommates. Has a caregiver. Uses a walker/cane Physical examination: VITAL SIGNS: 99.7, 109, 38, 157 x 75, 100% on 3 L GENERAL: reclining in bed, tired EYES: Pupils equal. Conjunctiva normal. HEENT: External appearance of nose and ears normal, oral cavity dry mucous membranes. NECK: JVD possibly raised; masses not palpable. HEART: First and second heart sounds are normal; edema decreased LUNGS: Respiratory rate increased; decreased breath sounds. ABDOMEN: Soft, non-abdominal tenderness, no guarding rigidity abdominal wall hernia nontender, liver spleen not palpable, no masses palpable. PSYCH: Answering simple questions appropriately MUSCULOSKELETAL:No Clubbing/cyanosis;muscles-grossly intact. OA NEUROLOGICAL: Cranial nerves grossly intact; no facial asymmetry, moving all 4 limbs INVESTIGATIONS, reviewed in the clinical context: ABG: pH 7.03 pCO2 18 bicarbonate 5 sodium 133 potassium 4.3 bicarb less than 5 BUN 43 creatinine 1.86 blood glucose 290 Troponin I 0.053 TSH 0.363 EKG tracing personally reviewed by me-sinus tachycardia. Nonspecific ST-T wave changes. Chest x-ray film personally reviewed by me-questionable infiltrate CT brain: Age-related chronic changes Assessment and plan: -Probable pneumonia. 6 suspect gram-negative organism IV ceftriaxone -Diabetic ketoacidosis Patient be moved to the ICU. Insulin drip per protocol -Chronic congestive heart failure exacerbation from diastolic dysfunction. EF 55-60%.: Euvolemic -Gallstones, asymptomatic -Mild, hyponatremia,: -Morbid obesity BMI 51.7 Weight loss measures -Diabetes mellitus type 2 on insulin, uncontrolled with hyperglycemia -Depression and anxiety Abilify 10 mg a day. Cymbalta 60 mg twice a day. -Essential hypertension, Norvasc Lopressor 25 mg twice a day. Cozaar -Hyperuricemia Allopurinol 100 mg a day -GERD Protonix 20 mg daily -Chronic urinary stress incontinence Oxybutynin 15 mg a day, Myrbetriq 25 mg a day -Chronic arthritis with pain [place] 10 1 tablet every 6 when necessary -Chronic hard of hearing -Chronic medical debility. At her baseline uses a walker -Legal guardian: Marianela Durants Discussed with the patient. Past Medical History Past Medical History: Asthma, Coronary Artery Disease (CAD), Cancer, Chest Pain / Angina, COPD, Diabetes Mellitus, Deep Vein Thrombosis (DVT), GERD/Reflux, Hyperlipidemia, Hypertension, Myocardial Infarction ([place]), Osteoarthritis (OA) Additional Past Medical History / Comment(s): mentally incapacitated per guardian, morbid obesity, Chronic kidney disease stage IV, chronic bronchitis, lobectomy for lung cancer, abdominal wall hernia R side, generalized weakness, gait dysfunction, falls, DJD T12 and L1, urine incontinence at times. The patient lives w/her guardian Marianela Syed who is new to this role so wasn't able to confirm health hx., gets bubble pack of meds set up by Visiting Physician-fiona patel own meds per guardian Last Myocardial Infarction Date:: 01/20/09 History of Any Multi-Drug Resistant Organisms: VRE Date of last positivie culture/infection: 11/13/17 MDRO Source:: VRE URINE Past Surgical History: Section, Heart Catheterization, Heart Catheterization With Stent, Orthopedic Surgery Additional Past Surgical History / Comment(s): Lung lobectomy, ORIF RIGHT ULNA/RADIUS, left rotator cuff repair, cataract removals, heel surgery r/t infection (laterality unknown), colonoscopies/ benign polypectomy, PCI/ stent x2, guardian unable to confirm Past Anesthesia/Blood Transfusion Reactions: No Reported Reaction Date of Last Stent Placement:: 11/2016 Past Psychological History: Anxiety, Bipolar, Depression Smoking Status: Never smoker Past Alcohol Use History: None Reported Past Drug Use History: None Reported - Past Family History Brother(s) Family Medical History: Cancer Medications and Allergies Home Medications Medication Instructions Recorded Confirmed Type Atorvastatin [Lipitor] 40 mg PO HS 11/13/17 01/28/24 History ARIPiprazole [Abilify] 10 mg PO DAILY 07/22/21 01/28/24 History DULoxetine HCL [Cymbalta] 60 mg PO BID 07/22/21 01/28/24 History Mirabegron [Myrbetriq] 25 mg PO DAILY 07/22/21 01/28/24 History traZODone HCL 150 mg PO HS 07/22/21 01/28/24 History allopurinoL [Zyloprim] 100 mg PO DAILY 01/26/22 01/28/24 History Omeprazole [PriLOSEC] 20 mg PO DAILY 06/01/23 01/28/24 History Oxybutynin ER [Ditropan XL] 15 mg PO DAILY 06/01/23 01/28/24 History Metoprolol Tartrate [Lopressor] 25 mg PO BID #0 06/18/23 01/28/24 Rx Empagliflozin [Jardiance] 10 mg PO DAILY 01/05/24 01/28/24 History Furosemide [Lasix] 40 mg PO DAILY 01/05/24 01/28/24 History Losartan [Cozaar] 25 mg PO DAILY 01/05/24 01/28/24 History amLODIPine [Norvasc] 5 mg PO DAILY 01/05/24 01/28/24 History Acetaminophen [Tylenol 8 Hour] 650 mg PO Q6H 01/28/24 01/28/24 History Insulin Glargine,Hum.rec.anlog 30 unit SQ HS 01/28/24 01/28/24 History [Basaglar Kwikpen U-100] Pantoprazole Sodium [Protonix] 20 mg PO DAILY 01/28/24 01/28/24 History Allergies Allergy/AdvReac Type Severity Reaction Status Date / Time cephalexin monohydrate Allergy Rash/Hives/ Verified 01/28/24 14:05 [From Keflex] Itching/Swe lling Physical Exam Vitals: Vital Signs Temp Pulse Resp BP Pulse Ox 01/28/24 21:02 30 H 01/28/24 21:00 107 H 28 H 138/78 100 01/28/24 20:00 97 32 H 158/60 100 01/28/24 19:47 101 H 30 H 150/66 98 01/28/24 18:34 110 H 38 H 114/66 99 01/28/24 18:11 109 H 38 H 157/75 01/28/24 15:18 99.0 F 107 H 28 H 175/77 100 01/28/24 13:59 108 H 30 H 152/98 100 01/28/24 12:17 99.7 F H 01/28/24 12:13 97.6 F 114 H 22 144/75 100 Intake and Output 01/28/24 01/28/24 01/28/24 06:59 14:59 22:59 Output Total 250 Balance -250 Output: Urine 250 Uretheral (Mi) 250 Other: Weight 108.409 kg Results CBC & Chem 7: 01/28/24 12:51 01/28/24 16:02 Labs: Abnormal Lab Results - Last 24 Hours (Table) 01/28/24 01/28/24 01/28/24 Range/Units 12:31 12:51 12:51 WBC 17.3 H (3.8-10.6) k/uL Hct 47.0 H (34.0-46.0) % MCHC 29.6 L (31.0-37.0) g/dL RDW 15.8 H (11.5-15.5) % Neutrophils # 15.5 H (1.3-7.7) k/uL ABG pH (7.35-7.45) ABG pCO2 (35-45) mmHg ABG pO2 (83-108) mmHg ABG HCO3 (21-25) mmol/L ABG Total CO2 (19-24) mmol/L ABG O2 Saturation (94-97) % VBG pH (7.31-7.41) VBG pCO2 (37-51) mmHg VBG HCO3 (24-28) mmol/L Sodium 133 L (137-145) mmol/L Chloride 113 H (98-107) mmol/L Carbon Dioxide <5 L* (22-30) mmol/L BUN 44 H (7-17) mg/dL Creatinine 2.03 H (0.52-1.04) mg/dL Glucose 260 H (74-99) mg/dL POC Glucose (mg/dL) (70-110) mg/dL Magnesium 2.5 H (1.6-2.3) mg/dL Alkaline Phosphatase 179 H (38-126) U/L Creatine Kinase 154 H (30-135) U/L Troponin I (0.000-0.034) ng/mL TSH 0.363 L (0.465-4.680) mIU/L Urine Appearance Cloudy H (Clear) Urine Protein 1+ H (Negative) Urine Glucose (UA) 3+ H (Negative) Urine Ketones 1+ H (Negative) Urine Blood Moderate H (Negative) Ur Leukocyte Esterase Large H (Negative) Urine WBC 68 H (0-5) /hpf Urine Bacteria Many H (None) /hpf Urine Mucus Rare H (None) /hpf 01/28/24 01/28/24 01/28/24 Range/Units 12:51 14:13 16:02 WBC (3.8-10.6) k/uL Hct (34.0-46.0) % MCHC (31.0-37.0) g/dL RDW (11.5-15.5) % Neutrophils # (1.3-7.7) k/uL ABG pH (7.35-7.45) ABG pCO2 (35-45) mmHg ABG pO2 (83-108) mmHg ABG HCO3 (21-25) mmol/L ABG Total CO2 (19-24) mmol/L ABG O2 Saturation (94-97) % VBG pH 7.03 L* (7.31-7.41) VBG pCO2 18 L* (37-51) mmHg VBG HCO3 5 L* (24-28) mmol/L Sodium 133 L (137-145) mmol/L Chloride 113 H (98-107) mmol/L Carbon Dioxide <5 L* (22-30) mmol/L BUN 43 H (7-17) mg/dL Creatinine 1.86 H (0.52-1.04) mg/dL Glucose 290 H (74-99) mg/dL POC Glucose (mg/dL) (70-110) mg/dL Magnesium (1.6-2.3) mg/dL Alkaline Phosphatase (38-126) U/L Creatine Kinase (30-135) U/L Troponin I 0.053 H* (0.000-0.034) ng/mL TSH (0.465-4.680) mIU/L Urine Appearance (Clear) Urine Protein (Negative) Urine Glucose (UA) (Negative) Urine Ketones (Negative) Urine Blood (Negative) Ur Leukocyte Esterase (Negative) Urine WBC (0-5) /hpf Urine Bacteria (None) /hpf Urine Mucus (None) /hpf 01/28/24 01/28/24 01/28/24 Range/Units 18:01 19:31 20:13 WBC (3.8-10.6) k/uL Hct (34.0-46.0) % MCHC (31.0-37.0) g/dL RDW (11.5-15.5) % Neutrophils # (1.3-7.7) k/uL ABG pH (7.35-7.45) ABG pCO2 (35-45) mmHg ABG pO2 (83-108) mmHg ABG HCO3 (21-25) mmol/L ABG Total CO2 (19-24) mmol/L ABG O2 Saturation (94-97) % VBG pH (7.31-7.41) VBG pCO2 (37-51) mmHg VBG HCO3 (24-28) mmol/L Sodium (137-145) mmol/L Chloride (98-107) mmol/L Carbon Dioxide (22-30) mmol/L BUN (7-17) mg/dL Creatinine (0.52-1.04) mg/dL Glucose (74-99) mg/dL POC Glucose (mg/dL) 340 H 266 H 251 H (70-110) mg/dL Magnesium (1.6-2.3) mg/dL Alkaline Phosphatase (38-126) U/L Creatine Kinase (30-135) U/L Troponin I (0.000-0.034) ng/mL TSH (0.465-4.680) mIU/L Urine Appearance (Clear) Urine Protein (Negative) Urine Glucose (UA) (Negative) Urine Ketones (Negative) Urine Blood (Negative) Ur Leukocyte Esterase (Negative) Urine WBC (0-5) /hpf Urine Bacteria (None) /hpf Urine Mucus (None) /hpf 01/28/24 Range/Units 20:25 WBC (3.8-10.6) k/uL Hct (34.0-46.0) % MCHC (31.0-37.0) g/dL RDW (11.5-15.5) % Neutrophils # (1.3-7.7) k/uL ABG pH 7.15 L* (7.35-7.45) ABG pCO2 17 L* (35-45) mmHg ABG pO2 165 H (83-108) mmHg ABG HCO3 6 L* (21-25) mmol/L ABG Total CO2 6 L (19-24) mmol/L ABG O2 Saturation 98.2 H (94-97) % VBG pH (7.31-7.41) VBG pCO2 (37-51) mmHg VBG HCO3 (24-28) mmol/L Sodium (137-145) mmol/L Chloride (98-107) mmol/L Carbon Dioxide (22-30) mmol/L BUN (7-17) mg/dL Creatinine (0.52-1.04) mg/dL Glucose (74-99) mg/dL POC Glucose (mg/dL) (70-110) mg/dL Magnesium (1.6-2.3) mg/dL Alkaline Phosphatase (38-126) U/L Creatine Kinase (30-135) U/L Troponin I (0.000-0.034) ng/mL TSH (0.465-4.680) mIU/L Urine Appearance (Clear) Urine Protein (Negative) Urine Glucose (UA) (Negative) Urine Ketones (Negative) Urine Blood (Negative) Ur Leukocyte Esterase (Negative) Urine WBC (0-5) /hpf Urine Bacteria (None) /hpf Urine Mucus (None) /hpf
[2024-01-28 21:38] LABS: African American GFR (CKD) 35 (>60 ml/min/1.73 sqM); Blood Urea Nitrogen 44 mg/dL (7-17); Chloride 116 mmol/L (98-107); Glucose 220 mg/dL (74-99); Non-African American GFR(CKD) 30 (>60 ml/min/1.73 sqM); Potassium 3.8 mmol/L (3.5-5.1); Sodium 134 mmol/L (137-145)
[2024-01-28 21:44] LABS: Carbon Dioxide <5 mmol/L (22-30)
[2024-01-28 22:34] LABS: Glucose,Whole Blood 292 mg/dL (70-110)
[2024-01-28] MEDS: INSULIN REGULAR 100 UNIT in SODIUM CHLORIDE 0.9% 100 ML IV SCH (22:41)
[2024-01-28] MEDS: FAMOTIDINE 20 MG TAB PO SCH (23:03)
[2024-01-28] MEDS: DULoxetine HCL 60 MG CAPSULE.DR PO SCH (23:03)
[2024-01-28] MEDS: METOPROLOL TARTRATE 25 MG TAB PO SCH (23:03)
[2024-01-28] MEDS: ATORVASTATIN 40 MG TAB PO SCH (23:03)
[2024-01-28] MEDS: traZODone HCL 50 MG TAB PO SCH (23:06)
[2024-01-28 23:51] LABS: Glucose,Whole Blood 224 mg/dL (70-110)
[2024-01-29 00:46] LABS: African American GFR (CKD) 41 (>60 ml/min/1.73 sqM); Blood Urea Nitrogen 41 mg/dL (7-17); Chloride 116 mmol/L (98-107); Glucose 201 mg/dL (74-99); Non-African American GFR(CKD) 36 (>60 ml/min/1.73 sqM); Phosphorus 2.6 mg/dL (2.5-4.5); Potassium 3.1 mmol/L (3.5-5.1); Sodium 135 mmol/L (137-145)
[2024-01-29 01:03] LABS: Carbon Dioxide <5 mmol/L (22-30)
[2024-01-29 01:14] LABS: Glucose,Whole Blood 158 mg/dL (70-110)
[2024-01-29] MEDS ORDERED: Potassium Replacement Protocol 1 EACH MISC MISCELLANE PRN (01:37)
[2024-01-29] MEDS: POTASSIUM CHLORIDE ER 20 MEQ TAB.ER PO SCH (02:53)
[2024-01-29 03:43] LABS: Glucose,Whole Blood 56 mg/dL (70-110)
[2024-01-29] MEDS: DEXTROSE 50% SYRINGE 50 ML IVP PRN (03:53)
[2024-01-29] MEDS: DEXTROSE 5% IN WATER 1,000 ML with SODIUM BICARB (1 MEQ/ML) 150 ML IV SCH ×2 (03:59→21:43)
[2024-01-29 04:16] LABS: Glucose,Whole Blood 163 mg/dL (70-110)
[2024-01-29 04:32] LABS: ALT 24 U/L (4-34); AST 47 U/L (14-36); African American GFR (CKD) 47 (>60 ml/min/1.73 sqM); Albumin 2.7 g/dL (3.5-5.0); Alkaline Phosphatase 117 U/L (38-126); Anion Gap 10 mmol/L; Blood Urea Nitrogen 40 mg/dL (7-17); Calcium 7.9 mg/dL (8.4-10.2); Chloride 117 mmol/L (98-107); Non-African American GFR(CKD) 41 (>60 ml/min/1.73 sqM); Phosphorus 1.7 mg/dL (2.5-4.5); Sodium 134 mmol/L (137-145); Total Bilirubin 0.4 mg/dL (0.2-1.3)
[2024-01-29 05:38] LABS: Glucose,Whole Blood 352 mg/dL (70-110)
[2024-01-29 06:12] LABS: Glucose 49 mg/dL (74-99)
[2024-01-29 06:13] LABS: Carbon Dioxide 7 mmol/L (22-30)
[2024-01-29 07:01] LABS: Glucose,Whole Blood 296 mg/dL (70-110)
[2024-01-29 07:54] LABS: African American GFR (CKD) 45 (>60 ml/min/1.73 sqM); Anion Gap 7 mmol/L; Blood Urea Nitrogen 37 mg/dL (7-17); Carbon Dioxide 11 mmol/L (22-30); Chloride 112 mmol/L (98-107); Glucose 268 mg/dL (74-99); Non-African American GFR(CKD) 39 (>60 ml/min/1.73 sqM); Sodium 130 mmol/L (137-145)
[2024-01-29 07:57] LABS: Anisocytosis Slight; Basophils % (A) 0 %; Eosinophils # (A) 0.1 k/uL (0-0.7); Eosinophils % (A) 1 %; HCT 32.7 % (34.0-46.0); Lymphocytes # (A) 0.6 k/uL (1.0-4.8); Lymphocytes % (A) 6 %; MCH 30.3 pg (25.0-35.0); MCHC 31.6 g/dL (31.0-37.0); Macrocytosis Slight; Mean Platelet Volume 8.1; Monocytes # (A) 0.4 k/uL (0-1.0); Monocytes % (A) 4 %; Neutrophils # (A) 7.9 k/uL (1.3-7.7); Neutrophils % (A) 89 %; Platelet Count 184 k/uL (150-450); RBC 3.41 m/uL (3.80-5.40); RDW 16.4 % (11.5-15.5)
[2024-01-29 07:58] LABS: HGB 10.3 gm/dL (11.4-16.0)
[2024-01-29 08:01] LABS: Phosphorus 2.1 mg/dL (2.5-4.5); Potassium 3.9 mmol/L (3.5-5.1)
[2024-01-29 08:02] LABS: Glucose,Whole Blood 148 mg/dL (70-110)
[2024-01-29] MEDS ORDERED: NON FORMULARY DRUG (Pantoprazole Sodium [Protonix] 20 MG Tablet) PO SCH (09:00)
[2024-01-29] MEDS ORDERED: DAPAGLIFLOZIN PROPANEDIOL 5 MG TABLET PO SCH (09:00)
[2024-01-29 09:14] LABS: Glucose,Whole Blood 168 mg/dL (70-110)
[2024-01-29] MEDS: amLODIPine 5 MG TAB PO SCH (09:50)
[2024-01-29] MEDS: LOSARTAN 25 MG TAB PO SCH (09:51)
[2024-01-29] MEDS: allopurinoL 100 MG TAB PO SCH (09:51)
[2024-01-29] MEDS: PANTOPRAZOLE 40 MG TABLET PO SCH (09:51)
[2024-01-29] MEDS: ARIPiprazole 10 MG TAB PO SCH (09:51)
[2024-01-29] MEDS: OXYBUTYNIN 15 MG TAB.ER.24 PO SCH (09:51)
[2024-01-29] MEDS: NON FORMULARY DRUG (Mirabegron [Myrbetriq] 25 MG Tablet) PO SCH (09:52)
[2024-01-29 10:45] LABS: Glucose,Whole Blood 135 mg/dL (70-110)
[2024-01-29 12:07] LABS: Glucose,Whole Blood 141 mg/dL (70-110)
--- NOTE | 2024-01-29 12:13 | P.CNPUL ---
History of Present Illness Consult date: 01/29/24 Requesting physician: Augustus Jackson Reason for consult: dyspnea Chief complaint: 3-day history of progressive weakness History of present illness: This is a pleasant 73-year-old female patient with a history of coronary artery disease lung cancer with previous lobectomy, chronic kidney disease stage IV, diabetes mellitus, hypertension, hyperlipidemia. Still has bipolar disorder and has a guardian with whom she resides. To the emergency room yesterday with a 3- day history of progressive weakness and inability to get up out of bed. She did have some shortness of breath with a mild nonproductive cough.'s not mild nausea. No acute cardiopulmonary process. CT scan of the brain revealed age- related atrophic and chronic small vessel ischemic change without acute intracranial process. She was initially found to be in diabetic ketoacidosis with a bicarb of less than 5 and acetone positive. Urinalysis was cloudy with positive ketones moderate blood and many bacteria. Viral screen was negative. She is seen today in consultation in the emergency department. She is currently resting on a stretcher. Awake and alert in no acute distress. She is a poor historian. She is maintaining good O2 saturations in the upper 90s on room air. She has been afebrile. Hemodynamically stable. Most recent lab results reveal white count 9.0. Hemoglobin 10.3. Platelets 184. Sodium 130. Potassium 3.9. Bicarb 11. Anion gap 7. BUN 37. Creatinine 1.33. Glucose 268. She is currently on an insulin drip at 0.012 units/kg/h. She is on D5 and half-normal saline with 20 KCl at 150 MLS per hour. Antibiotics in the form of ceftriaxone. Review of Systems REVIEW OF SYSTEMS: CONSTITUTIONAL: Positive for 3 days of progressive weakness. EYES: Denies change in vision. EARS, NOSE, MOUTH, THROAT: Denies headaches, denies sore throat. CARDIOVASCULAR: Denies chest pain, palpitations or syncopal episodes. RESPIRATORY: Positive for shortness of breath, cough, congestion no hemoptysis. GASTROINTESTINAL: Denies change in appetite, denies abdominal pain GENITOURINARY: Denies hematuria, denies infections. MUSKULOSKELETAL: Denies pain, denies swelling. INTEGUMENTARY: Denies rash, denies eczema. NEUROLOGICAL: Denies recent memory loss, no recent seizure activity. PSYCHIATRIC: Denies anxiety, denies depression. HEMATOLOGIC/LYMPHATIC: Denies anemia, denies enlarged lymph nodes. Past Medical History Past Medical History: Asthma, Coronary Artery Disease (CAD), Cancer, Chest Pain / Angina, COPD, Diabetes Mellitus, Deep Vein Thrombosis (DVT), GERD/Reflux, Hyperlipidemia, Hypertension, Myocardial Infarction ([place]), Osteoarthritis (OA) Additional Past Medical History / Comment(s): mentally incapacitated per guardian, morbid obesity, Chronic kidney disease stage IV, chronic bronchitis, lobectomy for lung cancer, abdominal wall hernia R side, generalized weakness, gait dysfunction, falls, DJD T12 and L1, urine incontinence at times. The patient lives w/her guardian Marianela Syed who is new to this role so wasn't able to confirm health hx., gets bubble pack of meds set up by Visiting Physician-fiona patel own meds per guardian Last Myocardial Infarction Date:: 01/20/09 History of Any Multi-Drug Resistant Organisms: VRE Date of last positivie culture/infection: 11/13/17 MDRO Source:: VRE URINE Past Surgical History: Section, Heart Catheterization, Heart Catheterization With Stent, Orthopedic Surgery Additional Past Surgical History / Comment(s): Lung lobectomy, ORIF RIGHT ULNA/RADIUS, left rotator cuff repair, cataract removals, heel surgery r/t infection (laterality unknown), colonoscopies/ benign polypectomy, PCI/ stent x2, guardian unable to confirm Past Anesthesia/Blood Transfusion Reactions: No Reported Reaction Date of Last Stent Placement:: 11/2016 Past Psychological History: Anxiety, Bipolar, Depression Smoking Status: Never smoker Past Alcohol Use History: None Reported Past Drug Use History: None Reported - Past Family History Brother(s) Family Medical History: Cancer Medications and Allergies Home Medications Medication Instructions Recorded Confirmed Type Atorvastatin [Lipitor] 40 mg PO HS 11/13/17 01/28/24 History ARIPiprazole [Abilify] 10 mg PO DAILY 07/22/21 01/28/24 History DULoxetine HCL [Cymbalta] 60 mg PO BID 07/22/21 01/28/24 History Mirabegron [Myrbetriq] 25 mg PO DAILY 07/22/21 01/28/24 History traZODone HCL 150 mg PO HS 07/22/21 01/28/24 History allopurinoL [Zyloprim] 100 mg PO DAILY 01/26/22 01/28/24 History Omeprazole [PriLOSEC] 20 mg PO DAILY 06/01/23 01/28/24 History Oxybutynin ER [Ditropan XL] 15 mg PO DAILY 06/01/23 01/28/24 History Metoprolol Tartrate [Lopressor] 25 mg PO BID #0 06/18/23 01/28/24 Rx Empagliflozin [Jardiance] 10 mg PO DAILY 01/05/24 01/28/24 History Furosemide [Lasix] 40 mg PO DAILY 01/05/24 01/28/24 History Losartan [Cozaar] 25 mg PO DAILY 01/05/24 01/28/24 History amLODIPine [Norvasc] 5 mg PO DAILY 01/05/24 01/28/24 History Acetaminophen [Tylenol 8 Hour] 650 mg PO Q6H 01/28/24 01/28/24 History Insulin Glargine,Hum.rec.anlog 30 unit SQ HS 01/28/24 01/28/24 History [Basaglar Kwikpen U-100] Pantoprazole Sodium [Protonix] 20 mg PO DAILY 01/28/24 01/28/24 History Allergies Allergy/AdvReac Type Severity Reaction Status Date / Time cephalexin monohydrate Allergy Rash/Hives/ Verified 01/28/24 14:05 [From Keflex] Itching/Swe lling Physical Exam Vitals: Vital Signs Temp Pulse Pulse Resp BP Pulse Ox 01/29/24 10:00 103 H 14 129/71 97 01/29/24 09:00 125 H 20 110/76 99 01/29/24 08:00 108 H 22 125/94 100 01/29/24 07:15 112 H 21 132/56 99 01/29/24 06:00 108 H 28 H 111/81 99 01/29/24 05:00 100 28 H 105/94 100 01/29/24 04:15 107 H 01/29/24 04:00 112 H 30 H 133/74 99 01/29/24 03:00 107 H 29 H 118/60 98 01/28/24 23:00 110 H 26 H 122/89 98 01/28/24 21:54 101 H 31 H 128/63 100 06/21/24 21:02 30 H 01/28/24 21:00 107 H 28 H 138/78 100 01/28/24 20:00 97 32 H 158/60 100 01/28/24 19:47 101 H 30 H 150/66 98 01/28/24 18:34 110 H 38 H 114/66 99 01/28/24 18:11 109 H 38 H 157/75 01/28/24 15:18 99.0 F 107 H 28 H 175/77 100 01/28/24 13:59 108 H 30 H 152/98 100 01/28/24 12:17 99.7 F H 01/28/24 12:13 97.6 F 114 H 22 144/75 100 Intake and Output 01/28/24 01/29/24 01/29/24 22:59 06:59 14:59 Intake Total 79.928 18.694 Output Total 500 Balance -420.072 18.694 Intake: Intake, IV Titration 79.928 18.694 Amount Insulin Regular 100 unit 79.928 18.694 In Sodium Chloride 0.9% 100 ml @ 0.1 UNITS/KG/HR 10.949 mls/hr IV .Q9H14M [facility] Rx#:[id number] Output: Urine 500 GENERAL EXAM: Alert, pleasant, poor historian, 73-year-old female, on room air, in no apparent distress. HEAD: Normocephalic. EYES: Normal reaction of pupils, equal size. NOSE: Clear with pink turbinates. THROAT: No erythema or exudates. NECK: No masses, no JVD. CHEST: No chest wall deformity. LUNGS: Equal air entry with no crackles, wheeze, rhonchi or dullness. CVS: S1 and S2 normal with no audible murmur, regular rhythm. ABDOMEN: No hepatosplenomegaly, normal bowel sounds, no guarding or rigidity. SPINE: No scoliosis or deformity SKIN: No rashes CENTRAL NERVOUS SYSTEM: No focal deficits, tone is normal in all 4 extremities. EXTREMITIES: There is no peripheral edema. No clubbing, no cyanosis. Peripheral pulses are intact. Results - Laboratory Findings CBC and BMP: 01/29/24 07:00 01/29/24 07:00 ABG ABG pH 7.15 (7.35-7.45) L* 01/28/24 20:25 ABG pCO2 17 mmHg (35-45) L* 01/28/24 20:25 ABG pO2 165 mmHg (83-108) H 01/28/24 20:25 ABG O2 Saturation 98.2 % (94-97) H 01/28/24 20:25 PT/INR, D-dimer PT 10.0 sec (10.0-12.5) 01/28/24 12:51 INR 0.9 (<1.2) 01/28/24 12:51 Abnormal lab findings: Abnormal Labs 01/28/24 01/28/24 01/28/24 12:31 12:51 12:51 WBC 17.3 H RBC Hgb Hct 47.0 H MCHC 29.6 L RDW 15.8 H Neutrophils # 15.5 H Lymphocytes # ABG pH ABG pCO2 ABG pO2 ABG HCO3 ABG Total CO2 ABG O2 Saturation VBG pH VBG pCO2 VBG HCO3 Sodium 133 L Potassium Chloride 113 H Carbon Dioxide <5 L* BUN 44 H Creatinine 2.03 H Glucose 260 H POC Glucose (mg/dL) Calcium Phosphorus Magnesium 2.5 H AST Alkaline Phosphatase 179 H Creatine Kinase 154 H Troponin I Total Protein Albumin TSH 0.363 L Urine Appearance Cloudy H Urine Protein 1+ H Urine Glucose (UA) 3+ H Urine Ketones 1+ H Urine Blood Moderate H Ur Leukocyte Esterase Large H Urine WBC 68 H Urine Bacteria Many H Urine Mucus Rare H 01/28/24 01/28/24 01/28/24 12:51 14:13 16:02 WBC RBC Hgb Hct MCHC RDW Neutrophils # Lymphocytes # ABG pH ABG pCO2 ABG pO2 ABG HCO3 ABG Total CO2 ABG O2 Saturation VBG pH 7.03 L* VBG pCO2 18 L* VBG HCO3 5 L* Sodium 133 L Potassium Chloride 113 H Carbon Dioxide <5 L* BUN 43 H Creatinine 1.86 H Glucose 290 H POC Glucose (mg/dL) Calcium Phosphorus Magnesium AST Alkaline Phosphatase Creatine Kinase Troponin I 0.053 H* Total Protein Albumin TSH Urine Appearance Urine Protein Urine Glucose (UA) Urine Ketones Urine Blood Ur Leukocyte Esterase Urine WBC Urine Bacteria Urine Mucus 01/28/24 01/28/24 01/28/24 18:01 19:31 20:13 WBC RBC Hgb Hct MCHC RDW Neutrophils # Lymphocytes # ABG pH ABG pCO2 ABG pO2 ABG HCO3 ABG Total CO2 ABG O2 Saturation VBG pH VBG pCO2 VBG HCO3 Sodium Potassium Chloride Carbon Dioxide BUN Creatinine Glucose POC Glucose (mg/dL) 340 H 266 H 251 H Calcium Phosphorus Magnesium AST Alkaline Phosphatase Creatine Kinase Troponin I Total Protein Albumin TSH Urine Appearance Urine Protein Urine Glucose (UA) Urine Ketones Urine Blood Ur Leukocyte Esterase Urine WBC Urine Bacteria Urine Mucus 01/28/24 01/28/24 01/28/24 20:17 20:25 21:14 WBC RBC Hgb Hct MCHC RDW Neutrophils # Lymphocytes # ABG pH 7.15 L* ABG pCO2 17 L* ABG pO2 165 H ABG HCO3 6 L* ABG Total CO2 6 L ABG O2 Saturation 98.2 H VBG pH VBG pCO2 VBG HCO3 Sodium 134 L Potassium Chloride 116 H Carbon Dioxide <5 L* BUN 44 H Creatinine 1.65 H Glucose 220 H POC Glucose (mg/dL) 218 H Calcium Phosphorus Magnesium AST Alkaline Phosphatase Creatine Kinase Troponin I Total Protein Albumin TSH Urine Appearance Urine Protein Urine Glucose (UA) Urine Ketones Urine Blood Ur Leukocyte Esterase Urine WBC Urine Bacteria Urine Mucus 01/28/24 01/28/24 01/29/24 22:31 23:50 00:01 WBC RBC Hgb Hct MCHC RDW Neutrophils # Lymphocytes # ABG pH ABG pCO2 ABG pO2 ABG HCO3 ABG Total CO2 ABG O2 Saturation VBG pH VBG pCO2 VBG HCO3 Sodium 135 L Potassium 3.1 L Chloride 116 H Carbon Dioxide <5 L* BUN 41 H Creatinine 1.44 H Glucose 201 H POC Glucose (mg/dL) 292 H 224 H Calcium Phosphorus Magnesium AST Alkaline Phosphatase Creatine Kinase Troponin I Total Protein Albumin TSH Urine Appearance Urine Protein Urine Glucose (UA) Urine Ketones Urine Blood Ur Leukocyte Esterase Urine WBC Urine Bacteria Urine Mucus 01/29/24 01/29/24 01/29/24 01:12 03:40 04:00 WBC RBC Hgb Hct MCHC RDW Neutrophils # Lymphocytes # ABG pH ABG pCO2 ABG pO2 ABG HCO3 ABG Total CO2 ABG O2 Saturation VBG pH VBG pCO2 VBG HCO3 Sodium 134 L Potassium 3.0 L Chloride 117 H Carbon Dioxide 7 L* BUN 40 H Creatinine 1.30 H Glucose 49 L* POC Glucose (mg/dL) 158 H 56 L Calcium 7.9 L Phosphorus 1.7 L Magnesium AST 47 H Alkaline Phosphatase Creatine Kinase Troponin I Total Protein 5.0 L Albumin 2.7 L TSH Urine Appearance Urine Protein Urine Glucose (UA) Urine Ketones Urine Blood Ur Leukocyte Esterase Urine WBC Urine Bacteria Urine Mucus 01/29/24 01/29/24 01/29/24 04:13 05:36 06:59 WBC RBC Hgb Hct MCHC RDW Neutrophils # Lymphocytes # ABG pH ABG pCO2 ABG pO2 ABG HCO3 ABG Total CO2 ABG O2 Saturation VBG pH VBG pCO2 VBG HCO3 Sodium Potassium Chloride Carbon Dioxide BUN Creatinine Glucose POC Glucose (mg/dL) 163 H 352 H 296 H Calcium Phosphorus Magnesium AST Alkaline Phosphatase Creatine Kinase Troponin I Total Protein Albumin TSH Urine Appearance Urine Protein Urine Glucose (UA) Urine Ketones Urine Blood Ur Leukocyte Esterase Urine WBC Urine Bacteria Urine Mucus 01/29/24 01/29/24 01/29/24 07:00 07:00 08:00 WBC RBC 3.41 L Hgb 10.3 L D Hct 32.7 L MCHC RDW 16.4 H Neutrophils # 7.9 H Lymphocytes # 0.6 L ABG pH ABG pCO2 ABG pO2 ABG HCO3 ABG Total CO2 ABG O2 Saturation VBG pH VBG pCO2 VBG HCO3 Sodium 130 L Potassium Chloride 112 H Carbon Dioxide 11 L BUN 37 H Creatinine 1.33 H Glucose 268 H POC Glucose (mg/dL) 148 H Calcium Phosphorus 2.1 L Magnesium AST Alkaline Phosphatase Creatine Kinase Troponin I Total Protein Albumin TSH Urine Appearance Urine Protein Urine Glucose (UA) Urine Ketones Urine Blood Ur Leukocyte Esterase Urine WBC Urine Bacteria Urine Mucus 01/29/24 01/29/24 09:12 10:43 WBC RBC Hgb Hct MCHC RDW Neutrophils # Lymphocytes # ABG pH ABG pCO2 ABG pO2 ABG HCO3 ABG Total CO2 ABG O2 Saturation VBG pH VBG pCO2 VBG HCO3 Sodium Potassium Chloride Carbon Dioxide BUN Creatinine Glucose POC Glucose (mg/dL) 168 H 135 H Calcium Phosphorus Magnesium AST Alkaline Phosphatase Creatine Kinase Troponin I Total Protein Albumin TSH Urine Appearance Urine Protein Urine Glucose (UA) Urine Ketones Urine Blood Ur Leukocyte Esterase Urine WBC Urine Bacteria Urine Mucus Assessment and Plan Assessment: Acute diabetic ketoacidosis secondary to poor oral intake and progressive weakness Urinary tract infection Acute kidney injury secondary to above Anion gap metabolic acidosis secondary to above Coronary artery disease with previous stent placement History of lung cancer status post lobectomy Hypertension Hyperlipidemia Diabetes mellitus Chronic kidney disease stage IV Bipolar disorder, resides with her guardian Plan: The patient was seen and evaluated Chest x-ray, labs and medications reviewed Serum bicarb has improved Anion gap is closed Downgrade to the selective care unit Continue with the DKA protocol Continue antibiotics for suspected UTI Currently stable and on room air We will continue to follow and make further recommendations based on her clinical status I have personally seen and examined the patient, performed the documentation and the assessment and plan as written. Number of minutes spent on the visit: 20.
[2024-01-29 13:57] LABS: Glucose,Whole Blood 206 mg/dL (70-110)
[2024-01-29] MEDS ORDERED: LEVOFLOXACIN 750MG-D5W PMX 750 MG in DEXTROSE/WATER 1 150ML.BAG IVPB SCH (14:00)
--- NOTE | 2024-01-29 14:17 | P.PN ---
Progress Note - Text Progress Note Date: 01/29/24 Chief Complaint: Weakness This is a 73-year-old patient, follows with visiting physicians Dr. Waller. At her baseline patient does use a cane sometimes a walker. Legal guardian is Marianela Syed Patient presents with weakness. Decreased appetite. Last bowel movement was a bout a week ago. Normally has a bowel movement average about every 4 days. Denies any fever and chills. Has a dry cough for last 3 days. Weak and tired January 28: Admitted with DKA. Pneumonia. Feeling better today. Some dry cough. Eating fair. On insulin drip. Bicarb 11. Remains on insulin drip. Active Medications Acetaminophen (Acetaminophen Tab 325 Mg Tab) 650 mg PO Q6HR [facility] Last Admin: 01/29/24 12:13 Dose: Not Given Allopurinol (Allopurinol 100 Mg Tab) 100 mg PO DAILY [facility] Last Admin: 01/29/24 09:51 Dose: 100 mg Amlodipine Besylate (Amlodipine 5 Mg Tab) 5 mg PO DAILY [facility] Last Admin: 01/29/24 09:50 Dose: 5 mg Aripiprazole (Aripiprazole 10 Mg Tab) 10 mg PO DAILY [facility] Last Admin: 01/29/24 09:51 Dose: 10 mg Atorvastatin Calcium (Atorvastatin 40 Mg Tab) 40 mg PO HS [facility] Last Admin: 01/28/24 23:03 Dose: 40 mg Dextrose/Water (Dextrose 50% Syringe 50 Ml) 25 ml IVP PER PROTOCOL PRN; Protocol PRN Reason: Hypoglycemia Dextrose/Water (Dextrose 50% Syringe 50 Ml) 50 ml IVP PER PROTOCOL PRN; Protocol PRN Reason: Hypoglycemia Last Admin: 01/29/24 03:53 Dose: 50 ml Duloxetine HCl (Duloxetine Hcl 60 Mg Capsule.Dr) 60 mg PO BID [facility] Last Admin: 01/29/24 09:50 Dose: 60 mg Famotidine (Famotidine 20 Mg Tab) 20 mg PO HS [facility] Last Admin: 01/28/24 23:03 Dose: 20 mg Insulin Human Regular 100 unit (/ Sodium Chloride) 101 mls @ 10.949 mls/hr IV .Q9H14M [facility]; Protocol Last Titration: 01/29/24 12:14 Dose: 0.006 units/kg/hr, 0.657 mls/hr Potassium Chloride/Dextrose/Sod Cl (D5%-1/2ns-Kcl 20 Meq/L Iv Solution) 1,000 mls @ 150 mls/hr IV .Q6H40M [facility] Last Admin: 01/29/24 09:47 Dose: 150 mls/hr Ceftriaxone Sodium 1 gm/ (Sodium Chloride) 50 mls @ 100 mls/hr IVPB Q24H [facility]; Protocol Last Admin: 01/28/24 23:54 Dose: 100 mls/hr Insulin Aspart (Insulin Aspart (Novolog) 100 Unit/Ml Vial) 0 unit SQ AC-TID [facility]; Protocol Last Admin: 01/29/24 13:43 Dose: Not Given Losartan Potassium (Losartan 25 Mg Tab) 25 mg PO DAILY [facility] Last Admin: 01/29/24 09:51 Dose: 25 mg Metoprolol Tartrate (Metoprolol Tartrate 25 Mg Tab) 25 mg PO BID [facility] Last Admin: 01/29/24 09:50 Dose: 25 mg Miscellaneous Information (Potassium Replacement Protocol 1 Each Misc) 1 each MISCELLANE DAILY PRN; Protocol PRN Reason: Per Protocol Naloxone HCl (Naloxone 0.4 Mg/Ml 1 Ml Vial) 0.2 mg IV Q2M PRN PRN Reason: Opioid Reversal Non-Formulary Medication (Mirabegron [Myrbetriq]) 25 mg PO DAILY [facility] Last Admin: 01/29/24 09:52 Dose: Not Given Ondansetron HCl (Ondansetron 4 Mg/2 Ml Vial) 4 mg IVP Q6HR PRN PRN Reason: Nausea And Vomiting Last Admin: 01/28/24 15:23 Dose: 4 mg Oxybutynin Chloride (Oxybutynin 15 Mg Tab.Er.24) 15 mg PO DAILY [facility] Last Admin: 01/29/24 09:51 Dose: 15 mg Pantoprazole Sodium (Pantoprazole 40 Mg Tablet) 40 mg PO AC-BRKFST [facility] Last Admin: 01/29/24 09:51 Dose: 40 mg Trazodone HCl (Trazodone Hcl 50 Mg Tab) 150 mg PO HS [facility] Last Admin: 01/28/24 23:06 Dose: 150 mg Past medical history to include: Depression, hyperlipidemia, urinary stress incontinence, diabetes mellitus type 2, CAD, COPD, DVT, GERD, hyperlipidemia, mentally incapacitated, chronic kidney disease stage IV, right lobectomy for lung cancer, abdominal wall hernia, Social history: Legal guardian Marianela Syed. Past history of alcohol dependence. Has 2 roommates. Has a caregiver. Uses a walker/cane Physical examination: VITAL SIGNS: Afebrile, 103, 14, 129 x 71, 97% room air GENERAL: reclining in bed, awake EYES: Pupils equal. Conjunctiva normal. HEENT: External appearance of nose and ears normal, oral cavity dry mucous membranes. NECK: JVD possibly raised; masses not palpable. HEART: First and second heart sounds are normal; edema decreased LUNGS: Respiratory rate increased; decreased breath sounds. ABDOMEN: Soft, non-abdominal tenderness, no guarding rigidity abdominal wall hernia nontender, liver spleen not palpable, no masses palpable. PSYCH: Answering simple questions appropriately MUSCULOSKELETAL:No Clubbing/cyanosis;muscles-grossly intact. OA NEUROLOGICAL: Cranial nerves grossly intact; no facial asymmetry, moving all 4 limbs INVESTIGATIONS, reviewed in the clinical context: January 28: White count 9 hemoglobin 10.3 platelets 184 sodium 130 potassium 3.9 BUN 37 creatinine 1.33 bicarb 11 ABG: pH 7.03 pCO2 18 bicarbonate 5 sodium 133 potassium 4.3 bicarb less than 5 BUN 43 creatinine 1.86 blood glucose 290 Troponin I 0.053 TSH 0.363 EKG tracing personally reviewed by me-sinus tachycardia. Nonspecific ST-T wave changes. Chest x-ray film personally reviewed by me-questionable infiltrate CT brain: Age-related chronic changes Assessment and plan: -Probable pneumonia. suspect gram-negative organism IV ceftriaxone -Diabetic ketoacidosis: Slow to respond Continue insulin drip. Bicarbonate 11 -Chronic congestive heart failure exacerbation from diastolic dysfunction. EF 55-60%.: Euvolemic -Gallstones, asymptomatic -Hypervolemic, hyponatremia,: -Morbid obesity BMI 51.7 Weight loss measures -Suspect chronic kidney disease stage III from diabetic nephropathy and nephrosclerosis Follow renal function closely -Diabetes mellitus type 2 on insulin, uncontrolled with hyperglycemia -Depression and anxiety Abilify 10 mg a day. Cymbalta 60 mg twice a day. -Essential hypertension, Norvasc Lopressor 25 mg twice a day. Hold Cozaar -Hyperuricemia Allopurinol 100 mg a day -GERD Protonix 20 mg daily -Chronic urinary stress incontinence Oxybutynin 15 mg a day, Myrbetriq 25 mg a day -Chronic arthritis with pain [place] 10 1 tablet every 6 when necessary -Chronic hard of hearing -Chronic medical debility. At her baseline uses a walker -Legal guardian: Marianela Syed Keep on insulin drip. Transition to long-acting insulin this evening. Other medications to continue. Past Medical History Past Medical History: Asthma, Coronary Artery Disease (CAD), Cancer, Chest Pain / Angina, COPD, Diabetes Mellitus, Deep Vein Thrombosis (DVT), GERD/Reflux, Hyperlipidemia, Hypertension, Myocardial Infarction ([place]), Osteoarthritis (OA) Additional Past Medical History / Comment(s): mentally incapacitated per guardian, morbid obesity, Chronic kidney disease stage IV, chronic bronchitis, lobectomy for lung cancer, abdominal wall hernia R side, generalized weakness, gait dysfunction, falls, DJD T12 and L1, urine incontinence at times. The patient lives w/her guardian Marianela Syed who is new to this role so wasn't able to confirm health hx., gets bubble pack of meds set up by Visiting Physician- takes own meds per guardian Last Myocardial Infarction Date:: 01/20/09 History of Any Multi-Drug Resistant Organisms: VRE Date of last positivie culture/infection: 11/13/17 MDRO Source:: VRE URINE Past Surgical History: Section, Heart Catheterization, Heart Catheterization With Stent, Orthopedic Surgery Additional Past Surgical History / Comment(s): Lung lobectomy, ORIF RIGHT ULNA/RADIUS, left rotator cuff repair, cataract removals, heel surgery r/t infection (laterality unknown), colonoscopies/ benign polypectomy, PCI/ stent x2, guardian unable to confirm Past Anesthesia/Blood Transfusion Reactions: No Reported Reaction Date of Last Stent Placement:: 11/2016 Past Psychological History: Anxiety, Bipolar, Depression Smoking Status: Never smoker Past Alcohol Use History: None Reported Past Drug Use History: None Reported
[2024-01-29 15:07] LABS: African American GFR (CKD) 36 (>60 ml/min/1.73 sqM); Anion Gap 6 mmol/L; Blood Urea Nitrogen 38 mg/dL (7-17); Carbon Dioxide 10 mmol/L (22-30); Chloride 113 mmol/L (98-107); Glucose 238 mg/dL (74-99); Non-African American GFR(CKD) 31 (>60 ml/min/1.73 sqM); Potassium 4.2 mmol/L (3.5-5.1); Sodium 129 mmol/L (137-145)
[2024-01-29 16:07] LABS: Glucose,Whole Blood 277 mg/dL (70-110)
[2024-01-29 17:09] LABS: Glucose,Whole Blood 264 mg/dL (70-110)
[2024-01-29 18:03] LABS: Glucose,Whole Blood 252 mg/dL (70-110)
[2024-01-29 19:18] LABS: African American GFR (CKD) 34 (>60 ml/min/1.73 sqM); Anion Gap 9 mmol/L; Blood Urea Nitrogen 38 mg/dL (7-17); Calcium 8.3 mg/dL (8.4-10.2); Chloride 113 mmol/L (98-107); Glucose 120 mg/dL (74-99); Non-African American GFR(CKD) 29 (>60 ml/min/1.73 sqM); Potassium 3.9 mmol/L (3.5-5.1); Sodium 130 mmol/L (137-145)
[2024-01-29 19:19] LABS: Glucose,Whole Blood 120 mg/dL (70-110)
[2024-01-29 19:37] LABS: Carbon Dioxide 8 mmol/L (22-30)
[2024-01-29 20:05] LABS: Glucose,Whole Blood 138 mg/dL (70-110)
[2024-01-29 20:57] LABS: Glucose,Whole Blood 181 mg/dL (70-110)
[2024-01-29] MEDS: INSULIN DETEMIR (LEVEMIR) 100 UNIT/ML SYR SQ SCH (20:57)
[2024-01-29] MEDS: SODIUM BICARBONATE TAB 650 MG TAB PO SCH (20:58)
[2024-01-29 22:09] LABS: Glucose,Whole Blood 212 mg/dL (70-110)
[2024-01-30 02:05] LABS: Glucose,Whole Blood 231 mg/dL (70-110)
[2024-01-30 05:54] LABS: Glucose,Whole Blood 224 mg/dL (70-110)
[2024-01-30 07:33] LABS: African American GFR (CKD) 38 (>60 ml/min/1.73 sqM); Anion Gap 7 mmol/L; Blood Urea Nitrogen 39 mg/dL (7-17); Calcium 8.1 mg/dL (8.4-10.2); Carbon Dioxide 11 mmol/L (22-30); Chloride 112 mmol/L (98-107); Glucose 199 mg/dL (74-99); Non-African American GFR(CKD) 33 (>60 ml/min/1.73 sqM); Sodium 130 mmol/L (137-145)
[2024-01-30 10:20] LABS: ABG Base Excess -12.8 mmol/L; ABG HCO3 14 mmol/L (21-25); ABG Oxygen Saturation 98.6 % (94-97); ABG PCO2 33 mmHg (35-45); ABG PH 7.23 (7.35-7.45); ABG PO2 109 mmHg (83-108); ABG TCO2 15 mmol/L (19-24); Allen Test Performed? Yes
[2024-01-30] MEDS: SODIUM BICARB 8.4% 50 ML SYR (1 MEQ/ML) IV STA (10:55)
[2024-01-30 11:31] LABS: Glucose,Whole Blood 159 mg/dL (70-110)
--- NOTE | 2024-01-30 12:24 | P.PN ---
Subjective Progress Note Date: 01/30/24 Principal diagnosis: Acute diabetic ketoacidosis, UTI, This is a pleasant 73-year-old female patient with a history of coronary artery disease lung cancer with previous lobectomy, chronic kidney disease stage IV, diabetes mellitus, hypertension, hyperlipidemia. Still has bipolar disorder and has a guardian with whom she resides. To the emergency room yesterday with a 3- day history of progressive weakness and inability to get up out of bed. She did have some shortness of breath with a mild nonproductive cough.'s not mild nausea. No acute cardiopulmonary process. CT scan of the brain revealed age- related atrophic and chronic small vessel ischemic change without acute i ntracranial process. She was initially found to be in diabetic ketoacidosis with a bicarb of less than 5 and acetone positive. Urinalysis was cloudy with positive ketones moderate blood and many bacteria. Viral screen was negative. She is seen today in consultation in the emergency department. She is currently resting on a stretcher. Awake and alert in no acute distress. She is a poor historian. She is maintaining good O2 saturations in the upper 90s on room air. She has been afebrile. Hemodynamically stable. Most recent lab results reveal white count 9.0. Hemoglobin 10.3. Platelets 184. Sodium 130. Potassium 3.9. Bicarb 11. Anion gap 7. BUN 37. Creatinine 1.33. Glucose 268. She is currently on an insulin drip at 0.012 units/kg/h. She is on D5 and half-normal saline with 20 KCl at 150 MLS per hour. Antibiotics in the form of ceftriaxone. Patient was read today on 01/30/2024, patient is now on the medical floor, being followed by Dr. Jackson. We have seen this patient initially for potential admission to the ICU, however her anion gap has closed, and I recommended admitting the patient to the medical floor. Patient is sleepy, she is noted to have clear-cut symptoms of obstructive sleep apnea, seems to be apneic intermittently, and she has loud snoring. Hence I recommended BiPAP for this patient. ABG today showed a pO2 of 109 pCO2 33 pH of 7.23, hence patient is still on bicarb drip, and she was given 1 amp of bicarb. Antibiotics baca, patient remains on Rocephin, she had some positive blood cultures for Staph epidermidis/Staph hominis, felt to be more likely a skin contaminant. Renal functioning is better today, creatinine is down to 1.56 from 1.71 yesterday. Patient does have history of chronic kidney disease. Urine cultures are positive for gram-negative bacilli, patient is on Rocephin, final culture is pending Objective - Vital Signs Vital signs: Vital Signs Temp 97.3 F L 01/30/24 08:20 Pulse 103 H 01/30/24 08:20 Resp 18 01/30/24 08:20 BP 120/52 01/30/24 08:20 Pulse Ox 99 01/30/24 08:20 FiO2 30 01/30/24 11:55 Intake & Output 01/29/24 01/30/24 01/30/24 18:59 06:59 18:59 Intake Total 26.931 247.314 Output Total 600 Balance 26.931 -352.686 Weight 108.409 kg Intake: Intake, IV Titration 26.931 7.314 Amount Insulin Regular 100 unit 26.931 7.314 In Sodium Chloride 0.9% 100 ml @ 0.1 UNITS/KG/HR 10.949 mls/hr IV .Q9H14M [facility] Rx#:[id number] Oral 240 Output: Urine 600 Other: Voiding Method Indwelling Catheter Indwelling Catheter - Exam GENERAL EXAM: Patient was noted to be sleepy, snoring, she has intermittent episodes of apnea hence I recommended BiPAP for this patient. HEAD: Normocephalic. EYES: Normal reaction of pupils, equal size. NOSE: Clear with pink turbinates. THROAT: No erythema or exudates. NECK: No masses, no JVD. CHEST: No chest wall deformity. LUNGS: Diminished breath sound bilaterally no rhonchi no wheezes CVS: S1 and S2 normal with no audible murmur, regular rhythm. ABDOMEN: No hepatosplenomegaly, normal bowel sounds, no guarding or rigidity. SKIN: No rashes CENTRAL NERVOUS SYSTEM: Patient is lethargic, however she is arousable, EXTREMITIES: There is no peripheral edema. No clubbing, no cyanosis. Peripheral pulses are intact. - Labs CBC & Chem 7: 01/29/24 07:00 01/30/24 06:19 Labs: Abnormal Lab Results - Last 24 Hours (Table) 06/01/29/24 01/29/24 Range/Units 13:56 14:37 16:05 ABG pH (7.35-7.45) ABG pCO2 (35-45) mmHg ABG pO2 (83-108) mmHg ABG HCO3 (21-25) mmol/L ABG Total CO2 (19-24) mmol/L ABG O2 Saturation (94-97) % Sodium 129 L (137-145) mmol/L Chloride 113 H (98-107) mmol/L Carbon Dioxide 10 L (22-30) mmol/L BUN 38 H (7-17) mg/dL Creatinine 1.62 H (0.52-1.04) mg/dL Glucose 238 H (74-99) mg/dL POC Glucose (mg/dL) 206 H 277 H (70-110) mg/dL Calcium 8.0 L (8.4-10.2) mg/dL 01/29/24 01/29/24 01/29/24 Range/Units 17:08 18:02 18:43 ABG pH (7.35-7.45) ABG pCO2 (35-45) mmHg ABG pO2 (83-108) mmHg ABG HCO3 (21-25) mmol/L ABG Total CO2 (19-24) mmol/L ABG O2 Saturation (94-97) % Sodium 130 L (137-145) mmol/L Chloride 113 H (98-107) mmol/L Carbon Dioxide 8 L* (22-30) mmol/L BUN 38 H (7-17) mg/dL Creatinine 1.71 H (0.52-1.04) mg/dL Glucose 120 H (74-99) mg/dL POC Glucose (mg/dL) 264 H 252 H (70-110) mg/dL Calcium 8.3 L (8.4-10.2) mg/dL 01/29/24 01/29/24 01/29/24 Range/Units 19:08 19:58 20:55 ABG pH (7.35-7.45) ABG pCO2 (35-45) mmHg ABG pO2 (83-108) mmHg ABG HCO3 (21-25) mmol/L ABG Total CO2 (19-24) mmol/L ABG O2 Saturation (94-97) % Sodium (137-145) mmol/L Chloride (98-107) mmol/L Carbon Dioxide (22-30) mmol/L BUN (7-17) mg/dL Creatinine (0.52-1.04) mg/dL Glucose (74-99) mg/dL POC Glucose (mg/dL) 120 H 138 H 181 H (70-110) mg/dL Calcium (8.4-10.2) mg/dL 01/29/24 01/30/24 01/30/24 Range/Units 22:08 02:03 05:51 ABG pH (7.35-7.45) ABG pCO2 (35-45) mmHg ABG pO2 (83-108) mmHg ABG HCO3 (21-25) mmol/L ABG Total CO2 (19-24) mmol/L ABG O2 Saturation (94-97) % Sodium (137-145) mmol/L Chloride (98-107) mmol/L Carbon Dioxide (22-30) mmol/L BUN (7-17) mg/dL Creatinine (0.52-1.04) mg/dL Glucose (74-99) mg/dL POC Glucose (mg/dL) 212 H 231 H 224 H (70-110) mg/dL Calcium (8.4-10.2) mg/dL 01/30/24 01/30/24 01/30/24 Range/Units 06:19 10:14 11:29 ABG pH 7.23 L (7.35-7.45) ABG pCO2 33 L (35-45) mmHg ABG pO2 109 H (83-108) mmHg ABG HCO3 14 L (21-25) mmol/L ABG Total CO2 15 L (19-24) mmol/L ABG O2 Saturation 98.6 H (94-97) % Sodium 130 L (137-145) mmol/L Chloride 112 H (98-107) mmol/L Carbon Dioxide 11 L (22-30) mmol/L BUN 39 H (7-17) mg/dL Creatinine 1.56 H (0.52-1.04) mg/dL Glucose 199 H (74-99) mg/dL POC Glucose (mg/dL) 159 H (70-110) mg/dL Calcium 8.1 L (8.4-10.2) mg/dL Microbiology - Last 24 Hours (Table) 01/28/24 13:40 Blood Culture Gram Stain - Final Blood Blood Culture - Final Staphylococcus hominis Staphylococcus epidermidis 01/28/24 13:15 Blood Culture Gram Stain - Final Blood Blood Culture - Final Staphylococcus hominis Staphylococcus epidermidis Molecular ID 01/28/24 12:31 Urine Culture - Preliminary Urine,Clean Catch Gram Neg Bacilli Assessment and Plan Assessment: Impression Acute diabetic ketoacidosis secondary to poor oral intake and progressive weakness Urinary tract infection, secondary to gram-negative bacilli, on ceftriaxone Suspected sepsis secondary to UTI Acute on chronic kidney injury ease Severe metabolic acidosis, multifactorial Suspect obstructive sleep apnea syndrome Coronary artery disease with previous stent placement History of lung cancer status post lobectomy Hypertension Hyperlipidemia Diabetes mellitus Chronic kidney disease stage IV Bipolar disorder, resides with her guardian Recommendation: Continue present treatment plan Continue present supportive care measures Continue bicarb drip ContinueBasic metabolic profile today is normal renal profile is normal Levemir insulin and subcu insulin as per protocol BiPAP for obstructive sleep apnea syndrome Continue ceftriaxone for UTI/sepsis Consider repeating blood cultures, I believe the cultures are likely contam inated by skin Staph hominis/Staph epidermidis Will continue to follow Time with Patient: Less than 30
[2024-01-30] MEDS: NYSTATIN 100,000 UNIT/GM POWD 15 GM TOPICAL SCH (15:11)
[2024-01-30 16:41] LABS: Glucose,Whole Blood 188 mg/dL (70-110)
--- NOTE | 2024-01-30 17:46 | P.PN ---
Progress Note - Text Progress Note Date: 01/30/24 Chief Complaint: Weakness This is a 73-year-old patient, follows with visiting physicians Dr. Waller. At her baseline patient does use a cane sometimes a walker. Legal guardian is Marianela Syed Patient presents with weakness. Decreased appetite. Last bowel movement was a bout a week ago. Normally has a bowel movement average about every 4 days. Denies any fever and chills. Has a dry cough for last 3 days. Weak and tired January 28: Admitted with DKA. Pneumonia. Feeling better today. Some dry cough. Eating fair. On insulin drip. Bicarb 11. Remains on insulin drip. January 29: Yesterday patient evening became hypotensive. Bicarbonate was low. Was put on a bicarbonate drip. Switched over to insulin last night. Has been rather sleepy since last night. Until this afternoon.Placed on BiPAP. GH did not show bicarb retention. Will stop Cymbalta for now. Active Medications Acetaminophen (Acetaminophen Tab 325 Mg Tab) 650 mg PO Q6HR [facility] Last Admin: 01/30/24 17:01 Dose: Not Given Allopurinol (Allopurinol 100 Mg Tab) 100 mg PO DAILY [facility] Last Admin: 01/30/24 12:37 Dose: Not Given Amlodipine Besylate (Amlodipine 5 Mg Tab) 5 mg PO DAILY [facility] Last Admin: 01/30/24 12:38 Dose: Not Given Aripiprazole (Aripiprazole 10 Mg Tab) 10 mg PO DAILY [facility] Last Admin: 01/30/24 12:38 Dose: Not Given Atorvastatin Calcium (Atorvastatin 40 Mg Tab) 40 mg PO [facility] Last Admin: 01/29/24 20:58 Dose: 40 mg Dextrose/Water (Dextrose 50% Syringe 50 Ml) 25 ml IVP PER PROTOCOL PRN; Protocol PRN Reason: Hypoglycemia Dextrose/Water (Dextrose 50% Syringe 50 Ml) 50 ml IVP PER PROTOCOL PRN; Protocol PRN Reason: Hypoglycemia Last Admin: 01/29/24 03:53 Dose: 50 ml Famotidine (Famotidine 20 Mg Tab) 20 mg PO HS [facility] Last Admin: 01/29/24 20:58 Dose: 20 mg Ceftriaxone Sodium 1 gm/ (Sodium Chloride) 50 mls @ 100 mls/hr IVPB Q24H [facility]; Protocol Last Admin: 01/29/24 20:59 Dose: 100 mls/hr Sodium Bicarbonate 150 ml/ (Dextrose/Water) 1,150 mls @ 50 mls/hr IV .Q23H [facility] Last Admin: 01/29/24 21:43 Dose: 50 mls/hr Insulin Aspart (Insulin Aspart (Novolog) 100 Unit/Ml Vial) 0 unit SQ AC-TID [facility]; Protocol Last Admin: 01/30/24 16:55 Dose: 2 unit Insulin Detemir (Insulin Detemir (Levemir) 100 Unit/Ml Syr) 30 unit SQ [facility] Last Admin: 01/29/24 20:57 Dose: 30 unit Metoprolol Tartrate (Metoprolol Tartrate 25 Mg Tab) 25 mg PO BID [facility] Last Admin: 01/30/24 12:38 Dose: Not Given Miscellaneous Information (Potassium Replacement Protocol 1 Each Misc) 1 each MISCELLANE DAILY PRN; Protocol PRN Reason: Per Protocol Naloxone HCl (Naloxone 0.4 Mg/Ml 1 Ml Vial) 0.2 mg IV Q2M PRN PRN Reason: Opioid Reversal Non-Formulary Medication (Mirabegron [Myrbetriq]) 25 mg PO DAILY [facility] Last Admin: 01/30/24 11:00 Dose: Not Given Nystatin (Nystatin 100,000 Unit/Gm Powd 15 Gm) 1 applic TOPICAL BID [facility]; Protocol Last Admin: 01/30/24 15:11 Dose: 1 applic Ondansetron HCl (Ondansetron 4 Mg/2 Ml Vial) 4 mg IVP Q6HR PRN PRN Reason: Nausea And Vomiting Last Admin: 01/28/24 15:23 Dose: 4 mg Oxybutynin Chloride (Oxybutynin 15 Mg Tab.Er.24) 15 mg PO DAILY [facility] Last Admin: 01/30/24 12:38 Dose: Not Given Pantoprazole Sodium (Pantoprazole 40 Mg Tablet) 40 mg PO AC-BRKFST [facility] Last Admin: 01/30/24 12:37 Dose: Not Given Trazodone HCl (Trazodone Hcl 50 Mg Tab) 150 mg PO [facility] Last Admin: 01/29/24 20:57 Dose: 150 mg Past medical history to include: Depression, hyperlipidemia, urinary stress incontinence, diabetes mellitus type 2, CAD, COPD, DVT, GERD, hyperlipidemia, mentally incapacitated, chronic kidney disease stage IV, right lobectomy for lung cancer, abdominal wall hernia, Social history: Legal guardian Marianela Syed. Past history of alcohol dependence. Has 2 roommates. Has a caregiver. Uses a walker/cane Physical examination: VITAL SIGNS: 98.2, 95, 17, 133 x 72, 98% on BiPAP 12/10/30% GENERAL: Lethargic EYES: Pupils equal. Conjunctiva normal. HEENT: External appearance of nose and ears normal, oral cavity dry mucous membranes. NECK: JVD possibly raised; masses not palpable. HEART: First and second heart sounds are normal; edema decreased LUNGS: Respiratory rate increased; decreased breath sounds. ABDOMEN: Soft, non-abdominal tenderness, no guarding rigidity abdominal wall hernia nontender, liver spleen not palpable, no masses palpable. PSYCH: Lethargic MUSCULOSKELETAL:No Clubbing/cyanosis;muscles-grossly intact. OA NEUROLOGICAL: Cranial nerves grossly intact; no facial asymmetry, INVESTIGATIONS, reviewed in the clinical context: January 29: ABG: pH 7.23 pCO2 33 pO2 109 sodium 130 potassium 4 bicarb 11 BUN 39 creatinine 1.56 procalcitonin 22.7 January 28: White count 9 hemoglobin 10.3 platelets 184 sodium 130 potassium 3.9 BUN 37 creatinine 1.33 bicarb 11 ABG: pH 7.03 pCO2 18 bicarbonate 5 sodium 133 potassium 4.3 bicarb less than 5 BUN 43 creatinine 1.86 blood glucose 290 Troponin I 0.053 TSH 0.363 EKG tracing personally reviewed by me-sinus tachycardia. Nonspecific ST-T wave changes. Chest x-ray film personally reviewed by me-questionable infiltrate CT brain: Age-related chronic changes Assessment and plan: -Probable pneumonia. suspect gram-negative organism IV ceftriaxone -Acute metabolic encephalopathy could be from pneumonia, acidosis: New diagnosis -Diabetic ketoacidosis: Responded Patient off insulin drip. Started on Levemir last night -Chronic congestive heart failure exacerbation from diastolic dysfunction. EF 55-60%.: Euvolemic -Gallstones, asymptomatic -Hypervolemic, hyponatremia,: -Morbid obesity BMI 51.7 Weight loss measures -Suspect chronic kidney disease stage III from diabetic nephropathy and nephrosclerosis Follow renal function closely -Metabolic acidosis: Uncontrolled IV bicarbonate drip -Diabetes mellitus type 2 on insulin, uncontrolled with hyperglycemia -Depression and anxiety Abilify 10 mg a day. Cymbalta-hold -Essential hypertension, Norvasc Lopressor 25 mg twice a day. Hold Cozaar -Hyperuricemia Allopurinol 100 mg a day -GERD Protonix 20 mg daily -Chronic urinary stress incontinence Oxybutynin 15 mg a day, Myrbetriq 25 mg a day -Chronic arthritis with pain [place] 10 1 tablet every 6 when necessary -Chronic hard of hearing -Chronic medical debility. At her baseline uses a walker -Legal guardian: Marianela Syed On BiPAP. Hold Cymbalta. IV bicarbonate drip Past Medical History Past Medical History: Asthma, Coronary Artery Disease (CAD), Cancer, Chest Pain / Angina, COPD, Diabetes Mellitus, Deep Vein Thrombosis (DVT), GERD/Reflux, Hyperlipidemia, Hypertension, Myocardial Infarction (NC), Osteoarthritis (OA) Additional Past Medical History / Comment(s): mentally incapacitated per guardian, morbid obesity, Chronic kidney disease stage IV, chronic bronchitis, lobectomy for lung cancer, abdominal wall hernia R side, generalized weakness, gait dysfunction, falls, DJD T12 and L1, urine incontinence at times. The patient lives w/her guardian Marianela Syed who is new to this role so wasn't able to confirm health hx., gets bubble pack of meds set up by Visiting Physician- takes own meds per guardian Last Myocardial Infarction Date:: 01/20/09 History of Any Multi-Drug Resistant Organisms: VRE Date of last positivie culture/infection: 11/13/17 MDRO Source:: VRE URINE Past Surgical History: Section, Heart Catheterization, Heart Catheterization With Stent, Orthopedic Surgery Additional Past Surgical History / Comment(s): Lung lobectomy, ORIF RIGHT ULNA/RADIUS, left rotator cuff repair, cataract removals, heel surgery r/t infection (laterality unknown), colonoscopies/ benign polypectomy, PCI/ stent x2, guardian unable to confirm Past Anesthesia/Blood Transfusion Reactions: No Reported Reaction Date of Last Stent Placement:: 11/2016 Past Psychological History: Anxiety, Bipolar, Depression Smoking Status: Never smoker Past Alcohol Use History: None Reported Past Drug Use History: None Reported
[2024-01-30 20:10] LABS: Glucose,Whole Blood 179 mg/dL (70-110)
[2024-01-31 05:11] LABS: ABG Base Excess -7.4 mmol/L; ABG HCO3 20 mmol/L (21-25); ABG Oxygen Saturation 97.3 % (94-97); ABG PCO2 50 mmHg (35-45); ABG PH 7.22 (7.35-7.45); ABG PO2 111 mmHg (83-108); ABG TCO2 22 mmol/L (19-24); Allen Test Performed? Yes
[2024-01-31 05:33] LABS: Glucose,Whole Blood 248 mg/dL (70-110)
[2024-01-31 10:18] LABS: African American GFR (CKD) 45 (>60 ml/min/1.73 sqM); Anion Gap 9 mmol/L; Blood Urea Nitrogen 33 mg/dL (7-17); Calcium 8.2 mg/dL (8.4-10.2); Carbon Dioxide 17 mmol/L (22-30); Chloride 107 mmol/L (98-107); Glucose 259 mg/dL (74-99); Non-African American GFR(CKD) 39 (>60 ml/min/1.73 sqM); Potassium 3.7 mmol/L (3.5-5.1); Sodium 133 mmol/L (137-145)
[2024-01-31 11:17] LABS: Glucose,Whole Blood 292 mg/dL (70-110)
--- NOTE | 2024-01-31 15:08 | P.PN ---
Subjective Progress Note Date: 01/31/24 Principal diagnosis: Urinary tract infection/sepsis. Acute diabetic ketoacidosis, UTI, This is a pleasant 73-year-old female patient with a history of coronary artery disease lung cancer with previous lobectomy, chronic kidney disease stage IV, diabetes mellitus, hypertension, hyperlipidemia. Still has bipolar disorder and has a guardian with whom she resides. To the emergency room yesterday with a 3- day history of progressive weakness and inability to get up out of bed. She did have some shortness of breath with a mild nonproductive cough.'s not mild nausea. No acute cardiopulmonary process. CT scan of the brain revealed age- related atrophic and chronic small vessel ischemic change without acute intracranial process. She was initially found to be in diabetic ketoacidosis with a bicarb of less than 5 and acetone positive. Urinalysis was cloudy with positive ketones moderate blood and many bacteria. Viral screen was negative. She is seen today in consultation in the emergency department. She is currently resting on a stretcher. Awake and alert in no acute distress. She is a poor historian. She is maintaining good O2 saturations in the upper 90s on room air. She has been afebrile. Hemodynamically stable. Most recent lab results reveal white count 9.0. Hemoglobin 10.3. Platelets 184. Sodium 130. Potassium 3.9. Bicarb 11. Anion gap 7. BUN 37. Creatinine 1.33. Glucose 268. She is currently on an insulin drip at 0.012 units/kg/h. She is on D5 and half-normal saline with 20 KCl at 150 MLS per hour. Antibiotics in the form of ceftriaxone. Patient was read today on 01/30/2024, patient is now on the medical floor, being followed by Dr. Jackson. We have seen this patient initially for potential admission to the ICU, however her anion gap has closed, and I recommended admitting the patient to the medical floor. Patient is sleepy, she is noted to have clear-cut symptoms of obstructive sleep apnea, seems to be apneic intermittently, and she has loud snoring. Hence I recommended BiPAP for this patient. ABG today showed a pO2 of 109 pCO2 33 pH of 7.23, hence patient is still on bicarb drip, and she was given 1 amp of bicarb. Antibiotics baca, patient remains on Rocephin, she had some positive blood cultures for Staph epidermidis/Staph hominis, felt to be more likely a skin contaminant. Renal functioning is better today, creatinine is down to 1.56 from 1.71 yesterday. Patient does have history of chronic kidney disease. Urine cultures are positive for gram-negative bacilli, patient is on Rocephin, final culture is mark barclay Progress note dated January 31, 2024. The patient is seen today room 369. She was initially seen and admitted for diagnosis of diabetic ketoacidosis. Earlier today, she was on BiPAP, with setti ngs of 16/5, and 30%. Blood gases showed a pO2 of 111, pCO2 of 50, and pH is 7.22. The patient is currently on 3 L of oxygen by nasal cannula. She is awake and alert. She is getting a sodium bicarbonate drip, with 3 ampoules of sodium bicarb in D5W, at 50 cc an hour. Current labs include a sodium 133, potassium 3.7, chlorides 107, CO2 17, anion gap 9, BUN 33, creatinine 1.34. Glucose is 292. Calcium is 8.2. Blood cultures, were positive for Staphylococcus hominis and Staphylococcus epidermidis. Urine culture was positive for E. coli. The patient is currently on Rocephin. Objective - Vital Signs Vital signs: Vital Signs Temp 98.0 F 01/31/24 11:40 Pulse 81 01/31/24 11:40 Resp 20 01/31/24 11:40 BP 88/62 01/31/24 11:40 Pulse Ox 99 01/31/24 11:40 FiO2 30 01/31/24 04:44 Intake & Output 01/30/24 01/31/24 01/31/24 18:59 06:59 18:59 Intake Total 400 500 Output Total 525 575 300 Balance -125 -575 200 Weight 246.5 kg Intake: IV 20 Invasive Line 2 10 Invasive Line 3 10 Intake, IV Titration 400 Amount Dextrose 5% in Water 1, 400 000 ml @ 50 mls/hr IV . Q23H [facility] with Sodium Bicarb (1 Meq/ml) 150 ml Rx#:[id number] Oral 480 Output: Urine 525 575 300 Other: Voiding Method Indwelling Catheter Indwelling Catheter Indwelling Catheter - Exam No acute distress, oriented 3. Awake and alert. Currently on 3 L of oxygen by nasal cannula. HEENT examination is grossly unremarkable. Mucous membranes are moist. No oral lesions. Neck supple. Full range of motion. No adenopathy thyromegaly or neck vein distention. Cardiovascular examination reveals regular rhythm rate. S1-S2 normal. No S3 or S4. No discernible murmur noted. Sounds are distant. Heart rate 81 bpm. Lungs reveal mostly clear breath sounds. Scattered rhonchi are noted. No wheezes or crackles. Breath sounds equal bilaterally. 3 L saturation is 99%. Abdomen soft bowel sounds are heard. No masses or tenderness. Extremities are intact. No cyanosis clubbing or edema. Skin is without rash or lesion. Neurologic examination is brief but nonfocal. - Labs CBC & Chem 7: 01/29/24 07:00 01/31/24 08:51 Labs: Abnormal Lab Results - Last 24 Hours (Table) 01/30/24 01/30/24 01/31/24 Range/Units 16:39 19:58 05:05 ABG pH 7.22 L (7.35-7.45) ABG pCO2 50 H (35-45) mmHg ABG pO2 111 H (83-108) mmHg ABG HCO3 20 L (21-25) mmol/L ABG O2 Saturation 97.3 H (94-97) % Sodium (137-145) mmol/L Carbon Dioxide (22-30) mmol/L BUN (7-17) mg/dL Creatinine (0.52-1.04) mg/dL Glucose (74-99) mg/dL POC Glucose (mg/dL) 188 H 179 H (70-110) mg/dL Calcium (8.4-10.2) mg/dL 01/31/24 01/31/24 01/31/24 Range/Units 05:26 08:51 11:15 ABG pH (7.35-7.45) ABG pCO2 (35-45) mmHg ABG pO2 (83-108) mmHg ABG HCO3 (21-25) mmol/L ABG O2 Saturation (94-97) % Sodium 133 L (137-145) mmol/L Carbon Dioxide 17 L (22-30) mmol/L BUN 33 H (7-17) mg/dL Creatinine 1.34 H (0.52-1.04) mg/dL Glucose 259 H (74-99) mg/dL POC Glucose (mg/dL) 248 H 292 H (70-110) mg/dL Calcium 8.2 L (8.4-10.2) mg/dL Microbiology - Last 24 Hours (Table) 01/28/24 12:31 Urine Culture - Final Urine,Clean Catch Escherichia coli Assessment and Plan Assessment: Acute diabetic ketoacidosis. Acute urinary tract infection, secondary to Escherichia coli. Suspected sepsis, secondary to UTI. Acute on chronic kidney injury. Severe metabolic acidosis, multifactorial. Possible obstructive sleep apnea syndrome. Coronary artery disease, with previous stent placement. History of lung cancer, status post lobectomy. History of essential hypertension. Dyslipidemia. Diabetes mellitus. Stage IV chronic kidney disease. Bipolar disorder. Plan: Plan dated January 31, 2024. Earlier today, the patient was very sleepy and lethargic. Her BiPAP was manipulated by our nurse practitioner, and she appears to be doing much better. She is awake and alert. She is on 3 L of oxygen by nasal cannula. She continues on a sodium bicarbonate drip. Labs, x-rays, and medications are reviewed. We will continue to follow and make recommendations along the way. Prognosis is guarded. Time with Patient: Less than 30
--- NOTE | 2024-01-31 15:59 | P.PN ---
Progress Note - Text Progress Note Date: 01/31/24 Chief Complaint: Weakness This is a 73-year-old patient, follows with visiting physicians Dr. Waller. At her baseline patient does use a cane sometimes a walker. Legal guardian is Marianela Syed Patient presents with weakness. Decreased appetite. Last bowel movement was a bout a week ago. Normally has a bowel movement average about every 4 days. Denies any fever and chills. Has a dry cough for last 3 days. Weak and tired January 28: Admitted with DKA. Pneumonia. Feeling better today. Some dry cough. Eating fair. On insulin drip. Bicarb 11. Remains on insulin drip. January 29: Yesterday patient evening became hypotensive. Bicarbonate was low. Was put on a bicarbonate drip. Switched over to insulin last night. Has been rather sleepy since last night. Until this afternoon.Placed on BiPAP. GH did not show bicarb retention. Will stop Cymbalta for now. January 30: Patient awake today. Communicating well. Breathing better. Remains on bicarbonate drip. Bicarbonate 17. Oral intake much better. Active Medications Acetaminophen (Acetaminophen Tab 325 Mg Tab) 650 mg PO Q6HR [facility] Last Admin: 01/31/24 11:48 Dose: 650 mg Allopurinol (Allopurinol 100 Mg Tab) 100 mg PO DAILY [facility] Last Admin: 01/31/24 08:31 Dose: 100 mg Amlodipine Besylate (Amlodipine 5 Mg Tab) 5 mg PO DAILY [facility] Last Admin: 01/31/24 08:31 Dose: 5 mg Aripiprazole (Aripiprazole 10 Mg Tab) 10 mg PO DAILY [facility] Last Admin: 01/31/24 08:31 Dose: 10 mg Atorvastatin Calcium (Atorvastatin 40 Mg Tab) 40 mg PO [facility] Last Admin: 01/30/24 20:31 Dose: 40 mg Dextrose/Water (Dextrose 50% Syringe 50 Ml) 25 ml IVP PER PROTOCOL PRN; Protocol PRN Reason: Hypoglycemia Dextrose/Water (Dextrose 50% Syringe 50 Ml) 50 ml IVP PER PROTOCOL PRN; Protocol PRN Reason: Hypoglycemia Last Admin: 01/29/24 03:53 Dose: 50 ml Famotidine (Famotidine 20 Mg Tab) 20 mg PO [facility] Last Admin: 01/30/24 20:31 Dose: 20 mg Ceftriaxone Sodium 1 gm/ (Sodium Chloride) 50 mls @ 100 mls/hr IVPB Q24H [facility]; Protocol Last Admin: 01/30/24 23:07 Dose: 100 mls/hr Sodium Bicarbonate 150 ml/ (Dextrose/Water) 1,150 mls @ 50 mls/hr IV .Q23H [facility] Last Admin: 01/30/24 20:33 Dose: 50 mls/hr Insulin Aspart (Insulin Aspart (Novolog) 100 Unit/Ml Vial) 0 unit SQ AC-TID [facility]; Protocol Last Admin: 01/31/24 11:49 Dose: 6 unit Insulin Detemir (Insulin Detemir (Levemir) 100 Unit/Ml Syr) 30 unit SQ [facility] Last Admin: 01/30/24 20:31 Dose: 30 unit Metoprolol Tartrate (Metoprolol Tartrate 25 Mg Tab) 25 mg PO BID [facility] Last Admin: 01/31/24 08:31 Dose: 25 mg Miscellaneous Information (Potassium Replacement Protocol 1 Each Misc) 1 each MISCELLANE DAILY PRN; Protocol PRN Reason: Per Protocol Naloxone HCl (Naloxone 0.4 Mg/Ml 1 Ml Vial) 0.2 mg IV Q2M PRN PRN Reason: Opioid Reversal Non-Formulary Medication (Mirabegron [Myrbetriq]) 25 mg PO DAILY [facility] Last Admin: 01/31/24 08:31 Dose: Not Given Nystatin (Nystatin 100,000 Unit/Gm Powd 15 Gm) 1 applic TOPICAL BID [facility]; Protocol Last Admin: 01/31/24 08:31 Dose: 1 applic Ondansetron HCl (Ondansetron 4 Mg/2 Ml Vial) 4 mg IVP Q6HR PRN PRN Reason: Nausea And Vomiting Last Admin: 01/28/24 15:23 Dose: 4 mg Oxybutynin Chloride (Oxybutynin 15 Mg Tab.Er.24) 15 mg PO DAILY [facility] Last Admin: 01/31/24 08:31 Dose: 15 mg Pantoprazole Sodium (Pantoprazole 40 Mg Tablet) 40 mg PO AC-BRKFST [facility] Last Admin: 01/31/24 05:53 Dose: 40 mg Trazodone HCl (Trazodone Hcl 50 Mg Tab) 150 mg PO [facility] Last Admin: 01/30/24 23:07 Dose: Not Given Past medical history to include: Depression, hyperlipidemia, urinary stress incontinence, diabetes mellitus type 2, CAD, COPD, DVT, GERD, hyperlipidemia, mentally incapacitated, chronic kidney disease stage IV, right lobectomy for lung cancer, abdominal wall hernia, Social history: Legal guardian Marianela Syed. Past history of alcohol dependence. Has 2 roommates. Has a caregiver. Uses a walker/cane Physical examination: VITAL SIGNS: 98, 81, 20, 80/62, 99% on 3 L GENERAL: In bed, awake, breathing much better EYES: Pupils equal. Conjunctiva normal. HEENT: External appearance of nose and ears normal, oral cavity dry mucous membranes. NECK: JVD possibly raised; masses not palpable. HEART: First and second heart sounds are normal; edema decreased LUNGS: Respiratory rate increased; decreased breath sounds. ABDOMEN: Soft, non-abdominal tenderness, no guarding rigidity abdominal wall hernia nontender, liver spleen not palpable, no masses palpable. PSYCH: Awake answering questions much better MUSCULOSKELETAL:No Clubbing/cyanosis;muscles-grossly intact. OA NEUROLOGICAL: Cranial nerves grossly intact; no facial asymmetry, INVESTIGATIONS, reviewed in the clinical context: January 30: ABG: pCO2 50 pO2 111 potassium 3.7 BUN 33 creatinine 1.34 January 29: ABG: pH 7.23 pCO2 33 pO2 109 sodium 130 potassium 4 bicarb 11 BUN 39 creatinine 1.56 procalcitonin 22.7 January 28: White count 9 hemoglobin 10.3 platelets 184 sodium 130 potassium 3.9 BUN 37 creatinine 1.33 bicarb 11 ABG: pH 7.03 pCO2 18 bicarbonate 5 sodium 133 potassium 4.3 bicarb less than 5 BUN 43 creatinine 1.86 blood glucose 290 Troponin I 0.053 TSH 0.363 EKG tracing personally reviewed by me-sinus tachycardia. Nonspecific ST-T wave changes. Chest x-ray film personally reviewed by me-questionable infiltrate CT brain: Age-related chronic changes Assessment and plan: -Probable pneumonia. suspect gram-negative organism IV ceftriaxone -Acute metabolic encephalopathy could be from pneumonia, acidosis: Resolved -Diabetic ketoacidosis: Responded Patient off insulin drip. Levemir resumed -Chronic congestive heart failure exacerbation from diastolic dysfunction. EF 55-60%.: Euvolemic -Gallstones, asymptomatic -Hypervolemic, hyponatremia,: -Morbid obesity BMI 51.7 Weight loss measures -Suspect chronic kidney disease stage III from diabetic nephropathy and nephrosclerosis Follow renal function closely -Metabolic acidosis: Slow to respond IV bicarbonate drip continue -Diabetes mellitus type 2 on insulin, uncontrolled with hyperglycemia Increase Levemir to 36 units at night -Depression and anxiety Abilify 10 mg a day. Cymbalta-hold -Essential hypertension, Norvasc Lopressor 25 mg twice a day. Hold Cozaar -Hyperuricemia Allopurinol 100 mg a day -GERD Protonix 20 mg daily -Chronic urinary stress incontinence Oxybutynin 15 mg a day, Myrbetriq 25 mg a day -Chronic arthritis with pain Prather 10 1 tablet every 6 when necessary -Chronic hard of hearing -Chronic medical debility. At her baseline uses a walker -Legal guardian: Marianela Syed 3 L nasal cannula. Increase Levemir. Other medications to continue. Including bicarbonate drip. Past Medical History Past Medical History: Asthma, Coronary Artery Disease (CAD), Cancer, Chest Pain / Angina, COPD, Diabetes Mellitus, Deep Vein Thrombosis (DVT), GERD/Reflux, Hyperlipidemia, Hypertension, Myocardial Infarction ([place]), Osteoarthritis (OA) Additional Past Medical History / Comment(s): mentally incapacitated per guardian, morbid obesity, Chronic kidney disease stage IV, chronic bronchitis, lobectomy for lung cancer, abdominal wall hernia R side, generalized weakness, gait dysfunction, falls, DJD T12 and L1, urine incontinence at times. The patient lives w/her guardian Marianela Syed who is new to this role so wasn't able to confirm health hx., gets bubble pack of meds set up by Visiting Physician- takes own meds per guardian Last Myocardial Infarction Date:: 01/20/09 History of Any Multi-Drug Resistant Organisms: VRE Date of last positivie culture/infection: 11/13/17 MDRO Source:: VRE URINE Past Surgical History: Section, Heart Catheterization, Heart Catheterization With Stent, Orthopedic Surgery Additional Past Surgical History / Comment(s): Lung lobectomy, ORIF RIGHT ULNA/RADIUS, left rotator cuff repair, cataract removals, heel surgery r/t infection (laterality unknown), colonoscopies/ benign polypectomy, PCI/ stent x2, guardian unable to confirm Past Anesthesia/Blood Transfusion Reactions: No Reported Reaction Date of Last Stent Placement:: 11/2016 Past Psychological History: Anxiety, Bipolar, Depression Smoking Status: Never smoker Past Alcohol Use History: None Reported Past Drug Use History: None Reported
[2024-01-31 16:45] LABS: Glucose,Whole Blood 247 mg/dL (70-110)
[2024-01-31 20:28] LABS: Glucose,Whole Blood 335 mg/dL (70-110)
[2024-01-31] MEDS ORDERED: ZINC OXIDE PASTE (Z-GUARD) 1 APPLIC TOPICAL PRN (21:28)
[2024-01-31] MEDS: INSULIN DETEMIR (LEVEMIR) 100 UNIT/ML SYR SQ SCH (21:34)
[2024-02-01 06:01] LABS: Glucose,Whole Blood 293 mg/dL (70-110)
[2024-02-01 08:44] LABS: African American GFR (CKD) 51 (>60 ml/min/1.73 sqM); Anion Gap 6 mmol/L; Blood Urea Nitrogen 33 mg/dL (7-17); Calcium 7.6 mg/dL (8.4-10.2); Carbon Dioxide 19 mmol/L (22-30); Chloride 107 mmol/L (98-107); Glucose 255 mg/dL (74-99); Non-African American GFR(CKD) 44 (>60 ml/min/1.73 sqM); Potassium 3.1 mmol/L (3.5-5.1); Sodium 132 mmol/L (137-145)
[2024-02-01 11:39] LABS: Glucose,Whole Blood 321 mg/dL (70-110)
[2024-02-01] MEDS: POTASSIUM CHLORIDE ER 20 MEQ TAB.ER PO STA (12:50)
--- NOTE | 2024-02-01 12:55 | P.PN ---
Subjective Progress Note Date: 02/01/24 Principal diagnosis: Urinary tract infection/sepsis. Acute diabetic ketoacidosis, UTI, This is a pleasant 73-year-old female patient with a history of coronary artery disease lung cancer with previous lobectomy, chronic kidney disease stage IV, diabetes mellitus, hypertension, hyperlipidemia. Still has bipolar disorder and has a guardian with whom she resides. To the emergency room yesterday with a 3- day history of progressive weakness and inability to get up out of bed. She did have some shortness of breath with a mild nonproductive cough.'s not mild nausea. No acute cardiopulmonary process. CT scan of the brain revealed age- related atrophic and chronic small vessel ischemic change without acute intracranial process. She was initially found to be in diabetic ketoacidosis with a bicarb of less than 5 and acetone positive. Urinalysis was cloudy with positive ketones moderate blood and many bacteria. Viral screen was negative. She is seen today in consultation in the emergency department. She is currently resting on a stretcher. Awake and alert in no acute distress. She is a poor historian. She is maintaining good O2 saturations in the upper 90s on room air. She has been afebrile. Hemodynamically stable. Most recent lab results reveal white count 9.0. Hemoglobin 10.3. Platelets 184. Sodium 130. Potassium 3.9. Bicarb 11. Anion gap 7. BUN 37. Creatinine 1.33. Glucose 268. She is currently on an insulin drip at 0.012 units/kg/h. She is on D5 and half-normal saline with 20 KCl at 150 MLS per hour. Antibiotics in the form of ceftriaxone. Patient was read today on 01/30/2024, patient is now on the medical floor, being followed by Dr. Jackson. We have seen this patient initially for potential admission to the ICU, however her anion gap has closed, and I recommended admitting the patient to the medical floor. Patient is sleepy, she is noted to have clear-cut symptoms of obstructive sleep apnea, seems to be apneic intermittently, and she has loud snoring. Hence I recommended BiPAP for this patient. ABG today showed a pO2 of 109 pCO2 33 pH of 7.23, hence patient is still on bicarb drip, and she was given 1 amp of bicarb. Antibiotics baca, patient remains on Rocephin, she had some positive blood cultures for Staph epidermidis/Staph hominis, felt to be more likely a skin contaminant. Renal functioning is better today, creatinine is down to 1.56 from 1.71 yesterday. Patient does have history of chronic kidney disease. Urine cultures are positive for gram-negative bacilli, patient is on Rocephin, final culture is mark barclay Progress note dated January 31, 2024. The patient is seen today room 369. She was initially seen and admitted for diagnosis of diabetic ketoacidosis. Earlier today, she was on BiPAP, with setti ngs of 16/5, and 30%. Blood gases showed a pO2 of 111, pCO2 of 50, and pH is 7.22. The patient is currently on 3 L of oxygen by nasal cannula. She is awake and alert. She is getting a sodium bicarbonate drip, with 3 ampoules of sodium bicarb in D5W, at 50 cc an hour. Current labs include a sodium 133, potassium 3.7, chlorides 107, CO2 17, anion gap 9, BUN 33, creatinine 1.34. Glucose is 292. Calcium is 8.2. Blood cultures, were positive for Staphylococcus hominis and Staphylococcus epidermidis. Urine culture was positive for E. coli. The patient is currently on Rocephin. Progress note dated February 01, 2024. The patient is seen today in room 369. Currently, the patient is on 2 L of oxygen by nasal cannula. The patient is getting saline at 50 cc an hour. Clinically, the patient is very stable. The patient denies any shortness of breath, cough, wheezing, chest tightness, or phlegm production. The patient also denies any chest pain or pressure. Blood cultures were apparently positive for Staphylococcus hominis and Staphylococcus epidermidis. Current labs include a sodium 132, potassium 3.1, chlorides 107, CO2 19, BUN 33, and creatinine 1.21. Glucose is 255. Calcium is 7.6. Objective - Vital Signs Vital signs: Vital Signs Temp 98.0 F 02/01/24 11:40 Pulse 77 02/01/24 11:40 Resp 16 02/01/24 11:40 BP 133/76 02/01/24 11:40 Pulse Ox 98 02/01/24 11:40 FiO2 30 02/01/24 03:55 Intake & Output 01/31/24 02/01/24 02/01/24 18:59 06:59 18:59 Intake Total 1490 20 708 Output Total 300 2502 Balance 1190 -2482 708 Intake: IV 40 20 10 Invasive Line 2 20 Invasive Line 3 10 Invasive Line 4 10 20 10 Oral 1450 698 Output: Urine 300 2500 Stool 2 Other: Voiding Method Indwelling Catheter Indwelling Catheter Indwelling Catheter - Exam No acute distress, oriented 3. Awake and alert. Currently on 3 L of oxygen by nasal cannula. HEENT examination is grossly unremarkable. Mucous membranes are moist. No oral lesions. Neck supple. Full range of motion. No adenopathy thyromegaly or neck vein distention. Cardiovascular examination reveals regular rhythm rate. S1-S2 normal. No S3 or S4. No discernible murmur noted. Sounds are distant. Heart rate 77 bpm. Lungs reveal mostly clear breath sounds. Scattered rhonchi are noted. No wheezes or crackles. Breath sounds equal bilaterally. 3 L saturation is 98 %. Abdomen soft bowel sounds are heard. No masses or tenderness. Extremities are intact. No cyanosis clubbing or edema. Skin is without rash or lesion. Neurologic examination is brief but nonfocal. - Labs CBC & Chem 7: 01/29/24 07:00 02/01/24 08:07 Labs: Abnormal Lab Results - Last 24 Hours (Table) 01/31/24 01/31/24 02/01/24 Range/Units 16:41 20:20 05:59 Sodium (137-145) mmol/L Potassium (3.5-5.1) mmol/L Carbon Dioxide (22-30) mmol/L BUN (7-17) mg/dL Creatinine (0.52-1.04) mg/dL Glucose (74-99) mg/dL POC Glucose (mg/dL) 247 H 335 H 293 H (70-110) mg/dL Calcium (8.4-10.2) mg/dL 02/01/24 02/01/24 Range/Units 08:07 11:38 Sodium 132 L (137-145) mmol/L Potassium 3.1 L (3.5-5.1) mmol/L Carbon Dioxide 19 L (22-30) mmol/L BUN 33 H (7-17) mg/dL Creatinine 1.21 H (0.52-1.04) mg/dL Glucose 255 H (74-99) mg/dL POC Glucose (mg/dL) 321 H (70-110) mg/dL Calcium 7.6 L (8.4-10.2) mg/dL Assessment and Plan Assessment: Acute diabetic ketoacidosis. Acute urinary tract infection, secondary to Escherichia coli. Suspected sepsis, secondary to UTI. Acute on chronic kidney injury. Severe metabolic acidosis, multifactorial. Possible obstructive sleep apnea syndrome. Coronary artery disease, with previous stent placement. History of lung cancer, status post lobectomy. History of essential hypertension. Dyslipidemia. Diabetes mellitus. Stage IV chronic kidney disease. Bipolar disorder. Plan: Plan dated January 31, 2024. Earlier today, the patient was very sleepy and lethargic. Her BiPAP was manipulated by our nurse practitioner, and she appears to be doing much better. She is awake and alert. She is on 3 L of oxygen by nasal cannula. She continu es on a sodium bicarbonate drip. Labs, x-rays, and medications are reviewed. We will continue to follow and make recommendations along the way. Prognosis is guarded. Plan dated February 01, 2024. The patient is doing well. Patient is currently on 3 L. Saturations are between 97 to 98%. Labs, x-rays, and all medications are reviewed. The patient is currently on saline at 50 cc an hour. We will continue to follow and make recommendations. Discharge planning is underway. The patient denies any unusual or worsening shortness of breath, cough, wheezing, chest tightness, or phlegm production. Likewise, she denies any chest pain or pressure, fluttering in the chest, or palpitations. Time with Patient: Less than 30
[2024-02-01 16:37] LABS: Glucose,Whole Blood 341 mg/dL (70-110)
--- NOTE | 2024-02-01 18:03 | P.PN ---
Progress Note - Text Progress Note Date: 02/01/24 Chief Complaint: Weakness This is a 73-year-old patient, follows with visiting physicians Dr. Waller. At her baseline patient does use a cane sometimes a walker. Legal guardian is Marianela Syed Patient presents with weakness. Decreased appetite. Last bowel movement was a bout a week ago. Normally has a bowel movement average about every 4 days. Denies any fever and chills. Has a dry cough for last 3 days. Weak and tired January 28: Admitted with DKA. Pneumonia. Feeling better today. Some dry cough. Eating fair. On insulin drip. Bicarb 11. Remains on insulin drip. January 29: Yesterday patient evening became hypotensive. Bicarbonate was low. Was put on a bicarbonate drip. Switched over to insulin last night. Has been rather sleepy since last night. Until this afternoon.Placed on BiPAP. GH did not show bicarb retention. Will stop Cymbalta for now. January 30: Patient awake today. Communicating well. Breathing better. Remains on bicarbonate drip. Bicarbonate 17. Oral intake much better. January 31: Resting in bed. Comfortable. 3 L nasal cannula. Patient going to rehab. tie up worker working on the same. Eating close to 100%. Potassium replaced. On bicarbonate drip. Active Medications Acetaminophen (Acetaminophen Tab 325 Mg Tab) 650 mg PO Q6HR [facility] Last Admin: 02/01/24 16:55 Dose: 650 mg Allopurinol (Allopurinol 100 Mg Tab) 100 mg PO DAILY [facility] Last Admin: 02/01/24 08:53 Dose: 100 mg Amlodipine Besylate (Amlodipine 5 Mg Tab) 5 mg PO DAILY [facility] Last Admin: 02/01/24 08:53 Dose: 5 mg Aripiprazole (Aripiprazole 10 Mg Tab) 10 mg PO DAILY [facility] Last Admin: 02/01/24 08:53 Dose: 10 mg Atorvastatin Calcium (Atorvastatin 40 Mg Tab) 40 mg PO HS [facility] Last Admin: 01/31/24 21:33 Dose: 40 mg Dextrose/Water (Dextrose 50% Syringe 50 Ml) 25 ml IVP PER PROTOCOL PRN; Protocol PRN Reason: Hypoglycemia Dextrose/Water (Dextrose 50% Syringe 50 Ml) 50 ml IVP PER PROTOCOL PRN; Protocol PRN Reason: Hypoglycemia Last Admin: 01/29/24 03:53 Dose: 50 ml Famotidine (Famotidine 20 Mg Tab) 20 mg PO HS [facility] Last Admin: 01/31/24 21:33 Dose: 20 mg Ceftriaxone Sodium 1 gm/ (Sodium Chloride) 50 mls @ 100 mls/hr IVPB Q24H [facility]; Protocol Last Admin: 01/31/24 21:34 Dose: 100 mls/hr Sodium Bicarbonate 150 ml/ (Dextrose/Water) 1,150 mls @ 50 mls/hr IV .Q23H [facility] Last Admin: 01/31/24 21:35 Dose: 50 mls/hr Insulin Aspart (Insulin Aspart (Novolog) 100 Unit/Ml Vial) 0 unit SQ AC-TID [facility]; Protocol Last Admin: 02/01/24 16:55 Dose: 8 unit Insulin Detemir (Insulin Detemir (Levemir) 100 Unit/Ml Syr) 36 unit SQ [facility] Last Admin: 01/31/24 21:34 Dose: 36 unit Metoprolol Tartrate (Metoprolol Tartrate 25 Mg Tab) 25 mg PO BID [facility] Last Admin: 02/01/24 08:53 Dose: 25 mg Miscellaneous Information (Potassium Replacement Protocol 1 Each Misc) 1 each MISCELLANE DAILY PRN; Protocol PRN Reason: Per Protocol Naloxone HCl (Naloxone 0.4 Mg/Ml 1 Ml Vial) 0.2 mg IV Q2M PRN PRN Reason: Opioid Reversal Non-Formulary Medication (Mirabegron [Myrbetriq]) 25 mg PO DAILY [facility] Last Admin: 02/01/24 10:26 Dose: Not Given Nystatin (Nystatin 100,000 Unit/Gm Powd 15 Gm) 1 applic TOPICAL BID [facility]; Protocol Last Admin: 02/01/24 08:54 Dose: 1 applic Ondansetron HCl (Ondansetron 4 Mg/2 Ml Vial) 4 mg IVP Q6HR PRN PRN Reason: Nausea And Vomiting Last Admin: 01/28/24 15:23 Dose: 4 mg Oxybutynin Chloride (Oxybutynin 15 Mg Tab.Er.24) 15 mg PO DAILY [facility] Last Admin: 02/01/24 08:53 Dose: 15 mg Pantoprazole Sodium (Pantoprazole 40 Mg Tablet) 40 mg PO AC-BRKFST [facility] Last Admin: 02/01/24 06:32 Dose: 40 mg Petrolatum (Zinc Oxide Paste (Z-Guard) 1 Applic) 1 applic TOPICAL Q2HR PRN; Protocol PRN Reason: Wound Healing Trazodone HCl (Trazodone Hcl 50 Mg Tab) 150 mg PO HS [facility] Last Admin: 01/31/24 21:33 Dose: 150 mg Past medical history to include: Depression, hyperlipidemia, urinary stress incontinence, diabetes mellitus type 2, CAD, COPD, DVT, GERD, hyperlipidemia, mentally incapacitated, chronic kidney disease stage IV, right lobectomy for lung cancer, abdominal wall hernia, Social history: Legal guardian Marianela Syed. Past history of alcohol dependence. Has 2 roommates. Has a caregiver. Uses a walker/cane Physical examination: VITAL SIGNS: 97.7, 92, 16, 135 x 68, 96% on 3 L GENERAL: Resting in bed comfortable EYES: Pupils equal. Conjunctiva normal. HEENT: External appearance of nose and ears normal, oral cavity dry mucous membranes. NECK: JVD possibly raised; masses not palpable. HEART: First and second heart sounds are normal; edema decreased LUNGS: Respiratory rate increased; decreased breath sounds. ABDOMEN: Soft, non-abdominal tenderness, no guarding rigidity abdominal wall hernia nontender, liver spleen not palpable, no masses palpable. PSYCH: Awake answering questions much better MUSCULOSKELETAL:No Clubbing/cyanosis;muscles-grossly intact. OA NEUROLOGICAL: Cranial nerves grossly intact; no facial asymmetry, INVESTIGATIONS, reviewed in the clinical context: January 31: Potassium 3.1 creatinine 1.21 January 30: ABG: pCO2 50 pO2 111 potassium 3.7 BUN 33 creatinine 1.34 January 29: ABG: pH 7.23 pCO2 33 pO2 109 sodium 130 potassium 4 bicarb 11 BUN 39 creatinine 1.56 procalcitonin 22.7 January 28: White count 9 hemoglobin 10.3 platelets 184 sodium 130 potassium 3.9 BUN 37 creatinine 1.33 bicarb 11 ABG: pH 7.03 pCO2 18 bicarbonate 5 sodium 133 potassium 4.3 bicarb less than 5 BUN 43 creatinine 1.86 blood glu cose 290 Troponin I 0.053 TSH 0.363 EKG tracing personally reviewed by me-sinus tachycardia. Nonspecific ST-T wave changes. Chest x-ray film personally reviewed by me-questionable infiltrate CT brain: Age-related chronic changes Assessment and plan: -Probable pneumonia. suspect gram-negative organism IV ceftriaxone -Acute metabolic encephalopathy could be from pneumonia, acidosis: Resolved -Diabetic ketoacidosis: Responded Patient off insulin drip. Levemir resumed -Chronic congestive heart failure exacerbation from diastolic dysfunction. EF 55-60%.: Euvolemic -Gallstones, asymptomatic -Hypervolemic, hyponatremia,: -Morbid obesity BMI 51.7 Weight loss measures -Suspect chronic kidney disease stage III from diabetic nephropathy and nephrosclerosis Follow renal function closely -Metabolic acidosis: IV bicarbonate drip continue -Diabetes mellitus type 2 on insulin, uncontrolled with hyperglycemia Increase Levemir to 40 units at night -Depression and anxiety Abilify 10 mg a day. Cymbalta-hold -Essential hypertension, Norvasc Lopressor 25 mg twice a day. Hold Cozaar -Hyperuricemia Allopurinol 100 mg a day -GERD Protonix 20 mg daily -Chronic urinary stress incontinence Oxybutynin 15 mg a day, Myrbetriq 25 mg a day -Chronic arthritis with pain [place] 10 1 tablet every 6 when necessary -Chronic hard of hearing -Chronic medical debility. At her baseline uses a walker -Legal guardian: Marianela Syed Continue bicarbonate drip. Supplement potassium. Increase Levemir to 40. Changed to diabetic diet. Pending rehab Past Medical History Past Medical History: Asthma, Coronary Artery Disease (CAD), Cancer, Chest Pain / Angina, COPD, Diabetes Mellitus, Deep Vein Thrombosis (DVT), GERD/Reflux, Hyperlipidemia, Hypertension, Myocardial Infarction (PA), Osteoarthritis (OA) Additional Past Medical History / Comment(s): mentally incapacitated per guardian, morbid obesity, Chronic kidney disease stage IV, chronic bronchitis, lobectomy for lung cancer, abdominal wall hernia R side, generalized weakness, gait dysfunction, falls, DJD T12 and L1, urine incontinence at times. The marie hong lives w/her guardian Marianela Syed who is new to this role so wasn't able to confirm health hx., gets bubble pack of meds set up by Visiting Physician-takes own meds per guardian Last Myocardial Infarction Date:: 01/20/09 History of Any Multi-Drug Resistant Organisms: VRE Date of last positivie culture/infection: 11/13/17 MDRO Source:: VRE URINE Past Surgical History: Section, Heart Catheterization, Heart Catheterization With Stent, Orthopedic Surgery Additional Past Surgical History / Comment(s): Lung lobectomy, ORIF RIGHT ULNA/RADIUS, left rotator cuff repair, cataract removals, heel surgery r/t infection (laterality unknown), colonoscopies/ benign polypectomy, PCI/ stent x2, guardian unable to confirm Past Anesthesia/Blood Transfusion Reactions: No Reported Reaction Date of Last Stent Placement:: 11/2016 Past Psychological History: Anxiety, Bipolar, Depression Smoking Status: Never smoker Past Alcohol Use History: None Reported Past Drug Use History: None Reported
[2024-02-01 19:22] LABS: Glucose,Whole Blood 293 mg/dL (70-110)
[2024-02-01] MEDS: INSULIN ASPART (NovoLOG) 100 UNIT/ML VIAL SQ ONE (20:49)
[2024-02-01] MEDS: INSULIN DETEMIR (LEVEMIR) 100 UNIT/ML SYR SQ SCH (20:49)
[2024-02-02 06:05] LABS: Glucose,Whole Blood 275 mg/dL (70-110)
[2024-02-02 10:19] VITALS: TEMP 97.7
[2024-02-02 11:37] LABS: Glucose,Whole Blood 373 mg/dL (70-110)
[2024-02-02 12:30] VITALS: BP 123/78; PULSE 75; RESP 18
--- NOTE | 2024-02-02 12:54 | P.PN ---
Subjective Progress Note Date: 02/02/24 Principal diagnosis: Urinary tract infection/sepsis. Acute diabetic ketoacidosis, UTI, This is a pleasant 73-year-old female patient with a history of coronary artery disease lung cancer with previous lobectomy, chronic kidney disease stage IV, diabetes mellitus, hypertension, hyperlipidemia. Still has bipolar disorder and has a guardian with whom she resides. To the emergency room yesterday with a 3- day history of progressive weakness and inability to get up out of bed. She did have some shortness of breath with a mild nonproductive cough.'s not mild nausea. No acute cardiopulmonary process. CT scan of the brain revealed age- related atrophic and chronic small vessel ischemic change without acute intracranial process. She was initially found to be in diabetic ketoacidosis with a bicarb of less than 5 and acetone positive. Urinalysis was cloudy with positive ketones moderate blood and many bacteria. Viral screen was negative. She is seen today in consultation in the emergency department. She is currently resting on a stretcher. Awake and alert in no acute distress. She is a poor historian. She is maintaining good O2 saturations in the upper 90s on room air. She has been afebrile. Hemodynamically stable. Most recent lab results reveal white count 9.0. Hemoglobin 10.3. Platelets 184. Sodium 130. Potassium 3.9. Bicarb 11. Anion gap 7. BUN 37. Creatinine 1.33. Glucose 268. She is currently on an insulin drip at 0.012 units/kg/h. She is on D5 and half-normal saline with 20 KCl at 150 MLS per hour. Antibiotics in the form of ceftriaxone. Patient was read today on 01/30/2024, patient is now on the medical floor, being followed by Dr. Jackson. We have seen this patient initially for potential admission to the ICU, however her anion gap has closed, and I recommended admitting the patient to the medical floor. Patient is sleepy, she is noted to have clear-cut symptoms of obstructive sleep apnea, seems to be apneic intermittently, and she has loud snoring. Hence I recommended BiPAP for this patient. ABG today showed a pO2 of 109 pCO2 33 pH of 7.23, hence patient is still on bicarb drip, and she was given 1 amp of bicarb. Antibiotics baca, patient remains on Rocephin, she had some positive blood cultures for Staph epidermidis/Staph hominis, felt to be more likely a skin contaminant. Renal functioning is better today, creatinine is down to 1.56 from 1.71 yesterday. Patient does have history of chronic kidney disease. Urine cultures are positive for gram-negative bacilli, patient is on Rocephin, final culture is mark barclay Progress note dated January 31, 2024. The patient is seen today room 369. She was initially seen and admitted for diagnosis of diabetic ketoacidosis. Earlier today, she was on BiPAP, with setti ngs of 16/5, and 30%. Blood gases showed a pO2 of 111, pCO2 of 50, and pH is 7.22. The patient is currently on 3 L of oxygen by nasal cannula. She is awake and alert. She is getting a sodium bicarbonate drip, with 3 ampoules of sodium bicarb in D5W, at 50 cc an hour. Current labs include a sodium 133, potassium 3.7, chlorides 107, CO2 17, anion gap 9, BUN 33, creatinine 1.34. Glucose is 292. Calcium is 8.2. Blood cultures, were positive for Staphylococcus hominis and Staphylococcus epidermidis. Urine culture was positive for E. coli. The patient is currently on Rocephin. Progress note dated February 01, 2024. The patient is seen today in room 369. Currently, the patient is on 2 L of oxygen by nasal cannula. The patient is getting saline at 50 cc an hour. Clinically, the patient is very stable. The patient denies any shortness of breath, cough, wheezing, chest tightness, or phlegm production. The patient also denies any chest pain or pressure. Blood cultures were apparently positive for Staphylococcus hominis and Staphylococcus epidermidis. Current labs include a sodium 132, potassium 3.1, chlorides 107, CO2 19, BUN 33, and creatinine 1.21. Glucose is 255. Calcium is 7.6. Progress note dated February 02, 2024. 73-year-old female seen today in room 369. Currently, the patient is on nasal O2 at 3 L. She did use BiPAP last night, with settings of 16/5, and 30%. Cl inically, she states that she is feeling well. She is not receiving any IV fluids. Her breathing is much improved. Current labs include only a glucose of 373. Blood cultures were positive for both Staphylococcus hominis and Staphylococcus epidermidis. Objective - Vital Signs Vital signs: Vital Signs Temp 97.7 F 02/02/24 08:50 Pulse 75 02/02/24 12:20 Resp 18 02/02/24 12:20 BP 123/78 02/02/24 12:20 Pulse Ox 98 02/02/24 12:20 FiO2 30 02/02/24 03:42 Intake & Output 02/01/24 02/02/24 02/02/24 18:59 06:59 18:59 Intake Total 1258 20 450 Output Total 4000 1100 Balance -2742 -1080 450 Intake: IV 20 20 10 Invasive Line 4 20 20 10 Oral 1238 440 Output: Urine 4000 1100 Other: Voiding Method Indwelling Catheter Indwelling Catheter Indwelling Catheter # Bowel Movements 1 - Exam No acute distress, oriented 3. Awake and alert. Currently on 2 L of oxygen by nasal cannula. HEENT examination is grossly unremarkable. Mucous membranes are moist. No oral lesions. Neck supple. Full range of motion. No adenopathy thyromegaly or neck vein distention. Cardiovascular examination reveals regular rhythm rate. S1-S2 normal. No S3 or S4. No discernible murmur noted. Sounds are distant. Heart rate 75 bpm. Lungs reveal mostly clear breath sounds. Scattered rhonchi are noted. No wheezes or crackles. Breath sounds equal bilaterally. 2 L saturation is 98 %. Abdomen soft bowel sounds are heard. No masses or tenderness. Extremities are intact. No cyanosis clubbing or edema. Skin is without rash or lesion. Neurologic examination is brief but nonfocal. - Labs CBC & Chem 7: 01/29/24 07:00 02/01/24 08:07 Labs: Abnormal Lab Results - Last 24 Hours (Table) 02/01/24 02/01/24 02/02/24 Range/Units 16:36 19:20 06:03 POC Glucose (mg/dL) 341 H 293 H 275 H (70-110) mg/dL 02/02/24 Range/Units 11:35 POC Glucose (mg/dL) 373 H (70-110) mg/dL Assessment and Plan Assessment: Acute diabetic ketoacidosis. Acute urinary tract infection, secondary to Escherichia coli. Suspected sepsis, secondary to UTI. Acute on chronic kidney injury. Severe metabolic acidosis, multifactorial. Possible obstructive sleep apnea syndrome. Coronary artery disease, with previous stent placement. History of lung cancer, status post lobectomy. History of essential hypertension. Dyslipidemia. Diabetes mellitus. Stage IV chronic kidney disease. Bipolar disorder. Plan: Plan dated January 31, 2024. Earlier today, the patient was very sleepy and lethargic. Her BiPAP was manipulated by our nurse practitioner, and she appears to be doing much better. She is awake and alert. She is on 3 L of oxygen by nasal cannula. She continues on a sodium bicarbonate drip. Labs, x-rays, and medications are reviewed. We will continue to follow and make recommendations along the way. Prognosis is guarded. Plan dated February 01, 2024. The patient is doing well. Patient is currently on 3 L. Saturations are between 97 to 98%. Labs, x-rays, and all medications are reviewed. The patient is currently on saline at 50 cc an hour. We will continue to follow and make recommendations. Discharge planning is underway. The patient denies any unusual or worsening shortness of breath, cough, wheezing, chest tightness, or phlegm production. Likewise, she denies any chest pain or pressure, fluttering in the chest, or palpitations. Plan dated February 02, 2024. The patient appears to be doing well. The patient is currently on 2 L of oxygen, not 3. She did use BiPAP last night at 16/5 and 30%. She is not receiving any IV fluids. Labs, x-rays, and medications are reviewed. Her breathing is much improved. She continues on Rocephin, as well as her other usual medications. We will continue to follow, and make recommendations along the way. Prognosis is guarded. Time with Patient: Less than 30
[2024-02-02 12:56] LABS: African American GFR (CKD) 55 (>60 ml/min/1.73 sqM); Anion Gap 6 mmol/L; Blood Urea Nitrogen 28 mg/dL (7-17); Calcium 8.1 mg/dL (8.4-10.2); Carbon Dioxide 21 mmol/L (22-30); Chloride 107 mmol/L (98-107); Glucose 330 mg/dL (74-99); Non-African American GFR(CKD) 48 (>60 ml/min/1.73 sqM); Potassium 3.6 mmol/L (3.5-5.1); Sodium 134 mmol/L (137-145)
--- NOTE | 2024-02-02 13:42 | P.DS ---
Providers Date of admission: 01/28/24 14:33 Expected date of discharge: 02/02/24 Attending physician: Augustus Jackson Consults: 01/28/24 18:52 Consult Physician Stat Consulting Provider: Milena Tucker Consult Reason/Comments: Tachypnea Do you want consulting provider notified?: Yes Primary care physician: Collin Waller MD Hospital Course: Chief Complaint: Weakness This is a 73-year-old patient, follows with visiting physicians Dr. Waller. At her baseline patient does use a cane sometimes a walker. Legal guardian is Marianela Syed Patient presents with weakness. Decreased appetite. Last bowel movement was about a week ago. Normally has a bowel movement average about every 4 days. Denies any fever and chills. Has a dry cough for last 3 days. Weak and tired January 28: Admitted with DKA. Pneumonia. Feeling better today. Some dry cough. Eating fair. On insulin drip. Bicarb 11. Remains on insulin drip. January 29: Yesterday patient evening became hypotensive. Bicarbonate was low. Was put on a bicarbonate drip. Switched over to insulin last night. Has been rather sleepy since last night. Until this afternoon.Placed on BiPAP. GH did not show bicarb retention. Will stop Cymbalta for now. January 30: Patient awake today. Communicating well. Breathing better. Remains on bicarbonate drip. Bicarbonate 17. Oral intake much better. January 31: Resting in bed. Comfortable. 3 L nasal cannula. Patient going to rehab. 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 Eating close to 100%. Potassium replaced. On bicarbonate drip. February 01: Doing well. Eating well. Accepted at rehab. Discussed with patient. Will start Cymbalta 60 mg a day. Bicarbonate drip discontinued. Creatinine is down to 1.14. Will DC antibiotics. Discussed with nurse. Discussion and discharge planning more than 35 minutes Past medical history to include: Depression, hyperlipidemia, urinary stress incontinence, diabetes mellitus type 2, CAD, COPD, DVT, GERD, hyperlipidemia, mentally incapacitated, chronic kidney disease stage IV, right lobectomy for lung cancer, abdominal wall hernia, Social history: Legal guardian Marianela Syed. Past history of alcohol dependence. Has 2 roommates. Has a caregiver. Uses a walker/cane Physical examination: VITAL SIGNS: 97.7, 75, 18, 123/78, 98% on 2 L GENERAL: In bed, eating EYES: Pupils equal. Conjunctiva normal. HEENT: External appearance of nose and ears normal, oral cavity dry mucous membranes. NECK: JVD possibly raised; masses not palpable. HEART: First and second heart sounds are normal; edema decreased LUNGS: Respiratory rate increased; decreased breath sounds. ABDOMEN: Soft, non-abdominal tenderness, no guarding rigidity abdominal wall hernia nontender, liver spleen not palpable, no masses palpable. PSYCH: Awake answering questions approved currently MUSCULOSKELETAL:No Clubbing/cyanosis;muscles-grossly intact. OA NEUROLOGICAL: Cranial nerves grossly intact; no facial asymmetry, INVESTIGATIONS, reviewed in the clinical context: February 01: Potassium 3.6 BUN 28 creatinine 1.14 January 29: ABG: pH 7.23 pCO2 33 pO2 109 sodium 130 potassium 4 bicarb 11 BUN 39 cr eatinine 1.56 procalcitonin 22.7 January 28: White count 9 hemoglobin 10.3 platelets 184 sodium 130 potassium 3.9 BUN 37 creatinine 1.33 bicarb 11 ABG: pH 7.03 pCO2 18 bicarbonate 5 sodium 133 potassium 4.3 bicarb less than 5 BUN 43 creatinine 1.86 blood glucose 290 Troponin I 0.053 TSH 0.363 EKG tracing personally reviewed by me-sinus tachycardia. Nonspecific ST-T wave changes. Chest x-ray film personally reviewed by me-questionable infiltrate CT brain: Age-related chronic changes Assessment and plan: -Probable pneumonia. suspect gram-negative organism IV ceftriaxone-completed course -Acute metabolic encephalopathy could be from pneumonia, acidosis: Resolved -Diabetic ketoacidosis: Responded Patient off insulin drip. Levemir resumed -Chronic congestive heart failure exacerbation from diastolic dysfunction. EF 55-60%.: Euvolemic -Gallstones, asymptomatic -Hypervolemic, hyponatremia,: -Morbid obesity BMI 51.7 Weight loss measures -Suspect chronic kidney disease stage III from diabetic nephropathy and nephrosclerosis Follow renal function closely -Metabolic acidosis: Better IV bicarbonate drip continue -Diabetes mellitus type 2 on insulin, uncontrolled with hyperglycemia Increase Levemir to 40 units at night -Depression and anxiety Abilify 10 mg a day. Cymbalta-60 mg daily -Essential hypertension, Norvasc Lopressor 25 mg twice a day. Cozaar discontinued -Hyperuricemia Allopurinol 100 mg a day -GERD Protonix 20 mg daily -Chronic urinary stress incontinence Oxybutynin 15 mg a day, Myrbetriq 25 mg a day -Chronic arthritis with pain [place] 10 1 tablet every 6 when necessary -Chronic hard of hearing -Chronic medical debility. At her baseline uses a walker -Legal guardian: Marianela [facility]ed [facility] Past Medical History Past Medical History: Asthma, Coronary Artery Disease (CAD), Cancer, Chest Pain / Angina, COPD, Diabetes Mellitus, Deep Vein Thrombosis (DVT), GERD/Reflux, Hyperlipidemia, Hypertension, Myocardial Infarction ([place]), Osteoarthritis (OA) Additional Past Medical History / Comment(s): mentally incapacitated per guardian, morbid obesity, Chronic kidney disease stage IV, chronic bronchitis, lobectomy for lung cancer, abdominal wall hernia R side, generalized weakness, gait dysfunction, falls, DJD T12 and L1, urine incontinence at times. The patient lives w/her guardian Marianela Syed who is new to this role so wasn't able to confirm health hx., gets bubble pack of meds set up by Visiting Physician- takes own meds per guardian Last Myocardial Infarction Date:: 01/20/09 History of Any Multi-Drug Resistant Organisms: VRE Date of last positivie culture/infection: 11/13/17 MDRO Source:: VRE URINE Past Surgical History: Section, Heart Catheterization, Heart Catheterization With Stent, Orthopedic Surgery Additional Past Surgical History / Comment(s): Lung lobectomy, ORIF RIGHT ULNA/RADIUS, left rotator cuff repair, cataract removals, heel surgery r/t infection (laterality unknown), colonoscopies/ benign polypectomy, PCI/ stent x2, guardian unable to confirm Past Anesthesia/Blood Transfusion Reactions: No Reported Reaction Date of Last Stent Placement:: 11/2016 Past Psychological History: Anxiety, Bipolar, Depression Smoking Status: Never smoker Past Alcohol Use History: None Reported Past Drug Use History: None Reported Plan - Discharge Summary Discharge Rx Participant: No New Discharge Prescriptions: New Nystatin 100,000 Unit/gm Powd [Mycostatin Powder] 1 applic TOPICAL BID each INSULIN ASPART (NovoLOG) [NovoLOG (formulary)] 0 unit SQ AC-TID each Continue Atorvastatin [Lipitor] 40 mg PO HS ARIPiprazole [Abilify] 10 mg PO DAILY allopurinoL [Zyloprim] 100 mg PO DAILY Oxybutynin ER [Ditropan XL] 15 mg PO DAILY Omeprazole [PriLOSEC] 20 mg PO DAILY Metoprolol Tartrate [Lopressor] 25 mg PO BID #0 amLODIPine [Norvasc] 5 mg PO DAILY Empagliflozin [Jardiance] 10 mg PO DAILY traZODone HCL 150 mg PO HS Mirabegron [Myrbetriq] 25 mg PO DAILY Pantoprazole Sodium [Protonix] 20 mg PO DAILY Acetaminophen [Tylenol 8 Hour] 650 mg PO Q6H Changed Furosemide [Lasix] 40 mg PO Q48H #0 Insulin Glargine,Hum.rec.anlog [Basaglar Kwikpen U-100] 40 unit SQ HS #0 DULoxetine HCL [Cymbalta] 60 mg PO DAILY #0 Discontinued DULoxetine HCL [Cymbalta] 60 mg PO BID Losartan [Cozaar] 25 mg PO DAILY Discharge Medication List Atorvastatin [Lipitor] 40 mg PO HS 11/13/17 [History] ARIPiprazole [Abilify] 10 mg PO DAILY 07/22/21 [History] Mirabegron [Myrbetriq] 25 mg PO DAILY 07/22/21 [History] traZODone HCL 150 mg PO HS 07/22/21 [History] allopurinoL [Zyloprim] 100 mg PO DAILY 01/26/22 [History] Omeprazole [PriLOSEC] 20 mg PO DAILY 06/01/23 [History] Oxybutynin ER [Ditropan XL] 15 mg PO DAILY 06/01/23 [History] Metoprolol Tartrate [Lopressor] 25 mg PO BID #0 06/18/23 [Rx] Empagliflozin [Jardiance] 10 mg PO DAILY 01/05/24 [History] amLODIPine [Norvasc] 5 mg PO DAILY 01/05/24 [History] Acetaminophen [Tylenol 8 Hour] 650 mg PO Q6H 01/28/24 [History] Pantoprazole Sodium [Protonix] 20 mg PO DAILY 01/28/24 [History] Furosemide [Lasix] 40 mg PO Q48H #0 02/01/24 [Rx] Nystatin 100,000 Unit/gm Powd [Mycostatin Powder] 1 applic TOPICAL BID each 02/01/24 [Rx] DULoxetine HCL [Cymbalta] 60 mg PO DAILY #0 02/02/24 [Rx] INSULIN ASPART (NovoLOG) [NovoLOG (formulary)] 0 unit SQ AC-TID each 02/02/24 [Rx] Insulin Glargine,Hum.rec.anlog [Basaglar Kwikpen U-100] 40 unit SQ HS #0 02/02/24 [Rx] Follow up Appointment(s)/Referral(s): Collin Waller MD [Primary Care Provider] - 1-2 days [facility], [NON-STAFF] - 1 Week Patient Instructions/Handouts: Chronic Kidney Disease Diet (GEN)
[2024-02-02] MEDS: DULoxetine HCL 60 MG CAPSULE.DR PO SCH (13:49)
[2024-02-02 14:34] VITALS: BMI 117.5
[2024-02-02 16:38] LABS: Glucose,Whole Blood 215 mg/dL (70-110)
--- NOTE | 2024-02-07 07:11 | CDI ---
Documentation Clarification Form Date: 02/07/24 From: Seda Padgett Admit Date: 01/28/2024 02:33:00 PM Patient Name: Colleen Plata Visit Number: [id number] Discharge Date: 02/02/2024 05:07:00 PM ATTENTION: The Clinical Documentation Specialists (CDI) and [facility] Coding Staff appreciate your assistance in clarifying documentation. Please respond to the clarification below the line at the bottom and electronically sign. The CDI & [facility] Coding staff will review the response and follow-up if needed. Please note: Queries are made part of the Legal Health Record. If you have any questions, please contact the author of this message via ITS. Dr. Augustus Jackson, Conflicting documentation has been found in the medical record. As attending physician, please provide clarification. Ed Note documents sepsis meet criteria. Admitted with UTI and sepsis. Dr. Tucker documents UTI with possible sepsis in his consult. Dr. Mirlees documents in 01/30 PN UTI and sepsis. History/Risk Factors: T2DM w DKA, T2DM w CKD, T2DM w hypoglycemia, metabolic encephalopathy, acute on chronic diastolic CHF w HTN and CKD 4, COPD, Morbid obesity w BMI 50.0-59.9 Clinical Indicators: T 99.7, P 114, R 30, BP 152/98, O2 100 ON 2L OF O2 WBC 17.3, Neutrophils 15.5, Lactic acid 1.2, Blood gas: VBG pH 7.03, VBG pCO2 18, VBG HCO3 5 Treatment: IV Levofloxacin, IV fluids, IV Ceftriaxone Please clarify which diagnosis is most appropriate: [ ] Sepsis due to E.coli UTI, with severe sepsis, specify organ failure [ ] Sepsis due to E coli UTI without severe sepsis [ + ] Sepsis ruled out [ ] Other (please specify) [ ] Unable to determine MTDD
== END 2024-02-02 17:07 | DRG 177 ==
LOC: EC 12:11 → 3SCARD 14:33 → 2SICU 19:47 → 3SCARD 01-29 08:24
PROVIDERS: ADMIT Hospitalist; ATTEND Hospitalist
PROC: 5A09457 Assistance with Respiratory Ventilation, 24-96 Consecutive Hours, Continuous Positive Airway Pressure (ICD-10-PCS; principal; 2024-01-30)
DX: J15.69 Pneumonia due to other Gram-negative bacteria (principal); E11.10 Type 2 diabetes mellitus with ketoacidosis without coma; G93.41 Metabolic encephalopathy; I50.33 Acute on chronic diastolic (congestive) heart failure; I13.0 Hypertensive heart and chronic kidney disease with heart failure and stage 1 through stage 4 chronic kidney disease, or unspecified chronic kidney disease; Z68.43 Body mass index [BMI] 50.0-59.9, adult; N18.4 Chronic kidney disease, stage 4 (severe); N17.9 Acute kidney failure, unspecified; E87.1 Hypo-osmolality and hyponatremia; J44.0 Chronic obstructive pulmonary disease with (acute) lower respiratory infection; N39.0 Urinary tract infection, site not specified; E11.649 Type 2 diabetes mellitus with hypoglycemia without coma; E11.22 Type 2 diabetes mellitus with diabetic chronic kidney disease; E66.01 Morbid (severe) obesity due to excess calories; F31.9 Bipolar disorder, unspecified; F10.21 Alcohol dependence, in remission; Z79.4 Long term (current) use of insulin; K21.9 Gastro-esophageal reflux disease without esophagitis; E78.5 Hyperlipidemia, unspecified; N39.3 Stress incontinence (female) (male); F41.9 Anxiety disorder, unspecified; E79.0 Hyperuricemia without signs of inflammatory arthritis and tophaceous disease; I25.10 Atherosclerotic heart disease of native coronary artery without angina pectoris; M47.815 Spondylosis without myelopathy or radiculopathy, thoracolumbar region; K80.20 Calculus of gallbladder without cholecystitis without obstruction; M19.90 Unspecified osteoarthritis, unspecified site; K43.9 Ventral hernia without obstruction or gangrene; I25.2 Old myocardial infarction; H91.90 Unspecified hearing loss, unspecified ear; R26.9 Unspecified abnormalities of gait and mobility; Z79.84 Long term (current) use of oral hypoglycemic drugs; Z79.899 Other long term (current) drug therapy; Z95.5 Presence of coronary angioplasty implant and graft; Z85.118 Personal history of other malignant neoplasm of bronchus and lung; Z86.718 Personal history of other venous thrombosis and embolism; Z91.81 History of falling; Z86.19 Personal history of other infectious and parasitic diseases; Z88.1 Allergy status to other antibiotic agents
CPT/HCPCS: 36415; 36600; 51702; 70450; 71046; 80048; 80051; 80053; 81001; 82009; 82550; 82565; 82803; 82805; 82947; 83605; 83735; 83880; 84100; 84145; 84443; 84484; 84520; 85025; 85610; 85730; 87040; 87077; 87086; 87186; 87636; 93005; 94660; 94760; 96361; 96365; 96366; 96367; 96368; 96375; 99291

== ENCOUNTER 2024-03-23 16:12 | Emergency (ER) | payer MEDICARE, OTHER ==
[2024-03-23] MEDS ORDERED: LORATADINE 10 MG TAB ONE (17:33)
--- NOTE | 2024-04-26 07:53 | XR ---
Patient Colleen Plata ID [id number] Order # EXAMINATION TYPE: XR chest 2V DATE OF EXAM: 03/23/2024 COMPARISON: No comparison available on downtime PACS. INDICATION: Short of breath and fluid retention TECHNIQUE: Frontal and lateral views of the chest are obtained. FINDINGS: The heart size is enlarged. The pulmonary vasculature is prominent. Mild increased lung markings are present. This may be partially technical given the body habitus. No suspicious focal consolidation is evident. Posterior infiltrate is not excluded. IMPRESSION: 1. Diffuse increased lung markings may be greater in the posterior portion on the lateral projection. Correlate for atelectasis. This may be partially technical in nature.
== END 2024-03-23 23:45 | disposition home or self-care (01) ==
LOC: EC 16:12
DX: R06.02 Shortness of breath (principal)
CPT/HCPCS: 71046; 93005; 99285

== ENCOUNTER 2024-04-05 21:34 | Emergency (ER) | payer MEDICARE, OTHER ==
[2024-04-06 04:34] LABS: Basophils % (A) 0 %; Eosinophils # (A) 0.1 k/uL (0-0.7); Eosinophils % (A) 2 %; HCT 30.9 % (34.0-46.0); HGB 9.7 gm/dL (11.4-16.0); Hypochromasia Marked; Lymphocytes # (A) 0.7 k/uL (1.0-4.8); Lymphocytes % (A) 13 %; MCH 28.2 pg (25.0-35.0); MCHC 31.3 g/dL (31.0-37.0); MCV 90.1 fL (80.0-100.0); Mean Platelet Volume 9.1; Monocytes # (A) 0.3 k/uL (0-1.0); Monocytes % (A) 6 %; Neutrophils # (A) 4.3 k/uL (1.3-7.7); Neutrophils % (A) 77 %; Platelet Count 153 k/uL (150-450); RBC 3.43 m/uL (3.80-5.40); RDW 15.2 % (11.5-15.5); WBC 5.5 k/uL (3.8-10.6)
[2024-04-06 04:50] LABS: INR 0.9 (<1.2); Partial Thromboplastin Time 22.3 sec (22.0-30.0); Prothrombin Time 10.1 sec (10.0-12.5)
[2024-04-06 06:19] LABS: ALT 15 U/L (4-34); AST 29 U/L (14-36); African American GFR (CKD) 52 (>60 ml/min/1.73 sqM); Albumin 3.5 g/dL (3.5-5.0); Alkaline Phosphatase 110 U/L (38-126); Blood Urea Nitrogen 52 mg/dL (7-17); Calcium 8.2 mg/dL (8.4-10.2); Chloride 94 mmol/L (98-107); Glucose 98 mg/dL (74-99); Non-African American GFR(CKD) 45 (>60 ml/min/1.73 sqM); Potassium 4.2 mmol/L (3.5-5.1); Sodium 136 mmol/L (137-145); Total Bilirubin 0.6 mg/dL (0.2-1.3); Total Protein 5.7 g/dL (6.3-8.2)
[2024-04-06 06:26] LABS: Anion Gap 4 mmol/L
[2024-04-06 06:27] LABS: Carbon Dioxide 38 mmol/L (22-30)
[2024-04-06 06:28] LABS: NT-Pro-B-Type Natriuretic Pept 931 pg/mL
--- NOTE | 2024-04-06 08:45 | ED ---
General Adult HPI - General Stated complaint: Acute Kidney Failure Source: patient Mode of arrival: EMS Limitations: no limitations - History of Present Illness Initial comments: This patient is a 74-year-old woman who is transferred here from her long-term care facility to have further evaluation for acute renal failure. The patient reportedly had been scheduled to have CT scan of the chest related to suspected right breast infection. When the patient had gone for the study she could not be given contrast due to her lab results and the patient was sent here. The patient not aware of any urinary changes. Denies flank or abdominal pain. The patient's only complaint is of some right breast tenderness. Onset/Timin -: days(s) Location: chest Quality: dull Consistency: constant Improves with: none Worsens with: none Associated Symptoms: denies other symptoms Treatments Prior to Arrival: none - Related Data Home Medications Medication Instructions Recorded Confirmed Atorvastatin [Lipitor] 40 mg PO HS 11/13/17 01/28/24 ARIPiprazole [Abilify] 10 mg PO DAILY 07/22/21 01/28/24 Mirabegron [Myrbetriq] 25 mg PO DAILY 07/22/21 01/28/24 traZODone HCL 150 mg PO HS 07/22/21 01/28/24 allopurinoL [Zyloprim] 100 mg PO DAILY 01/26/22 01/28/24 Omeprazole [PriLOSEC] 20 mg PO DAILY 06/01/23 01/28/24 Oxybutynin ER [Ditropan XL] 15 mg PO DAILY 06/01/23 01/28/24 Empagliflozin [Jardiance] 10 mg PO DAILY 01/05/24 01/28/24 amLODIPine [Norvasc] 5 mg PO DAILY 01/05/24 01/28/24 Acetaminophen [Tylenol 8 Hour] 650 mg PO Q6H 01/28/24 01/28/24 Pantoprazole Sodium [Protonix] 20 mg PO DAILY 01/28/24 01/28/24 Previous Rx's Medication Instructions Recorded Metoprolol Tartrate [Lopressor] 25 mg PO BID #0 06/18/23 Furosemide [Lasix] 40 mg PO Q48H #0 02/01/24 Nystatin 100,000 Unit/gm Powd 1 applic TOPICAL BID each 02/01/24 [Mycostatin Powder] DULoxetine HCL [Cymbalta] 60 mg PO DAILY #0 02/02/24 INSULIN ASPART (NovoLOG) [NovoLOG 0 unit SQ AC-TID each 02/02/24 (formulary)] Insulin Glargine,Hum.rec.anlog 40 unit SQ HS #0 02/02/24 [Basaglar Kwikpen U-100] Clindamycin [Cleocin] 300 mg PO Q6H #56 capsule 04/06/24 Allergies Allergy/AdvReac Type Severity Reaction Status Date / Time cephalexin monohydrate Allergy Rash/Hives/ Verified 04/05/24 21:55 [From Keflex] Itching/Swe lling Review of Systems ROS Statement: Those systems with pertinent positive or pertinent negative responses have been documented in the HPI. ROS Other: All systems not noted in ROS Statement are negative. Constitutional: Denies: fever, weakness Respiratory: Denies: cough, dyspnea Cardiovascular: Denies: chest pain, syncope Gastrointestinal: Denies: abdominal pain, vomiting, diarrhea Genitourinary: Denies: dysuria, frequency, hematuria Musculoskeletal: Denies: back pain Skin: Denies: rash Neurological: Denies: headache Past Medical History Past Medical History: Asthma, Coronary Artery Disease (CAD), Cancer, Chest Pain / Angina, COPD, Diabetes Mellitus, Deep Vein Thrombosis (DVT), GERD/Reflux, Hyperlipidemia, Hypertension, Myocardial Infarction ([place]), Osteoarthritis (OA) Additional Past Medical History / Comment(s): mentally incapacitated per guardian, morbid obesity, Chronic kidney disease stage IV, chronic bronchitis, lobectomy for lung cancer, abdominal wall hernia R side, generalized weakness, g ait dysfunction, falls, DJD T12 and L1, urine incontinence at times. The patient lives w/her guardian Marianela Syed who is new to this role so wasn't able to confirm health hx., gets bubble pack of meds set up by Visiting Physician- takes own meds per guardian Last Myocardial Infarction Date:: 01/20/09 History of Any Multi-Drug Resistant Organisms: VRE Date of last positivie culture/infection: 11/13/17 MDRO Source:: VRE URINE Past Surgical History: Section, Heart Catheterization, Heart Catheterization With Stent, Orthopedic Surgery Additional Past Surgical History / Comment(s): Lung lobectomy, ORIF RIGHT ULNA/RADIUS, left rotator cuff repair, cataract removals, heel surgery r/t infection (laterality unknown), colonoscopies/ benign polypectomy, PCI/ stent x2, guardian unable to confirm Past Anesthesia/Blood Transfusion Reactions: No Reported Reaction Date of Last Stent Placement:: 11/2016 Past Psychological History: Anxiety, Bipolar, Depression Additional Psychological History / Comment(s): Pt has a legal guardian, Marianela Syed, unable to confirm her past med. hx Smoking Status: Never smoker Past Alcohol Use History: None Reported Additional Past Alcohol Use History / Comment(s): Past medical record stated past alcohol dependence. Past Drug Use History: None Reported Additional Drug Use History / Comment(s): Past marijuana use. - Past Family History Brother(s) Family Medical History: Cancer General Exam General appearance: alert, in no apparent distress Head exam: Present: atraumatic, normocephalic Eye exam: Present: normal appearance. Absent: scleral icterus, conjunctival injection ENT exam: Present: normal oropharynx Neck exam: Present: normal inspection, full ROM Respiratory exam: Present: normal lung sounds bilaterally. Absent: respiratory distress, wheezes, rales, rhonchi, stridor, accessory muscle use Cardiovascular Exam: Present: regular rate, normal rhythm, normal heart sounds. Absent: systolic murmur, diastolic murmur, rubs, gallop GI/Abdominal exam: Present: soft. Absent: distended, tenderness, guarding, rebound, rigid, mass Extremities exam: Present: normal inspection, normal capillary refill. Absent: pedal edema, calf tenderness Back exam: Present: normal inspection. Absent: CVA tenderness (R), CVA tenderness (L) Neurological exam: Present: alert Skin exam: Present: warm, dry, intact, normal color. Absent: rash Course Vital Signs 04/06/24 10:00 Temperature 98.8 F Pulse Rate 78 Respiratory 20 Rate Blood Pressure 120/74 O2 Sat by Pulse 99 Oximetry Medical Decision Making - Medical Decision Making Given that they were unable to perform the CT scan, I had ultrasound performed to rule out an abscess requiring acute surgical drainage. The patient will have treatment for suspected mastitis. The patient at this point stable to return to the [facility] on antibiotics. The patient should have further workup including mammogram to rule out underlying neoplasm. The patient's labs are not concerning for acute renal failure. Suspect that this was related to hydration status Was pt. sent in by a medical professional or institution (, JOSE, CRAYON PAINTER, urgent care, hospital, or [facility]...) When possible be specific @ -[No] Did you speak to anyone other than the patient for history (EMS, parent, family, police, friend...)? What history was obtained from this source @ -[No] Did you review nursing and triage notes (agree or disagree)? Why? @ -[I reviewed and agree with nursing and triage notes] Were old charts reviewed (outside hosp., previous admission, EMS record, old EKG, old radiological studies, urgent care reports/EKG's, [facility] records)? Report findings @ -[Transfer papers were reviewed] Differential Diagnosis (chest pain, altered mental status, abdominal pain women, abdominal pain men, vaginal bleeding, weakness, fever, dyspnea, syncope, headache, dizziness, GI bleed, back pain, seizure, CVA, palpatations, mental health, musculoskeletal)? @ -[Differential Chest Pain: Stable Angina, Unstable Angina, STEMI, NSTEMI Aortic Dissection, Pneumothorax, Musculoskeletal, Esophageal Spasm GERD, Cholecystitis, Pancreatitis, Zoster, th is is not meant to be an all-inclusive list. EKG interpreted by me (3pts min.). @ -[As above] X-rays interpreted by me (1pt min.). @ -[None done] CT interpreted by me (1pt min.). @ -[None done] U/S interpreted by me (1pt. min.). @ -[None done] What testing was considered but not performed or refused? (CT, X-rays, U/S, labs)? Why? @ -[None] What meds were considered but not given or refused? Why? @ -[None] Did you discuss the management of the patient with other professionals (professionals i.e. JOSE Friend, CRAYON PAINTER, lab, RT, psych nurse, social service assistant, strategic partnership representative, teacher, operations officer afloat, casework supervisor)? Give summary @ -[No] Was smoking cessation discussed for >3mins.? @ -[No] Was critical care preformed (if so, how long)? @ -[No] Were there social determinants of health that impacted care today? How? (Homelessness, low income, unemployed, alcoholism, drug addiction, transportation, low edu. Level, literacy, decrease access to med. care, fdc, rehab)? @ -[No] Was there de-escalation of care discussed even if they declined (Discuss DNR or withdrawal of care, Hospice)? DNR status @ -[No] What co-morbidities impacted this encounter? (DM, HTN, Smoking, COPD, CAD, Cancer, CVA, ARF, Chemo, Hep., AIDS, mental health diagnosis, sleep apnea, morbid obesity)? @ -[None] Was patient admitted / discharged? Hospital course, mention meds given and route, prescriptions, significant lab abnormalities, going to OR and other pertinent info. @ -[As above Undiagnosed new problem with uncertain prognosis? @ -[No] Drug Therapy requiring intensive monitoring for toxicity (Heparin, Nitro, Insulin, Cardizem)? @ -[No] Were any procedures done? @ -[No] Diagnosis/symptom? @ -[Acute right breast pain Acute mastitis Acute, or Chronic, or Acute on Chronic? @ -Acute Uncomplicated (without systemic symptoms) or Complicated (systemic symptoms)? @ -[Uncomplicated Side effects of treatment? @ -[No] Exacerbation, Progression, or Severe Exacerbation? @ -[No] Poses a threat to life or bodily function? How? (Chest pain, [place], [place], pneumonia, PE, COPD, DKA, ARF, appy, cholecystitis, CVA, Diverticulitis, Homicidal, Suicidal, threat to staff... and all critical care pts) @ -[This requires further workup to rule out underlying neoplasm - Lab Data Result diagrams: 04/06/24 04:05 04/06/24 04:05 Lab Results 04/06/24 04/06/24 04/06/24 Range/Units 04:05 04:05 04:05 WBC 5.5 (3.8-10.6) k/uL RBC 3.43 L (3.80-5.40) m/uL Hgb 9.7 L (11.4-16.0) gm/dL Hct 30.9 L (34.0-46.0) % MCV 90.1 (80.0-100.0) fL MCH 28.2 (25.0-35.0) pg MCHC 31.3 (31.0-37.0) g/dL RDW 15.2 (11.5-15.5) % Plt Count 153 (150-450) k/uL MPV 9.1 Neutrophils % 77 % Lymphocytes % 13 % Monocytes % 6 % Eosinophils % 2 % Basophils % 0 % Neutrophils # 4.3 (1.3-7.7) k/uL Lymphocytes # 0.7 L (1.0-4.8) k/uL Monocytes # 0.3 (0-1.0) k/uL Eosinophils # 0.1 (0-0.7) k/uL Basophils # 0.0 (0-0.2) k/uL Hypochromasia Marked PT 10.1 (10.0-12.5) sec INR 0.9 (<1.2) APTT 22.3 (22.0-30.0) sec Sodium 136 L (137-145) mmol/L Potassium 4.2 (3.5-5.1) mmol/L Chloride 94 L (98-107) mmol/L Carbon Dioxide 38 H (22-30) mmol/L Anion Gap 4 mmol/L BUN 52 H (7-17) mg/dL Creatinine 1.18 H (0.52-1.04) mg/dL Est GFR (CKD-EPI)AfAm 52 (>60 ml/min/1.73 sqM) Est GFR (CKD-EPI)NonAf 45 (>60 ml/min/1.73 sqM) Glucose 98 (74-99) mg/dL Calcium 8.2 L (8.4-10.2) mg/dL Total Bilirubin 0.6 (0.2-1.3) mg/dL AST 29 (14-36) U/L ALT 15 (4-34) U/L Alkaline Phosphatase 110 (38-126) U/L Ammonia (<30) umol/L NT-Pro-B Natriuret Pep 931 pg/mL Total Protein 5.7 L (6.3-8.2) g/dL Albumin 3.5 (3.5-5.0) g/dL 04/06/24 Range/Units 04:05 WBC (3.8-10.6) k/uL RBC (3.80-5.40) m/uL Hgb (11.4-16.0) gm/dL Hct (34.0-46.0) % MCV (80.0-100.0) fL MCH (25.0-35.0) pg MCHC (31.0-37.0) g/dL RDW (11.5-15.5) % Plt Count (150-450) k/uL MPV Neutrophils % % Lymphocytes % % Monocytes % % Eosinophils % % Basophils % % Neutrophils # (1.3-7.7) k/uL Lymphocytes # (1.0-4.8) k/uL Monocytes # (0-1.0) k/uL Eosinophils # (0-0.7) k/uL Basophils # (0-0.2) k/uL Hypochromasia PT (10.0-12.5) sec INR (<1.2) APTT (22.0-30.0) sec Sodium (137-145) mmol/L Potassium (3.5-5.1) mmol/L Chloride (98-107) mmol/L Carbon Dioxide (22-30) mmol/L Anion Gap mmol/L BUN (7-17) mg/dL Creatinine (0.52-1.04) mg/dL Est GFR (CKD-EPI)AfAm (>60 ml/min/1.73 sqM) Est GFR (CKD-EPI)NonAf (>60 ml/min/1.73 sqM) Glucose (74-99) mg/dL Calcium (8.4-10.2) mg/dL Total Bilirubin (0.2-1.3) mg/dL AST (14-36) U/L ALT (4-34) U/L Alkaline Phosphatase (38-126) U/L Ammonia <9 (<30) umol/L NT-Pro-B Natriuret Pep pg/mL Total Protein (6.3-8.2) g/dL Albumin (3.5-5.0) g/dL Disposition Clinical Impression: Mastitis Disposition: HOME SELF-CARE Condition: Fair Prescriptions: Clindamycin [Cleocin] 300 mg PO Q6H #56 capsule Is patient prescribed a controlled substance at d/c from ED?: No Referrals: Tre Denise DO [Primary Care Provider] - 1-2 days
[2024-04-06 10:15] VITALS: BP 120/74; PULSE 78; RESP 20; TEMP 98.8
--- NOTE | 2024-04-06 13:15 | XR ---
EXAM: XR Chest, 1 View CLINICAL HISTORY: FELIPA TECHNIQUE: Frontal view of the chest. COMPARISON: January 28, 2024 FINDINGS: Lungs: Large amounts of soft tissue artifact over the lungs due to large body habitus and technique. There are prominent and coarse interstitial markings in the central and basilar lungs bilaterally consistent with underlying emphysema and possibly mild pulmonary edema. No focal consolidation is seen. Pleural space: Unremarkable. No pneumothorax. Heart: Mild to moderate cardiomegaly, exaggerated by technique. Mediastinum: Unremarkable. Normal mediastinal contour. Bones/joints: Unremarkable. No acute fracture. Upper abdomen: There is no pneumoperitoneum under the diaphragm. IMPRESSION: 1. Large amounts of soft tissue artifact over the lungs due to large body habitus and technique. There are prominent and coarse interstitial markings in the central and basilar lungs bilaterally consistent with underlying emphysema and possibly mild pulmonary edema. No focal consolidation is seen. 2. Mild to moderate cardiomegaly, exaggerated by technique.
--- NOTE | 2024-04-07 09:00 | USB ---
Reason for Exam: Clinical finding. Patient History: Menarche at age 13. First Full-Term at age 25. Postmenopausal. Risk Values: Melissa 5 year model risk: 1.8%. NCI Lifetime model risk: 3.9%. Technique: Method: Whole Breast Handheld. Prior Study Comparison: 12/13/1997 Bilateral Diagnostic Mammogram, [facility]. 11/11/2005 Right Diagnostic Mammogram, [facility]. 08/15/2020 Bilateral Screening Mammogram, [facility]. Findings: The whole breast of the right breast, the axilla of the right breast and the retroareolar of the right breast were scanned. A complete US of all four quadrants of the breast, axilla, and retro-areolar region were reviewed. No solid or cystic masses are identified. There is prominent soft tissue edema and skin thickening along the lateral half particularly 7:00 to 11:00. No axillary lymphadenopathy or duct ectasia. Overall Assessment: Incomplete: need additional imaging evaluation, BI-RAD 0 Management: Diagnostic Mammogram of both breasts. Soft tissue swelling along the lateral aspect of the breast, possible mastitis. Clinically correlate. If there are signs/symptoms of infection, the patient's bilateral diagnostic mammograms can be performed following treatment. Otherwise, if the symptoms are atypical, diagnostic mammogram should be performed now in the outpatient clinic to exclude other etiologies such as inflammatory breast cancer. Results were given to the patient verbally at the time of exam. Electronically signed and approved by: Stefani Miranda M.D. Radiologist
== END 2024-04-06 10:15 | disposition home or self-care (01) ==
LOC: EC 21:34
CPT/HCPCS: 36415; 71045; 80053; 82140; 83880; 85025; 85610; 85730; 99284

== ENCOUNTER → 2024-04-05 | Outpatient (CLI) | payer MEDICARE, OTHER ==
[2024-04-05 18:56] LABS: African American GFR (CKD) 42 (>60 ml/min/1.73 sqM); Blood Urea Nitrogen 56 mg/dL (7-17); Non-African American GFR(CKD) 37 (>60 ml/min/1.73 sqM)
== END | disposition home or self-care (01) ==
LOC: RADCTMAIN 16:22
PROVIDERS: ATTEND Family Medicine
DX: L03.313 Cellulitis of chest wall (principal)
CPT/HCPCS: 82565; 84520

== ENCOUNTER → 2024-04-21 | Outpatient (CLI) | payer MEDICARE, OTHER ==
--- NOTE | 2024-04-21 08:25 | MM ---
Reason for Exam: Clinical finding. Last mammogram was performed 3 year(s) and 8 month(s) ago. Patient History: Menarche at age 13. First Full-Term at age 25. Postmenopausal. Risk Values: Melissa 5 year model risk: 1.8%. NCI Lifetime model risk: 3.9%. Tissue Density: The breasts are heterogeneously dense, which may obscure small masses. Findings: Analyzed By CAD. Extensive vascular thickening noted lateral superior right breast with increased density noted. The findings are likely related to cellulitis/underlying infection. Ultrasound correlation is advised. No distinct mass within either breast or suspicious cluster of microcalcifications. Overall Assessment: Incomplete: need additional imaging evaluation, BI-RAD 0 Management: Diagnostic Breast Ultrasound of the right breast. . Results were given to the patient verbally at the time of exam. Patient should continue monthly self-breast exams. A clinical breast exam by your physician is recommended on an annual basis. This exam should not preclude additional follow-up of suspicious palpable abnormalities. Note on Melissa scores and lifetime risk: 1. A Melissa score greater than 3% is considered moderate risk. If this is the case, consider specialist referral to assess eligibility for a risk reducing agent. 2. If overall lifetime risk for the development of breast cancer is 20% or higher, the patient may qualify for future screening with alternating mammogram and breast MRI. Electronically signed and approved by: Benjamin Gray M.D. Radiologis
--- NOTE | 2024-04-21 08:47 | USB ---
Reason for Exam: Clinical finding. Patient History: Menarche at age 13. First Full-Term at age 25. Postmenopausal. Risk Values: Melissa 5 year model risk: 1.8%. NCI Lifetime model risk: 3.9%. Prior Study Comparison: 12/13/1997 Bilateral Diagnostic Mammogram, [facility]. 11/11/2005 Right Diagnostic Mammogram, [facility]. 08/15/2020 Bilateral Screening Mammogram, [facility]. Findings: The lateral section of the breast of the right breast was scanned. There is progressive skin thickening noted currently measuring 7 mm versus 6 mm previously. Extensive edematous tissue again seen. No evidence for focal abscess. Continued appropriate therapeutic intervention recommended on follow-up ultrasound in 3-4 weeks. Overall Assessment: Probably benign, BI-RAD 3 Management: Diagnostic Breast Ultrasound of the right breast in 1 month. A clinical breast exam by your physician is recommended on an annual basis and results should be correlated with mammographic findings. This exam should not preclude additional follow-up of suspicious palpable abnormalities. Results were given to the patient verbally at the time of exam. Electronically signed and approved by: Benjamin Gray M.D. Radiologis
== END | disposition home or self-care (01) ==
LOC: RADMAMWWP 07:49
PROVIDERS: ATTEND Emergency Medicine
DX: R92.8 Other abnormal and inconclusive findings on diagnostic imaging of breast
CPT/HCPCS: 77062; 77066

== ENCOUNTER 2024-05-05 10:03 | Inpatient (IN) | payer MEDICARE, OTHER ==
[2024-05-05 10:50] LABS: ALT 19 U/L (4-34); AST 30 U/L (14-36); African American GFR (CKD) 34 (>60 ml/min/1.73 sqM); Albumin 3.9 g/dL (3.5-5.0); Alkaline Phosphatase 141 U/L (38-126); Anion Gap 3 mmol/L; Calcium 7.9 mg/dL (8.4-10.2); Carbon Dioxide 36 mmol/L (22-30); Chloride 90 mmol/L (98-107); Glucose 298 mg/dL (74-99); Magnesium 2.4 mg/dL (1.6-2.3); Non-African American GFR(CKD) 30 (>60 ml/min/1.73 sqM); Phosphorus 5.3 mg/dL (2.5-4.5); Potassium 4.2 mmol/L (3.5-5.1); Sodium 129 mmol/L (137-145); Total Bilirubin 0.4 mg/dL (0.2-1.3); Total Protein 6.1 g/dL (6.3-8.2)
[2024-05-05 10:51] LABS: Basophils % (A) 0 %; Eosinophils # (A) 0.2 k/uL (0-0.7); Eosinophils % (A) 3 %; HCT 32.3 % (34.0-46.0); HGB 10.4 gm/dL (11.4-16.0); Lymphocytes # (A) 0.9 k/uL (1.0-4.8); Lymphocytes % (A) 11 %; MCH 27.8 pg (25.0-35.0); MCV 86.8 fL (80.0-100.0); Mean Platelet Volume 10.4; Monocytes # (A) 0.4 k/uL (0-1.0); Monocytes % (A) 5 %; Neutrophils # (A) 6.2 k/uL (1.3-7.7); Neutrophils % (A) 80 %; Platelet Count 169 k/uL (150-450); RBC 3.73 m/uL (3.80-5.40); RDW 14.8 % (11.5-15.5); WBC 7.8 k/uL (3.8-10.6)
[2024-05-05 10:53] LABS: Blood Urea Nitrogen 109 mg/dL (7-17)
--- NOTE | 2024-05-05 10:53 | ED ---
General Adult HPI - General Chief complaint: Recheck/Abnormal Lab/Rx Stated complaint: Weakness Time Seen by Provider: 05/05/24 10:10 Source: patient, EMS, RN notes reviewed Mode of arrival: EMS Limitations: no limitations - History of Present Illness Initial comments: 74-year-old female [facility] emergency [facility] for [facility]. Patient reportedly had an elevated kidney function. Patient has no complaints currently denies any significant nausea vomit diarrhea constipation. Patient states she is chronic pain issues but nothing out of the usual no recent fevers no decreased oral intake. Denies any new medications. - Related Data Home Medications Medication Instructions Recorded Confirmed Atorvastatin [Lipitor] 40 mg PO HS 11/13/17 05/05/24 ARIPiprazole [Abilify] 10 mg PO DAILY 07/22/21 05/05/24 Mirabegron [Myrbetriq] 25 mg PO DAILY 07/22/21 05/05/24 traZODone HCL 150 mg PO HS 07/22/21 05/05/24 allopurinoL [Zyloprim] 100 mg PO DAILY 01/26/22 05/05/24 Oxybutynin ER [Ditropan XL] 15 mg PO DAILY 06/01/23 05/05/24 Empagliflozin [Jardiance] 10 mg PO DAILY 01/05/24 05/05/24 amLODIPine [Norvasc] 5 mg PO DAILY 01/05/24 05/05/24 Pantoprazole Sodium [Protonix] 20 mg PO DAILY 01/28/24 05/05/24 Acetaminophen Tab [Tylenol] 650 mg PO Q6H PRN 05/05/24 05/05/24 Calcium Carbonate 1,000 mg PO Q12H PRN 05/05/24 05/05/24 Fluticasone Nasal [place] [Flonase 1 spray EA NOSTRIL DAILY 05/05/24 05/05/24 Nasal [place]] Furosemide [Lasix] 40 mg PO DIRECTED 05/05/24 05/05/24 Furosemide [Lasix] 80 mg PO DIRECTED 05/05/24 05/05/24 HYDROcodone/APAP 5-325MG [[place] 1 tab PO Q6H PRN 05/05/24 05/05/24 5-325] Insulin Glargine,Hum.rec.anlog 60 units SQ HS 05/05/24 05/05/24 [Lantus Solostar Pen] Insulin Lispro [humaLOG Kwikpen] See Protocol SQ AC-TID 05/05/24 05/05/24 Loratadine [Claritin] 10 mg PO DAILY 05/05/24 05/05/24 Miconazole Nitrate 2% Powder 1 applic TOPICAL BID 05/05/24 05/05/24 Omeprazole [PriLOSEC] 40 mg PO DAILY 05/05/24 05/05/24 Potassium Chloride [Klor-Con M20] 20 meq PO DIRECTED 05/05/24 05/05/24 Sodium Chloride [Saline Nasal Mist] 1 spray EA NOSTRIL Q8H 05/05/24 05/05/24 metOLazone [Zaroxolyn] 5 mg PO DIRECTED 05/05/24 05/05/24 Previous Rx's Medication Instructions Recorded Metoprolol Tartrate [Lopressor] 25 mg PO BID #0 06/18/23 DULoxetine HCL [Cymbalta] 60 mg PO DAILY #0 02/02/24 Allergies Allergy/AdvReac Type Severity Reaction Status Date / Time cephalexin monohydrate Allergy Rash/Hives/ Verified 05/05/24 12:51 [From Keflex] Itching/Swe lling Review of Systems ROS Statement: Those systems with pertinent positive or pertinent negative responses have been documented in the HPI. ROS Other: All systems not noted in ROS Statement are negative. Past Medical History Past Medical History: Asthma, Coronary Artery Disease (CAD), Cancer, Chest Pain / Angina, COPD, Diabetes Mellitus, Deep Vein Thrombosis (DVT), GERD/Reflux, Hyperlipidemia, Hypertension, Myocardial Infarction (AL), Osteoarthritis (OA), Renal Disease Additional Past Medical History / Comment(s): mentally incapacitated per guardian, morbid obesity, Chronic kidney disease stage IV, chronic bronchitis, lobectomy for lung cancer, abdominal wall hernia R side, generalized weakness, gait dysfunction, falls, DJD T12 and L1, urine incontinence at times. The patient lives w/her guardian Marianela Syed who is new to this role so wasn't able to confirm health hx., gets bubble pack of meds set up by Visiting Physician- takes own meds per guardian Last Myocardial Infarction Date:: 01/20/09 History of Any Multi-Drug Resistant Organisms: VRE Date of last positivie culture/infection: 11/13/17 MDRO Source:: VRE URINE Past Surgical History: Section, Heart Catheterization, Heart Catheteriz ation With Stent, Orthopedic Surgery Additional Past Surgical History / Comment(s): Lung lobectomy, ORIF RIGHT ULNA/RADIUS, left rotator cuff repair, cataract removals, heel surgery r/t infection (laterality unknown), colonoscopies/ benign polypectomy, PCI/ stent x2, guardian unable to confirm Past Anesthesia/Blood Transfusion Reactions: No Reported Reaction Date of Last Stent Placement:: 11/2016 Past Psychological History: Anxiety, Bipolar, Depression Smoking Status: Never smoker Past Alcohol Use History: None Reported Past Drug Use History: None Reported - Past Family History Brother(s) Family Medical History: Cancer General Exam Limitations: no limitations General appearance: alert, in no apparent distress Head exam: Present: atraumatic, normocephalic, normal inspection Neck exam: Present: normal inspection, full ROM. Absent: tenderness, meningismus, lymphadenopathy Respiratory exam: Present: normal lung sounds bilaterally. Absent: respiratory distress, wheezes, rales, rhonchi, stridor Cardiovascular Exam: Present: regular rate, normal rhythm, normal heart sounds. Absent: systolic murmur, diastolic murmur, rubs, gallop, clicks GI/Abdominal exam: Present: soft, normal bowel sounds. Absent: distended, tenderness, guarding, rebound, rigid Course Vital Signs 05/05/24 05/05/24 05/05/24 10:09 10:12 10:23 Temperature 98.5 F Pulse Rate 69 67 Respiratory 20 20 20 Rate Blood Pressure 112/56 112/56 O2 Sat by Pulse 98 98 Oximetry 05/05/24 11:12 Temperature Pulse Rate 65 Respiratory 20 Rate Blood Pressure 119/50 O2 Sat by Pulse 96 Oximetry Medical Decision Making - Medical Decision Making Was pt. sent in by a medical professional or institution (, PA, T[employer]ER, urgent care, hospital, or [facility]...) When possible be specific @ -[facility] Did you speak to anyone other than the patient for history (EMS, parent, family, police, friend...)? What history was obtained from this source @ -No Did you review nursing and triage notes (agree or disagree)? Why? @ -I reviewed and agree with nursing and triage notes Were old charts reviewed (outside hosp., previous admission, EMS record, old EKG, old radiological studies, urgent care reports/EKG's, [facility] records)? Report findings @ -No old charts were reviewed Differential Diagnosis (chest pain, altered mental status, abdominal pain women, abdominal pain men, vaginal bleeding, weakness, fever, dyspnea, syncope, headache, dizziness, GI bleed, back pain, seizure, CVA, palpatations, mental health, musculoskeletal)? @ -Differential Weakness: Hypoglycemia, shock, sepsis, hyponatremia, anemia, infection, AL, ETOH, adverse medicine reaction, overdose, stroke, this is not meant to be an all-inclusive list. EKG interpreted by me (3pts min.). @ -None X-rays interpreted by me (1pt min.). @ -None done CT interpreted by me (1pt min.). @ -None done U/S interpreted by me (1pt. min.). @ -None done What testing was considered but not performed or refused? (CT, X-rays, U/S, labs)? Why? @ -None What meds were considered but not given or refused? Why? @ -None Did you discuss the management of the patient with other professionals (professionals i.e. , PA, T[employer]ING [employer]ACHINE [employer]ER, lab, RT, psych nurse, social service assistant, entertainment lawyer, teacher, sergeant of officers, clinical case manager)? Give summary @ -Dr. Dr. Jackson for admission Was smoking cessation discussed for >3mins.? @ -No Was critical care preformed (if so, how long)? @ -No Were there social determinants of health that impacted care today? How? (Homelessness, low income, unemployed, alcoholism, drug addiction, transpor tation, low edu. Level, literacy, decrease access to med. care, longterm, rehab)? @ -No Was there de-escalation of care discussed even if they declined (Discuss DNR or withdrawal of care, Hospice)? DNR status @ -No What co-morbidities impacted this encounter? (DM, HTN, Smoking, COPD, CAD, Cancer, CVA, ARF, Chemo, Hep., AIDS, mental health diagnosis, sleep apnea, morbid obesity)? @ -None Was patient admitted / discharged? Hospital course, mention meds given and route, prescriptions, significant lab abnormalities, going to OR and other pertinent info. @ -Admitted patient sent in for acute kidney injury, elevated BUN. Patient was started on maintenance fluids, gentle hydration with close monitoring repeat laboratory studies. Undiagnosed new problem with uncertain prognosis? @ -No Drug Therapy requiring intensive monitoring for toxicity (Heparin, Nitro, Insulin, Cardizem)? @ -No Were any procedures done? @ -No Diagnosis/symptom? @ -Acute kidney injury Acute, or Chronic, or Acute on Chronic? @ -Acute Uncomplicated (without systemic symptoms) or Complicated (systemic symptoms)? @ -Uncomplicated Side effects of treatment? @ -No Exacerbation, Progression, or Severe Exacerbation? @ -No Poses a threat to life or bodily function? How? (Chest pain, [place], AL, pneumonia, PE, COPD, DKA, ARF, appy, cholecystitis, CVA, Diverticulitis, Homicidal, Suicidal, threat to staff... and all critical care pts) @ -No - Lab Data Result diagrams: 05/05/24 10:19 05/05/24 10:19 Lab Results 05/05/24 05/05/24 05/05/24 Range/Units 10:19 10:19 10:23 WBC 7.8 (3.8-10.6) k/uL RBC 3.73 L (3.80-5.40) m/uL Hgb 10.4 L (11.4-16.0) gm/dL Hct 32.3 L (34.0-46.0) % MCV 86.8 (80.0-100.0) fL MCH 27.8 (25.0-35.0) pg MCHC 32.0 (31.0-37.0) g/dL RDW 14.8 (11.5-15.5) % Plt Count 169 (150-450) k/uL MPV 10.4 Neutrophils % 80 % Lymphocytes % 11 % Monocytes % 5 % Eosinophils % 3 % Basophils % 0 % Neutrophils # 6.2 (1.3-7.7) k/uL Lymphocytes # 0.9 L (1.0-4.8) k/uL Monocytes # 0.4 (0-1.0) k/uL Eosinophils # 0.2 (0-0.7) k/uL Basophils # 0.0 (0-0.2) k/uL Sodium 129 L (137-145) mmol/L Potassium 4.2 (3.5-5.1) mmol/L Chloride 90 L (98-107) mmol/L Carbon Dioxide 36 H (22-30) mmol/L Anion Gap 3 mmol/L BUN 109 H* (7-17) mg/dL Creatinine 1.67 H (0.52-1.04) mg/dL Est GFR (CKD-EPI)AfAm 34 (>60 ml/min/1.73 sqM) Est GFR (CKD-EPI)NonAf 30 (>60 ml/min/1.73 sqM) Glucose 298 H (74-99) mg/dL Calcium 7.9 L (8.4-10.2) mg/dL Phosphorus 5.3 H (2.5-4.5) mg/dL Magnesium 2.4 H (1.6-2.3) mg/dL Total Bilirubin 0.4 (0.2-1.3) mg/dL AST 30 (14-36) U/L ALT 19 (4-34) U/L Alkaline Phosphatase 141 H (38-126) U/L Total Protein 6.1 L (6.3-8.2) g/dL Albumin 3.9 (3.5-5.0) g/dL Urine Color Colorless Urine Appearance Clear (Clear) Urine pH 6.0 (5.0-8.0) Ur Specific [place] 1.011 (1.001-1.035) Urine Protein Negative (Negative) Urine Glucose (UA) 4+ H (Negative) Urine Ketones Negative (Negative) Urine Blood Negative (Negative) Urine Nitrite Negative (Negative) Urine Bilirubin Negative (Negative) Urine Urobilinogen <2.0 (<2.0) mg/dL Ur Leukocyte Esterase Moderate H (Negative) Urine WBC 10 H (0-5) /hpf Urine Bacteria Rare H (None) /hpf Hyaline Casts 1 (0-2) /lpf Disposition Clinical Impression: Dehydration, FELIPA (acute kidney injury) Disposition: ADMITTED IP TO THIS HOSP Condition: Fair Time of Disposition: 11:54
[2024-05-05 11:54] LABS: Appearance,Urine Clear (Clear); Bacteria,Urine Rare /hpf; Bilirubin,Urine Negative (Negative); Blood,Urine Negative (Negative); Color,Urine Colorless; Glucose,Urine (UA) 4+ (Negative); Hyaline Casts,Urine 1 /lpf (0-2); Ketones,Urine Negative (Negative); Leukocyte Esterase,Urine Moderate (Negative); Nitrite,Urine Negative (Negative); Protein,Urine Negative (Negative); Specific Gravity,Urine 1.011 (1.001-1.035); Urobilinogen,Urine <2.0 mg/dL (<2.0); WBC,Urine 10 /hpf (0-5)
[2024-05-05] MEDS ORDERED: NALOXONE 0.4 MG/ML 1 ML VIAL IV PRN (11:54)
[2024-05-05] MEDS: SODIUM CHLORIDE 0.9% 500 ML 500 ML IV ONE (12:41)
[2024-05-05] MEDS: SODIUM CHLORIDE 0.9% 1,000 ML IV SCH (12:41)
[2024-05-05] MEDS: ACETAMINOPHEN TAB 325 MG TAB PO PRN (14:18)
[2024-05-05] MEDS ORDERED: SODIUM CHLORIDE 0.65% NASAL SPRAY 44 ML BTL NASAL SCH (16:00)
[2024-05-05] MEDS: HYDROcodone/APAP 5-325MG 1 EACH TAB PO PRN (17:07)
[2024-05-05] MEDS ORDERED: DEXTROSE 50% SYRINGE 50 ML IVP PRN ×2 (17:22)
--- NOTE | 2024-05-05 17:26 | P.HPIM ---
History of Present Illness H&P Date: 05/05/24 Chief Complaint: Abnormal kidney function This is a 74-year-old patient, follows with visiting physicians Dr. Waller. Baseline on a wheelchair r. Legal guardian is Marianela Syed Currently resident of [facility]. Patient was brought in by the EMS after the staff noticed that patient is increasingly weakness. Decreased mobility. And worsening renal failure. She was here in the ER yesterday 2. Patient states she has baseline short of breath. Had baseline chronic pain. She thinks her appetite is fair. Review of systems: GEN.: Tired, EYES: None HEENT: Decreased hearing NECK: None RESPIRATORY: As above CARDIOVASCULAR: Chest pain] GASTROINTESTINAL: As above GENITOURINARY: Incontinent MUSCULOSKELETAL: Chronic joint pains LYMPHATICS: None HEMATOLOGICAL: None PSYCHIATRY: None NEUROLOGICAL: Pretty much on a wheelchair Past medical history to include: Depression, hyperlipidemia, urinary stress incontinence, diabetes mellitus type 2, CAD, COPD, DVT, GERD, hyperlipidemia, mentally incapacitated, chronic kidney disease stage IV, right lobectomy for lung cancer, abdominal wall hernia, Social history: Legal guardian Marianela Syed. Past history of alcohol dependence. Currently at [facility] Physical examination: VITAL SIGNS: 97.9, 80, 22, 125 x 51, 98% on 5 L GENERAL: Resting in bed EYES: Pupils equal. Conjunctiva normal. HEENT: External appearance of nose and ears normal, oral cavity dry mucous. Hard of hearing NECK: JVD possibly raised; masses not palpable. HEART: First and second heart sounds are normal; edema decreased LUNGS: Respiratory rate increased; decreased breath sounds. ABDOMEN: Soft, non-abdominal tenderness, no guarding rigidity abdominal wall hernia nontender, liver spleen not palpable, no masses palpable. PSYCH: Awake, answering questions MUSCULOSKELETAL:No Clubbing/cyanosis;muscles-grossly intact. OA NEUROLOGICAL: Cranial nerves grossly intact; no facial asymmetry, INVESTIGATIONS, reviewed in the clinical context: April 29: White count 7.8 hemoglobin 10.4 platelets 169 sodium 129 potassium 4.2 BUN 109 creatinine 1.67 glucose 298 Previous labs: April 06, 2024: BUN 52 creatinine 1.18 Assessment and plan: -Acute kidney injury probably ATN, from diuretics. Patient does take Zaroxolyn, Lasix, at home Temporarily hold of diuretics. Gentle hydration. Careful given history of CHF. -Chronic congestive heart failure exacerbation from diastolic dysfunction. EF 55-60%.: Hold diuretics for now -Gallstones, asymptomatic -Mild hyponatremia, from diuretics -Morbid obesity BMI 62.5 Weight loss measures -Chronic kidney disease stage III nephrosclerosis Creatinine was 1.18 on April 06 -Metabolic alkalosis from volume contraction -Hard of hearing -Diabetes mellitus type 2 on insulin, uncontrolled with hyperglycemia Levemir t60 units at night. Accu-Cheks -Depression and anxiety Abilify 10 mg a day. Cymbalta-60 mg daily -Essential hypertension, Norvasc Lopressor 25 mg twice a day. -Hyperuricemia Allopurinol 100 mg a day -GERD Protonix 20 mg daily -Chronic urinary stress incontinence Oxybutynin 15 mg a day, Myrbetriq 25 mg a day Has a pure wick placed here -Chronic arthritis with pain [place] 10 1 tablet every 6 when necessary -Chronic hard of hearing -Chronic medical debility. At her baseline uses a walker -Legal guardian: Marianela Syed Care was discussed with the patient. Past Medical History Past Medical History: Asthma, Coronary Artery Disease (CAD), Cancer, Chest Pain / Angina, COPD, Diabetes Mellitus, Deep Vein Thrombosis (DVT), GERD/Reflux, Hyperlipidemia, Hypertension, Myocardial Infarction ([place]), Osteoarthritis (OA), Renal Disease Additional Past Medical History / Comment(s): mentally incapacitated per guardian, morbid obesity, Chronic kidney disease stage IV, chronic bronchitis, lobectomy for lung cancer, abdominal wall hernia R side, generalized weakness, gait dysfunction, falls, DJD T12 and L1, urine incontinence at times. The patient lives w/her guardian Marianela Syed who is new to this role so wasn't able to confirm health hx., gets bubble pack of meds set up by Visiting Physician- takes own meds per guardian Last Myocardial Infarction Date:: 01/20/09 History of Any Multi-Drug Resistant Organisms: VRE Date of last positivie culture/infection: 11/13/17 MDRO Source:: VRE URINE Past Surgical History: Section, Heart Catheterization, Heart Catheterization With Stent, Orthopedic Surgery Additional Past Surgical History / Comment(s): Lung lobectomy, ORIF RIGHT ULNA/RADIUS, left rotator cuff repair, cataract removals, heel surgery r/t infection (laterality unknown), colonoscopies/ benign polypectomy, PCI/ stent x2, guardian unable to confirm Past Anesthesia/Blood Transfusion Reactions: No Reported Reaction Date of Last Stent Placement:: 11/2016 Past Psychological History: Anxiety, Bipolar, Depression Smoking Status: Never smoker Past Alcohol Use History: None Reported Past Drug Use History: None Reported - Past Family History Brother(s) Family Medical History: Cancer Medications and Allergies Home Medications Medication Instructions Recorded Confirmed Type Atorvastatin [Lipitor] 40 mg PO HS 11/13/17 05/05/24 History ARIPiprazole [Abilify] 10 mg PO DAILY 07/22/21 05/05/24 History Mirabegron [Myrbetriq] 25 mg PO DAILY 07/22/21 05/05/24 History traZODone HCL 150 mg PO HS 07/22/21 05/05/24 History allopurinoL [Zyloprim] 100 mg PO DAILY 01/26/22 05/05/24 History Oxybutynin ER [Ditropan XL] 15 mg PO DAILY 06/01/23 05/05/24 History Metoprolol Tartrate [Lopressor] 25 mg PO BID #0 06/18/23 05/05/24 Rx Empagliflozin [Jardiance] 10 mg PO DAILY 01/05/24 05/05/24 History amLODIPine [Norvasc] 5 mg PO DAILY 01/05/24 05/05/24 History Pantoprazole Sodium [Protonix] 20 mg PO DAILY 01/28/24 05/05/24 History DULoxetine HCL [Cymbalta] 60 mg PO DAILY #0 02/02/24 05/05/24 Rx Acetaminophen Tab [Tylenol] 650 mg PO Q6H PRN 05/05/24 05/05/24 History Calcium Carbonate 1,000 mg PO Q12H PRN 05/05/24 05/05/24 History Fluticasone Nasal [place] [Flonase 1 spray EA NOSTRIL DAILY 05/05/24 05/05/24 H istory Nasal [place]] Furosemide [Lasix] 40 mg PO DIRECTED 05/05/24 05/05/24 History Furosemide [Lasix] 80 mg PO DIRECTED 05/05/24 05/05/24 History HYDROcodone/APAP 5-325MG [[place] 1 tab PO Q6H PRN 05/05/24 05/05/24 History 5-325] Insulin Glargine,Hum.rec.anlog 60 units SQ HS 05/05/24 05/05/24 History [Lantus Solostar Pen] Insulin Lispro [humaLOG Kwikpen] See Protocol SQ AC-TID 05/05/24 05/05/24 History Loratadine [Claritin] 10 mg PO DAILY 05/05/24 05/05/24 History Miconazole Nitrate 2% Powder 1 applic TOPICAL BID 05/05/24 05/05/24 History Omeprazole [PriLOSEC] 40 mg PO DAILY 05/05/24 05/05/24 History Potassium Chloride [Klor-Con M20] 20 meq PO DIRECTED 05/05/24 05/05/24 History Sodium Chloride [Saline Nasal Mist] 1 spray EA NOSTRIL Q8H 05/05/24 05/05/24 History metOLazone [Zaroxolyn] 5 mg PO DIRECTED 05/05/24 05/05/24 History Allergies Allergy/AdvReac Type Severity Reaction Status Date / Time cephalexin monohydrate Allergy Rash/Hives/ Verified 05/05/24 12:51 [From Keflex] Itching/Swe lling Physical Exam Vitals: Vital Signs Temp Pulse Resp BP Pulse Ox 05/05/24 16:19 97.9 F 80 22 125/51 98 05/05/24 11:12 65 20 119/50 96 05/05/24 10:23 20 05/05/24 10:12 67 20 112/56 98 05/05/24 10:09 98.5 F 69 20 112/56 98 Intake and Output 05/05/24 05/05/24 05/05/24 06:59 14:59 22:59 Other: Weight 131.088 kg Results CBC & Chem 7: 05/05/24 10:19 05/05/24 10:19 Labs: Abnormal Lab Results - Last 24 Hours (Table) 05/05/24 05/05/24 05/05/24 Range/Units 10:19 10:19 10:23 RBC 3.73 L (3.80-5.40) m/uL Hgb 10.4 L (11.4-16.0) gm/dL Hct 32.3 L (34.0-46.0) % Lymphocytes # 0.9 L (1.0-4.8) k/uL Sodium 129 L (137-145) mmol/L Chloride 90 L (98-107) mmol/L Carbon Dioxide 36 H (22-30) mmol/L BUN 109 H* (7-17) mg/dL Creatinine 1.67 H (0.52-1.04) mg/dL Glucose 298 H (74-99) mg/dL Calcium 7.9 L (8.4-10.2) mg/dL Phosphorus 5.3 H (2.5-4.5) mg/dL Magnesium 2.4 H (1.6-2.3) mg/dL Alkaline Phosphatase 141 H (38-126) U/L Total Protein 6.1 L (6.3-8.2) g/dL Urine Glucose (UA) 4+ H (Negative) Ur Leukocyte Esterase Moderate H (Negative) Urine WBC 10 H (0-5) /hpf Urine Bacteria Rare H (None) /hpf
[2024-05-05] MEDS: ENOXAPARIN 40 MG/0.4 ML SYRINGE SQ SCH (18:05)
[2024-05-05] MEDS: INSULIN ASPART (NovoLOG) 100 UNIT/ML VIAL SQ SCH (18:05)
[2024-05-05] MEDS: SODIUM CHLORIDE 0.65% NASAL SPRAY 44 ML BTL INTRANASAL SCH (18:35)
[2024-05-05] MEDS ORDERED: INSULIN DETEMIR (LEVEMIR) 100 UNIT/ML SYR SQ SCH (21:00)
[2024-05-05] MEDS: ATORVASTATIN 40 MG TAB PO SCH (21:26)
[2024-05-05] MEDS: METOPROLOL TARTRATE 25 MG TAB PO SCH (21:26)
[2024-05-05] MEDS: INSULIN DETEMIR (LEVEMIR) 100 UNIT/ML SYR SQ SCH (21:26)
[2024-05-05] MEDS: traZODone HCL 50 MG TAB PO SCH (21:26)
[2024-05-06] MEDS: PANTOPRAZOLE 40 MG TABLET PO SCH (06:05)
[2024-05-06] MEDS: allopurinoL 100 MG TAB PO SCH (08:10)
[2024-05-06] MEDS: DAPAGLIFLOZIN PROPANEDIOL 5 MG TABLET PO SCH (08:10)
[2024-05-06] MEDS: ARIPiprazole 10 MG TAB PO SCH (08:10)
[2024-05-06] MEDS: OXYBUTYNIN 15 MG TAB.ER.24 PO SCH (08:10)
[2024-05-06] MEDS: DULoxetine HCL 60 MG CAPSULE.DR PO SCH (08:10)
[2024-05-06] MEDS: amLODIPine 5 MG TAB PO SCH (08:10)
[2024-05-06] MEDS ORDERED: LORATADINE 10 MG TAB PO SCH (09:00)
[2024-05-06] MEDS ORDERED: NON FORMULARY DRUG (Pantoprazole Sodium [Protonix] 20 MG Tablet) PO SCH (09:00)
[2024-05-06] MEDS: SODIUM CHLORIDE 0.65% NASAL SPRAY 44 ML BTL INTRANASAL SCH (12:41)
[2024-05-06 13:49] LABS: African American GFR (CKD) 44 (>60 ml/min/1.73 sqM); Anion Gap 5 mmol/L; Blood Urea Nitrogen 89 mg/dL (7-17); Calcium 7.3 mg/dL (8.4-10.2); Carbon Dioxide 30 mmol/L (22-30); Chloride 89 mmol/L (98-107); Glucose 129 mg/dL (74-99); Non-African American GFR(CKD) 38 (>60 ml/min/1.73 sqM); Sodium 124 mmol/L (137-145)
--- NOTE | 2024-05-06 16:08 | P.PN ---
Progress Note - Text Progress Note Date: 05/06/24 Chief Complaint: Abnormal kidney function This is a 74-year-old patient, follows with visiting physicians Dr. Waller. Baseline on a wheelchair r. Legal guardian is Marianela Syed Currently resident of [facility]. Patient was brought in by the EMS after the staff noticed that patient is increasingly weakness. Decreased mobility. And worsening renal failure. She was here in the ER yesterday 2. Patient states she has baseline short of breath. Had baseline chronic pain. She thinks her appetite is fair. May 06: She has been kept off diuretics. Getting IV fluids. Some improvement in BUN/creatinine. Good urine output. Review of systems: GEN.: Tired, EYES: None HEENT: Decreased hearing NECK: None RESPIRATORY: As above CARDIOVASCULAR: Chest pain] GASTROINTESTINAL: As above GENITOURINARY: Incontinent MUSCULOSKELETAL: Chronic joint pains LYMPHATICS: None HEMATOLOGICAL: None PSYCHIATRY: None NEUROLOGICAL: Pretty much on a wheelchair Past medical history to include: Depression, hyperlipidemia, urinary stress incontinence, diabetes mellitus type 2, CAD, COPD, DVT, GERD, hyperlipidemia, mentally incapacitated, chronic kidney disease stage IV, right lobectomy for lung cancer, abdominal wall hernia, Social history: Legal guardian Marianela Syed. Past history of alcohol dependence. Currently at [facility] Physical examination: VITAL SIGNS: 97.4, 67, 18, 132 x 75, 99% on 3 L GENERAL: Resting in bed, comfortable EYES: Pupils equal. Conjunctiva normal. HEENT: External appearance of nose and ears normal, oral cavity dry mucous. Hard of hearing NECK: JVD possibly raised; masses not palpable. HEART: First and second heart sounds are normal; edema decreased LUNGS: Respiratory rate increased; decreased breath sounds. ABDOMEN: Soft, non-abdominal tenderness, no guarding rigidity abdominal wall hernia nontender, liver spleen not palpable, no masses palpable. PSYCH: Awake, answering questions MUSCULOSKELETAL:No Clubbing/cyanosis;muscles-grossly intact. OA NEUROLOGICAL: Cranial nerves grossly intact; no facial asymmetry, INVESTIGATIONS, reviewed in the clinical context: May 06: Potassium 4 creatinine 1.36 May 05: White count 7.8 hemoglobin 10.4 platelets 169 sodium 129 potassium 4.2 BUN 109 creatinine 1.67 glucose 298 Previous labs: April 06, 2024: BUN 52 creatinine 1.18 Assessment and plan: -Acute kidney injury probably ATN, from diuretics. Patient does take Zaroxolyn, Lasix, at home: Some improvement Temporarily hold off diuretics. Gentle hydration. Careful given history of CHF. -Chronic congestive heart failure exacerbation from diastolic dysfunction. EF 55-60%.: Hold diuretics for now -Gallstones, asymptomatic -Mild hyponatremia, from diuretics -Morbid obesity BMI 62.5 Weight loss measures -Chronic kidney disease stage III nephrosclerosis Creatinine was 1.18 on April 06 -Metabolic alkalosis from volume contraction -Hard of hearing -Diabetes mellitus type 2 on insulin, uncontrolled with hyperglycemia Levemir t60 units at night. Accu-Cheks -Depression and anxiety Abilify 10 mg a day. Cymbalta-60 mg daily -Essential hypertension, Norvasc Lopressor 25 mg twice a day. -Hyperuricemia Allopurinol 100 mg a day -GERD Protonix 20 mg daily -Chronic urinary stress incontinence Oxybutynin 15 mg a day, Myrbetriq 25 mg a day Has a pure wick placed here -Chronic arthritis with pain [place] 10 1 tablet every 6 when necessary -Chronic hard of hearing -Chronic medical debility. At her baseline uses a walker -Legal guardian: Marianela Syed Continue IV fluids. Discussed with patient. Past Medical History Past Medical History: Asthma, Coronary Artery Disease (CAD), Cancer, Chest Pain / Angina, COPD, Diabetes Mellitus, Deep Vein Thrombosis (DVT), GERD/Reflux, Hyperlipidemia, Hypertension, Myocardial Infarction ([place]), Osteoarthritis (OA), Renal Disease Additional Past Medical History / Comment(s): mentally incapacitated per guardian, morbid obesity, Chronic kidney disease stage IV, chronic bronchitis, lobectomy for lung cancer, abdominal wall hernia R side, generalized weakness, gait dysfunction, falls, DJD T12 and L1, urine incontinence at times. The patient lives w/her guardian Marianela Syed who is new to this role so wasn't able to confirm health hx., gets bubble pack of meds set up by Visiting Physician- takes own meds per guardian Last Myocardial Infarction Date:: 01/20/09 History of Any Multi-Drug Resistant Organisms: VRE Date of last positivie culture/infection: 11/13/17 MDRO Source:: VRE URINE Past Surgical History: Section, Heart Catheterization, Heart Catheterization With Stent, Orthopedic Surgery Additional Past Surgical History / Comment(s): Lung lobectomy, ORIF RIGHT ULNA/RADIUS, left rotator cuff repair, cataract removals, heel surgery r/t infection (laterality unknown), colonoscopies/ benign polypectomy, PCI/ stent x2, guardian unable to confirm Past Anesthesia/Blood Transfusion Reactions: No Reported Reaction Date of Last Stent Placement:: 11/2016 Past Psychological History: Anxiety, Bipolar, Depression Smoking Status: Never smoker Past Alcohol Use History: None Reported Past Drug Use History: None Reported
[2024-05-07] MEDS: ENOXAPARIN 30 MG/0.3 ML SYRINGE SQ SCH (08:09)
[2024-05-07 14:26] LABS: African American GFR (CKD) 51 (>60 ml/min/1.73 sqM); Anion Gap 6 mmol/L; Blood Urea Nitrogen 70 mg/dL (7-17); Calcium 7.5 mg/dL (8.4-10.2); Carbon Dioxide 27 mmol/L (22-30); Chloride 87 mmol/L (98-107); Glucose 159 mg/dL (74-99); Non-African American GFR(CKD) 44 (>60 ml/min/1.73 sqM); Potassium 4.4 mmol/L (3.5-5.1); Sodium 120 mmol/L (137-145)
[2024-05-07] MEDS: NYSTATIN 100,000 UNIT/GM POWD 15 GM TOPICAL SCH (20:31)
[2024-05-07] MEDS ORDERED: DEXTROSE 50% SYRINGE 50 ML IVP PRN ×2 (22:58)
[2024-05-07] MEDS ORDERED: INSULIN ASPART (NovoLOG) 100 UNIT/ML VIAL SQ SCH (23:00)
--- NOTE | 2024-05-07 23:02 | P.PN ---
Progress Note - Text Progress Note Date: 05/07/24 Chief Complaint: Abnormal kidney function This is a 74-year-old patient, follows with visiting physicians Dr. Waller. Baseline on a wheelchair r. Legal guardian is Marianela Syed Currently resident of [facility] ([place], [place]). Patient was brought in by the EMS after the staff noticed that patient is increasingly weakness. Decreased mobility. And worsening renal failure. She was here in the ER yesterday 2. Patient states she has baseline short of breath. Had baseline chronic pain. She thinks her appetite is fair. May 06: She has been kept off diuretics. Getting IV fluids. Some improvement in BUN/creatinine. Good urine output. May 07: Oral intake fair. Patient remains off diuretics. On IV fluids. Creatinine down to 1.2. Sodium 120. Avoid free water. Fluid restriction.-1500 cc a day avoid free water. Active Medications Acetaminophen (Acetaminophen Tab 325 Mg Tab) 650 mg PO Q6HR PRN PRN Reason: Mild Pain or Fever > 100.5 Last Admin: 05/07/24 20:45 Dose: 650 mg Acetaminophen (Acetaminophen Tab 325 Mg Tab) 650 mg PO Q6H PRN PRN Reason: Pain Hydrocodone Bitart/Acetaminophen (Hydrocodone/Apap 5-325mg 1 Each Tab) 1 each PO Q6H PRN PRN Reason: Pain Last Admin: 05/07/24 18:31 Dose: 1 each Allopurinol (Allopurinol 100 Mg Tab) 100 mg PO DAILY [facility] Last Admin: 05/07/24 08:08 Dose: 100 mg Amlodipine Besylate (Amlodipine 5 Mg Tab) 5 mg PO DAILY [facility] Last Admin: 05/07/24 08:08 Dose: 5 mg Aripiprazole (Aripiprazole 10 Mg Tab) 10 mg PO DAILY [facility] Last Admin: 05/07/24 08:09 Dose: 10 mg Atorvastatin Calcium (Atorvastatin 40 Mg Tab) 40 mg PO HS [facility] Last Admin: 05/07/24 20:30 Dose: 40 mg Dapagliflozin (Dapagliflozin Propanediol 5 Mg Tablet) 5 mg PO DAILY [facility] Last Admin: 05/07/24 08:09 Dose: 5 mg Dextrose/Water (Dextrose 50% Syringe 50 Ml) 25 ml IVP PER PROTOCOL PRN; Pr otocol PRN Reason: Hypoglycemia Dextrose/Water (Dextrose 50% Syringe 50 Ml) 50 ml IVP PER PROTOCOL PRN; Protocol PRN Reason: Hypoglycemia Dextrose/Water (Dextrose 50% Syringe 50 Ml) 25 ml IVP PER PROTOCOL PRN; Protocol PRN Reason: Hypoglycemia Duloxetine HCl (Duloxetine Hcl 60 Mg Capsule.Dr) 60 mg PO DAILY [facility] Last Admin: 05/07/24 08:09 Dose: 60 mg Enoxaparin Sodium (Enoxaparin 30 Mg/0.3 Ml Syringe) 30 mg SQ DAILY [facility] Last Admin: 05/07/24 08:09 Dose: 30 mg Sodium Chloride (Saline 0.9%) 1,000 mls @ 75 mls/hr IV .[id number] [facility] Last Admin: 05/07/24 17:47 Dose: 75 mls/hr Insulin Aspart (Insulin Aspart (Novolog) 100 Unit/Ml Vial) 0 unit SQ AC-TID [facility]; Protocol Last Admin: 05/07/24 17:47 Dose: 3 unit Insulin Detemir (Insulin Detemir (Levemir) 100 Unit/Ml Syr) 50 unit SQ [facility] Last Admin: 05/07/24 20:35 Dose: 50 unit Metoprolol Tartrate (Metoprolol Tartrate 25 Mg Tab) 25 mg PO BID [facility] Last Admin: 05/07/24 20:31 Dose: 25 mg Naloxone HCl (Naloxone 0.4 Mg/Ml 1 Ml Vial) 0.2 mg IV Q2M PRN PRN Reason: Opioid Reversal Mirabegron [ Myrbetriq] 25 Mg Tablet 25 mg PO DAILY [facility] Last Admin: 05/07/24 08:09 Dose: Not Given Nystatin (Nystatin 100,000 Unit/Gm Powd 15 Gm) 1 applic TOPICAL BID [facility]; Protocol Last Admin: 05/07/24 20:31 Dose: 1 applic Oxybutynin Chloride (Oxybutynin 15 Mg Tab.Er.24) 15 mg PO DAILY [facility] Last Admin: 05/07/24 08:08 Dose: 15 mg Pantoprazole Sodium (Pantoprazole 40 Mg Tablet) 40 mg PO DAILY@0730 [facility] Last Admin: 05/07/24 06:44 Dose: 40 mg Sodium Chloride (Sodium Chloride 0.65% Nasal [place] 44 Ml Btl) 1 spray INTRANASAL QID [facility] Last Admin: 05/07/24 20:49 Dose: 1 spray Trazodone HCl (Trazodone Hcl 50 Mg Tab) 150 mg PO [facility] Last Admin: 05/07/24 20:31 Dose: 150 mg Past medical history to include: Depression, hyperlipidemia, urinary stress incontinence, diabetes mellitus type 2, CAD, COPD, DVT, GERD, hyperlipidemia, mentally incapacitated, chronic kidney disease stage IV, right lobectomy for lung cancer, abdominal wall hernia, Social history: Legal guardian Marianela Syed. Past history of alcohol dependence. Currently at [facility] Physical examination: VITAL SIGNS: 98, 76, 20, 121 x 54, 97% on 3 L GENERAL: Resting in bed, comfortable EYES: Pupils equal. Conjunctiva normal. HEENT: External appearance of nose and ears normal, oral cavity dry mucous. Hard of hearing NECK: JVD possibly raised; masses not palpable. HEART: First and second heart sounds are normal; edema decreased LUNGS: Respiratory rate increased; decreased breath sounds. ABDOMEN: Soft, non-abdominal tenderness, no guarding rigidity abdominal wall hernia nontender, liver spleen not palpable, no masses palpable. PSYCH: Awake, answering questions MUSCULOSKELETAL:No Clubbing/cyanosis;muscles-grossly intact. OA NEUROLOGICAL: Cranial nerves grossly intact; no facial asymmetry, INVESTIGATIONS, reviewed in the clinical context: May 07: Potassium 4.4 sodium 120 BUN 70 creatinine 1.20 May 06: Potassium 4 creatinine 1.36 May 05: White count 7.8 hemoglobin 10.4 platelets 169 sodium 129 potassium 4.2 BUN 109 creatinine 1.67 glucose 298 Previous labs: April 06, 2024: BUN 52 creatinine 1.18 Assessment and plan: -Acute kidney injury probably ATN, from diuretics. Patient does take Zaroxolyn, Lasix, at home: Some improvement Temporarily hold off diuretics. Gentle hydration. Careful given history of CHF. -Hyponatremia suspect hypoosmolar, with contribution from patient being on IV diuretics: Worsening Repeat sodium, serum osmolality, urine sodium Avoid free water Fluid restriction 1500 cc a day -Chronic congestive heart failure exacerbation from diastolic dysfunction. EF 55-60%.: Hold diuretics for now -Gallstones, asymptomatic -Morbid obesity BMI 62.5 Weight loss measures -Chronic kidney disease stage III nephrosclerosis Creatinine was 1.18 on April 06 -Metabolic alkalosis from volume contraction -Hard of hearing -Diabetes mellitus type 2 on insulin, uncontrolled with hyperglycemia Levemir t60 units at night. Accu-Cheks -Depression and anxiety Abilify 10 mg a day. Cymbalta-60 mg daily -Essential hypertension, Norvasc Lopressor 25 mg twice a day. -Hyperuricemia Allopurinol 100 mg a day -GERD Protonix 20 mg daily -Chronic urinary stress incontinence Oxybutynin 15 mg a day, Myrbetriq 25 mg a day Has a pure wick placed here -Chronic arthritis with pain [place] 10 1 tablet every 6 when necessary -Chronic hard of hearing -Chronic medical debility. At her baseline uses a walker -Legal guardian: Marianela Syed Past Medical History Past Medical History: Asthma, Coronary Artery Disease (CAD), Cancer, Chest Pain / Angina, COPD, Diabetes Mellitus, Deep Vein Thrombosis (DVT), GERD/Reflux, Hyperlipidemia, Hypertension, Myocardial Infarction ([place]), Osteoarthritis ([place]), Renal Disease Additional Past Medical History / Comment(s): mentally incapacitated per guardian, morbid obesity, Chronic kidney disease stage IV, chronic bronchitis, lobectomy for lung cancer, abdominal wall hernia R side, generalized weakness, gait dysfunction, falls, DJD T12 and L1, urine incontinence at times. The patient lives w/her guardian Marianela Syed who is new to this role so wasn't able to confirm health hx., gets bubble pack of meds set up by Visiting Physician- takes own meds per guardian Last Myocardial Infarction Date:: 01/20/09 History of Any Multi-Drug Resistant Organisms: VRE Date of last positivie culture/infection: 11/13/17 MDRO Source:: VRE URINE Past Surgical History: Section, Heart Catheterization, Heart Catheterization With Stent, Orthopedic Surgery Additional Past Surgical History / Comment(s): Lung lobectomy, ORIF RIGHT ULNA/RADIUS, left rotator cuff repair, cataract removals, heel surgery r/t infection (laterality unknown), colonoscopies/ benign polypectomy, PCI/ stent x2, guardian unable to confirm Past Anesthesia/Blood Transfusion Reactions: No Reported Reaction Date of Last Stent Placement:: 11/2016 Past Psychological History: Anxiety, Bipolar, Depression Smoking Status: Never smoker Past Alcohol Use History: None Reported Past Drug Use History: None Reported
[2024-05-08 06:44] LABS: African American GFR (CKD) 49 (>60 ml/min/1.73 sqM); Anion Gap 4 mmol/L; Blood Urea Nitrogen 64 mg/dL (7-17); Calcium 7.6 mg/dL (8.4-10.2); Carbon Dioxide 26 mmol/L (22-30); Chloride 87 mmol/L (98-107); Glucose 193 mg/dL (74-99); Non-African American GFR(CKD) 43 (>60 ml/min/1.73 sqM); Potassium 4.3 mmol/L (3.5-5.1)
[2024-05-08 06:52] LABS: Sodium 117 mmol/L (137-145)
[2024-05-08] MEDS: FUROSEMIDE 10 MG/ML 4 ML VIAL IV STA (12:02)
--- NOTE | 2024-05-08 13:33 | P.NPCON ---
History of Present Illness - Reason for Consult hyponatremia - History of Present Illness patient is a 74-year-old female who was admitted to the hospital with complaints of increased weakness. Patient also complained of shortness of breath. Currently maintained on IV fluids. serum sodium was 129 on admission and decreased to 117 today. Serum creatinine was 1.67 on admission and decreased to 1.2 for today. Random urine sodium less than 20 complaining of pain in the shoulder Review of Systems as per HPI Past Medical History Past Medical History: Asthma, Coronary Artery Disease (CAD), Cancer, Chest Pain / Angina, COPD, Diabetes Mellitus, Deep Vein Thrombosis (DVT), GERD/Reflux, Hyperlipidemia, Hypertension, Myocardial Infarction ([place]), Osteoarthritis (OA), Renal Disease Additional Past Medical History / Comment(s): mentally incapacitated per guardian, morbid obesity, Chronic kidney disease stage IV, chronic bronchitis, lobectomy for lung cancer, abdominal wall hernia R side, generalized weakness, gait dysfunction, falls, DJD T12 and L1, urine incontinence at times. The patient lives w/her guardian Marianela Syed who is new to this role so wasn't able to confirm health hx., gets bubble pack of meds set up by Visiting Physician- takes own meds per guardian Last Myocardial Infarction Date:: 01/20/09 History of Any Multi-Drug Resistant Organisms: VRE Date of last positivie culture/infection: 11/13/17 MDRO Source:: VRE URINE Past Surgical History: Section, Heart Catheterization, Heart Catheterization With Stent, Orthopedic Surgery Additional Past Surgical History / Comment(s): Lung lobectomy, ORIF RIGHT ULNA/RADIUS, left rotator cuff repair, cataract removals, heel surgery r/t infection (laterality unknown), colonoscopies/ benign polypectomy, PCI/ stent x2, guardian unable to confirm Past Anesthesia/Blood Transfusion Reactions: No Reported Reaction Date of Last Stent Placement:: 11/2016 Past Psychological History: Anxiety, Bipolar, Depression Additional Psychological History / Comment(s): Pt has a legal guardian, Marianela Syed, unable to confirm her past med. hx Smoking Status: Never smoker Past Alcohol Use History: None Reported Additional Past Alcohol Use History / Comment(s): Past medical record stated past alcohol dependence. Past Drug Use History: None Reported Additional Drug Use History / Comment(s): Past marijuana use. - Past Family History Brother(s) Family Medical History: Cancer Medications and Allergies Home Medications Medication Instructions Recorded Confirmed Type Atorvastatin [Lipitor] 40 mg PO HS 11/13/17 05/05/24 History ARIPiprazole [Abilify] 10 mg PO DAILY 07/22/21 05/05/24 History Mirabegron [Myrbetriq] 25 mg PO DAILY 07/22/21 05/05/24 History traZODone HCL 150 mg PO HS 07/22/21 05/05/24 History allopurinoL [Zyloprim] 100 mg PO DAILY 01/26/22 05/05/24 History Oxybutynin ER [Ditropan XL] 15 mg PO DAILY 06/01/23 05/05/24 History Metoprolol Tartrate [Lopressor] 25 mg PO BID #0 06/18/23 05/05/24 Rx Empagliflozin [Jardiance] 10 mg PO DAILY 01/05/24 05/05/24 History amLODIPine [Norvasc] 5 mg PO DAILY 01/05/24 05/05/24 History Pantoprazole Sodium [Protonix] 20 mg PO DAILY 01/28/24 05/05/24 History DULoxetine HCL [Cymbalta] 60 mg PO DAILY #0 02/02/24 05/05/24 Rx Acetaminophen Tab [Tylenol] 650 mg PO Q6H PRN 05/05/24 05/05/24 History Calcium Carbonate 1,000 mg PO Q12H PRN 05/05/24 05/05/24 History Fluticasone Nasal [place] [Flonase 1 spray EA NOSTRIL DAILY 05/05/24 05/05/24 History Nasal [place]] Furosemide [Lasix] 40 mg PO DIRECTED 05/05/24 05/05/24 History Furosemide [Lasix] 80 mg PO DIRECTED 05/05/24 05/05/24 History HYDROcodone/APAP 5-325MG [[place] 1 tab PO Q6H PRN 05/05/24 05/05/24 History 5-325] Insulin Glargine,Hum.rec.anlog 60 units SQ HS 05/05/24 05/05/24 History [Lantus Solostar Pen] Insulin Lispro [humaLOG Kwikpen] See Protocol SQ AC-TID 05/05/24 05/05/24 History Loratadine [Claritin] 10 mg PO DAILY 05/05/24 05/05/24 History Miconazole Nitrate 2% Powder 1 applic TOPICAL BID 05/05/24 05/05/24 History Omeprazole [PriLOSEC] 40 mg PO DAILY 05/05/24 05/05/24 History Potassium Chloride [Klor-Con M20] 20 meq PO DIRECTED 05/05/24 05/05/24 History Sodium Chloride [Saline Nasal Mist] 1 spray EA NOSTRIL Q8H 05/05/24 05/05/24 History metOLazone [Zaroxolyn] 5 mg PO DIRECTED 05/05/24 05/05/24 History Allergies Allergy/AdvReac Type Severity Reaction Status Date / Time cephalexin monohydrate Allergy Rash/Hives/ Verified 05/05/24 12:51 [From Keflex] Itching/Swe lling Physical Exam Vitals: Vital Signs Temp Pulse Resp BP BP Pulse Ox 05/08/24 09:20 57 L 05/08/24 07:00 98.2 F 57 L 22 151/77 99 05/08/24 01:12 97.8 F 62 19 119/57 99 05/07/24 20:23 98.0 F 76 20 121/54 97 05/07/24 15:00 97.9 F 69 17 129/71 98 Intake and Output 05/07/24 05/08/24 05/08/24 22:59 06:59 14:59 Intake Total 118 402 Output Total 1200 1350 Balance -1082 -948 Intake: Oral 118 402 Output: Urine 1200 1350 Other: Voiding Method External Catheter External Catheter patient is awake, comfortable, no acute distress. Examination of the heart S1 and S2 Examination of the lungs decreased breath sounds at the bases Abdomen is soft obese Examination of lower extremity shows edema 1+ bilaterally [employer] SPE[employer] exam grossly intact Results - Lab Results Most recent lab results Calcium 7.6 mg/dL (8.4-10.2) L 05/08/24 04:33 Phosphorus 5.3 mg/dL (2.5-4.5) H 05/05/24 10:19 Magnesium 2.4 mg/dL (1.6-2.3) H 05/05/24 10:19 05/05/24 10:19 05/08/24 04:33 Assessment and Plan Assessment: 1. Hyponatremia, appears hypervolemic. Check urine osmolality. DC IV fluids and repeat sodium this evening. 2. Essential hypertension with blood pressure on the lower side. Maintained on Norvasc and metoprolol. 3. Acute kidney injury, improved with IV hydration. Rule out urine retention. Diuretics currently on hold. 4. History of CHF with diastolic dysfunction 5. Morbid obesity 6. Chronic kidney disease NKF stage IIIa/b with baseline creatinine around 1.3- 1.4 mg/dL 7. Volume overload Plan: DC IV fluids Check bladder scan and rule out urine retention Check chest x-ray 1 IV Lasix Repeat sodium this evening Add urine osmolality Hold Norvasc for now Thank you for the consultation. We will continue to follow the patient with you during her hospitalization.
--- NOTE | 2024-05-08 14:23 | XR ---
EXAMINATION TYPE: XR chest 1V DATE OF EXAM: 05/08/2024 2:18 PM CLINICAL INDICATION: Female, 74 years old with history of chf; [facility] COMPARISON: Chest radiographs from 04/06/2024 TECHNIQUE: XR chest 1V Frontal view of the chest. FINDINGS: Poor penetration of the exam. Lungs/Pleura: No evidence of focal consolidation or pneumothorax. Possi ble blunting of the costophrenic angles. Pulmonary vascularity: Pulmonary vascular congestion. Heart/mediastinum: Cardiomediastinal silhouette is enlarged. Musculoskeletal: No acute osseous pathology. Other findings: None IMPRESSION: No acute cardiopulmonary disease/process. [facility], , 05/08/2024 2:20 PM
--- NOTE | 2024-05-08 19:54 | P.PN ---
Progress Note - Text Progress Note Date: 05/08/24 Chief Complaint: Abnormal kidney function This is a 74-year-old patient, follows with visiting physicians Dr. Waller. Baseline on a wheelchair r. Legal guardian is Marianela Syed Currently resident of [facility]. Patient was brought in by the EMS after the staff noticed that patient is increasingly weakness. Decreased mobility. And worsening renal failure. She was here in the ER yesterday 2. Patient states she has baseline short of breath. Had baseline chronic pain. She thinks her appetite is fair. May 06: She has been kept off diuretics. Getting IV fluids. Some improvement in BUN/creatinine. Good urine output. May 07: Oral intake fair. Patient remains off diuretics. On IV fluids. Creatinine down to 1.2. Sodium 120. Avoid free water. Fluid restriction.-1500 cc a day avoid free water. May 08: Patient sodium is dropped 117. Already on fluid restriction. Nephrology was consulted. IV fluids being discontinued. Received 1 dose of IV Lasix. Amlodipine has been held.-Brought to nurse panel machine setter Kaylan looked at the groin area. Patient has evidence of candidiasis. Nystatin topical powder twice daily added. Active Medications Acetaminophen (Acetaminophen Tab 325 Mg Tab) 650 mg PO Q6HR PRN PRN Reason: Mild Pain or Fever > 100.5 Last Admin: 05/08/24 18:32 Dose: 650 mg Acetaminophen (Acetaminophen Tab 325 Mg Tab) 650 mg PO Q6H PRN PRN Reason: Pain Hydrocodone Bitart/Acetaminophen (Hydrocodone/Apap 5-325mg 1 Each Tab) 1 each PO Q6H PRN PRN Reason: Pain Last Admin: 05/08/24 14:23 Dose: 1 each Allopurinol (Allopurinol 100 Mg Tab) 100 mg PO DAILY [facility] Last Admin: 05/08/24 09:19 Dose: 100 mg Aripiprazole (Aripiprazole 10 Mg Tab) 10 mg PO DAILY [facility] Last Admin: 05/08/24 09:19 Dose: 10 mg Atorvastatin Calcium (Atorvastatin 40 Mg Tab) 40 mg PO HS [facility] Last Admin: 05/07/24 20:30 Dose: 40 mg Carbamide Perox/Anhydrous Glycerin (Carbamide Peroxide 6.5% Drops 15 Ml Btl) 5 drops BOTH EARS BID [facility] Dapagliflozin (Dapagliflozin Propanediol 5 Mg Tablet) 5 mg PO DAILY [facility] Last Admin: 05/08/24 09:19 Dose: 5 mg Dextrose/Water (Dextrose 50% Syringe 50 Ml) 25 ml IVP PER PROTOCOL PRN; Protocol PRN Reason: Hypoglycemia Dextrose/Water (Dextrose 50% Syringe 50 Ml) 50 ml IVP PER PROTOCOL PRN; Protocol PRN Reason: Hypoglycemia Dextrose/Water (Dextrose 50% Syringe 50 Ml) 25 ml IVP PER PROTOCOL PRN; Protocol PRN Reason: Hypoglycemia Duloxetine HCl (Duloxetine Hcl 60 Mg Capsule.Dr) 60 mg PO DAILY [facility] Last Admin: 05/08/24 09:19 Dose: 60 mg Enoxaparin Sodium (Enoxaparin 30 Mg/0.3 Ml Syringe) 30 mg SQ DAILY [facility] Last Admin: 05/08/24 09:18 Dose: 30 mg Sodium Chloride (Saline 0.9%) 1,000 mls @ 75 mls/hr IV .[id number] [facility] Last Admin: 05/08/24 06:18 Dose: Not Given Insulin Aspart (Insulin Aspart (Novolog) 100 Unit/Ml Vial) 0 unit SQ AC-TID [facility]; Protocol Last Admin: 05/08/24 18:30 Dose: 6 unit Insulin Detemir (Insulin Detemir (Levemir) 100 Unit/Ml Syr) 50 unit SQ HS [facility] Last Admin: 05/07/24 20:35 Dose: 50 unit Metoprolol Tartrate (Metoprolol Tartrate 25 Mg Tab) 25 mg PO BID [facility] Last Admin: 05/08/24 09:19 Dose: Not Given Naloxone HCl (Naloxone 0.4 Mg/Ml 1 Ml Vial) 0.2 mg IV Q2M PRN PRN Reason: Opioid Reversal Mirabegron [ Myrbetriq] 25 Mg Tablet 25 mg PO DAILY [facility] Last Admin: 05/08/24 09:19 Dose: Not Given Nystatin (Nystatin 100,000 Unit/Gm Powd 15 Gm) 1 applic TOPICAL BID [facility]; Protocol Last Admin: 05/08/24 12:02 Dose: 1 applic Oxybutynin Chloride (Oxybutynin 15 Mg Tab.Er.24) 15 mg PO DAILY [facility] Last Admin: 05/08/24 09:19 Dose: 15 mg Pantoprazole Sodium (Pantoprazole 40 Mg Tablet) 40 mg PO DAILY@0730 [facility] Last Admin: 05/08/24 06:18 Dose: 40 mg Sodium Chloride (Sodium Chloride 0.65% Nasal [place] 44 Ml Btl) 1 spray INTRANASAL QID [facility] Last Admin: 05/08/24 18:30 Dose: 1 spray Trazodone HCl (Trazodone Hcl 50 Mg Tab) 150 mg PO HS [facility] Last Admin: 05/07/24 20:31 Dose: 150 mg Past medical history to include: Depression, hyperlipidemia, urinary stress incontinence, diabetes mellitus type 2, CAD, COPD, DVT, GERD, hyperlipidemia, mentally incapacitated, chronic kidney disease stage IV, right lobectomy for lung cancer, abdominal wall hernia, Social history: Legal guardian Marianela Syed. Past history of alcohol dependence. Currently at [facility] Physical examination: VITAL SIGNS: 97.9, 80, 22, 152 x 61, 97% on 3 L GENERAL: Resting in bed, comfortable EYES: Pupils equal. Conjunctiva normal. HEENT: External appearance of nose and ears normal, oral cavity dry mucous. Hard of hearing NECK: JVD possibly raised; masses not palpable. HEART: First and second heart sounds are normal; edema decreased LUNGS: Respiratory rate increased; decreased breath sounds. ABDOMEN: Soft, non-abdominal tenderness, no guarding rigidity abdominal wall hernia nontender, liver spleen not palpable, no masses palpable. Pelvic area evidence of candidiasis PSYCH: Awake, answering questions MUSCULOSKELETAL:No Clubbing/cyanosis;muscles-grossly intact. OA NEUROLOGICAL: Cranial nerves grossly intact; no facial asymmetry, INVESTIGATIONS, reviewed in the clinical context: May 08: Potassium 4.3 sodium 117 BUN 64 creatinine 1.24. Urine random sodium less than 20 May 07: Potassium 4.4 sodium 120 BUN 70 creatinine 1.20 May 06: Potassium 4 creatinine 1.36 May 05: White count 7.8 hemoglobin 10.4 platelets 169 sodium 129 potassium 4.2 BUN 109 creatinine 1.67 glucose 298 Previous labs: April 06, 2024: BUN 52 creatinine 1.18 Assessment and plan: -Acute kidney injury probably ATN, from diuretics. Patient does take Zaroxolyn, Lasix, at home: Some improvement Temporarily hold off diuretics. Was hydrated. -Chronic kidney disease, stage III. -Hyponatremia suspect hypoosmolar, with contribution from patient being on IV diuretics: Worsening Repeat sodium, serum osmolality, urine sodium Avoid free water Fluid restriction 1500 cc a day Nephrology consulted-IV fluids stopped. Gave 1 dose of IV Lasix. -Chronic congestive heart failure exacerbation from diastolic dysfunction. EF 55-60%.: Hold diuretics for now -Gallstones, asymptomatic -Morbid obesity BMI 62.5 Weight loss measures -Chronic kidney disease stage III nephrosclerosis Creatinine was 1.18 on April 06 -Metabolic alkalosis from volume contraction -Hard of hearing -Diabetes mellitus type 2 on insulin, uncontrolled with hyperglycemia Levemir t60 units at night. Accu-Cheks -Depression and anxiety Abilify 10 mg a day. Cymbalta-60 mg daily -Essential hypertension, Norvasc Lopressor 25 mg twice a day. -Candidiasis in the perineal area. Nystatin topical powder twice daily -Hyperuricemia Allopurinol 100 mg a day -GERD Protonix 20 mg daily -Chronic urinary stress incontinence Oxybutynin 15 mg a day, Myrbetriq 25 mg a day Has a pure wick placed here -Chronic arthritis with pain [place] 10 1 tablet every 6 when necessary -Chronic hard of hearing -Chronic medical debility. At her baseline uses a walker -Legal guardian: Marianela Syed Discussed with patient. Nephrology consulted. IV fluids discontinued. Follow labs Past Medical History Past Medical History: Asthma, Coronary Artery Disease (CAD), Cancer, Chest Pain / Angina, COPD, Diabetes Mellitus, Deep Vein Thrombosis (DVT), GERD/Reflux, Hyperlipidemia, Hypertension, Myocardial Infarction ([place]), Osteoarthritis ([place]), Renal Disease Additional Past Medical History / Comment(s): mentally incapacitated per guardian, morbid obesity, Chronic kidney disease stage IV, chronic bronchitis, lobectomy for lung cancer, abdominal wall hernia R side, generalized weakness, gait dysfunction, falls, DJD T12 and L1, urine incontinence at times. The patient lives w/her guardian Marianela Syed who is new to this role so wasn't able to confirm health hx., gets bubble pack of meds set up by Visiting Physician- takes own meds per guardian Last Myocardial Infarction Date:: 01/20/09 History of Any Multi-Drug Resistant Organisms: VRE Date of last positivie culture/infection: 11/13/17 MDRO Source:: VRE URINE Past Surgical History: Section, Heart Catheterization, Heart Catheterization With Stent, Orthopedic Surgery Additional Past Surgical History / Comment(s): Lung lobectomy, ORIF RIGHT ULNA/RADIUS, left rotator cuff repair, cataract removals, heel surgery r/t infection (laterality unknown), colonoscopies/ benign polypectomy, PCI/ stent x2, guardian unable to confirm Past Anesthesia/Blood Transfusion Reactions: No Reported Reaction Date of Last Stent Placement:: 11/2016 Past Psychological History: Anxiety, Bipolar, Depression Smoking Status: Never smoker Past Alcohol Use History: None Reported Past Drug Use History: None Reported
[2024-05-08] MEDS: CARBAMIDE PEROXIDE 6.5% DROPS 15 ML BTL BOTH EARS SCH (22:36)
[2024-05-09 12:01] LABS: African American GFR (CKD) 48 (>60 ml/min/1.73 sqM); Anion Gap 2 mmol/L; Blood Urea Nitrogen 70 mg/dL (7-17); Calcium 8.1 mg/dL (8.4-10.2); Carbon Dioxide 30 mmol/L (22-30); Chloride 93 mmol/L (98-107); Glucose 98 mg/dL (74-99); Non-African American GFR(CKD) 42 (>60 ml/min/1.73 sqM); Potassium 4.4 mmol/L (3.5-5.1); Sodium 125 mmol/L (137-145)
--- NOTE | 2024-05-09 14:03 | P.PN ---
Subjective patient is seen for follow-up for hyponatremia, hypervolemic and improved with diuresis and discontinuation of IV fluids. Complaining of shortness of breath and swelling in legs. No acute distress today. Serum sodium at 125 today Objective - Vital Signs Vital signs: Vital Signs Temp 97.9 F 05/09/24 07:00 Pulse 66 05/09/24 08:00 Resp 18 05/09/24 08:00 BP 112/54 05/09/24 07:00 Pulse Ox 95 05/09/24 09:50 FiO2 Intake & Output 05/08/24 05/09/24 05/09/24 18:59 06:59 18:59 Intake Total 478 660 358 Output Total 2200 1500 625 Balance -1722 -840 -267 Intake: Oral 478 660 358 Output: Urine 2200 1500 625 Stool 0 Other: Voiding Method External Catheter - Exam patient is awake, comfortable, no acute distress.obese Examination of the heart S1 and S2 Examination of the lungs decreased breath sounds at the bases Abdomen is soft obese Examination of lower extremity shows edema 1+ bilaterally [employer] exam grossly intact - Labs CBC & Chem 7: 05/05/24 10:19 05/09/24 11:25 Labs: Abnormal Lab Results - Last 24 Hours (Table) 05/08/24 05/08/24 05/09/24 Range/Units 06:00 18:06 11:25 Sodium 122 L 125 L (137-145) mmol/L Chloride 93 L (98-107) mmol/L BUN 70 H (7-17) mg/dL Creatinine 1.26 H (0.52-1.04) mg/dL Calcium 8.1 L (8.4-10.2) mg/dL Urine Osmolality 257 L (400-1100) mOsm/kg Assessment and Plan Assessment: 1. Hyponatremia, hypervolemic. Improved withLasix and discontinuation of IV fluids.. 2. Essential hypertension with blood pressure on the lower side. Maintained on Norvasc and metoprolol. 3. Acute kidney injury, improved with IV hydration. Rule out urine retention. 4. History of CHF with diastolic dysfunction 5. Morbid obesity 6. Chronic kidney disease NKF stage IIIa/b with baseline creatinine around 1.3- 1.4 mg/dL 7. Volume overload Plan: repeat IV Lasix Repeat sodium in a.m. continue off of IV fluids.
--- NOTE | 2024-05-09 16:14 | P.PN ---
Progress Note - Text Progress Note Date: 05/09/24 Chief Complaint: Abnormal kidney function This is a 74-year-old patient, follows with visiting physicians Dr. Waller. Baseline on a wheelchair r. Legal guardian is Marianela Syed Currently resident of [facility]. Patient was brought in by the EMS after the staff noticed that patient is increasingly weakness. Decreased mobility. And worsening renal failure. She was here in the ER yesterday 2. Patient states she has baseline short of breath. Had baseline chronic pain. She thinks her appetite is fair. May 06: She has been kept off diuretics. Getting IV fluids. Some improvement in BUN/creatinine. Good urine output. May 07: Oral intake fair. Patient remains off diuretics. On IV fluids. Creatinine down to 1.2. Sodium 120. Avoid free water. Fluid restriction.-1500 cc a day avoid free water. May 08: Patient sodium is dropped 117. Already on fluid restriction. Nephrology was consulted. IV fluids being discontinued. Received 1 dose of IV Lasix. Amlodipine has been held.-Brought to nurse director community organization Kaylan looked at the groin area. Patient has evidence of candidiasis. Nystatin topical powder twice daily added. May 09: Sodium up to 125. Breathing stable. Remains on fluid restriction. Urine osmolality 257. Urine sodium less than 20. IV Lasix repeated by nephrology today. Delay Active Medications Acetaminophen (Acetaminophen Tab 325 Mg Tab) 650 mg PO Q6HR PRN PRN Reason: Mild Pain or Fever > 100.5 Last Admin: 05/08/24 18:32 Dose: 650 mg Acetaminophen (Acetaminophen Tab 325 Mg Tab) 650 mg PO Q6H PRN PRN Reason: Pain Hydrocodone Bitart/Acetaminophen (Hydrocodone/Apap 5-325mg 1 Each Tab) 1 each PO Q6H PRN PRN Reason: Pain Last Admin: 05/09/24 09:20 Dose: 1 each Allopurinol (Allopurinol 100 Mg Tab) 100 mg PO DAILY [facility] Last Admin: 05/09/24 09:14 Dose: 100 mg Aripiprazole (Aripiprazole 10 Mg Tab) 10 mg PO DAILY [facility] Last Admin: 05/09/24 09:13 Dose: 10 mg Atorvastatin Calcium (Atorvastatin 40 Mg Tab) 40 mg PO HS [facility] Last Admin: 05/08/24 22:35 Dose: 40 mg Carbamide Perox/Anhydrous Glycerin (Carbamide Peroxide 6.5% Drops 15 Ml Btl) 5 drops BOTH EARS BID [facility] Last Admin: 05/09/24 09:14 Dose: 5 drops Dapagliflozin (Dapagliflozin Propanediol 5 Mg Tablet) 5 mg PO DAILY [facility] Last Admin: 05/09/24 09:13 Dose: 5 mg Dextrose/Water (Dextrose 50% Syringe 50 Ml) 25 ml IVP PER PROTOCOL PRN; Protocol PRN Reason: Hypoglycemia Dextrose/Water (Dextrose 50% Syringe 50 Ml) 50 ml IVP PER PROTOCOL PRN; Protocol PRN Reason: Hypoglycemia Dextrose/Water (Dextrose 50% Syringe 50 Ml) 25 ml IVP PER PROTOCOL PRN; Protocol PRN Reason: Hypoglycemia Duloxetine HCl (Duloxetine Hcl 60 Mg Capsule.Dr) 60 mg PO DAILY [facility] Last Admin: 05/09/24 09:13 Dose: 60 mg Enoxaparin Sodium (Enoxaparin 30 Mg/0.3 Ml Syringe) 30 mg SQ DAILY [facility] Last Admin: 05/09/24 09:13 Dose: 30 mg Furosemide (Furosemide 10 Mg/Ml 4 Ml Vial) 40 mg IV Q12HR [facility] Insulin Aspart (Insulin Aspart (Novolog) 100 Unit/Ml Vial) 0 unit SQ AC-TID [facility]; Protocol Last Admin: 05/09/24 16:02 Dose: Not Given Insulin Detemir (Insulin Detemir (Levemir) 100 Unit/Ml Syr) 50 unit SQ HS [facility] Last Admin: 05/08/24 22:36 Dose: 50 unit Metoprolol Tartrate (Metoprolol Tartrate 25 Mg Tab) 25 mg PO BID [facility] Last Admin: 05/09/24 09:14 Dose: 25 mg Naloxone HCl (Naloxone 0.4 Mg/Ml 1 Ml Vial) 0.2 mg IV Q2M PRN PRN Reason: Opioid Reversal Mirabegron [ Myrbetriq] 25 Mg Tablet 25 mg PO DAILY [facility] Last Admin: 05/09/24 10:04 Dose: Not Given Nystatin (Nystatin 100,000 Unit/Gm Powd 15 Gm) 1 applic TOPICAL BID [facility]; Protocol Last Admin: 05/09/24 09:16 Dose: 1 applic Oxybutynin Chloride (Oxybutynin 15 Mg Tab.Er.24) 15 mg PO DAILY [facility] Last Admin: 05/09/24 09:13 Dose: 15 mg Pantoprazole Sodium (Pantoprazole 40 Mg Tablet) 40 mg PO DAILY@0730 [facility] Last Admin: 05/09/24 06:36 Dose: 40 mg Sodium Chloride (Sodium Chloride 0.65% Nasal [place] 44 Ml Btl) 1 spray INTRANASAL QID [facility] Last Admin: 05/09/24 10:04 Dose: 1 spray Trazodone HCl (Trazodone Hcl 50 Mg Tab) 150 mg PO HS [facility] Last Admin: 05/08/24 22:36 Dose: 150 mg Past medical history to include: Depression, hyperlipidemia, urinary stress incontinence, diabetes mellitus type 2, CAD, COPD, DVT, GERD, hyperlipidemia, mentally incapacitated, chronic kidney disease stage IV, right lobectomy for lung cancer, abdominal wall hernia, Social history: Legal guardian Marianela Syed. Past history of alcohol dependence. Currently at [facility] Physical examination: VITAL SIGNS: 97.9, 66, 18, 112 554, 99% on 3 L GENERAL: Resting in bed, comfortable EYES: Pupils equal. Conjunctiva normal. HEENT: External appearance of nose and ears normal, oral cavity dry mucous. Hard of hearing NECK: JVD possibly raised; masses not palpable. HEART: First and second heart sounds are normal; edema decreased LUNGS: Respiratory rate increased; decreased breath sounds. ABDOMEN: Soft, non-abdominal tenderness, no guarding rigidity abdominal wall hernia nontender, liver spleen not palpable, no masses palpable. Pelvic area evidence of candidiasis PSYCH: Awake, answering questions MUSCULOSKELETAL:No Clubbing/cyanosis;muscles-grossly intact. OA NEUROLOGICAL: Cranial nerves grossly intact; no facial asymmetry, INVESTIGATIONS, reviewed in the clinical context: May 09: Potassium 4.4 BUN 70 creatinine 1.26 May 08: Potassium 4.3 sodium 117 BUN 64 creatinine 1.24. Urine random sodium less than 20 May 07: Potassium 4.4 sodium 120 BUN 70 creatinine 1.20 May 06: Potassium 4 creatinine 1.36 May 05: White count 7.8 hemoglobin 10.4 platelets 169 sodium 129 potassium 4.2 BUN 109 creatinine 1.67 glucose 298 Previous labs: April 06, 2024: BUN 52 creatinine 1.18 Assessment and plan: -Acute kidney injury probably ATN, from diuretics. Patient does take Zaroxolyn, Lasix, at home: Some improvement Temporarily hold off diuretics. Was hydrated. -Chronic kidney disease, stage III. -Hyponatremia suspect hypoosmolar,: Some improvement Repeat sodium, serum osmolality, urine sodium Avoid free water Fluid restriction 1500 cc a day Nephrology following-IV Lasix repeated today -Chronic congestive heart failure exacerbation from diastolic dysfunction. EF 55-60%.: Hold diuretics for now -Gallstones, asymptomatic -Morbid obesity BMI 62.5 Weight loss measures -Chronic kidney disease stage III nephrosclerosis Creatinine was 1.18 on April 06 -Metabolic alkalosis from volume contraction -Hard of hearing -Diabetes mellitus type 2 on insulin, uncontrolled with hyperglycemia Levemir t60 units at night. Accu-Cheks -Depression and anxiety Abilify 10 mg a day. Cymbalta-60 mg daily -Essential hypertension, Norvasc Lopressor 25 mg twice a day. -Candidiasis in the perineal area. Nystatin topical powder twice daily -Hyperuricemia Allopurinol 100 mg a day -GERD Protonix 20 mg daily -Chronic urinary stress incontinence Oxybutynin 15 mg a day, Myrbetriq 25 mg a day Has a pure wick placed here -Chronic arthritis with pain [place] 10 1 tablet every 6 when necessary -Chronic hard of hearing -Chronic medical debility. At her baseline uses a walker -Legal guardian: Marianela Syed Continue current treatment plan. Past Medical History Past Medical History: Asthma, Coronary Artery Disease (CAD), Cancer, Chest Pain / Angina, COPD, Diabetes Mellitus, Deep Vein Thrombosis (DVT), GERD/Reflux, Hyperlipidemia, Hypertension, Myocardial Infarction ([place]), Osteoarthritis (OA), Renal Disease Additional Past Medical History / Comment(s): mentally incapacitated per guardian, morbid obesity, Chronic kidney disease stage IV, chronic bronchitis, lobectomy for lung cancer, abdominal wall hernia R side, generalized weakness, gait dysfunction, falls, DJD T12 and L1, urine incontinence at times. The patient lives w/her guardian Marianela Syed who is new to this role so wasn't able to confirm health hx., gets bubble pack of meds set up by Visiting Physician- takes own meds per guardian Last Myocardial Infarction Date:: 01/20/09 History of Any Multi-Drug Resistant Organisms: VRE Date of last positivie culture/infection: 11/13/17 MDRO Source:: VRE URINE Past Surgical History: Section, Heart Catheterization, Heart Cathet erization With Stent, Orthopedic Surgery Additional Past Surgical History / Comment(s): Lung lobectomy, ORIF RIGHT ULNA/RADIUS, left rotator cuff repair, cataract removals, heel surgery r/t infection (laterality unknown), colonoscopies/ benign polypectomy, PCI/ stent x2, guardian unable to confirm Past Anesthesia/Blood Transfusion Reactions: No Reported Reaction Date of Last Stent Placement:: 11/2016 Past Psychological History: Anxiety, Bipolar, Depression Smoking Status: Never smoker Past Alcohol Use History: None Reported Past Drug Use History: None Reported
[2024-05-09] MEDS: FUROSEMIDE 10 MG/ML 4 ML VIAL IV SCH (16:23)
[2024-05-10 05:21] LABS: African American GFR (CKD) 36 (>60 ml/min/1.73 sqM); Anion Gap 6 mmol/L; Blood Urea Nitrogen 74 mg/dL (7-17); Calcium 7.9 mg/dL (8.4-10.2); Carbon Dioxide 31 mmol/L (22-30); Chloride 91 mmol/L (98-107); Glucose 142 mg/dL (74-99); Non-African American GFR(CKD) 32 (>60 ml/min/1.73 sqM); Potassium 4.2 mmol/L (3.5-5.1); Sodium 128 mmol/L (137-145)
[2024-05-10] MEDS ORDERED: metOLazone 5 MG TAB PO SCH (08:30)
[2024-05-10] MEDS ORDERED: FUROSEMIDE 80 MG TAB PO SCH (09:00)
--- NOTE | 2024-05-10 19:31 | P.PN ---
Subjective patient is seen for follow-up for hyponatremia, hypervolemic and improved with diuresis and discontinuation of IV fluids. Shortness of breath has improved. Serum sodium at 128 today. Serum creatinine increased to 1.5. Objective - Vital Signs Vital signs: Vital Signs Temp 98.8 F 05/10/24 13:37 Pulse 52 L 05/10/24 13:37 Resp 18 05/10/24 13:37 BP 106/45 05/10/24 13:37 Pulse Ox 98 05/10/24 14:07 FiO2 Intake & Output 05/10/24 05/10/24 05/11/24 06:59 18:59 06:59 Intake Total 1288 Output Total 2800 1400 Balance -2800 -112 Intake: Oral 1288 Output: Urine 2800 1400 Other: Voiding Method External Catheter # Bowel Movements 1 - Exam patient is awake, comfortable, no acute distress.obese Examination of the heart S1 and S2 Examination of the lungs decreased breath sounds at the bases Abdomen is soft obese Examination of lower extremity shows edema 1+ bilaterally, somewhat improved [employer]POSITE MECH[employer]IC exam grossly intact - Labs CBC & Chem 7: 05/05/24 10:19 05/10/24 04:11 Labs: Abnormal Lab Results - Last 24 Hours (Table) 05/10/24 Range/Units 04:11 Sodium 128 L (137-145) mmol/L Chloride 91 L (98-107) mmol/L Carbon Dioxide 31 H (22-30) mmol/L BUN 74 H (7-17) mg/dL Creatinine 1.59 H (0.52-1.04) mg/dL Glucose 142 H (74-99) mg/dL Calcium 7.9 L (8.4-10.2) mg/dL Assessment and Plan Assessment: 1. Hyponatremia, hypervolemic. Improved withLasix and discontinuation of IV fluids.. 2. Essential hypertension with blood pressure on the lower side. Maintained on Norvasc and metoprolol. 3. Acute kidney injury associated with recent diuresis. Blood pressure also noted to be on the lower side. 4. History of CHF with diastolic dysfunction 5. Morbid obesity 6. Chronic kidney disease NKF stage IIIa/b with baseline creatinine around 1.3- 1.4 mg/dL 7. Volume overload Plan: Decrease Lasix, switch to oral Diamox x 1 Repeat labs in a.m.
[2024-05-10] MEDS: acetaZOLAMIDE 250 MG TAB PO SCH (20:37)
[2024-05-10] MEDS ORDERED: FUROSEMIDE 40 MG TAB PO SCH (21:00)
--- NOTE | 2024-05-10 22:08 | P.PN ---
Progress Note - Text Progress Note Date: 05/10/24 Chief Complaint: Abnormal kidney function This is a 74-year-old patient, follows with visiting physicians Dr. Waller. Baseline on a wheelchair r. Legal guardian is Marianela Syed Currently resident of [facility]. Patient was brought in by the EMS after the staff noticed that patient is increasingly weakness. Decreased mobility. And worsening renal failure. She was here in the ER yesterday 2. Patient states she has baseline short of breath. Had baseline chronic pain. She thinks her appetite is fair. May 06: She has been kept off diuretics. Getting IV fluids. Some improvement in BUN/creatinine. Good urine output. May 07: Oral intake fair. Patient remains off diuretics. On IV fluids. Creatinine down to 1.2. Sodium 120. Avoid free water. Fluid restriction.-1500 cc a day avoid free water. May 08: Patient sodium is dropped 117. Already on fluid restriction. Nephrology was consulted. IV fluids being discontinued. Received 1 dose of IV Lasix. Amlodipine has been held.-Brought to nurse physical medicine teacher Kaylan looked at the groin area. Patient has evidence of candidiasis. Nystatin topical powder twice daily added. May 09: Sodium up to 125. Breathing stable. Remains on fluid restriction. Urine osmolality 257. Urine sodium less than 20. IV Lasix repeated by nephrology today. May 10: Saw the patient this morning. Blood pressure running a bit low. A bit alkalotic. Increasing creatinine. Discussed with Dr. Johnson. Hold diuretics for now. Diamox added. Lasix switched over to 40 mg for tomorrow. Active Medications Acetaminophen (Acetaminophen Tab 325 Mg Tab) 650 mg PO Q6H PRN PRN Reason: Pain Hydrocodone Bitart/Acetaminophen (Hydrocodone/Apap 5-325mg 1 Each Tab) 1 each PO Q6H PRN PRN Reason: Pain Last Admin: 05/10/24 20:38 Dose: 1 each Acetazolamide (Acetazolamide 250 Mg Tab) 250 mg PO DAILY [facility] Last Admin: 05/10/24 20:37 Dose: 250 mg Allopurinol (Allopurinol 100 Mg Tab) 100 mg PO DAILY [facility] Last Admin: 05/10/24 08:24 Dose: 100 mg Aripiprazole (Aripiprazole 10 Mg Tab) 10 mg PO DAILY [facility] Last Admin: 05/10/24 08:26 Dose: 10 mg Atorvastatin Calcium (Atorvastatin 40 Mg Tab) 40 mg PO HS [facility] Last Admin: 05/10/24 20:36 Dose: 40 mg Carbamide Perox/Anhydrous Glycerin (Carbamide Peroxide 6.5% Drops 15 Ml Btl) 5 drops BOTH EARS BID [facility] Last Admin: 05/10/24 08:27 Dose: 5 drops Dapagliflozin (Dapagliflozin Propanediol 5 Mg Tablet) 5 mg PO DAILY [facility] Last Admin: 05/10/24 08:25 Dose: 5 mg Dextrose/Water (Dextrose 50% Syringe 50 Ml) 25 ml IVP PER PROTOCOL PRN; Protocol PRN Reason: Hypoglycemia Dextrose/Water (Dextrose 50% Syringe 50 Ml) 50 ml IVP PER PROTOCOL PRN; Protocol PRN Reason: Hypoglycemia Dextrose/Water (Dextrose 50% Syringe 50 Ml) 25 ml IVP PER PROTOCOL PRN; Protocol PRN Reason: Hypoglycemia Duloxetine HCl (Duloxetine Hcl 60 Mg Capsule.Dr) 60 mg PO DAILY [facility] Last Admin: 05/10/24 08:25 Dose: 60 mg Enoxaparin Sodium (Enoxaparin 30 Mg/0.3 Ml Syringe) 30 mg SQ DAILY [facility] Last Admin: 05/10/24 08:25 Dose: 30 mg Furosemide (Furosemide 40 Mg Tab) 40 mg PO DAILY [facility] Insulin Aspart (Insulin Aspart (Novolog) 100 Unit/Ml Vial) 0 unit SQ AC-TID [facility]; Protocol Last Admin: 05/10/24 17:54 Dose: 6 unit Insulin Detemir (Insulin Detemir (Levemir) 100 Unit/Ml Syr) 50 unit SQ HS [facility] Last Admin: 05/10/24 20:37 Dose: 50 unit Metoprolol Tartrate (Metoprolol Tartrate 25 Mg Tab) 25 mg PO BID [facility] Last Admin: 05/10/24 21:22 Dose: Not Given Naloxone HCl (Naloxone 0.4 Mg/Ml 1 Ml Vial) 0.2 mg IV Q2M PRN PRN Reason: Opioid Reversal Mirabegron [ Myrbetriq] 25 Mg Tablet 25 mg PO DAILY [facility] Last Admin: 05/10/24 08:26 Dose: Not Given Nystatin (Nystatin 100,000 Unit/Gm Powd 15 Gm) 1 applic TOPICAL BID [facility]; Protocol Last Admin: 05/10/24 20:38 Dose: 1 applic Oxybutynin Chloride (Oxybutynin 15 Mg Tab.Er.24) 15 mg PO DAILY [facility] Last Admin: 05/10/24 08:25 Dose: 15 mg Pantoprazole Sodium (Pantoprazole 40 Mg Tablet) 40 mg PO DAILY@0730 [facility] Last Admin: 05/10/24 06:38 Dose: 40 mg Sodium Chloride (Sodium Chloride 0.65% Nasal [place] 44 Ml Btl) 1 spray INTRANASAL QID [facility] Last Admin: 05/10/24 17:55 Dose: 1 spray Trazodone HCl (Trazodone Hcl 50 Mg Tab) 150 mg PO HS [facility] Last Admin: 05/10/24 20:36 Dose: 150 mg Past medical history to include: Depression, hyperlipidemia, urinary stress incontinence, diabetes mellitus type 2, CAD, COPD, DVT, GERD, hyperlipidemia, mentally incapacitated, chronic kidney disease stage IV, right lobectomy for lung cancer, abdominal wall hernia, Social history: Legal guardian Marianela Syed. Past history of alcohol dependence. Currently at [facility] Physical examination: VITAL SIGNS: 98.8, 52, 18, 106 x 45, 99% on 3 L GENERAL: Sitting at edge of the bed EYES: Pupils equal. Conjunctiva normal. HEENT: External appearance of nose and ears normal, oral cavity dry mucous. Hard of hearing NECK: JVD possibly raised; masses not palpable. HEART: First and second heart sounds are normal; edema decreased LUNGS: Respiratory rate increased; decreased breath sounds. ABDOMEN: Soft, non-abdominal tenderness, no guarding rigidity abdominal wall hernia nontender, liver spleen not palpable, no masses palpable. Pelvic area evidence of candidiasis PSYCH: Awake, answering questions MUSCULOSKELETAL:No Clubbing/cyanosis;muscles-grossly intact. OA NEUROLOGICAL: Cranial nerves grossly intact; no facial asymmetry, INVESTIGATIONS, reviewed in the clinical context: May 10: Sodium 128 potassium 4.2 BUN 74 creatinine 1.59 May 09: Potassium 4.4 BUN 70 creatinine 1.26 May 08: Potassium 4.3 sodium 117 BUN 64 creatinine 1.24. Urine random sodium less than 20 May 07: Potassium 4.4 sodium 120 BUN 70 creatinine 1.20 May 06: Potassium 4 creatinine 1.36 May 05: White count 7.8 hemoglobin 10.4 platelets 169 sodium 129 potassium 4.2 BUN 109 creatinine 1.67 glucose 298 Previous labs: April 06, 2024: BUN 52 creatinine 1.18 Assessment and plan: -Acute kidney injury probably ATN, from diuretics. Patient does take Zaroxolyn, Lasix, at home: Some improvement Temporarily hold off diuretics. Was hydrated. -Chronic kidney disease, stage III. -Hyponatremia suspect hypoosmolar, with hyper volume Amanda: Some improvement Repeat sodium, serum osmolality, urine sodium Avoid free water Fluid restriction 2000 cc a day Did receive IV Lasix. -Chronic congestive heart failure exacerbation from diastolic dysfunction. EF 55-60%.: Hold diuretics for now -Gallstones, asymptomatic -Morbid obesity BMI 62.5 Weight loss measures -Chronic kidney disease stage III nephrosclerosis Creatinine was 1.18 on April 06 -Metabolic alkalosis from volume contraction -Hard of hearing -Diabetes mellitus type 2 on insulin, uncontrolled with hyperglycemia Levemir t60 units at night. Accu-Cheks -Depression and anxiety Abilify 10 mg a day. Cymbalta-60 mg daily -Essential hypertension, Norvasc Lopressor 25 mg twice a day. -Candidiasis in the perineal area. Nystatin topical powder twice daily -Hyperuricemia Allopurinol 100 mg a day -GERD Protonix 20 mg daily -Chronic urinary stress incontinence Oxybutynin 15 mg a day, Myrbetriq 25 mg a day Has a pure wick placed here -Chronic arthritis with pain [place] 10 1 tablet every 6 when necessary -Chronic hard of hearing -Chronic medical debility. At her baseline uses a walker -Legal guardian: Marianela Syed Hold Lasix today. Switch to p.o. Lasix tomorrow morning. Diamox added. Past Medical History Past Medical History: Asthma, Coronary Artery Disease (CAD), Cancer, Chest Pain / Angina, COPD, Diabetes Mellitus, Deep Vein Thrombosis (DVT), GERD/Reflux, Hyperlipidemia, Hypertension, Myocardial Infarction ([place]), Osteoarthritis ([place]), Renal Disease Additional Past Medical History / Comment(s): mentally incapacitated per guardian, morbid obesity, Chronic kidney disease stage IV, chronic bronchitis, lobectomy for lung cancer, abdominal wall hernia R side, generalized weakness, gait dysfunction, falls, DJD T12 and L1, urine incontinence at times. The patient lives w/her guardian Marianela Syed who is new to this role so wasn't able to confirm health hx., gets bubble pack of meds set up by Visiting Physician- takes own meds per guardian Last Myocardial Infarction Date:: 01/20/09 History of Any Multi-Drug Resistant Organisms: VRE Date of last positivie culture/infection: 11/13/17 MDRO Source:: VRE URINE Past Surgical History: Section, Heart Catheterization, Heart Catheterization With Stent, Orthopedic Surgery Additional Past Surgical History / Comment(s): Lung lobectomy, ORIF RIGHT ULNA/RADIUS, left rotator cuff repair, cataract removals, heel surgery r/t infection (laterality unknown), colonoscopies/ benign polypectomy, PCI/ stent x2, guardian unable to confirm Past Anesthesia/Blood Transfusion Reactions: No Reported Reaction Date of Last Stent Placement:: 11/2016 Past Psychological History: Anxiety, Bipolar, Depression Smoking Status: Never smoker Past Alcohol Use History: None Reported Past Drug Use History: None Reported
[2024-05-11 06:48] LABS: African American GFR (CKD) 32 (>60 ml/min/1.73 sqM); Anion Gap 6 mmol/L; Blood Urea Nitrogen 75 mg/dL (7-17); Calcium 7.9 mg/dL (8.4-10.2); Carbon Dioxide 30 mmol/L (22-30); Chloride 92 mmol/L (98-107); Glucose 152 mg/dL (74-99); Non-African American GFR(CKD) 28 (>60 ml/min/1.73 sqM); Potassium 4.1 mmol/L (3.5-5.1); Sodium 128 mmol/L (137-145)
[2024-05-11] MEDS: FUROSEMIDE 40 MG TAB PO SCH (08:57)
[2024-05-11] MEDS: ACETAMINOPHEN TAB 325 MG TAB PO PRN (09:02)
--- NOTE | 2024-05-11 11:44 | P.PN ---
Subjective patient is seen for follow-up for hyponatremia, hypervolemic and improved with diuresis and discontinuation of IV fluids. Shortness of breath has improved. Serum sodium remains at 128 today. Serum creatinine increased to 1.7 today. Objective - Vital Signs Vital signs: Vital Signs Temp 97.7 F 05/11/24 07:25 Pulse 76 05/11/24 07:25 Resp 20 05/11/24 07:25 BP 147/73 05/11/24 07:25 Pulse Ox 95 05/11/24 08:54 FiO2 Intake & Output 05/10/24 05/11/24 05/11/24 18:59 06:59 18:59 Intake Total 1288 920 118 Output Total 1400 1200 1100 Balance -112 -280 -982 Intake: Oral 1288 920 118 Output: Urine 1400 1200 1100 Other: Voiding Method External Catheter # Bowel Movements 1 - Exam patient is awake, comfortable, no acute distress.obese Examination of the heart S1 and S2 Examination of the lungs decreased breath sounds at the bases Abdomen is soft obese Examination of lower extremity shows edema 1+ bilaterally,mostly chronic and with lymphedema CLOTH SPONGER exam grossly intact - Labs CBC & Chem 7: 05/05/24 10:19 05/11/24 05:46 Labs: Abnormal Lab Results - Last 24 Hours (Table) 05/11/24 Range/Units 05:46 Sodium 128 L (137-145) mmol/L Chloride 92 L (98-107) mmol/L BUN 75 H (7-17) mg/dL Creatinine 1.78 H (0.52-1.04) mg/dL Glucose 152 H (74-99) mg/dL Calcium 7.9 L (8.4-10.2) mg/dL Assessment and Plan Assessment: 1. Hyponatremia, hypervolemic. Improved with diuresis 2. Essential hypertension with blood pressure on the lower side. Maintained on Norvasc and metoprolol. 3. Acute kidney injury associated with recent diuresis. Blood pressure also noted to be on the lower side. rule out urine retention. 4. History of CHF with diastolic dysfunction 5. Morbid obesity 6. Chronic kidney disease NKF stage IIIa/b with baseline creatinine around 1.3- 1.4 mg/dL 7. Volume overload Plan: check bladder scan Hold for CK due to acute kidney injury DC Diamox in a.m. continue with fluid restriction Repeat labs in a.m.
--- NOTE | 2024-05-11 19:51 | P.PN ---
Progress Note - Text Progress Note Date: 05/11/24 Chief Complaint: Abnormal kidney function This is a 74-year-old patient, follows with visiting physicians Dr. Waller. Baseline on a wheelchair r. Legal guardian is Marianela Syed Currently resident of [facility]. Patient was brought in by the EMS after the staff noticed that patient is increasingly weakness. Decreased mobility. And worsening renal failure. She was here in the ER yesterday 2. Patient states she has baseline short of breath. Had baseline chronic pain. She thinks her appetite is fair. May 06: She has been kept off diuretics. Getting IV fluids. Some improvement in BUN/creatinine. Good urine output. May 07: Oral intake fair. Patient remains off diuretics. On IV fluids. Creatinine down to 1.2. Sodium 120. Avoid free water. Fluid restriction.-1500 cc a day avoid free water. May 08: Patient sodium is dropped 117. Already on fluid restriction. Nephrology was consulted. IV fluids being discontinued. Received 1 dose of IV Lasix. Amlodipine has been held.-Brought to nurse machine programmer Kaylan looked at the groin area. Patient has evidence of candidiasis. Nystatin topical powder twice daily added. May 09: Sodium up to 125. Breathing stable. Remains on fluid restriction. Urine osmolality 257. Urine sodium less than 20. IV Lasix repeated by nephrology today. May 10: Saw the patient this morning. Blood pressure running a bit low. A bit alkalotic. Increasing creatinine. Discussed with Dr. Johnson. Hold diuretics for now. Diamox added. Lasix switched over to 40 mg for tomorrow. May 11: Patient comfortable. Has been on oral Lasix starting today-Per. Nephrology. Discussed with Dr. Johnson. Change fluid restriction to 1800 cc a day. Repeat labs tomorrow. Creatinine up to 1.78 Active Medications Acetaminophen (Acetaminophen Tab 325 Mg Tab) 650 mg PO Q6H PRN PRN Reason: Pain Last Admin: 05/11/24 09:02 Dose: 650 mg Hydrocodone Bitart/Acetaminophen (Hydrocodone/Apap 5-325mg 1 Each Tab) 1 each PO Q6H PRN PRN Reason: Pain Last Admin: 05/11/24 12:56 Dose: 1 each Acetazolamide (Acetazolamide 250 Mg Tab) 250 mg PO DAILY [facility] Last Admin: 05/11/24 08:57 Dose: 250 mg Allopurinol (Allopurinol 100 Mg Tab) 100 mg PO DAILY [facility] Last Admin: 05/11/24 08:57 Dose: 100 mg Aripiprazole (Aripiprazole 10 Mg Tab) 10 mg PO DAILY [facility] Last Admin: 05/11/24 08:57 Dose: 10 mg Atorvastatin Calcium (Atorvastatin 40 Mg Tab) 40 mg PO HS [facility] Last Admin: 05/10/24 20:36 Dose: 40 mg Carbamide Perox/Anhydrous Glycerin (Carbamide Peroxide 6.5% Drops 15 Ml Btl) 5 drops BOTH EARS BID [facility] Last Admin: 05/11/24 08:58 Dose: 5 drops Dextrose/Water (Dextrose 50% Syringe 50 Ml) 25 ml IVP PER PROTOCOL PRN; Protocol PRN Reason: Hypoglycemia Dextrose/Water (Dextrose 50% Syringe 50 Ml) 50 ml IVP PER PROTOCOL PRN; Protocol PRN Reason: Hypoglycemia Dextrose/Water (Dextrose 50% Syringe 50 Ml) 25 ml IVP PER PROTOCOL PRN; Protocol PRN Reason: Hypoglycemia Duloxetine HCl (Duloxetine Hcl 60 Mg Capsule.Dr) 60 mg PO DAILY [facility] Last Admin: 05/11/24 08:57 Dose: 60 mg Enoxaparin Sodium (Enoxaparin 30 Mg/0.3 Ml Syringe) 30 mg SQ DAILY [facility] Last Admin: 05/11/24 08:58 Dose: 30 mg Furosemide (Furosemide 40 Mg Tab) 40 mg PO DAILY [facility] Last Admin: 05/11/24 08:57 Dose: 40 mg Insulin Aspart (Insulin Aspart (Novolog) 100 Unit/Ml Vial) 0 unit SQ AC-TID [facility]; Protocol Last Admin: 05/11/24 17:28 Dose: 6 unit Insulin Detemir (Insulin Detemir (Levemir) 100 Unit/Ml Syr) 50 unit SQ HS [facility] Last Admin: 05/10/24 20:37 Dose: 50 unit Metoprolol Tartrate (Metoprolol Tartrate 25 Mg Tab) 25 mg PO BID [facility] Last Admin: 05/11/24 08:57 Dose: 25 mg Naloxone HCl (Naloxone 0.4 Mg/Ml 1 Ml Vial) 0.2 mg IV Q2M PRN PRN Reason: Opioid Reversal Mirabegron [ Myrbetriq] 25 Mg Tablet 25 mg PO DAILY [facility] Last Admin: 05/11/24 10:11 Dose: Not Given Nystatin (Nystatin 100,000 Unit/Gm Powd 15 Gm) 1 applic TOPICAL BID [facility]; Protocol Last Admin: 05/11/24 08:58 Dose: 1 applic Oxybutynin Chloride (Oxybutynin 15 Mg Tab.Er.24) 15 mg PO DAILY [facility] Last Admin: 05/11/24 08:58 Dose: 15 mg Pantoprazole Sodium (Pantoprazole 40 Mg Tablet) 40 mg PO DAILY@0730 [facility] Last Admin: 05/11/24 06:38 Dose: 40 mg Sodium Chloride (Sodium Chloride 0.65% Nasal [place] 44 Ml Btl) 1 spray INTRANASAL QID [facility] Last Admin: 05/11/24 17:29 Dose: Not Given Trazodone HCl (Trazodone Hcl 50 Mg Tab) 150 mg PO HS [facility] Last Admin: 05/10/24 20:36 Dose: 150 mg Past medical history to include: Depression, hyperlipidemia, urinary stress incontinence, diabetes mellitus type 2, CAD, COPD, DVT, GERD, hyperlipidemia, mentally incapacitated, chronic kidney disease stage IV, right lobectomy for lung cancer, abdominal wall hernia, Social history: Legal guardian Marianela Syed. Past history of alcohol dependence. Currently at [facility] Physical examination: VITAL SIGNS: 97.8, 63, 18, 107 x 58, 99% on 3 L GENERAL: Sitting at edge of the bed EYES: Pupils equal. Conjunctiva normal. HEENT: External appearance of nose and ears normal, oral cavity dry mucous. Hard of hearing NECK: JVD possibly raised; masses not palpable. HEART: First and second heart sounds are normal; edema decreased LUNGS: Respiratory rate increased; decreased breath sounds. ABDOMEN: Soft, non-abdominal tenderness, no guarding rigidity abdominal wall hernia nontender, liver spleen not palpable, no masses palpable. Pelvic area evidence of candidiasis PSYCH: Awake, answering questions MUSCULOSKELETAL:No Clubbing/cyanosis;muscles-grossly intact. OA NEUROLOGICAL: Cranial nerves grossly intact; no facial asymmetry, INVESTIGATIONS, reviewed in the clinical context: May 11: Sodium 128 potassium 4.1 bicarb 30 BUN 35 creatinine 1.78 May 10: Sodium 128 potassium 4.2 BUN 74 creatinine 1.59 May 09: Potassium 4.4 BUN 70 creatinine 1.26 May 08: Potassium 4.3 sodium 117 BUN 64 creatinine 1.24. Urine random sodium less than 20 May 07: Potassium 4.4 sodium 120 BUN 70 creatinine 1.20 May 06: Potassium 4 creatinine 1.36 May 05: White count 7.8 hemoglobin 10.4 platelets 169 sodium 129 potassium 4.2 BUN 109 creatinine 1.67 glucose 298 Previous labs: April 06, 2024: BUN 52 creatinine 1.18 Assessment and plan: -Acute kidney injury probably ATN, from diuretics. Patient does take Zaroxolyn, Lasix, at home: Some improvement Initially diuretics were held. And hydrated. Then diuretics/Lasix resumed -Hyponatremia suspect hypoosmolar, with hyper volume Amanda: Some improvement Repeat sodium, serum osmolality, urine sodium Avoid free water Fluid restriction 1800 cc a day Did receive IV Lasix. Now on Lasix 40 mg a day -Chronic congestive heart failure exacerbation from diastolic dysfunction. EF 55-60%.: Lasix 40 mg a day -Gallstones, asymptomatic -Morbid obesity BMI 62.5 Weight loss measures -Chronic kidney disease stage III nephrosclerosis Creatinine was 1.18 on April 06 -Metabolic alkalosis from volume contraction -Hard of hearing -Diabetes mellitus type 2 on insulin, uncontrolled with hyperglycemia Levemir t60 units at night. Accu-Cheks -Depression and anxiety Abilify 10 mg a day. Cymbalta-60 mg daily -Essential hypertension, Norvasc Lopressor 25 mg twice a day. -Candidiasis in the perineal area. Nystatin topical powder twice daily -Hyperuricemia Allopurinol 100 mg a day -GERD Protonix 20 mg daily -Chronic urinary stress incontinence Oxybutynin 15 mg a day, Myrbetriq 25 mg a day Has a pure wick placed here -Chronic arthritis with pain [place] 10 1 tablet every 6 when necessary -Chronic hard of hearing -Chronic medical debility. At her baseline uses a walker -Legal guardian: Marianela Syed On p.o. Lasix. Discussed with Dr. Johnson. Repeat labs tomorrow. 1800 fluid restriction. Past Medical History Past Medical History: Asthma, Coronary Artery Disease (CAD), Cancer, Chest Pain / Angina, COPD, Diabetes Mellitus, Deep Vein Thrombosis (DVT), GERD/Reflux, Hyperlipidemia, Hypertension, Myocardial Infarction (MS), Osteoarthritis (OA), Renal Disease Additional Past Medical History / Comment(s): mentally incapacitated per guardian, morbid obesity, Chronic kidney disease stage IV, chronic bronchitis, lobectomy for lung cancer, abdominal wall hernia R side, generalized weakness, gait dysfunction, falls, DJD T12 and L1, urine incontinence at times. The christy ent lives w/her guardian Marianela Syed who is new to this role so wasn't able to confirm health hx., gets bubble pack of meds set up by Visiting Physician-takes own meds per guardian Last Myocardial Infarction Date:: 01/20/09 History of Any Multi-Drug Resistant Organisms: VRE Date of last positivie culture/infection: 11/13/17 MDRO Source:: VRE URINE Past Surgical History: Section, Heart Catheterization, Heart Catheterization With Stent, Orthopedic Surgery Additional Past Surgical History / Comment(s): Lung lobectomy, ORIF RIGHT ULNA/RADIUS, left rotator cuff repair, cataract removals, heel surgery r/t infection (laterality unknown), colonoscopies/ benign polypectomy, PCI/ stent x2, guardian unable to confirm Past Anesthesia/Blood Transfusion Reactions: No Reported Reaction Date of Last Stent Placement:: 11/2016 Past Psychological History: Anxiety, Bipolar, Depression Smoking Status: Never smoker Past Alcohol Use History: None Reported Past Drug Use History: None Reported
[2024-05-12 06:52] LABS: African American GFR (CKD) 31 (>60 ml/min/1.73 sqM); Anion Gap 6 mmol/L; Blood Urea Nitrogen 68 mg/dL (7-17); Carbon Dioxide 31 mmol/L (22-30); Chloride 93 mmol/L (98-107); Glucose 147 mg/dL (74-99); Non-African American GFR(CKD) 27 (>60 ml/min/1.73 sqM); Potassium 4.2 mmol/L (3.5-5.1); Sodium 130 mmol/L (137-145)
[2024-05-12 08:43] VITALS: BP 134/52; PULSE 85; RESP 16; TEMP 97.7
--- NOTE | 2024-05-12 13:02 | P.DS ---
Providers Date of admission: 05/08/24 11:05 Expected date of discharge: 05/12/24 Attending physician: Augustus Jackson Consults: 05/08/24 07:45 Consult Physician Urgent Consulting Provider: Alesha Johnson Consult Reason/Comments: critical sodium Do you want consulting provider notified?: Yes Primary care physician: [facility] Course: Chief Complaint: Abnormal kidney function This is a 74-year-old patient, follows with visiting physicians Dr. Waller. Baseline on a wheelchair r. Legal guardian is Marianela Syed Currently resident of [facility] [place]. Patient was brought in by the EMS after the staff noticed that patient is increasingly weakness. Decreased mobility. And worsening renal failure. She was here in the ER yesterday 2. Patient states she has baseline short of breath. Had baseline chronic pain. She thinks her appetite is fair. May 06: She has been kept off diuretics. Getting IV fluids. Some improvement in BUN/creatinine. Good urine output. May 07: Oral intake fair. Patient remains off diuretics. On IV fluids. Creatinine down to 1.2. Sodium 120. Avoid free water. Fluid restriction.-1500 cc a day avoid free water. May 08: Patient sodium is dropped 117. Already on fluid restriction. Nephrology was consulted. IV fluids being discontinued. Received 1 dose of IV Lasix. Amlodipine has been held.-Brought to nurse firer automatic stoker Kaylan looked at the groin area. Patient has evidence of candidiasis. Nystatin topical powder twice daily added. May 09: Sodium up to 125. Breathing stable. Remains on fluid restriction. Urine osmolality 257. Urine sodium less than 20. IV Lasix repeated by nephrology today. May 10: Saw the patient this morning. Blood pressure running a bit low. A bit alkalotic. Increasing creatinine. Discussed with Dr. Johnson. Hold diuretics for now. Diamox added. Lasix switched over to 40 mg for tomorrow. May 11: Patient comfortable. Has been on oral Lasix starting today-Per. Nephrology. Discussed with Dr. Jonhson. Change fluid restriction to 1800 cc a day. Repeat labs tomorrow. Creatinine up to 1.78 May 12: No new issues. Discussed with nephrology Dr. Johnson. Resume Lasix in couple of days. Continue fluid restriction. Follow-up outpatient. Patient return to [facility] today. Resume Lasix p.o. on Wednesday Discussion and discharge planning more than 35 minutes Active Medications Acetaminophen (Acetaminophen Tab 325 Mg Tab) 650 mg PO Q6H PRN PRN Reason: Pain Last Admin: 05/11/24 09:02 Dose: 650 mg Hydrocodone Bitart/Acetaminophen (Hydrocodone/Apap 5-325mg 1 Each Tab) 1 each PO Q6H PRN PRN Reason: Pain Last Admin: 05/12/24 06:52 Dose: 1 each Acetazolamide (Acetazolamide 250 Mg Tab) 250 mg PO DAILY [facility] Last Admin: 05/12/24 10:10 Dose: 250 mg Allopurinol (Allopurinol 100 Mg Tab) 100 mg PO DAILY [facility] Last Admin: 05/12/24 10:10 Dose: 100 mg Aripiprazole (Aripiprazole 10 Mg Tab) 10 mg PO DAILY [facility] Last Admin: 05/12/24 10:10 Dose: 10 mg Atorvastatin Calcium (Atorvastatin 40 Mg Tab) 40 mg PO HS [facility] Last Admin: 05/11/24 21:01 Dose: 40 mg Carbamide Perox/Anhydrous Glycerin (Carbamide Peroxide 6.5% Drops 15 Ml Btl) 5 drops BOTH EARS BID [facility] Last Admin: 05/12/24 10:11 Dose: 5 drops Dextrose/Water (Dextrose 50% Syringe 50 Ml) 25 ml IVP PER PROTOCOL PRN; Protocol PRN Reason: Hypoglycemia Dextrose/Water (Dextrose 50% Syringe 50 Ml) 50 ml IVP PER PROTOCOL PRN; Protocol PRN Reason: Hypoglycemia Dextrose/Water (Dextrose 50% Syringe 50 Ml) 25 ml IVP PER PROTOCOL PRN; Protocol PRN Reason: Hypoglycemia Duloxetine HCl (Duloxetine Hcl 60 Mg Capsule.Dr) 60 mg PO DAILY [facility] Last Admin: 05/12/24 10:10 Dose: 60 mg Enoxaparin Sodium (Enoxaparin 30 Mg/0.3 Ml Syringe) 30 mg SQ DAILY [facility] Last Admin: 05/12/24 10:10 Dose: 30 mg Insulin Aspart (Insulin Aspart (Novolog) 100 Unit/Ml Vial) 0 unit SQ AC-TID [facility]; Protocol Last Admin: 05/12/24 06:49 Dose: 3 unit Insulin Detemir (Insulin Detemir (Levemir) 100 Unit/Ml Syr) 50 unit SQ HS [facility] Last Admin: 05/11/24 21:02 Dose: 50 unit Metoprolol Tartrate (Metoprolol Tartrate 12.5 Mg Tab) 12.5 mg PO BID [facility] Naloxone HCl (Naloxone 0.4 Mg/Ml 1 Ml Vial) 0.2 mg IV Q2M PRN PRN Reason: Opioid Reversal Mirabegron [ Myrbetriq] 25 Mg Tablet 25 mg PO DAILY [facility] Last Admin: 05/12/24 10:20 Dose: Not Given Nystatin (Nystatin 100,000 Unit/Gm Powd 15 Gm) 1 applic TOPICAL BID [facility]; Protocol Last Admin: 05/12/24 10:11 Dose: 1 applic Oxybutynin Chloride (Oxybutynin 15 Mg Tab.Er.24) 15 mg PO DAILY [facility] Last Admin: 05/12/24 10:10 Dose: 15 mg Pantoprazole Sodium (Pantoprazole 40 Mg Tablet) 40 mg PO DAILY@0730 [facility] Last Admin: 05/12/24 06:49 Dose: 40 mg Sodium Chloride (Sodium Chloride 0.65% Nasal [place] 44 Ml Btl) 1 spray INTRANASAL QID [facility] Last Admin: 05/12/24 10:10 Dose: 1 spray Trazodone HCl (Trazodone Hcl 50 Mg Tab) 150 mg PO HS [facility] Last Admin: 05/11/24 21:01 Dose: 150 mg Past medical history to include: Depression, hyperlipidemia, urinary stress incontinence, diabetes mellitus type 2, CAD, COPD, DVT, GERD, hyperlipidemia, mentally incapacitated, chronic kidney disease stage IV, right lobectomy for lung cancer, abdominal wall hernia, Social history: Legal guardian Marianela Syed. Past history of alcohol dependence. Currently at [facility] Physical examination: VITAL SIGNS: 97.7, 85, 16, 134 x 52, 100% 3 L GENERAL: Comfortable EYES: Pupils equal. Conjunctiva normal. HEENT: External appearance of nose and ears normal, oral cavity dry mucous. Hard of hearing NECK: JVD possibly raised; masses not palpable. HEART: First and second heart sounds are normal; edema decreased LUNGS: Respiratory rate increased; decreased breath sounds. ABDOMEN: Soft, non-abdominal tenderness, no guarding rigidity abdominal wall hernia nontender, liver spleen not palpable, no masses palpable. Pelvic area evidence of candidiasis PSYCH: Awake, answering questions MUSCULOSKELETAL:No Clubbing/cyanosis;muscles-grossly intact. OA NEUROLOGICAL: Cranial nerves grossly intact; no facial asymmetry, INVESTIGATIONS, reviewed in the clinical context: May 12: Sodium 130 potassium 4.2 BUN 68 creatinine 1.83 May 11: Sodium 128 potassium 4.1 bicarb 30 BUN 35 creatinine 1.78 May 10: Sodium 128 potassium 4.2 BUN 74 creatinine 1.59 May 09: Potassium 4.4 BUN 70 creatinine 1.26 May 08: Potassium 4.3 sodium 117 BUN 64 creatinine 1.24. Urine random sodium less than 20 May 07: Potassium 4.4 sodium 120 BUN 70 creatinine 1.20 May 06: Potassium 4 creatinine 1.36 May 05: White count 7.8 hemoglobin 10.4 platelets 169 sodium 129 potassium 4.2 BUN 109 creatinine 1.67 glucose 298 Previous labs: April 06, 2024: BUN 52 creatinine 1.18 Assessment and plan: -Acute kidney injury probably ATN, from diuretics. Takes Zaroxolyn, Lasix, at home: Initially diuretics were held. And hydrated. Zaroxolyn discontinued. Lasix resumed P.o. Lasix held. Resume in 2 days -Hyponatremia suspect hypoosmolar, with hyper volume Amanda: Some improvement Repeat sodium, serum osmolality, urine sodium Avoid free water Fluid restriction 1800 cc a day Did receive IV Lasix. Now on Lasix 40 mg a day -Chronic congestive heart failure exacerbation from diastolic dysfunction. EF 55-60%.: Lasix 40 mg a day-resume on Wednesday -Gallstones, asymptomatic -Morbid obesity BMI 62.5 Weight loss measures -Chronic kidney disease stage III nephrosclerosis Creatinine was 1.18 on April 06 -Metabolic alkalosis from volume contraction -Hard of hearing -Diabetes mellitus type 2 on insulin, uncontrolled with hyperglycemia Levemir t60 units at night. Accu-Cheks -Depression and anxiety Abilify 10 mg a day. Cymbalta-60 mg daily -Essential hypertension, Norvasc Lopressor 25 mg twice a day. -Candidiasis in the perineal area. Nystatin topical powder twice daily -Hyperuricemia Allopurinol 100 mg a day -GERD Protonix 20 mg daily -Chronic urinary stress incontinence Oxybutynin 15 mg a day, Myrbetriq 25 mg a day Has a pure wick placed here -Chronic arthritis with pain [place] 10 1 tablet every 6 when necessary -Chronic hard of hearing -Chronic medical debility. At her baseline uses a walker -Legal guardian: Marianela Syed Disposition: ECF, [facility] [place] Labs: CBC BMP-3 days Past Medical History Past Medical History: Asthma, Coronary Artery Disease (CAD), Cancer, Chest Pain / Angina, COPD, Diabetes Mellitus, Deep Vein Thrombosis (DVT), GERD/Reflux, Hyperlipidemia, Hypertension, Myocardial Infarction (MS), Osteoarthritis (OA), Renal Disease Additional Past Medical History / Comment(s): mentally incapacitated per guardian, morbid obesity, Chronic kidney disease stage IV, chronic bronchitis, lobectomy for lung cancer, abdominal wall hernia R side, generalized weakness, gait dysfunction, falls, DJD T12 and L1, urine incontinence at times. The patient lives w/her guardian Marianela Syed who is new to this role so wasn't able to confirm health hx., gets bubble pack of meds set up by Visiting Physician- takes own meds per guardian Last Myocardial Infarction Date:: 01/20/09 History of Any Multi-Drug Resistant Organisms: VRE Date of last positivie culture/infection: 11/13/17 MDRO Source:: VRE URINE Past Surgical History: Section, Heart Catheterization, Heart Catheterization With Stent, Orthopedic Surgery Additional Past Surgical History / Comment(s): Lung lobectomy, ORIF RIGHT ULNA/RADIUS, left rotator cuff repair, cataract removals, heel surgery r/t infection (laterality unknown), colonoscopies/ benign polypectomy, PCI/ stent x2, guardian unable to confirm Past Anesthesia/Blood Transfusion Reactions: No Reported Reaction Date of Last Stent Placement:: 11/2016 Past Psychological History: Anxiety, Bipolar, Depression Smoking Status: Never smoker Past Alcohol Use History: None Reported Past Drug Use History: None Reported Plan - Discharge Summary Discharge Rx Participant: Yes New Discharge Prescriptions: New Nystatin 100,000 Unit/gm Powd [Mycostatin Powder] 1 applic TOPICAL BID each Continue Atorvastatin [Lipitor] 40 mg PO HS ARIPiprazole [Abilify] 10 mg PO DAILY allopurinoL [Zyloprim] 100 mg PO DAILY Oxybutynin ER [Ditropan XL] 15 mg PO DAILY Metoprolol Tartrate [Lopressor] 25 mg PO BID #0 Empagliflozin [Jardiance] 10 mg PO DAILY DULoxetine HCL [Cymbalta] 60 mg PO DAILY #0 Calcium Carbonate 1,000 mg PO Q12H PRN PRN Reason: Heartburn Acetaminophen Tab [Tylenol] 650 mg PO Q6H PRN PRN Reason: Pain Sodium Chloride [Saline Nasal Mist] 1 spray EA NOSTRIL Q8H Omeprazole [PriLOSEC] 40 mg PO DAILY Insulin Glargine,Hum.rec.anlog [Lantus Solostar Pen] 60 units SQ HS HYDROcodone/APAP 5-325MG [Salix 5-325] 1 tab PO Q6H PRN #12 tab PRN Reason: Pain traZODone HCL 150 mg PO HS Mirabegron [Myrbetriq] 25 mg PO DAILY Pantoprazole Sodium [Protonix] 20 mg PO DAILY Insulin Lispro [humaLOG Kwikpen] See Protocol SQ AC-TID Miconazole Nitrate 2% Powder 1 applic TOPICAL BID Fluticasone Nasal [place] [Flonase Nasal [place]] 1 spray EA NOSTRIL DAILY Changed Furosemide [Lasix] 40 mg PO DAILY #0 Discontinued amLODIPine [Norvasc] 5 mg PO DAILY metOLazone [Zaroxolyn] 5 mg PO DIRECTED Potassium Chloride [Klor-Con M20] 20 meq PO DIRECTED Loratadine [Claritin] 10 mg PO DAILY Furosemide [Lasix] 80 mg PO DIRECTED Discharge Medication List Atorvastatin [Lipitor] 40 mg PO HS 11/13/17 [History] ARIPiprazole [Abilify] 10 mg PO DAILY 07/22/21 [History] Mirabegron [Myrbetriq] 25 mg PO DAILY 07/22/21 [History] traZODone HCL 150 mg PO HS 07/22/21 [History] allopurinoL [Zyloprim] 100 mg PO DAILY 01/26/22 [History] Oxybutynin ER [Ditropan XL] 15 mg PO DAILY 06/01/23 [History] Metoprolol Tartrate [Lopressor] 25 mg PO BID #0 06/18/23 [Rx] Empagliflozin [Jardiance] 10 mg PO DAILY 01/05/24 [History] Pantoprazole Sodium [Protonix] 20 mg PO DAILY 01/28/24 [History] DULoxetine HCL [Cymbalta] 60 mg PO DAILY #0 02/02/24 [Rx] Acetaminophen Tab [Tylenol] 650 mg PO Q6H PRN 05/05/24 [History] Calcium Carbonate 1,000 mg PO Q12H PRN 05/05/24 [History] Fluticasone Nasal [place] [Flonase Nasal [place]] 1 spray EA NOSTRIL DAILY 05/05/24 [History] Insulin Glargine,Hum.rec.anlog [Lantus Solostar Pen] 60 units SQ HS 05/05/24 [History] Insulin Lispro [humaLOG Kwikpen] See Protocol SQ AC-TID 05/05/24 [History] Miconazole Nitrate 2% Powder 1 applic TOPICAL BID 05/05/24 [History] Omeprazole [PriLOSEC] 40 mg PO DAILY 05/05/24 [History] Sodium Chloride [Saline Nasal Mist] 1 spray EA NOSTRIL Q8H 05/05/24 [History] Furosemide [Lasix] 40 mg PO DAILY #0 05/12/24 [Rx] HYDROcodone/APAP 5-325MG [Salix 5-325] 1 tab PO Q6H PRN #12 tab 05/12/24 [Rx] Nystatin 100,000 Unit/gm Powd [Mycostatin Powder] 1 applic TOPICAL BID each 1 [Rx] Follow up Appointment(s)/Referral(s): Alesha Johnson MD [STAFF PHYSICIAN] - 1 Week Tre Denise DO [Primary Care Provider] - 1-2 days Activity/Diet/Wound Care/Special Instructions: fluid restrict - 1800 cc/day resume lasix on Wednesday
[2024-05-12 15:02] LABS: Glucose,Whole Blood 214 mg/dL (70-110)
[2024-05-12 15:02] LABS: Glucose,Whole Blood 143 mg/dL (70-110)
[2024-05-12 15:02] LABS: Glucose,Whole Blood 164 mg/dL (70-110)
[2024-05-12 15:03] LABS: Glucose,Whole Blood 179 mg/dL (70-110)
[2024-05-12 15:03] LABS: Glucose,Whole Blood 181 mg/dL (70-110)
[2024-05-12 15:03] LABS: Glucose,Whole Blood 175 mg/dL (70-110)
[2024-05-12 15:03] LABS: Glucose,Whole Blood 193 mg/dL (70-110)
[2024-05-12 15:03] LABS: Glucose,Whole Blood 202 mg/dL (70-110)
[2024-05-12 15:03] LABS: Glucose,Whole Blood 190 mg/dL (70-110)
[2024-05-12 15:03] LABS: Glucose,Whole Blood 235 mg/dL (70-110)
[2024-05-12 15:03] LABS: Glucose,Whole Blood 302 mg/dL (70-110)
[2024-05-12 15:04] LABS: Glucose,Whole Blood 209 mg/dL (70-110)
[2024-05-12 15:04] LABS: Glucose,Whole Blood 156 mg/dL (70-110)
[2024-05-12 15:04] LABS: Glucose,Whole Blood 191 mg/dL (70-110)
[2024-05-12 15:04] LABS: Glucose,Whole Blood 376 mg/dL (70-110)
[2024-05-12 15:04] LABS: Glucose,Whole Blood 204 mg/dL (70-110)
[2024-05-12 15:04] LABS: Glucose,Whole Blood 127 mg/dL (70-110)
[2024-05-12 15:04] LABS: Glucose,Whole Blood 220 mg/dL (70-110)
[2024-05-12 15:05] LABS: Glucose,Whole Blood 198 mg/dL (70-110)
[2024-05-12 15:05] LABS: Glucose,Whole Blood 224 mg/dL (70-110)
[2024-05-12 15:05] LABS: Glucose,Whole Blood 182 mg/dL (70-110)
[2024-05-12 15:06] LABS: Glucose,Whole Blood 258 mg/dL (70-110)
[2024-05-12 15:06] LABS: Glucose,Whole Blood 155 mg/dL (70-110)
[2024-05-12 15:06] LABS: Glucose,Whole Blood 106 mg/dL (70-110)
[2024-05-12 15:06] LABS: Glucose,Whole Blood 204 mg/dL (70-110)
[2024-05-12 15:06] LABS: Glucose,Whole Blood 232 mg/dL (70-110)
[2024-05-12 15:06] LABS: Glucose,Whole Blood 121 mg/dL (70-110)
[2024-05-12 15:06] LABS: Glucose,Whole Blood 294 mg/dL (70-110)
[2024-05-12 15:07] LABS: Glucose,Whole Blood 117 mg/dL (70-110)
--- NOTE | 2024-05-12 16:33 | P.PN ---
Subjective patient is seen for follow-up for hyponatremia, hypervolemic and improved with diuresis and discontinuation of IV fluids. Shortness of breath has improved. Serum sodium remains at 130 today. Serum creatinine increased to 1.8 today. Lasix has been on hold. No urine retention noted. Objective - Vital Signs Vital signs: Vital Signs Temp 97.7 F 05/12/24 07:00 Pulse 85 05/12/24 07:00 Resp 16 05/12/24 07:00 BP 134/52 05/12/24 07:00 Pulse Ox 100 05/12/24 07:00 FiO2 Intake & Output 05/11/24 05/12/24 05/12/24 18:59 06:59 18:59 Intake Total 1116 838 240 Output Total 1700 1600 525 Balance -584 -762 -285 Intake: Oral 1116 838 240 Output: Urine 1700 1600 525 Other: Voiding Method External Catheter External Catheter - Exam patient is awake, comfortable, no acute distress.obese Examination of the heart S1 and S2 Examination of the lungs decreased breath sounds at the bases Abdomen is soft obese Examination of lower extremity shows edema 1+ bilaterally,mostly chronic and w ith lymphedema [employer] exam grossly intact - Labs CBC & Chem 7: 05/05/24 10:19 05/12/24 06:07 Labs: Abnormal Lab Results - Last 24 Hours (Table) 05/05/24 05/05/24 05/06/24 Range/Units 17:58 19:54 05:52 Sodium (137-145) mmol/L Chloride (98-107) mmol/L Carbon Dioxide (22-30) mmol/L BUN (7-17) mg/dL Creatinine (0.52-1.04) mg/dL Glucose (74-99) mg/dL POC Glucose (mg/dL) 294 H 258 H 121 H (70-110) mg/dL Calcium (8.4-10.2) mg/dL 05/06/24 05/06/24 05/07/24 Range/Units 12:20 20:27 06:11 Sodium (137-145) mmol/L Chloride (98-107) mmol/L Carbon Dioxide (22-30) mmol/L BUN (7-17) mg/dL Creatinine (0.52-1.04) mg/dL Glucose (74-99) mg/dL POC Glucose (mg/dL) 117 H 204 H 232 H (70-110) mg/dL Calcium (8.4-10.2) mg/dL 05/07/24 05/07/24 05/07/24 Range/Units 12:03 17:17 20:34 Sodium (137-145) mmol/L Chloride (98-107) mmol/L Carbon Dioxide (22-30) mmol/L BUN (7-17) mg/dL Creatinine (0.52-1.04) mg/dL Glucose (74-99) mg/dL POC Glucose (mg/dL) 155 H 198 H 224 H (70-110) mg/dL Calcium (8.4-10.2) mg/dL 05/08/24 05/08/24 05/08/24 Range/Units 05:47 12:21 17:18 Sodium (137-145) mmol/L Chloride (98-107) mmol/L Carbon Dioxide (22-30) mmol/L BUN (7-17) mg/dL Creatinine (0.52-1.04) mg/dL Glucose (74-99) mg/dL POC Glucose (mg/dL) 182 H 191 H 220 H (70-110) mg/dL Calcium (8.4-10.2) mg/dL 05/08/24 05/09/24 05/09/24 Range/Units 20:09 06:08 12:15 Sodium (137-145) mmol/L Chloride (98-107) mmol/L Carbon Dioxide (22-30) mmol/L BUN (7-17) mg/dL Creatinine (0.52-1.04) mg/dL Glucose (74-99) mg/dL POC Glucose (mg/dL) 209 H 302 H 376 H (70-110) mg/dL Calcium (8.4-10.2) mg/dL 05/09/24 05/09/24 05/09/24 Range/Units 13:33 17:05 20:33 Sodium (137-145) mmol/L Chloride (98-107) mmol/L Carbon Dioxide (22-30) mmol/L BUN (7-17) mg/dL Creatinine (0.52-1.04) mg/dL Glucose (74-99) mg/dL POC Glucose (mg/dL) 127 H 204 H 156 H (70-110) mg/dL Calcium (8.4-10.2) mg/dL 05/10/24 05/10/24 05/10/24 Range/Units 05:55 12:14 17:30 Sodium (137-145) mmol/L Chloride (98-107) mmol/L Carbon Dioxide (22-30) mmol/L BUN (7-17) mg/dL Creatinine (0.52-1.04) mg/dL Glucose (74-99) mg/dL POC Glucose (mg/dL) 181 H 175 H 202 H (70-110) mg/dL Calcium (8.4-10.2) mg/dL 05/10/24 05/11/24 05/11/24 Range/Units 20:09 06:05 12:13 Sodium (137-145) mmol/L Chloride (98-107) mmol/L Carbon Dioxide (22-30) mmol/L BUN (7-17) mg/dL Creatinine (0.52-1.04) mg/dL Glucose (74-99) mg/dL POC Glucose (mg/dL) 190 H 193 H 164 H (70-110) mg/dL Calcium (8.4-10.2) mg/dL 05/11/24 05/11/24 05/12/24 Range/Units 17:18 20:04 06:07 Sodium 130 L (137-145) mmol/L Chloride 93 L (98-107) mmol/L Carbon Dioxide 31 H (22-30) mmol/L BUN 68 H (7-17) mg/dL Creatinine 1.83 H (0.52-1.04) mg/dL Glucose 147 H (74-99) mg/dL POC Glucose (mg/dL) 214 H 143 H (70-110) mg/dL Calcium 8.0 L (8.4-10.2) mg/dL 05/12/24 05/12/24 Range/Units 06:07 12:27 Sodium (137-145) mmol/L Chloride (98-107) mmol/L Carbon Dioxide (22-30) mmol/L BUN (7-17) mg/dL Creatinine (0.52-1.04) mg/dL Glucose (74-99) mg/dL POC Glucose (mg/dL) 179 H 235 H (70-110) mg/dL Calcium (8.4-10.2) mg/dL Assessment and Plan Assessment: 1. Hyponatremia, hypervolemic. Improved with diuresis 2. Essential hypertension with blood pressure on the lower side. Maintained on Norvasc and metoprolol. 3. Acute kidney injury associated with recent diuresis. Blood pressure also noted to be on the lower side. No urine retention. 4. History of CHF with diastolic dysfunction 5. Morbid obesity 6. Chronic kidney disease NKF stage IIIa/b with baseline creatinine around 1.3- 1.4 mg/dL 7. Volume overload Plan: Hold Lasix for 2 to 3 days and resume at 40 mg daily as outpatient. Patient is stable for discharge from nephrology standpoint. DC Diamox continue with fluid restriction Repeat labs in 4 to 5 days post discharge.
[2024-05-12] MEDS ORDERED: METOPROLOL TARTRATE 12.5 MG TAB PO SCH (21:00)
== END 2024-05-12 16:05 | DRG 291 ==
LOC: EC 10:03 → 6NMEDSUR 12:09 → OBSVTOIN 05-08 11:05
PROVIDERS: ADMIT Hospitalist; ATTEND Hospitalist
DX: I13.0 Hypertensive heart and chronic kidney disease with heart failure and stage 1 through stage 4 chronic kidney disease, or unspecified chronic kidney disease (principal); I50.33 Acute on chronic diastolic (congestive) heart failure; N17.0 Acute kidney failure with tubular necrosis; E87.1 Hypo-osmolality and hyponatremia; E87.3 Alkalosis; Z68.44 Body mass index [BMI] 60.0-69.9, adult; N18.4 Chronic kidney disease, stage 4 (severe); E66.01 Morbid (severe) obesity due to excess calories; E86.0 Dehydration; E11.22 Type 2 diabetes mellitus with diabetic chronic kidney disease; E78.5 Hyperlipidemia, unspecified; K21.9 Gastro-esophageal reflux disease without esophagitis; F31.9 Bipolar disorder, unspecified; F41.9 Anxiety disorder, unspecified; G89.29 Other chronic pain; I25.10 Atherosclerotic heart disease of native coronary artery without angina pectoris; E11.65 Type 2 diabetes mellitus with hyperglycemia; N39.3 Stress incontinence (female) (male); B37.9 Candidiasis, unspecified; M19.90 Unspecified osteoarthritis, unspecified site; K80.20 Calculus of gallbladder without cholecystitis without obstruction; I25.2 Old myocardial infarction; Z79.4 Long term (current) use of insulin; Z79.84 Long term (current) use of oral hypoglycemic drugs; Z79.899 Other long term (current) drug therapy; Z85.118 Personal history of other malignant neoplasm of bronchus and lung
CPT/HCPCS: 36415; 71045; 80048; 80053; 81001; 83735; 83930; 83935; 84100; 84295; 84300; 85025; 94760; 96360; 96361; 99285